=== PATIENT | male | born 1950 | race Caucasian/White ===

== ENCOUNTER → 2018-07-01 | Outpatient (CLI) | payer MEDICARE ==
[~2018-07-01] MED LIST: ACHD5005 PO; ACTOS15 MG PO; ASP325T PO; ASP81TEC PO; ASPI-983 PO; ASPI-992 PO; ATOR40TA PO; ATOR40TA70 PO; ATOR80TA; ATR20T PO; ATRV10T PO; AZIT250T12 PO; BENZ-36 PO; BUDE10.22 INH; CEFP200T2 PO; CEFU250T80 PO; CEPH500C PO; CLOP75TA28 PO; CLPD75T PO; CYCL5TAB PO; GABA-486 PO; GLIM4TAB PO; GLMP2T; HYDR25TA4 PO; INSU100I10 SQ; INSU100V5 SQ; IOHEXOL 350 MG/ML 100 ML (OMNIPAQUE 350) VIAL IV ONE; IPRA3AMP31 NEB; LEVO500T69 PO; LEVO500T80 PO; LEVO750T39 PO; LISI-552 PO; LISI20TA PO; LISI40TA PO; LSNP10T PO; METF-398 PO; METFOR850T PO; METO-370 PO; METO50TA7 PO; NAPR220T66 PO; NS 250 ML (IVPB) BAG IV ONE; NTR.4SL SL; OXYC-12 PO; PANT40TA PO; PANT40TA3 PO; PGLT30T; PGLT30T PO; PNT40TEC PO; PRD10T PO; PRD20T PO; RT-ALBUINH IH; RT-ALBUINH INH; RT-COMBINH IH; SITA100T PO; SITA100T12 PO
[2018-07-01 09:13] LABS: CREATININE SERUM 1.41 MG/DL (0.60-1.30)
--- NOTE | 2018-07-01 11:46 | Diagnostic Imaging Report ---
PROCEDURE: CT chest with contrast only. TECHNIQUE: Multiple contiguous axial images were obtained through the chest after administration of intravenous contrast. INDICATION: Followup pneumonia. COMPARISON: Comparison is made with prior CT chest from 02/21/2016. FINDINGS: No axillary lymphadenopathy is seen. Right paratracheal lymph node has decreased in size since prior study measuring approximately 15 mm x 11 mm compared with 21 mm x 16 mm on prior study. Subcarinal fullness has also improved since prior CT. Left hilum is unremarkable. No discrete lymphadenopathy in the right hilum is identified. No pericardial or pleural fluid is detected. The cavitary lesion involving the right lung apex is again noted measuring approximately 5.5 cm AP by 7.0 cm transverse compared with 5.8 cm x 6.5 cm on prior. The degree of peribronchial thickening along the inferior component of the air-containing mass does appear to be improved when compared with prior CT. There is some thickening along the fissure more inferiorly which appears similar to prior study. There is some mild parenchymal tiny nodularity in the right upper lobe anterior to the cavitary mass. There is some nodularity in the right lower lobe as well with several subcentimeter nodules present. A nodule in the inferior right lower lobe medially measures 6 mm in size. Several additional smaller nodules are present in this region as well. These were not present on prior exam. Left lung is unremarkable. Upper abdomen is unremarkable. IMPRESSION: 1. Right upper lobe cavitary mass, similar in appearance to the examination from 02/21/2016. Area of peribronchial thickening and infiltrate along the inferior margin of the lesion has improved. There has been some development of micronodularity in the right lower lobe since prior CT, indeterminate. This could be on an infectious/inflammatory basis but continued chest CT followup is recommended to confirm stability. Repeat CT chest in 6 months could be performed. Dictated by: Dictated on workstation # [id number]
== END ==
LOC: RAD 08:25
PROVIDERS: ATTEND Nurse Practitioner Family
DX: J18.1 Lobar pneumonia, unspecified organism (principal); R91.8 Other nonspecific abnormal finding of lung field
CPT/HCPCS: 36415; 71260; 82565; 84520

== ENCOUNTER 2018-07-07 05:34 | Outpatient (CLI) | payer MEDICARE ==
[~2018-07-07] VITALS: Ht 180.3 cm; Wt 103.9 kg
[~2018-07-07 05:34] MED LIST changes: -IOHEXOL 350 MG/ML 100 ML (OMNIPAQUE 350) VIAL IV ONE; -NS 250 ML (IVPB) BAG IV ONE
[2018-07-07] MEDS ORDERED: METO-387 PO (13:25)
[2018-07-07] MEDS ORDERED: AMLO10TA6 PO (13:25)
[2018-07-07] MEDS ORDERED: SPIR25TA5 PO (13:25)
== END 2018-07-07 13:36 | disposition home or self-care (01) ==
LOC: PREOP 05:34
PROVIDERS: ATTEND Surgery
DX: Z01.818 Encounter for other preprocedural examination (principal)

== ENCOUNTER 2018-07-14 08:38 | Day surgery (SDC) | payer MEDICARE, OTHER ==
[~2018-07-14] VITALS: Ht 180.3 cm; Wt 103.9 kg
[~2018-07-14 08:38] MED LIST changes: +AMLO10TA6 PO; +METO-387 PO; +SPIR25TA5 PO
[2018-07-14] MEDS ORDERED: LACTATED RINGERS 1,000 ML IV ONE (08:44)
[2018-07-14] MEDS ORDERED: LACTATED RINGERS 1,000 ML IV STA (08:48)
[2018-07-14 09:02] VITALS: BP 129/69
--- NOTE | 2018-07-14 09:32 | Progress Note-Pre Operative ---
Pre-Operative Progress Note H&P Reviewed The H&P was reviewed, patient examined and no changes noted. Time Seen by Provider: 09:30 Date H&P Reviewed: Jul 14, 2018 Time H&P Reviewed: 09:31 Pre-Operative Diagnosis: Surveillance colonoscopy MARY ARAGON DO Jul 14, 2018 09:32
[2018-07-14] MEDS ORDERED: PROPOFOL INJECTION 50 ML IV ONE (09:48)
[2018-07-14] MEDS ORDERED: MIDAZOLAM 2 MG/2 ML (VERSED) VIAL ONE (09:49)
[2018-07-14] MEDS ORDERED: proPOfol 200 MG/20 ML (DIPRIVAN) VIAL IV ONE (10:31)
--- NOTE | 2018-07-14 10:55 | Progress Note-Post Operative ---
Post-Operative Progess Note Surgeon (s)/Skin Therapist (s) Surgeon MARY ARAGON DO Skin Therapist: none Pre-Operative Diagnosis Surveillance colonoscopy Post-Operative Diagnosis colon polyps internal hemorrhoids Procedure & Operative Findings Date of Procedure 07/14/18 Procedure Performed/Findings Colonoscopy with snare polypectomy Anesthesia Type IV Sedation by CORRIDOR REDEVELOPMENT MANAGER Estimated Blood Loss Estimated blood loss (mL): scant Specimens/Packing Specimens Removed Transverse colon polyp x 2 Descending colon polyp MARY ARAGON DO Jul 14, 2018 10:55
--- NOTE | 2018-07-14 10:56 | Endoscopy Discharge Instruct ---
Endo Procedure/Findings Findings 1.: Polyp 2.: Internal Hemorrhoids Discharge Instructions - Activity: You might feel a little sleepy until tomorrow. This is due to the medicine you received to relax you. Until tomorrow, you should: NOT drive a car, operate machinery or power tools. NOT drink any alcoholic beverages. NOT make any important decisions or sign importortant papers. Do not return to work until tomorrow, unless otherwise instructed. Resume previous activities tomorrow. Diet: Start by taking liquids. If you tolerate liquids, advance to solid food. Make an appointment for one week. Notify Physician - If you experience excessive bleeding, unusual abdominal pain, fever, or chest pain, contact your doctor immediately. Follow-Up: - I have received and understand the above instructions and will call my doctor if I have any further questions. Patient Signature Date Nurse Signature Other (Relationship) MARY ARAGON DO Jul 14, 2018 10:56
[2018-07-14 11:25] VITALS: BP 153/71
[2018-07-14 11:45] VITALS: BP 144/67
[2018-07-14 11:50] VITALS: BP 144/67
--- NOTE | 2018-07-14 13:39 | Anesthesia-General Post-Op ---
MAC Patient Condition Mental Status/LOC: Same as Preop Cardiovascular: Satisfactory Nausea/Vomiting: Absent Respiratory: Satisfactory Pain: Controlled Complications: Absent Post Op Complications Complications None Follow Up Care/Instructions Patient Instructions None needed. Anesthesiology Discharge Order Discharge Order Patient is doing well, no complaints, stable vital signs, no apparent adverse anesthesia problems. No complications reported per nursing. JOSE BUCIO CRNA Jul 14, 2018 13:39
--- NOTE | 2018-07-15 00:05 | OPERATIVE REPORT ---
DATE OF SERVICE: PREOPERATIVE DIAGNOSIS: Surveillance colonoscopy. POSTOPERATIVE DIAGNOSES: 1. Polyps. 2. Internal hemorrhoids. 3. Diverticula. 4. Questionable varicosity or AVM. PROCEDURE: Colonoscopy with snare polypectomy. SURGEON: Evin Nguyen DO. CORN PRESS OPERATOR: None. ANESTHESIA: IV sedation by SHACKLER. SPECIMEN: Two polyps from the transverse colon, one from the descending colon. BLOOD LOSS: Scant. FLUIDS: Per anesthesia. POSTOPERATIVE CONDITION: Stable. INDICATION FOR PROCEDURE: The patient is a 68-year-old male who had colonoscopy 5 or 6 years ago and they found some polyps and needs a surveillance colonoscopy. FINDINGS: The patient had 2 polyps in the transverse colon, one in the descending colon. He also had what looked like very minimal and early diverticula and then in one area he had what looked like an AVM or varicosity, picture was taken and he had some internal hemorrhoids. PROCEDURE NOTE: After informed consent was obtained, the patient was brought to the endoscopy suite, placed in the bed left lateral decubitus position. He was administered IV sedation by the SHACKLER who then monitored his vitals the entire time, heart rate, blood pressure and pulse ox and the scope was inserted, pushed in. On the way in, in the transverse colon, saw 2 polyps, elected to do snare polypectomy of these and then continued on to the cecum, able to get into the cecum, took a picture of the appendiceal orifice, noted the ileocecal valve and then slowly withdrew the scope insufflating to look circumferentially at the lozano looking at the cecum up the ascending colon to the hepatic flexure, then down the transverse colon, saw small diverticula, took a picture of this and then into the descending colon. In the descending colon, saw what looked like an AVM or varicosity, took a picture of this. Continued down the descending colon, saw another flat polyp, did another snare polypectomy. Then continued down through the sigmoid into the rectum, retroflexed the rectal vault, saw some internal hemorrhoids, took a picture of this and then removed the scope. The patient tolerated procedure and was recovered in endoscopy suite. Job ID: [id number] DocumentID: [id number] Dictated Date: 07/14/2018 17:05:09 Commercial Instructor Supervisor Date: 07/15/2018 00:04:23 Dictated By: EVIN NGUYEN DO
== END 2018-07-14 11:50 | disposition home or self-care (01) ==
LOC: ENDO 08:38
PROVIDERS: ATTEND Surgery
DX: Z12.11 Encounter for screening for malignant neoplasm of colon (principal); K63.5 Polyp of colon; K57.30 Diverticulosis of large intestine without perforation or abscess without bleeding; K64.8 Other hemorrhoids; E11.43 Type 2 diabetes mellitus with diabetic autonomic (poly)neuropathy; I10 Essential (primary) hypertension; I25.10 Atherosclerotic heart disease of native coronary artery without angina pectoris; J44.9 Chronic obstructive pulmonary disease, unspecified; F17.210 Nicotine dependence, cigarettes, uncomplicated; E66.9 Obesity, unspecified; Z68.31 Body mass index [BMI] 31.0-31.9, adult; Z95.5 Presence of coronary angioplasty implant and graft; Z79.4 Long term (current) use of insulin; Z79.899 Other long term (current) drug therapy
CPT/HCPCS: 82962; 88305

== ENCOUNTER → 2018-12-03 | Outpatient (CLI) | payer OTHER, MEDICARE ==
[~2018-12-03] MED LIST changes: -AMLO10TA6 PO; +AMLO10TA7 PO
== END ==
LOC: CARD 08:32
PROVIDERS: ATTEND Internal Medicine Cardiovascular Disease
DX: I25.10 Atherosclerotic heart disease of native coronary artery without angina pectoris (principal); I11.0 Hypertensive heart disease with heart failure; I50.9 Heart failure, unspecified; E66.9 Obesity, unspecified; K64.0 First degree hemorrhoids; Q27.33 Arteriovenous malformation of digestive system vessel
CPT/HCPCS: 93306

== ENCOUNTER → 2018-12-14 | Outpatient (CLI) | payer MEDICARE, OTHER ==
[~2018-12-14] VITALS: Ht 180.3 cm; Wt 96.6 kg
[~2018-12-14] MED LIST changes: +CATHETER FLUSH 10 ML SYR IV PRN; +REGADENOSON 0.4 MG/5 ML SYR (LEXISCAN) IV ONE
[2018-12-14 09:27] VITALS: BP 132/79
[2018-12-14 09:38] VITALS: BP 126/71
--- NOTE | 2018-12-14 14:28 | STRESS TEST ---
DATE OF SERVICE: 12/14/2018 LEXISCAN MYOVIEW STRESS TEST REPORT REFERRING PHYSICIAN: Kirsty Lance and Antonette Meraz. Baseline heart rate is 76. Baseline blood pressure 132/79. Baseline EKG is sinus rhythm with ventricular bigeminy, nonspecific T-wave abnormality. In summary, the patient was injected with 10.06 mCi of technetium-99 Myoview and the resting images were obtained. Then, the patient received 0.4 mg of Lexiscan followed by 30.3 mCi of technetium-99 Myoview. Throughout the test, there were no EKG changes. The resting and stress images were reviewed and compared in the short axis, horizontal long axis, and vertical long axis views. Review of the images showed fix defect involving the whole inferior wall and inferolateral wall and basal to mid anterior lateral wall with mild sophie-infarct ischemia. SSS is 22, SDS is 4, TID value 1.07. On the gated images, the left ventricle appeared to be dilated with hypokinesia at the inferior wall. Calculated ejection fraction of 40%. CONCLUSION: 1. The patient tolerated Lexiscan well. 2. 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 3. Prominent left ventricle with hypokinesia at the inferior wall. Calculated ejection fraction of 40%. 4. Frequent premature ventricular contractions and ventricular bigeminy noted prior to the stress test and persisted during test Job ID: [id number] DocumentID: [id number] Dictated Date: 12/14/2018 12:03:01 Night Nurse Date: 12/14/2018 14:27:24 Dictated By: FADUMO TALAVERA MD [facility]
== END ==
LOC: CARD 08:09
PROVIDERS: ATTEND Internal Medicine Cardiovascular Disease
DX: I25.10 Atherosclerotic heart disease of native coronary artery without angina pectoris (principal); I11.0 Hypertensive heart disease with heart failure; I50.9 Heart failure, unspecified; Q27.33 Arteriovenous malformation of digestive system vessel; K64.0 First degree hemorrhoids; E66.9 Obesity, unspecified; Z68.29 Body mass index [BMI] 29.0-29.9, adult
CPT/HCPCS: 78452; 93017

== ENCOUNTER 2018-12-23 06:44 | Day surgery (SDC) | payer OTHER ==
[2018-12-23] VITALS (13 sets, daily range): BP systolic 105–128; BP diastolic 48–68
[~2018-12-23] VITALS: Ht 180.3 cm; Wt 96.2 kg
[~2018-12-23 06:44] MED LIST changes: -CATHETER FLUSH 10 ML SYR IV PRN; -REGADENOSON 0.4 MG/5 ML SYR (LEXISCAN) IV ONE
[2018-12-23] MEDS ORDERED: HEParin 1000 UNIT/ML (10ML VIAL) FOR BOLUS ONE (06:46)
[2018-12-23] MEDS ORDERED: LIDOCAINE 1% INJ 20 ML 20 ML VIAL ONE (06:46)
[2018-12-23] MEDS ORDERED: NS IV 1000 ML 3,000 ML ONE (06:46)
[2018-12-23] MEDS ORDERED: NS IV 1000 ML 1,000 ML IV SCH ×2 (07:00→08:49)
[2018-12-23 07:13] LABS: HEMOGLOBIN 12.9 G/DL (13.3-17.7); MEAN PLATELET VOLUME 10.9 FL (7.4-10.4); RED CELL DISTRIBUTION WIDTH 14.6 % (10.0-14.5)
[2018-12-23 07:30] LABS: PROTHROMBIN TIME PATIENT 13.3 SEC (12.2-14.7)
[2018-12-23] MEDS ORDERED: BUDE10.2 IH (07:31)
[2018-12-23] MEDS ORDERED: ATOR40TA PO (07:31)
[2018-12-23] MEDS ORDERED: ALOG12.52 PO (07:31)
[2018-12-23] MEDS ORDERED: TAMS0.4C98 PO (07:31)
[2018-12-23 07:35] LABS: ALBUMIN 3.7 GM/DL (3.2-4.5); BILIRUBIN,TOTAL 0.4 MG/DL (0.1-1.0); CREATININE SERUM 1.54 MG/DL (0.60-1.30); POTASSIUM 4.6 MMOL/L (3.6-5.0); TOTAL PROTEIN 6.7 GM/DL (6.4-8.2)
[2018-12-23] MEDS ORDERED: MIDAZOLAM 5 MG/5 ML (VERSED) VIAL ONE (07:42)
[2018-12-23] MEDS ORDERED: fentaNYL INJECTION 100 MCG/2 ML AMP ONE (07:42)
--- NOTE | 2018-12-23 07:51 | Diagnostic Imaging Report ---
INDICATION: Abnormal stress test, coronary artery disease, heart catheterization and shortness of breath. COMPARISON STUDY: Chest from October 06. FINDINGS: Chronic volume loss with pleural thickening of the right apex is again identified. The left lung is clear. Heart size and vascularity are normal. IMPRESSION: Stable chest with volume loss on the right side and right-sided pleural thickening. Dictated by: Dictated on workstation # [id number]
--- NOTE | 2018-12-23 08:49 | Cardiac Procedure Note-CS/ASA ---
Pre-Procedure Note Pre-Op Procedure Note H&P Reviewed The H&P was reviewed, patient examined and no changes noted. Date H&P Reviewed: Dec 23, 2018 Time H&P Reviewed: 08:00 Conscious Sedation Pre-Proced Time 08:00 ASA Score 3 For ASA 3 and 4: Consider anesthesia and medical clearance. Also, for patients with a history of failed moderate sedation consider anesthesia. Airway Lungs Heart ASA score ASA 1: a normal healthy patient ASA 2: a patient with a mild systemic disease (mid diabetes, controlled hypertension, obesity x ASA 3: a patient with a severe systemic disease that limits activity (angina , COPD, prior Myocardial infarction) ASA 4: a patient with an incapacitating disease that is a constant threat to life (CHF, renal failure) ASA 5: a moribund patient not expected to survive 24 hrs. (ruptured aneurysm) ASA 6: a declared brain- patient whose organs are being harvested. For emergent operations, add the letter E after the classification Mallampati Classification Grade 3 Sedation Plan Analgesia, Amnesia, Plan communicated to team members, Discussed options with patient/fam, Discussed risks with patient/fam The patient is an appropriate candidate to undergo the planned procedure, sedation, and anesthesia. The patient immediately re-assessed prior to indication. FADUMO TALAVERA MD Dec 23, 2018 08:49
--- NOTE | 2018-12-23 08:51 | Discharge Inst-Post CATH ---
Discharge Inst-CATH/EP Post Cardiac Cath/EP D/C Inst Follow Up/Plan Hold metformin for [address] Pizarro's office in 2-4 weeks CARDIAC CATH DISCHARGE INSTRUCTIONS *Hold Metformin for 48 hours post heart cath. ACTIVITY * Go Home directly and rest. * Limit activity of the leg (or wrist if it was used) for 7 days including aerobics, swimming, jogging, bicycling, etc. * Restrict stair-climbing for 7 days if possible, if not, climb up with your non -cath leg, then bring together on the same step. * Avoid lifting, pushing, pulling or excessive movement of the affected extremity for 7 days. * Customary sexual activity may be resumed after 2 days-use caution not to use a position that strains or causes pain to the affected extremity. * No driving for 24 hours. * NO SMOKING. * Avoid straining for bowel movements for 7 days. * Gentle walking on level ground is allowed. * Returning to work will depend on the type of procedure and the results. Your doctor will discuss this with you. CALL YOUR DOCTOR FOR ANY OF THE FOLLOWING: *If bleeding from the puncture site occurs- Apply gentle pressure to site with clean cloth and call your doctor or EMS. * If a knot or lump forms under the skin, increases in size, or causes pain. * If bruising appears to be worsening or moving further down your leg instead of disappearing. * Temperature above 101 F. CARE OF YOUR GROIN INCISION; * Bruising or purple discoloration of the skin near the puncture site is common. * You may shower only, no bathtub bathing for 5 days. Be careful to avoid slipping as your leg may feel stiff. * If a closure device was used on your femoral artery, please see the attached guide regarding care of the device and your leg. * Leave the dressing on, until removed by office staff. CARE OF YOUR WRIST INCISION; * Bruising or purple discoloration of the skin near the puncture site is common. * You may shower. * DO NOT submerge wrist. * Leave dressing on, until removed by office staff.. FADUMO PIZARRO MD Dec 23, 2018 08:51
[2018-12-23] MEDS ORDERED: PATIENT MAY USE OWN MEDS, ALL PO SCH (09:00)
--- NOTE | 2018-12-23 09:10 | Cardiac Cath Report ---
Cardiac Cath Report Physician (s)/Consumer Attorney (s) Physician FADUMO TALAVERA MD Pre-Procedure Diagnosis Pre-Procedure Diagnosis: coronary artery disease, peripheral arterial disease Post-Procedure Note Procedure Start Date: Dec 23, 2018 Name of Procedure: left heart catheterization Bilateral lower extremity runoff Findings/Procedure Note PROCEDURE NOTE: 68 years old gentleman with extensive history of coronary artery disease multiple interventions in the past. History of peripheral arterial disease, hypertension hyperlipidemia. Patient had an abnormal stress test, had an abnormal CARMEN and pain and numbness in his lower extremities. Next After explaining the procedure to the patient, all pros and cons were explained , all questions were answered. The patient signed the consent and then he was placed on the cardiac catheterization laboratory. Groin was prepped SL fashion local anesthesia was used. Sheath placed in the right femoralartery. Alvin right and left catheter were used to access the coronary system. Alvin right was advanced to the left ventricular cavity, pressure was measured no left ventriculogram was done to limit the amount of contrast used. Using 6 mL of contrast right lower extremity runoff was done through the sheath then I used a rim catheter across over to the left leg and did runoff to the left leg. At the end of the procedure the sheath was removed. Closure device was not used , manual pressure applied FINDINGS: Hemodynamics LV 124/25 and diastolic pressure of 25 Aorta 128/48 mean of 74 ANATOMY: Left Main has mild disease nonobstructive disease Left Anterior Descending is small to moderate in size, has patent stent in the midportion with mild to moderate disease diffusely in the LAD, the first diagonal branch is very small artery with severe stenosis. Not amendable to intervention Left Circumflex is moderate in size with multiple stents with mild to moderate in-stent restenosis, nonobstructive disease Right Coronory Artery is small to moderate in size, multiple stents with moderate in-stent restenosis, the right PDA has moderate to severe stenosis, fairly small artery LV Gram was not done, pressure was measured Right leg runoff: Heavily calcified arteries with moderate to severe stenosis in the mid to distal SFA, total occlusion below the trifurcation with reconstruction of the vessels down by the foot Left leg runoff: Heavily calcified artery diffusely, moderate to severe stenosis in the mid left SFA, total occlusion below the trifurcation very small artery reconstructed by collaterals CONCLUSION: 1. Heavily calcified coronary system with multiple stents in the LAD, circumflex and right coronary artery with [id number] in-stent restenosis nonobstructive disease. 2. Severe stenosis at the first diagonal branch and the right PDA, both arteries are fairly small arteries. Medical therapy is recommended 3. Heavily calcified right SFA with moderate to severe stenosis at the mid section, total occlusion below the trifurcation, fairly small arteries. 4. Heavily calcified left SFA with moderate to severe stenosis at the mid section, total occlusion below the trifurcation fairly small arteries. DISCUSSION AND RECOMMENDATION: Regarding the coronary system I recommend medical therapy, risk factors modification, no need for intervention at this time. Regarding the peripheral arterial disease, I can consider intervention on the SFA bilaterally patient has significant symptoms. I would recommend intervention if patient started to have critical limb ischemia otherwise I recommend starting an exercise program and medical therapy Anesthesia Type: Conscious Sedation Estimated blood loss (mL): 30 ml Contrast Amount: 45 ml Total Radiation Dose: 746 mGy Post-Procedure Diagnosis Post-operative diagnosis: Coronary artery disease Peripheral arterial disease Claudication Hypertension Hyperlipidemia FADUMO TALAVERA MD Dec 23, 2018 09:10
== END 2018-12-23 13:50 | disposition home or self-care (01) ==
LOC: CATH 06:44 → SDC 09:06 → CATH 13:50
PROVIDERS: ATTEND Internal Medicine Cardiovascular Disease
DX: I25.10 Atherosclerotic heart disease of native coronary artery without angina pectoris (principal); E11.51 Type 2 diabetes mellitus with diabetic peripheral angiopathy without gangrene; I11.0 Hypertensive heart disease with heart failure; I50.9 Heart failure, unspecified; E78.2 Mixed hyperlipidemia; I65.29 Occlusion and stenosis of unspecified carotid artery; J44.9 Chronic obstructive pulmonary disease, unspecified; F17.210 Nicotine dependence, cigarettes, uncomplicated; Z79.4 Long term (current) use of insulin; Z79.899 Other long term (current) drug therapy; Z79.82 Long term (current) use of aspirin; Z86.010 Personal history of colon polyps
CPT/HCPCS: 36415; 71045; 75716; 80053; 80061; 85027; 85610; 85730; 87081; 93458

== ENCOUNTER 2019-03-17 14:07 | Outpatient (RCR) | payer OTHER, MEDICARE ==
[~2019-03-17 14:07] MED LIST changes: +ALOG12.52 PO; +BUDE10.2 IH; +TAMS0.4C98 PO
== END 2019-04-01 | disposition home or self-care (01) ==
LOC: CR 14:07
PROVIDERS: ATTEND Internal Medicine Cardiovascular Disease
DX: I20.8 Other forms of angina pectoris (principal)
CPT/HCPCS: 82962; 93798

== ENCOUNTER 2019-05-24 10:00 | Outpatient (RCR) | payer MEDICARE, OTHER ==
[2019-06-11] MEDS ORDERED: NICO-627 BC (14:59)
[2019-06-11] MEDS ORDERED: NAPR-915 PO (14:59)
[2019-06-11] MEDS ORDERED: MENT113G5 TP (14:59)
[2019-06-11] MEDS ORDERED: ALBU18HF2 INH (14:59)
[2019-06-11] MEDS ORDERED: METF-398 PO (14:59)
[2019-06-11] MEDS ORDERED: TIZA4TAB4 PO (14:59)
[2019-06-11] MEDS ORDERED: NICO-533 TD (14:59)
[2019-06-11] MEDS ORDERED: GLIP5TAB13 PO (14:59)
[2019-06-11] MEDS ORDERED: IPRA3AMP31 IH (14:59)
[2019-06-11] MEDS ORDERED: NICO-588 TD (15:07)
[2019-06-11] MEDS ORDERED: METO-395 PO (15:09)
[2019-06-14] MEDS ORDERED: FLUT16SP22 NS (10:05)
[2019-06-14] MEDS ORDERED: MONT10TA24 PO (10:05)
[2019-06-14] MEDS ORDERED: LORA10TA7 PO (10:05)
[2019-06-14] MEDS ORDERED: CEFD300C3 PO (10:06)
== END 2019-06-23 | disposition home or self-care (01) ==
LOC: CR3 10:00
PROVIDERS: ATTEND Internal Medicine Cardiovascular Disease
DX: Z29.8 Encounter for other specified prophylactic measures (principal)

== ENCOUNTER 2019-05-24 10:24 | Outpatient (RCR) | payer OTHER, MEDICARE ==
[2019-06-11] MEDS ORDERED: NAPR-915 PO (14:59)
[2019-06-11] MEDS ORDERED: GLIP5TAB13 PO (14:59)
[2019-06-11] MEDS ORDERED: NICO-533 TD (14:59)
[2019-06-11] MEDS ORDERED: MENT113G5 TP (14:59)
[2019-06-11] MEDS ORDERED: IPRA3AMP31 IH (14:59)
[2019-06-11] MEDS ORDERED: TIZA4TAB4 PO (14:59)
[2019-06-11] MEDS ORDERED: ALBU18HF2 INH (14:59)
[2019-06-11] MEDS ORDERED: NICO-627 BC (14:59)
[2019-06-11] MEDS ORDERED: METF-398 PO (14:59)
[2019-06-11] MEDS ORDERED: NICO-588 TD (15:07)
[2019-06-11] MEDS ORDERED: METO-395 PO (15:09)
[2019-06-14] MEDS ORDERED: FLUT16SP22 NS (10:05)
[2019-06-14] MEDS ORDERED: MONT10TA24 PO (10:05)
[2019-06-14] MEDS ORDERED: LORA10TA7 PO (10:05)
[2019-06-14] MEDS ORDERED: CEFD300C3 PO (10:06)
== END 2019-07-06 | disposition home or self-care (01) ==
LOC: CR 10:24
PROVIDERS: ATTEND Internal Medicine Cardiovascular Disease
DX: I20.8 Other forms of angina pectoris (principal)
CPT/HCPCS: 93798

== ENCOUNTER 2019-06-11 10:25 | Inpatient (IN) | payer MEDICARE, OTHER ==
[~2019-06-11] VITALS: Ht 180.3 cm; Wt 102.1 kg
[~2019-06-11 10:25] MED LIST changes: +methylPREDNISolone 125 MG (Solu-MEDROL) VIAL ONE
--- NOTE | 2019-06-11 10:40 | ED Respiratory ---
General Chief Complaint: Respiratory Problems Stated Complaint: SOA Source: patient, family Exam Limitations: no limitations History of Present Illness Date Seen by Provider: Jun 11, 2019 Time Seen by Provider: 10:40 Initial Comments To ER with shortness of breath. He was referred here from Dr. Pizarro's office where he presented with oxygen saturation of about 70%. He States he was there for routine follow-up visit. Patient states he smokes at least one pack of cigarettes per day and has done so for many years. He states that he wears oxygen at home but is not prescribed. He had an episode of pneumonia a few years ago, was discharged home on a oxygen concentrator which was never picked up. He's been wearing that at home at about 2-4 L prn. states last night he was unable to sleep lying flat, had to have his head elevated. Denies fevers chills or cough. Timing/Duration: constant, getting worse Severity: moderate Prior Episodes/Possible Cause: occasional episodes Associated Symptoms: shortness of breath, wheezing Allergies and Home Medications Allergies Coded Allergies: No Known Drug Allergies (Verified , 05/02/08) Home Medications Albuterol Sulfate 6.7 Gm Hfa.aer.ad, 2 PUFF IH Q4H PRN for SHORTNESS OF BREATH, (Reported) Alogliptin Benzoate 12.5 Mg Tablet, 12.5 MG PO DAILY, (Reported) Amlodipine Besylate 10 Mg Tablet, 10 MG PO DAILY, (Reported) Aspirin 81 Mg Tablet.dr, 81 MG PO DAILY, (Reported) Aspirin/Acetaminophen/Caffeine 1 Each Tablet, 2 TAB PO DAILY PRN for PAIN-MILD, (Reported) Atorvastatin Calcium 40 Mg Tablet, 40 MG PO HS, (Reported) Budesonide/Formoterol Fumarate 10.2 Gm Hfa.aer.ad, 2 PUFF IH BID, (Reported) Clopidogrel Bisulfate 75 Mg Tablet, 75 MG PO DAILY, (Reported) Gabapentin 100 Mg Capsule, 100 MG PO BID, (Reported) Glimepiride 4 Mg Tablet, 4 MG PO DAILY, (Reported) Hydrochlorothiazide 25 Mg Tablet, 25 MG PO DAILY, (Reported) Insulin Glargine,Hum.rec.anlog 100 Unit/1 Ml Insuln.pen, 16 UNITS SQ DAILY@1200, (Reported) Lisinopril 40 Mg Tablet, 40 MG PO DAILY, (Reported) Metoprolol Succinate 25 Mg Tab.er.24h, 50 MG PO DAILY, (Reported) Pantoprazole Sodium 40 Mg Tablet.dr, 40 MG PO DAILY, (Reported) Spironolactone 25 Mg Tablet, 25 MG PO DAILY, (Reported) Tamsulosin HCl 0.4 Mg Cap, 0.4 MG PO DAILY, (Reported) Patient Home Medication List Home Medication List Reviewed: Yes Review of Systems Review of Systems Constitutional: see HPI EENTM: see HPI Respiratory: see HPI, short of breath Cardiovascular: no symptoms reported Genitourinary: no symptoms reported Musculoskeletal: no symptoms reported Skin: no symptoms reported Psychiatric/Neurological: No Symptoms Reported Hematologic/Lymphatic: No Symptoms Reported Past Pacdsrn-Jbgdiq-Kfjmgy Hx Patient Social History Type Used: Cigarettes Recent Hopitalizations: No Immunizations Up To Date Tetanus Booster (TDap): Unknown PED Vaccines UTD: Yes Date of Pneumonia Vaccine: Jul 25, 2017 Date of Influenza Vaccine: Jul 23, 2018 Seasonal Allergies Seasonal Allergies: No Past Medical History Surgeries: Yes (CHEST TUBE INSERTION, heart cathx9 stents) Coronary Stent Respiratory: Yes COPD Currently Using CPAP: No Currently Using BIPAP: No Cardiac: Yes Coronary Artery Disease, Hypertension Neurological: No Neuropathy Reproductive Disorders: No Genitourinary: Yes Gastrointestinal: No Hepatitis, Polyps Musculoskeletal: Yes Arthritis Endocrine: Yes Diabetes, Non-Insulin dep HEENT: No (hemmoraging in back of both eyes-pt see specialist for it) Cataract Cancer: No Psychosocial: No Integumentary: No Blood Disorders: No Family Medical History Patient reports no known family medical history. No Pertinent Family Hx Physical Exam Vital Signs - First Documented 06/11/19 06/11/19 10:25 10:44 Temp 37.0 Pulse 85 Resp 28 B/P (MAP) 152/82 (105) Pulse Ox 96 O2 Delivery OxyMask O2 Flow Rate 11.00 Capillary Refill : Height: 5'11.00" Weight: 212lbs. 0.0oz. 96.096921ql; 29.6 BMI Method:Stated General Appearance: WD/WN, no apparent distress, other (oxygen saturation 66% with good waveform on arrival. Quickly increased to 95% with supplemental oxygen at 10 L via mask. Despite the hypoxia he is alert and oriented conversing, speaks in full sentences, no accessory muscle use. ) Eyes: Bilateral Eye Normal Inspection, Bilateral Eye PERRL, Bilateral Eye EOMI HEENT: PERRL/EOMI, normal ENT inspection Neck: non-tender, full range of motion, other (there is no jugular vein distention) Respiratory: no respiratory distress, no accessory muscle use, decreased breath sounds (decreased throughout, crackles bilateral bases) Cardiovascular: regular rate, rhythm, no murmur Gastrointestinal: normal bowel sounds, non tender, soft Extremities: normal range of motion, non-tender (2+ pitting edema bilateral lower extremities which she states is normal for him) Neurologic/Psychiatric: alert, normal mood/affect, oriented x 3 Skin: normal color, warm/dry Progress/Results/Core Measures Suspected Sepsis SIRS Temperature: Pulse: Respiratory Rate: Laboratory Tests 06/11/19 10:33: White Blood Count 12.5H Blood Pressure / Mean: Laboratory Tests 06/11/19 10:33: Creatinine 1.60H, INR Comment 1.1, Platelet Count 280, Total Bilirubin 0.5 Results/Orders Lab Results Laboratory Tests Test 06/11/19 10:33 Range/Units White Blood Count 12.5 H 4.3-11.0 10^3/uL Red Blood Count 4.07 L 4.35-5.85 10^6/uL Hemoglobin 11.0 L 13.3-17.7 G/DL Hematocrit 35 L 40-54 % Mean Corpuscular Volume 87 80-99 FL Mean Corpuscular Hemoglobin 27 25-34 PG Mean Corpuscular Hemoglobin Concent 31 L 32-36 G/DL Red Cell Distribution Width 16.7 H 10.0-14.5 % Platelet Count 280 130-400 10^3/uL Mean Platelet Volume 10.9 H 7.4-10.4 FL Neutrophils (%) (Auto) 83 H 42-75 % Lymphocytes (%) (Auto) 8 L 12-44 % Monocytes (%) (Auto) 9 0-12 % Eosinophils (%) (Auto) 1 0-10 % Basophils (%) (Auto) 0 0-10 % Neutrophils # (Auto) 10.3 H 1.8-7.8 X 10^3 Lymphocytes # (Auto) 1.0 1.0-4.0 X 10^3 Monocytes # (Auto) 1.1 H 0.0-1.0 X 10^3 Eosinophils # (Auto) 0.1 0.0-0.3 10^3/uL Basophils # (Auto) 0.0 0.0-0.1 10^3/uL Prothrombin Time 14.3 12.2-14.7 SEC INR Comment 1.1 0.8-1.4 Activated Partial Thromboplast Time 27 24-35 SEC Blood Gas Puncture Site LR Blood Gas Patient Temperature 36.8 Arterial Blood pH 7.35 L 7.37-7.43 Arterial Blood Partial Pressure CO2 47 H 35-45 MMHG Arterial Blood Partial Pressure O2 81 79-93 MMHG Arterial Blood HCO3 25 23-27 MMOL/L Arterial Blood Total CO2 26.8 21.0-31.0 MMOL/L Arterial Blood Oxygen Saturation 94 94-100 % Arterial Blood Base Excess 0.5 -2.5-2.5 MMOL/L Howie Test YES-POS Blood Gas Ventilator Setting NO Blood Gas Inspired Oxygen 10L Sodium Level 141 135-145 MMOL/L Potassium Level 4.4 3.6-5.0 MMOL/L Chloride Level 106 98-107 MMOL/L Carbon Dioxide Level 24 21-32 MMOL/L Anion Gap 11 5-14 MMOL/L Blood Urea Nitrogen 26 H 7-18 MG/DL Creatinine 1.60 H 0.60-1.30 MG/DL Estimat Glomerular Filtration Rate 43 BUN/Creatinine Ratio 16 Glucose Level 122 H 70-105 MG/DL Calcium Level 9.0 8.5-10.1 MG/DL Corrected Calcium 9.3 8.5-10.1 MG/DL Magnesium Level 1.6 1.6-2.4 MG/DL Total Bilirubin 0.5 0.1-1.0 MG/DL Aspartate Amino Transf (AST/SGOT) 17 5-34 U/L Alanine Aminotransferase (ALT/SGPT) 13 0-55 U/L Alkaline Phosphatase 70 40-136 U/L Total Creatine Kinase 155 30-200 U/L Creatine Kinase MB 4.9 <6.6 NG/ML Troponin I < 0.028 <0.028 NG/ML B-Type Natriuretic Peptide 411.0 H <100.0 PG/ML Total Protein 6.8 6.4-8.2 GM/DL Albumin 3.6 3.2-4.5 GM/DL My Orders Orders - RICHIE LOFTON APRN Methylprednisolone Sod Succ (Solu-Medrol (06/11/19 10:25) Methylprednisolone Sod Succ (Solu-Medrol (06/11/19 10:45) Albuterol/Ipra Inhalation Soln (Duoneb I (06/11/19 10:45) Svn Small Volume Nebulizer (06/11/19 10:38) Piperacillin Sodium/Tazobactam (Zosyn Vi (06/11/19 11:30) Medications Given in ED Current Medications Medications Dose Ordered Sig/[place] Route Start Time Stop Time Status Last Admin Dose Admin Albuterol/ Ipratropium 3 ml ONCE ONCE INH 06/11/19 10:45 06/11/19 10:46 DC 06/11/19 10:44 3 ML Methylprednisolone Sodium Succinate 125 mg ONCE ONCE IVP 06/11/19 10:45 06/11/19 10:46 DC 06/11/19 10:35 125 MG Vital Signs/I&O 06/11/19 06/11/19 10:25 10:44 Temp 37.0 Pulse 85 Resp 28 B/P (MAP) 152/82 (105) Pulse Ox 96 O2 Delivery OxyMask O2 Flow Rate 11.00 Capillary Refill : Diagnostic Imaging Diagonstic Imaging: Xray Plain Films/CT/US/NM/MRI: chest Comments NAME: VINCENT JASSO MED REC#: [id number] PT STATUS: REG ER : 1950 PHYSICIAN: VICKEY JONES DO ADMIT DATE: 06/11/19/ER Draft Date of Exam:06/11/19 CHEST 1 VIEW, AP/PA ONLY INDICATION: Shortness of air. TIME OF EXAM: 10:50 AM Correlation is made with prior study 12/23/2018. FINDINGS: The heart size is stable. Chronic right upper lobe density is stable. Patient has developed some patchy parenchymal density in the right base since prior. Right hemidiaphragm is chronically elevated. Left lung is fairly clear. No effusion or pneumothorax is seen. IMPRESSION: Development of patchy right basilar infiltrate or atelectasis since exam from 12/23/2018. Dictated on workstation # [id number] Dict: 06/11/19 1102 Trans: 06/11/19 1106 [id number] Interpreted by: MATTHIEU RUDD MD Electronically signed by: Departure Communication (Admissions) Time/Spoke to Admitting Phy: 11:[address] Bacon, agrees to admit. At this time he is at 6 L via mask, 97%. Blood pressure 136/63, heart rate is 86. Speaks in full sentences, no respiratory distress. Respiratory rate is 24. Impression Primary Impression: COPD exacerbation Additional Impression: Pneumonia Disposition: ADMITTED INPATIENT Condition: Stable Admissions Decision to Admit Reason: Admit from ER (General) Decision to Admit/Date: Jun 11, 2019 Time/Decision to Admit Time: 11:24 Departure-Patient Inst. Referrals: [facility] (PCP) Primary Care Physician MIKEY ZAZUETA APRN (Family) Primary Care Physician RICHIE LOFTON APRN Jun 11, 2019 10:40
[2019-06-11 10:43] LABS: BASOPHILS % (AUTO) 0 % (0-10); EOSINOPHILS # (AUTO) 0.1 10^3/uL (0.0-0.3); EOSINOPHILS % (AUTO) 1 % (0-10); HEMATOCRIT 35 % (40-54); LYMPHOCYTES % (AUTO) 8 % (12-44); MEAN CORPUSCULAR HEMOGLOBIN 27 PG (25-34); MEAN CORPUSCULAR HGB CONC 31 G/DL (32-36); MEAN CORPUSCULAR VOLUME 87 FL (80-99); MEAN PLATELET VOLUME 10.9 FL (7.4-10.4); MONOCYTES # (AUTO) 1.1 X 10^3 (0.0-1.0); MONOCYTES % (AUTO) 9 % (0-12); NEUTROPHILS # (AUTO) 10.3 X 10^3 (1.8-7.8); NEUTROPHILS % (AUTO) 83 % (42-75); PLATELET COUNT 280 10^3/uL (130-400); RED CELL DISTRIBUTION WIDTH 16.7 % (10.0-14.5); WHITE BLOOD COUNT 12.5 10^3/uL (4.3-11.0)
[2019-06-11] MEDS ORDERED: methylPREDNISolone 125 MG (Solu-MEDROL) VIAL IVP ONE (10:45)
[2019-06-11] MEDS ORDERED: RT-ALBUTEROL/IPRATROPIUM 3 ML (DUONEB) VIAL INH ONE (10:45)
[2019-06-11 10:46] LABS: ABG BASE EXCESS 0.5 MMOL/L (-2.5-2.5); ABG OXYGEN SATURATION 94 % (94-100); ABG PCO2 47 MMHG (35-45); ABG PH 7.35 (7.37-7.43); ABG PO2 81 MMHG (79-93); ABG TCO2 26.8 MMOL/L (21.0-31.0)
--- NOTE | 2019-06-11 10:46 | NUR ---
PT UNSURE OF MEDS
[2019-06-11 10:47] LABS: ALLENS TEST YES-POS; INSPIRED O2 10L; PATIENT TEMP 36.8; VENTILATOR NO
[2019-06-11 10:50] LABS: INR 1.1 (0.8-1.4); PROTHROMBIN TIME PATIENT 14.3 SEC (12.2-14.7)
[2019-06-11 11:00] LABS: ALANINE AMINOTRANSFERASE 13 U/L (0-55); ALBUMIN 3.6 GM/DL (3.2-4.5); ALKALINE PHOSPHATASE 70 U/L (40-136); BILIRUBIN,TOTAL 0.5 MG/DL (0.1-1.0); BUN/CREATININE RATIO 16; CARBON DIOXIDE 24 MMOL/L (21-32); CHLORIDE 106 MMOL/L (98-107); CREATINE KINASE 155 U/L (30-200); GFR ESTIMATED 43; GLUCOSE 122 MG/DL (70-105); MAGNESIUM 1.6 MG/DL (1.6-2.4); POTASSIUM 4.4 MMOL/L (3.6-5.0); SODIUM 141 MMOL/L (135-145); TOTAL PROTEIN 6.8 GM/DL (6.4-8.2)
[2019-06-11 11:06] LABS: CREATINE KINASE MB 4.9 NG/ML (<6.6)
--- NOTE | 2019-06-11 11:06 | Diagnostic Imaging Report ---
INDICATION: Shortness of air. TIME OF EXAM: 10:50 AM Correlation is made with prior study 12/23/2018. FINDINGS: The heart size is stable. Chronic right upper lobe density is stable. Patient has developed some patchy parenchymal density in the right base since prior. Right hemidiaphragm is chronically elevated. Left lung is fairly clear. No effusion or pneumothorax is seen. IMPRESSION: Development of patchy right basilar infiltrate or atelectasis since exam from 12/23/2018. Dictated by: Dictated on workstation # [id number]
--- NOTE | 2019-06-11 11:21 | NUR ---
PT 02 TURNED DOWN TO 6L VIA MASK SAT 97%
[2019-06-11] MEDS: PIPERACILLIN SODIUM/TAZOBACTAM 4.5 GM in NS (IVPB) 100 ML IV ONE ×2 (12:15→12:30)
[2019-06-11 12:25] VITALS: BP 132/68
[2019-06-11] MEDS ORDERED: ACETAMINOPHEN 325 MG TABLET PO PRN (13:15)
[2019-06-11] MEDS ORDERED: CATHETER FLUSH 10 ML SYR IV PRN (13:15)
[2019-06-11 13:59] VITALS: BP 124/65
[2019-06-11] MEDS: CATHETER FLUSH 10 ML SYR IV SCH ×2 (14:56→21:58)
[2019-06-11] MEDS ORDERED: METF-398 PO (14:59)
[2019-06-11] MEDS ORDERED: NICO-533 TD (14:59)
[2019-06-11] MEDS ORDERED: NAPR-915 PO (14:59)
[2019-06-11] MEDS ORDERED: MENT113G5 TP (14:59)
[2019-06-11] MEDS ORDERED: NICO-627 BC (14:59)
[2019-06-11] MEDS ORDERED: GLIP5TAB13 PO (14:59)
[2019-06-11] MEDS ORDERED: TIZA4TAB4 PO (14:59)
[2019-06-11] MEDS ORDERED: ALBU18HF2 INH (14:59)
[2019-06-11] MEDS ORDERED: IPRA3AMP31 IH (14:59)
[2019-06-11] MEDS ORDERED: RT-ALBUTEROL/IPRATROPIUM 3 ML (DUONEB) VIAL INH PRN (15:00)
[2019-06-11] MEDS ORDERED: NICO-588 TD (15:07)
[2019-06-11] MEDS ORDERED: METO-395 PO (15:09)
--- NOTE | 2019-06-11 15:17 | NUR ---
PATIENT DOES NOT KNOW HIS MEDICATIONS. HE STATES HE GETS SOME AT [facility] AND [facility] [place]. I TRIED TO CALL HIS BUT HAD TO LEAVE A MESSAGE AND SHE HAS NOT CALLED BACK AT THIS TIME. I [facility] LIST [facility] FROM [facility]. THE EXT MED HX SHOWS ALL OF [facility]'S FILLS EXCEPT ADDITIONALLY THEY FILLED DUONEB Q6H PRN 05-26-19. [facility] FILL[facility]: 05-21-19 NICOTINE 21MG PATCH DAILY #14 05-19-19 NAPROXEN 500MG BID #120 05-19-19 GLIPIZIDE 5MG 1 & 1/2 TAB DAILY #135 04-20-19 SYMBICORT 160 2 PUFFS BID #3 04-20-19 NICOTINE L2MG LOZENGE Q1H PRN #81 04-19-19 INSULIN GLARGINE 10 UNITS DAILY 04-16-19 NICOTINE 14MG PATCH DAILY #28 04-15-19 ALOGLIPTIN 12.5MG DAILY #90 04-14-19 TAMSULOSIN 0.4MG DAILY #90 04-07-19 TIZANIDINE 4MG 1/2 BID PRN #30 04-07-19 MENTHOL/M-SALICYLATE 10-25% TOP CREAM AAA TID PRN 03-17-19 ATORVASTATIN 40MG 1 TAB HS #90 NON-VA MEDS INCLUDED ON THE [facility]S MED LIST: ASPIRIN 81MG DAILY (ASSUME ITS OTC) PLAVIX 75MG DAILY HCTZ 25MG 1/2 TAB DAILY LISINOPRIL 40MG 1/2 TAB DAILY METOPROLOL SUCCINATE 100MG 1/2 TAB DAILY PROTONIX 40MG DAILY SINCE I WAS UNABLE TO VERIFY THE LAST FILL DATES ON THESE MEDICATIONS I DID NOT REVIEW THEM BUT DID LEAVE THEM ON THE MED REC. PREVIOUSLY REPORTED ON THE MED REC WAS SPIRONOLACTONE, GLIMEPIRIDE, AND EXCEDRIN. I REMOVED THESE AT THIS TIME SINCE THEY HAVE NOT BEEN FILLED RECENTLY AT [facility] AND ARE NOT REPORTED ON THE LIST FROM THE [facility].
[2019-06-11 16:00] VITALS: BP 124/64
[2019-06-11] MEDS: inSUlin ASPART (NovoLOG) 1 UNIT/0.01 ML (CHARGE PER UNIT) SC SCH ×2 (17:23→21:58)
[2019-06-11] MEDS: methylPREDNISolone 125 MG (Solu-MEDROL) VIAL IV SCH (17:24)
[2019-06-11] MEDS: RT-ALBUTEROL/IPRATROPIUM 3 ML (DUONEB) VIAL INH SCH ×2 (19:38→23:15)
[2019-06-11 19:53] VITALS: BP 107/86
[2019-06-11 20:00] VITALS: BP 137/79
[2019-06-11] MEDS ORDERED: NICOTINE 21 MG (NICODERM) PATCH ONE (20:50)
[2019-06-11] MEDS ORDERED: GABAPENTIN 100 MG (NEURONTIN) CAP ONE (20:51)
[2019-06-11 21:00] VITALS: BP 116/77
[2019-06-11] MEDS: PIPERACILLIN/TAZO 4.5 GM/NS 100 ML IV SCH ×2 (21:58)
[2019-06-11] MEDS: GABAPENTIN 100 MG (NEURONTIN) CAP PO SCH (21:58)
[2019-06-12 00:02] VITALS: BP 136/68
[2019-06-12] MEDS: RT-ALBUTEROL/IPRATROPIUM 3 ML (DUONEB) VIAL INH SCH ×5 (02:51→18:56)
[2019-06-12] MEDS: methylPREDNISolone 125 MG (Solu-MEDROL) VIAL IV SCH (03:01)
[2019-06-12 03:36] LABS: BASOPHILS % (AUTO) 0 % (0-10); EOSINOPHILS % (AUTO) 0 % (0-10); HEMATOCRIT 35 % (40-54); LYMPHOCYTES # (AUTO) 0.4 X 10^3 (1.0-4.0); LYMPHOCYTES % (AUTO) 4 % (12-44); MEAN CORPUSCULAR HEMOGLOBIN 27 PG (25-34); MEAN CORPUSCULAR HGB CONC 32 G/DL (32-36); MEAN CORPUSCULAR VOLUME 86 FL (80-99); MEAN PLATELET VOLUME 11.4 FL (7.4-10.4); MONOCYTES # (AUTO) 0.3 X 10^3 (0.0-1.0); MONOCYTES % (AUTO) 2 % (0-12); NEUTROPHILS # (AUTO) 10.5 X 10^3 (1.8-7.8); NEUTROPHILS % (AUTO) 94 % (42-75); PLATELET COUNT 286 10^3/uL (130-400); RED CELL DISTRIBUTION WIDTH 16.6 % (10.0-14.5); WHITE BLOOD COUNT 11.1 10^3/uL (4.3-11.0)
[2019-06-12 04:00] LABS: ALBUMIN 3.5 GM/DL (3.2-4.5); BILIRUBIN,TOTAL 0.5 MG/DL (0.1-1.0); CALCIUM 8.8 MG/DL (8.5-10.1); CREATININE SERUM 2.12 MG/DL (0.60-1.30); POTASSIUM 4.9 MMOL/L (3.6-5.0)
[2019-06-12 04:27] LABS: LYMPHOCYTES % (MANUAL) 4 %; NEUTROPHILS % (MANUAL) 96 %
[2019-06-12] MEDS ORDERED: inSUlin ASPART (NovoLOG) 1 UNIT/0.01 ML (CHARGE PER UNIT) ONE (04:49)
[2019-06-12 05:05] VITALS: BP 130/70
[2019-06-12] MEDS: CATHETER FLUSH 10 ML SYR IV SCH ×3 (05:05→22:00)
[2019-06-12] MEDS: PIPERACILLIN/TAZO 4.5 GM/NS 100 ML IV SCH ×6 (05:05→20:51)
[2019-06-12] MEDS: inSUlin ASPART (NovoLOG) 1 UNIT/0.01 ML (CHARGE PER UNIT) SC SCH ×4 (05:05→20:52)
[2019-06-12 06:07] LABS: BILIRUBIN,URINE NEGATIVE (NEGATIVE); CLARITY,URINE CLEAR; COLOR,URINE YELLOW; GLUCOSE, URINE (UA) 4+ (NEGATIVE); KETONES,URINE NEGATIVE (NEGATIVE); LEUKOCYTE ESTERASE ,URINE 1+ (NEGATIVE); NITRITE,URINE NEGATIVE (NEGATIVE); PH,URINE 5 (5-9); PROTEIN,URINE 3+ (NEGATIVE); UROBILINOGEN,URINE NORMAL (NORMAL)
[2019-06-12 06:29] LABS: BACTERIA,URINE FEW /HPF; GRANULAR CASTS,URINE 0-2 /LPF; WBC,URINE 0-2 /HPF
--- NOTE | 2019-06-12 06:50 | Pulmonary Consultation ---
History of Present Illness History of Present Illness Date of Consultation 06/12/19 06:45 Date of Admission Allergies and Home Medications Allergies Coded Allergies: No Known Drug Allergies (Verified , 05/02/08) Home Medications Albuterol Sulfate 18 Gm Hfa.aer.ad, 2 PUFF INH Q4H PRN for SHORTNESS OF BREATH, (Reported) Alogliptin Benzoate 12.5 Mg Tablet, 12.5 MG PO DAILY, (Reported) Amlodipine Besylate 10 Mg Tablet, 10 MG PO DAILY, (Reported) Aspirin 81 Mg Tablet.dr, 81 MG PO DAILY, (Reported) Atorvastatin Calcium 40 Mg Tablet, 40 MG PO HS, (Reported) Budesonide/Formoterol Fumarate 10.2 Gm Hfa.aer.ad, 2 PUFF IH BID, (Reported) Clopidogrel Bisulfate 75 Mg Tablet, 75 MG PO DAILY, (Reported) Gabapentin 100 Mg Capsule, 100 MG PO BID, (Reported) Glipizide 5 Mg Tablet, 7.5 MG PO DAILY, (Reported) TAKES 1 & 1/2 (5MG) TABLETS Hydrochlorothiazide 25 Mg Tablet, 12.5 MG PO DAILY, (Reported) TAKES 1/2 (25MG) TABLET Insulin Glargine,Hum.rec.anlog 100 Unit/1 Ml Insuln.pen, 10 UNITS SQ HS, (Reported) Ipratropium/Albuterol Sulfate 3 Ml Ampul.neb, 3 ML IH Q6H PRN for SHORTNESS OF BREATH, (Reported) Lisinopril 40 Mg Tablet, 20 MG PO DAILY, (Reported) TAKES 1/2 (40MG) TABLET Menthol 113 Gm Gel..gram., TP TID PRN for MUSCLE PAIN, (Reported) Metformin HCl 850 Mg Tablet, 850 MG PO BID WITH MEALS, (Reported) Metoprolol Succinate 100 Mg Tab.er.24h, 50 MG PO DAILY, (Reported) TAKES 1/2 (100MG) TABLET Naproxen 500 Mg Tablet, 500 MG PO BID PRN for PAIN-MILD, (Reported) Nicotine 1 Each Patch.td24, 21 MG TD DAILY, (Reported) Nicotine Polacrilex 2 Mg Lozenge, 2 MG BC Q1H PRN for SMOKING CESSATION, (Reported) Pantoprazole Sodium 40 Mg Tablet.dr, 40 MG PO DAILY, (Reported) Tamsulosin HCl 0.4 Mg Cap, 0.4 MG PO DAILY, (Reported) Tizanidine HCl 4 Mg Tablet, 2 MG PO BID PRN for MUSCLE SPASMS, (Reported) Past Zoplcha-Raxyls-Yrudvy Hx Patient Social History Alcohol Use: Denies Use Recreational Drug Use: No Smoking Status: Current Everyday Smoker Type Used: Cigarettes Recent Foreign Travel: No Contact w/Someone Who Travel: No Recent Infectious Disease Expo: No Recent Hopitalizations: No Immunizations Up To Date Tetanus Booster (TDap): Unknown PED Vaccines UTD: Yes Date of Pneumonia Vaccine: Jul 25, 2017 Date of Influenza Vaccine: Jul 23, 2018 Seasonal Allergies Seasonal Allergies: No Past Medical History Surgeries: Yes (CHEST TUBE INSERTION, heart cathx9 stents) Coronary Stent Respiratory: Yes COPD Currently Using CPAP: No Currently Using BIPAP: No Cardiac: Yes Coronary Artery Disease, Hypertension Neurological: No Neuropathy Reproductive Disorders: No Genitourinary: Yes Gastrointestinal: No Hepatitis, Polyps Musculoskeletal: Yes Arthritis Endocrine: Yes Diabetes, Non-Insulin dep HEENT: No (hemmoraging in back of both eyes-pt see specialist for it) Cataract Cancer: No Psychosocial: No Integumentary: No Blood Disorders: No Family Medical History Patient reports no known family medical history. No Pertinent Family Hx Sepsis Event Evaluation Height, Weight, BMI Height: 5'11.00" Weight: 216lbs. 9.0oz. 98.715649qp; 30.2 BMI Method:Stated Exam Exam Vital Signs Date Time Temp Pulse Resp B/P (MAP) Pulse Ox O2 Delivery O2 Flow Rate FiO2 06/12/19 05:05 36.0 91 18 130/70 97 Nasal Cannula 3.00 06/12/19 04:00 94 Nasal Cannula 4.00 06/12/19 02:51 95 Nasal Cannula 4.00 06/12/19 01:00 94 06/12/19 00:25 37.0 20 Nasal Cannula 4.00 06/12/19 00:02 97 136/68 98 Nasal Cannula 6.00 06/12/19 00:00 95 Nasal Cannula 4.00 06/11/19 23:18 95 Nasal Cannula 6.00 06/11/19 21:00 90 21 116/77 99 Nasal Cannula 6.00 06/11/19 21:00 97 Nasal Cannula 6.00 06/11/19 20:00 96 Nasal Cannula 6.00 06/11/19 20:00 36.9 06/11/19 20:00 89 24 137/79 98 Nasal Cannula 6.00 06/11/19 19:53 93 16 107/86 95 Nasal Cannula 6.00 06/11/19 19:40 95 Nasal Cannula 6.00 06/11/19 19:00 90 06/11/19 16:00 82 14 124/64 95 Nasal Cannula 6.00 06/11/19 16:00 36.5 06/11/19 15:36 97 Nasal Cannula 6.00 06/11/19 15:11 97 Nasal Cannula 6.00 06/11/19 15:09 97 Nasal Cannula 6.00 06/11/19 13:59 84 96 6 06/11/19 12:32 85 06/11/19 12:25 37.3 85 26 132/68 97 Nasal Cannula 6.00 06/11/19 12:22 37.0 85 28 142/76 (105) 96 OxyMask 6.00 06/11/19 10:44 96 OxyMask 11.00 06/11/19 10:25 97 OxyMask 15.00 06/11/19 10:25 37.0 85 28 152/82 (105) I & O 06/12/19 07:00 Intake Total 1670 ml Output Total 450 ml Balance 1220 ml Height & Weight Height: 5'11.00" Weight: 216lbs. 9.0oz. 98.231497ft; 30.2 BMI Method:Stated Capillary Refill: Less Than 3 Seconds Gastrointestinal: normal bowel sounds, non tender, soft Results Lab Laboratory Tests 06/11/19 10:33 06/12/19 02:45 Assessment/Plan Assessment/Plan PNA -Zosyn -henderson cultures COPDAE -D/c solumedrol secondary to hyperglycemia -start Advair, -DuoNeb Q 4 Metabolic acidosis -start LR at 100cc/hr -recheck LA -No Ketones in urine -Continue to monitor IDDM -home insulin restarted -continue to monitor CATRACHO JONES DO Jun 12, 2019 06:50
[2019-06-12] MEDS: RT-ADVAIR HFA 115/21 MCG PER PUFF IH SCH ×2 (07:52→18:57)
[2019-06-12] MEDS: NICOTINE PATCH REMOVAL TP SCH (08:00)
[2019-06-12] MEDS: LACTATED RINGERS 1,000 ML IV SCH ×2 (08:00→16:00)
[2019-06-12] MEDS: LORATADINE (CLARITIN) 10 MG TAB PO SCH (09:00)
[2019-06-12] MEDS: NICOTINE 21 MG (NICODERM) PATCH TD SCH (09:00)
[2019-06-12] MEDS: GABAPENTIN 100 MG (NEURONTIN) CAP PO SCH ×2 (09:00→20:52)
[2019-06-12] MEDS: FLUTICASONE NASAL SPRAY (FLONASE) 16 GM BTL NS SCH (09:00)
--- NOTE | 2019-06-12 10:37 | History & Physical-Hospitalist ---
History of Present Illness HPI/Chief Complaint This is a 68 -year-old white male with a history of COPD. He does have oxygen at home but he doesn't always wear it. In addition he has coronary artery disease and type II diabetes on insulin. The patient had been brought to the emergency room after presenting to Dr. Martinez's office for increased shortness of breath. He was requiring 6 L by nasal cannula and had diffuse wheezing on exam. This morning at the time my interview he is feeling much better he's on 3 L nasal cannula and satting around 94-95 percent. He was placed on high-dose Solu-Medrol and his blood sugars have been oek-ti-epxvtdr up to the 400s with an increase in lactic acid. Urine ketones were negative. The patient this morning has no specific complaints. Source: patient Exam Limitations: no limitations Date Seen 06/12/19 Time Seen by a Provider: 09:30 Attending Physician Aleida Bacon MD [facility] Referring Physician Date of Admission Jun 11, 2019 at 11:17 Home Medications & Allergies Home Medications Reviewed patient Home Medication Reconciliation performed by pharmacy medication reconciliations casting technician and/or nursing. Patients Allergies have been reviewed. Allergies Allergies Coded Allergies No Known Drug Allergies (Verified05/02/08) Past Uzwttkj-Purpiv-Wnynqe Hx Past Med/Social Hx: Reviewed Nursing Past Med/Soc Hx Patient Social History Marrital Status: Employed/Student: retired Alcohol Use: Denies Use Recreational Drug Use: No Smoking Status: Current Everyday Smoker Type Used: Cigarettes Recent Foreign Travel: No Contact w/other who traveled: No Recent Hopitalizations: No Recent Infectious Disease Expo: No Immunizations Up To Date Tetanus Booster (TDap): Unknown Pediatric: Yes Date of Pneumonia Vaccine: Jul 25, 2017 Date of Influenza Vaccine: Jul 23, 2018 Seasonal Allergies Seasonal Allergies: No Past Medical History Surgeries: Coronary Stent Respiratory: COPD Currently Using CPAP: No Currently Using BIPAP: No Cardiac: Coronary Artery Disease, Hypertension Neurological: Neuropathy Reproductive: No Gastrointestinal: Hepatitis, Polyps Musculoskeletal: Arthritis Endocrine: Diabetes, Non-Insulin dep HEENT: Cataract History of Blood Disorders: No Family History Patient reports no known family medical history. No Pertinent Family Hx Review of Systems Constitutional: see HPI EENTM: no symptoms reported Respiratory: cough, dyspnea on exertion Cardiovascular: no symptoms reported Gastrointestinal: no symptoms reported Musculoskeletal: muscle cramps Skin: no symptoms reported Psychiatric/Neurological: No Symptoms Reported Physical Exam Physical Exam Vital Signs Vital Signs - First Documented 06/11/19 06/11/19 10:25 13:59 Temp 37.0 Pulse 85 Resp 28 B/P (MAP) 152/82 (105) Pulse Ox 97 O2 Delivery OxyMask O2 Flow Rate 15.00 FiO2 6 Capillary Refill : Less Than 3 Seconds Height, Weight, BMI Height: 5'11.00" Weight: 216lbs. 9.0oz. 98.890315fz; 30.2 BMI Method:Stated General Appearance: No Apparent Distress, Chronically ill HEENT: Normal ENT Inspection, Pharynx Normal Neck: Full Range of Motion, Normal Inspection, Non Tender, Supple Respiratory: Decreased Breath Sounds, Wheezing Cardiovascular: Regular Rate, Rhythm, No Gallop Gastrointestinal: Non Tender, Soft Rectal: Deferred Back: Normal Inspection, No CVA Tenderness, No Vertebral Tenderness Extremity: Normal Capillary Refill, Non Tender, Pedal Edema Neurologic/Psychiatric: Alert, Oriented x3, No Motor/Sensory Deficits, Normal Mood/Affect Skin: Normal Color, Warm/Dry Results Results/Procedures Labs Laboratory Tests 06/11/19 10:33 06/12/19 02:45 Patient resulted labs reviewed. Imaging: Reviewed Imaging Report Assessment/Plan Admission Diagnosis Right lower lobe pneumonia on Zosyn Exacerbation of COPD secondary to number 1 COPD with continued tobaccoism counseled Coronary artery disease with history of stent placement. Type II diabetes on insulin out of control secondary to steroids. Appreciate Dr. Hoover's help. Will begin tapering off steroids increase insulin ambulate as possible and continue IV antibiotics. Admission Status: Inpatient Order (span 2 midnights) Reason for Inpatient Admission: Right lower lobe pneumonia in a patient with COPD and coronary artery disease and type II diabetes out of control. Clinical Quality Measures DVT/VTE Risk/Contraindication: Risk Factor Score Per Nursin RFS Level Per Nursing on Admit: 4+=Very High Copy Copies To 1: [facility]/ERIN ROSENTHAL MD Jun 12, 2019 10:37
[2019-06-12 12:00] VITALS: BP 161/80
[2019-06-12 16:00] VITALS: BP 167/91
[2019-06-12 20:00] VITALS: BP 170/82
[2019-06-12] MEDS: MONTELUKAST 10 MG (SINGULAIR) TAB PO SCH (20:52)
[2019-06-13] VITALS (8 sets, daily range): BP systolic 138–172; BP diastolic 71–86
[2019-06-13] MEDS: RT-ALBUTEROL/IPRATROPIUM 3 ML (DUONEB) VIAL INH SCH ×7 (00:06→22:58)
[2019-06-13] MEDS: PIPERACILLIN/TAZO 4.5 GM/NS 100 ML IV SCH ×6 (03:42→18:23)
[2019-06-13] MEDS: LACTATED RINGERS 1,000 ML IV SCH (03:43)
[2019-06-13 04:38] LABS: BASOPHILS % (AUTO) 0 % (0-10); EOSINOPHILS # (AUTO) 0.1 10^3/uL (0.0-0.3); EOSINOPHILS % (AUTO) 0 % (0-10); HEMATOCRIT 37 % (40-54); HEMOGLOBIN 11.6 G/DL (13.3-17.7); LYMPHOCYTES # (AUTO) 1.2 X 10^3 (1.0-4.0); LYMPHOCYTES % (AUTO) 6 % (12-44); MEAN CORPUSCULAR HEMOGLOBIN 27 PG (25-34); MEAN CORPUSCULAR HGB CONC 31 G/DL (32-36); MEAN CORPUSCULAR VOLUME 85 FL (80-99); MONOCYTES # (AUTO) 1.3 X 10^3 (0.0-1.0); MONOCYTES % (AUTO) 6 % (0-12); NEUTROPHILS # (AUTO) 17.1 X 10^3 (1.8-7.8); NEUTROPHILS % (AUTO) 87 % (42-75); PLATELET COUNT 319 10^3/uL (130-400); RED CELL DISTRIBUTION WIDTH 16.5 % (10.0-14.5); WHITE BLOOD COUNT 19.6 10^3/uL (4.3-11.0)
[2019-06-13 04:55] LABS: CALCIUM 9.6 MG/DL (8.5-10.1); CREATININE SERUM 1.8 MG/DL (0.60-1.30); MAGNESIUM 1.5 MG/DL (1.6-2.4); PHOSPHORUS 3.5 MG/DL (2.3-4.7); POTASSIUM 4.7 MMOL/L (3.6-5.0)
[2019-06-13] MEDS: inSUlin ASPART (NovoLOG) 1 UNIT/0.01 ML (CHARGE PER UNIT) SC SCH ×4 (05:03→21:12)
[2019-06-13] MEDS ORDERED: MAGNESIUM 1 GM/100 ML IVPB 200 ML IV ONE (05:30)
[2019-06-13] MEDS ORDERED: POTASSIUM CL 10MEQ/50ML IVPB 50 ML IV SCH (06:00)
[2019-06-13] MEDS ORDERED: KCL 20 MEQ TAB (K-DUR) PO SCH (06:00)
[2019-06-13] MEDS ORDERED: MAGNESIUM 1 GM/100 ML IVPB 100 ML IV SCH (06:00)
[2019-06-13] MEDS: CATHETER FLUSH 10 ML SYR IV SCH ×3 (06:47→22:10)
[2019-06-13] MEDS: MAGNESIUM 1 GM/100 ML IVPB 100 ML IV SCH ×2 (06:47→09:14)
[2019-06-13] MEDS: RT-ADVAIR HFA 115/21 MCG PER PUFF IH SCH ×2 (07:30→18:17)
--- NOTE | 2019-06-13 07:47 | Pulmonary Progress Note ---
Sepsis Event Evaluation Height, Weight, BMI Height: 5'11.00" Weight: 227lbs. 0.0oz. 102.505083ma; 30.2 BMI Method:Stated Focused Exam Lactate Level 06/12/19 07:54: Lactic Acid Level 2.11*H 06/12/19 10:36: Lactic Acid Level 2.16*H 06/12/19 21:16: Lactic Acid Level 1.87 Exam Exam Vital Signs Date Time Temp Pulse Resp B/P (MAP) Pulse Ox O2 Delivery O2 Flow Rate FiO2 06/13/19 07:28 98 Nasal Cannula 3.00 06/13/19 05:00 91 147/71 100 Nasal Cannula 3.00 06/13/19 04:00 97 138/79 99 Nasal Cannula 3.00 06/13/19 04:00 Nasal Cannula 4.00 06/13/19 01:00 86 06/13/19 00:06 95 Nasal Cannula 3.00 06/13/19 00:00 Nasal Cannula 4.00 06/13/19 00:00 36.4 83 19 170/86 96 Nasal Cannula 4.00 06/12/19 21:00 Nasal Cannula 4.00 06/12/19 20:00 Nasal Cannula 4.00 06/12/19 20:00 36.8 87 21 96 Nasal Cannula 3.00 06/12/19 20:00 170/82 Nasal Cannula 3.00 06/12/19 19:04 Nasal Cannula 3.00 06/12/19 19:00 83 06/12/19 18:57 95 Nasal Cannula 3.00 06/12/19 16:00 97 20 167/91 99 Nasal Cannula 3.00 06/12/19 16:00 36.2 06/12/19 16:00 95 Nasal Cannula 4.00 06/12/19 15:11 99 Nasal Cannula 3.00 06/12/19 13:00 84 06/12/19 12:00 96 Nasal Cannula 4.00 06/12/19 12:00 92 16 161/80 98 Nasal Cannula 3.00 06/12/19 12:00 36.2 06/12/19 10:58 97 Nasal Cannula 3.00 06/12/19 09:00 97 Nasal Cannula 6.00 06/12/19 08:00 102 93 Nasal Cannula 3.00 06/12/19 08:00 96 Nasal Cannula 4.00 06/12/19 07:52 96 Nasal Cannula 3.00 I & O 06/13/19 07:00 Intake Total 2460 ml Output Total 3000 ml Balance -540 ml Height & Weight Height: 5'11.00" Weight: 227lbs. 0.0oz. 102.129614tk; 30.2 BMI Method:Stated General Appearance: No Apparent Distress, Chronically ill HEENT: Normal ENT Inspection, Pharynx Normal Neck: Full Range of Motion, Normal Inspection, Non Tender, Supple Respiratory: Decreased Breath Sounds, Wheezing Cardiovascular: Regular Rate, Rhythm, No Gallop Capillary Refill: Less Than 3 Seconds Gastrointestinal: normal bowel sounds, non tender, soft Extremity: Normal Capillary Refill, Non Tender, Pedal Edema Neurologic/Psychiatric: Alert, Oriented x3, No Motor/Sensory Deficits, Normal Mood/Affect Skin: Normal Color, Warm/Dry Results Lab Laboratory Tests 06/11/19 10:33 06/12/19 02:45 06/13/19 04:22 Assessment/Plan Assessment/Plan PNA -Zosyn -henderson cultures COPDAE -D/c solumedrol secondary to hyperglycemia - Advair, -DuoNeb Q 4 IDDM -home insulin restarted -continue to monitor CATRACHO JONES DO Jun 13, 2019 07:47
[2019-06-13] MEDS ORDERED: NICOTINE 21 MG (NICODERM) PATCH TD SCH (09:00)
[2019-06-13] MEDS ORDERED: NON-FORMULARY MEDICATION 1 EA EA (Alogliptin Benzoate (Alogliptin) 12.5 MG) PO SCH (09:00)
[2019-06-13] MEDS: ASPIRIN E.C. 81 MG (ECOTRIN) TAB PO SCH (09:12)
[2019-06-13] MEDS: NICOTINE 21 MG (NICODERM) PATCH TD SCH (09:12)
[2019-06-13] MEDS: PANTOPRAZOLE 40 MG (PROTONIX) TAB PO SCH (09:12)
[2019-06-13] MEDS: CLOPIDOGREL 75 MG (PLAVIX) TABLET PO SCH (09:12)
[2019-06-13] MEDS: TAMSULOSIN 0.4 MG (FLOMAX) CAP PO SCH (09:12)
[2019-06-13] MEDS: meTOproloL SUCCINATE 50 MG (TOPROL XL) TAB PO SCH (09:12)
[2019-06-13] MEDS: amLODIPine 10 MG (NORVASC) TAB PO SCH (09:12)
[2019-06-13] MEDS: lisINopril 20 MG (PRINIVIL) TABLET PO SCH (09:13)
[2019-06-13] MEDS: LORATADINE (CLARITIN) 10 MG TAB PO SCH (09:13)
[2019-06-13] MEDS: GABAPENTIN 100 MG (NEURONTIN) CAP PO SCH ×2 (09:13→21:11)
[2019-06-13] MEDS: NICOTINE PATCH REMOVAL TP SCH (09:16)
[2019-06-13] MEDS: FLUTICASONE NASAL SPRAY (FLONASE) 16 GM BTL NS SCH (09:21)
--- NOTE | 2019-06-13 11:01 | Progress Note - Hospitalist ---
Subjective HPI/CC On Admission Date Seen by Provider: Jun 13, 2019 Time Seen by Provider: 09:30 This is a 68 -year-old white male with a history of COPD. He does have oxygen at home but he doesn't always wear it. In addition he has coronary artery disease and type II diabetes on insulin. The patient had been brought to the emergency room after presenting to Dr. Martinez's office for increased shortness of breath. He was requiring 6 L by nasal cannula and had diffuse wheezing on exam. This morning at the time my interview he is feeling much better he's on 3 L nasal cannula and satting around 94-95 percent. He was placed on high-dose Solu-Medrol and his blood sugars have been [id number] up to the 400s with an increase in lactic acid. Urine ketones were negative. The patient this morning has no specific complaints. Subjective/Events-last exam The patient is lying on his right side down trying to get some sleep this morning. He complains of having been kept up all night by the nurses. His white count is slightly up today. Oxygen requirements are down to 3 L. He is off IV steroids and his blood sugars are much improved. Review of Systems Neurological: Weakness Focused Exam Lactate Level 06/12/19 07:54: Lactic Acid Level 2.11*H 06/12/19 10:36: Lactic Acid Level 2.16*H 06/12/19 21:16: Lactic Acid Level 1.87 Objective Exam Vital Signs Vital Signs Date Time Temp Pulse Resp B/P (MAP) Pulse Ox O2 Delivery O2 Flow Rate FiO2 06/13/19 10:12 94 Nasal Cannula 3.00 06/13/19 08:30 36.5 88 18 164/77 06/11/19 13:59 6 Capillary Refill : Less Than 3 Seconds General Appearance: No Apparent Distress, WD/WN Neck: Non Tender, Supple Respiratory: Chest Non Tender, Lungs Clear, Normal Breath Sounds, No Accessory Muscle Use, No Respiratory Distress Cardiovascular: Regular Rate, Rhythm, No Gallop, No JVD, Extra Beats, Other (frequent PVCs) Gastrointestinal: No Organomegaly, Non Tender, Soft Rectal: Deferred Extremity: Normal Capillary Refill, Normal Inspection, Normal Range of Motion, Non Tender Results/Procedures Lab Laboratory Tests 06/13/19 04:22 Patient resulted labs reviewed. Imaging: Reviewed Imaging Report Assessment/Plan Assessment and Plan Assess & Plan/Chief Complaint Right lower lobe pneumonia on Zosyn-day number 3-we will recheck a chest x-ray PA and lateral today probable transfer to the floor Exacerbation of COPD secondary to number 1 COPD with continued tobaccoism counseled-patient is having increased PVCs today but his magnesium is low and this will be replaced-we will transfer on telemetry Coronary artery disease with history of stent placement. Type II diabetes on insulin out of control secondary to steroids-improving Renal failure-nonoliguric, with proteinuria, with a creatinine of 1.8 Clinical Quality Measures DVT/VTE Risk/Contraindication: Risk Factor Score Per Nursin RFS Level Per Nursing on Admit: 4+=Very High ERIN HAMLIN MD Jun 13, 2019 11:01
[2019-06-13] MEDS ORDERED: ALPRAZolam 0.25 MG (XANAX) TAB PO ONE (11:15)
--- NOTE | 2019-06-13 16:28 | Diagnostic Imaging Report ---
PATIENT HISTORY: Shortness of air, leukocytosis. TECHNIQUE: Two views of the chest. COMPARISON: 06/11/2019. FINDINGS: There is chronic scarring in the right lung with elevation of the right hemidiaphragm. Cavitary lesion in the right lung apex is again seen, with scarring at the right lung apex. There is persistent patchy airspace opacity at the right lung base, and diffuse interstitial opacities. There is mild cardiomegaly. IMPRESSION: 1. Chronic findings in the right lung with additional stable right basilar airspace opacity, may represent pneumonia in the appropriate clinical setting. 2. Diffuse interstitial opacities, may be due to interstitial edema. Dictated by: Dictated on workstation # [id number]
[2019-06-13] MEDS: MONTELUKAST 10 MG (SINGULAIR) TAB PO SCH (21:11)
[2019-06-14] VITALS: BP 154/70
[2019-06-14] MEDS: RT-ALBUTEROL/IPRATROPIUM 3 ML (DUONEB) VIAL INH SCH ×2 (02:25→07:35)
[2019-06-14] MEDS: PIPERACILLIN/TAZO 4.5 GM/NS 100 ML IV SCH ×2 (03:00)
[2019-06-14 04:00] VITALS: BP 147/66
[2019-06-14 05:54] LABS: BASOPHILS % (AUTO) 0 % (0-10); EOSINOPHILS # (AUTO) 0.2 10^3/uL (0.0-0.3); EOSINOPHILS % (AUTO) 2 % (0-10); HEMATOCRIT 33 % (40-54); HEMOGLOBIN 10.4 G/DL (13.3-17.7); LYMPHOCYTES # (AUTO) 1.2 X 10^3 (1.0-4.0); LYMPHOCYTES % (AUTO) 11 % (12-44); MEAN CORPUSCULAR HEMOGLOBIN 27 PG (25-34); MEAN CORPUSCULAR HGB CONC 31 G/DL (32-36); MEAN CORPUSCULAR VOLUME 85 FL (80-99); MEAN PLATELET VOLUME 11.2 FL (7.4-10.4); MONOCYTES # (AUTO) 1.2 X 10^3 (0.0-1.0); MONOCYTES % (AUTO) 10 % (0-12); NEUTROPHILS # (AUTO) 8.8 X 10^3 (1.8-7.8); NEUTROPHILS % (AUTO) 77 % (42-75); PLATELET COUNT 284 10^3/uL (130-400); RED CELL DISTRIBUTION WIDTH 16.7 % (10.0-14.5); WHITE BLOOD COUNT 11.4 10^3/uL (4.3-11.0)
[2019-06-14 06:19] LABS: CALCIUM 9.3 MG/DL (8.5-10.1); CREATININE SERUM 1.6 MG/DL (0.60-1.30); MAGNESIUM 1.6 MG/DL (1.6-2.4); POTASSIUM 4.5 MMOL/L (3.6-5.0)
[2019-06-14] MEDS: inSUlin ASPART (NovoLOG) 1 UNIT/0.01 ML (CHARGE PER UNIT) SC SCH (06:42)
[2019-06-14] MEDS: CATHETER FLUSH 10 ML SYR IV SCH (06:42)
[2019-06-14] MEDS: RT-ADVAIR HFA 115/21 MCG PER PUFF IH SCH (07:37)
[2019-06-14 08:00] VITALS: BP 144/70
[2019-06-14] MEDS: TAMSULOSIN 0.4 MG (FLOMAX) CAP PO SCH (08:59)
[2019-06-14] MEDS: amLODIPine 10 MG (NORVASC) TAB PO SCH (08:59)
[2019-06-14] MEDS: NICOTINE 21 MG (NICODERM) PATCH TD SCH (08:59)
[2019-06-14] MEDS: PANTOPRAZOLE 40 MG (PROTONIX) TAB PO SCH (08:59)
[2019-06-14] MEDS: NICOTINE PATCH REMOVAL TP SCH (08:59)
[2019-06-14] MEDS: CLOPIDOGREL 75 MG (PLAVIX) TABLET PO SCH (08:59)
[2019-06-14] MEDS: LORATADINE (CLARITIN) 10 MG TAB PO SCH (08:59)
[2019-06-14] MEDS: lisINopril 20 MG (PRINIVIL) TABLET PO SCH (08:59)
[2019-06-14] MEDS: meTOproloL SUCCINATE 50 MG (TOPROL XL) TAB PO SCH (08:59)
[2019-06-14] MEDS: GABAPENTIN 100 MG (NEURONTIN) CAP PO SCH (08:59)
[2019-06-14] MEDS: ASPIRIN E.C. 81 MG (ECOTRIN) TAB PO SCH (08:59)
[2019-06-14] MEDS: FLUTICASONE NASAL SPRAY (FLONASE) 16 GM BTL NS SCH (09:00)
--- NOTE | 2019-06-14 09:33 | Pulmonary Progress Note ---
Subjective Date Seen by a Provider: Jun 14, 2019 Time Seen by a Provider: 09:28 Subjective/Events-last exam Patient says that he is feeling better at 2L nasal canula. He says that he is on 2L at home PRN ROS: admits : headache, SOB and SOB on exertion denies: Fever, chills, nausea, vomiting, stomach pain, chest pain, cough, numbness and tingling Sepsis Event Evaluation Height, Weight, BMI Height: 5'11.00" Weight: 227lbs. 0.0oz. [id number]; 30.2 BMI Method:Stated Focused Exam Lactate Level 06/12/19 07:54: Lactic Acid Level 2.11*H 06/12/19 10:36: Lactic Acid Level 2.16*H 06/12/19 21:16: Lactic Acid Level 1.87 Exam Exam Vital Signs Date Time Temp Pulse Resp B/P (MAP) Pulse Ox O2 Delivery O2 Flow Rate FiO2 06/14/19 07:35 95 Nasal Cannula 3.00 06/14/19 07:00 91 06/14/19 04:00 36.1 81 18 147/66 95 Nasal Cannula 3.00 06/14/19 04:00 Nasal Cannula 4.00 06/14/19 02:26 92 Nasal Cannula 4.00 06/14/19 01:00 82 06/14/19 00:00 36.6 84 22 154/70 95 Nasal Cannula 3.00 06/14/19 00:00 Nasal Cannula 4.00 06/13/19 22:59 91 Nasal Cannula 4.00 06/13/19 21:00 Nasal Cannula 4.00 06/13/19 20:52 94 Nasal Cannula 4.00 06/13/19 20:14 36.6 88 20 149/79 95 Nasal Cannula 3.00 06/13/19 20:00 Nasal Cannula 4.00 06/13/19 19:00 83 06/13/19 18:24 36.8 82 20 144/73 96 Nasal Cannula 3.00 06/13/19 18:17 Nasal Cannula 3.00 06/13/19 16:00 Nasal Cannula 3.00 06/13/19 15:45 36.6 58 14 162/71 95 Nasal Cannula 3.00 06/13/19 15:02 94 Nasal Cannula 3.00 06/13/19 13:00 91 06/13/19 12:00 Nasal Cannula 4.00 06/13/19 11:30 36.5 90 16 172/85 97 Nasal Cannula 3.00 06/13/19 10:12 94 Nasal Cannula 3.00 I & O 06/14/19 07:00 Intake Total 2920 ml Output Total 2925 ml Balance -5 ml Height & Weight Height: 5'11.00" Weight: 227lbs. 0.0oz. 102.390057uk; 30.2 BMI Method:Stated General Appearance: No Apparent Distress, WD/WN, Obese HEENT: Normal ENT Inspection, Pharynx Normal Neck: Non Tender, Supple Respiratory: Chest Non Tender, Lungs Clear, No Accessory Muscle Use, No Respiratory Distress, Wheezing Cardiovascular: Regular Rate, Rhythm, No Gallop, No JVD, Extra Beats, Other (frequent PVCs) Capillary Refill: Less Than 3 Seconds Peripheral Pulses: 2+ Femoral (L), 2+ Left Dors-Pedis (L), 2+ Radial Pulses (R), 2+ Radial Pulses (L) Gastrointestinal: normal bowel sounds, non tender, soft Extremity: Normal Capillary Refill, Normal Inspection, Normal Range of Motion, Non Tender, Pedal Edema Neurologic/Psychiatric: Alert, Oriented x3, No Motor/Sensory Deficits, Normal Mood/Affect Skin: Normal Color, Warm/Dry Results Lab Laboratory Tests 06/13/19 04:22 06/14/19 05:25 Assessment/Plan Assessment/Plan PNA -Zosyn -henderson cultures COPD -D/c solumedrol secondary to hyperglycemia -start Advair, -DuoNeb Q 4 Metabolic acidosis -start LR at 100cc/hr -recheck LA -No Ketones in urine -Continue to monitor proteinuira with BUN:Cr >20 - IDDM -home insulin restarted -continue to monitor CHF CAD PVD HTN PRAVEEN LO,MED STUDENT Jun 14, 2019 09:33
[2019-06-14] MEDS ORDERED: FLUT16SP22 NS (10:05)
[2019-06-14] MEDS ORDERED: MONT10TA24 PO (10:05)
[2019-06-14] MEDS ORDERED: LORA10TA7 PO (10:05)
[2019-06-14] MEDS ORDERED: CEFD300C3 PO (10:06)
--- NOTE | 2019-06-14 11:22 | Discharge Summary ---
[facility] 06/14/19 1119: Discharge Summary Hospital Course Was the Problem List Reviewed?: Yes Hospital Course Date of Admission: Jun 11, 2019 at 11:17 Admission Diagnosis : Family Physician/Provider: Jasmin Bland Aprn Date of Discharge: 06/14/19 Discharge Diagnosis: [ ] Hospital Course: [ ]Mr. Dias is a 69 yo WM who presented to the ER with COPD exacerbation and pneumonial hypoxia. His pneumonia was treated with Zosyn as well as receiving breathing treatments. Patients O2 requirements have returned to baseline, at 2L. Patient has been receiving insulin to correct blood sugars, a effect of the steroids he is on. Patient is now appearing well and fit to leave. Labs and Pending Lab Test: Laboratory Tests 06/13/19 12:44: Glucometer 209H 06/13/19 15:55: Glucometer 123H 06/13/19 20:36: Glucometer 181H 06/14/19 05:25: White Blood Count 11.4H, Red Blood Count 3.90L, Hemoglobin 10.4L, Hematocrit 33L , Mean Corpuscular Volume 85, Mean Corpuscular Hemoglobin 27, Mean Corpuscular Hemoglobin Concent 31L, Red Cell Distribution Width 16.7H, Platelet Count 284, Mean Platelet Volume 11.2H, Neutrophils (%) (Auto) 77H, Lymphocytes (%) (Auto) 11L, Monocytes (%) (Auto) 10, Eosinophils (%) (Auto) 2, Basophils (%) (Auto) 0, Neutrophils # (Auto) 8.8H, Lymphocytes # (Auto) 1.2, Monocytes # (Auto) 1.2H, Eosinophils # (Auto) 0.2, Basophils # (Auto) 0.0, Sodium Level 140, Potassium Level 4.5, Chloride Level 105, Carbon Dioxide Level 25, Anion Gap 10, Blood Urea Nitrogen 36H, Creatinine 1.60H, Estimat Glomerular Filtration Rate 43, BUN/Creatinine Ratio 23, Glucose Level 198H, Calcium Level 9.3, Magnesium Level 1.6 Microbiology 06/11/19 Blood Culture - Preliminary, Resulted No growth Home Meds Active Cefdinir 300 Mg Capsule 300 Mg PO BID Fluticasone Propionate 16 Gm [place].susp 0 [place] NS DAILY Montelukast Sodium 10 Mg Tablet 10 Mg PO HS Loratadine 10 Mg Tablet 10 Mg PO DAILY Reported Metoprolol Succinate 100 Mg Tab.er.24h 50 Mg PO DAILY TAKES 1/2 (100MG) TABLET Nicotine Patch (Nicotine) 1 Each Patch.td24 21 Mg TD DAILY Iprat-Albut 0.5-3(2.5) mg/3 ml (Ipratropium/Albuterol Sulfate) 3 Ml Ampul.neb 3 Ml IH Q6H PRN Metformin HCl 850 Mg Tablet 850 Mg PO BID WITH MEALS Ventolin Hfa (Albuterol Sulfate) 18 Gm Hfa.aer.ad 2 Puff INH Q4H PRN [place] (Menthol) 113 Gm Gel..gram. TP TID PRN Tizanidine HCl 4 Mg Tablet 2 Mg PO BID PRN Nicotine Lozenge (Nicotine Polacrilex) 2 Mg Lozenge 2 Mg BC Q1H PRN Naproxen 500 Mg Tablet 500 Mg PO BID PRN Glipizide 5 Mg Tablet 7.5 Mg PO DAILY TAKES 1 & 1/2 (5MG) TABLETS Symbicort 160-4.5 Mcg Inhaler (Budesonide/Formoterol Fumarate) 10.2 Gm Hfa.aer.ad 2 Puff IH BID Flomax (Tamsulosin HCl) 0.4 Mg Cap 0.4 Mg PO DAILY Alogliptin (Alogliptin Benzoate) 12.5 Mg Tablet 12.5 Mg PO DAILY Lipitor (Atorvastatin Calcium) 40 Mg Tablet 40 Mg PO HS Amlodipine Besylate 10 Mg Tablet 10 Mg PO DAILY Lantus Solostar (Insulin Glargine,Hum.rec.anlog) 100 Unit/1 Ml Insuln.pen 10 Units SQ HS Hydrochlorothiazide 25 Mg Tablet 12.5 Mg PO DAILY TAKES 1/2 (25MG) TABLET Lisinopril 40 Mg Tablet 20 Mg PO DAILY TAKES 1/2 (40MG) TABLET Aspirin EC (Aspirin) 81 Mg Tablet. 81 Mg PO DAILY Clopidogrel (Clopidogrel Bisulfate) 75 Mg Tablet 75 Mg PO DAILY Pantoprazole Sodium 40 Mg Tablet. 40 Mg PO DAILY Gabapentin 100 Mg Capsule 100 Mg PO BID Assessment/Pt Instructions Assessment: 1. COPD exacerbation and pneumonia 2. Maintenance of Basal Sugar Levels 3. Smoking cessation discussion 1. Continue to wear O2 nasal canula at home with breathing treatments as needed. 2. Hold metformin due to high Creatinine. 3. Family is heavily pushing for cessation of tobacco products. Discharge Planning: >30 minutes discharge planning Discharge Instructions Discharge Diet: No Restrictions, Regular Diet Activity as Tolerated: Yes Pneumonia Vaccine Order Indica: Yes Discharge Physical Examination Vital Signs Vital Signs Date Time Temp Pulse Resp B/P (MAP) Pulse Ox O2 Delivery O2 Flow Rate FiO2 06/14/19 09:00 Nasal Cannula 2.00 06/14/19 08:00 36.4 78 18 144/70 94 06/11/19 13:59 6 General Appearance: No Apparent Distress, WD/WN HEENT: PERRL/EOMI, Normal ENT Inspection, Moist Mucous Membranes Respiratory: Chest Non Tender, Lungs Clear, No Respiratory Distress, Expiration, Wheezing Cardiovascular: Regular Rate, Rhythm, No Gallop, No JVD, Normal Peripheral Pulses Gastrointestinal: Normal Bowel Sounds, No Pulsatile Mass, Non Tender, Soft Extremity: Normal Capillary Refill, Pedal Edema Skin: Normal Color, Warm/Dry Neurologic/Psychiatric: Alert, Oriented x3, No Motor/Sensory Deficits, Normal Mood/Affect, planning management it specialist II-XII Norm as Tested Allergies: Coded Allergies: No Known Drug Allergies (Verified , 05/02/08) Discharge Summary Date of Admission Jun 11, 2019 at 11:17 Date of Discharge Discharge Date: Jun 14, 2019 Admission Diagnosis Right lower lobe pneumonia on Zosyn Exacerbation of COPD secondary to number 1 COPD with continued tobaccoism counseled Coronary artery disease with history of stent placement. Type II diabetes on insulin out of control secondary to steroids. Appreciate Dr. Hoover's help. Will begin tapering off steroids increase insulin ambulate as possible and continue IV antibiotics. Clinical Quality Measures DVT/VTE Risk/Contraindication: Risk Factor Score Per Nursin RFS Level Per Nursing on Admit: 4+=Very High MARY MCDUFFIE DO 06/14/19 2138: Discharge Summary Hospital Course Hospital Course Hospital Course: Pt had an uneventful hospital course for 3 days. He was admitted for COPD with hypoxia along with pneumonia placed on Zosyn, provided nebulizer treatments an oxygen supplementation. He was in need of maintaining oxygen supplementation 21/04 of which he really wasn't compliant with that at home. Overall he was able to recover well and all home medications were restarted at [place] and overall he felt good enough to be DC in improved condition wit close follow up at [facility] within one week. Pharmacy [facility], received all medications at [place]. Discharge Planning: <30 minutes discharge planning Discharge Physical Examination Allergies: Coded Allergies: No Known Drug Allergies (Verified , 05/02/08) Supervisory-Addendum Brief Verification & Attestation Participated in pt care: history, MDM, physical Personally performed: exam, history, MDM, supervision of care Care discussed with: Medical Student Procedures: n/a Results interpretation: Verified all documentation Verification and Attestation of Medical Student E/M Service A medical student performed and documented this service in my presence. I reviewed and verified all information documented by the medical student and made modifications to such information, when appropriate. I personally performed the physical exam and medical decision making. Mary Mcduffie, Jun 14, 2019,21:37 [facility] Jun 14, 2019 11:19 MARY MCDUFFIE DO Jun 14, 2019 21:38
== END 2019-06-14 12:27 | disposition home or self-care (01) | DRG 190 ==
LOC: EDUNIT# 10:26 → ER 10:27 → ICU 11:17 → 4TH 06-13 17:33
PROVIDERS: ADMIT Family Medicine; ATTEND Family Medicine
DX: J44.1 Chronic obstructive pulmonary disease with (acute) exacerbation (principal); J18.9 Pneumonia, unspecified organism; J44.0 Chronic obstructive pulmonary disease with (acute) lower respiratory infection; E87.2 Acidosis; I25.10 Atherosclerotic heart disease of native coronary artery without angina pectoris; E11.40 Type 2 diabetes mellitus with diabetic neuropathy, unspecified; E11.65 Type 2 diabetes mellitus with hyperglycemia; T49.0X5A Adverse effect of local antifungal, anti-infective and anti-inflammatory drugs, initial encounter; F17.210 Nicotine dependence, cigarettes, uncomplicated; I11.0 Hypertensive heart disease with heart failure; I50.9 Heart failure, unspecified; N19 Unspecified kidney failure; R80.9 Proteinuria, unspecified; M19.91 Primary osteoarthritis, unspecified site; I73.9 Peripheral vascular disease, unspecified; H57.89 Other specified disorders of eye and adnexa; Z99.81 Dependence on supplemental oxygen; Z79.4 Long term (current) use of insulin; Z95.5 Presence of coronary angioplasty implant and graft; Z86.19 Personal history of other infectious and parasitic diseases
CPT/HCPCS: 36415; 71045; 71046; 80048; 80053; 81000; 82550; 82553; 82805; 82962; 83605; 83735; 83880; 84100; 84484; 85007; 85025; 85027; 85610; 85730; 87040; 93005; 93041; 94640; 94664; 94760; 96374

== ENCOUNTER → 2019-06-21 | Outpatient (CLI) | payer MEDICARE, OTHER ==
[~2019-06-21] MED LIST changes: +ALBU18HF2 INH; +CEFD300C3 PO; +FLUT16SP22 NS; +GLIP5TAB13 PO; +IPRA3AMP31 IH; +LORA10TA7 PO; +MENT113G5 TP; +METO-395 PO; +MONT10TA24 PO; +NAPR-915 PO; +NICO-533 TD; +NICO-588 TD; +NICO-627 BC; +TIZA4TAB4 PO; -methylPREDNISolone 125 MG (Solu-MEDROL) VIAL ONE
--- NOTE | 2019-06-21 11:08 | Diagnostic Imaging Report ---
INDICATION: Fall with right anterior rib pain. Time of exam: 10:48 AM Correlation is made with prior chest from 06/13/2019. Heart size is stable. Volume loss at the right hemithorax and elevation of the right hemidiaphragm is similar to prior exam. Chronic parenchymal opacities in the right upper and right lower lung field appear to be fairly stable. There are basilar interstitial changes bilaterally. Left mid and upper lung field remains clear. No significant effusion is seen. There is no pneumothorax. There is chronic pleural thickening in the right apex. No definite displaced rib fracture is seen. IMPRESSION: Chronic changes, stable when compared to examination from 06/13/2019. No new abnormality is identified. Dictated by: Dictated on workstation # [id number]
== END ==
LOC: RAD 10:37
DX: R07.81 Pleurodynia (principal); W19.XXXA Unspecified fall, initial encounter
CPT/HCPCS: 71046

== ENCOUNTER → 2020-04-10 | Outpatient (CLI) | payer MEDICARE, OTHER ==
[~2020-04-10] MED LIST changes: +GLIM4TAB5 PO; -METO-370 PO; -METO-387 PO; -METO-395 PO; -MONT10TA24 PO; +MONT10TA26 PO; +MTP100TCR PO; +MTP25TSR PO; -TAMS0.4C98 PO; +TMSL.4C PO
[2020-04-10 11:51] LABS: ALBUMIN 3.5 GM/DL (3.2-4.5); BILIRUBIN,TOTAL 0.4 MG/DL (0.1-1.0); CALCIUM 9.2 MG/DL (8.5-10.1); CREATININE SERUM 1.31 MG/DL (0.60-1.30); POTASSIUM 4.3 MMOL/L (3.6-5.0)
== END ==
LOC: CARD 11:05
PROVIDERS: ATTEND Internal Medicine Cardiovascular Disease
DX: I25.10 Atherosclerotic heart disease of native coronary artery without angina pectoris (principal); E11.9 Type 2 diabetes mellitus without complications; E66.9 Obesity, unspecified; I11.9 Hypertensive heart disease without heart failure
CPT/HCPCS: 36415; 80053; 80061; 93306

== ENCOUNTER → 2020-05-08 | Outpatient (CLI) | payer MEDICARE ==
[2020-05-08 13:17] LABS: BASOPHILS % (AUTO) 0 % (0-10); EOSINOPHILS # (AUTO) 0.3 10^3/uL (0.0-0.3); EOSINOPHILS % (AUTO) 2 % (0-10); HEMATOCRIT 36 % (40-54); HEMOGLOBIN 11.8 G/DL (13.3-17.7); LYMPHOCYTES # (AUTO) 1.5 X 10^3 (1.0-4.0); LYMPHOCYTES % (AUTO) 11 % (12-44); MEAN CORPUSCULAR HEMOGLOBIN 29 PG (25-34); MEAN CORPUSCULAR HGB CONC 33 G/DL (32-36); MEAN CORPUSCULAR VOLUME 89 FL (80-99); MEAN PLATELET VOLUME 10.5 FL (7.4-10.4); MONOCYTES % (AUTO) 7 % (0-12); NEUTROPHILS # (AUTO) 10.8 X 10^3 (1.8-7.8); NEUTROPHILS % (AUTO) 80 % (42-75); PLATELET COUNT 249 10^3/uL (130-400); RED CELL DISTRIBUTION WIDTH 13.9 % (10.0-14.5); WHITE BLOOD COUNT 13.6 10^3/uL (4.3-11.0)
[2020-05-08 14:36] LABS: BILIRUBIN,URINE NEGATIVE (NEGATIVE); CLARITY,URINE CLEAR; COLOR,URINE YELLOW; GLUCOSE, URINE (UA) 2+ (NEGATIVE); KETONES,URINE NEGATIVE (NEGATIVE); LEUKOCYTE ESTERASE ,URINE NEGATIVE (NEGATIVE); NITRITE,URINE NEGATIVE (NEGATIVE); PROTEIN,URINE 3+ (NEGATIVE)
[2020-05-08 14:43] LABS: BACTERIA,URINE NEGATIVE /HPF; WBC,URINE RARE /HPF
== END ==
LOC: LAB 13:00
PROVIDERS: ATTEND Thoracic Surgery (Cardiothoracic Vascular Surgery)
DX: Z01.810 Encounter for preprocedural cardiovascular examination (principal); Z01.818 Encounter for other preprocedural examination; I70.213 Atherosclerosis of native arteries of extremities with intermittent claudication, bilateral legs; N39.0 Urinary tract infection, site not specified
CPT/HCPCS: 36415; 81000; 85025

== ENCOUNTER → 2020-05-15 | Outpatient (CLI) | payer MEDICARE ==
[2020-05-15 14:52] LABS: ALBUMIN 3.1 GM/DL (3.2-4.5)
[2020-05-15 14:53] LABS: POTASSIUM 4.7 MMOL/L (3.6-5.0)
[2020-05-15 14:54] LABS: CALCIUM 8.7 MG/DL (8.5-10.1)
[2020-05-15 14:58] LABS: CREATININE SERUM 1.24 MG/DL (0.60-1.30); PHOSPHORUS 2.8 MG/DL (2.3-4.7)
== END ==
LOC: LAB 14:26
PROVIDERS: ATTEND Thoracic Surgery (Cardiothoracic Vascular Surgery)
DX: N18.3 Chronic kidney disease, stage 3 (moderate) (principal)
CPT/HCPCS: 36415; 80069

== ENCOUNTER 2021-01-18 21:49 | Observation (INO) | payer MEDICARE ==
[~2021-01-18] VITALS: Ht 180.4 cm; Wt 93.2 kg
[~2021-01-18 21:49] MED LIST changes: +AMLO-251 PO; -AMLO10TA7 PO; +ASPI-1238 PO; -ASPI-983 PO; -LISI-552 PO; +LISI20TA26 PO; -LISI40TA PO; +LISI40TA9 PO; -MONT10TA26 PO; +MONT10TA32 PO; -NICO-588 TD; +NICO-685 TD; -PANT40TA3 PO; +PANT40TA52 PO
[2021-01-18] MEDS ORDERED: ASPIRIN 81 MG CHEW (CHILDREN'S ASA) PO ONE (22:00)
--- NOTE | 2021-01-18 22:00 | ED Chest Pain ---
General Chief Complaint: Chest Pain Stated Complaint: CHEST PAIN / SOB Source: patient Exam Limitations: no limitations History of Present Illness Date Seen by Provider: Jan 18, 2021 Time Seen by Provider: 21:47 Initial Comments Patient to the ER by private conveyance from home with chief complaint of Chest pain starting about 2:00 this afternoon. He took a nitroglycerin which helped some. He has a significant history of coronary disease. No more cough than usual. Has a history of emphysema. History of hypertension diabetes on insulin and smokes about half a pack to a pack a day. Follows with Dr. Pizarro and the [place] for primary care. Cardiac catheterization by Dr. Pizarro 2019 with multiple stents in the LAD, circumflex and right coronary artery with mild to moderate in-stent restenosis nonobstructive disease. Severe stenosis of the first diagonal branch and the right PDA but fairly small arteries medical therapy recommended. Echocardiogram [address] Pizarro demonstrating EF of 50 to 55% with wall thickness mild to moderately increased and grade 1 diastolic dysfunction. Allergies and Home Medications Allergies Coded Allergies: No Known Drug Allergies (Verified , 05/02/08) Home Medications Albuterol Sulfate 18 Gm Hfa.aer.ad, 2 PUFF INH Q4H PRN for SHORTNESS OF BREATH, (Reported) Alogliptin Benzoate 12.5 Mg Tablet, 12.5 MG PO DAILY, (Reported) Amlodipine Besylate 10 Mg Tablet, 10 MG PO DAILY, (Reported) Aspirin 81 Mg Tablet.dr, 81 MG PO DAILY, (Reported) Atorvastatin Calcium 40 Mg Tablet, 40 MG PO HS, (Reported) Budesonide/Formoterol Fumarate 10.2 Gm Hfa.aer.ad, 2 PUFF IH BID, (Reported) Cefdinir 300 Mg Capsule, 300 MG PO BID Prescribed by: MARY MCDUFFIE on 06/14/19 1006 Clopidogrel Bisulfate 75 Mg Tablet, 75 MG PO DAILY, (Reported) Fluticasone Propionate 16 Gm [place].susp, 0 SPRAY NS DAILY Prescribed by: MARY MCDUFFIE on 06/14/19 1005 Gabapentin 100 Mg Capsule, 100 MG PO BID, (Reported) Glipizide 5 Mg Tablet, 7.5 MG PO DAILY, (Reported) TAKES 1 & 1/2 (5MG) TABLETS Insulin Glargine,Hum.rec.anlog 100 Unit/1 Ml Insuln.pen, 10 UNITS SQ HS, (Reported) Ipratropium/Albuterol Sulfate 3 Ml Ampul.neb, 3 ML IH Q6H PRN for SHORTNESS OF BREATH, (Reported) Lisinopril 40 Mg Tablet, 20 MG PO DAILY, (Reported) TAKES 1/2 (40MG) TABLET Loratadine 10 Mg Tablet, 10 MG PO DAILY Prescribed by: MARY MCDUFFIE on 06/14/19 1005 Menthol 113 Gm Gel..gram., TP TID PRN for MUSCLE PAIN, (Reported) Metoprolol Succinate 100 Mg Tab.er.24h, 50 MG PO DAILY, (Reported) TAKES 1/2 (100MG) TABLET Montelukast Sodium 10 Mg Tablet, 10 MG PO HS Prescribed by: MARY MCDUFFIE on 06/14/19 1005 Naproxen 500 Mg Tablet, 500 MG PO BID PRN for PAIN-MILD, (Reported) Nicotine 1 Each Patch.td24, 21 MG TD DAILY, (Reported) Nicotine Polacrilex 2 Mg Lozenge, 2 MG BC Q1H PRN for SMOKING CESSATION, (Reported) Pantoprazole Sodium 40 Mg Tablet.dr, 40 MG PO DAILY, (Reported) Tamsulosin HCl 0.4 Mg Cap, 0.4 MG PO DAILY, (Reported) Tizanidine HCl 4 Mg Tablet, 2 MG PO BID PRN for MUSCLE SPASMS, (Reported) Patient Home Medication List Home Medication List Reviewed: Yes Review of Systems Review of Systems Constitutional: No chills, No diaphoresis EENTM: No Blurred Vision, No Double Vision Respiratory: Denies Cough, Denies Shortness of Air Cardiovascular: See HPI, Chest Pain, Edema (Baseline); Denies Irregular Heart Rate, Denies Lightheadedness Gastrointestinal: Denies Abdominal Pain, Denies Constipated, Denies Diarrhea; Nausea Genitourinary: Denies Burning, Denies Discharge Musculoskeletal: No back pain, No joint pain Skin: No pruritus, No rash Psychiatric/Neurological: Denies Headache, Denies Numbness All Other Systems Reviewed Negative Unless Noted: Yes Past Hnmsdxw-Bouhjs-Vlvphn Hx Patient Social History Alcohol Use: Denies Use Drug of Choice: Occasional cannabis Smoking Status: Current Everyday Smoker Type Used: Cigarettes (Pack per day) Recent Hopitalizations: No Immunizations Up To Date Tetanus Booster (TDap): Unknown PED Vaccines UTD: Yes Date of Pneumonia Vaccine: Jul 25, 2017 Date of Influenza Vaccine: Jul 23, 2018 Seasonal Allergies Seasonal Allergies: No Past Medical History Surgeries: Yes (CHEST TUBE INSERTION, heart cathx9 stents) Coronary Stent Respiratory: Yes COPD Currently Using CPAP: No Currently Using BIPAP: No Cardiac: Yes Coronary Artery Disease, Hypertension Neurological: No Neuropathy Reproductive Disorders: No Genitourinary: Yes Gastrointestinal: No Hepatitis, Polyps Musculoskeletal: Yes Arthritis Endocrine: Yes Diabetes, Non-Insulin dep HEENT: No (hemmoraging in back of both eyes-pt see specialist for it) Cataract Cancer: No Psychosocial: No Integumentary: No Blood Disorders: No Family Medical History Patient reports no known family medical history. No Pertinent Family Hx Physical Exam Vital Signs Capillary Refill : Height, Weight, BMI Height: 5'11.00" Weight: 225lbs. 0.0oz. 102.320699sp; 30.2 BMI Method:Stated General Appearance: WD/WN, Moderate Distress HEENT: PERRL/EOMI, Pharynx Normal, Moist Mucous Membranes Neck: Full Range of Motion, Normal Inspection Respiratory: Chest Non Tender, Lungs Clear, Normal Breath Sounds, No Accessory Muscle Use, No Respiratory Distress Cardiovascular: Regular Rate, Rhythm, No Edema, Normal Peripheral Pulses Gastrointestinal: Normal Bowel Sounds, No Organomegaly Extremity: Normal Capillary Refill, Pedal Edema (1+ bilateral symmetric) Neurologic/Psychiatric: Alert, Oriented x3, No Motor/Sensory Deficits Skin: Normal Color, Warm/Dry Progress/Results/Core Measures Results/Orders Lab Results Laboratory Tests Test 01/18/21 21:50 Range/Units White Blood Count 13.6 H 4.3-11.0 10^3/uL Red Blood Count 4.60 4.30-5.52 10^6/uL Hemoglobin 13.1 L 13.3-17.7 g/dL Hematocrit 42 40-54 % Mean Corpuscular Volume 91 80-99 fL Mean Corpuscular Hemoglobin 29 25-34 pg Mean Corpuscular Hemoglobin Concent 31 L 32-36 g/dL Red Cell Distribution Width 14.6 H 10.0-14.5 % Platelet Count 265 130-400 10^3/uL Mean Platelet Volume 10.8 9.0-12.2 fL Immature Granulocyte % (Auto) 0 % Neutrophils (%) (Auto) 72 42-75 % Lymphocytes (%) (Auto) 16 12-44 % Monocytes (%) (Auto) 9 0-12 % Eosinophils (%) (Auto) 2 0-10 % Basophils (%) (Auto) 0 0-10 % Neutrophils # (Auto) 9.8 H 1.8-7.8 10^3/uL Lymphocytes # (Auto) 2.2 1.0-4.0 10^3/uL Monocytes # (Auto) 1.2 H 0.0-1.0 10^3/uL Eosinophils # (Auto) 0.3 0.0-0.3 10^3/uL Basophils # (Auto) 0.1 0.0-0.1 10^3/uL Immature Granulocyte # (Auto) 0.1 0.0-0.1 10^3/uL Prothrombin Time 12.6 12.2-14.7 SEC INR Comment 0.9 0.8-1.4 Activated Partial Thromboplast Time 27 24-35 SEC D-Dimer 1.80 H 0.00-0.49 UG/ML Sodium Level 142 135-145 MMOL/L Potassium Level 4.3 3.6-5.0 MMOL/L Chloride Level 105 98-107 MMOL/L Carbon Dioxide Level 23 21-32 MMOL/L Anion Gap 14 5-14 MMOL/L Blood Urea Nitrogen 38 H 7-18 MG/DL Creatinine 1.68 H 0.60-1.30 MG/DL Estimat Glomerular Filtration Rate 41 BUN/Creatinine Ratio 23 Glucose Level 203 H 70-105 MG/DL Calcium Level 8.9 8.5-10.1 MG/DL Corrected Calcium 9.1 8.5-10.1 MG/DL Magnesium Level 1.5 L 1.6-2.4 MG/DL Total Bilirubin 0.3 0.1-1.0 MG/DL Aspartate Amino Transf (AST/SGOT) 13 5-34 U/L Alkaline Phosphatase 79 40-136 U/L Myoglobin 141.0 H 10.0-92.0 NG/ML Troponin I 0.030 H <0.028 NG/ML B-Type Natriuretic Peptide 65.4 <100.0 PG/ML Total Protein 7.4 6.4-8.2 GM/DL Albumin 3.7 3.2-4.5 GM/DL My Orders Orders - RADHA LEDESMA Cbc With Automated Diff (01/18/21 21:58) Magnesium (01/18/21 21:58) Chest 1 View, Ap/Pa Only (01/18/21 21:58) Ekg Tracing (01/18/21 21:58) Comprehensive Metabolic Panel (01/18/21 21:58) Myoglobin Serum (01/18/21 21:58) Protime With Inr (01/18/21 21:58) Partial Thromboplastin Time (01/18/21 21:58) O2 (01/18/21 21:58) Monitor-Rhythm Ecg Trace Only (01/18/21 21:58) Lipid Panel (01/19/21 06:00) Ed Iv/Invasive Line Start (01/18/21:58) BNP (01/18/21 21:58) Fibrin Degradation Products (01/18/21 21:58) Troponin I (01/18/21 21:58) Nitroglycerin 0.4 Mg Btl 25's (Nitrostat (01/18/21 22:00) Aspirin Chewable Tablet (Baby Aspirin Ch (01/18/21 22:00) Medications Given in ED Current Medications Medications Dose Ordered Sig/[place] Route Start Time Stop Time Status Last Admin Dose Admin Aspirin 324 mg ONCE ONCE PO 01/18/21 22:00 01/18/21 22:01 DC 01/18/21 22:15 324 MG Nitroglycerin 0.4 mg UD PRN SL 01/18/21 22:00 01/18/21 22:16 0.4 MG Progress Progress Note : Time: 22:47 Progress Note NSTEMI versus PE? Plan to put him on Lovenox and consult with cardiology Initial ECG Impression Date: Jan 18, 2021 Initial ECG Impression Time: 21:51 Initial ECG Rate: 74 Initial ECG Rhythm: Normal Sinus Initial ECG Intervals: Normal Initial ECG Impression: Normal Comment PACs, normal sinus rhythm without clinically relevant ST changes. Diagnostic Imaging Diagonstic Imaging: Xray Plain Films/CT/US/NM/MRI: chest Comments Chronic changes seen, no acute appearing infiltrates, pneumothorax etc. Reviewed: Reviewed by Me Departure Communication (Admissions) Time/Spoke to Admitting Phy: 23:07 Discussed the case with Dr. Mcduffie and she agrees to observe with cardiac consultation Time/Spoke to Consulting Phy: 22:48 Discussed the case with Dr. Gonzalez and he agrees with Lovenox, Nitropaste, morphine and Tylenol for headache. Impression Primary Impression: Unstable angina Disposition: ADMITTED INPATIENT Condition: Stable Admissions Decision to Admit Reason: Admit from ER (General) Decision to Admit/Date: Jan 18, 2021 Time/Decision to Admit Time: 22:46 Departure-Patient Inst. Referrals: [facility] (PCP) Primary Care Physician MIKEY ZAZUETA APRN (Family) Primary Care Physician RADHA LEDESMA Jan 18, 2021 22:00
[2021-01-18 22:03] LABS: BASOPHILS # (AUTO) 0.1 10^3/uL (0.0-0.1); BASOPHILS % (AUTO) 0 % (0-10); EOSINOPHILS # (AUTO) 0.3 10^3/uL (0.0-0.3); EOSINOPHILS % (AUTO) 2 % (0-10); HEMATOCRIT 42 % (40-54); HEMOGLOBIN 13.1 g/dL (13.3-17.7); LYMPHOCYTES # (AUTO) 2.2 10^3/uL (1.0-4.0); LYMPHOCYTES % (AUTO) 16 % (12-44); MEAN CORPUSCULAR HEMOGLOBIN 29 pg (25-34); MEAN CORPUSCULAR HGB CONC 31 g/dL (32-36); MEAN CORPUSCULAR VOLUME 91 fL (80-99); MEAN PLATELET VOLUME 10.8 fL (9.0-12.2); MONOCYTES # (AUTO) 1.2 10^3/uL (0.0-1.0); MONOCYTES % (AUTO) 9 % (0-12); NEUTROPHILS # (AUTO) 9.8 10^3/uL (1.8-7.8); NEUTROPHILS % (AUTO) 72 % (42-75); PLATELET COUNT 265 10^3/uL (130-400); WHITE BLOOD COUNT 13.6 10^3/uL (4.3-11.0)
[2021-01-18 22:13] LABS: INR 0.9 (0.8-1.4); PROTHROMBIN TIME PATIENT 12.6 SEC (12.2-14.7)
[2021-01-18] MEDS: NITROGLYCERIN 0.4 MG SL TABS BTL 25'S SL PRN ×2 (22:16→22:55)
[2021-01-18 22:26] LABS: ALBUMIN 3.7 GM/DL (3.2-4.5); BILIRUBIN,TOTAL 0.3 MG/DL (0.1-1.0); CALCIUM 8.9 MG/DL (8.5-10.1); CREATININE SERUM 1.68 MG/DL (0.60-1.30); MAGNESIUM 1.5 MG/DL (1.6-2.4); POTASSIUM 4.3 MMOL/L (3.6-5.0); TOTAL PROTEIN 7.4 GM/DL (6.4-8.2)
[2021-01-18] MEDS ORDERED: ENOXAPARIN 100 MG/1 ML (LOVENOX) SYR SC ONE (23:15)
[2021-01-18] MEDS ORDERED: NITROGLYCERIN 2% OINT 1 GM UNIT DOSE PACKET TOP ONE (23:15)
[2021-01-19] VITALS: BP 158/70
[2021-01-19] MEDS ORDERED: NITROGLYCERIN 2% OINT 1 GM UNIT DOSE PACKET TOP PRN (00:30)
[2021-01-19 00:42] VITALS: BP 158/70
[2021-01-19] MEDS ORDERED: morphine INJ 4 MG/ML 1 ML (VIAL/SYRINGE) IV PRN (00:45)
[2021-01-19] MEDS ORDERED: ONDANSETRON 4 MG/2 ML (SDV) Z0FRAN IVP PRN (00:45)
[2021-01-19] MEDS ORDERED: ACETAMINOPHEN 325 MG TABLET PO PRN (00:45)
[2021-01-19] MEDS ORDERED: RT-ALBUTEROL/IPRATROPIUM 3 ML (DUONEB) VIAL INH PRN (02:00)
[2021-01-19] MEDS ORDERED: RT-ALBUTEROL/IPRATROPIUM 3 ML (DUONEB) VIAL INH SCH (03:00)
[2021-01-19 03:47] LABS: BASOPHILS # (AUTO) 0.1 10^3/uL (0.0-0.1); BASOPHILS % (AUTO) 0 % (0-10); EOSINOPHILS # (AUTO) 0.3 10^3/uL (0.0-0.3); EOSINOPHILS % (AUTO) 2 % (0-10); HEMATOCRIT 36 % (40-54); HEMOGLOBIN 11.2 g/dL (13.3-17.7); LYMPHOCYTES % (AUTO) 17 % (12-44); MEAN CORPUSCULAR HEMOGLOBIN 29 pg (25-34); MEAN CORPUSCULAR HGB CONC 31 g/dL (32-36); MEAN CORPUSCULAR VOLUME 92 fL (80-99); MEAN PLATELET VOLUME 11.4 fL (9.0-12.2); MONOCYTES # (AUTO) 1.1 10^3/uL (0.0-1.0); MONOCYTES % (AUTO) 9 % (0-12); NEUTROPHILS # (AUTO) 8.1 10^3/uL (1.8-7.8); NEUTROPHILS % (AUTO) 70 % (42-75); PLATELET COUNT 218 10^3/uL (130-400); WHITE BLOOD COUNT 11.6 10^3/uL (4.3-11.0)
[2021-01-19 04:00] VITALS: BP 170/76
[2021-01-19 04:20] LABS: ALBUMIN 3.1 GM/DL (3.2-4.5); CHLORIDE 106 MMOL/L (98-107); POTASSIUM 3.7 MMOL/L (3.6-5.0); SODIUM 140 MMOL/L (135-145)
[2021-01-19 04:21] LABS: CALCIUM 8.2 MG/DL (8.5-10.1)
[2021-01-19 04:22] LABS: TRIGLYCERIDES 153 MG/DL (<150); VLDL CHOLESTEROL 31 MG/DL (5-40)
[2021-01-19 04:23] LABS: GLUCOSE 177 MG/DL (70-105)
[2021-01-19 04:24] LABS: BILIRUBIN,TOTAL 0.2 MG/DL (0.1-1.0); CARBON DIOXIDE 22 MMOL/L (21-32)
[2021-01-19 04:26] LABS: ALKALINE PHOSPHATASE 63 U/L (40-136); CREATININE SERUM 1.41 MG/DL (0.60-1.30); GFR ESTIMATED 50
[2021-01-19 04:27] LABS: CHOLESTEROL 116 MG/DL (< 200)
[2021-01-19 04:28] LABS: BUN/CREATININE RATIO 28; HDL CHOLESTEROL 35 MG/DL (40-60)
[2021-01-19 04:29] LABS: ALANINE AMINOTRANSFERASE 11 U/L (0-55)
--- NOTE | 2021-01-19 06:01 | Diagnostic Imaging Report ---
INDICATION: Chest pain Portable chest 10:36 PM There is some volume loss at the right lung with some right upper lobe scarring. There are no infiltrates, effusions or pneumothoraces. IMPRESSION: Scarring right lung unchanged compared to 06/21/2019. No acute abnormality seen. Dictated by: Dictated on workstation # [id number]
[2021-01-19] MEDS: inSUlin ASPART (NovoLOG) 1 UNIT/0.01 ML (CHARGE PER UNIT) SC SCH ×2 (06:52→13:40)
--- NOTE | 2021-01-19 07:50 | Consultation-Cardiology ---
HPI-Cardiology Cardiology Consultation: Date of Consultation 01/19/21 Date of Admission 01-18-[address] Mcduffie DO Admitting Physician [place] Consulting Physician Ani Gonzalez MD Primary Hydrogenation Still Operator: Dr. Pizarro HPI: Chief Complaint: Chest pain Mr. Jasso is a 70 yr old male who has been admitted CSD 511 with c/o CP. Review of Systems-Cardiology All Other Systems Reviewed Negative Unless Noted: Yes MXG-Qkarfx-Yovtea Hx Patient Social History Smoking Status: Current Everyday Smoker Have you traveled recently?: No Alcohol Use?: No Pt feels they are or have been: No Tobacco type used: Cigarettes Immunizations Up To Date Tetanus Booster (TDap): Unknown Date of Pneumonia Vaccine: Jul 25, 2017 Date of Influenza Vaccine: Jul 23, 2018 Past Medical History PMH As described under Assessment. Family Medical History Family Medical History: He does not report fam h/o early CAD Family History: Patient reports no known family medical history. Allergies and Home Medications Allergies Coded Allergies: No Known Drug Allergies (Verified , 05/02/08) Home Medications Albuterol Sulfate 18 Gm Hfa.aer.ad, 2 PUFF INH Q4H PRN for SHORTNESS OF BREATH, (Reported) Alogliptin Benzoate 12.5 Mg Tablet, 12.5 MG PO DAILY, (Reported) Amlodipine Besylate 10 Mg Tablet, 10 MG PO DAILY, (Reported) Aspirin 81 Mg Tablet.dr, 81 MG PO DAILY, (Reported) Atorvastatin Calcium 40 Mg Tablet, 40 MG PO HS, (Reported) Budesonide/Formoterol Fumarate 10.2 Gm Hfa.aer.ad, 2 PUFF IH BID, (Reported) Cefdinir 300 Mg Capsule, 300 MG PO BID Prescribed by: CT MCDUFFIE on 06/14/19 1006 Clopidogrel Bisulfate 75 Mg Tablet, 75 MG PO DAILY, (Reported) Fluticasone Propionate 16 Gm [place].susp, 0 SPRAY NS DAILY Prescribed by: CT MCDUFFIE on 06/14/19 1005 Gabapentin 100 Mg Capsule, 100 MG PO BID, (Reported) Glipizide 5 Mg Tablet, 7.5 MG PO DAILY, (Reported) TAKES 1 & 1/2 (5MG) TABLETS Insulin Glargine,Hum.rec.anlog 100 Unit/1 Ml Insuln.pen, 10 UNITS SQ HS, (Reported) Ipratropium/Albuterol Sulfate 3 Ml Ampul.neb, 3 ML IH Q6H PRN for SHORTNESS OF BREATH, (Reported) Lisinopril 40 Mg Tablet, 20 MG PO DAILY, (Reported) TAKES 1/2 (40MG) TABLET Loratadine 10 Mg Tablet, 10 MG PO DAILY Prescribed by: CT MCDUFFIE on 06/14/19 1005 Menthol 113 Gm Gel..gram., TP TID PRN for MUSCLE PAIN, (Reported) Metoprolol Succinate 100 Mg Tab.er.24h, 50 MG PO DAILY, (Reported) TAKES 1/2 (100MG) TABLET Montelukast Sodium 10 Mg Tablet, 10 MG PO HS Prescribed by: CT MCDUFFIE on 06/14/19 1005 Naproxen 500 Mg Tablet, 500 MG PO BID PRN for PAIN-MILD, (Reported) Nicotine 1 Each Patch.td24, 21 MG TD DAILY, (Reported) Nicotine Polacrilex 2 Mg Lozenge, 2 MG BC Q1H PRN for SMOKING CESSATION, (Reported) Pantoprazole Sodium 40 Mg Tablet.dr, 40 MG PO DAILY, (Reported) Tamsulosin HCl 0.4 Mg Cap, 0.4 MG PO DAILY, (Reported) Tizanidine HCl 4 Mg Tablet, 2 MG PO BID PRN for MUSCLE SPASMS, (Reported) Physical Exam-Cardiology Physical Exam Vital Signs/I&O 01/18/21 01/18/21 01/18/21 01/18/21 21:49 21:50 23:45 23:51 Temp 35.7 Pulse 83 69 Resp 20 22 B/P (MAP) 178/87 (117) 157/69 (117) Pulse Ox 95 99 95 O2 Delivery Nasal Cannula Nasal Cannula Nasal Cannula O2 Flow Rate 2.5 2.5 2.50 2.50 01/19/21 01/19/21 01/19/21 01/19/21 00:00 00:00 00:42 00:55 Temp 36.6 36.12026 Pulse 70 70 65 Resp 20 20 B/P (MAP) 158/70 (99) 158/70 Pulse Ox 96 98 96 O2 Delivery Nasal Cannula Nasal Cannula O2 Flow Rate 2.50 2.50 2.50 01/19/21 01/19/21 01/19/21 04:00 04:24 07:00 Temp 36.4 Pulse 77 72 Resp 16 B/P (MAP) 170/76 (107) Pulse Ox 94 98 O2 Delivery Nasal Cannula Nasal Cannula O2 Flow Rate 2.50 2.50 Capillary Refill : Less Than 3 Seconds Data Review Labs Laboratory Tests 01/18/21 21:50: White Blood Count 13.6H, Red Blood Count 4.60, Hemoglobin 13.1L, Hematocrit 42, Mean Corpuscular Volume 91, Mean Corpuscular Hemoglobin 29, Mean Corpuscular Hemoglobin Concent 31L, Red Cell Distribution Width 14.6H, Platelet Count 265, Mean Platelet Volume 10.8, Immature Granulocyte % (Auto) 0, Neutrophils (%) (Auto) 72, Lymphocytes (%) (Auto) 16, Monocytes (%) (Auto) 9, Eosinophils (%) (Auto) 2, Basophils (%) (Auto) 0, Neutrophils # (Auto) 9.8H, Lymphocytes # (Auto) 2.2, Monocytes # (Auto) 1.2H, Eosinophils # (Auto) 0.3, Basophils # (Auto) 0.1, Immature Granulocyte # (Auto) 0.1, Prothrombin Time 12.6, INR Comment 0.9, Activated Partial Thromboplast Time 27, D-Dimer 1.80H, Sodium Level 142, Potassium Level 4.3, Chloride Level 105, Carbon Dioxide Level 23, Anion Gap 14, Blood Urea Nitrogen 38H, Creatinine 1.68H, Estimat Glomerular Filtration Rate 41, BUN/Creatinine Ratio 23, Glucose Level 203H, Calcium Level 8.9, Corrected Calcium 9.1, Magnesium Level 1.5L, Total Bilirubin 0.3, Aspartate Amino Transf (AST/SGOT) 13, Alanine Aminotransferase (ALT/SGPT) 13, Alkaline Phosphatase 79, Myoglobin 141.0H, Troponin I 0.030H, B-Type Natriuretic Peptide 65.4, Total Protein 7.4, Albumin 3.7 01/19/21 02:40: White Blood Count 11.6H, Red Blood Count 3.89L, Hemoglobin 11.2L, Hematocrit 36L , Mean Corpuscular Volume 92, Mean Corpuscular Hemoglobin 29, Mean Corpuscular Hemoglobin Concent 31L, Red Cell Distribution Width 14.7H, Platelet Count 218, Mean Platelet Volume 11.4, Immature Granulocyte % (Auto) 0, Neutrophils (%) (Auto) 70, Lymphocytes (%) (Auto) 17, Monocytes (%) (Auto) 9, Eosinophils (%) (Auto) 2, Basophils (%) (Auto) 0, Neutrophils # (Auto) 8.1H, Lymphocytes # (Auto) 2.0, Monocytes # (Auto) 1.1H, Eosinophils # (Auto) 0.3, Basophils # (Auto) 0.1, Immature Granulocyte # (Auto) 0.1, Sodium Level 140, Potassium Level 3.7, Chloride Level 106, Carbon Dioxide Level 22, Anion Gap 12, Blood Urea Nitrogen 39H, Creatinine 1.41H, Estimat Glomerular Filtration Rate 50, BUN/Creatinine Ratio 28, Glucose Level 177H, Calcium Level 8.2L, Corrected Calcium 8.9, Total Bilirubin 0.2, Aspartate Amino Transf (AST/SGOT) 13, Alanine Aminotransferase (ALT/SGPT) 11, Alkaline Phosphatase 63, Troponin I < 0.028, Total Protein 6.0L, Albumin 3.1L, Triglycerides Level 153H, Cholesterol Level 116, LDL Cholesterol Direct 58, VLDL Cholesterol 31, HDL Cholesterol 35L Laboratory Tests 01/18/21 21:50 01/19/21 02:40 Radiology NAME: [facility] REC#: [id number] PT STATUS: ADM Vladimir : 1950 PHYSICIAN: RADHA LEDESMA MD ADMIT DATE: 01/18/21/[facility] Signed Date of Exam:01/18/21 CHEST 1 VIEW, AP/PA ONLY INDICATION: Chest pain Portable chest 10:36 PM There is some volume loss at the right lung with some right upper lobe scarring. There are no infiltrates, effusions or pneumothoraces. IMPRESSION: Scarring right lung unchanged compared to 06/21/2019. No acute abnormality seen. Dictated by: Dictated on workstation # [id number] Dict: 01/19/21 0559 Trans: 01/19/21 0645 EMMA [id number] Interpreted by: VANNESSA NOWAK MD Electronically signed by: VANNESSA NOWAK MD 01/19/21 0645 A/P-Cardiology Assessment/Admission Diagnosis Chest pain Peripheral arterial disease - angiogram was done on December 23, [address] Pizarro showed heavily calcified right SFA with moderate to severe stenosis at the mid section, total occlusion below the trifurcation fairly small arteries, evaluation of the left side showed heavily calcified left SFA with moderate severe stenosis at the mid portion with total occlusion below the trifurcation, medical therapy is recommended with exercise program and only intervention is recommended if patient have critical limb ischemia Coronary artery disease-history of multiple stents in the past. - Cardiac catheterization was done in May 2014 which showed heavily calcified LAD with 2 areas of 50 percent stenosis in the proximal and mid LAD, distally there is a 50-60 percent stenosis. Nonobstructive disease. Calcified circumflex artery with patent stent, known to have 3.016 mm stent, had 50 percent in-stent restenosis, also known to have 2.518 mm Promus stent and 2.028 mm Mini Vision stent in the circumflex artery. The right coronary artery is calcified with multiple stents, known to have 2.2523 mm mini vision stent, 2.2512 mm mini vision stents 2 to the right coronary artery, 2.7532 mm Liberte stent, 50 percent in-stent restenosis. - Crdiac catheterization was done on May 18, [address] [facility]. Reported to have 90 percent mid LAD stenosis had a stent using Promus Premier 2.5 time 12 mm to the mid LAD, diagonal artery has 95 percent stenosis that was 2 mm and treated medically, the other stents were patent - Cardiac catheterization was done on December 23, [address] Pizarro after having an abnormal stress test which showed heavily calcified coronary system with multiple stents in the LAD, circumflex and right coronary artery with [id number] disease in the stent nonobstructive disease, severe stenosis at the first diagonal branch and right PDA, small arteries not amendable to intervention Chronic diastolic congestive heart failure Echocardiogram 04-11-2020 of showed LVEF 55-65%. Grade 1 diastolic dysfunction. 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 Hypertension Hyperlipidemia Diabetes mellitus Tobaccoism, still smoking about a pack a day Mild bilateral carotid stenosis, last ultrasound was done in October [address] Pizarro Clinical Quality Measures AMI/AHF: ASA po Prior to arrival: ENRIQUE Lee Jan 19, 2021 07:50
[2021-01-19] MEDS ORDERED: RT--FLUTICASONE/SALMETEROL 232-14 (AIRDUO RespiCLICK) IH SCH (08:00)
[2021-01-19 08:04] VITALS: BP 148/70
--- NOTE | 2021-01-19 08:22 | Consultation-Cardiology ---
HPI-Cardiology Cardiology Consultation: Date of Consultation 01/19/21 Time Seen by a Provider: 08:10 Date of Admission Attending Physician Ct Mcduffie DO Admitting Physician [facility] Consulting Physician NORBERTO DRIVER MD, MA, FACP, FACC, [facility] [place], CCDS HPI: Chief Complaint: CC: Chest discomfort HPI Mr. Dias is a 70 yr old male who has been admitted CSD 511 with c/o chest discomfort: L parasternal, continuous for 7-8 hours, mild to mod, non-radiating, partially but not completely improved with s/l NTG, unlike previous angina, not associated with other symptoms. It resolved on its own and has not recurred. He currently feels back to usual baseline. Chronic exertional shortness of breath. No palp or syncope. No leg swelling Review of Systems-Cardiology Review of Systems Constitutional: No chills, No fever, No lightheadedness, No weight loss, No weight gain Eyes: No vision change Ears/Nose/Throat: No ear discharge, No nasal drainage, No recent hearing loss Respiratory: As described under HPI Cardiovascular: As described under HPI Gastrointestinal: No diarrhea, No nausea, No vomiting Genitourinary: No dysuria, No hematuria, No urine frequency changes Musculoskeletal: back pain (chronic) Skin: No rash, No ulcerations Psychiatric/Neurological: No seizure, No focal weakness, No syncope Hematologic: No bleeding abnormalities All Other Systems Reviewed Negative Unless Noted: Yes YOE-Ndtyvz-Hcpseh Hx Patient Social History Smoking Status: Current Everyday Smoker Have you traveled recently?: No Alcohol Use?: No Pt feels they are or have been: No Tobacco type used: Cigarettes Immunizations Up To Date Tetanus Booster (TDap): Unknown Date of Pneumonia Vaccine: Jul 25, 2017 Date of Influenza Vaccine: Jul 23, 2018 Past Medical History PMH As described under Assessment. Family Medical History Family Medical History: He does not report fam h/o early CAD Family History: Patient reports no known family medical history. Allergies and Home Medications Allergies Coded Allergies: No Known Drug Allergies (Verified , 05/02/08) Home Medications Albuterol Sulfate 18 Gm Hfa.aer.ad, 2 PUFF INH Q4H PRN for SHORTNESS OF BREATH, (Reported) Alogliptin Benzoate 12.5 Mg Tablet, 12.5 MG PO DAILY, (Reported) Amlodipine Besylate 10 Mg Tablet, 10 MG PO DAILY, (Reported) Aspirin 81 Mg Tablet.dr, 81 MG PO DAILY, (Reported) Atorvastatin Calcium 40 Mg Tablet, 40 MG PO HS, (Reported) Budesonide/Formoterol Fumarate 10.2 Gm Hfa.aer.ad, 2 PUFF IH BID, (Reported) Cefdinir 300 Mg Capsule, 300 MG PO BID Prescribed by: CT MCDUFFIE on 06/14/19 100 Clopidogrel Bisulfate 75 Mg Tablet, 75 MG PO DAILY, (Reported) Fluticasone Propionate 16 Gm Reading.susp, 0 SPRAY NS DAILY Prescribed by: CT MCDUFFIE on 06/14/191004 Gabapentin 100 Mg Capsule, 100 MG PO BID, (Reported) Glipizide 5 Mg Tablet, 7.5 MG PO DAILY, (Reported) TAKES 1 & 1/2 (5MG) TABLETS Insulin Glargine,Hum.rec.anlog 100 Unit/1 Ml Insuln.pen, 10 UNITS SQ HS, (Reported) Ipratropium/Albuterol Sulfate 3 Ml Ampul.neb, 3 ML IH Q6H PRN for SHORTNESS OF BREATH, (Reported) Lisinopril 40 Mg Tablet, 20 MG PO DAILY, (Reported) TAKES 1/2 (40MG) TABLET Loratadine 10 Mg Tablet, 10 MG PO DAILY Prescribed by: CT MCDUFFIE on 06/14/191004 Menthol 113 Gm Gel..gram., TP TID PRN for MUSCLE PAIN, (Reported) Metoprolol Succinate 100 Mg Tab.er.24h, 50 MG PO DAILY, (Reported) TAKES 1/2 (100MG) TABLET Montelukast Sodium 10 Mg Tablet, 10 MG PO HS Prescribed by: CT MCDUFFIE on 06/14/191004 Naproxen 500 Mg Tablet, 500 MG PO BID PRN for PAIN-MILD, (Reported) Nicotine 1 Each Patch.td24, 21 MG TD DAILY, (Reported) Nicotine Polacrilex 2 Mg Lozenge, 2 MG BC Q1H PRN for SMOKING CESSATION, (Reported) Pantoprazole Sodium 40 Mg Tablet.dr, 40 MG PO DAILY, (Reported) Tamsulosin HCl 0.4 Mg Cap, 0.4 MG PO DAILY, (Reported) Tizanidine HCl 4 Mg Tablet, 2 MG PO BID PRN for MUSCLE SPASMS, (Reported) Patient Home Medication List Home Medication List Reviewed: Yes Physical Exam-Cardiology Physical Exam Vital Signs/I&O 01/18/21 01/18/21 01/18/21 01/18/21 21:49 21:50 23:45 23:51 Temp 35.7 Pulse 83 69 Resp 20 22 B/P (MAP) 178/87 (117) 157/69 (117) Pulse Ox 95 99 95 O2 Delivery Nasal Cannula Nasal Cannula Nasal Cannula O2 Flow Rate 2.5 2.5 2.50 2.50 01/19/21 01/19/21 01/19/21 01/19/21 00:00 00:00 00:42 00:55 Temp 36.6 36.31382 Pulse 70 70 65 Resp 20 20 B/P (MAP) 158/70 (99) 158/70 Pulse Ox 96 98 96 O2 Delivery Nasal Cannula Nasal Cannula O2 Flow Rate 2.50 2.50 2.50 01/19/21 01/19/21 01/19/21 01/19/21 04:00 04:24 07:00 08:04 Temp 36.4 35.2 Pulse 77 72 70 Resp 16 22 B/P (MAP) 170/76 (107) 148/70 (96) Pulse Ox 94 98 95 O2 Delivery Nasal Cannula Nasal Cannula Nasal Cannula O2 Flow Rate 2.50 2.50 2.50 Capillary Refill : Less Than 3 Seconds Constitutional: AAO x 3, well-developed, well-nourished HEENT: PERRL, EOMI, hearing is well preserved Neck: carotid pulses are 2 + bilaterally Respiratory: No accessory muscle use; other (fair to good, bilat air entry; prolonged exp; a few exp wheezes) Cardiovascular: regular rate-rhythm, S1 and S2, systolic murmur (soft MARY at card base) Gastrointestinal: No tender; soft; No guarding, No rebound; audible bowel sounds Extremities: No clubbing, No cyanosis, No significant edema Neurologic/Psychiatric: oriented x 3, other (moves all limbs equally) Skin: warm/dry; No cyanosis, No cool, No rash on exposed areas, No ulcerations on exposed areas Data Review Labs Laboratory Tests 01/18/21 21:50: White Blood Count 13.6H, Red Blood Count 4.60, Hemoglobin 13.1L, Hematocrit 42, Mean Corpuscular Volume 91, Mean Corpuscular Hemoglobin 29, Mean Corpuscular Hemoglobin Concent 31L, Red Cell Distribution Width 14.6H, Platelet Count 265, Mean Platelet Volume 10.8, Immature Granulocyte % (Auto) 0, Neutrophils (%) (Auto) 72, Lymphocytes (%) (Auto) 16, Monocytes (%) (Auto) 9, Eosinophils (%) (Auto) 2, Basophils (%) (Auto) 0, Neutrophils # (Auto) 9.8H, Lymphocytes # (Auto) 2.2, Monocytes # (Auto) 1.2H, Eosinophils # (Auto) 0.3, Basophils # (Au to) 0.1, Immature Granulocyte # (Auto) 0.1, Prothrombin Time 12.6, INR Comment 0.9, Activated Partial Thromboplast Time 27, D-Dimer 1.80H, Sodium Level 142, Potassium Level 4.3, Chloride Level 105, Carbon Dioxide Level 23, Anion Gap 14, Blood Urea Nitrogen 38H, Creatinine 1.68H, Estimat Glomerular Filtration Rate 41, BUN/Creatinine Ratio 23, Glucose Level 203H, Calcium Level 8.9, Corrected Calcium 9.1, Magnesium Level 1.5L, Total Bilirubin 0.3, Aspartate Amino Transf (AST/SGOT) 13, Alanine Aminotransferase (ALT/SGPT) 13, Alkaline Phosphatase 79, Myoglobin 141.0H, Troponin I 0.030H, B-Type Natriuretic Peptide 65.4, Total Protein 7.4, Albumin 3.7 01/19/21 02:40: White Blood Count 11.6H, Red Blood Count 3.89L, Hemoglobin 11.2L, Hematocrit 36L , Mean Corpuscular Volume 92, Mean Corpuscular Hemoglobin 29, Mean Corpuscular Hemoglobin Concent 31L, Red Cell Distribution Width 14.7H, Platelet Count 218, Mean Platelet Volume 11.4, Immature Granulocyte % (Auto) 0, Neutrophils (%) (Auto) 70, Lymphocytes (%) (Auto) 17, Monocytes (%) (Auto) 9, Eosinophils (%) (Auto) 2, Basophils (%) (Auto) 0, Neutrophils # (Auto) 8.1H, Lymphocytes # (Auto) 2.0, Monocytes # (Auto) 1.1H, Eosinophils # (Auto) 0.3, Basophils # (Auto) 0.1, Immature Granulocyte # (Auto) 0.1, Sodium Level 140, Potassium Level 3.7, Chloride Level 106, Carbon Dioxide Level 22, Anion Gap 12, Blood Urea Nitrogen 39H, Creatinine 1.41H, Estimat Glomerular Filtration Rate 50, BUN/C reatinine Ratio 28, Glucose Level 177H, Calcium Level 8.2L, Corrected Calcium 8.9, Total Bilirubin 0.2, Aspartate Amino Transf (AST/SGOT) 13, Alanine Aminotra nsferase (ALT/SGPT) 11, Alkaline Phosphatase 63, Troponin I < 0.028, Total Protein 6.0L, Albumin 3.1L, Triglycerides Level 153H, Cholesterol Level 116, LDL Cholesterol Direct 58, VLDL Cholesterol 31, HDL Cholesterol 35L Laboratory Tests 01/18/21 21:50 01/19/21 02:40 A/P-Cardiology Assessment/Admission Diagnosis Chest discomfort without any evidence of WI (serial troponin: 0.03, <0.028) Peripheral arterial disease - angiogram was done on December 23, [address] Pizarro showed heavily calcified right SFA with moderate to severe stenosis at the mid section, total occlusion below the trifurcation fairly small arteries, evaluation of the left side showed heavily calcified left SFA with moderate severe stenosis at the mid portion with total occlusion below the trifurcation, medical therapy was recommended with exercise program and only intervention is recommended if patient have critical limb ischemia Coronary artery disease-history of multiple stents in the past. - Cardiac catheterization was done in May 2014 which showed heavily calcified LAD with 2 areas of 50 percent stenosis in the proximal and mid LAD, distally there is a 50-60 percent stenosis. Nonobstructive disease. Calcified circumflex artery with patent stent, known to have 3.016 mm stent, had 50 percent in-stent restenosis, also known to have 2.518 mm Promus stent and 2.028 mm Mini Vision stent in the circumflex artery. The right coronary artery is calcified with multiple stents, known to have 2.2523 mm mini vision stent, 2.2512 mm mini vision stents 2 to the right coronary artery, 2.7532 mm Liberte stent, 50 percent in-stent restenosis. - Cardiac catheterization was done on May 18, 2015 in [facility]. Reported to have 90 percent mid LAD stenosis had a stent using Promus Premier 2.5 time 12 mm to the mid LAD, diagonal artery has 95 percent stenosis that was 2 mm and treated medically, the other stents were patent - Cardiac catheterization was done on December 23, [address] Pizarro after an abnormal stress test: heavily calcified coronary system with multiple stents in the LAD, circumflex and right coronary artery with [id number]-[id number] disease in the stent nonobstructive disease, severe stenosis at the first diagonal branch and right PDA, small arteries not amenable to intervention Chronic diastolic congestive heart failure Echocardiogram 04-11-2020 of showed LVEF 55-65%. Grade 1 diastolic dysfunction. 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 Pizarro Discussion and Recomendations * Increase beta-baldev * Add amlodipine * Continue DAPT and statin * Echo * Increase ambulation * Monitor labs * Advised to quit smoking immediately and completely Clinical Quality Measures AMI/AHF: ASA po Prior to arrival: NORBERTO Foley MD FACP [facility] Jan 19, 2021 08:22
[2021-01-19] MEDS: PANTOPRAZOLE 40 MG (PROTONIX) VIAL IV SCH ×2 (08:30→13:40)
[2021-01-19] MEDS ORDERED: ASPIRIN E.C. 81 MG (ECOTRIN) TAB PO SCH (09:00)
[2021-01-19] MEDS ORDERED: GABAPENTIN 100 MG (NEURONTIN) CAP PO SCH ×2 (09:00→21:00)
[2021-01-19] MEDS ORDERED: CLOPIDOGREL 75 MG (PLAVIX) TABLET PO SCH ×2 (09:00→14:00)
[2021-01-19] MEDS ORDERED: amLODIPine 5 MG (NORVASC) TAB PO NR (09:30)
[2021-01-19] MEDS ORDERED: ENOXAPARIN 100 MG/1 ML (LOVENOX) SYR SC SCH (11:00)
[2021-01-19] MEDS ORDERED: PATIENT MAY USE OWN MEDS, ALL MC SCH (11:15)
[2021-01-19] MEDS ORDERED: NAPR-1088 PO (11:25)
[2021-01-19] MEDS ORDERED: GLIP10TA13 PO (11:25)
[2021-01-19] MEDS ORDERED: EMPA25TA PO (11:26)
[2021-01-19] MEDS ORDERED: METF-398 PO (11:26)
[2021-01-19] MEDS ORDERED: TIOT4MIS2 IH (11:26)
[2021-01-19] MEDS ORDERED: HYDR25TA4 PO (11:26)
[2021-01-19] MEDS ORDERED: MONT10TA32 PO (11:26)
[2021-01-19] MEDS ORDERED: NITR0.4T39 SL (11:26)
[2021-01-19] MEDS ORDERED: FLUT9.9S NS ×2 (11:26)
[2021-01-19] MEDS ORDERED: CARV12.53 PO (11:26)
[2021-01-19 11:49] VITALS: BP 144/77
[2021-01-19] MEDS ORDERED: CARV6.252 PO (12:09)
[2021-01-19] MEDS ORDERED: AMLO-250 PO (12:09)
[2021-01-19] MEDS ORDERED: FLUTICASONE NASAL SPRAY NS PRN (12:15)
[2021-01-19] MEDS ORDERED: NITROGLYCERIN 0.4 MG SL TABS BTL 25'S SL PRN (12:15)
[2021-01-19] MEDS ORDERED: RT-ALBUTEROL SULF 2.5 MG/3 ML PRE-MIX VIAL INH PRN (12:15)
--- NOTE | 2021-01-19 12:22 | Short Stay Summary-Hospitalist ---
KRISTAN CRAVEN, MED STUDENT 01/19/21 1221: History of Present Illness HPI/Chief Complaint Gilmar Dias is a 70 y/o M w/ PMH of CAD s/p stents, COPD, HTN, DM presenting for chest pain. Chest pain started during his car ride home from [employer] yesterday afternoon. The chest pain is described as a constant, pressure, located in the central sternum, does not radiate anywhere, waxes and wanes in intensity but is a 7-8 at its worst, and is associated with shortness of breath. He did take some nitro which helped with his chest pain. EKG done in the emergency department was unremarkable for ST changes or T wave inversions. He did have an initial elevated troponin at 0.03 but a subsequent troponin was negative. Date Seen 01/19/[address] Mcduffie DO [facility] Center/[facility] Referring Physician Date of Admission Jan 18, 2021 at 23:10 Home Medications & Allergies Home Medications Reviewed patient Home Medication Reconciliation performed by pharmacy medication reconciliations deburring technician and/or nursing. Patients Allergies have been reviewed. Allergies Allergies Coded Allergies No Known Drug Allergies (Verified05/02/08) Past Jcdhzan-Ssfpsx-Fflvvz Hx Patient Social History Alcohol Use: Denies Use Recreational Drug Use: No Drug of Choice: Occasional cannabis Smoking Status: Current Everyday Smoker Type Used: Cigarettes (Pack per day) Recent Foreign Travel: No Contact w/other who traveled: No Recent Hopitalizations: No Recent Infectious Disease Expo: No Immunizations Up To Date Tetanus Booster (TDap): Unknown Pediatric: Yes Date of Pneumonia Vaccine: Jul 25, 2017 Date of Influenza Vaccine: Jul 23, 2018 Seasonal Allergies Seasonal Allergies: No Past Medical History Surgeries: Coronary Stent Respiratory: COPD Currently Using CPAP: No Currently Using BIPAP: No Cardiac: Coronary Artery Disease, Hypertension Neurological: Neuropathy Reproductive: No Gastrointestinal: Hepatitis, Polyps Musculoskeletal: Arthritis Endocrine: Diabetes, Non-Insulin dep HEENT: Cataract History of Blood Disorders: No Family History Patient reports no known family medical history. No Pertinent Family Hx Review of Systems Constitutional: No no symptoms reported, No see HPI, No chills, No diaphoresis, No dizziness, No fever, No malaise, No weakness, No weight gain, No weight loss, No other EENTM: No see HPI, No no symptoms reported, No ear discharge, No hearing loss, No ear pain, No blurred vision, No double vision, No eye pain, No tearing, No vision loss, No dental problems, No hoarseness, No mouth pain, No mouth swelling, No epistaxis, No nose congestion, No nose pain, No throat pain, No throat swelling, No other Respiratory: short of breath Cardiovascular: chest pain Gastrointestinal: No RUQ, No LUQ, No RLQ, No LLQ, No no symptoms reported, No see HPI, No abdominal pain, No constipation, No diarrhea, No dysphagia, No hematemesis, No heartburn, No jaundice, No loss of appetite, No melena, No nausea, No vomiting, No other Genitourinary: No no symptoms reported, No see HPI, No decreased output, No discharge, No dysuria, No frequency, No hematuria, No hesitancy, No incontinence, No nocturia, No pain, No other Musculoskeletal: No no symptoms reported, No see HPI, No back pain, No gout, No joint pain, No joint swelling, No muscle pain, No muscle stiffness, No muscle cramps, No muscle twitching, No muscle weakness, No neck pain, No other Skin: No no symptoms reported, No see HPI, No change in color, No change in hair/nails, No dryness, No hx of skin cancer, No lesions, No lumps, No pruritus, No rash, No other Psychiatric/Neurological: Denies No Symptoms Reported, Denies See HPI, Denies Anxiety, Denies Depressed, Denies Emotional Problems, Denies Headache, Denies Numbness, Denies Paresthesia, Denies Pre-Existing Deficit, Denies Seizure, Denies Tingling, Denies Tremors, Denies Weakness, Denies Other Physical Exam Physical Exam Vital Signs Vital Signs - First Documented 01/18/21 01/18/21 21:49 21:50 Temp 35.7 Pulse 83 Resp 20 B/P (MAP) 178/87 (117) Pulse Ox 95 O2 Delivery Nasal Cannula O2 Flow Rate 2.5 Capillary Refill : Less Than 3 Seconds Height, Weight, BMI Height: 5'11.00" Weight: 225lbs. 0.0oz. 102.603041oy; 28.63 BMI Method:Stated General Appearance: No Apparent Distress, WD/WN Eyes: Bilateral Eye Normal Inspection, Bilateral Eye EOMI HEENT: PERRL/EOMI, Pharynx Normal, Moist Mucous Membranes Neck: Full Range of Motion, Normal Inspection Respiratory: Chest Non Tender, Lungs Clear, Normal Breath Sounds, No Accessory Muscle Use, No Respiratory Distress Cardiovascular: Regular Rate, Rhythm, No Edema, Normal Peripheral Pulses Gastrointestinal: Normal Bowel Sounds, No Organomegaly Extremity: Normal Capillary Refill, Pedal Edema (1+ bilateral symmetric) Neurologic/Psychiatric: Alert, Oriented x3, No Motor/Sensory Deficits Skin: Normal Color, Warm/Dry Results Results/Procedures Labs Laboratory Tests 01/18/21 21:50 01/19/21 02:40 Patient resulted labs reviewed. Imaging: Reviewed Imaging Report Short Stay Diagnosis Discharge Diagnosis-Short Stay Admission Diagnosis Unstable angina Final Discharge Diagnosis Unstable angina Conclusion Plan Gilmar Dias is a 70 y/o M w/ PMH of CAD s/p stents, COPD, HTN, DM presenting for chest pain secondary to unstable angina #CAD #Chest pain - Initial troponin elevated - EKG negative for ischemic changes - Chest pain resolved on its own this morning - Takes Aspirin, plavex, carvedilol - Cardiology saw this morning - Cath last year -> R PDA had a diagonal branch that was occluded but not amenable to intervention - Denies dysphagia, GERD, pleuritic chest pain, no cough, does not drink, no hx of biliary colic, no hx of pancreatitis, no hx of vasospasm Plan: > Discharge > Start amlodipine > Increase carvedilol dose > Outpatient echo > Smoking cessation > Continue aspirin, plavex Clinical Quality Measures AMI/AHF: ASA po Prior to arrival: CT Eckert DO 01/20/21 0701: History of Present Illness HPI/Chief Complaint CC: CP HPI: This is a 70yoWM clinic patient of [facility] known to me from prior hospital stay and O2 initiation who presented to the ER with CP and considering his hx of CAD he was placed in observation. Cardiology evaluated him to have no evidence of ACS and adjusted BP meds and will DC. Source: patient, RN/MD, old records Exam Limitations: no limitations Time Seen by a Provider: 11:00 Past Rjjhzse-Qsxoxr-Fnwgsp Hx Past Med/Social Hx: Reviewed Nursing Past Med/Soc Hx, Reviewed and Corrections made Patient Social History Marrital Status: Employed/Student: retired Past Medical History Surgeries: Coronary Stent Respiratory: COPD, Emphysema, Pneumonia Cardiac: Coronary Artery Disease, High Cholesterol, Hypertension Family History Patient reports no known family medical history. Review of Systems Cardiovascular: chest pain Physical Exam Physical Exam General Appearance: No Apparent Distress, WD/WN, Chronically ill Respiratory: Lungs Clear Cardiovascular: Regular Rate, Rhythm Neurologic/Psychiatric: Alert, Oriented x3 Short Stay Diagnosis Discharge Diagnosis-Short Stay Admission Diagnosis Chest pain Final Discharge Diagnosis Chest pain without evidence of ACS Conclusion Plan DC home Supervisory-Addendum Brief Verification & Attestation Participated in pt care: history, MDM, physical Personally performed: exam, history, MDM, supervision of care Care discussed with: Medical Student Procedures: n/a Results interpretation: Verified all documentation Verification and Attestation of Medical Student E/M Service A medical student performed and documented this service in my presence. I re viewed and verified all information documented by the medical student and made modifications to such information, when appropriate. I personally performed the physical exam and medical decision making. Ct Mcduffie, Jan 20, 2021,07:01 KRISTAN CRAVEN, MED STUDENT Jan 19, 2021 12:21 CT MCDUFFIE DO Jan 20, 2021 07:01
[2021-01-19] MEDS ORDERED: lisINopril 40 MG (PRINIVIL) TABLET PO SCH (14:00)
[2021-01-19] MEDS ORDERED: EMPAGLIFLOZIN 25 MG TAB PO SCH (14:00)
[2021-01-19] MEDS ORDERED: NAPROXEN 250 MG (NAPROSYN) TABLET PO PRN (14:30)
[2021-01-19 14:48] VITALS: BP 144/77
[2021-01-19] MEDS ORDERED: ENOXAPARIN 40 MG/0.4 ML (LOVENOX) SYR SC SCH (17:00)
[2021-01-19] MEDS ORDERED: MONTELUKAST 10 MG (SINGULAIR) TAB PO SCH (17:00)
[2021-01-19] MEDS ORDERED: GLIPIZIDE 10 MG TABLET PO SCH (17:00)
[2021-01-19] MEDS ORDERED: TAMSULOSIN 0.4 MG (FLOMAX) CAP PO SCH ×2 (17:00→18:00)
[2021-01-19] MEDS ORDERED: metFORMIN 850 MG (GLUCOPHAGE) TAB PO SCH (18:00)
[2021-01-19] MEDS ORDERED: SYMBICORT 160/4.5 INHALER IH SCH (21:00)
[2021-01-20] MEDS ORDERED: SPIRIVA RESPIMAT IH SCH (08:00)
[2021-01-20] MEDS ORDERED: PANTOPRAZOLE 40 MG (PROTONIX) TAB PO SCH (09:00)
[2021-01-20] MEDS ORDERED: amLODIPine 5 MG (NORVASC) TAB PO SCH (09:00)
[2021-01-20] MEDS ORDERED: ASPIRIN E.C. 81 MG (ECOTRIN) TAB PO SCH (09:00)
[2021-01-20] MEDS ORDERED: ASPIRIN 81 MG CHEW (CHILDREN'S ASA) PO SCH (09:00)
[2021-01-20] MEDS ORDERED: NON-FORMULARY MEDICATION 1 EA EA (Insulin Glargine,Hum.rec.anlog (Lantus Solostar) 10 UNIT SQ SCH (12:00)
== END 2021-01-19 14:48 | disposition home or self-care (01) ==
LOC: EDUNIT# 21:49 → ER 21:50 → CSD 23:10
PROVIDERS: ADMIT Internal Medicine; ATTEND Internal Medicine
DX: I25.110 Atherosclerotic heart disease of native coronary artery with unstable angina pectoris (principal); I10 Essential (primary) hypertension; J43.9 Emphysema, unspecified; E78.00 Pure hypercholesterolemia, unspecified; E11.40 Type 2 diabetes mellitus with diabetic neuropathy, unspecified; E11.36 Type 2 diabetes mellitus with diabetic cataract; H26.9 Unspecified cataract; M19.90 Unspecified osteoarthritis, unspecified site; Z79.82 Long term (current) use of aspirin; F17.210 Nicotine dependence, cigarettes, uncomplicated; Z79.51 Long term (current) use of inhaled steroids; Z79.4 Long term (current) use of insulin; Z79.899 Other long term (current) drug therapy
CPT/HCPCS: 71045; 80053 ×2; 80061; 82962; 83735; 83874; 83880; 84484 ×2; 85025 ×2; 85379; 85610; 85730; 87081; 93005; 93041; 94640 ×2; 94760; 99284; G0378; 36415

== ENCOUNTER → 2021-05-14 | Outpatient (CLI) | payer MEDICARE ==
[~2021-05-14] VITALS: Ht 177 cm; Wt 90.0 kg
[~2021-05-14] MED LIST changes: +AMLO-250 PO; +CARV12.53 PO; +CARV25TA PO; +CARV6.252 PO; +CATHETER FLUSH 10 ML SYR IV PRN; +EMPA25TA PO; +FLUT9.9S NS; +GLIP10TA13 PO; +MIDAZOLAM 5 MG/5 ML (VERSED) VIAL ONE; +NAPR-1088 PO; +NITR0.4T39 SL; +REGADENOSON 0.4 MG/5 ML SYR (LEXISCAN) IV ONE; +TIOT4MIS2 IH; +fentaNYL INJ 100 MCG/2 ML AMP ONE
[2021-05-14 09:13] VITALS: BP 155/78
--- NOTE | 2021-05-14 11:32 | Cardiology Stress Test Report ---
Stress Test Report Date of Procedure/Referring: Date of Procedure: May 14, 2021 PCP Fadumo Pizarro MD Admitting Physician Center/[facility] Indications: CP Baseline Heart Rate: 71 Baseline Blood Pressure: Blood Pressure Systolic: 155 Blood Pressure Diastolic: 78 Baseline Vitals Vital Signs Date Time Temp Pulse Resp B/P (MAP) Pulse Ox O2 Delivery O2 Flow Rate FiO2 05/14/21 09:13 71 18 155/78 (103) 97 Room Air Baseline EKG: Baseline EKG: NSR Summary After explaining the procedure to the patient, he signed a consent and then brought to the stress nuclear laboratory. Patient received 0.4 mg Lexiscan for stress test, ECG, heart rate and blood pressure were monitored continuously. Resting and stress dose of radio tracer were injected, imaging was acquired and reviewed in short axis, horizontal long axis and vertical long axis views. TID: 1.1 SSS: 20 SDS: 4 EF: 46 1. Patient tolerated Lexiscan well 2. Decreased uptake involving the whole inferior wall and inferolateral wall with mild reversibility 3. Normal left ventricular size, hypokinesia of the inferior wall, EF 46% FADUMO PIZARRO MD May 14, 2021 11:32
== END ==
LOC: CARD 07:31
PROVIDERS: ATTEND Internal Medicine Cardiovascular Disease
DX: I25.10 Atherosclerotic heart disease of native coronary artery without angina pectoris (principal); I10 Essential (primary) hypertension
CPT/HCPCS: 78452; 93017; A9502

== ENCOUNTER 2021-05-16 09:00 | Day surgery (SDC) | payer MEDICARE, OTHER ==
[~2021-05-16] VITALS: Ht 180 cm; Wt 204.0 kg
[2021-05-16] VITALS (11 sets, daily range): BP systolic 123–149; BP diastolic 60–86
[2021-05-16 07:35] LABS: HEMATOCRIT 41 % (40-54); HEMOGLOBIN 13.2 g/dL (13.3-17.7); MEAN CORPUSCULAR HEMOGLOBIN 29 pg (25-34); MEAN CORPUSCULAR HGB CONC 33 g/dL (32-36); MEAN CORPUSCULAR VOLUME 90 fL (80-99); MEAN PLATELET VOLUME 10.9 fL (9.0-12.2); PLATELET COUNT 264 10^3/uL (130-400); WHITE BLOOD COUNT 14.9 10^3/uL (4.3-11.0)
[2021-05-16 07:43] LABS: POTASSIUM 4.2 MMOL/L (3.6-5.0)
--- NOTE | 2021-05-16 07:43 | Diagnostic Imaging Report ---
Indication: Respiratory distress. Comparison with 01/18/2021. FINDINGS: There continues to be some volume loss on the right with compensatory hyperaeration left lung. This is not changed significantly in appearance and is consistent with chronic scarring. Left lung remains clear. Heart is not enlarged. IMPRESSION: Chronic volume loss and scarring right lung. No acute changes noted. Dictated by: Dictated on workstation # [id number]
[2021-05-16 07:44] LABS: ALBUMIN 3.8 GM/DL (3.2-4.5)
[2021-05-16 07:45] LABS: CALCIUM 9.4 MG/DL (8.5-10.1)
[2021-05-16 07:46] LABS: PROTHROMBIN TIME PATIENT 13.3 SEC (12.2-14.7); TOTAL PROTEIN 7.3 GM/DL (6.4-8.2)
[2021-05-16 07:48] LABS: BILIRUBIN,TOTAL 0.4 MG/DL (0.1-1.0)
[2021-05-16 07:50] LABS: CREATININE SERUM 1.76 MG/DL (0.60-1.30)
[~2021-05-16 09:00] MED LIST changes: -CATHETER FLUSH 10 ML SYR IV PRN; +HEParin (CATH LAB) 2,000 ML IV ONE; +LIDOCAINE 1% INJ 20 ML 20 ML VIAL ONE; -MIDAZOLAM 5 MG/5 ML (VERSED) VIAL ONE; +NS IV 1000 ML 1,000 ML IV SCH; +NS IV 1000 ML 1,000 ML ONE; -REGADENOSON 0.4 MG/5 ML SYR (LEXISCAN) IV ONE; -fentaNYL INJ 100 MCG/2 ML AMP ONE
[2021-05-16] MEDS ORDERED: PATIENT MAY USE OWN MEDS, ALL PO SCH (09:45)
[2021-05-16] MEDS ORDERED: METF-398 PO (09:45)
[2021-05-16] MEDS ORDERED: NS IV 1000 ML 1,000 ML IV SCH (09:45)
--- NOTE | 2021-05-16 09:46 | Conscious Sedation/ASA ---
Conscious Sedation Pre-Proced Time 09:00 ASA Score 3 For ASA 3 and 4: Consider anesthesia and medical clearance. Also, for patients with a history of failed moderate sedation consider anesthesia. Airway Lungs Heart ASA score ASA 1: a normal healthy patient ASA 2: a patient with a mild systemic disease (mid diabetes, controlled hypertension, obesity x ASA 3: a patient with a severe systemic disease that limits activity (angina, COPD, prior Myocardial infarction) ASA 4: a patient with an incapacitating disease that is a constant threat to life (CHF, renal failure) ASA 5: a moribund patient not expected to survive 24 hrs. (ruptured aneurysm) ASA 6: a declared brain- patient whose organs are being harvested. For emergent operations, add the letter E after the classification Mallampati Classification Grade 3 Sedation Plan Analgesia, Amnesia, Plan communicated to team members, Discussed options with patient/fam, Discussed risks with patient/fam The patient is an appropriate candidate to undergo the planned procedure, sedation, and anesthesia. The patient immediately re-assessed prior to indication. FADUMO TALAVERA MD May 16, 2021 09:46
--- NOTE | 2021-05-16 09:46 | Discharge Inst-Post CATH ---
Discharge Inst-CATH/EP Problems Reviewed?: Yes Post Cardiac Cath/EP D/C Inst Follow Up/Plan Appointment with Dr. Pizarro and 2 to 4 weeks <b>CARDIAC CATH/EP PROCEDURE DISCHARGE INSTRUCTIONS</b> ACTIVITY * Go Home directly and rest. * Limit activity of the leg (or wrist if it was used) for 7 days including aerobics, swimming, jogging, bicycling, etc. * Restrict stair-climbing for 7 days if possible, if not, climb up with your non-cath leg, then bring together on the same step. * Avoid lifting, pushing, pulling or excessive movement of the affected extremity for 7 days. * Customary sexual activity may be resumed after 2 days-use caution not to use a position that strains or causes pain to the affected extremity. * No driving for 24 hours. * NO SMOKING. * Avoid straining for bowel movements for 7 days. * Gentle walking on level ground is allowed. * Returning to work will depend on the type of procedure and the results. Your doctor will discuss this with you. CALL YOUR DOCTOR FOR ANY OF THE FOLLOWING: *If bleeding from the puncture site occurs- Apply gentle pressure to site with clean cloth and call your doctor or EMS. * If a knot or lump forms under the skin, increases in size, or causes pain. * If bruising appears to be worsening or moving further down your leg instead of disappearing. * Temperature above 101 F. CARE OF YOUR GROIN INCISION; * Bruising or purple discoloration of the skin near the puncture site is common. * You may shower only, no bathtub bathing for 5 days. Be careful to avoid slipping as your leg may feel stiff. * If a closure device was used on your femoral artery, please see the attached guide regarding care of the device and your leg. * Leave dressing on FOR 24 hours. CARE OF YOUR WRIST INCISION; * Bruising or purple discoloration of the skin near the puncture site is common. * You may shower. * DO NOT submerge wrist. * Leave dressing on FOR 24 hours. FADUMO PIZARRO MD May 16, 2021 09:46
--- NOTE | 2021-05-16 09:50 | Cardiac Cath Report ---
Cardiac Cath Report Physician (s)/Slug Press Operator (s) Physician FADUMO TALAVERA MD Pre-Procedure Diagnosis Pre-Procedure Diagnosis: coronary artery disease, peripheral arterial disease Post-Procedure Note Procedure Start Date: May 16, 2021 Procedure Start Time: 09:46 Name of Procedure: Left heart catheterization Findings/Procedure Note PROCEDURE NOTE: 70 years old gentleman with extensive history of coronary artery disease, multiple intervention in the past, had an abnormal stress test, scheduled for cardiac catheterization possible PTCA. After explaining the procedure to the patient, all pros and cons were explained, all questions were answered. The patient signed the consent and then he was placed on the cardiac catheterization laboratory. Groin was prepped SL fashion local anesthesia was used. Sheath placed in the right femoral artery. Alvin right and left catheter were used to access the coronary system. Pigtail was used to access the left ventricular cavity. Left ventriculogram was not done to limit the amount of exposure to contrast At the end of the procedure the sheath was removed. Closure device was deployed FINDINGS: Hemodynamics LV 124/12, end-diastolic pressure of 12 Aorta 126/61 mean of 74 ANATOMY: Left Main is free of obstructive disease Left Anterior Descending is calcified, stents are patent in the proximal and mid LAD, distally there is moderate disease, did not change compared to the study of 2019 Left Circumflex has multiple stents in the proximal and mid circumflex artery with mild to moderate in-stent restenosis nonobstructive disease, moderate disease distally Right Coronary Artery is moderate in size with moderate stenosis, occlusion at the distal end of the right PDA. Small artery LV Gram was not done, pressure was measured CONCLUSION: 1. Moderate disease in the mid right coronary artery with occlusion of the distal right PDA, small artery not amendable to intervention 2. Patent multiple stents in the proximal and mid LAD and proximal mid circumflex artery with mild to moderate in-stent restenosis and mild to moderate coronary artery disease in the left system nonobstructive disease 3. Normal left ventricular end-diastolic pressure DISCUSSION AND RECOMMENDATION: Continue to maximize medical therapy no intervention is warranted Anesthesia Type: Conscious Sedation Estimated blood loss (mL): 15 ml Contrast Amount: 12 ml Total Radiation Dose: 371 mGy Post-Procedure Diagnosis Post-operative diagnosis: Coronary artery disease Hypertension Hyperlipidemia Diabetes mellitus FADUMO TALAVERA MD May 16, 2021 09:50
== END 2021-05-16 14:50 ==
LOC: CATH 09:00 → SDC 09:59 → CATH 14:50
PROVIDERS: ATTEND Internal Medicine Cardiovascular Disease
DX: I25.10 Atherosclerotic heart disease of native coronary artery without angina pectoris (principal); T82.855A Stenosis of coronary artery stent, initial encounter; I73.9 Peripheral vascular disease, unspecified; I50.9 Heart failure, unspecified; I65.23 Occlusion and stenosis of bilateral carotid arteries; I13.0 Hypertensive heart and chronic kidney disease with heart failure and stage 1 through stage 4 chronic kidney disease, or unspecified chronic kidney disease; J44.9 Chronic obstructive pulmonary disease, unspecified; E78.2 Mixed hyperlipidemia; E11.22 Type 2 diabetes mellitus with diabetic chronic kidney disease; N18.9 Chronic kidney disease, unspecified; F17.210 Nicotine dependence, cigarettes, uncomplicated; Z79.899 Other long term (current) drug therapy; Z79.02 Long term (current) use of antithrombotics/antiplatelets; Z79.4 Long term (current) use of insulin
CPT/HCPCS: 36415; 71045; 80053; 80061; 85027; 85610; 85730; 87081; 93458

== ENCOUNTER → 2021-07-04 | Outpatient (CLI) | payer OTHER ==
[~2021-07-04] MED LIST changes: -HEParin (CATH LAB) 2,000 ML IV ONE; -LIDOCAINE 1% INJ 20 ML 20 ML VIAL ONE; -NS IV 1000 ML 1,000 ML IV SCH; -NS IV 1000 ML 1,000 ML ONE
== END ==
LOC: WOUNDCARE 09:21
PROVIDERS: ATTEND Surgery
DX: I70.243 Atherosclerosis of native arteries of left leg with ulceration of ankle (principal); L97.322 Non-pressure chronic ulcer of left ankle with fat layer exposed; T65.222A Toxic effect of tobacco cigarettes, intentional self-harm, initial encounter; L03.116 Cellulitis of left lower limb; F17.218 Nicotine dependence, cigarettes, with other nicotine-induced disorders
CPT/HCPCS: 99213

== ENCOUNTER → 2021-07-11 | Outpatient (CLI) | payer OTHER | LOC: WOUNDCARE 13:15 | PROVIDERS: ATTEND Surgery | DX: I70.243 Atherosclerosis of native arteries of left leg with ulceration of ankle (principal); I96 Gangrene, not elsewhere classified; L97.322 Non-pressure chronic ulcer of left ankle with fat layer exposed; T65.222A Toxic effect of tobacco cigarettes, intentional self-harm, initial encounter; F17.218 Nicotine dependence, cigarettes, with other nicotine-induced disorders | CPT/HCPCS: 99212 ==

== ENCOUNTER → 2021-07-18 | Outpatient (CLI) | payer OTHER | LOC: WOUNDCARE 12:44 | PROVIDERS: ATTEND Family Medicine | DX: I70.262 Atherosclerosis of native arteries of extremities with gangrene, left leg (principal); L97.322 Non-pressure chronic ulcer of left ankle with fat layer exposed; F17.218 Nicotine dependence, cigarettes, with other nicotine-induced disorders; T65.222A Toxic effect of tobacco cigarettes, intentional self-harm, initial encounter | CPT/HCPCS: 99212 ==

== ENCOUNTER → 2021-07-25 | Outpatient (CLI) | payer OTHER | END | disposition home or self-care (01) | LOC: WOUNDCARE 12:30 | PROVIDERS: ATTEND Family Medicine | DX: E11.52 Type 2 diabetes mellitus with diabetic peripheral angiopathy with gangrene (principal); E11.622 Type 2 diabetes mellitus with other skin ulcer; E11.65 Type 2 diabetes mellitus with hyperglycemia; I70.262 Atherosclerosis of native arteries of extremities with gangrene, left leg; L97.322 Non-pressure chronic ulcer of left ankle with fat layer exposed; T65.222A Toxic effect of tobacco cigarettes, intentional self-harm, initial encounter; F17.218 Nicotine dependence, cigarettes, with other nicotine-induced disorders | CPT/HCPCS: 99212 ==

== ENCOUNTER → 2021-08-01 | Outpatient (CLI) | payer OTHER | LOC: WOUNDCARE 12:34 | PROVIDERS: ATTEND Family Medicine | DX: I70.243 Atherosclerosis of native arteries of left leg with ulceration of ankle (principal); L97.322 Non-pressure chronic ulcer of left ankle with fat layer exposed; T65.222A Toxic effect of tobacco cigarettes, intentional self-harm, initial encounter; E11.622 Type 2 diabetes mellitus with other skin ulcer; E11.65 Type 2 diabetes mellitus with hyperglycemia; E11.52 Type 2 diabetes mellitus with diabetic peripheral angiopathy with gangrene; F17.218 Nicotine dependence, cigarettes, with other nicotine-induced disorders | CPT/HCPCS: 97597 ==

== ENCOUNTER → 2021-08-08 | Outpatient (CLI) | payer OTHER | LOC: WOUNDCARE 12:44 | PROVIDERS: ATTEND Family Medicine | DX: I70.243 Atherosclerosis of native arteries of left leg with ulceration of ankle (principal); L97.322 Non-pressure chronic ulcer of left ankle with fat layer exposed; T65.222A Toxic effect of tobacco cigarettes, intentional self-harm, initial encounter; E11.622 Type 2 diabetes mellitus with other skin ulcer; E11.65 Type 2 diabetes mellitus with hyperglycemia; E11.52 Type 2 diabetes mellitus with diabetic peripheral angiopathy with gangrene; F17.218 Nicotine dependence, cigarettes, with other nicotine-induced disorders | CPT/HCPCS: 97597 ==

== ENCOUNTER → 2021-08-15 | Outpatient (CLI) | payer OTHER | LOC: WOUNDCARE 12:43 | PROVIDERS: ATTEND Family Medicine | DX: I70.243 Atherosclerosis of native arteries of left leg with ulceration of ankle (principal); L97.322 Non-pressure chronic ulcer of left ankle with fat layer exposed; T65.222A Toxic effect of tobacco cigarettes, intentional self-harm, initial encounter; E11.622 Type 2 diabetes mellitus with other skin ulcer; E11.65 Type 2 diabetes mellitus with hyperglycemia; E11.52 Type 2 diabetes mellitus with diabetic peripheral angiopathy with gangrene; F17.218 Nicotine dependence, cigarettes, with other nicotine-induced disorders | CPT/HCPCS: 99213 ==

== ENCOUNTER → 2021-08-22 | Outpatient (CLI) | payer OTHER ==
[~2021-08-22] MED LIST changes: -LEVO500T80 PO; +LEVO500T81 PO; +MONT-40 PO; -MONT10TA32 PO; +TIZA-186 PO; -TIZA4TAB4 PO
== END ==
LOC: WOUNDCARE 12:36
PROVIDERS: ATTEND Family Medicine
DX: I70.243 Atherosclerosis of native arteries of left leg with ulceration of ankle (principal); L97.322 Non-pressure chronic ulcer of left ankle with fat layer exposed; E11.622 Type 2 diabetes mellitus with other skin ulcer; E11.65 Type 2 diabetes mellitus with hyperglycemia; E11.52 Type 2 diabetes mellitus with diabetic peripheral angiopathy with gangrene; T65.222A Toxic effect of tobacco cigarettes, intentional self-harm, initial encounter; F17.218 Nicotine dependence, cigarettes, with other nicotine-induced disorders
CPT/HCPCS: 99212

== ENCOUNTER → 2021-09-05 | Outpatient (CLI) | payer OTHER ==
[~2021-09-05] MED LIST changes: +IPRA3AMP31 INH; +PRED5TAB PO
== END ==
LOC: WOUNDCARE 12:48
PROVIDERS: ATTEND Family Medicine
DX: I70.243 Atherosclerosis of native arteries of left leg with ulceration of ankle (principal); L97.322 Non-pressure chronic ulcer of left ankle with fat layer exposed; E11.622 Type 2 diabetes mellitus with other skin ulcer; E11.65 Type 2 diabetes mellitus with hyperglycemia; E11.52 Type 2 diabetes mellitus with diabetic peripheral angiopathy with gangrene; T65.222A Toxic effect of tobacco cigarettes, intentional self-harm, initial encounter; F17.218 Nicotine dependence, cigarettes, with other nicotine-induced disorders
CPT/HCPCS: 97597

== ENCOUNTER 2021-09-06 21:39 | Inpatient (IN) | payer OTHER, MEDICARE ==
[~2021-09-06] VITALS: Ht 177.8 cm; Wt 88.6 kg
[~2021-09-06 21:39] MED LIST changes: -IPRA3AMP31 INH; -PRED5TAB PO
--- NOTE | 2021-09-06 21:56 | ED General ---
General Chief Complaint: Cough/Cold/Flu Symptoms Stated Complaint: SOB/COUGHING UP BLOOD Source of Information: Patient, EMS Exam Limitations: No Limitations History of Present Illness Date Seen by Provider: Sep 06, 2021 Time Seen by Provider: 21:53 Initial Comments To ER by EMS from home in [place] with reports of shortness of breath and hemoptysis onset this evening. Increased cough from baseline. History of COPD and is oxygen dependent at 2.5 to 4 L per nasal cannula [id number]-xebxi. Continues to smoke 0.5 to 1 pack of cigarettes per day. Follows with [facility] and [facility]. Timing/Duration: 4-6 Hours Severity: Moderate Associated Systoms: Cough Allergies and Home Medications Allergies Coded Allergies: No Known Drug Allergies (Verified , 05/02/08) Patient Home Medication List Home Medication List Reviewed: Yes Albuterol Sulfate (Ventolin Hfa) 18 Gm Hfa.aer.ad, 2 PUFF INH Q4H PRN for SHORTNESS OF BREATH, (Reported) Entered as Reported by: GEORGINA ALVAREZ on 06/11/19 1459 Alogliptin Benzoate (Alogliptin) 12.5 Mg Tablet, 12.5 MG PO DAILY, (Reported) Entered as Reported by: RADHA MACKAY on 05/16/21 0828 Amlodipine Besylate (Amlodipine Besylate) 5 Mg Tablet, 5 MG PO DAILY, (Reported) Entered as Reported by: RADHA MACKAY on 05/16/21 0857 Aspirin (Aspirin EC) 81 Mg Tablet.dr, 81 MG PO DAILY, (Reported) Entered as Reported by: MARLY NAVARRETE on 10/06/17 1348 Atorvastatin Calcium (Lipitor) 40 Mg Tablet, 40 MG PO 1700, (Reported) Entered as Reported by: DESEAN COE on 12/23/18 0731 Budesonide/Formoterol Fumarate (Symbicort 160-4.5 Mcg Inhaler) 10.2 Gm Hfa.aer.ad, 2 PUFF IH BID, (Reported) Entered as Reported by: DESEAN COE on 12/23/18 0731 Carvedilol (Carvedilol) 25 Mg Tablet, 12.5 MG PO BID, (Reported) Entered as Reported by: RADHA MACKAY on 05/16/21 0819 Clopidogrel Bisulfate (Clopidogrel) 75 Mg Tablet, 75 MG PO DAILY, (Reported) Entered as Reported by: GEORGINA ALVAREZ on 05/16/15 1119 Empagliflozin (Jardiance) 25 Mg Tablet, 12.5 MG PO DAILY, (Reported) Entered as Reported by: JIM MCDONALD on 01/19/21 112 Fluticasone Propionate (Flonase Allergy Relief) 9.9 Ml [place].susp, 1-2 SPRAY NS DAILY, (Reported) Entered as Reported by: JIM MCDONALD on 01/19/21 112 Gabapentin (Gabapentin) 100 Mg Capsule, 100 MG PO DAILY, (Reported) Entered as Reported by: GEORGINA ALVAREZ on 05/16/15 111 Hydrochlorothiazide (Hydrochlorothiazide) 25 Mg Tablet, 25 MG PO 1700, (Reported) Entered as Reported by: JIM MCDONALD on 01/19/21 112 Insulin Glargine,Hum.rec.anlog (Lantus Solostar) 100 Unit/1 Ml Insuln.pen, 20 UNITS SQ 1200, (Reported) Entered as Reported by: MARLY NAVARRETE on 10/06/17 1538 Lisinopril (Lisinopril) 40 Mg Tablet, 40 MG PO DAILY, (Reported) Entered as Reported by: MARLY NAVARRETE on 10/06/17 153 Metformin HCl (Metformin HCl) 850 Mg Tablet, 850 MG PO BID WITH MEALS Prescribed by: FADUMO TALAVERA on 05/16/21 0945 Montelukast Sodium (Montelukast Sodium) 10 Mg Tablet, 10 MG PO 1700, (Reported) Entered as Reported by: JIM MCDONALD on 01/19/21 112 Naproxen (Naproxen) 250 Mg Tablet, 250 MG PO BID PRN for PAIN-MILD (1-4), (Reported) Entered as Reported by: JIM MCDONALD on 01/19/21 112 Nitroglycerin (Nitroglycerin) 0.4 Mg Tab.subl, 0.4 MG SL UD PRN for CHEST PAIN, (Reported) Entered as Reported by: JIM MCDONALD on 01/19/21 112 Pantoprazole Sodium (Pantoprazole Sodium) 40 Mg Tablet.dr, 40 MG PO DAILY, (Reported) Entered as Reported by: GEORGINA ALVAREZ on 05/16/15 111 Tamsulosin HCl (Flomax) 0.4 Mg Cap, 0.4 MG PO 1700, (Reported) Entered as Reported by: DESEAN COE on 12/23/18 0731 Tiotropium [place] (Spiriva Respimat 2.5MCG/ACTUATION) 4 Gm Mist.inhal, 2 PUFF IH DAILY, (Reported) Entered as Reported by: JIM MCDONALD on 01/19/21 1126 Review of Systems Review of Systems Constitutional: see HPI EENTM: see HPI Respiratory: see HPI, cough, dyspnea on exertion, hemoptysis Cardiovascular: no symptoms reported Genitourinary: no symptoms reported Musculoskeletal: no symptoms reported Skin: no symptoms reported Psychiatric/Neurological: No Symptoms Reported Hematologic/Lymphatic: No Symptoms Reported Immunological/Allergic: no symptoms reported Past Gajykkk-Vndfah-[place] Hx Immunizations Up To Date Tetanus Booster (TDap): Unknown PED Vaccines UTD: Yes Seasonal Allergies Seasonal Allergies: No Past Medical History Surgeries: Yes (CHEST TUBE INSERTION, heart cathx9 stents) Coronary Stent Respiratory: Yes COPD Currently Using CPAP: No Currently Using BIPAP: No Cardiac: Yes Coronary Artery Disease, High Cholesterol, Hypertension Neurological: No Neuropathy Reproductive Disorders: No Genitourinary: Yes Gastrointestinal: No Hepatitis, Polyps Musculoskeletal: Yes Arthritis Endocrine: Yes Diabetes, Non-Insulin dep HEENT: No (hemmoraging in back of both eyes-pt see specialist for it) Cataract Cancer: No Psychosocial: No Integumentary: No Blood Disorders: No Family Medical History Patient reports no known family medical history. No Pertinent Family Hx Physical Exam Vital Signs Capillary Refill : Height, Weight, BMI Height: 5'11.00" Weight: 225lbs. 0.0oz. 102.534891zj; 62.96 BMI Method:Stated General Appearance: No Apparent Distress, WD/WN Eyes: Bilateral Eye Normal Inspection, Bilateral Eye PERRL, Bilateral Eye EOMI HEENT: PERRL/EOMI, TMs Normal Neck: Full Range of Motion, Normal Inspection Respiratory: No Accessory Muscle Use, No Respiratory Distress, Other (Lung sounds are diminished and without wheezing. He is pigeon chested. Oxygen is 99% on 4 L so this was turned down to 2.5.) Cardiovascular: Regular Rate, Rhythm, Normal Peripheral Pulses Gastrointestinal: Non Tender, Soft Extremity: Normal Capillary Refill, Normal Inspection Neurologic/Psychiatric: Alert, Oriented x3 Skin: Normal Color, Warm/Dry Focused Exam Lactate Level 09/06/21 21:50: Lactic Acid Level Laboratory Tests Test 09/06/21 21:50 Progress/Results/Core Measures Suspected Sepsis SIRS Temperature: Pulse: Respiratory Rate: Laboratory Tests 09/06/21 21:50: White Blood Count 17.9H Blood Pressure / Mean: 09/06/21 21:50: Laboratory Tests 09/06/21 21:50: Creatinine 1.51H, INR Comment 0.9, Platelet Count 285, Total Bilirubin 0.4 Results/Orders Lab Results Laboratory Tests Test 09/06/21 21:50 09/06/21 22:05 Range/Units White Blood Count 17.9 H 4.3-11.0 10^3/uL Red Blood Count 4.02 L 4.30-5.52 10^6/uL Hemoglobin 11.6 L 13.3-17.7 g/dL Hematocrit 35 L 40-54 % Mean Corpuscular Volume 88 80-99 fL Mean Corpuscular Hemoglobin 29 25-34 pg Mean Corpuscular Hemoglobin Concent 33 32-36 g/dL Red Cell Distribution Width 14.4 10.0-14.5 % Platelet Count 285 130-400 10^3/uL Mean Platelet Volume 10.8 9.0-12.2 fL Immature Granulocyte % (Auto) 0 % Neutrophils (%) (Auto) 86 H 42-75 % Lymphocytes (%) (Auto) 5 L 12-44 % Monocytes (%) (Auto) 7 0-12 % Eosinophils (%) (Auto) 2 0-10 % Basophils (%) (Auto) 0 0-10 % Neutrophils # (Auto) 15.4 H 1.8-7.8 10^3/uL Lymphocytes # (Auto) 0.9 L 1.0-4.0 10^3/uL Monocytes # (Auto) 1.2 H 0.0-1.0 10^3/uL Eosinophils # (Auto) 0.3 0.0-0.3 10^3/uL Basophils # (Auto) 0.1 0.0-0.1 10^3/uL Immature Granulocyte # (Auto) 0.1 0.0-0.1 10^3/uL Neutrophils % (Manual) 89 % Lymphocytes % (Manual) 5 % Monocytes % (Manual) 2 % Eosinophils % (Manual) 4 % Blood Morphology Comment NORMAL Prothrombin Time 12.9 12.2-14.7 SEC INR Comment 0.9 0.8-1.4 Activated Partial Thromboplast Time 27 24-35 SEC D-Dimer 0.71 H 0.00-0.49 UG/ML Sodium Level 138 135-145 MMOL/L Potassium Level 4.2 3.6-5.0 MMOL/L Chloride Level 101 98-107 MMOL/L Carbon Dioxide Level 24 21-32 MMOL/L Anion Gap 13 5-14 MMOL/L Blood Urea Nitrogen 28 H 7-18 MG/DL Creatinine 1.51 H 0.60-1.30 MG/DL Estimat Glomerular Filtration Rate 46 BUN/Creatinine Ratio 19 Glucose Level 263 H 70-105 MG/DL Calcium Level 9.1 8.5-10.1 MG/DL Corrected Calcium 9.7 8.5-10.1 MG/DL Total Bilirubin 0.4 0.1-1.0 MG/DL Aspartate Amino Transf (AST/SGOT) 8 5-34 U/L Alanine Aminotransferase (ALT/SGPT) 9 0-55 U/L Alkaline Phosphatase 67 40-136 U/L B-Type Natriuretic Peptide 157.8 H <100.0 PG/ML Total Protein 6.7 6.4-8.2 GM/DL Albumin 3.3 3.2-4.5 GM/DL SARS-CoV-2 RNA (RT-PCR) Not Detected Not Detecte Blood Gas Puncture Site RIGHT RADIAL Blood Gas Patient Temperature 99.1 Arterial Blood pH 7.38 7.37-7.43 Arterial Blood Partial Pressure CO2 48 H 35-45 MMHG Arterial Blood Partial Pressure O2 101 H 79-93 MMHG Arterial Blood HCO3 28 H 23-27 MMOL/L Arterial Blood Total CO2 29.2 21.0-31.0 MMOL/L Arterial Blood Oxygen Saturation 96 94-100 % Arterial Blood Base Excess 3.1 H -2.5-2.5 MMOL/L Howie Test YES-POS Blood Gas Ventilator Setting NO Blood Gas Inspired Oxygen 2L My Orders Orders - RICHIE LOFTON APRN Protime With Inr (09/06/21 21:41) Cbc With Automated Diff (09/06/21 21:41) Comprehensive Metabolic Panel (09/06/21 21:41) Ekg Tracing (09/06/21 21:41) Chest 1 View, Ap/Pa Only (09/06/21 21:41) Ed Iv/Invasive Line Start (09/06/21 21:41) Bnp [place] (09/06/21 21:41) Covid 19 Inhouse Test (09/06/21 21:41) Fibrin Degradation Products (09/06/21 21:42) Manual Differential (09/06/21 21:50) Arterial Blood Gas (09/06/21 22:05) Blood Culture (09/06/21 22:33) Sputum Culture (09/06/21 22:33) Vital Signs Adult Sepsis Patie Q15M (09/06/21 22:33) O2 (09/06/21 22:33) Remove Rings In Anticipation O (09/06/21 22:33) Lactic Acid Analyzer (09/06/21 22:33) Cefepime Injection (Maxipime Injection) (09/06/21 22:45) Methylprednisolone Sod Succ (Solu-Medrol (09/06/21 22:45) Albuterol/Ipra Inhalation Soln (Duoneb I (09/06/21 22:45) Svn Small Volume Nebulizer (09/06/21 22:33) Partial Thromboplastin Time (09/06/21 21:50) Medications Given in ED Current Medications Medications Dose Ordered Sig/[place] Route Start Time Stop Time Status Last Admin Dose Admin Albuterol/ Ipratropium 3 ml ONCE ONCE INH 09/06/21 22:45 09/06/21 22:46 DC 09/06/21 22:52 3 ML Cefepime HCl 1000 mg/Sodium Chloride 50 ml @ 100 mls/hr ONCE ONCE IV 09/06/21 22:45 09/06/21 23:14 09/06/21 22:52 100 MLS/HR Methylprednisolone Sodium Succinate 125 mg ONCE ONCE IVP 09/06/21 22:45 09/06/21 22:46 DC 09/06/21 22:51 125 MG Vital Signs/I&O Capillary Refill : Departure Communication (Admissions) Family Conversation 2310-spoke with Dr. Bacon, will admit on pneumonia protocol. Patient is agreeable with this plan. NAME: VINCENT JASSO [facility] REC#: [id number] PT STATUS: REG ER : 1950 PHYSICIAN: RICHIE LOFTON APRN ADMIT DATE: 09/06/21/ER Draft Date of Exam:09/06/21 CHEST 1 VIEW, AP/PA ONLY EXAMINATION: Chest 1 view. HISTORY: Shortness of breath. COMPARISON: 05/16/2021. FINDINGS: Patchy opacities are scattered throughout the right lung and in the left perihilar and basilar region. No large pleural effusion or pneumothorax. Elevated right hemidiaphragm is stable. The cardiac silhouette is stable. IMPRESSION: Scattered patchy opacities throughout the right lung and in the left perihilar and basilar region. Findings appear somewhat increased compared to the prior exam and may represent chronic fibrotic changes and/or atelectasis. A component of pneumonia is not excluded. Recommend continued follow-up, as indicated. Dictated on workstation # [id number] Dict: 09/06/212224 Trans: 09/06/212229 [facility] [id number] Interpreted by: ASHUTOSH KEN DO Electronically signed by: Impression Primary Impression: Pneumonia Additional Impression: COPD exacerbation Disposition: ADMITTED INPATIENT Condition: Stable Admissions Decision to Admit Reason: Admit from ER (General) Decision to Admit/Date: Sep 06, 2021 Time/Decision to Admit Time: 23:10 Departure-Patient Inst. Referrals: [facility] (PCP) Primary Care Physician MIKEY ZAZUETA APRN (Family) Primary Care Physician RICHIE LOFTON APRN Sep 06, 2021 21:56
[2021-09-06 22:03] LABS: BASOPHILS # (AUTO) 0.1 10^3/uL (0.0-0.1); BASOPHILS % (AUTO) 0 % (0-10); EOSINOPHILS # (AUTO) 0.3 10^3/uL (0.0-0.3); EOSINOPHILS % (AUTO) 2 % (0-10); HEMATOCRIT 35 % (40-54); HEMOGLOBIN 11.6 g/dL (13.3-17.7); LYMPHOCYTES # (AUTO) 0.9 10^3/uL (1.0-4.0); LYMPHOCYTES % (AUTO) 5 % (12-44); MEAN CORPUSCULAR HEMOGLOBIN 29 pg (25-34); MEAN CORPUSCULAR HGB CONC 33 g/dL (32-36); MEAN CORPUSCULAR VOLUME 88 fL (80-99); MEAN PLATELET VOLUME 10.8 fL (9.0-12.2); MONOCYTES # (AUTO) 1.2 10^3/uL (0.0-1.0); MONOCYTES % (AUTO) 7 % (0-12); NEUTROPHILS # (AUTO) 15.4 10^3/uL (1.8-7.8); NEUTROPHILS % (AUTO) 86 % (42-75); PLATELET COUNT 285 10^3/uL (130-400); WHITE BLOOD COUNT 17.9 10^3/uL (4.3-11.0)
[2021-09-06 22:11] LABS: ABG BASE EXCESS 3.1 MMOL/L (-2.5-2.5); ABG OXYGEN SATURATION 96 % (94-100); ABG PCO2 48 MMHG (35-45); ABG PH 7.38 (7.37-7.43); ABG PO2 101 MMHG (79-93); ABG TCO2 29.2 MMOL/L (21.0-31.0)
[2021-09-06 22:22] LABS: ALLENS TEST YES-POS; INSPIRED O2 2L; PATIENT TEMP 99.1; VENTILATOR NO
[2021-09-06 22:23] LABS: EOSINOPHILS % (MANUAL) 4 %; FIBRIN DEGRADATION PRODUCTS 0.71 UG/ML (0.00-0.49); INR 0.9 (0.8-1.4); LYMPHOCYTES % (MANUAL) 5 %; MONOCYTES % (MANUAL) 2 %; NEUTROPHILS % (MANUAL) 89 %; PROTHROMBIN TIME PATIENT 12.9 SEC (12.2-14.7); RBC MORPH NORMAL
[2021-09-06 22:28] LABS: ALBUMIN 3.3 GM/DL (3.2-4.5); POTASSIUM 4.2 MMOL/L (3.6-5.0)
[2021-09-06 22:29] LABS: CALCIUM 9.1 MG/DL (8.5-10.1)
[2021-09-06 22:30] LABS: TOTAL PROTEIN 6.7 GM/DL (6.4-8.2)
--- NOTE | 2021-09-06 22:30 | Diagnostic Imaging Report ---
EXAMINATION: Chest 1 view. HISTORY: Shortness of breath. COMPARISON: 05/16/2021. FINDINGS: Patchy opacities are scattered throughout the right lung and in the left perihilar and basilar region. No large pleural effusion or pneumothorax. Elevated right hemidiaphragm is stable. The cardiac silhouette is stable. IMPRESSION: Scattered patchy opacities throughout the right lung and in the left perihilar and basilar region. Findings appear somewhat increased compared to the prior exam and may represent chronic fibrotic changes and/or atelectasis. A component of pneumonia is not excluded. Recommend continued follow-up, as indicated. Dictated by: Dictated on workstation # [id number]
[2021-09-06 22:32] LABS: BILIRUBIN,TOTAL 0.4 MG/DL (0.1-1.0)
[2021-09-06 22:34] LABS: CREATININE SERUM 1.51 MG/DL (0.60-1.30)
[2021-09-06] MEDS ORDERED: RT-ALBUTEROL/IPRATROPIUM 3 ML (DUONEB) VIAL INH ONE (22:45)
[2021-09-06] MEDS ORDERED: CEFEPIME INJECTION 1,000 MG in NS (IVPB) 50 ML IV ONE (22:45)
[2021-09-06] MEDS ORDERED: methylPREDNISolone 125 MG (Solu-MEDROL) VIAL IVP ONE (22:45)
[2021-09-06 23:59] VITALS: BP 152/99
[2021-09-07] MEDS ORDERED: LACTATED RINGERS 1,000 ML IV ONE (00:06)
[2021-09-07] MEDS ORDERED: ONDANSETRON 4 MG/2 ML (SDV) Z0FRAN IV PRN (00:15)
[2021-09-07] MEDS ORDERED: APAP 300 MG/CODEINE 30 MG (TYLENOL #3) TAB PO PRN (00:15)
[2021-09-07] MEDS: LACTATED RINGERS 1,000 ML IV SCH ×2 (00:43→10:20)
[2021-09-07] MEDS ORDERED: RT-ALBUTEROL/IPRATROPIUM 3 ML (DUONEB) VIAL ONE (01:31)
[2021-09-07] MEDS: RT-ALBUTEROL/IPRATROPIUM 3 ML (DUONEB) VIAL INH PRN (01:34)
[2021-09-07 04:00] VITALS: BP 120/52
[2021-09-07 05:23] LABS: BASOPHILS # (AUTO) 0.1 10^3/uL (0.0-0.1); BASOPHILS % (AUTO) 1 % (0-10); EOSINOPHILS % (AUTO) 0 % (0-10); HEMATOCRIT 35 % (40-54); HEMOGLOBIN 11.2 g/dL (13.3-17.7); LYMPHOCYTES # (AUTO) 0.5 10^3/uL (1.0-4.0); LYMPHOCYTES % (AUTO) 3 % (12-44); MEAN CORPUSCULAR HEMOGLOBIN 28 pg (25-34); MEAN CORPUSCULAR HGB CONC 32 g/dL (32-36); MEAN CORPUSCULAR VOLUME 89 fL (80-99); MEAN PLATELET VOLUME 11.1 fL (9.0-12.2); MONOCYTES # (AUTO) 0.2 10^3/uL (0.0-1.0); MONOCYTES % (AUTO) 1 % (0-12); NEUTROPHILS # (AUTO) 16.4 10^3/uL (1.8-7.8); NEUTROPHILS % (AUTO) 95 % (42-75); PLATELET COUNT 286 10^3/uL (130-400); WHITE BLOOD COUNT 17.3 10^3/uL (4.3-11.0)
[2021-09-07 05:33] LABS: POTASSIUM 4.6 MMOL/L (3.6-5.0)
[2021-09-07 05:35] LABS: CALCIUM 9.1 MG/DL (8.5-10.1)
[2021-09-07 05:39] LABS: CREATININE SERUM 1.65 MG/DL (0.60-1.30)
[2021-09-07] MEDS: inSUlin ASPART (NovoLOG) 1 UNIT/0.01 ML (CHARGE PER UNIT) SC SCH ×4 (05:48→20:29)
[2021-09-07] MEDS ORDERED: CEFEPIME 1,000 MG/NS 50 ML IVPB IV SCH ×2 (06:00)
[2021-09-07 08:00] VITALS: BP 159/74
[2021-09-07] MEDS: RT-ALBUTEROL/IPRATROPIUM 3 ML (DUONEB) VIAL INH SCH ×3 (09:13→21:10)
[2021-09-07] MEDS: RT-BUDESONIDE NEBS 0.5 MG/2ML (PULMICORT) AMP INH SCH ×2 (09:13→21:10)
[2021-09-07] MEDS ORDERED: guaiFENesin/DM (ROBITUSSIN DM) 10 ML UDC PO PRN (10:00)
[2021-09-07 11:50] VITALS: BP 134/90
--- NOTE | 2021-09-07 12:20 | History & Physical-Hospitalist ---
ABENA BHATTI 09/07/21 1220: History of Present Illness HPI/Chief Complaint CC: Productive cough HPI: Patient woke up yesterday morning with a dry cough with associated chest pain. The cough progressed throughout the day. In the afternoon, patient woke up from a nap in his recliner and things started getting a lot worse. He began coughing up bloody mucous. [place] like he was about to "cough up a lung." Went to the [place] emergency department and out of concern for a pulmonary embolism he was transferred here. He was admitted to [facility] 1 year, 3 months ago for pneumonia. Chest x-ray displayed pneumonia. He received breathing treatments and is doing a little better. He denies any fevers or sinus congestion. Congestion is limited to his chest. Wears oxygen at home 2.5L via [place] 21/04. Does not use CPAP. Source: patient Date Seen 09/07/21 Time Seen by a Provider: 10:45 Attending Physician Deyanira Bacon MD [facility] Center[facility] Referring Physician Date of Admission Sep 06, 2021 at 22:53 Home Medications & Allergies Home Medications Reviewed patient Home Medication Reconciliation performed by pharmacy medication reconciliations forklift technician and/or nursing. Patients Allergies have been reviewed. Allergies Allergies Coded Allergies liraglutide (Verified Allergy, Unknown, 09/06/21) Past Chfhmre-Kgpbzn-Jkolvl Hx Patient Social History Marrital Status: Employed/Student: unemployed Tobacco Use?: Yes Tobacco type used: Cigarettes Smoking Status: Current Everyday Smoker Substance use?: No Alcohol Use?: No Pt feels they are or have been: No Immunizations Up To Date Date of Influenza Vaccine: Jul 08, 2021 First/Initial COVID19 Vaccinat: NOVEMBER 2020, [employer] Tetanus Booster (TDap): Unknown Hepatitis A: No Hepatitis B: No PED Vaccines UTD: Yes Date of Pneumonia Vaccine: Jul 25, 2017 Seasonal Allergies Seasonal Allergies: No Current Status Advance Directives: No Communicates: Verbally Primary Language: South Korean Preferred Spoken Language: South Korean Is interpretation needed?: No Past Medical History Surgeries: Cardiac, Coronary Stent (9 stents) COPD Currently Using CPAP: No Currently Using BIPAP: No Chronic Edema/Swelling, Coronary Artery Disease, Heart Attack, High Cholesterol, Hypertension Neuropathy Hepatitis, Polyps Arthritis, Chronic Back Pain Diabetes, Non-Insulin dep Cataract Blood Disorders: No Family Medical History Patient reports no known family medical history. No Pertinent Family Hx Review of Systems Constitutional: No chills, No fever Respiratory: cough, dyspnea on exertion, short of breath Cardiovascular: chest pain, edema; No palpitations; vascular heart diseas Gastrointestinal: no symptoms reported Musculoskeletal: see HPI Skin: no symptoms reported Psychiatric/Neurological: Denies Headache Physical Exam Physical Exam Vital Signs Vital Signs - First Documented 09/06/21 21:40 Temp 37.2 Pulse 92 Resp 22 B/P (MAP) 173/77 (109) Pulse Ox 93 Capillary Refill : Less Than 3 Seconds Height, Weight, BMI Height: 5'11.00" Weight: 225lbs. 0.0oz. 102.866299tk; 28.02 BMI Method:Stated General Appearance: No Apparent Distress Neck: Normal Inspection Respiratory: Chest Non Tender, No Accessory Muscle Use, No Respiratory Distress, Rhonci Cardiovascular: Regular Rate, Rhythm, No Murmur Gastrointestinal: Normal Bowel Sounds, Non Tender, Soft Extremity: Non Tender, Pedal Edema Neurologic/Psychiatric: Normal Mood/Affect Skin: Normal Color, Warm/Dry Results Results/Procedures Labs Laboratory Tests 09/06/21 21:50 09/07/21 04:58 Patient resulted labs reviewed. Imaging: Reviewed Imaging Films, Reviewed Imaging Report Imaging Chest x-ray Meds Cefepime, budesonide, aspart, albuterol/ipratropium, ondansetron, acetaminophen/codeine, lactated ringer's Assessment/Plan Admission Diagnosis Pneumonia Admission Status: Inpatient Order (span 2 midnights) Reason for Inpatient Admission: Increased O2 requirements from baseline. COPD exacerbation. Assessment and Plan Pneumonia, COPD * Continue cefepime, budesonide, duoneb, robitussin. Daily CBC and CMP. Diabetes, type II * Basal/bolus insulin with sliding scale CAD, PVD, left foot ulcer * Start OP aspirin and plavix. Keep wound covered, clean, and dry. 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 Basal/bolus insulin + sliding scale. (2) Pneumonia Onset Date: ~ 09/06/2021 Status: Acute Assessment & Plan: Continue cefepime, robitussin. Daily CBC and CMP. Aerobika to clear out mucus. Qualifiers: Pneumonia type: due to unspecified organism Laterality: bilateral Lung location: upper lobe of lung Qualified Codes: J18.9 - Pneumonia, unspecified organism (3) CAD (coronary artery disease) Onset Date: Unknown Status: Chronic Assessment & Plan: Start OP aspirin and plavix. Qualifiers: Coronary Disease-Associated Artery/Lesion type: [place] artery [place] vs. transplanted heart: [place] heart Associated angina: with unspecified form of angina Qualified Codes: I25.119 - Atherosclerotic heart disease of [place] coronary artery with unspecified angina pectoris (4) COPD (chronic obstructive pulmonary disease) Onset Date: Unknown Status: Chronic Assessment & Plan: Continue budesonide, duoneb Qualifiers: COPD type: COPD with acute lower respiratory infection Qualified Codes: J44.0 - Chronic obstructive pulmonary disease with (acute) lower respiratory infection DEYANIRA BACON MD 09/07/21 1645: History of Present Illness Source: patient Past Kqwqcsa-Mtvhcf-Ngkpnz Hx Family Medical History Patient reports no known family medical history. Review of Systems Constitutional: no symptoms reported; No chills, No fever Respiratory: cough, dyspnea on exertion; No orthopnea; short of breath Cardiovascular: chest pain; No palpitations Gastrointestinal: no symptoms reported; No abdominal pain, No constipation, No diarrhea, No nausea, No vomiting Genitourinary: no symptoms reported; No dysuria, No frequency, No hematuria Musculoskeletal: back pain; No joint pain, No muscle pain Skin: no symptoms reported; No lesions, No rash Psychiatric/Neurological: Denies Headache; Weakness Physical Exam Physical Exam General Appearance: No Apparent Distress, WD/WN HEENT: PERRL/EOMI Neck: Full Range of Motion, Normal Inspection Respiratory: Chest Non Tender, No Accessory Muscle Use, No Respiratory Distress, Wheezing Cardiovascular: No Edema, No Murmur Gastrointestinal: Normal Bowel Sounds, Non Tender, Soft Extremity: Pedal Edema (2+ edema equal bilaterally) Neurologic/Psychiatric: Alert, Oriented x3, No Motor/Sensory Deficits, Normal Mood/Affect Skin: Normal Color, Warm/Dry Lymphatic: No Adenopathy Assessment/Plan Admission Diagnosis Admission Status: Inpatient Order (span 2 midnights) Reason for Inpatient Admission: requiring increased oxygen and IV antibiotics Assessment and Plan Agree with above in addition: Acute on Chronic Renal Dz: Will monitor with gentle hydration Waiting on home med rec to start home meds Supervisory-Addendum Brief Verification & Attestation Participated in pt care: history, physical Personally performed: exam, history Care discussed with: Medical Student Procedures: n/a Verification and Attestation of Medical Student E/M Service A medical student performed and documented this service in my presence. I reviewed and verified all information documented by the medical student and made modifications to such information, when appropriate. I personally performed the physical exam and medical decision making. Deyanira Bacon, Sep 07, 2021,17:35 ABENA BHATTI Sep 07, 2021 12:20 DEYANIRA BACON MD Sep 07, 2021 17:35
[2021-09-07] MEDS ORDERED: AMLO-251 PO ×2 (12:55)
[2021-09-07] MEDS: CEFEPIME 1,000 MG/NS 50 ML IVPB IV SCH ×4 (15:05→21:19)
[2021-09-07 16:00] VITALS: BP 151/70
[2021-09-07] MEDS ORDERED: inSUlin ASPART (NovoLOG) 1 UNIT/0.01 ML (CHARGE PER UNIT) SC ONE (17:30)
[2021-09-07 20:00] VITALS: BP 143/62
[2021-09-08] VITALS: BP 140/62
[2021-09-08] MEDS: RT-ALBUTEROL/IPRATROPIUM 3 ML (DUONEB) VIAL INH SCH ×4 (02:08→20:28)
[2021-09-08 04:00] VITALS: BP 157/68
[2021-09-08 04:40] LABS: BASOPHILS # (AUTO) 0.1 10^3/uL (0.0-0.1); BASOPHILS % (AUTO) 0 % (0-10); EOSINOPHILS # (AUTO) 0.1 10^3/uL (0.0-0.3); EOSINOPHILS % (AUTO) 1 % (0-10); HEMATOCRIT 33 % (40-54); HEMOGLOBIN 10.4 g/dL (13.3-17.7); LYMPHOCYTES # (AUTO) 1.6 10^3/uL (1.0-4.0); LYMPHOCYTES % (AUTO) 9 % (12-44); MEAN CORPUSCULAR HEMOGLOBIN 28 pg (25-34); MEAN CORPUSCULAR HGB CONC 32 g/dL (32-36); MEAN CORPUSCULAR VOLUME 88 fL (80-99); MEAN PLATELET VOLUME 11.2 fL (9.0-12.2); MONOCYTES # (AUTO) 1.5 10^3/uL (0.0-1.0); MONOCYTES % (AUTO) 8 % (0-12); NEUTROPHILS # (AUTO) 15.4 10^3/uL (1.8-7.8); NEUTROPHILS % (AUTO) 82 % (42-75); PLATELET COUNT 277 10^3/uL (130-400); WHITE BLOOD COUNT 18.8 10^3/uL (4.3-11.0)
[2021-09-08 04:52] LABS: ALBUMIN 3.1 GM/DL (3.2-4.5)
[2021-09-08 04:53] LABS: POTASSIUM 4.3 MMOL/L (3.6-5.0)
[2021-09-08 04:54] LABS: CALCIUM 8.8 MG/DL (8.5-10.1)
[2021-09-08 04:55] LABS: TOTAL PROTEIN 6.3 GM/DL (6.4-8.2)
[2021-09-08 04:57] LABS: BILIRUBIN,TOTAL 0.2 MG/DL (0.1-1.0)
[2021-09-08 04:59] LABS: CREATININE SERUM 2.16 MG/DL (0.60-1.30)
[2021-09-08] MEDS: CEFEPIME 1,000 MG/NS 50 ML IVPB IV SCH ×6 (06:22→21:10)
[2021-09-08] MEDS: inSUlin ASPART (NovoLOG) 1 UNIT/0.01 ML (CHARGE PER UNIT) SC SCH ×3 (06:22→19:00)
[2021-09-08 08:26] VITALS: BP 142/62
[2021-09-08] MEDS: RT-BUDESONIDE NEBS 0.5 MG/2ML (PULMICORT) AMP INH SCH (08:43)
--- NOTE | 2021-09-08 10:07 | Progress Note - Hospitalist ---
Subjective HPI/CC On Admission Date Seen by Provider: Sep 08, 2021 Time Seen by Provider: 07:30 CC: Productive cough HPI: Patient woke up yesterday morning with a dry cough with associated chest pain. The cough progressed throughout the day. In the afternoon, patient woke up from a nap in his recliner and things started getting a lot worse. He began coughing up bloody mucous. [place] like he was about to "cough up a lung." Went to the [place] emergency department and out of concern for a pulmonary embolism he was transferred here. He was admitted to [facility] 1 year, 3 months ago for pneumonia. Chest x-ray displayed pneumonia. He received breathing treatments and is doing a little better. He denies any fevers or sinus congestion. Congestion is limited to his chest. Wears oxygen at home 2.5L via [place] 21/04. Does not use CPAP. Subjective/Events-last exam Patient denies shortness of breath at rest continuing to cough up small volume dark red blood denies chills fever or chest pain. Focused Exam Lactate Level 09/06/21 21:50: Lactic Acid Level 0.78 Objective Exam Vital Signs Vital Signs Date Time Temp Pulse Resp B/P (MAP) Pulse Ox O2 Delivery O2 Flow Rate FiO2 09/08/21 09:00 92 Nasal Cannula 4.00 09/08/21 08:26 36.5 76 24 142/62 (88) Capillary Refill : Less Than 3 Seconds General Appearance: No Apparent Distress Respiratory: Chest Non Tender, No Accessory Muscle Use, No Respiratory Distress, Other (Coarse breath sounds throughout no focal consolidative findings mild expiratory wheeze on forced expiration.) Cardiovascular: Regular Rate, Rhythm, No Edema, No Gallop, No Murmur Gastrointestinal: Normal Bowel Sounds, No Organomegaly, No Pulsatile Mass, Non Tender, Soft Results/Procedures Lab Laboratory Tests 09/08/21 03:49 Patient resulted labs reviewed. 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 Basal/bolus insulin + sliding scale.Diabetic control poor will be increasing basal bolus therapy. We will be holding other home oral hypoglycemic medications for now secondary to acute kidney injury. (2) Pneumonia Onset Date: ~ 09/06/2021 Status: Acute Assessment & Plan: Continue cefepime, robitussin. Daily CBC and CMP. Aerobika to clear out mucus. Qualifiers: Pneumonia type: due to unspecified organism Laterality: bilateral Lung location: upper lobe of lung Qualified Codes: J18.9 - Pneumonia, unspecified organism (3) CAD (coronary artery disease) Onset Date: Unknown Status: Chronic Assessment & Plan: Start OP aspirin and plavix. Qualifiers: Coronary Disease-Associated Artery/Lesion type: [place] artery [place] vs. transplanted heart: [place] heart Associated angina: with unspecified form of angina Qualified Codes: I25.119 - Atherosclerotic heart disease of [place] coronary artery with unspecified angina pectoris (4) COPD (chronic obstructive pulmonary disease) Onset Date: Unknown Status: Chronic Assessment & Plan: Continue budesonide, duoneb Qualifiers: COPD type: COPD with acute lower respiratory infection Qualified Codes: J44.0 - Chronic obstructive pulmonary disease with (acute) lower respiratory infection LAYNE PELLETIER MD Sep 08, 2021 10:07
[2021-09-08 12:16] VITALS: BP 105/94
[2021-09-08 16:00] VITALS: BP 134/69
[2021-09-08 20:00] VITALS: BP 167/68
[2021-09-09] VITALS: BP 151/72
[2021-09-09] MEDS: RT-ALBUTEROL/IPRATROPIUM 3 ML (DUONEB) VIAL INH PRN (01:07)
[2021-09-09] MEDS: RT-ALBUTEROL/IPRATROPIUM 3 ML (DUONEB) VIAL INH SCH ×4 (02:49→20:58)
[2021-09-09 04:00] VITALS: BP 141/61
[2021-09-09 05:07] LABS: POTASSIUM 4.7 MMOL/L (3.6-5.0)
[2021-09-09 05:08] LABS: CALCIUM 8.7 MG/DL (8.5-10.1)
[2021-09-09 05:12] LABS: CREATININE SERUM 1.69 MG/DL (0.60-1.30)
[2021-09-09] MEDS: CEFEPIME 1,000 MG/NS 50 ML IVPB IV SCH ×6 (05:23→22:11)
[2021-09-09] MEDS: RT-BUDESONIDE NEBS 0.5 MG/2ML (PULMICORT) AMP INH SCH ×2 (07:42→20:58)
[2021-09-09] MEDS: UMECLIDINIUM BROMIDE (INCRUSE ELLIPTA) 7'S IH SCH (07:42)
[2021-09-09 08:00] VITALS: BP 145/63
[2021-09-09] MEDS: inSUlin ASPART (NovoLOG) 1 UNIT/0.01 ML (CHARGE PER UNIT) SC SCH ×3 (09:16→17:00)
[2021-09-09 12:00] VITALS: BP 150/66
--- NOTE | 2021-09-09 12:09 | Progress Note - Hospitalist ---
Subjective HPI/CC On Admission Date Seen by Provider: Sep 09, 2021 Time Seen by Provider: 11:15 CC: Productive cough HPI: Patient woke up yesterday morning with a dry cough with associated chest pain. The cough progressed throughout the day. In the afternoon, patient woke up from a nap in his recliner and things started getting a lot worse. He began coughing up bloody mucous. [place] like he was about to "cough up a lung." Went to the [place] emergency department and out of concern for a pulmonary embolism he was transferred here. He was admitted to [facility] 1 year, 3 months ago for pneumonia. Chest x-ray displayed pneumonia. He received breathing treatments and is doing a little better. He denies any fevers or sinus congestion. Congestion is limited to his chest. Wears oxygen at home 2.5L via [place] 21/04. Does not use CPAP. Subjective/Events-last exam Patient did not feel like eating breakfast this morning so the nurse held his insulin. He denies nausea or abdominal pain. He said no night sweats chills or fever still has small volume hemoptysis unchanged. He denies chest pain. Focused Exam Lactate Level 09/06/21 21:50: Lactic Acid Level 0.78 Objective Exam Vital Signs Vital Signs Date Time Temp Pulse Resp B/P (MAP) Pulse Ox O2 Delivery O2 Flow Rate FiO2 09/09/21 09:12 95 Nasal Cannula 4.00 09/09/21 08:00 37.7 89 26 145/63 (90) Capillary Refill : Less Than 3 Seconds General Appearance: No Apparent Distress Respiratory: No Accessory Muscle Use, No Respiratory Distress, Other (Decreased breath sounds right base compared to left with rales coarse breath sounds throughout no wheezing with regular respiration) Cardiovascular: Regular Rate, Rhythm, No Gallop, No Murmur Results/Procedures Lab Laboratory Tests 09/09/21 04:38 Patient resulted labs reviewed. 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 Basal/bolus insulin + sliding scale.Diabetic control poor will be increasing basal bolus therapy. We will be holding other home oral hypoglycemic medications for now secondary to acute kidney injury. (2) Pneumonia Onset Date: ~ 09/06/2021 Status: Acute Assessment & Plan: Continue cefepime, robitussin. Daily CBC and CMP. Aerobika to clear out mucus. Qualifiers: Pneumonia type: due to unspecified organism Laterality: bilateral Lung location: upper lobe of lung Qualified Codes: J18.9 - Pneumonia, unspecified organism (3) CAD (coronary artery disease) Onset Date: Unknown Status: Chronic Assessment & Plan: 09/09: Stable little change clinically still having small- volume hemoptysis continue antibiotics and bronchodilator therapy. Acute kidney injury improved creatinine down to 1.6. As p.o. intake has been a little erratic we will not make any basal bolus insulin changes even though blood sugar control is not ideal. Risk of hypoglycemia outweighs potential benefit of tighter control at this time. Ultimately patient will likely need bronchoscopy considering ongoing hemoptysis and tobaccoism history. Qualifiers: Coronary Disease-Associated Artery/Lesion type: [place] artery [place] vs. transplanted heart: [place] heart Associated angina: with unspecified form of angina Qualified Codes: I25.119 - Atherosclerotic heart disease of [place] coronary artery with unspecified angina pectoris (4) COPD (chronic obstructive pulmonary disease) Onset Date: Unknown Status: Chronic Assessment & Plan: Continue budesonide, duoneb Qualifiers: COPD type: COPD with acute lower respiratory infection Qualified Codes: J44.0 - Chronic obstructive pulmonary disease with (acute) lower respiratory infection LAYNE PELLETIER MD Sep 09, 2021 12:09
[2021-09-09 16:00] VITALS: BP 161/71
[2021-09-09 20:00] VITALS: BP 141/54
[2021-09-10] VITALS: BP 144/60
[2021-09-10] MEDS: RT-ALBUTEROL/IPRATROPIUM 3 ML (DUONEB) VIAL INH SCH ×4 (03:10→21:30)
[2021-09-10 04:00] VITALS: BP 130/57
[2021-09-10 05:07] LABS: BASOPHILS # (AUTO) 0.1 10^3/uL (0.0-0.1); BASOPHILS % (AUTO) 1 % (0-10); EOSINOPHILS # (AUTO) 0.3 10^3/uL (0.0-0.3); EOSINOPHILS % (AUTO) 2 % (0-10); HEMATOCRIT 33 % (40-54); HEMOGLOBIN 10.4 g/dL (13.3-17.7); LYMPHOCYTES # (AUTO) 0.9 10^3/uL (1.0-4.0); LYMPHOCYTES % (AUTO) 7 % (12-44); MEAN CORPUSCULAR HEMOGLOBIN 28 pg (25-34); MEAN CORPUSCULAR HGB CONC 32 g/dL (32-36); MEAN CORPUSCULAR VOLUME 88 fL (80-99); MEAN PLATELET VOLUME 10.7 fL (9.0-12.2); MONOCYTES # (AUTO) 1.7 10^3/uL (0.0-1.0); MONOCYTES % (AUTO) 13 % (0-12); NEUTROPHILS # (AUTO) 9.6 10^3/uL (1.8-7.8); NEUTROPHILS % (AUTO) 77 % (42-75); PLATELET COUNT 261 10^3/uL (130-400); WHITE BLOOD COUNT 12.6 10^3/uL (4.3-11.0)
[2021-09-10 05:23] LABS: POTASSIUM 4.6 MMOL/L (3.6-5.0)
[2021-09-10 05:28] LABS: CREATININE SERUM 1.45 MG/DL (0.60-1.30)
[2021-09-10] MEDS: CEFEPIME 1,000 MG/NS 50 ML IVPB IV SCH ×6 (06:15→21:02)
[2021-09-10] MEDS: UMECLIDINIUM BROMIDE (INCRUSE ELLIPTA) 7'S IH SCH (07:37)
[2021-09-10 07:52] VITALS: BP 154/61
[2021-09-10] MEDS: inSUlin ASPART (NovoLOG) 1 UNIT/0.01 ML (CHARGE PER UNIT) SC SCH ×3 (08:19→17:29)
[2021-09-10 12:00] VITALS: BP 114/62
[2021-09-10] MEDS: RT-ALBUTEROL/IPRATROPIUM 3 ML (DUONEB) VIAL INH PRN (12:15)
[2021-09-10] MEDS ORDERED: METF-398 PO ×2 (14:12)
[2021-09-10 16:00] VITALS: BP 114/62
--- NOTE | 2021-09-10 16:06 | Progress Note ---
SANKETVLAD Ebony 09/10/21 1606: Subjective Subjective/Events-last exam Patient is feeling better today than the past two days but admits to continued bloody sputum this morning. He has never had bloody sputum before until this hospital admission. Today is day 3 of cefepime and WBCs are trending down at 12.6. His appetite is increased today and he was able to eat all of his breakfast. 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 He states that he has an appt. for a repeat CT in September. accompanied him today and had talked with the [facility] who stated that this hospital stay would be covered if CT needed to be done now. Currently his O2 saturation is at 92% on 4L NC. He states that at home he is usually using 2.5L NC. Objective Exam Last Set of Vital Signs Vital Signs Date Time Temp Pulse Resp B/P (MAP) Pulse Ox O2 Delivery O2 Flow Rate FiO2 09/10/21 15:24 87 36 97 09/10/21 14:24 Nasal Cannula 4.00 09/10/21 12:00 37.4 23 114/62 (79) Capillary Refill : Less Than 3 Seconds I&O Intake and Output 09/10/21 00:00 Intake Total 1600 ml Output Total 2300 ml Balance -700 ml Intake Oral 1550 ml IV Total 50 ml Output Urine Total 2300 ml General: Alert, Oriented X3, Cooperative HEENT: Atraumatic, PERRLA Neck: Supple, No JVD Lungs: Clear to Auscultation, Normal Air Movement Heart: Regular Rate, Normal S1, Normal S2 Abdomen: Normal Bowel Sounds, Soft, No Masses Extremities: No Edema, Normal Pulses Neuro: Normal Speech Psych/Mental Status: Mental Status NL, Mood NL Results/Procedures Lab Laboratory Tests 09/09/21 20:11: Glucometer 238H 09/10/21 04:52: White Blood Count 12.6H, Red Blood Count 3.70L, Hemoglobin 10.4L, Hematocrit 33L , Mean Corpuscular Volume 88, Mean Corpuscular Hemoglobin 28, Mean Corpuscular Hemoglobin Concent 32, Red Cell Distribution Width 14.6H, Platelet Count 261, Mean Platelet Volume 10.7, Immature Granulocyte % (Auto) 1, Neutrophils (%) (Auto) 77H, Lymphocytes (%) (Auto) 7L, Monocytes (%) (Auto) 13H, Eosinophils (%) (Auto) 2, Basophils (%) (Auto) 1, Neutrophils # (Auto) 9.6H, Lymphocytes # (Auto) 0.9L, Monocytes # (Auto) 1.7H, Eosinophils # (Auto) 0.3, Basophils # (Auto) 0.1, Immature Granulocyte # (Auto) 0.1, Sodium Level 138, Potassium Level 4.6, Chloride Level 101, Carbon Dioxide Level 28, Anion Gap 9, Blood Urea Nitrogen 31H, Creatinine 1.45H, Estimat Glomerular Filtration Rate 48, BUN/Creatinine Ratio 21, Glucose Level 144H, Calcium Level 9.0 09/10/21 08:00: Glucometer 108 09/10/21 10:17: Glucometer 81 Microbiology 09/06/21 Blood Culture - Preliminary, 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 Recheck BMP and CBC for AM. Will order CT of chest today which was discussed with patient and . Continue antibiotic therapy and reassess in AM after imaging results. Qualifiers: Qualified Codes: J18.9 - Pneumonia, unspecified organism (2) COPD (chronic obstructive pulmonary disease) Onset Date: Unknown Status: Chronic Assessment & Plan: Med reconciliation shows use of multiple inhalers. Continue Trelegy only at this time. Qualifiers: Qualified Codes: J44.0 - Chronic obstructive pulmonary disease with (acute) lower respiratory infection (3) BHAVANA (acute kidney injury) Status: Resolved Assessment & Plan: Acute on chronic kidney injury likely. Creatinine is trending downward at 1.45 today. Holding fluids at this time as he is improving without. 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 Advised to f/u with PCP after d/c to reevaluate at home regimen. (5) CAD (coronary artery disease) Onset Date: Unknown Status: Chronic Assessment & Plan: Pt states that he has 9 stents in his heart. Continue atorvastatin. Qualifiers: Qualified Codes: I25.119 - Atherosclerotic heart disease of [place] coronary artery with unspecified angina pectoris TRICIA BHATTI MD 09/10/218: Objective Exam General: Alert, Oriented X3 Lungs: Clear to Auscultation, Normal Air Movement Heart: Regular Rate, No Murmurs Abdomen: Normal Bowel Sounds, Soft Extremities: No Edema Neuro: Normal Speech Psych/Mental Status: Mood NL Supervisory-Addendum Brief Verification & Attestation Participated in pt care: history, MDM, physical Personally performed: exam, history Care discussed with: Medical Student Procedures: n/a I personally saw patient, see my physical exam for my findings. I repeated the history and agree with documentation of history by med student. I directed the plan of care as documented by OMS4 Marisabel Dinero. VLAD DINERO Sep 10, 2021 16:06 TRICIA BHATTI MD Sep 10, 2021 22:18
[2021-09-10] MEDS ORDERED: MONTELUKAST 10 MG (SINGULAIR) TAB PO SCH (17:00)
[2021-09-10] MEDS ORDERED: TAMSULOSIN 0.4 MG (FLOMAX) CAP PO SCH (17:00)
--- NOTE | 2021-09-10 17:15 | Diagnostic Imaging Report ---
PROCEDURE: CT chest without contrast. TECHNIQUE: Multiple contiguous axial images were obtained through the chest without the use of intravenous contrast. Auto Exposure Controls were utilized during the CT exam to meet ALARA standards for radiation dose reduction. INDICATION: 71-year-old male with pneumonia, hemoptysis. COMPARISONS: Single view chest 09/06/2021. CT chest 02/21/2016. FINDINGS: There are a few shotty benign-appearing axillary nodes, but no evidence of axillary adenopathy. There are several paratracheal nodes, the largest of which measures 17 mm. There are also several hilar nodes of similar size. Overall assessment of the mediastinum is limited due to lack of IV contrast. Cardiac contour is normal. Prominent coronary artery calcifications are seen. There is a sliver of pericardial fluid. Lungs show a large bulla in the right apex, similar to the previous study. There are patchy interstitial and alveolar opacities in all five lobes. There are some central bronchiectatic changes as well as some peribronchial cuffing. Some nodular type infiltrates are also seen in the left lower lobe. There is no effusion or pneumothorax. Limited assessment of the abdomen shows no adverse interval changes. IMPRESSION: 1. Large right apical bulla, similar to the previous study. 2. There are patchy interstitial and alveolar opacities in all five lobes. COVID pneumonia should be considered. 3. There is slight mediastinal shift to the right, chronic. 4. Mediastinal lymphadenopathy, nonspecific. Overall assessment of the mediastinum is limited due to the lack of IV contrast. 5. Central bronchiectatic changes with peribronchial cuffing noted. Additional nonemergent findings as described above. Dictated by: Dictated on workstation # [id number]
[2021-09-10] MEDS: FLUTICASONE NASAL SPRAY (FLONASE) 16 GM BTL NS SCH (17:53)
[2021-09-10 20:00] VITALS: BP 153/72
[2021-09-10] MEDS: RT-BUDESONIDE NEBS 0.5 MG/2ML (PULMICORT) AMP INH SCH (21:31)
[2021-09-11] VITALS: BP 112/56
[2021-09-11] MEDS: RT-ALBUTEROL/IPRATROPIUM 3 ML (DUONEB) VIAL INH SCH ×2 (02:14→09:45)
[2021-09-11 04:00] VITALS: BP 114/41
[2021-09-11 05:20] LABS: HEMATOCRIT 32 % (40-54); HEMOGLOBIN 10.2 g/dL (13.3-17.7); MEAN CORPUSCULAR HEMOGLOBIN 28 pg (25-34); MEAN CORPUSCULAR HGB CONC 32 g/dL (32-36); MEAN CORPUSCULAR VOLUME 89 fL (80-99); MEAN PLATELET VOLUME 10.9 fL (9.0-12.2); PLATELET COUNT 264 10^3/uL (130-400); WHITE BLOOD COUNT 11.7 10^3/uL (4.3-11.0)
[2021-09-11 05:41] LABS: POTASSIUM 4.4 MMOL/L (3.6-5.0)
[2021-09-11 05:42] LABS: CALCIUM 8.8 MG/DL (8.5-10.1)
[2021-09-11 05:47] LABS: CREATININE SERUM 1.67 MG/DL (0.60-1.30)
[2021-09-11] MEDS: CEFEPIME 1,000 MG/NS 50 ML IVPB IV SCH ×2 (06:14)
[2021-09-11] MEDS: inSUlin ASPART (NovoLOG) 1 UNIT/0.01 ML (CHARGE PER UNIT) SC SCH ×2 (06:24→13:30)
[2021-09-11] MEDS: RT-BUDESONIDE NEBS 0.5 MG/2ML (PULMICORT) AMP INH SCH (06:36)
[2021-09-11] MEDS: UMECLIDINIUM BROMIDE (INCRUSE ELLIPTA) 7'S IH SCH (06:36)
[2021-09-11] MEDS: RT-ALBUTEROL/IPRATROPIUM 3 ML (DUONEB) VIAL INH PRN (06:36)
[2021-09-11 07:43] VITALS: BP 127/58
[2021-09-11] MEDS: FLUTICASONE NASAL SPRAY (FLONASE) 16 GM BTL NS SCH (08:30)
[2021-09-11] MEDS ORDERED: PANTOPRAZOLE 40 MG (PROTONIX) TAB PO SCH (09:00)
[2021-09-11] MEDS ORDERED: GABAPENTIN 100 MG (NEURONTIN) CAP PO SCH (09:00)
[2021-09-11 11:53] VITALS: BP 120/58
--- NOTE | 2021-09-11 14:02 | Pulmonary Consultation ---
History of Present Illness History of Present Illness Date Seen by Provider: Sep 11, 2021 Time Seen by Provider: 14:00 Date of Admission Allergies and Home Medications Allergies Coded Allergies: liraglutide (Verified Allergy, Unknown, 09/06/21) Home Medications Albuterol Sulfate 18 Gm Hfa.aer.ad, 2 PUFF INH Q4H PRN for SHORTNESS OF BREATH, (Reported) Alogliptin Benzoate 12.5 Mg Tablet, 12.5 MG PO DAILY, (Reported) Amlodipine Besylate 10 Mg Tablet, 5 MG PO DAILY, (Reported) TAKES 1/2 OF A (10MG) TABLET Aspirin 81 Mg Tablet.dr, 81 MG PO DAILY, (Reported) Atorvastatin Calcium 40 Mg Tablet, 40 MG PO 1700, (Reported) Budesonide/Formoterol Fumarate 10.2 Gm Hfa.aer.ad, 2 PUFF IH BID, (Reported) Carvedilol 25 Mg Tablet, 12.5 MG PO BID, (Reported) TAKES (25MG) TABLET Clopidogrel Bisulfate 75 Mg Tablet, 75 MG PO DAILY, (Reported) Fluticasone Propionate 9.9 Ml [place].susp, 1-2 SPRAY NS DAILY, (Reported) Gabapentin 100 Mg Capsule, 100 MG PO DAILY, (Reported) Hydrochlorothiazide 25 Mg Tablet, 25 MG PO 1700, (Reported) Insulin Glargine,Hum.rec.anlog 100 Unit/1 Ml Insuln.pen, 20 UNITS SQ 1200, (Reported) Lisinopril 40 Mg Tablet, 40 MG PO DAILY, (Reported) Metformin HCl 850 Mg Tablet, 850 MG PO BID, (Reported) Montelukast Sodium 10 Mg Tablet, 10 MG PO 1700, (Reported) Nitroglycerin 0.4 Mg Tab.subl, 0.4 MG SL UD PRN for CHEST PAIN, (Reported) Pantoprazole Sodium 40 Mg Tablet.dr, 40 MG PO DAILY, (Reported) Tamsulosin HCl 0.4 Mg Cap, 0.4 MG PO 1700, (Reported) Tiotropium [place] 4 Gm Mist.inhal, 2 PUFF IH DAILY, (Reported) Past Medical/Social/Family Hx Patient Social History Marrital Status: Employed/Student: unemployed Tobacco Use?: Yes Tobacco type used: Cigarettes Smoking Status: Current Everyday Smoker Substance use?: No Alcohol Use?: No Pt stated abuse/neglect: No Immunizations Up To Date Influenza Vaccine Up-to-Date: Yes; Up-to-Date First/Initial COVID19 Vaccinat: NOVEMBER 2020, [employer] Tetanus Booster (TDap): Unknown Hepatitis A: No Hepatitis B: No TB Skin Test: Negative Date of Pneumonia Vaccine: Jul 25, 2017 Current Status Advance Directives: No Communicates: Verbally Primary Language: Portuguese Preferred Spoken Language: Portuguese Is interpretation needed?: No Review of Systems Constitutional: see HPI Sepsis Event Evaluation Height, Weight, BMI Height: 5'11.00" Weight: 225lbs. 0.0oz. 102.953000uf; 28.02 BMI Method:Stated Exam Exam Patient acknowledged, consented, and participated in this virtual visit which was conducted using real time audio/video Vital Signs Date Time Temp Pulse Resp B/P (MAP) Pulse Ox O2 Delivery O2 Flow Rate FiO2 09/11/21 13:00 74 09/11/21 11:53 37.1 69 20 120/58 (78) 97 Nasal Cannula 5.00 09/11/21 09:45 96 Nasal Cannula 4.00 09/11/21 08:15 Nasal Cannula 4.00 09/11/21 07:43 36.5 80 17 127/58 (81) 96 Nasal Cannula 5.00 09/11/21 07:00 73 09/11/21 06:44 Nasal Cannula 4.00 09/11/21 06:43 Nasal Cannula 4.00 09/11/21 06:37 94 Nasal Cannula 5.00 09/11/21 04:00 36.4 76 16 114/41 (65) 95 Nasal Cannula 5.00 09/11/21 02:14 94 Nasal Cannula 4.00 09/11/21 01:00 80 09/11/21 00:00 36.6 75 14 112/56 (74) 93 Nasal Cannula 5.00 09/10/21 21:31 98 Nasal Cannula 4.00 09/10/21 21:31 98 Nasal Cannula 4.00 09/10/21 21:00 95 Nasal Cannula 4.00 09/10/21 20:00 37.4 88 15 153/72 (99) 95 Nasal Cannula 4.00 09/10/21 19:00 82 09/10/21 16:00 37.4 87 23 114/62 (79) 36 Nasal Cannula 4.00 4.00 09/10/21 15:24 87 36 97 09/10/21 14:24 97 Nasal Cannula 4.00 I & O 09/11/21 07:00 Intake Total 2470 ml Output Total 2075 ml Balance 395 ml Height & Weight Height: 5'11.00" Weight: 225lbs. 0.0oz. 102.008427vt; 28.02 BMI Method:Stated General Appearance: No Apparent Distress HEENT: PERRL/EOMI Neck: Full Range of Motion, Normal Inspection Respiratory: No Accessory Muscle Use, No Respiratory Distress, Other (Decreased breath sounds right base compared to left with rales coarse breath sounds throughout no wheezing with regular respiration) Cardiovascular: Regular Rate, Rhythm, No Gallop, No Murmur Capillary Refill: Less Than 3 Seconds Extremity: Pedal Edema (2+ edema equal bilaterally) Neurologic/Psychiatric: Alert, Oriented x3, No Motor/Sensory Deficits, Normal Mood/Affect Skin: Normal Color, Warm/Dry Lymphatic: No Adenopathy Results Lab Laboratory Tests 09/10/21 04:52 09/11/21 05:01 Assessment/Plan Assessment/Plan visit done by Duyen renee , and RN in room Presented with hemoptysis and dyspnea . morning of presentations had a bout of very severe cought - (dry -) but later that day he had worsening of cough and reported hemoptysois Dx with PNA - tcx with abx , nebs - improving - hemoptysis - improved , more dark bid now -no sore troat , no epistaxis -better - easier with nebs BASELINE dyspnea at exertion ( can walk 20 feet to a car ) - otherwise use walker using o2 most of the time no CPAP nebs - available at home - not using even prn 2018 good appetite, seems loosing muscle weight baseline minimal cough , mostly morning wheezing at night proair prn 4 times a day prednisone - last time 2019 CT lung May 2021 in [place] - told to follow in [place] - " enlarging growth" no hemoptysis prior + dog , no cats , no livestock , no birds no enviromental allergy A/P Bact PNA , acute , on face of mild bronchiectasis - cont abx for 2 weeks total - check legionella Hemoptysis with infection and bronchiectasis - improving -add nebs at home bid-tid for easy -up expectoration -finish abx -small dose steroids po 10-12 days AECOPD - nebs , steroids as above Severe oxygen dependent COPD with large right apical bulla ( similar to the previous study 2018 ) and central bronchiectatic changes - 2.5L via [place] 21/04 - Cont ICS/LABA symbicort 160-4.5 -spiriva ? benefirts from -singular- as per primary pulm RLL nodule - mass - partially obscurted by PNA - to follow [place] as scheduled prion Current Everyday Smoker- discussed Pulm rehab discussed all questions answered discussed with JESSY Arvizu MD Sep 11, 2021 14:02
[2021-09-11] MEDS ORDERED: PRED5TAB PO ×2 (14:52)
[2021-09-11] MEDS ORDERED: CEFD300C3 PO ×2 (14:52)
[2021-09-11] MEDS ORDERED: IPRA3AMP31 INH ×2 (14:52)
--- NOTE | 2021-09-11 14:52 | Discharge Summary ---
Discharge Summary Hospital Course Problems/Diagnosis: (1) Pneumonia Onset Date: ~ 09/06/2021 Status: Acute Assessment & Plan: CT of chest was done on 09/10 due to persistent hemoptysis and history of nodule. Showed diffuse interstitial infiltrate which did obscure the previous nodule. Pulmonology consulted and recommended to treat with antibiotics for at least 2 weeks, prednisone given his history of COPD even though not wheezing in order to decrease airway irritation, and use nebulizer which helped with his cough clearance, suspect possibly he coughed so severely that he had some pulm hemorrhage, bleeding getting darker and less, okay for dis charge and follow up CT in Sep as planned. Qualifiers: Qualified Codes: J18.9 - Pneumonia, unspecified organism (2) COPD (chronic obstructive pulmonary disease) Onset Date: Unknown Status: Chronic Assessment & Plan: Continued home inhalers, sent script for nebulized albuterol/ipratropium. Qualifiers: Qualified Codes: J44.0 - Chronic obstructive pulmonary disease with (acute) lower respiratory infection (3) BHAVANA (acute kidney injury) Status: Resolved Resolution Date/Time: 09/10/21 @ 16:14 Assessment & Plan: Acute on chronic kidney injury likely. reported chronic kidney disease and following with Nephrology but unsure of baseline creatinine, cr 1.6 at d/c. 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 Advised to f/u with PCP after d/c to reevaluate at home regimen. (5) CAD (coronary artery disease) Onset Date: Unknown Status: Chronic Assessment & Plan: Pt states that he has 9 stents in his heart. Continue atorvastatin. Qualifiers: Qualified Codes: I25.119 - Atherosclerotic heart disease of semin[place] coronary artery with unspecified angina pectoris Hospital Course Date of Admission: Sep 06, 2021 at 22:53 Admission Diagnosis : See problem list Family Physician/Provider: Jasmin Bland Aprn Date of Discharge: 09/11/21 Discharge Diagnosis: See problem list Hospital Course: See problem list Labs and Pending Lab Test: Laboratory Tests 09/10/21 17:25: Glucometer 87 09/10/21 20:43: Glucometer 172H 09/11/21 05:01: White Blood Count 11.7H, Red Blood Count 3.60L, Hemoglobin 10.2L, Hematocrit 32L , Mean Corpuscular Volume 89, Mean Corpuscular Hemoglobin 28, Mean Corpuscular Hemoglobin Concent 32, Red Cell Distribution Width 14.4, Platelet Count 264, Mean Platelet Volume 10.9, Sodium Level 137, Potassium Level 4.4, Chloride Level 101, Carbon Dioxide Level 27, Anion Gap 9, Blood Urea Nitrogen 38H, Creatinine 1.67H, Estimat Glomerular Filtration Rate 41, BUN/Creatinine Ratio 23, Glucose Level 151H, Calcium Level 8.8 09/11/21 06:21: Glucometer 226H 09/11/21 10:12: Glucometer 127H Microbiology 09/06/21 Blood Culture - Preliminary, Resulted 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 Cefdinir 300 Mg Capsule 300 Mg PO BID 14 Days Reported Metformin HCl 850 Mg Tablet 850 Mg PO BID Amlodipine Besylate 10 Mg Tablet 5 Mg PO DAILY TAKES 1/2 OF A (10MG) TABLET Alogliptin (Alogliptin Benzoate) 12.5 Mg Tablet 12.5 Mg PO DAILY Carvedilol 25 Mg Tablet 12.5 Mg PO BID TAKES (25MG) TABLET Spiriva Respimat 2.5MCG/ACTUATION (Tiotropium [place]) 4 Gm Mist.inhal 2 Puff IH DAILY Flonase Allergy Relief (Fluticasone Propionate) 9.9 Ml [place].susp 1-2 Inez NS DAILY Nitroglycerin 0.4 Mg Tab.subl 0.4 Mg SL UD PRN Montelukast Sodium 10 Mg Tablet 10 Mg PO 1700 Hydrochlorothiazide 25 Mg Tablet 25 Mg PO 1700 Ventolin Hfa (Albuterol Sulfate) 18 Gm Hfa.aer.ad 2 Puff INH Q4H PRN Symbicort 160-4.5 Mcg Inhaler (Budesonide/Formoterol Fumarate) 10.2 Gm Hfa.aer.ad 2 Puff IH BID Flomax (Tamsulosin HCl) 0.4 Mg Cap 0.4 Mg PO 1700 Lipitor (Atorvastatin Calcium) 40 Mg Tablet 40 Mg PO 1700 Lantus Solostar (Insulin Glargine,Hum.rec.anlog) 100 Unit/1 Ml Insuln.pen 20 Units SQ 1200 Lisinopril 40 Mg Tablet 40 Mg PO DAILY Aspirin EC (Aspirin) 81 Mg Tablet.dr 81 Mg PO DAILY Clopidogrel (Clopidogrel Bisulfate) 75 Mg Tablet 75 Mg PO DAILY Pantoprazole Sodium 40 Mg Tablet.dr 40 Mg PO DAILY Gabapentin 100 Mg Capsule 100 Mg PO DAILY Assessment/Pt DC Instructions Follow up with primary physician within one week. Follow up with Pulmonology and repeat CT in September as scheduled. Discharge Diet: ADA Diet Activity as Tolerated: Yes Discharge Physical Examination Allergies: Coded Allergies: liraglutide (Verified Allergy, Unknown, 09/06/21) General Appearance: No Apparent Distress, WD/WN Respiratory: Lungs Clear, Normal Breath Sounds Cardiovascular: Regular Rate, Rhythm, No Murmur Gastrointestinal: Normal Bowel Sounds, Non Tender Extremity: No Pedal Edema Skin: Normal Color, Warm/Dry Neurologic/Psychiatric: Alert, Normal Mood/Affect TRICIA BHATTI MD Sep 11, 2021 14:52
== END 2021-09-11 15:00 | disposition home or self-care (01) | DRG 190 ==
LOC: EDUNIT# 21:39 → ER 21:40 → CSD 22:53
PROVIDERS: ADMIT Family Medicine; ATTEND Family Medicine
DX: J44.1 Chronic obstructive pulmonary disease with (acute) exacerbation (principal); J18.9 Pneumonia, unspecified organism; R04.2 Hemoptysis; N17.9 Acute kidney failure, unspecified; J44.0 Chronic obstructive pulmonary disease with (acute) lower respiratory infection; F17.210 Nicotine dependence, cigarettes, uncomplicated; Z99.81 Dependence on supplemental oxygen; E11.51 Type 2 diabetes mellitus with diabetic peripheral angiopathy without gangrene; Z20.822 Contact with and (suspected) exposure to COVID-19; I70.209 Unspecified atherosclerosis of native arteries of extremities, unspecified extremity; I25.119 Atherosclerotic heart disease of native coronary artery with unspecified angina pectoris; Z95.5 Presence of coronary angioplasty implant and graft; I12.9 Hypertensive chronic kidney disease with stage 1 through stage 4 chronic kidney disease, or unspecified chronic kidney disease; E78.00 Pure hypercholesterolemia, unspecified; I25.2 Old myocardial infarction; E11.40 Type 2 diabetes mellitus with diabetic neuropathy, unspecified; M19.90 Unspecified osteoarthritis, unspecified site; G89.29 Other chronic pain; M54.9 Dorsalgia, unspecified; R11.0 Nausea; Z79.82 Long term (current) use of aspirin; Z79.899 Other long term (current) drug therapy; Z79.4 Long term (current) use of insulin; Z79.84 Long term (current) use of oral hypoglycemic drugs
CPT/HCPCS: 36415; 71045; 71250; 80048; 80053; 82805; 82947; 83605; 83880; 85007; 85025; 85027; 85379; 85610; 85730; 87040; 87070; 87205; 87636; 93005; 94640; 94760; 96365; 96375

== ENCOUNTER → 2021-09-12 | Outpatient (CLI) | payer OTHER, MEDICARE ==
[~2021-09-12] MED LIST changes: +IPRA3AMP31 INH; +PRED5TAB PO
== END ==
LOC: WOUNDCARE 12:48
PROVIDERS: ATTEND Family Medicine
DX: I70.243 Atherosclerosis of native arteries of left leg with ulceration of ankle (principal); L97.322 Non-pressure chronic ulcer of left ankle with fat layer exposed; T65.222A Toxic effect of tobacco cigarettes, intentional self-harm, initial encounter; E11.622 Type 2 diabetes mellitus with other skin ulcer; E11.65 Type 2 diabetes mellitus with hyperglycemia; E11.52 Type 2 diabetes mellitus with diabetic peripheral angiopathy with gangrene; F17.218 Nicotine dependence, cigarettes, with other nicotine-induced disorders
CPT/HCPCS: 99213

== ENCOUNTER → 2021-09-19 | Outpatient (CLI) | payer OTHER, MEDICARE | LOC: WOUNDCARE 12:33 | PROVIDERS: ATTEND Family Medicine | DX: I70.243 Atherosclerosis of native arteries of left leg with ulceration of ankle (principal); L97.322 Non-pressure chronic ulcer of left ankle with fat layer exposed; E11.622 Type 2 diabetes mellitus with other skin ulcer; E11.52 Type 2 diabetes mellitus with diabetic peripheral angiopathy with gangrene; E11.65 Type 2 diabetes mellitus with hyperglycemia; T65.222A Toxic effect of tobacco cigarettes, intentional self-harm, initial encounter; F17.218 Nicotine dependence, cigarettes, with other nicotine-induced disorders | CPT/HCPCS: 97597 ==

== ENCOUNTER → 2021-09-25 | Outpatient (CLI) | payer OTHER, MEDICARE | LOC: WOUNDCARE 12:32 | PROVIDERS: ATTEND Family Medicine | DX: I70.243 Atherosclerosis of native arteries of left leg with ulceration of ankle (principal); L97.322 Non-pressure chronic ulcer of left ankle with fat layer exposed; E11.622 Type 2 diabetes mellitus with other skin ulcer; E11.52 Type 2 diabetes mellitus with diabetic peripheral angiopathy with gangrene; E11.65 Type 2 diabetes mellitus with hyperglycemia; T65.222A Toxic effect of tobacco cigarettes, intentional self-harm, initial encounter; F17.218 Nicotine dependence, cigarettes, with other nicotine-induced disorders | CPT/HCPCS: 11042 ==

== ENCOUNTER → 2021-10-03 | Outpatient (CLI) | payer OTHER, MEDICARE | LOC: WOUNDCARE 12:28 | PROVIDERS: ATTEND Family Medicine | DX: I70.243 Atherosclerosis of native arteries of left leg with ulceration of ankle (principal); L97.322 Non-pressure chronic ulcer of left ankle with fat layer exposed; T65.222A Toxic effect of tobacco cigarettes, intentional self-harm, initial encounter; E11.622 Type 2 diabetes mellitus with other skin ulcer; E11.65 Type 2 diabetes mellitus with hyperglycemia; E11.52 Type 2 diabetes mellitus with diabetic peripheral angiopathy with gangrene; F17.218 Nicotine dependence, cigarettes, with other nicotine-induced disorders | CPT/HCPCS: 11042 ==

== ENCOUNTER → 2021-10-10 | Outpatient (CLI) | payer OTHER, MEDICARE | LOC: WOUNDCARE 12:33 | PROVIDERS: ATTEND Family Medicine | DX: I70.243 Atherosclerosis of native arteries of left leg with ulceration of ankle (principal); L97.322 Non-pressure chronic ulcer of left ankle with fat layer exposed; T65.222A Toxic effect of tobacco cigarettes, intentional self-harm, initial encounter; F17.218 Nicotine dependence, cigarettes, with other nicotine-induced disorders; E11.622 Type 2 diabetes mellitus with other skin ulcer; E11.65 Type 2 diabetes mellitus with hyperglycemia; E11.52 Type 2 diabetes mellitus with diabetic peripheral angiopathy with gangrene | CPT/HCPCS: 11042 ==

== ENCOUNTER 2021-10-15 14:18 | Emergency (ER) | payer MEDICARE, OTHER ==
[~2021-10-15] VITALS: Ht 177.8 cm; Wt 89.8 kg
[2021-10-15 14:57] LABS: BASOPHILS % (AUTO) 0 % (0-10); EOSINOPHILS # (AUTO) 0.2 10^3/uL (0.0-0.3); EOSINOPHILS % (AUTO) 3 % (0-10); HEMATOCRIT 35 % (40-54); HEMOGLOBIN 10.9 g/dL (13.3-17.7); LYMPHOCYTES # (AUTO) 1.1 X 10^3 (1.0-4.0); LYMPHOCYTES % (AUTO) 16 % (12-44); MEAN CORPUSCULAR HEMOGLOBIN 29 pg (25-34); MEAN CORPUSCULAR HGB CONC 32 g/dL (32-36); MEAN CORPUSCULAR VOLUME 90 fL (80-99); MEAN PLATELET VOLUME 10.7 fL (9.0-12.2); MONOCYTES # (AUTO) 0.9 X 10^3 (0.0-1.0); MONOCYTES % (AUTO) 12 % (0-12); NEUTROPHILS # (AUTO) 4.8 X 10^3 (1.8-7.8); NEUTROPHILS % (AUTO) 69 % (42-75); PLATELET COUNT 212 10^3/uL (130-400)
[2021-10-15 15:02] LABS: ALBUMIN 3.2 GM/DL (3.2-4.5); POTASSIUM 4.9 MMOL/L (3.6-5.0)
[2021-10-15 15:04] LABS: CALCIUM 8.4 MG/DL (8.5-10.1)
[2021-10-15 15:05] LABS: TOTAL PROTEIN 6.6 GM/DL (6.4-8.2)
[2021-10-15 15:07] LABS: BILIRUBIN,TOTAL 0.1 MG/DL (0.1-1.0)
[2021-10-15 15:09] LABS: CREATININE SERUM 1.58 MG/DL (0.60-1.30)
[2021-10-15 15:12] LABS: MAGNESIUM 1.6 MG/DL (1.6-2.4)
--- NOTE | 2021-10-15 16:01 | Diagnostic Imaging Report ---
INDICATION: COVID infection and dyspnea. AP view of the chest is obtained with comparison made to study of 09/06/2021. FINDINGS: There is continued ground-glass density throughout the lungs bilaterally. There is also continued pleural thickening, most pronounced in the upper right hemithorax. There is mild improvement in aeration in the right perihilar region. No other change is identified. IMPRESSION: Bilateral ground-glass densities would be compatible with residual pneumonitis and/or edema with persistent right pleural fluid and/or thickening. There is mild overall improvement in the central right lung. Dictated by: Dictated on workstation # [id number]
[2021-10-15] MEDS ORDERED: cefTRIAXone 1 GM PRE-MIX 50 ML IV STA (16:05)
[2021-10-15 16:18] LABS: BILIRUBIN,URINE NEGATIVE (NEGATIVE); CLARITY,URINE CLEAR; COLOR,URINE YELLOW; GLUCOSE, URINE (UA) TRACE (NEGATIVE); KETONES,URINE NEGATIVE (NEGATIVE); LEUKOCYTE ESTERASE ,URINE NEGATIVE (NEGATIVE); NITRITE,URINE NEGATIVE (NEGATIVE); PROTEIN,URINE 2+ (NEGATIVE)
[2021-10-15 16:28] LABS: RBC,URINE 0-2 /HPF
[2021-10-15 16:29] LABS: BACTERIA,URINE TRACE /HPF; SQUAMOUS EPITHELIAL CELL,UR 0-2 /HPF
[2021-10-15] MEDS ORDERED: AZIT250T12 PO (17:35)
--- NOTE | 2021-10-15 17:35 | ED General ---
General Chief Complaint: COVID19 Suspect/Confirmed Stated Complaint: COVID + Nursing Triage Note: PT TO RM [facility] BY [facility] FROM [facility] FOR COVID +. PT STARTED FEELING BAD 2 DAYS AGO. WAS IN HOSPITAL LAST MONTH WITH PNEUMONIA. WEARS 4LNC AT HOME. Source of Information: Patient Exam Limitations: No Limitations History of Present Illness Date Seen by Provider: Oct 15, 2021 Time Seen by Provider: 14:41 Initial Comments This 71-year-old gentleman presents to the emergency room via EMS with complaints of fatigue and shortness of air associated with COVID-19. He is vaccinated. His and [facility] reported that he seems more confused than usual. He normally uses oxygen at 4 L/min by nasal cannula and he continues with that therapy now. Oxygen saturations are in the mid 90s. He is not in respiratory distress. He is seems alert and oriented and a reasonable conversationalist at this time. He was sent to the ER by [facility] staff. Allergies and Home Medications Allergies Coded Allergies: liraglutide (Verified Allergy, Unknown, 09/06/21) Patient Home Medication List Home Medication List Reviewed: Yes Albuterol Sulfate (Ventolin Hfa) 18 Gm Hfa.aer.ad, 2 PUFF INH Q4H PRN for SHORTNESS OF BREATH, (Reported) Entered as Reported by: GEORGINA ALVAREZ on 06/11/19 1459 Alogliptin Benzoate (Alogliptin) 12.5 Mg Tablet, 12.5 MG PO DAILY, (Reported) Entered as Reported by: RADHA MACKAY on 05/16/21 0828 Amlodipine Besylate (Amlodipine Besylate) 10 Mg Tablet, 5 MG PO DAILY, (Reported) Entered as Reported by: SHANNAN DICKENS on 09/07/21 1255 Aspirin (Aspirin EC) 81 Mg Tablet.dr, 81 MG PO DAILY, (Reported) Entered as Reported by: MARLY NAVARRETE on 10/06/17 1348 Atorvastatin Calcium (Lipitor) 40 Mg Tablet, 40 MG PO 1700, (Reported) Entered as Reported by: DESEAN COE on 12/23/18 0731 Azithromycin (Azithromycin) 250 Mg Tablet, 250 MG PO UD Prescribed by: PRINCESS TAVAREZ on 10/15/21 1735 Budesonide/Formoterol Fumarate (Symbicort 160-4.5 Mcg Inhaler) 10.2 Gm Hfa.aer.ad, 2 PUFF IH BID, (Reported) Entered as Reported by: DESEAN COE on 12/23/18 0731 Carvedilol (Carvedilol) 25 Mg Tablet, 12.5 MG PO BID, (Reported) Entered as Reported by: RADHA MACKAY on 05/16/21 0819 Cefdinir (Cefdinir) 300 Mg Capsule, 300 MG PO BID Prescribed by: TRICIA BHATTI on 09/11/21 1452 Clopidogrel Bisulfate (Clopidogrel) 75 Mg Tablet, 75 MG PO DAILY, (Reported) Entered as Reported by: GEORGINA ALVAREZ on 05/16/15 1119 Fluticasone Propionate (Flonase Allergy Relief) 9.9 Ml [place].susp, 1-2 SPRAY NS DAILY, (Reported) Entered as Reported by: JIM MCDONALD on 01/19/21 1126 Gabapentin (Gabapentin) 100 Mg Capsule, 100 MG PO DAILY, (Reported) Entered as Reported by: GEORGINA ALVAREZ on 05/16/15 1118 Hydrochlorothiazide (Hydrochlorothiazide) 25 Mg Tablet, 25 MG PO 1700, (Reported) Entered as Reported by: JIM MCDONALD on 01/19/21 1126 Insulin Glargine,Hum.rec.anlog (Lantus Solostar) 100 Unit/1 Ml Insuln.pen, 20 UNITS SQ 1200, (Reported) Entered as Reported by: MARLY NAVARRETE on 10/06/17 1538 Ipratropium/Albuterol Sulfate (Iprat-Albut 0.5-3(2.5) mg/3 ml) 3 Ml Ampul.neb, 3 ML INH Q6H PRN for SHORTNESS OF BREATH Prescribed by: TRICIA BHATTI on 09/11/21 1452 Lisinopril (Lisinopril) 40 Mg Tablet, 40 MG PO DAILY, (Reported) Entered as Reported by: MARLY NAVARRETE on 10/06/17 1535 Metformin HCl (Metformin HCl) 850 Mg Tablet, 850 MG PO BID, (Reported) Entered as Reported by: TRICIA BHATTI on 09/10/21 1412 Montelukast Sodium (Montelukast Sodium) 10 Mg Tablet, 10 MG PO 1700, (Reported) Entered as Reported by: JIM MCDONALD on 01/19/21 1126 Nitroglycerin (Nitroglycerin) 0.4 Mg Tab.subl, 0.4 MG SL UD PRN for CHEST PAIN, (Reported) Entered as Reported by: JIM MCDONALD on 01/19/21 1126 Pantoprazole Sodium (Pantoprazole Sodium) 40 Mg Tablet.dr, 40 MG PO DAILY, (Reported) Entered as Reported by: GEORGINA ALVAREZ on 05/16/15 1118 Prednisone (Prednisone) 5 Mg Tablet, 0 PO UD Prescribed by: TRICIA BHATTI on 09/11/21 1452 Tamsulosin HCl (Flomax) 0.4 Mg Cap, 0.4 MG PO 1700, (Reported) Entered as Reported by: DESEAN COE on 12/23/18 0731 Tiotropium [place] (Spiriva Respimat 2.5MCG/ACTUATION) 4 Gm Mist.inhal, 2 PUFF IH DAILY, (Reported) Entered as Reported by: JIM MCDONALD on 01/19/21 1126 Review of Systems Review of Systems Constitutional: see HPI EENTM: no symptoms reported Respiratory: see HPI Cardiovascular: no symptoms reported Gastrointestinal: diarrhea Genitourinary: no symptoms reported Musculoskeletal: no symptoms reported Skin: no symptoms reported Psychiatric/Neurological: See HPI Hematologic/Lymphatic: No Symptoms Reported Immunological/Allergic: no symptoms reported Past Yrorzxn-Hrdhti-Jsdwur Hx Patient Social History Tobacco Use?: Yes Tobacco type used: Cigarettes Smoking Status: Current Everyday Smoker Use of E-Cig and/or Vaping dev: No Substance use?: No Alcohol Use?: No Pt feels they are or have been: No Immunizations Up To Date Tetanus Booster (TDap): Unknown PED Vaccines UTD: Yes Influenza Vaccine Up-to-Date: Yes; Up-to-Date First/Initial COVID19 Vaccinat: NOVEMBER 2020, DONALD Second COVID19 Vaccination Nomi: NOVEMBER 2020, DONALD Third COVID19 Vaccination Date: NOVEMBER 2020, DONALD Seasonal Allergies Seasonal Allergies: No Past Medical History Surgery/Hospitalization HX: COPD DM Surgeries: Yes (CHEST TUBE INSERTION, heart cathx9 stents) Cardiac, Coronary Stent Respiratory: Yes (Uses oxygen at 4 L/min nasal cannula at home) COPD Currently Using CPAP: No Currently Using BIPAP: No Cardiac: Yes Chronic Edema/Swelling, Coronary Artery Disease, Heart Attack, High Cholesterol, Hypertension Neurological: No Neuropathy Reproductive Disorders: No Genitourinary: Yes Gastrointestinal: Yes Hepatitis, Polyps Musculoskeletal: Yes Arthritis, Chronic Back Pain Endocrine: Yes Diabetes, Non-Insulin dep HEENT: No (hemmoraging in back of both eyes-pt see specialist for it) Cataract Cancer: No Psychosocial: No Integumentary: No Blood Disorders: No Family Medical History Patient reports no known family medical history. No Pertinent Family Hx Physical Exam Vital Signs Vital Signs - First Documented 10/15/21 14:18 Pulse 71 Resp 16 B/P (MAP) 103/60 (74) Pulse Ox 95 O2 Delivery Nasal Cannula O2 Flow Rate 4.00 Capillary Refill : Height, Weight, BMI Height: 5'11.00" Weight: 225lbs. 0.0oz. 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 as Tested Skin: Normal Color, Warm/Dry Progress/Results/Core Measures Suspected Sepsis SIRS Temperature: Pulse: 71 Respiratory Rate: 16 Laboratory Tests 10/15/21 14:45: White Blood Count 7.0 Blood Pressure 103 /60 Mean: 74 Laboratory Tests 10/15/21 14:45: Creatinine 1.58H, Platelet Count 212, Total Bilirubin 0.1 Results/Orders Lab Results Laboratory Tests Test 10/15/21 14:45 10/15/21 16:13 Range/Units White Blood Count 7.0 4.3-11.0 10^3/uL Red Blood Count 3.83 L 4.30-5.52 10^6/uL Hemoglobin 10.9 L 13.3-17.7 g/dL Hematocrit 35 L 40-54 % Mean Corpuscular Volume 90 80-99 fL Mean Corpuscular Hemoglobin 29 25-34 pg Mean Corpuscular Hemoglobin Concent 32 32-36 g/dL Red Cell Distribution Width 15.2 H 10.0-14.5 % Platelet Count 212 130-400 10^3/uL Mean Platelet Volume 10.7 9.0-12.2 fL Immature Granulocyte % (Auto) 0 % Neutrophils (%) (Auto) 69 42-75 % Lymphocytes (%) (Auto) 16 12-44 % Monocytes (%) (Auto) 12 0-12 % Eosinophils (%) (Auto) 3 0-10 % Basophils (%) (Auto) 0 0-10 % Neutrophils # (Auto) 4.8 1.8-7.8 X 10^3 Lymphocytes # (Auto) 1.1 1.0-4.0 X 10^3 Monocytes # (Auto) 0.9 0.0-1.0 X 10^3 Eosinophils # (Auto) 0.2 0.0-0.3 10^3/uL Basophils # (Auto) 0.0 0.0-0.1 10^3/uL Immature Granulocyte # (Auto) 0.0 0.0-0.1 10^3/uL Sodium Level 138 135-145 MMOL/L Potassium Level 4.9 3.6-5.0 MMOL/L Chloride Level 103 98-107 MMOL/L Carbon Dioxide Level 26 21-32 MMOL/L Anion Gap 9 5-14 MMOL/L Blood Urea Nitrogen 34 H 7-18 MG/DL Creatinine 1.58 H 0.60-1.30 MG/DL Estimat Glomerular Filtration Rate 47 BUN/Creatinine Ratio 22 Glucose Level 144 H 70-105 MG/DL Calcium Level 8.4 L 8.5-10.1 MG/DL Corrected Calcium 9.0 8.5-10.1 MG/DL Magnesium Level 1.6 1.6-2.4 MG/DL Total Bilirubin 0.1 0.1-1.0 MG/DL Aspartate Amino Transf (AST/SGOT) 22 5-34 U/L Alanine Aminotransferase (ALT/SGPT) 13 0-55 U/L Alkaline Phosphatase 73 40-136 U/L C-Reactive Protein High Sensitivity 2.12 H 0.00-0.50 MG/DL Total Protein 6.6 6.4-8.2 GM/DL Albumin 3.2 3.2-4.5 GM/DL Urine Color YELLOW Urine Clarity CLEAR Urine pH 6.0 5-9 Urine Specific [place] 1.020 1.016-1.022 Urine Protein 2+ H NEGATIVE Urine Glucose (UA) TRACE H NEGATIVE Urine Ketones NEGATIVE NEGATIVE Urine Nitrite NEGATIVE NEGATIVE Urine Bilirubin NEGATIVE NEGATIVE Urine Urobilinogen 0.2 < = 1.0 MG/DL Urine Leukocyte Esterase NEGATIVE NEGATIVE Urine RBC (Auto) NEGATIVE NEGATIVE Urine RBC 0-2 /HPF Urine WBC 2-5 /HPF Urine Squamous Epithelial Cells 0-2 /HPF Urine Renal Epithelial Cells NONE /HPF Urine Crystals NONE /LPF Urine Bacteria TRACE /HPF Urine Casts NONE /LPF Urine Mucus NEGATIVE /LPF Urine Culture Indicated NO My Orders Orders - PRINCESS MA MD Cbc With Automated Diff (10/15/21 14:41) Comprehensive Metabolic Panel (10/15/21 14:41) Hs C Reactive Protein (10/15/21 14:41) Magnesium (10/15/21 14:41) Ua Culture If Indicated (10/15/21 14:41) Ed Iv/Invasive Line Start (10/15/21 14:41) Chest 1 View, Ap/Pa Only (10/15/21 15:10) Dexamethasone Injection (Decadron Inje (10/15/21 16:15) Ceftriaxone 1 Gm Pre-Mix (Rocephin 1 Gm (10/15/21 16:05) Medications Given in ED Vital Signs/I&O 10/15/21 10/15/21 10/15/21 14:18 14:18 17:48 Pulse 71 71 Resp 16 16 B/P (MAP) 103/60 (74) 116/76 Pulse Ox 95 96 O2 Delivery Nasal Cannula Nasal Cannula O2 Flow Rate 4.00 4.00 Capillary Refill : Blood Pressure Mean: 74 Progress Note : Progress Note Patient did not have any increased oxygen requirement or respiratory distress. He was treated with Rocephin and dexamethasone in the ER. There was some evidence of pneumonia on chest x-ray. I do not believe patient should continue on steroid therapy due to potential for more confusion or agitation. He is not wheezing or requiring increased oxygen, so therefore steroids are not necessarily needed at this time. I will continue antibiotics due to appearance of the chest x-ray. Patient was offered monoclonal antibody therapy or antiviral therapy. He wishes to receive more information about the antiviral therapy and will consider after investigating this further. The fact sheet was given at discharge. See discharge instructions for further discussion. Departure Impression Primary Impression: COVID Disposition: 01 HOME, SELF-CARE Condition: Improved Departure-Patient Inst. Decision time for Depature: 17:32 Referrals: [facility] (PCP) Primary Care Physician MIKEY ZAZUETA APRN (Family) Primary Care Physician Patient Instructions: COVID-19 Overview, Molnupiravir Add. Discharge Instructions: Drink plenty of clear liquids to stay well-hydrated. Monitor your oxygen saturations with a pulse oximeter frequently and anytime you are feeling short of breath. If you have repeated measurements below 92% or any measurements below 90%, return to the ER. Use your oxygen continuously at your normal home rate. You may increase your oxygen rate up to 6 L/min if necessary to keep your oxygen saturations above 92%. Complete your antibiotic as prescribed. Read through the information provided on the COVID antiviral medication called Molnupiravir. If you decide to try this medication, please call your primary care provider or call Dr. Tavarez back in the ER tomorrow between 6 AM and 6 PM. Call with questions or concerns. Return to the ER if you have any other worsening of condition. All discharge instructions reviewed with patient and/or family. Voiced understanding. Scripts Azithromycin (Azithromycin) 250 Mg Tablet 250 MG PO UD, #6 TAB TAKE 2 TABLETS ON DAY ONE THEN TAKE 1 TABLET DAILY FOR FOUR MORE DAYS Prov: PRINCESS MA MD 10/15/21 Copy Copies To 1: FADY FOUNTAIN JOSHUA T MD Oct 15, 2021 17:35
[2021-10-15 17:48] VITALS: BP 116/76
== END 2021-10-15 17:48 | disposition home or self-care (01) ==
LOC: ER 14:18 → EDUNIT# 14:34 → ER 14:35
DX: U07.1 COVID-19 (principal); J44.9 Chronic obstructive pulmonary disease, unspecified; I10 Essential (primary) hypertension; I25.2 Old myocardial infarction; I25.10 Atherosclerotic heart disease of native coronary artery without angina pectoris; E78.00 Pure hypercholesterolemia, unspecified; E11.9 Type 2 diabetes mellitus without complications; F17.210 Nicotine dependence, cigarettes, uncomplicated; Z79.82 Long term (current) use of aspirin; Z79.01 Long term (current) use of anticoagulants; Z79.84 Long term (current) use of oral hypoglycemic drugs; Z79.899 Other long term (current) drug therapy
CPT/HCPCS: 36415; 71045; 80053; 81000; 83735; 85025; 86141; 96365; 96375

== ENCOUNTER → 2021-10-24 | Outpatient (CLI) | payer OTHER | LOC: WOUNDCARE 12:50 | PROVIDERS: ATTEND Family Medicine | DX: I70.243 Atherosclerosis of native arteries of left leg with ulceration of ankle (principal); L97.322 Non-pressure chronic ulcer of left ankle with fat layer exposed; E11.622 Type 2 diabetes mellitus with other skin ulcer; E11.65 Type 2 diabetes mellitus with hyperglycemia; T65.222A Toxic effect of tobacco cigarettes, intentional self-harm, initial encounter; E11.52 Type 2 diabetes mellitus with diabetic peripheral angiopathy with gangrene; F17.218 Nicotine dependence, cigarettes, with other nicotine-induced disorders | CPT/HCPCS: 11042 ==

== ENCOUNTER → 2021-11-07 | Outpatient (CLI) | payer OTHER | LOC: WOUNDCARE 12:41 | PROVIDERS: ATTEND Family Medicine | DX: I70.243 Atherosclerosis of native arteries of left leg with ulceration of ankle (principal); L97.322 Non-pressure chronic ulcer of left ankle with fat layer exposed; T65.222A Toxic effect of tobacco cigarettes, intentional self-harm, initial encounter; E11.622 Type 2 diabetes mellitus with other skin ulcer; E11.65 Type 2 diabetes mellitus with hyperglycemia; F17.218 Nicotine dependence, cigarettes, with other nicotine-induced disorders | CPT/HCPCS: 99212 ==

== ENCOUNTER → 2022-10-24 | Outpatient (CLI) | payer OTHER ==
[~2022-10-24] MED LIST changes: +ALBU8.5H6 INH; +CATHETER FLUSH 10 ML SYR IV PRN; +HOLD METFORMIN - RECEIVED CONTRAST 20 ML VIAL IV SCH; +IOHEXOL 350 MG/ML 100 ML (OMNIPAQUE 350) VIAL IV ONE; +LEVO-55 PO; -LEVO500T81 PO; +LEVO750T PO; -LEVO750T39 PO; +NS 100 ML (IVPB) BAG IV ONE; -RT-ALBUINH INH
[2022-10-24 10:28] LABS: CREATININE SERUM 1.96 MG/DL (0.60-1.30)
--- NOTE | 2022-10-24 13:53 | Diagnostic Imaging Report ---
INDICATION: Carotid stenosis. TECHNIQUE: Intravenous contrast administered. CT angiogram of the neck performed with 2-D and 3-D reconstructions. All CT scans use one or more of the following dose optimizing techniques: Automated exposure control, MA and/or KvP adjustment based on a patient size and exam type, or iterative reconstruction. FINDINGS: Some pleural-parenchymal scarring and chronic cavitation in the visualized right upper lobe, not clearly changed when correlated with CT cervical performed in 2016. There is conventional branching of the great vessels. Cervical and intradural vertebral arteries are patent. There are scattered calcified plaques in the bilateral common carotids proximally without their significant stenosis. More extensive calcified plaques at the carotid bulbs extend through the bifurcation into the proximal internal greater than external carotids. This disease is left more so than right and on the left results in about 50-60% stenosis, on the right well less than 50% stenosis. 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 The mass in the right parotid lobe posteriorly measuring 1.3 cm is unchanged from 2016, benign. The calcified plaques in the intracranial ICAs resulting in less than 50% stenosis are at their cavernous segments. The visualized anterior, middle, and posterior cerebral arterial segments as well as the basilar are unremarkable. IMPRESSION: Left greater than right carotid bifurcation plaque did not result in hemodynamically significant degrees of stenosis. 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 Dictated by: Dictated on workstation # [id number]
== END ==
LOC: CARD 09:54
PROVIDERS: ATTEND Internal Medicine Cardiovascular Disease
DX: I65.29 Occlusion and stenosis of unspecified carotid artery (principal); I10 Essential (primary) hypertension; I25.10 Atherosclerotic heart disease of native coronary artery without angina pectoris
CPT/HCPCS: 36415; 70498; 82565; 84520

== ENCOUNTER 2023-02-25 14:38 | Observation (INO) | payer OTHER ==
[2023-02-25] VITALS (10 sets, daily range): BP systolic 111–151; BP diastolic 50–69
[~2023-02-25] VITALS: Ht 177.8 cm; Wt 88.3 kg
[~2023-02-25 14:38] MED LIST changes: -CATHETER FLUSH 10 ML SYR IV PRN; +FLUT9.9S NSEACH; -HOLD METFORMIN - RECEIVED CONTRAST 20 ML VIAL IV SCH; -IOHEXOL 350 MG/ML 100 ML (OMNIPAQUE 350) VIAL IV ONE; -NS 100 ML (IVPB) BAG IV ONE
--- NOTE | 2023-02-25 15:07 | ED Respiratory ---
General Chief Complaint: Respiratory Problems Stated Complaint: WHEEZING | POSSIBLE PNEUMONIA Nursing Triage Note: PT TO ED BY POV WITH C/O SOB, CONGESTION AND PRODUCTIVE COUGH. SOB BEGAN , SAW PCP, PUT ON STEROIDS. PT NORMALLY WEARS 3 L NC, WEARING 4 L UPON ARRIVAL. Source: patient Exam Limitations: no limitations History of Present Illness Date Seen by Provider: February 25, 2023 Time Seen by Provider: 14:57 Initial Comments 72-year-old male presents to the emergency department today for shortness of breath. Symptoms progressive over the last 1 week. He was initially seen in the [facility] clinic and started on steroids. He just finished them 2 days ago. Overall symptoms present since last . He has a cough productive of green mucus. He is on 3 L of oxygen via nasal cannula [id number] and has had to increase this to 4L. He states any exertion causes severe shortness of breath. He denies any fevers or chills. No current chest pains but did have some little bit earlier in the week. No known sick contacts. He did recently find out he has stage IV kidney disease and saw a curtain framer for the first time. He is not sure if he is going to need dialysis or not. All other systems reviewed and negative except documented per HPI. Voice recognition software was used to help create this chart Allergies and Home Medications Allergies Coded Allergies: liraglutide (Verified Allergy, Unknown, 09/06/21) Patient Home Medication List Home Medication List Reviewed: Yes Albuterol Sulfate (Ventolin Hfa) 18 Gm Hfa.aer.ad, 2 PUFF INH Q4H PRN for SHORTNESS OF BREATH, (Reported) Entered as Reported by: GEORGINA ALVAREZ on 06/11/19 1459 Alogliptin Benzoate (Alogliptin) 12.5 Mg Tablet, 12.5 MG PO DAILY, (Reported) Entered as Reported by: RADHA MACKAY on 05/16/21 0828 Amlodipine Besylate (Amlodipine Besylate) 10 Mg Tablet, 5 MG PO DAILY, (Reported) Entered as Reported by: SHANNAN DICKENS on 09/07/21 1255 Aspirin (Aspirin EC) 81 Mg Tablet.dr, 81 MG PO DAILY, (Reported) Entered as Reported by: MARLY NAVARRETE on 10/06/17 1348 Atorvastatin Calcium (Lipitor) 40 Mg Tablet, 40 MG PO 1700, (Reported) Entered as Reported by: DESEAN COE on 12/23/18 0731 Azithromycin (Azithromycin) 250 Mg Tablet, 250 MG PO UD Prescribed by: PRINCESS MERCEDES on 10/15/21 1735 Budesonide/Formoterol Fumarate (Symbicort 160-4.5 Mcg Inhaler) 10.2 Gm Hfa.aer.ad, 2 PUFF IH BID, (Reported) Entered as Reported by: DESEAN COE on 12/23/18 0731 Carvedilol (Carvedilol) 25 Mg Tablet, 12.5 MG PO BID, (Reported) Entered as Reported by: RADHA MACKAY on 05/16/21 0819 Cefdinir (Cefdinir) 300 Mg Capsule, 300 MG PO BID Prescribed by: TRICIA BHATTI on 09/11/21 145 Clopidogrel Bisulfate (Clopidogrel) 75 Mg Tablet, 75 MG PO DAILY, (Reported) Entered as Reported by: GEORGINA ALVAREZ on 05/16/15 1119 Fluticasone Propionate (Flonase Allergy Relief) 9.9 Ml Byron.susp, 1-2 SPRAY NS DAILY, (Reported) Entered as Reported by: JIM MCDONALD on 01/19/21 1126 Gabapentin (Gabapentin) 100 Mg Capsule, 100 MG PO DAILY, (Reported) Entered as Reported by: GEORGINA ALVAREZ on 05/16/15 1118 Hydrochlorothiazide (Hydrochlorothiazide) 25 Mg Tablet, 25 MG PO 1700, (Reported) Entered as Reported by: JIM MCDONALD on 01/19/21 1126 Insulin Glargine,Hum.rec.anlog (Lantus Solostar) 100 Unit/1 Ml Insuln.pen, 20 UNITS SQ 1200, (Reported) Entered as Reported by: MARLY NAVARRETE on 10/06/17 1538 Ipratropium/Albuterol Sulfate (Iprat-Albut 0.5-3(2.5) mg/3 ml) 3 Ml Ampul.neb, 3 ML INH Q6H PRN for SHORTNESS OF BREATH Prescribed by: TRICIA BHATTI on 09/11/21 1452 Lisinopril (Lisinopril) 40 Mg Tablet, 40 MG PO DAILY, (Reported) Entered as Reported by: MARLY NAVARRETE on 10/06/17 1535 Metformin HCl (Metformin HCl) 850 Mg Tablet, 850 MG PO BID, (Reported) Entered as Reported by: TRICIA BHATTI on 09/10/21 1412 Montelukast Sodium (Montelukast Sodium) 10 Mg Tablet, 10 MG PO 1700, (Reported) Entered as Reported by: JIM MCDONALD on 01/19/21 1126 Nitroglycerin (Nitroglycerin) 0.4 Mg Tab.subl, 0.4 MG SL UD PRN for CHEST PAIN, (Reported) Entered as Reported by: JIM MCDONALD on 01/19/21 1126 Pantoprazole Sodium (Pantoprazole Sodium) 40 Mg Tablet.dr, 40 MG PO DAILY, (Reported) Entered as Reported by: GEORGINA ALVAREZ on 05/16/15 1118 Prednisone (Prednisone) 5 Mg Tablet, 0 PO UD Prescribed by: TRICIA BHATTI on 09/11/21 1452 Tamsulosin HCl (Flomax) 0.4 Mg Cap, 0.4 MG PO 1700, (Reported) Entered as Reported by: DESEAN COE on 12/23/18 0731 Tiotropium [place] (Spiriva Respimat 2.5MCG/ACTUATION) 4 Gm Mist.inhal, 2 PUFF IH DAILY, (Reported) Entered as Reported by: JIM MCDONALD on 01/19/21 1126 Review of Systems Review of Systems Constitutional: see HPI Past Rzkfjyf-Hynada-Ghmuig Hx Patient Social History Tobacco Use?: No Use of E-Cig and/or Vaping dev: No Substance use?: No Alcohol Use?: No Immunizations Up To Date Tetanus Booster (TDap): Unknown PED Vaccines UTD: Yes First/Initial COVID19 Vaccinat: NOVEMBER 2020, [employer] Second COVID19 Vaccination Nomi: NOVEMBER 2020, [employer] Third COVID19 Vaccination Date: NOVEMBER 2020, DONALD Seasonal Allergies Seasonal Allergies: No Past Medical History Surgery/Hospitalization HX: COPD DM Surgeries: Yes (CHEST TUBE INSERTION, heart cathx9 stents) Cardiac, Coronary Stent Respiratory: Yes (Uses oxygen at 4 L/min nasal cannula at home) COPD Currently Using CPAP: No Currently Using BIPAP: No Cardiac: Yes Chronic Edema/Swelling, Coronary Artery Disease, Heart Attack, High Cholesterol, Hypertension Neurological: No Neuropathy Reproductive Disorders: No Genitourinary: Yes Gastrointestinal: Yes Hepatitis, Polyps Musculoskeletal: Yes Arthritis, Chronic Back Pain Endocrine: Yes Diabetes, Non-Insulin dep HEENT: No (hemmoraging in back of both eyes-pt see specialist for it) Cataract Cancer: No Psychosocial: No Integumentary: No Blood Disorders: No Family Medical History Patient reports no known family medical history. No Pertinent Family Hx Physical Exam Vital Signs - First Documented Capillary Refill : Less Than 3 Seconds Height: 5'11.00" Weight: 225lbs. 0.0oz. [id number]; 27.00 BMI Method:Stated General Appearance: WD/WN, other (Upon entering the room once he just sat down in the bed he has moderate increased work of breathing. This improves dramatically over the course of several minutes and he is now in no distress.) HEENT: normal ENT inspection, pharynx normal Neck: non-tender, full range of motion, supple, normal inspection Respiratory: chest non-tender, no accessory muscle use, other (Coarse rhonchi bilateral lung carr. Scant expiratory wheezing bilaterally.) Cardiovascular: regular rate, rhythm, no murmur Gastrointestinal: normal bowel sounds, non tender, soft, no organomegaly Extremities: normal range of motion, non-tender, normal inspection, normal capillary refill, other (Trace nonpitting edema bilaterally) Neurologic/Psychiatric: alert, normal mood/affect, oriented x 3 Skin: normal color, warm/dry Progress/Results/Core Measures Suspected Sepsis SIRS Temperature: Pulse: 68 Respiratory Rate: Laboratory Tests 02/25/23 15:20: White Blood Count 18.0H Blood Pressure 111 /74 Mean: 86 Laboratory Tests 02/25/23 15:20: Creatinine 2.07H, Platelet Count 306, Total Bilirubin 0.2 Results/Orders Lab Results Laboratory Tests Test 02/25/23 15:20 Range/Units White Blood Count 18.0 H 4.3-11.0 10^3/uL Red Blood Count 3.77 L 4.30-5.52 10^6/uL Hemoglobin 10.7 L 13.3-17.7 g/dL Hematocrit 34 L 40-54 % Mean Corpuscular Volume 90 80-99 fL Mean Corpuscular Hemoglobin 28 25-34 pg Mean Corpuscular Hemoglobin Concent 32 32-36 g/dL Red Cell Distribution Width 14.0 10.0-14.5 % Platelet Count 306 130-400 10^3/uL Mean Platelet Volume 10.2 9.0-12.2 fL Immature Granulocyte % (Auto) 1 % Neutrophils (%) (Auto) 77 H 42-75 % Lymphocytes (%) (Auto) 14 12-44 % Monocytes (%) (Auto) 7 0-12 % Eosinophils (%) (Auto) 1 0-10 % Basophils (%) (Auto) 0 0-10 % Neutrophils # (Auto) 13.9 H 1.8-7.8 10^3/uL Lymphocytes # (Auto) 2.5 1.0-4.0 10^3/uL Monocytes # (Auto) 1.3 H 0.0-1.0 10^3/uL Eosinophils # (Auto) 0.2 0.0-0.3 10^3/uL Basophils # (Auto) 0.0 0.0-0.1 10^3/uL Immature Granulocyte # (Auto) 0.1 0.0-0.1 10^3/uL Sodium Level 141 135-145 MMOL/L Potassium Level 4.8 3.6-5.0 MMOL/L Chloride Level 107 98-107 MMOL/L Carbon Dioxide Level 23 21-32 MMOL/L Anion Gap 11 5-14 MMOL/L Blood Urea Nitrogen 48 H 7-18 MG/DL Creatinine 2.07 H 0.60-1.30 MG/DL Estimat Glomerular Filtration Rate 34 BUN/Creatinine Ratio 23 Glucose Level 57 *L 70-105 MG/DL Calcium Level 8.8 8.5-10.1 MG/DL Corrected Calcium 9.3 8.5-10.1 MG/DL Total Bilirubin 0.2 0.1-1.0 MG/DL Aspartate Amino Transf (AST/SGOT) 15 5-34 U/L Alanine Aminotransferase (ALT/SGPT) 10 0-55 U/L Alkaline Phosphatase 57 40-136 U/L Troponin I 0.035 H <0.028 NG/ML C-Reactive Protein High Sensitivity 0.15 0.00-0.50 MG/DL Total Protein 6.7 6.4-8.2 GM/DL Albumin 3.4 3.2-4.5 GM/DL SARS-CoV-2 RNA (RT-PCR) Not Detected Not Detecte My Orders Orders - LISSETH,INDY L DO Comprehensive Metabolic Panel (02/25/23 15:03) Ekg Tracing (02/25/23 15:03) Troponin I Jason (02/25/23 15:03) Chest 1 View, Ap/Pa Only (02/25/23 15:03) Cbc With Automated Diff (02/25/23 15:03) Hs C Reactive Protein (02/25/23 15:03) Covid 19 Inhouse Test (02/25/23 15:03) Albuterol/Ipra Inhalation Soln (Duoneb I (02/25/23 15:15) Methylprednisolone Sod Succ (Solu-Medrol (02/25/23 15:15) Svn Small Volume Nebulizer (02/25/23 15:04) Manual Differential (02/25/23 15:20) Furosemide Injection (Lasix Injection) (02/25/23 16:45) Medications Given in ED Current Medications Medications Dose Ordered Sig/[place] Route Start Time Stop Time Status Last Admin Dose Admin Albuterol/ Ipratropium 3 ml ONCE ONCE INH 02/25/23 15:15 02/25/23 15:16 DC 02/25/23 15:19 3 ML Methylprednisolone Sodium Succinate 125 mg ONCE ONCE IVP 02/25/23 15:15 02/25/23 15:16 DC 02/25/23 15:29 125 MG Vital Signs/I&O 02/25/23 02/25/23 02/25/23 14:56 14:56 15:19 Temp 36.8 Pulse 68 B/P (MAP) 111/74 (86) Pulse Ox 96 96 O2 Delivery Nasal Cannula Nasal Cannula Nasal Cannula O2 Flow Rate 4.00 4.00 4.00 Capillary Refill : Less Than 3 Seconds Blood Pressure Mean: 86 ECG Comment Sinus rhythm with a rate of 67 bpm. Normal intervals. Left axis deviation. No ST or T wave abnormalities. No ectopy. No STEMI. Departure Communication (Admissions) Patient is hemodynamically stable at rest however he had an increase his baseli ne oxygen demand. With any activity has desaturations to the mid 80s even on his oxygen. He gets significantly winded and takes him about 15 minutes to recover once he gets back into bed. Chest x-ray shows pulmonary interstitial edema. In talking with him when he was diagnosed with CKD 4 he was taken off his Lasix and just instructed to use it as needed for weight gain. He did not use it for any shortness of breath recently and he had no weight gain so he did not take it. No evidence for pneumonia at this time. He has a leukocytosis which is consistent with his recent prednisone use. He already had a course of Zithromax. I do not think this is infectious in nature and likely related to no use of diuretics. I spoke with Dr. Cantu and Dr. Tucker A repeat patient is stable for admission to the hospital here. They request IV Lasix 40 mg once now and will manage his Lasix going forward. Impression Primary Impression: Pulmonary edema Qualified Codes: J81.0 - Acute pulmonary edema Additional Impressions: Shortness of breath Elevated troponin Disposition: ADMITTED INPATIENT Condition: Stable Admissions Decision to Admit Reason: Admit from ER (General) Departure-Patient Inst. Referrals: MIKEY ZAZUETA APRN (PCP/Family) Primary Care Physician INDY MONTANEZ DO February 25, 2023 15:07
[2023-02-25] MEDS ORDERED: methylPREDNISolone 125 MG (Solu-MEDROL) VIAL IVP ONE (15:15)
[2023-02-25] MEDS ORDERED: RT-ALBUTEROL/IPRATROPIUM 3 ML (DUONEB) VIAL INH ONE (15:15)
--- NOTE | 2023-02-25 15:23 | Diagnostic Imaging Report ---
INDICATION: Dyspnea. TECHNIQUE: Frontal chest obtained at 02:58 p.m. and compared to 10/15/2021. FINDINGS: The heart is mildly enlarged. There is central vascular congestion. There is some right perihilar scarring or atelectasis and volume loss in the right lung. These findings are similar to the prior study. There is no new infiltrate or pleural fluid. There is unchanged right apical pleural thickening. IMPRESSION: Stable volume loss in the right hemithorax with right perihilar scarring or atelectasis and right apical pleural thickening. Central vascular congestion with no new consolidation or pleural fluid. Dictated by: Dictated on workstation # [id number]
[2023-02-25 15:27] LABS: BASOPHILS % (AUTO) 0 % (0-10); EOSINOPHILS # (AUTO) 0.2 10^3/uL (0.0-0.3); EOSINOPHILS % (AUTO) 1 % (0-10); HEMATOCRIT 34 % (40-54); HEMOGLOBIN 10.7 g/dL (13.3-17.7); LYMPHOCYTES # (AUTO) 2.5 10^3/uL (1.0-4.0); LYMPHOCYTES % (AUTO) 14 % (12-44); MEAN CORPUSCULAR HEMOGLOBIN 28 pg (25-34); MEAN CORPUSCULAR HGB CONC 32 g/dL (32-36); MEAN CORPUSCULAR VOLUME 90 fL (80-99); MEAN PLATELET VOLUME 10.2 fL (9.0-12.2); MONOCYTES # (AUTO) 1.3 10^3/uL (0.0-1.0); MONOCYTES % (AUTO) 7 % (0-12); NEUTROPHILS # (AUTO) 13.9 10^3/uL (1.8-7.8); NEUTROPHILS % (AUTO) 77 % (42-75); PLATELET COUNT 306 10^3/uL (130-400)
[2023-02-25 15:36] LABS: ALBUMIN 3.4 GM/DL (3.2-4.5); POTASSIUM 4.8 MMOL/L (3.6-5.0)
[2023-02-25 15:37] LABS: CALCIUM 8.8 MG/DL (8.5-10.1)
[2023-02-25 15:38] LABS: TOTAL PROTEIN 6.7 GM/DL (6.4-8.2)
[2023-02-25 15:40] LABS: BILIRUBIN,TOTAL 0.2 MG/DL (0.1-1.0)
[2023-02-25 15:42] LABS: CREATININE SERUM 2.07 MG/DL (0.60-1.30)
[2023-02-25] MEDS ORDERED: FUROSEMIDE 40 MG/4 ML INJ (LASIX) IVP ONE (16:45)
[2023-02-25 16:46] LABS: NEUTROPHILS % (MANUAL) 76 %
[2023-02-25 16:47] LABS: ATYPICAL LYMPHOCYTES 1 %; LYMPHOCYTES % (MANUAL) 16 %; MONOCYTES % (MANUAL) 4 %; REACTIVE LYMPHOCYTES 3 %; SCHISTOCYTES SLIGHT
[2023-02-25] MEDS ORDERED: diphenhydrAMINE 50 MG/ML INJ (BENADRYL) IVP PRN (17:45)
[2023-02-25] MEDS ORDERED: ONDANSETRON 4 MG/2 ML (SDV) Z0FRAN IV PRN (17:45)
[2023-02-25] MEDS ORDERED: MELATONIN 3 MG TABLET PO PRN (17:45)
[2023-02-25] MEDS ORDERED: MILK OF MAGNESIA 400 MG/5 ML 30 ML UDC PO PRN (17:45)
[2023-02-25] MEDS ORDERED: ONDANSETRON 4 MG (ZOFRAN) ORAL DISSOLVE TAB PO PRN (17:45)
[2023-02-25] MEDS ORDERED: ANTACID SUSP 30 ML UDC (MYLANTA) PO PRN (17:45)
[2023-02-25] MEDS ORDERED: ACETAMINOPHEN 325 MG TABLET PO PRN (17:45)
[2023-02-25] MEDS ORDERED: polyethylene glycoL POWDER 17 GM (MIRALAX) PACK PO PRN (17:45)
[2023-02-25] MEDS ORDERED: HYDROmorphone 2 MG/ML VIAL (DILAUDID) IV PRN (17:45)
[2023-02-25] MEDS ORDERED: diphenhydrAMINE 25 MG TAB (BENADRYL) PO PRN (17:45)
[2023-02-25] MEDS ORDERED: CALCIUM CARBONATE 500 MG (TUMS) TAB.CHEW PO PRN (17:45)
[2023-02-25] MEDS ORDERED: LACTULOSE SYRUP 10GM/15ML (ENULOSE) 30ML UDC PO PRN (17:45)
[2023-02-25] MEDS ORDERED: BISACODYL 10 MG SUPP (DULCOLAX) PR PRN (17:45)
[2023-02-25] MEDS ORDERED: RT-ALBUTEROL/IPRATROPIUM 3 ML (DUONEB) VIAL INH PRN (19:15)
[2023-02-25] MEDS: RT-ALBUTEROL/IPRATROPIUM 3 ML (DUONEB) VIAL INH SCH (20:11)
[2023-02-25] MEDS: DOCUSATE SODIUM 100 MG (COLACE) CAP PO SCH (20:43)
[2023-02-25] MEDS: SENNOSIDES 8.6 MG (SENOKOT) TAB PO SCH (20:44)
[2023-02-25] MEDS: FUROSEMIDE 40 MG/4 ML INJ (LASIX) IV SCH (20:45)
[2023-02-26] VITALS (8 sets, daily range): BP systolic 128–175; BP diastolic 54–78
[2023-02-26 05:20] LABS: BASOPHILS % (AUTO) 0 % (0-10); EOSINOPHILS % (AUTO) 0 % (0-10); HEMATOCRIT 31 % (40-54); HEMOGLOBIN 9.6 g/dL (13.3-17.7); LYMPHOCYTES # (AUTO) 0.5 10^3/uL (1.0-4.0); LYMPHOCYTES % (AUTO) 5 % (12-44); MEAN CORPUSCULAR HEMOGLOBIN 28 pg (25-34); MEAN CORPUSCULAR HGB CONC 31 g/dL (32-36); MEAN CORPUSCULAR VOLUME 90 fL (80-99); MEAN PLATELET VOLUME 10.8 fL (9.0-12.2); MONOCYTES # (AUTO) 0.3 10^3/uL (0.0-1.0); MONOCYTES % (AUTO) 2 % (0-12); NEUTROPHILS # (AUTO) 10.2 10^3/uL (1.8-7.8); NEUTROPHILS % (AUTO) 92 % (42-75); PLATELET COUNT 251 10^3/uL (130-400)
--- NOTE | 2023-02-26 05:57 | History & Physical ---
History of Present Illness HPI/Chief Complaint Chief complaint: Acute hypoxic respiratory failure due to pulmonary edema HPI: This is a 72-year-old male current smoker who presented to the ER with shortness of breath due to recent decrease in diuretics per rug cleaner Dr. Tucker. He has a longstanding history of chronic kidney disease stage IV and they were trying to minimize the diuretics to improve kidney function but he began having shortness of breath and pain to the ER found to be in pulmonary edema requiring IV Lasix. Cardiology is following along. Source: patient Exam Limitations: no limitations Date Seen 02/26/23 Time Seen by a Provider: 11:00 Attending Physician Jasmin Bland Aprn PCP Admitting Physician: Ct Sabillon DO Attending Physician: Ct Sabillon DO Referring Physician Date of Admission February 25, 2023 at 17:42 Home Medications & Allergies Home Medications Reviewed patient Home Medication Reconciliation performed by pharmacy medication reconciliations veterinary surgery technician and/or nursing. Patients Allergies have been reviewed. Allergies Allergies Coded Allergies liraglutide (Verified Allergy, Unknown, 09/06/21) Past Crnrlng-Symkvh-Vdbpki Hx Past Med/Social Hx: Reviewed Nursing Past Med/Soc Hx, Reviewed and Corrections made Patient Social History Marrital Status: single Employed/Student: retired Drug of Choice: Occasional cannabis Smoking Status: Current Everyday Smoker Type Used: Cigarettes Recent Hopitalizations: No Recent Infectious Disease Expo: No Immunizations Up To Date Tetanus Booster (TDap): Unknown Pediatric: Yes Date of Pneumonia Vaccine: Jul 25, 2017 Date of Influenza Vaccine: Jul 08, 2021 Seasonal Allergies Seasonal Allergies: No Past Medical History Surgeries: Cardiac, Coronary Stent Respiratory: COPD, Emphysema, Pneumonia Currently Using CPAP: No Currently Using BIPAP: No Cardiac: Chronic Edema/Swelling, Coronary Artery Disease, Heart Attack, High Cholesterol, Hypertension Neurological: Neuropathy Reproductive: No Gastrointestinal: Hepatitis, Polyps Musculoskeletal: Arthritis, Chronic Back Pain Endocrine: Diabetes, Non-Insulin dep HEENT: Cataract History of Blood Disorders: No Family History Patient reports no known family medical history. No Pertinent Family Hx Review of Systems Constitutional: see HPI Respiratory: dyspnea on exertion, short of breath Physical Exam Physical Exam Vital Signs Vital Signs - First Documented 02/25/23 17:35 Resp 20 Capillary Refill : Less Than 3 Seconds Height, Weight, BMI Height: 5'11.00" Weight: 225lbs. 0.0oz. 102.413055hs; 27.80 BMI Method:Stated General Appearance: No Apparent Distress, WD/WN, Chronically ill Eyes: Bilateral Eye Normal Inspection, Bilateral Eye PERRL HEENT: PERRL/EOMI, Normal ENT Inspection, Pharynx Normal Neck: Full Range of Motion, Normal Inspection, Non Tender, Supple, Carotid Bruit Respiratory: Chest Non Tender, No Accessory Muscle Use, No Respiratory Distress, Crackles, Decreased Breath Sounds Cardiovascular: Regular Rate, Rhythm, No Edema, No Gallop, No JVD, No Murmur, Normal Peripheral Pulses Gastrointestinal: Normal Bowel Sounds, No Organomegaly, No Pulsatile Mass, Non Tender, Soft Back: Normal Inspection, No CVA Tenderness, No Vertebral Tenderness Extremity: Normal Capillary Refill, Normal Inspection, Normal Range of Motion, Non Tender, No Calf Tenderness, No Pedal Edema Neurologic/Psychiatric: Alert, Oriented x3, No Motor/Sensory Deficits, Normal Mood/Affect Skin: Normal Color, Warm/Dry Lymphatic: No Adenopathy Results Results/Procedures Labs Laboratory Tests 02/25/23 15:20 02/26/23 05:04 Patient resulted labs reviewed. Assessment/Plan Admission Diagnosis Assessment: Acute hypoxic respiratory failure Chronic respiratory failure maintained on oxygen at home Chronic kidney disease stage IV managed by nephrology Hypertension COPD Current smoker Plan: IV diuresis Oxygen Nebulizers Moved to fourth floor Monitor closely Admission Status: Observation CT SABILLON DO February 26, 2023 05:57
[2023-02-26 06:06] LABS: BILIRUBIN,TOTAL 0.1 MG/DL (0.1-1.0); CALCIUM 8.2 MG/DL (8.5-10.1); CREATININE SERUM 2.46 MG/DL (0.60-1.30); POTASSIUM 4.8 MMOL/L (3.6-5.0)
[2023-02-26] MEDS: RT-ALBUTEROL/IPRATROPIUM 3 ML (DUONEB) VIAL INH SCH ×4 (06:41→19:01)
[2023-02-26] MEDS ORDERED: inSUlin (REGULAR) HUMAN 1 UNIT/0.01 ML (CHARGE PER UNIT) SC ONE (06:45)
[2023-02-26] MEDS: FUROSEMIDE 40 MG/4 ML INJ (LASIX) IV SCH ×2 (09:10→20:19)
[2023-02-26] MEDS: DOCUSATE SODIUM 100 MG (COLACE) CAP PO SCH ×2 (09:10→20:19)
[2023-02-26] MEDS: SENNOSIDES 8.6 MG (SENOKOT) TAB PO SCH ×2 (09:11→20:19)
[2023-02-26] MEDS ORDERED: BUDE10.7 IH (11:22)
[2023-02-26] MEDS ORDERED: CYAN-41 PO (11:22)
[2023-02-26] MEDS ORDERED: ALOG6.25 PO (11:22)
[2023-02-26] MEDS ORDERED: FOLI0.4T6 PO (11:22)
[2023-02-26] MEDS ORDERED: GLIP5TAB13 PO (11:22)
[2023-02-26] MEDS ORDERED: FURO20TA4 PO (11:22)
[2023-02-26] MEDS ORDERED: NITROGLYCERIN 0.4 MG SL TABS BTL 25'S SL PRN (11:45)
--- NOTE | 2023-02-26 14:26 | Consultation-Cardiology ---
HPI-Cardiology Cardiology Consultation Date of Consultation 02/26/23 Date of Admission Time Seen by Provider: 08:05 Indication: increased dyspnea HPI Patient is a 72 y/o male with history of COPD, CHF, CKD, presented to the ER with complaints of increased dyspena and productive cough for the last week. Reports brief episode of chest pain last week, now resolved. Denies any further episode of chest pain. Denies any dizziness or lightheadedness. Patient has been noticing increasing dyspnea on exertion, orthopnea, reported difficulty laying down due to shortness of breath Home Medications & Allergies Allergies: Coded Allergies: liraglutide (Verified Allergy, Unknown, 09/06/21) Home Medication List Reviewed: Yes [id number] Hx Patient Social History Marital Status: Drug of Choice: Occasional cannabis Smoking Status: Current Everyday Smoker Type Used: Cigarettes Recent Hopitalizations: No Have you traveled recently?: No Alcohol Use?: No Immunizations Up To Date Tetanus Booster (TDap): Unknown Date of Pneumonia Vaccine: Jul 25, 2017 Date of Influenza Vaccine: Jul 08, 2021 Past Medical History COPD, CHF, HTN, CKD Family Medical History Significant Family History: No Pertinent Family Hx Family History: Patient reports no known family medical history. Review of Systems-General Review of Systems Constitutional: see HPI, malaise EENTM: see HPI, no symptoms reported Respiratory: see HPI, cough, dyspnea on exertion, orthopnea, phlegm, short of breath Cardiovascular: see HPI, chest pain; No edema; Hx of Intervention, vascular heart diseas Genitourinary: see HPI Musculoskeletal: see HPI Skin: see HPI Reviewed Test Results Reviewed Test Results Lab Laboratory Tests 02/25/23 15:20: White Blood Count 18.0H, Red Blood Count 3.77L, Hemoglobin 10.7L, Hematocrit 34L , Mean Corpuscular Volume 90, Mean Corpuscular Hemoglobin 28, Mean Corpuscular Hemoglobin Concent 32, Red Cell Distribution Width 14.0, Platelet Count 306, Mean Platelet Volume 10.2, Immature Granulocyte % (Auto) 1, Neutrophils (%) (Auto) 77H, Lymphocytes (%) (Auto) 14, Monocytes (%) (Auto) 7, Eosinophils (%) (Auto) 1, Basophils (%) (Auto) 0, Neutrophils # (Auto) 13.9H, Lymphocytes # (Auto) 2.5, Monocytes # (Auto) 1.3H, Eosinophils # (Auto) 0.2, Basophils # (Auto) 0.0, Immature Granulocyte # (Auto) 0.1, Neutrophils % (Manual) 76, Lymphocytes % (Manual) 16, Monocytes % (Manual) 4, Atypical Lymphocytes 1, Reactive Lymphocytes 3, Schistocytes SLIGHT, Sodium Level 141, Potassium Level 4.8, Chloride Level 107, Carbon Dioxide Level 23, Anion Gap 11, Blood Urea N itrogen 48H, Creatinine 2.07H, Estimat Glomerular Filtration Rate 34, BUN/Creatinine Ratio 23, Glucose Level 57*L, Calcium Level 8.8, Corrected Calcium 9.3, Total Bilirubin 0.2, Aspartate Amino Transf (AST/SGOT) 15, Alanine Aminotransferase (ALT/SGPT) 10, Alkaline Phosphatase 57, Troponin I 0.035H, C- Reactive Protein High Sensitivity 0.15, Total Protein 6.7, Albumin 3.4, SARS-CoV-2 RNA (RT-PCR) Not Detected 02/25/23 18:53: Glucometer 141H 02/26/23 05:04: White Blood Count 11.0, Red Blood Count 3.45L, Hemoglobin 9.6L, Hematocrit 31L, Mean Corpuscular Volume 90, Mean Corpuscular Hemoglobin 28, Mean Corpuscular Hemoglobin Concent 31L, Red Cell Distribution Width 14.1, Platelet Count 251, Mean Platelet Volume 10.8, Immature Granulocyte % (Auto) 1, Neutrophils (%) (Auto) 92H, Lymphocytes (%) (Auto) 5L, Monocytes (%) (Auto) 2, Eosinophils (%) (Auto) 0, Basophils (%) (Auto) 0, Neutrophils # (Auto) 10.2H, Lymphocytes # (Auto) 0.5L, Monocytes # (Auto) 0.3, Eosinophils # (Auto) 0.0, Basophils # (Auto) 0.0, Immature Granulocyte # (Auto) 0.1, Sodium Level 134L, Potassium Level 4.8, Chloride Level 102, Carbon Dioxide Level 20L, Anion Gap 12, Blood Urea Nitrogen 56H, Creatinine 2.46H, Estimat Glomerular Filtration Rate 27, BUN/Creatinine Ratio 23, Glucose Level 472*H, Calcium Level 8.2L, Corrected Calcium 9.0, Total Bilirubin 0.1, Aspartate Amino Transf (AST/SGOT) 11, Alanine Aminotransferase (ALT/SGPT) 8, Alkaline Phosphatase 55, Troponin I < 0.028, Total Protein 6.0L, Albumin 3.0L 02/26/23 06:19: Glucometer 376H Physical Exam Physical Exam Vital Signs Vital Signs - First Documented 02/25/23 17:35 Resp 20 Capillary Refill : Less Than 3 Seconds Height, Weight, BMI Height: 5'11.00" Weight: 225lbs. 0.0oz. 102.249568on; 27.80 BMI Method:Stated General Appearance: No Apparent Distress, WD/WN HEENT: PERRL/EOMI, Normal ENT Inspection Neck: Full Range of Motion, Normal Inspection, Non Tender, Supple; No Carotid Bruit Respiratory: Chest Non Tender, No Accessory Muscle Use, No Respiratory Distress, Crackles, Decreased Breath Sounds, Wheezing Cardiovascular: Regular Rate, Rhythm, No Gallop, No JVD, No Murmur, Normal Peripheral Pulses Gastrointestinal: Non Tender, Soft Extremity: Non Tender, No Calf Tenderness Neurologic/Psychiatric: Alert, Oriented x3 A/P-Cardiology Admission Diagnosis Increased dyspnea Elevated troponin CAD COPD Assessment/Plan Increased dyspnea, likely multifactorial. CXR done suggestive of acute pulmo nary edema. Patient will be starting on diuretics, continue to monitor response Evaluate 2D echocardiogram Minimally elevated troponin, Repeat troponin was negative. No myocardial infarction was noted, no acute EKG changes Troponin returned to normal, probably lab error AE COPD, management per medical services. Congestive heart failure, history of diastolic dysfunction. Most recent 2D Echo done May 2022 showing LV normal in size, EF 50-55%, mild MR. Peripheral arterial disease, Angiogram was done on December 23, 2018 showed heavily calcified right SFA with moderate to severe stenosis at the mid section, total occlusion below the trifurcation fairly small arteries, evaluation of the left side showed heavily calcified left SFA with moderate severe stenosis at the mid portion with total occlusion below the trifurcation, referred to Dr. Turner, reports underwent balloon angioplasty. And underwent intervention with Dr. Gonzalez had he angioplasty in August 27, 2021 Coronary artery disease-history of multiple stents in the past. Cardiac catheterization was done in May 2014 which showed heavily calcified LAD with 2 areas of 50 percent stenosis in the proximal and mid LAD, distally there is a 50-60 percent stenosis. Nonobstructive disease. Calcified circumflex artery with patent stent, known to have 3.016 mm stent, had 50 percent in-stent restenosis, also known to have 2.518 mm Promus stent and 2.028 mm Mini Vision stent in the circumflex artery. The right coronary artery is calcified with multiple stents, known to have 2.2523 mm mini vision stent, 2.2512 mm mini vision stents 2 to the right coronary artery, 2.7532 mm Liberte stent, 50 percent in-stent restenosis. Repeat cardiac catheterization was done on May 18, 2015 in [facility]. Reported to have 90 percent mid LAD stenosis had a stent using Promus Premier 2.5 time 12 mm to the mid LAD, diagonal artery has 95 percent stenosis that was 2 mm and treated medically, the other stents were patent. Repeat cardiac catheterization was done on December 23, 2018 after having an abnormal stress test which showed heavily calcified coronary system with multiple stents in the LAD, circumflex and right coronary artery with [id number] disease in the stent nonobstructive disease, severe stenosis at the first diagonal branch and right PDA, small arteries not amendable to intervention. Most recent cardiac catheterization done May 16, 2021 showing moderate disease in the mid RCA with occlusion to the distal right PDA, small artery, not amendable to intervention. Patent multiple stents in the prox and mid LAD and prox mid cx with mild to mod in-stent restenosis. Last stress test was done on May 14, 2021 and it was abnormal. Cardiac catheterization was carried out. Chronic renal insufficiency, patient reports diagnosed recently with stage IV CKD, recently changed diuretic to take PRN, follows with nephrology. Hypertension, restart home blood pressure medication and continue to monitor. Hyperlipidemia, maintained on Lipitor 40 mg daily as outpatient. Diabetes mellitus, followed and managed by primary care physician Tobaccoism, still smoking about a pack a day, he was once again educated and instructed on smoking cessation. Mild bilateral carotid stenosis,mild nonobstructive disease per carotid duplex done August 2022. Thank you for allowing us to participate in the management of Mr. Dias. This is Estefany Stinson PA-C, as a scribe for Dr. Pizarro. Patient was seen and evaluated with Estefany, I interviewed and examined the patient, discussed the management plan with Estefany and agree with the current scribed note Patient was admitted for increasing dyspnea, noted to have minimally elevated troponin, most probably has underlying acute exacerbation COPD with pulmonary edema, multifactorial. Starting more aggressive diuresis and monitor tolerance and response Repeat 2D echo showed normal LV function. Normal PA pressure Has extensive coronary artery disease with minimal troponin elevation. Con servative management is recommended at this time. Last stress test was done in April 2021, will consider stress test in the fut ure. Educated on smoking cessation. ESTEFANY GRANT February 26, 2023 14:26 FADUMO PIZARRO MD February 26, 2023 15:29
[2023-02-26] MEDS: TAMSULOSIN 0.4 MG (FLOMAX) CAP PO SCH (16:27)
[2023-02-26] MEDS: MONTELUKAST 10 MG (SINGULAIR) TAB PO SCH (16:27)
[2023-02-27] VITALS (7 sets, daily range): BP systolic 102–119; BP diastolic 54–69
--- NOTE | 2023-02-27 05:17 | Progress Note ---
Subjective Date Seen by a Provider: Feb 27, 2023 Time Seen by a Provider: 11:00 Subjective/Events-last exam Patient about the same Breathing better Repeat chest x-ray indicated Empirically cover for bronchitis versus pneumonia Severe COPD makes it difficult to ascertain if it is just pulmonary edema or airspace disease Review of Systems Pulmonary: Dyspnea, Cough Objective Exam Last Set of Vital Signs Vital Signs Date Time Temp Pulse Resp B/P (MAP) Pulse Ox O2 Delivery O2 Flow Rate FiO2 02/27/23 04:00 36.4 78 18 117/57 (77) 96 Nasal Cannula 4.50 Capillary Refill : Less Than 3 Seconds I&O Intake and Output 02/27/23 00:00 Intake Total 2110 ml Output Total 2700 ml Balance -590 ml Intake Oral 2110 ml Output Urine Total 2700 ml # Voids 5 # Bowel Movements 1 General: Alert, Oriented X3, Cooperative, No Acute Distress Lungs: Other (Coarse and wheezing) Psych/Mental Status: Mental Status NL, Mood NL Results Lab Laboratory Tests 02/26/23 06:19: Glucometer 376H 02/26/23 16:15: Glucometer 148H 02/26/23 20:07: Glucometer 181H 02/27/23 04:55: Assessment/Plan Assessment/Plan Assess & Plan/Chief Complaint Assessment: Acute hypoxic respiratory failure Chronic respiratory failure maintained on oxygen at home Chronic kidney disease stage IV managed by nephrology Hypertension COPD Current smoker Acute bronchitis versus early airspace disease Plan: IV diuresis Oxygen Nebulizers Recheck chest x-ray Monitor closely Empiric antibiotics MARY MCDUFFIE DO Feb 27, 2023 05:17
[2023-02-27 05:18] LABS: BASOPHILS % (AUTO) 0 % (0-10); EOSINOPHILS # (AUTO) 0.2 10^3/uL (0.0-0.3); EOSINOPHILS % (AUTO) 1 % (0-10); HEMATOCRIT 32 % (40-54); LYMPHOCYTES # (AUTO) 1.4 10^3/uL (1.0-4.0); LYMPHOCYTES % (AUTO) 8 % (12-44); MEAN CORPUSCULAR HEMOGLOBIN 28 pg (25-34); MEAN CORPUSCULAR HGB CONC 32 g/dL (32-36); MEAN CORPUSCULAR VOLUME 88 fL (80-99); MEAN PLATELET VOLUME 10.6 fL (9.0-12.2); MONOCYTES # (AUTO) 1.2 10^3/uL (0.0-1.0); MONOCYTES % (AUTO) 7 % (0-12); NEUTROPHILS # (AUTO) 15.4 10^3/uL (1.8-7.8); NEUTROPHILS % (AUTO) 84 % (42-75); PLATELET COUNT 267 10^3/uL (130-400); WHITE BLOOD COUNT 18.3 10^3/uL (4.3-11.0)
[2023-02-27 05:49] LABS: ALBUMIN 3.2 GM/DL (3.2-4.5)
[2023-02-27 05:50] LABS: POTASSIUM 4.4 MMOL/L (3.6-5.0)
[2023-02-27 05:52] LABS: TOTAL PROTEIN 6.2 GM/DL (6.4-8.2)
[2023-02-27 05:54] LABS: BILIRUBIN,TOTAL 0.2 MG/DL (0.1-1.0)
[2023-02-27 05:56] LABS: CREATININE SERUM 2.55 MG/DL (0.60-1.30)
[2023-02-27] MEDS: UMECLIDINIUM BROMIDE (INCRUSE ELLIPTA) 7'S IH SCH (06:42)
[2023-02-27] MEDS: FLUTICASONE/VILANTEROL 200 MCG 14'S (BREO) IH SCH (06:42)
[2023-02-27] MEDS: RT-ALBUTEROL/IPRATROPIUM 3 ML (DUONEB) VIAL INH SCH ×5 (06:42→20:27)
--- NOTE | 2023-02-27 08:42 | Cardiology Progress Note ---
Subjective Date Seen by Provider: Feb 27, 2023 Time Seen by Provider: 08:40 Subjective/Events-last exam Patient was seen at bedside, still having cough and shortness of breath Review of Systems General: No Chills, No Night Sweats; Fatigue; No Malaise, No Appetite, No Other HEENT: No Head Aches, No Visual Changes, No Eye Pain, No Ear Pain, No Dysphasia, No Sinus Congestion, No Post Nasal Drip, No Sore Throat, No Other Pulmonary: Dyspnea, Cough; No Pleuritic Chest Pain, No Other Cardiovascular: Edema; No: Chest Pain, Palpitations, Orthopnea, Paroxysmal Noc. Dyspnea, Lt Headedness, Other Objective-Cardiology Exam Last Set of Vital Signs Vital Signs 02/27/23 07:24 Temp 36.5 Pulse 79 Resp 16 B/P (MAP) 103/54 (70) Pulse Ox 92 O2 Delivery Nasal Cannula O2 Flow Rate 4.50 I&O Intake and Output 02/27/23 00:00 Intake Total 2110 ml Output Total 2700 ml Balance -590 ml Intake Oral 2110 ml Output Urine Total 2700 ml # Voids 5 # Bowel Movements 1 General: Alert, Oriented X3, Cooperative HEENT: Atraumatic, PERRLA Neck: Supple, No JVD, No Thyromegaly Lungs: Normal Air Movement, Other (Bilateral rhonchi) Heart: Regular Rate, Normal S1, Normal S2, No Murmurs Abdomen: Normal Bowel Sounds, Soft, No Tenderness, No Hepatosplenomegaly, No Masses Extremities: No Clubbing, No Cyanosis, Normal Pulses, No Tenderness/Swelling, Other (Peripheral edema) Skin: No Rashes, No Breakdown, No Significant Lesion Neuro: Normal Gait, Normal Speech, Strength at 5/5 X4 Ext, Normal Tone, Sensation Intact Psych/Mental Status: Mental Status NL, Mood NL Results Lab Laboratory Tests 02/27/23 04:55 A/P-Cardiology Admission Diagnosis Increased dyspnea Elevated troponin CAD COPD Assessment/Plan Shortness of breath, likely multifactorial. CXR done suggestive of acute pulmonary edema. Responding well to diuretics 2D echo was done on February 26, 2023 with ejection fraction 55 to 60%, insufficient Doppler signal to evaluate pulmonary artery pressure Minimally elevated troponin, Repeat troponin was negative. No myocardial infarction was noted, no acute EKG changes Troponin returned to normal, nonspecific elevation. Not on myocardial infarction Conservative management is recommended AE COPD, management per medical services. Congestive heart failure, history of diastolic dysfunction. Most recent 2D Echo done May 2022 showing LV normal in size, EF 50-55%, mild MR. Peripheral arterial disease, Angiogram was done on December 23, 2018 showed heavily calcified right SFA with moderate to severe stenosis at the mid section, total occlusion below the trifurcation fairly small arteries, evaluation of the left side showed heavily calcified left SFA with moderate severe stenosis at the mid portion with total occlusion below the trifurcation, referred to Dr. Turner, reports underwent balloon angioplasty. And underwent intervention with Dr. Gonzalez had he angioplasty in August 27, 2021 Coronary artery disease-history of multiple stents in the past. Cardiac catheterization was done in May 2014 which showed heavily calcified LAD with 2 areas of 50 percent stenosis in the proximal and mid LAD, distally there is a 50-60 percent stenosis. Nonobstructive disease. Calcified circumflex artery with patent stent, known to have 3.016 mm stent, had 50 percent in-stent restenosis, also known to have 2.518 mm Promus stent and 2.028 mm Mini Vision stent in the circumflex artery. The right coronary artery is calcified with multiple stents, known to have 2.2523 mm mini vision stent, 2.2512 mm mini vision stents 2 to the right coronary artery, 2.7532 mm Liber te stent, 50 percent in-stent restenosis. Repeat cardiac catheterization was done on May 18, 2015 in [facility]. Reported to have 90 percent mid LAD stenosis had a stent using Promus Premier 2.5 time 12 mm to the mid LAD, diagonal artery has 95 percent stenosis that was 2 mm and treated medically, the other stents were patent. Repeat cardiac catheterization was done on December 23, 2018 after having an abnormal stress test which showed heavily calcified coronary system with multiple stents in the LAD, circumflex and right coronary artery with [id number] disease in the stent nonobstructive disease, severe stenosis at the first diagonal branch and right PDA, small arteries not amendable to intervention. Most recent cardiac catheterization done May 16, 2021 showing moderate dis ease in the mid RCA with occlusion to the distal right PDA, small artery, not amendable to intervention. Patent multiple stents in the prox and mid LAD and prox mid cx with mild to mod in-stent restenosis. Last stress test was done on May 14, 2021 and it was abnormal. Cardiac catheterization was carried out. Chronic renal insufficiency, patient reports diagnosed recently with stage IV CKD, recently changed diuretic to take PRN, follows with nephrology. Hypertension, restart home blood pressure medication and continue to monitor. Hyperlipidemia, maintained on Lipitor 40 mg daily as outpatient. Diabetes mellitus, followed and managed by primary care physician Tobaccoism, still smoking about a pack a day, he was once again educated and instructed on smoking cessation. Mild bilateral carotid stenosis,mild nonobstructive disease per carotid duplex done August 2022. FADUMO TALAVERA MD Feb 27, 2023 08:42
[2023-02-27] MEDS: DOCUSATE SODIUM 100 MG (COLACE) CAP PO SCH ×2 (09:07→21:05)
[2023-02-27] MEDS: FUROSEMIDE 40 MG/4 ML INJ (LASIX) IV SCH ×2 (09:07→21:05)
[2023-02-27] MEDS: PANTOPRAZOLE 40 MG (PROTONIX) TAB PO SCH (09:07)
[2023-02-27] MEDS: SENNOSIDES 8.6 MG (SENOKOT) TAB PO SCH ×2 (09:07→21:05)
[2023-02-27] MEDS: ASPIRIN E.C. 81 MG (ECOTRIN) TAB PO SCH (09:08)
[2023-02-27] MEDS: CYANOCOBALAMIN 1,000 MCG (VITAMIN B-12) TABLET PO SCH (09:08)
[2023-02-27] MEDS: CLOPIDOGREL 75 MG (PLAVIX) TABLET PO SCH (09:08)
[2023-02-27] MEDS: FOLIC ACID 1 MG TAB PO SCH (09:08)
[2023-02-27] MEDS: FLUTICASONE NASAL SPRAY (FLONASE) 16 GM BTL NS SCH (09:59)
--- NOTE | 2023-02-27 11:54 | Diagnostic Imaging Report ---
INDICATION: Reactive airway disease with wheezing. EXAMINATION: Portable chest, 11:15 a.m. FINDINGS: There is some volume loss in the right lung. There is some atelectasis in the suprahilar region of the right lung with suspected bullae at the right apex. There are no infiltrates, effusions, or pneumothoraces. IMPRESSION: Bullous change in the right apex with overall volume loss in the right lung compared to the left. No acute abnormality is seen. No significant change compared to 02/25/2023. Dictated by: Dictated on workstation # [id number]
[2023-02-27] MEDS: CEFEPIME INJECTION 1,000 MG in NS (IVPB) 50 ML IV SCH ×2 (13:22→21:05)
[2023-02-27] MEDS: TAMSULOSIN 0.4 MG (FLOMAX) CAP PO SCH (17:07)
[2023-02-27] MEDS: MONTELUKAST 10 MG (SINGULAIR) TAB PO SCH (17:07)
[2023-02-28 03:29] VITALS: BP 114/53
[2023-02-28 06:08] LABS: BASOPHILS % (AUTO) 0 % (0-10); EOSINOPHILS # (AUTO) 0.1 10^3/uL (0.0-0.3); EOSINOPHILS % (AUTO) 1 % (0-10); HEMATOCRIT 30 % (40-54); HEMOGLOBIN 9.8 g/dL (13.3-17.7); LYMPHOCYTES # (AUTO) 1.2 10^3/uL (1.0-4.0); LYMPHOCYTES % (AUTO) 8 % (12-44); MEAN CORPUSCULAR HEMOGLOBIN 29 pg (25-34); MEAN CORPUSCULAR HGB CONC 33 g/dL (32-36); MEAN CORPUSCULAR VOLUME 88 fL (80-99); MEAN PLATELET VOLUME 11.6 fL (9.0-12.2); MONOCYTES # (AUTO) 1.4 10^3/uL (0.0-1.0); MONOCYTES % (AUTO) 9 % (0-12); NEUTROPHILS # (AUTO) 12.5 10^3/uL (1.8-7.8); NEUTROPHILS % (AUTO) 82 % (42-75); PLATELET COUNT 249 10^3/uL (130-400); WHITE BLOOD COUNT 15.3 10^3/uL (4.3-11.0)
[2023-02-28 06:26] LABS: BILIRUBIN,TOTAL 0.5 MG/DL (0.1-1.0); CALCIUM 8.6 MG/DL (8.5-10.1); CREATININE SERUM 2.6 MG/DL (0.60-1.30); TOTAL PROTEIN 6.1 GM/DL (6.4-8.2)
[2023-02-28] MEDS: FLUTICASONE/VILANTEROL 200 MCG 14'S (BREO) IH SCH (07:22)
[2023-02-28] MEDS: UMECLIDINIUM BROMIDE (INCRUSE ELLIPTA) 7'S IH SCH (07:22)
[2023-02-28] MEDS: RT-ALBUTEROL/IPRATROPIUM 3 ML (DUONEB) VIAL INH SCH ×2 (07:22→10:56)
[2023-02-28 08:43] VITALS: BP 110/51
[2023-02-28] MEDS: FUROSEMIDE 40 MG/4 ML INJ (LASIX) IV SCH (08:49)
[2023-02-28] MEDS: PANTOPRAZOLE 40 MG (PROTONIX) TAB PO SCH (08:50)
[2023-02-28] MEDS: CYANOCOBALAMIN 1,000 MCG (VITAMIN B-12) TABLET PO SCH (08:50)
[2023-02-28] MEDS: FOLIC ACID 1 MG TAB PO SCH (08:50)
[2023-02-28] MEDS: SENNOSIDES 8.6 MG (SENOKOT) TAB PO SCH (08:50)
[2023-02-28] MEDS: CLOPIDOGREL 75 MG (PLAVIX) TABLET PO SCH (08:50)
[2023-02-28] MEDS: ASPIRIN E.C. 81 MG (ECOTRIN) TAB PO SCH (08:50)
[2023-02-28] MEDS: DOCUSATE SODIUM 100 MG (COLACE) CAP PO SCH (08:50)
[2023-02-28] MEDS: FLUTICASONE NASAL SPRAY (FLONASE) 16 GM BTL NS SCH (08:51)
[2023-02-28] MEDS: CEFEPIME INJECTION 1,000 MG in NS (IVPB) 50 ML IV SCH (08:51)
[2023-02-28] MEDS ORDERED: CEFD300C3 PO (11:23)
[2023-02-28] MEDS ORDERED: FURO-125 PO (11:23)
--- NOTE | 2023-02-28 11:24 | Discharge Summary ---
Diagnosis/Chief Complaint Date of Admission February 25, 2023 at 17:42 Date of Discharge Discharge Date: Feb 28, 2023 Discharge Diagnosis Assessment: Acute hypoxic respiratory failure Chronic respiratory failure maintained on oxygen at home Chronic kidney disease stage IV managed by nephrology Hypertension COPD Current smoker Acute bronchitis versus early airspace disease Plan: IV diuresis Oxygen Nebulizers Recheck chest x-ray Monitor closely Empiric antibiotics Discharge Summary Discharge Physical Examination Allergies: Coded Allergies: liraglutide (Verified Allergy, Unknown, 09/06/21) Vitals & I&Os Vital Signs Date Time Temp Pulse Resp B/P (MAP) Pulse Ox O2 Delivery O2 Flow Rate FiO2 02/28/23 15:14 02/28/23 13:00 73 02/28/23 11:58 36.3 20 93 Nasal Cannula 4.00 General Appearance: Alert, Oriented X3, Cooperative Respiratory: Clear to Auscultation Cardiovascular: Regular Rate Psych/Mental Status: Mental Status NL Hospital Course Was the Problem List Reviewed?: Yes Hospital course: Patient was for acute on chronic after ingesting daily diuretics due to chronic kidney disease with worsening allergy. Patient was given IV Lasix. Exacerbation COPD prompted work-up showing acute bacterial bronchitis requiring intervention with IV steroids kidney function remains stable 2.6 creatinine patient was deemed stable for discharge back to baseline oxygen. Labs (last 24 hrs) Laboratory Tests 02/25/23 15:20: White Blood Count 18.0H, Red Blood Count 3.77L, Hemoglobin 10.7L, Hematocrit 34L , Mean Corpuscular Volume 90, Mean Corpuscular Hemoglobin 28, Mean Corpuscular Hemoglobin Concent 32, Red Cell Distribution Width 14.0, Platelet Count 306, Mean Platelet Volume 10.2, Immature Granulocyte % (Auto) 1, Neutrophils (%) (Auto) 77H, Lymphocytes (%) (Auto) 14, Monocytes (%) (Auto) 7, Eosinophils (%) (Auto) 1, Basophils (%) (Auto) 0, Neutrophils # (Auto) 13.9H, Lymphocytes # (Auto) 2.5, Monocytes # (Auto) 1.3H, Eosinophils # (Auto) 0.2, Basophils # (Auto) 0.0, Immature Granulocyte # (Auto) 0.1, Neutrophils % (Manual) 76, Lymphocytes % (Manual) 16, Monocytes % (Manual) 4, Atypical Lymphocytes 1, Reactive Lymphocytes 3, Schistocytes SLIGHT, Sodium Level 141, Potassium Level 4.8, Chloride Level 107, Carbon Dioxide Level 23, Anion Gap 11, Blood Urea Nitrogen 48H, Creatinine 2.07H, Estimat Glomerular Filtration Rate 34, BUN/Creatinine Ratio 23, Glucose Level 57*L, Calcium Level 8.8, Corrected Calcium 9.3, Total Bilirubin 0.2, Aspartate Amino Transf (AST/SGOT) 15, Alanine Aminotransferase (ALT/SGPT) 10, Alkaline Phosphatase 57, Troponin I 0.035H, C- Reactive Protein High Sensitivity 0.15, Total Protein 6.7, Albumin 3.4, SARS- CoV-2 RNA (RT-PCR) Not Detected 02/25/23 18:53: Glucometer 141H 02/26/23 05:04: White Blood Count 11.0, Red Blood Count 3.45L, Hemoglobin 9.6L, Hematocrit 31L, Mean Corpuscular Volume 90, Mean Corpuscular Hemoglobin 28, Mean Corpuscular Hemoglobin Concent 31L, Red Cell Distribution Width 14.1, Platelet Count 251, Mean Platelet Volume 10.8, Immature Granulocyte % (Auto) 1, Neutrophils (%) (Auto) 92H, Lymphocytes (%) (Auto) 5L, Monocytes (%) (Auto) 2, Eosinophils (%) (Auto) 0, Basophils (%) (Auto) 0, Neutrophils # (Auto) 10.2H, Lymphocytes # (Auto) 0.5L, Monocytes # (Auto) 0.3, Eosinophils # (Auto) 0.0, Basophils # (Auto) 0.0, Immature Granulocyte # (Auto) 0.1, Sodium Level 134L, Potassium Level 4.8, Chloride Level 102, Carbon Dioxide Level 20L, Anion Gap 12, Blood Urea Nitrogen 56H, Creatinine 2.46H, Estimat Glomerular Filtration Rate 27, BUN/Creatinine Ratio 23, Glucose Level 472*H, Calcium Level 8.2L, Corrected Calcium 9.0, Total Bilirubin 0.1, Aspartate Amino Transf (AST/SGOT) 11, Alanine Aminotransferase (ALT/SGPT) 8, Alkaline Phosphatase 55, Troponin I < 0.028, T otal Protein 6.0L, Albumin 3.0L 02/26/23 06:19: Glucometer 376H 02/26/23 16:15: Glucometer 148H 02/26/23 20:07: Glucometer 181H 02/27/23 04:55: White Blood Count 18.3H, Red Blood Count 3.57L, Hemoglobin 10.0L, Hematocrit 32L , Mean Corpuscular Volume 88, Mean Corpuscular Hemoglobin 28, Mean Corpuscular Hemoglobin Concent 32, Red Cell Distribution Width 14.0, Platelet Count 267, Mean Platelet Volume 10.6, Immature Granulocyte % (Auto) 1, Neutrophils (%) (Auto) 84H, Lymphocytes (%) (Auto) 8L, Monocytes (%) (Auto) 7, Eosinophils (%) (Auto) 1, Basophils (%) (Auto) 0, Neutrophils # (Auto) 15.4H, Lymphocytes # (Aut o) 1.4, Monocytes # (Auto) 1.2H, Eosinophils # (Auto) 0.2, Basophils # (Auto) 0.0, Immature Granulocyte # (Auto) 0.1, Sodium Level 137, Potassium Level 4.4, Chloride Level 101, Carbon Dioxide Level 27, Anion Gap 9, Blood Urea Nitrogen 64H, Creatinine 2.55H, Estimat Glomerular Filtration Rate 26, BUN/Creatinine Ratio 25, Glucose Level 130H, Calcium Level 9.0, Corrected Calcium 9.6, Total Bilirubin 0.2, Aspartate Amino Transf (AST/SGOT) 17, Alanine Aminotransferase (ALT/SGPT) 9, Alkaline Phosphatase 53, Total Protein 6.2L, Albumin 3.2 02/27/23 11:17: Glucometer 280H 02/27/23 16:03: Glucometer 181H 02/27/23 20:30: Glucometer 103 02/28/23 05:05: White Blood Count 15.3H, Red Blood Count 3.42L, Hemoglobin 9.8L, Hematocrit 30L, Mean Corpuscular Volume 88, Mean Corpuscular Hemoglobin 29, Mean Corpuscular Hemoglobin Concent 33, Red Cell Distribution Width 14.4, Platelet Count 249, Mean Platelet Volume 11.6, Immature Granulocyte % (Auto) 1, Neutrophils (%) (Auto) 82H, Lymphocytes (%) (Auto) 8L, Monocytes (%) (Auto) 9, Eosinophils (%) (Auto) 1, Basophils (%) (Auto) 0, Neutrophils # (Auto) 12.5H, Lymphocytes # (Auto) 1.2, Monocytes # (Auto) 1.4H, Eosinophils # (Auto) 0.1, Basophils # (Auto) 0.0, Immature Granulocyte # (Auto) 0.1, Sodium Level 138, Potassium Level 4.0, Chloride Level 100, Carbon Dioxide Level 27, Anion Gap 11, Blood Urea Nitrogen 66H, Creatinine 2.60H, Estimat Glomerular Filtration Rate 26, BUN/Creatinine Ratio 25, Glucose Level 75, Calcium Level 8.6, Corrected Calcium 9.4, Total Bilirubin 0.5, Aspartate Amino Transf (AST/SGOT) 12, Alanine Aminotransferase (ALT/SGPT) 7, Alkaline Phosphatase 51, Total Protein 6.1L, Albumin 3.0L 02/28/23 05:25: Glucometer 80 02/28/23 10:47: Glucometer 125H Microbiology 02/26/23 Gram Stain - Final, Resulted 02/26/23 Sputum Culture - Preliminary, Resulted Aspergillus species NOS Usual upper respiratory julito Pending Labs Microbiology Date/Time Source Procedure Growth Status 02/26/23 11:15 Sputum Expectorated Gram Stain - Final Resulted 02/26/23 11:15 Sputum Culture - Preliminary Aspergillus species NOS Usual upper respiratory julito Resulted Laboratory Tests 02/25/23 15:20: White Blood Count 18.0, Red Blood Count 3.77, Hemoglobin 10.7, Hematocrit 34, Mean Corpuscular Volume 90, Mean Corpuscular Hemoglobin 28, Mean Corpuscular Hemoglobin Concent 32, Red Cell Distribution Width 14.0, Platelet Count 306, Mean Platelet Volume 10.2, Immature Granulocyte % (Auto) 1, Neutrophils (%) (Auto) 77, Lymphocytes (%) (Auto) 14, Monocytes (%) (Auto) 7, Eosinophils (%) (Auto) 1, Basophils (%) (Auto) 0, Neutrophils # (Auto) 13.9, Lymphocytes # (Auto) 2.5, Monocytes # (Auto) 1.3, Eosinophils # (Auto) 0.2, Basophils # (Auto) 0.0, Immature Granulocyte # (Auto) 0.1, Neutrophils % (Manual) 76, Lymphocytes % (Manual) 16, Monocytes % (Manual) 4, Atypical Lymphocytes 1, Reactive Lymphocytes 3, Schistocytes SLIGHT, Sodium Level 141, Potassium Level 4.8, Chloride Level 107, Carbon Dioxide Level 23, Anion Gap 11, Blood Urea Nitrogen 48, Creatinine 2.07, Estimat Glomerular Filtration Rate 34, BUN/Creatinine Ratio 23, Glucose Level 57, Calcium Level 8.8, Corrected Calcium 9.3, Total Bilirubin 0.2, Aspartate Amino Transf (AST/SGOT) 15, Alanine Aminotransferase (ALT/SGPT) 10, Alkaline Phosphatase 57, Troponin I 0.035, C-Reactive Protein High Sensitivity 0.15, Total Protein 6.7, Albumin 3.4, SARS-CoV-2 RNA (RT-PCR) Not Detected 02/25/23 18:53: Glucometer 141 02/26/23 05:04: White Blood Count 11.0, Red Blood Count 3.45, Hemoglobin 9.6, Hematocrit 31, Mean Corpuscular Volume 90, Mean Corpuscular Hemoglobin 28, Mean Corpuscular Hemoglobin Concent 31, Red Cell Distribution Width 14.1, Platelet Count 251, Aria n Platelet Volume 10.8, Immature Granulocyte % (Auto) 1, Neutrophils (%) (Auto) 92, Lymphocytes (%) (Auto) 5, Monocytes (%) (Auto) 2, Eosinophils (%) (Auto) 0, Basophils (%) (Auto) 0, Neutrophils # (Auto) 10.2, Lymphocytes # (Auto) 0.5, Monocytes # (Auto) 0.3, Eosinophils # (Auto) 0.0, Basophils # (Auto) 0.0, Immature Granulocyte # (Auto) 0.1, Sodium Level 134, Potassium Level 4.8, Chloride Level 102, Carbon Dioxide Level 20, Anion Gap 12, Blood Urea Nitrogen 56, Creatinine 2.46, Estimat Glomerular Filtration Rate 27, BUN/Creatinine Ratio 23, Glucose Level 472, Calcium Level 8.2, Corrected Calcium 9.0, Total Bilirubin 0.1, Aspartate Amino Transf (AST/SGOT) 11, Alanine Aminotransferase (ALT/SGPT) 8, Alkaline Phosphatase 55, Troponin I < 0.028, Total Protein 6.0, Albumin 3.0 02/26/23 06:19: Glucometer 376 02/26/23 16:15: Glucometer 148 02/26/23 20:07: Glucometer 181 02/27/23 04:55: White Blood Count 18.3, Red Blood Count 3.57, Hemoglobin 10.0, Hematocrit 32, Mean Corpuscular Volume 88, Mean Corpuscular Hemoglobin 28, Mean Corpuscular Hemoglobin Concent 32, Red Cell Distribution Width 14.0, Platelet Count 267, Mean Platelet Volume 10.6, Immature Granulocyte % (Auto) 1, Neutrophils (%) (Auto) 84, Lymphocytes (%) (Auto) 8, Monocytes (%) (Auto) 7, Eosinophils (%) (Auto) 1, Basophils (%) (Auto) 0, Neutrophils # (Auto) 15.4, Lymphocytes # (Auto) 1.4, Monocytes # (Auto) 1.2, Eosinophils # (Auto) 0.2, Basophils # (Auto) 0.0, Immature Granulocyte # (Auto) 0.1, Sodium Level 137, Potassium Level 4.4, Chloride Level 101, Carbon Dioxide Level 27, Anion Gap 9, Blood Urea Nitrogen 64, Creatinine 2.55, Estimat Glomerular Filtration Rate 26, BUN/Creatinine Ratio 25, Glucose Level 130, Calcium Level 9.0, Corrected Calcium 9.6, Total Bilirubin 0.2, Aspartate Amino Transf (AST/SGOT) 17, Alanine Aminotransferase (ALT/SGPT) 9, Alkaline Phosphatase 53, Total Protein 6.2, Albumin 3.2 02/27/23 11:17: Glucometer 280 02/27/23 16:03: Glucometer 181 02/27/23 20:30: Glucometer 103 02/28/23 05:05: White Blood Count 15.3, Red Blood Count 3.42, Hemoglobin 9.8, Hematocrit 30, Mean Corpuscular Volume 88, Mean Corpuscular Hemoglobin 29, Mean Corpuscular Hemoglobin Concent 33, Red Cell Distribution Width 14.4, Platelet Count 249, Mean Platelet Volume 11.6, Immature Granulocyte % (Auto) 1, Neutrophils (%) (Auto) 82, Lymphocytes (%) (Auto) 8, Monocytes (%) (Auto) 9, Eosinophils (%) (Auto) 1, Basophils (%) (Auto) 0, Neutrophils # (Auto) 12.5, Lymphocytes # (Auto) 1.2, Monocytes # (Auto) 1.4, Eosinophils # (Auto) 0.1, Basophils # (Auto) 0.0, Immature Granulocyte # (Auto) 0.1, Sodium Level 138, Potassium Level 4.0, Chloride Level 100, Carbon Dioxide Level 27, Anion Gap 11, Blood Urea Nitrogen 66, Creatinine 2.60, Estimat Glomerular Filtration Rate 26, BUN/Creatinine Ratio 25, Glucose Level 75, Calcium Level 8.6, Corrected Calcium 9.4, Total Bilirubin 0.5, Aspartate Amino Transf (AST/SGOT) 12, Alanine Aminotransferase (ALT/SGPT) 7, Alkaline Phosphatase 51, Total Protein 6.1, Albumin 3.0 02/28/23 05:25: Glucometer 80 02/28/23 10:47: Glucometer 125 Discharge Home Medications: Active Scripts Active Cefdinir 300 Mg Capsule 300 Mg PO BID Lasix (Furosemide) 20 Mg Tablet 20 Mg PO DAILY Reported Folic Acid 0.4 Mg Tablet 0.4 Mg PO DAILY Vitamin B-12 (Cyanocobalamin (Vitamin B-12)) 1,000 Mcg Tablet 1,000 Mcg PO DAILY Breztri Aerosphere Inhaler (Budesonide/Glycopyr/Formoterol) 160 Mcg-9 Mcg-4.8 Mcg/Actuation Hfa.aer.ad 2 Puff IH BID Nesina (Alogliptin Benzoate) 6.25 Mg Tablet 6.25 Mg PO DAILY Carvedilol 25 Mg Tablet 12.5 Mg PO BID WITH MEALS TAKES (25MG) TABLET Flonase Allergy Relief (Fluticasone Propionate) 50 Mcg/Actuation Manati.susp 1-2 Manati NSEACH DAILY Nitroglycerin 0.4 Mg Tab.subl 0.4 Mg SL UD PRN Montelukast Sodium 10 Mg Tablet 10 Mg PO 1700 Ventolin Hfa (Albuterol Sulfate) 18 Gm Hfa.aer.ad 2 Puff INH Q4H PRN Flomax (Tamsulosin HCl) 0.4 Mg Cap 0.4 Mg PO 1700 Lipitor (Atorvastatin Calcium) 40 Mg Tablet 40 Mg PO 1700 Lantus Solostar (Insulin Glargine,Hum.rec.anlog) 100 Unit/Ml (3 Ml) Insuln.pen 30-35 Units SQ 1200 Lisinopril 40 Mg Tablet 20 Mg PO DAILY TAKES OF A 40MG TAB Aspirin EC (Aspirin) 81 Mg Tablet. 81 Mg PO DAILY Clopidogrel (Clopidogrel Bisulfate) 75 Mg Tablet 75 Mg PO DAILY Pantoprazole Sodium 40 Mg Tablet. 40 Mg PO DAILY Instructions to patient/family Please see electronic discharge instructions given to patient. MARY MCDUFFIE DO Feb 28, 2023 11:24
[2023-02-28 11:58] VITALS: BP 94/45
== END 2023-02-28 11:22 | disposition home or self-care (01) ==
LOC: EDUNIT# 14:38 → ER 14:40 → UNDOADMOB 17:42 → INTOOBSV 17:42 → CSD 17:42 → 4TH 02-26 14:46 → UNDODISOB 02-28 11:22
PROVIDERS: ADMIT Internal Medicine; ATTEND Internal Medicine
DX: J96.21 Acute and chronic respiratory failure with hypoxia (principal); J44.9 Chronic obstructive pulmonary disease, unspecified; I65.23 Occlusion and stenosis of bilateral carotid arteries; E78.5 Hyperlipidemia, unspecified; I25.10 Atherosclerotic heart disease of native coronary artery without angina pectoris; I13.0 Hypertensive heart and chronic kidney disease with heart failure and stage 1 through stage 4 chronic kidney disease, or unspecified chronic kidney disease; N18.4 Chronic kidney disease, stage 4 (severe); I50.32 Chronic diastolic (congestive) heart failure; E11.22 Type 2 diabetes mellitus with diabetic chronic kidney disease; R77.8 Other specified abnormalities of plasma proteins; F17.210 Nicotine dependence, cigarettes, uncomplicated; Z95.5 Presence of coronary angioplasty implant and graft; Z79.899 Other long term (current) drug therapy; Z99.81 Dependence on supplemental oxygen
CPT/HCPCS: 36415; 71045; 80053; 82947; 84484; 85007; 85025; 85027; 86141; 87070; 87106; 87205; 87636; 93005; 93306; 94640; 94760; 96366; 96372; 96376; G0378

== ENCOUNTER → 2023-03-03 | Outpatient (CLI) | payer OTHER ==
[~2023-03-03] MED LIST changes: +ALOG6.25 PO; +BUDE10.7 IH; +CYAN-41 PO; +FOLI0.4T6 PO; +FURO-125 PO; +FURO20TA4 PO
--- NOTE | 2023-03-03 19:51 | Diagnostic Imaging Report ---
INDICATION: ACUTE KIDNEY FAILURE TECHNIQUE: Multiple real-time grayscale sonographic images were obtained of the kidneys. CORRELATION: None FINDINGS: RIGHT KIDNEY: 11.8 x 5.8 x 6.1 cm. LEFT KIDNEY: 11.2 x 5.8 x 4 cm. Probable bilateral renal cysts. On the right, inferior pole 2.4 x 2.1 x 1.9 cm. On the left, inferior pole 1.7 x 1.3 x 1.4 cm. Renal parenchyma otherwise generally unremarkable. No definitive calcification or hydronephrosis. URINARY BLADDER: Bilateral ureteral jets are visualized. There is an asymmetric echogenicity suggesting of a debris within the bladder. There does appear to be asymmetric potential vascularized mass along the right aspect of the bladder. Prevoid Volume: 850 mL. Postvoid Volume: 719 mL. IMPRESSION: 1. Probable bilateral renal cysts. Kidneys otherwise generally unremarkable. No hydronephrosis. 2. Rather extensive post void bladder volume present. 3. Question of vascularized solid mass along the right aspect of the bladder. Dictated by: Dictated on workstation # [id number]
== END ==
LOC: RAD 11:49
PROVIDERS: ATTEND Internal Medicine Nephrology
DX: N17.9 Acute kidney failure, unspecified (principal)
CPT/HCPCS: 76770

== ENCOUNTER → 2023-03-10 | Day surgery (SDC) | payer OTHER ==
[~2023-03-10] VITALS: Ht 177.8 cm; Wt 88.3 kg
[~2023-03-10] MED LIST changes: +LIDOCAINE 1% INJ 10 ML VIAL INJ ONE
--- NOTE | 2023-03-10 11:04 | Diagnostic Imaging Report ---
INDICATION: Right parotid mass. Patient presents for ultrasound-guided biopsy. Patient brought to the procedure room and placed on the table in the left side down decubitus position. Ultrasound imaging of the right parotid was performed to evaluate appropriate entry site. The right neck was prepped and draped in usual sterile fashion. Small amount of 1% lidocaine was utilized for local anesthesia. 4 core biopsies were obtained of the hypoechoic solid nodule in the right lobe of the parotid utilizing the 18-gauge Temno needle. Hemostasis was obtained. Patient tolerated procedure well and left the department in stable condition. IMPRESSION: Successful ultrasound guided core biopsy of the solid nodule in the right parotid gland. Pathology results are currently pending. Dictated by: Dictated on workstation # [id number]
== END ==
LOC: RAD 08:51
PROVIDERS: ATTEND Family Medicine
DX: D11.0 Benign neoplasm of parotid gland (principal)
CPT/HCPCS: 88305

== ENCOUNTER 2023-04-03 10:35 | Observation (INO) | payer OTHER, MEDICARE ==
[~2023-04-03] VITALS: Ht 177.8 cm; Wt 89.3 kg
[~2023-04-03 10:35] MED LIST changes: -LIDOCAINE 1% INJ 10 ML VIAL INJ ONE
--- NOTE | 2023-04-03 10:57 | ED Respiratory ---
General Chief Complaint: Respiratory Problems Stated Complaint: LOW O2 | LIGHTHEADED Nursing Triage Note: PT TO RM 6 PER W/C CO OF HAVING INCREASED SOA, STARTED THIS AM. DENIES COUGH OR FEVERS TODAY. PT WEARS O2 AT 3L NORMALLY BUT HAS INCREASED TO 4L D/T SOA. PT STATES WHEN MOVED AT HOME DROPS DOWN TO 70'S Source: patient Exam Limitations: no limitations History of Present Illness Date Seen by Provider: Apr 03, 2023 Time Seen by Provider: 10:45 Initial Comments 72-year-old male presents to the emergency department today for shortness of breath. He has chronic COPD and is on 3 L of oxygen via nasal cannula through a concentrator at home. He has had increases to 5 L lately with any activity as he is getting severely short of breath. He states his home oxygen drops into the 70s with prolonged ambulation. He denies any chest pain. No changes in his chronic productive cough. No fevers or chills. Does have a history of CHF as well, denies any peripheral edema. All other systems reviewed and negative except documented per HPI. Voice recognition software was used to help create this chart Allergies and Home Medications Allergies Coded Allergies: liraglutide (Verified Allergy, Unknown, 09/06/21) Patient Home Medication List Home Medication List Reviewed: Yes Albuterol Sulfate (Ventolin Hfa) 18 Gm Hfa.aer.ad, 2 PUFF INH Q4H PRN for SHOR TNESS OF BREATH, (Reported) Entered as Reported by: GEORGINA ALVAREZ on 06/11/19 1459 Last Action: Held Alogliptin Benzoate (Nesina) 6.25 Mg Tablet, 6.25 MG PO DAILY, (Reported) Entered as Reported by: JIM MCDONALD on 02/26/23 1122 Last Action: Converted Amoxicillin/Potassium Clav (Amox Tr-K Clv 875-125 mg Tab) 875 Mg-125 Mg Tablet, 1 EACH PO BID Prescribed by: MARY MCDUFFIE on 04/06/23 1319 Aspirin (Aspirin EC) 81 Mg Tablet.dr, 81 MG PO DAILY, (Reported) Entered as Reported by: MARLY NAVARRETE on 10/06/17 1348 Last Action: Continued Atorvastatin Calcium (Lipitor) 40 Mg Tablet, 40 MG PO 1700, (Reported) Entered as Reported by: DESEAN COE on 12/23/18 0731 Last Action: Continued Budesonide/Glycopyr/Formoterol (Breztri Aerosphere Inhaler) 160 Mcg-9 Mcg-4.8 Mcg/Actuation Hfa.aer.ad, 2 PUFF IH BID, (Reported) Entered as Reported by: JIM MCDONALD on 02/26/23 112 Last Action: Converted Carvedilol (Carvedilol) 25 Mg Tablet, 12.5 MG PO BID WITH MEALS, (Reported) Entered as Reported by: RADHA MACKAY on 05/16/21 0819 Last Action: Converted Clopidogrel Bisulfate (Clopidogrel) 75 Mg Tablet, 75 MG PO DAILY, (Reported) Entered as Reported by: GEORGINA ALVAREZ on 05/16/15 1119 Last Action: Continued Cyanocobalamin (Vitamin B-12) (Vitamin B-12) 1,000 Mcg Tablet, 1,000 MCG PO DAILY, (Reported) Entered as Reported by: JIM MCDONALD on 02/26/23 112 Last Action: Continued Fluticasone Propionate (Flonase Allergy Relief) 50 Mcg/Actuation Gilbert.susp, 1-2 SPRAY NSEACH DAILY, (Reported) Entered as Reported by: JIM MCDONALD on 01/19/21 1126 Last Action: Converted Folic Acid (Folic Acid) 0.4 Mg Tablet, 0.4 MG PO DAILY, (Reported) Entered as Reported by: JIM MCDONALD on 02/26/23 112 Last Action: Converted Furosemide (Lasix) 20 Mg Tablet, 20 MG PO DAILY Prescribed by: MARY MCDUFFIE on 02/28/23 1123 Last Action: Continued Glipizide (Glipizide) 5 Mg Tablet, 5 MG PO BID WITH MEALS, (Reported) Entered as Reported by: JIM MCDONALD on 04/03/23 1607 Last Action: Continued Insulin Glargine,Hum.rec.anlog (Lantus Solostar) 100 Unit/Ml (3 Ml) Insuln.pen, 20-25 UNITS SQ 1200, (Reported) Entered as Reported by: MARLY NAVARRETE on 10/06/17 1538 Last Action: Converted Lisinopril (Lisinopril) 40 Mg Tablet, 20 MG PO DAILY, (Reported) Entered as Reported by: MARLY NAVARRETE on 10/06/17 1535 Last Action: Continued Montelukast Sodium (Montelukast Sodium) 10 Mg Tablet, 10 MG PO 1700, (Reported) Entered as Reported by: JIM MCDONALD on 01/19/21 1126 Last Action: Continued Nitroglycerin (Nitroglycerin) 0.4 Mg Tab.subl, 0.4 MG SL UD PRN for CHEST PAIN, (Reported) Entered as Reported by: JIM MCDONALD on 01/19/21 1126 Last Action: Continued Pantoprazole Sodium (Pantoprazole Sodium) 40 Mg Tablet.dr, 40 MG PO DAILY, (Reported) Entered as Reported by: GEORGINA ALVAREZ on 05/16/15 1118 Last Action: Continued Prednisone (Prednisone) 10 Mg Tab.ds.pk, 40 MG PO DAILY Prescribed by: MARY MCDUFFIE on 04/06/23 1319 Tamsulosin HCl (Flomax) 0.4 Mg Cap, 0.4 MG PO 1700, (Reported) Entered as Reported by: DESEAN COE on 12/23/18 0731 Last Action: Continued Discontinued Medications Cefdinir (Cefdinir) 300 Mg Capsule, 300 MG PO BID Discontinued Reason: No Longer Taking Prescribed by: MARY MCDUFFIE on 02/28/23 1123 Last Action: Discontinued Review of Systems Review of Systems Constitutional: see HPI Past Voydfbv-Ydrqul-Xywlvv Hx Patient Social History Tobacco Use?: No Smoking Status: Former Smoker Substance use?: No Alcohol Use?: No Pt feels they are or have been: No Immunizations Up To Date Tetanus Booster (TDap): Unknown PED Vaccines UTD: Yes First/Initial COVID19 Vaccinat: NOVEMBER 2020, SHRUTHI AND SHRUTHI Second COVID19 Vaccination Nomi: NOVEMBER 2020, SHRUTHI AND SHRUTHI Third COVID19 Vaccination Date: NOVEMBER 2020, DONALD Seasonal Allergies Seasonal Allergies: No Past Medical History Surgery/Hospitalization HX: COPD, DM2, CKD STAGE 4, CHF Surgeries: Yes (CHEST TUBE INSERTION, heart cathx9 stents) Cardiac, Coronary Stent Respiratory: Yes (Uses oxygen at 4 L/min nasal cannula at home) COPD Currently Using CPAP: No Currently Using BIPAP: No Cardiac: Yes Chronic Edema/Swelling, Coronary Artery Disease, Heart Attack, High Cholesterol, Hypertension Neurological: No Neuropathy Reproductive Disorders: No Genitourinary: Yes Gastrointestinal: Yes Hepatitis, Polyps Musculoskeletal: Yes Arthritis, Chronic Back Pain Endocrine: Yes Diabetes, Non-Insulin dep HEENT: No (hemmoraging in back of both eyes-pt see specialist for it) Cataract Cancer: No Psychosocial: No Integumentary: No Blood Disorders: No Family Medical History Patient reports no known family medical history. No Pertinent Family Hx Physical Exam Vital Signs - First Documented 04/03/23 10:46 Temp 36.9 Pulse 72 Resp 28 B/P (MAP) 166/74 (104) Pulse Ox 85 O2 Delivery Nasal Cannula O2 Flow Rate 3.00 Capillary Refill : Less Than 3 Seconds Height: 5'11.00" Weight: 225lbs. 0.0oz. 102.442290yn; 26.00 BMI Method:Stated General Appearance: WD/WN, no apparent distress HEENT: normal ENT inspection, pharynx normal Neck: non-tender, supple, normal inspection Respiratory: chest non-tender, other (Get increased work of breathing after ambulating to the room on 3 L of oxygen. Oxygen saturation initially was 82 to 85% on 3 L. He has decreased breath sounds on the right side especially in the base. Scant wheezing in his left lung.) Cardiovascular: regular rate, rhythm, no murmur Gastrointestinal: normal bowel sounds, non tender, soft Extremities: normal range of motion, non-tender, normal inspection, no pedal edema, no calf tenderness, normal capillary refill Neurologic/Psychiatric: alert, normal mood/affect, oriented x 3 Skin: normal color, warm/dry Focused Exam Lactate Level 04/03/23 10:57: Lactic Acid Level 0.63 Lactic Acid Level Laboratory Tests Test 04/03/23 10:57 Lactic Acid Level 0.63 MMOL/L (0.50-2.00) Progress/Results/Core Measures Suspected Sepsis SIRS Temperature: Pulse: 72 Respiratory Rate: 28 Laboratory Tests 04/03/23 10:57: White Blood Count 15.6H Blood Pressure 166 /74 Mean: 104 04/03/23 10:57: Lactic Acid Level 0.63 Laboratory Tests 04/03/23 10:57: Creatinine 1.80H, Platelet Count 287, Total Bilirubin 0.4 Results/Orders Lab Results Laboratory Tests Test 04/03/23 10:57 04/03/23 11:05 Range/Units White Blood Count 15.6 H 4.3-11.0 10^3/uL Red Blood Count 3.31 L 4.30-5.52 10^6/uL Hemoglobin 9.1 L 13.3-17.7 g/dL Hematocrit 30 L 40-54 % Mean Corpuscular Volume 91 80-99 fL Mean Corpuscular Hemoglobin 28 25-34 pg Mean Corpuscular Hemoglobin Concent 30 L 32-36 g/dL Red Cell Distribution Width 15.2 H 10.0-14.5 % Platelet Count 287 130-400 10^3/uL Mean Platelet Volume 10.4 9.0-12.2 fL Immature Granulocyte % (Auto) 0 % Neutrophils (%) (Auto) 85 H 42-75 % Lymphocytes (%) (Auto) 6 L 12-44 % Monocytes (%) (Auto) 8 0-12 % Eosinophils (%) (Auto) 2 0-10 % Basophils (%) (Auto) 0 0-10 % Neutrophils # (Auto) 13.2 H 1.8-7.8 10^3/uL Lymphocytes # (Auto) 0.9 L 1.0-4.0 10^3/uL Monocytes # (Auto) 1.2 H 0.0-1.0 10^3/uL Eosinophils # (Auto) 0.3 0.0-0.3 10^3/uL Basophils # (Auto) 0.1 0.0-0.1 10^3/uL Immature Granulocyte # (Auto) 0.1 0.0-0.1 10^3/uL Neutrophils % (Manual) 87 % Lymphocytes % (Manual) 3 % Monocytes % (Manual) 6 % Eosinophils % (Manual) 3 % Basophils % (Manual) 1 % Anisocytosis SLIGHT Blood Morphology Comment Sodium Level 141 135-145 MMOL/L Potassium Level 4.4 3.6-5.0 MMOL/L Chloride Level 107 98-107 MMOL/L Carbon Dioxide Level 27 21-32 MMOL/L Anion Gap 7 5-14 MMOL/L Blood Urea Nitrogen 36 H 7-18 MG/DL Creatinine 1.80 H 0.60-1.30 MG/DL Estimat Glomerular Filtration Rate 40 BUN/Creatinine Ratio 20 Glucose Level 91 70-105 MG/DL Lactic Acid Level 0.63 0.50-2.00 MMOL/L Calcium Level 9.0 8.5-10.1 MG/DL Corrected Calcium 9.5 8.5-10.1 MG/DL Total Bilirubin 0.4 0.1-1.0 MG/DL Aspartate Amino Transf (AST/SGOT) 15 5-34 U/L Alanine Aminotransferase (ALT/SGPT) 10 0-55 U/L Alkaline Phosphatase 73 40-136 U/L Troponin I 0.050 H <0.028 NG/ML Total Protein 7.5 6.4-8.2 GM/DL Albumin 3.4 3.2-4.5 GM/DL SARS-CoV-2 RNA (RT-PCR) Not Detected Not Detecte Micro Results Microbiology 04/03/23 Blood Culture - Preliminary, Resulted No growth 04/03/23 Blood Culture - Preliminary, Resulted No growth My Orders Orders - INDY MONTANEZ DO Cbc With Automated Diff (04/03/23 10:53) Comprehensive Metabolic Panel (04/03/23 10:53) Blood Culture (04/03/23 10:53) Chest 1 View, Ap/Pa Only (04/03/23 10:53) Ed Iv/Invasive Line Start (04/03/23 10:53) Ekg Tracing (04/03/23 10:53) Vital Signs Adult Sepsis Patie Q15M (04/03/23 10:53) O2 (04/03/23 10:53) Lactic Acid Analyzer (04/03/23 10:53) Troponin I Jason (04/03/23 10:53) Covid 19 Inhouse Test (04/03/23 10:53) Albuterol/Ipra Inhalation Soln (Duoneb I (04/03/23 11:00) Svn Small Volume Nebulizer (04/03/23 10:53) Methylprednisolone Sod Succ (Solu-Medrol (04/03/23 11:00) Manual Differential (04/03/23 10:57) Azithromycin Injection (Zithromax Inject (04/03/23 12:30) Ceftriaxone Iv/Im (Rocephin Iv/Im) (04/03/23 12:30) Ed Admission (Communication) (04/03/23 12:25) Vital Signs/I&O 04/03/23 04/03/23 04/03/23 10:46 10:46 11:19 Temp 36.9 Pulse 72 Resp 28 B/P (MAP) 166/74 (104) Pulse Ox 85 O2 Delivery Nasal Cannula Nasal Cannula OxyMask O2 Flow Rate 3.00 4.00 3.00 Capillary Refill : Less Than 3 Seconds Blood Pressure Mean: 104 ECG Comment Sinus rhythm with a rate of 66 bpm. Normal intervals. Normal axis. No ST or T wave abnormalities. No ectopy. Critical Care Note Critical Care Total Time (minutes) 60 Departure Communication (Admissions) Patient is hypoxic but easily correctable with oxygen. Chest x-ray shows pne umonia. He is given broad-spectrum antibiotics. Blood cultures were drawn prior to administration of antibiotics. He is not hypotensive, lactate less than 4, no indication for 30 cc/kg bolus of IV fluids. He will be admitted to the hospital for community-acquired pneumonia. I have independently reviewed chest x-ray, all lab values. Impression Primary Impression: CAP (community acquired pneumonia) Qualified Codes: J18.9 - Pneumonia, unspecified organism Additional Impressions: Shortness of breath Hypoxia Disposition: ADMITTED INPATIENT Condition: Stable Admissions Decision to Admit Reason: Admit from ER (General) Departure-Patient Inst. Referrals: MIKEY ZAZUETA APRN (PCP/Family) Primary Care Physician Scripts Amoxicillin/Potassium Clav (Amox Tr-K Clv 875-125 mg Tab) 875 Mg-125 Mg Tablet 1 EACH PO BID, #10 TAB Prov: MARY MCDUFFIE DO 04/06/23 Prednisone (Prednisone) 10 Mg Tab.ds.pk 40 MG PO DAILY, #20 EA 4 pills once daily for 2 days then 3 pills once daily for 2 days then 2 pills once daily for 2 days then 1 daily for 2 days Prov: MARY MCDUFFIE DO 04/06/23 INDY MONTANEZ DO Apr 03, 2023 10:57
[2023-04-03] MEDS ORDERED: RT-ALBUTEROL/IPRATROPIUM 3 ML (DUONEB) VIAL INH ONE (11:00)
[2023-04-03] MEDS ORDERED: methylPREDNISolone 125 MG (Solu-MEDROL) VIAL IVP ONE (11:00)
[2023-04-03 11:08] LABS: BASOPHILS # (AUTO) 0.1 10^3/uL (0.0-0.1); BASOPHILS % (AUTO) 0 % (0-10); EOSINOPHILS # (AUTO) 0.3 10^3/uL (0.0-0.3); EOSINOPHILS % (AUTO) 2 % (0-10); HEMATOCRIT 30 % (40-54); HEMOGLOBIN 9.1 g/dL (13.3-17.7); LYMPHOCYTES # (AUTO) 0.9 10^3/uL (1.0-4.0); LYMPHOCYTES % (AUTO) 6 % (12-44); MEAN CORPUSCULAR HEMOGLOBIN 28 pg (25-34); MEAN CORPUSCULAR HGB CONC 30 g/dL (32-36); MEAN CORPUSCULAR VOLUME 91 fL (80-99); MEAN PLATELET VOLUME 10.4 fL (9.0-12.2); MONOCYTES # (AUTO) 1.2 10^3/uL (0.0-1.0); MONOCYTES % (AUTO) 8 % (0-12); NEUTROPHILS # (AUTO) 13.2 10^3/uL (1.8-7.8); NEUTROPHILS % (AUTO) 85 % (42-75); PLATELET COUNT 287 10^3/uL (130-400); WHITE BLOOD COUNT 15.6 10^3/uL (4.3-11.0)
[2023-04-03 11:15] LABS: ALBUMIN 3.4 GM/DL (3.2-4.5)
[2023-04-03 11:16] LABS: POTASSIUM 4.4 MMOL/L (3.6-5.0)
[2023-04-03 11:18] LABS: TOTAL PROTEIN 7.5 GM/DL (6.4-8.2)
[2023-04-03 11:20] LABS: BILIRUBIN,TOTAL 0.4 MG/DL (0.1-1.0)
[2023-04-03 11:22] LABS: CREATININE SERUM 1.8 MG/DL (0.60-1.30)
[2023-04-03 11:23] LABS: BASOPHILS % (MANUAL) 1 %; EOSINOPHILS % (MANUAL) 3 %; LYMPHOCYTES % (MANUAL) 3 %; MONOCYTES % (MANUAL) 6 %; NEUTROPHILS % (MANUAL) 87 %
[2023-04-03 11:24] LABS: ANISOCYTOSIS SLIGHT
--- NOTE | 2023-04-03 12:07 | Diagnostic Imaging Report ---
EXAMINATION: Chest 1 view HISTORY: Hypoxia. Dyspnea. COMPARISON: 02/27/2023. FINDINGS: Persistent hazy and patchy opacities are seen in the mid and lower right lung and left lung base, with interval increase in the left lung base. Persistent volume loss is seen in the right lung. Stable cardiac silhouette. No large pleural effusion or pneumothorax. IMPRESSION: 1. Increased hazy and patchy opacities in the left lung base with stable opacities in the right lung. Findings may represent infection and/or atelectasis. Chronic scarring may be present in the right lung given the stable volume loss. Dictated by: Dictated on workstation # [id number]
[2023-04-03] MEDS ORDERED: AZITHROMYCIN INJECTION 500 MG in NS (IVPB) 250 ML IV ONE (12:30)
[2023-04-03] MEDS ORDERED: cefTRIAXone IV/IM 1,000 MG in NS (IVPB) 50 ML IV ONE (12:30)
[2023-04-03 13:50] VITALS: BP 170/75
[2023-04-03 14:17] VITALS: BP 155/62
[2023-04-03] MEDS ORDERED: CATHETER FLUSH 10 ML SYR IV PRN (14:30)
[2023-04-03] MEDS: RT-ALBUTEROL/IPRATROPIUM 3 ML (DUONEB) VIAL INH SCH ×2 (15:45→21:36)
[2023-04-03 15:52] VITALS: BP 178/73
[2023-04-03] MEDS ORDERED: GLIP5TAB13 PO (16:07)
[2023-04-03 19:45] VITALS: BP 150/4
[2023-04-03] MEDS ORDERED: PANTOPRAZOLE 40 MG (PROTONIX) TAB PO ONE (21:30)
[2023-04-03] MEDS ORDERED: lisINopril 20 MG (PRINIVIL) TABLET PO ONE ×2 (21:30)
[2023-04-03] MEDS: CATHETER FLUSH 10 ML SYR IV SCH (21:45)
[2023-04-03 23:20] VITALS: BP 182/80
[2023-04-04 04:00] VITALS: BP 160/70
[2023-04-04] MEDS: CATHETER FLUSH 10 ML SYR IV SCH ×3 (05:05→20:58)
[2023-04-04] MEDS: inSUlin ASPART (NovoLOG) 1 UNIT/0.01 ML (CHARGE PER UNIT) SC SCH ×4 (05:22→20:58)
[2023-04-04] MEDS: RT-ALBUTEROL/IPRATROPIUM 3 ML (DUONEB) VIAL INH PRN (05:27)
[2023-04-04] MEDS ORDERED: PANTOPRAZOLE 40 MG (PROTONIX) TAB PO SCH (07:00)
[2023-04-04 07:16] VITALS: BP 188/81
[2023-04-04] MEDS: RT-ALBUTEROL/IPRATROPIUM 3 ML (DUONEB) VIAL INH SCH ×3 (07:23→21:12)
[2023-04-04] MEDS: lisINopril 20 MG (PRINIVIL) TABLET PO SCH (08:27)
--- NOTE | 2023-04-04 08:57 | History & Physical-Hospitalist ---
History of Present Illness HPI/Chief Complaint CC: Acute on chronic respiratory failure HPI: This is a 72yoWM of [facility] who presented to the ER with increased dyspnea and found to have PNA. Patient has frequent hospitalizations due to severe O2 dependent COPD. Currently he is feeling better and has no major concerns. Source: patient, RN/MD Exam Limitations: no limitations Date Seen 04/04/23 Time Seen by a Provider: 11:00 Attending Physician Jasmin Bland Aprn PCP Admitting Physician: Aleida Bacon MD Attending Physician: Aleida Bacon MD Referring Physician Date of Admission Apr 03, 2023 at 13:09 Home Medications & Allergies Home Medications Reviewed patient Home Medication Reconciliation performed by pharmacy medication reconciliations missile technician and/or nursing. Patients Allergies have been reviewed. Allergies Allergies Coded Allergies liraglutide (Verified Allergy, Unknown, 09/06/21) Past Onlufkn-Pjawlq-Riogww Hx Patient Social History Marrital Status: single Employed/Student: unemployed Tobacco Use?: Yes Tobacco type used: Cigarettes Smoking Status: Former Smoker Smokeless Tobacco Frequency: Former User Use of E-Cig and/or Vaping dev: No Substance use?: No Alcohol Use?: No Pt feels they are or have been: No Immunizations Up To Date Date of Influenza Vaccine: Jul 08, 2021 First/Initial COVID19 Vaccinat: NOVEMBER 2020, SHRUTHI AND SHRUTHI Second COVID19 Vaccination Nomi: NOVEMBER 2020, SHRUTHI AND SHRUTHI Tetanus Booster (TDap): Unknown Hepatitis A: No Hepatitis B: No PED Vaccines UTD: Yes Date of Pneumonia Vaccine: Jul 25, 2017 Seasonal Allergies Seasonal Allergies: No Current Status Advance Directives: No Communicates: Verbally Primary Language: Dutch Preferred Spoken Language: Dutch Is interpretation needed?: No Sensory deficits: Vision impairment, Hearing impairment Additional sensory deficits: [place] Implanted or Applied Medical D: Stents Past Medical History Surgeries: Cardiac, Coronary Stent COPD Currently Using CPAP: No Currently Using BIPAP: No Chronic Edema/Swelling, Coronary Artery Disease, Heart Attack, High Cholesterol, Hypertension Neuropathy Hepatitis, Polyps Arthritis, Chronic Back Pain Diabetes, Non-Insulin dep Cataract Blood Disorders: No Family Medical History Patient reports no known family medical history. No Pertinent Family Hx Review of Systems Constitutional: see HPI Respiratory: dyspnea on exertion Physical Exam Physical Exam Vital Signs Vital Signs - First Documented 04/03/23 10:46 Temp 36.9 Pulse 72 Resp 28 B/P (MAP) 166/74 (104) Pulse Ox 85 O2 Delivery Nasal Cannula O2 Flow Rate 3.00 Capillary Refill : Less Than 3 Seconds Height, Weight, BMI Height: 5'11.00" Weight: 225lbs. 0.0oz. 102.687491ka; 28.24 BMI Method:Stated General Appearance: No Apparent Distress, Chronically ill Eyes: Right Eye Normal Inspection, Right Eye PERRL HEENT: PERRL/EOMI, Normal ENT Inspection, Pharynx Normal, Moist Mucous Membranes Neck: Full Range of Motion, Normal Inspection, Non Tender Respiratory: Chest Non Tender, No Accessory Muscle Use, No Respiratory Distress, Crackles, Decreased Breath Sounds, Wheezing Cardiovascular: Regular Rate, Rhythm, No Edema, No Gallop, No JVD, No Murmur, Normal Peripheral Pulses Gastrointestinal: Normal Bowel Sounds, No Organomegaly, No Pulsatile Mass, Non Tender, Soft Back: Normal Inspection, No CVA Tenderness, No Vertebral Tenderness Extremity: Normal Capillary Refill, Normal Inspection, Normal Range of Motion, Non Tender, No Calf Tenderness, No Pedal Edema Neurologic/Psychiatric: Alert, Oriented x3, No Motor/Sensory Deficits, Normal Mood/Affect Skin: Normal Color, Warm/Dry Lymphatic: No Adenopathy Results Results/Procedures Labs Laboratory Tests 04/03/23 10:57 04/04/23 09:10 Patient resulted labs reviewed. Assessment/Plan Admission Diagnosis Assessment: Acute hypoxic respiratory failure PNA Chronic respiratory failure maintained on oxygen at home Chronic kidney disease stage IV managed by nephrology Hypertension COPD Former smoker Plan: Oxygen Nebulizers Monitor closely Empiric antibiotics Admission Status: Observation MARY MCDUFFIE DO Apr 04, 2023 08:57
[2023-04-04] MEDS ORDERED: lisINopril 40 MG (PRINIVIL) TABLET PO SCH (09:00)
[2023-04-04 09:25] LABS: BASOPHILS % (AUTO) 0 % (0-10); EOSINOPHILS % (AUTO) 0 % (0-10); HEMATOCRIT 28 % (40-54); HEMOGLOBIN 8.7 g/dL (13.3-17.7); LYMPHOCYTES # (AUTO) 0.8 10^3/uL (1.0-4.0); LYMPHOCYTES % (AUTO) 5 % (12-44); MEAN CORPUSCULAR HEMOGLOBIN 27 pg (25-34); MEAN CORPUSCULAR HGB CONC 31 g/dL (32-36); MEAN CORPUSCULAR VOLUME 87 fL (80-99); MEAN PLATELET VOLUME 10.9 fL (9.0-12.2); MONOCYTES % (AUTO) 6 % (0-12); NEUTROPHILS # (AUTO) 14.3 10^3/uL (1.8-7.8); NEUTROPHILS % (AUTO) 88 % (42-75); PLATELET COUNT 264 10^3/uL (130-400); WHITE BLOOD COUNT 16.2 10^3/uL (4.3-11.0)
[2023-04-04 09:35] LABS: ALBUMIN 3.3 GM/DL (3.2-4.5); POTASSIUM 4.2 MMOL/L (3.6-5.0)
[2023-04-04 09:37] LABS: CALCIUM 8.5 MG/DL (8.5-10.1)
[2023-04-04 09:38] LABS: TOTAL PROTEIN 7.1 GM/DL (6.4-8.2)
[2023-04-04 09:40] LABS: BILIRUBIN,TOTAL 0.2 MG/DL (0.1-1.0)
[2023-04-04 09:41] LABS: CREATININE SERUM 1.99 MG/DL (0.60-1.30)
[2023-04-04] MEDS ORDERED: NITROGLYCERIN 0.4 MG SL TABS BTL 25'S SL PRN (11:00)
[2023-04-04 11:28] VITALS: BP 181/75
[2023-04-04] MEDS: CEFEPIME INJECTION 1,000 MG in NS (IVPB) 50 ML IV SCH ×2 (11:34→18:35)
[2023-04-04] MEDS: DOXYCYCLINE INJECTION 100 MG in NS (IVPB) 100 ML IV SCH ×2 (11:34→20:59)
[2023-04-04] MEDS ORDERED: NON-FORMULARY MEDICATION 1 EA EA (Insulin Glargine,Hum.rec.anlog (Lantus Solostar) 20 UNIT SQ SCH (12:00)
[2023-04-04 16:25] VITALS: BP 165/70
[2023-04-04] MEDS: MONTELUKAST 10 MG (SINGULAIR) TAB PO SCH (17:15)
[2023-04-04] MEDS: glipiZIDE 5 MG (GLUCOTROL) TAB PO SCH (17:15)
[2023-04-04] MEDS: TAMSULOSIN 0.4 MG (FLOMAX) CAP PO SCH (17:15)
[2023-04-04] MEDS ORDERED: NON-FORMULARY MEDICATION 1 EA EA (Carvedilol 12.5 MG) PO SCH (18:00)
[2023-04-04 19:23] VITALS: BP 176/77
[2023-04-04] MEDS ORDERED: NON-FORMULARY MEDICATION 1 EA EA (Budesonide/Glycopyr/Formoterol (Breztri Aerosphere Inhal IH SCH (21:00)
[2023-04-04 23:40] VITALS: BP 133/86
[2023-04-05] MEDS: CEFEPIME INJECTION 1,000 MG in NS (IVPB) 50 ML IV SCH ×3 (02:47→17:29)
[2023-04-05] MEDS: CATHETER FLUSH 10 ML SYR IV SCH ×3 (05:36→22:31)
[2023-04-05] MEDS: inSUlin ASPART (NovoLOG) 1 UNIT/0.01 ML (CHARGE PER UNIT) SC SCH ×4 (05:39→21:46)
[2023-04-05] MEDS: RT-ALBUTEROL/IPRATROPIUM 3 ML (DUONEB) VIAL INH PRN (05:48)
[2023-04-05 07:16] VITALS: BP 180/67
[2023-04-05] MEDS: ASPIRIN E.C. 81 MG (ECOTRIN) TAB PO SCH (08:39)
[2023-04-05] MEDS: CYANOCOBALAMIN 1,000 MCG (VITAMIN B-12) TABLET PO SCH (08:39)
[2023-04-05] MEDS: PANTOPRAZOLE 40 MG (PROTONIX) TAB PO SCH (08:39)
[2023-04-05] MEDS: FOLIC ACID 1 MG TAB PO SCH (08:40)
[2023-04-05] MEDS: lisINopril 20 MG (PRINIVIL) TABLET PO SCH (08:40)
[2023-04-05] MEDS: CLOPIDOGREL 75 MG (PLAVIX) TABLET PO SCH (08:40)
[2023-04-05] MEDS: glipiZIDE 5 MG (GLUCOTROL) TAB PO SCH ×2 (08:40→16:27)
[2023-04-05] MEDS: FUROSEMIDE 20 MG (LASIX) TAB PO SCH (08:40)
[2023-04-05] MEDS: FLUTICASONE NASAL SPRAY (FLONASE) 16 GM BTL NS SCH (08:41)
[2023-04-05] MEDS: DOXYCYCLINE INJECTION 100 MG in NS (IVPB) 100 ML IV SCH ×2 (08:42→20:31)
[2023-04-05] MEDS ORDERED: ALOGLIPTIN BENZOATE 6.25 MG PO SCH (09:00)
[2023-04-05] MEDS ORDERED: lisINopril 40 MG (PRINIVIL) TABLET PO SCH (09:00)
[2023-04-05] MEDS: RT-ALBUTEROL/IPRATROPIUM 3 ML (DUONEB) VIAL INH SCH ×3 (09:36→21:51)
[2023-04-05] MEDS: TIOTROPIUM INH 4 GM (SPIRIVA Respimat) IH SCH (09:37)
[2023-04-05] MEDS: FLUTICASONE/VILANTEROL 100 MCG 14'S (BREO) IH SCH (09:37)
--- NOTE | 2023-04-05 13:14 | Progress Note - Hospitalist ---
Subjective HPI/CC On Admission Date Seen by Provider: Apr 05, 2023 Time Seen by Provider: 12:30 CC: Acute on chronic respiratory failure HPI: This is a 72yoWM of [facility] who presented to the ER with increased dyspnea and found to have PNA. Patient has frequent hospitalizations due to severe O2 dependent COPD. Currently he is feeling better and has no major concerns. Subjective/Events-last exam Patient doing a little better Short of breath earlier this morning Maintain on oxygen IV antibiotics maintained Review of Systems General: Fatigue, Malaise Focused Exam Lactate Level 04/03/23 10:57: Lactic Acid Level 0.63 Objective Exam Vital Signs Vital Signs Date Time Temp Pulse Resp B/P (MAP) Pulse Ox O2 Delivery O2 Flow Rate FiO2 04/05/23 20:00 Room Air 4.00 04/05/23 16:22 36.4 71 18 164/65 (98) 94 Capillary Refill : Less Than 3 Seconds General Appearance: No Apparent Distress, WD/WN, Chronically ill Respiratory: No Accessory Muscle Use, No Respiratory Distress, Crackles Cardiovascular: Regular Rate, Rhythm Neurologic/Psychiatric: Alert, Oriented x3 Results/Procedures Lab Patient resulted labs reviewed. Assessment/Plan Assessment and Plan Assess & Plan/Chief Complaint Assessment: Acute hypoxic respiratory failure PNA Chronic respiratory failure maintained on oxygen at home Chronic kidney disease stage IV managed by nephrology Hypertension COPD Former smoker Plan: Oxygen Nebulizers Monitor closely Empiric antibiotics MARY MCDUFFIE DO Apr 05, 2023 13:14
[2023-04-05 16:22] VITALS: BP 164/65
[2023-04-05] MEDS: MONTELUKAST 10 MG (SINGULAIR) TAB PO SCH (16:27)
[2023-04-05] MEDS: TAMSULOSIN 0.4 MG (FLOMAX) CAP PO SCH (16:27)
[2023-04-05] MEDS ORDERED: ENOXAPARIN 40 MG/0.4 ML (LOVENOX) SYR SC SCH (21:00)
[2023-04-05 23:30] VITALS: BP 154/71
[2023-04-06] MEDS: RT-ALBUTEROL/IPRATROPIUM 3 ML (DUONEB) VIAL INH SCH (02:46)
[2023-04-06] MEDS: CEFEPIME INJECTION 1,000 MG in NS (IVPB) 50 ML IV SCH ×2 (03:10→12:11)
[2023-04-06] MEDS: inSUlin ASPART (NovoLOG) 1 UNIT/0.01 ML (CHARGE PER UNIT) SC SCH ×2 (05:58→12:12)
[2023-04-06] MEDS: CATHETER FLUSH 10 ML SYR IV SCH (05:58)
--- NOTE | 2023-04-06 07:04 | Progress Note - Hospitalist ---
Subjective HPI/CC On Admission Date Seen by Provider: Apr 06, 2023 Time Seen by Provider: 11:00 CC: Acute on chronic respiratory failure HPI: This is a 72yoWM of [facility] who presented to the ER with increased dyspnea and found to have PNA. Patient has frequent hospitalizations due to severe O2 dependent COPD. Currently he is feeling better and has no major concerns. Focused Exam Lactate Level Objective Exam Vital Signs Vital Signs Date Time Temp Pulse Resp B/P (MAP) Pulse Ox O2 Delivery O2 Flow Rate FiO2 04/06/23 09:00 97 Nasal Cannula 3.00 04/06/23 07:27 36.2 74 20 186/78 (114) Capillary Refill : Less Than 3 Seconds Results/Procedures Lab Laboratory Tests 04/06/23 07:36 Patient resulted labs reviewed. Assessment/Plan Assessment and Plan Assess & Plan/Chief Complaint Assessment: Acute hypoxic respiratory failure PNA Chronic respiratory failure maintained on oxygen at home Chronic kidney disease stage IV managed by nephrology Hypertension COPD Former smoker Plan: Oxygen Nebulizers Monitor closely Empiric antibiotics MARY MCDUFFIE DO Apr 06, 2023 07:04
[2023-04-06 07:27] VITALS: BP 186/78
[2023-04-06 07:43] LABS: BASOPHILS % (AUTO) 0 % (0-10); EOSINOPHILS % (AUTO) 0 % (0-10); HEMATOCRIT 29 % (40-54); LYMPHOCYTES # (AUTO) 0.8 10^3/uL (1.0-4.0); LYMPHOCYTES % (AUTO) 4 % (12-44); MEAN CORPUSCULAR HEMOGLOBIN 27 pg (25-34); MEAN CORPUSCULAR HGB CONC 31 g/dL (32-36); MEAN CORPUSCULAR VOLUME 88 fL (80-99); MEAN PLATELET VOLUME 10.6 fL (9.0-12.2); MONOCYTES # (AUTO) 0.8 10^3/uL (0.0-1.0); MONOCYTES % (AUTO) 4 % (0-12); NEUTROPHILS # (AUTO) 16.8 10^3/uL (1.8-7.8); NEUTROPHILS % (AUTO) 91 % (42-75); PLATELET COUNT 291 10^3/uL (130-400); WHITE BLOOD COUNT 18.5 10^3/uL (4.3-11.0)
[2023-04-06 07:54] LABS: ALBUMIN 3.3 GM/DL (3.2-4.5); POTASSIUM 4.6 MMOL/L (3.6-5.0)
[2023-04-06 07:56] LABS: CALCIUM 8.5 MG/DL (8.5-10.1)
[2023-04-06 07:57] LABS: TOTAL PROTEIN 7.1 GM/DL (6.4-8.2)
[2023-04-06 07:58] LABS: BILIRUBIN,TOTAL 0.2 MG/DL (0.1-1.0)
[2023-04-06 08:00] LABS: CREATININE SERUM 2.31 MG/DL (0.60-1.30)
[2023-04-06] MEDS ORDERED: RT-ALBUTEROL/IPRATROPIUM 3 ML (DUONEB) VIAL INH SCH (08:00)
[2023-04-06 08:37] LABS: BAND NEUTROPHILS 2 %; LYMPHOCYTES % (MANUAL) 5 %; MONOCYTES % (MANUAL) 2 %; NEUTROPHILS % (MANUAL) 91 %
[2023-04-06 08:38] LABS: ANISOCYTOSIS SLIGHT
[2023-04-06] MEDS: ASPIRIN E.C. 81 MG (ECOTRIN) TAB PO SCH (08:57)
[2023-04-06] MEDS: CYANOCOBALAMIN 1,000 MCG (VITAMIN B-12) TABLET PO SCH (08:57)
[2023-04-06] MEDS: CLOPIDOGREL 75 MG (PLAVIX) TABLET PO SCH (08:57)
[2023-04-06] MEDS: glipiZIDE 5 MG (GLUCOTROL) TAB PO SCH (08:57)
[2023-04-06] MEDS: FUROSEMIDE 20 MG (LASIX) TAB PO SCH (08:57)
[2023-04-06] MEDS: PANTOPRAZOLE 40 MG (PROTONIX) TAB PO SCH (08:57)
[2023-04-06] MEDS: lisINopril 20 MG (PRINIVIL) TABLET PO SCH (08:57)
[2023-04-06] MEDS: FLUTICASONE/VILANTEROL 100 MCG 14'S (BREO) IH SCH (08:57)
[2023-04-06] MEDS: FOLIC ACID 1 MG TAB PO SCH (08:58)
[2023-04-06] MEDS: TIOTROPIUM INH 4 GM (SPIRIVA Respimat) IH SCH (08:58)
[2023-04-06] MEDS: DOXYCYCLINE INJECTION 100 MG in NS (IVPB) 100 ML IV SCH (09:01)
[2023-04-06] MEDS: FLUTICASONE NASAL SPRAY (FLONASE) 16 GM BTL NS SCH (09:01)
[2023-04-06] MEDS ORDERED: PRED10TA22 PO (13:19)
[2023-04-06] MEDS ORDERED: AMOX1TAB12 PO (13:19)
--- NOTE | 2023-04-06 13:20 | Discharge Summary ---
Discharge Summary Hospital Course Was the Problem List Reviewed?: Yes Problems/Dx: (1) CAP (community acquired pneumonia) Qualifiers: Qualified Codes: J18.9 - Pneumonia, unspecified organism (2) Hypoxia (3) Shortness of breath Status: Acute (4) Dyspnea Hospital Course Date of Admission: Apr 03, 2023 at 13:09 Admission Diagnosis : Family Physician/Provider: Jasmin Bland Aprn Date of Discharge: 04/06/23 Discharge Diagnosis: [ ] Hospital Course: Uneventful course after he was admitted for AECOPD with HAP. Abx maintained along with steroids. Nebs and O2 maintained. Overall he was doing well and vitals and labs remained stable and he was DC in improved condition. Labs and Pending Lab Test: Laboratory Tests 04/05/23 16:04: Glucometer 299H 04/05/23 20:47: Glucometer 178H 04/06/23 05:45: Glucometer 246H 04/06/23 07:36: White Blood Count 18.5H, Red Blood Count 3.30L, Hemoglobin 9.0L, Hematocrit 29L, Mean Corpuscular Volume 88, Mean Corpuscular Hemoglobin 27, Mean Corpuscular Hemoglobin Concent 31L, Red Cell Distribution Width 15.7H, Platelet Count 291, Mean Platelet Volume 10.6, Immature Granulocyte % (Auto) 1, Neutrophils (%) (Auto) 91H, Lymphocytes (%) (Auto) 4L, Monocytes (%) (Auto) 4, Eosinophils (%) (Auto) 0, Basophils (%) (Auto) 0, Neutrophils # (Auto) 16.8H, Lymphocytes # (Auto) 0.8L, Monocytes # (Auto) 0.8, Eosinophils # (Auto) 0.0, Basophils # (Auto) 0.0, Immature Granulocyte # (Auto) 0.2H, Neutrophils % (Manual) 91, Lymphocytes % (Manual) 5, Monocytes % (Manual) 2, Band Neutrophils 2, Anisocytosis SLIGHT, Sodium Level 137, Potassium Level 4.6, Chloride Level 106, Carbon Dioxide Level 21, Anion Gap 10, Blood Urea Nitrogen 64H, Creatinine 2.31H , Estimat Glomerular Filtration Rate 30, BUN/Creatinine Ratio 28, Glucose Level 252H, Calcium Level 8.5, Corrected Calcium 9.1, Total Bilirubin 0.2, Aspartate Amino Transf (AST/SGOT) 10, Alanine Aminotransferase (ALT/SGPT) 8, Alkaline Phosphatase 63, Total Protein 7.1, Albumin 3.3 04/06/23 11:01: Glucometer 274H Microbiology 04/03/23 Blood Culture - Preliminary, Resulted No growth Home Meds Active Lasix (Furosemide) 20 Mg Tablet 20 Mg PO DAILY Reported Glipizide 5 Mg Tablet 5 Mg PO BID WITH MEALS Folic Acid 0.4 Mg Tablet 0.4 Mg PO DAILY Vitamin B-12 (Cyanocobalamin (Vitamin B-12)) 1,000 Mcg Tablet 1,000 Mcg PO DAILY Breztri Aerosphere Inhaler (Budesonide/Glycopyr/Formoterol) 160 Mcg-9 Mcg-4.8 Mcg/Actuation Hfa.aer.ad 2 Puff IH BID Nesina (Alogliptin Benzoate) 6.25 Mg Tablet 6.25 Mg PO DAILY Carvedilol 25 Mg Tablet 12.5 Mg PO BID WITH MEALS TAKES (25MG) TABLET Flonase Allergy Relief (Fluticasone Propionate) 50 Mcg/Actuation [place].susp 1-2 [place] NSEACH DAILY Nitroglycerin 0.4 Mg Tab.subl 0.4 Mg SL UD PRN Montelukast Sodium 10 Mg Tablet 10 Mg PO 1700 Ventolin Hfa (Albuterol Sulfate) 18 Gm Hfa.aer.ad 2 Puff INH Q4H PRN Flomax (Tamsulosin HCl) 0.4 Mg Cap 0.4 Mg PO 1700 Lipitor (Atorvastatin Calcium) 40 Mg Tablet 40 Mg PO 1700 Lantus Solostar (Insulin Glargine,Hum.rec.anlog) 100 Unit/Ml (3 Ml) Insuln.pen 20-25 Units SQ 1200 Lisinopril 40 Mg Tablet 20 Mg PO DAILY TAKES OF A 40MG TAB Aspirin EC (Aspirin) 81 Mg Tablet. 81 Mg PO DAILY Clopidogrel (Clopidogrel Bisulfate) 75 Mg Tablet 75 Mg PO DAILY Pantoprazole Sodium 40 Mg Tablet.dr 40 Mg PO DAILY Assessment/Pt Instructions PCP 1 week Discharge Planning: <30 minutes discharge planning Discharge Instructions Discharge Diet: No Restrictions Discharge Physical Examination Vital Signs Vital Signs Date Time Temp Pulse Resp B/P (MAP) Pulse Ox O2 Delivery O2 Flow Rate FiO2 04/06/23 09:00 97 Nasal Cannula 3.00 04/06/23 07:27 36.2 74 20 186/78 (114) General Appearance: No Apparent Distress, WD/WN Respiratory: Chest Non Tender, Lungs Clear, Normal Breath Sounds, No Accessory Muscle Use, No Respiratory Distress Allergies: Coded Allergies: liraglutide (Verified Allergy, Unknown, 09/06/21) Discharge Summary Date of Admission Apr 03, 2023 at 13:09 Date of Discharge Discharge Date: Apr 06, 2023 Admission Diagnosis Assessment: Acute hypoxic respiratory failure PNA Chronic respiratory failure maintained on oxygen at home Chronic kidney disease stage IV managed by nephrology Hypertension COPD Former smoker Plan: Oxygen Nebulizers Monitor closely Empiric antibiotics Discharge Diagnosis Assessment: Acute hypoxic respiratory failure PNA Chronic respiratory failure maintained on oxygen at home Chronic kidney disease stage IV managed by nephrology Hypertension COPD Former smoker Plan: Oxygen Nebulizers Monitor closely Empiric antibiotics MARY MCDUFFIE DO Apr 06, 2023 13:19
[2023-04-06 14:05] VITALS: BP 186/78
== END 2023-04-06 13:17 | disposition home or self-care (01) ==
LOC: EDUNIT# 10:35 → ER 10:37 → 4TH 13:09 → UNDOADMOB 13:09 → 4TH 14:13 → UNDODISOB 04-06 13:17
PROVIDERS: ADMIT Family Medicine; ATTEND Family Medicine
DX: J96.21 Acute and chronic respiratory failure with hypoxia (principal); J18.9 Pneumonia, unspecified organism; J44.9 Chronic obstructive pulmonary disease, unspecified; I12.9 Hypertensive chronic kidney disease with stage 1 through stage 4 chronic kidney disease, or unspecified chronic kidney disease; N18.6 End stage renal disease; E11.22 Type 2 diabetes mellitus with diabetic chronic kidney disease; Z79.84 Long term (current) use of oral hypoglycemic drugs; Z87.891 Personal history of nicotine dependence; Z99.81 Dependence on supplemental oxygen; Z79.899 Other long term (current) drug therapy
CPT/HCPCS: 36415; 71045; 80053; 82947; 83605; 84484; 85007; 85025; 85027; 87040; 87636; 93005; 94640; 94760; 96365; 96366; 96372; 96375; 96376; G0378

== ENCOUNTER 2023-04-18 09:31 | Inpatient (IN) | payer OTHER, MEDICARE ==
[2023-04-18] VITALS (7 sets, daily range): BP systolic 150–186; BP diastolic 64–74
[~2023-04-18] VITALS: Ht 165 cm; Wt 98.0 kg
[~2023-04-18 09:31] MED LIST changes: +AMOX1TAB12 PO; +PRED10TA22 PO
--- NOTE | 2023-04-18 09:47 | ED Respiratory ---
General Chief Complaint: Respiratory Problems Stated Complaint: SOB Source: patient Exam Limitations: no limitations History of Present Illness Date Seen by Provider: Apr 18, 2023 Time Seen by Provider: 09:40 Initial Comments Patient is a 72-year-old male who presents to the emergency room by EMS chief complaint shortness of breath. Symptom onset rather suddenly this morning after he fell at home onto his knees. He does have a history of congestive heart eloise lure, coronary artery disease, chronic anticoagulation. Patient reportedly did not hit his head or have any loss of consciousness. He denies chest pain, pressure or tightness. He states he feels like he is "suffocating". He tells me he does believe that he takes a water pill but has not taken it this morning. He normally wears oxygen at approximately 3 L per nasal cannula. Found to have sats on his 3 L at 88% when EMS arrived. No chills, cough or other illnesses reported. Patient was given 2 DuoNeb treatments prior to arrival per EMS as well as 125 mg of Solu-Medrol. Timing/Duration: just prior to arrival Severity: moderate Prior Episodes/Possible Cause: occasional episodes Modifying Factors: Improves With Albuterol Inhaler Associated Symptoms: No chest pain/soreness; shortness of breath Allergies and Home Medications Allergies Coded Allergies: liraglutide (Verified Allergy, Unknown, 09/06/21) Patient Home Medication List Home Medication List Reviewed: Yes Albuterol Sulfate (Ventolin Hfa) 18 Gm Hfa.aer.ad, 2 PUFF INH Q4H PRN for SHORTNESS OF BREATH, (Reported) Entered as Reported by: GEORGINA ALVAREZ on 06/11/19 1459 Last Action: Reviewed Alogliptin Benzoate (Nesina) 6.25 Mg Tablet, 6.25 MG PO DAILY, (Reported) Entered as Reported by: JIM MCDONALD on 02/26/23 1122 Last Action: Reviewed Aspirin (Aspirin EC) 81 Mg Tablet.dr, 81 MG PO DAILY, (Reported) Entered as Reported by: MARLY NAVARRETE on 10/06/17 1348 Last Action: Reviewed Atorvastatin Calcium (Lipitor) 40 Mg Tablet, 40 MG PO 1700, (Reported) Entered as Reported by: DESEAN COE on 12/23/18 0731 Last Action: Reviewed Budesonide/Glycopyr/Formoterol (Breztri Aerosphere Inhaler) 160 Mcg-9 Mcg-4.8 M cg/Actuation Hfa.aer.ad, 2 PUFF IH BID, (Reported) Entered as Reported by: JIM MCDONALD on 02/26/23 112 Last Action: Reviewed Carvedilol (Carvedilol) 25 Mg Tablet, 12.5 MG PO BID WITH MEALS, (Reported) Entered as Reported by: RADHA MACKAY on 05/16/21 0819 Last Action: Reviewed Clopidogrel Bisulfate (Clopidogrel) 75 Mg Tablet, 75 MG PO DAILY, (Reported) Entered as Reported by: GEORGINA ALVAREZ on 05/16/15 1119 Last Action: Reviewed Cyanocobalamin (Vitamin B-12) (Vitamin B-12) 1,000 Mcg Tablet, 1,000 MCG PO DAILY, (Reported) Entered as Reported by: JIM MCDONALD on 02/26/23 112 Last Action: Reviewed Fluticasone Propionate (Flonase Allergy Relief) 50 Mcg/Actuation [place].susp, 1-2 [place] NSEACH DAILY, (Reported) Entered as Reported by: JIM MCDONALD on 01/19/21 1126 Last Action: Reviewed Folic Acid (Folic Acid) 0.4 Mg Tablet, 0.4 MG PO DAILY, (Reported) Entered as Reported by: JIM MCDONALD on 02/26/23 112 Last Action: Reviewed Furosemide (Furosemide) 20 Mg Tablet, 20 MG PO DAILY, (Reported) Entered as Reported by: JIM MCDONALD on 04/18/23 1533 Last Action: Reviewed Glipizide (Glipizide) 5 Mg Tablet, 5 MG PO BID WITH MEALS, (Reported) Entered as Reported by: JIM MCDONALD on 04/03/23 1607 Last Action: Reviewed Insulin Glargine,Hum.rec.anlog (Lantus Solostar) 100 Unit/Ml (3 Ml) Insuln.pen, 20-25 UNITS SQ 1200 PRN for HYPERGLYCEMIA, (Reported) Entered as Reported by: MARLY NAVARRETE on 10/06/17 1538 Last Action: Reviewed Lisinopril (Lisinopril) 40 Mg Tablet, 20 MG PO DAILY, (Reported) Entered as Reported by: MARLY NAVARRETE on 10/06/17 153 Last Action: Reviewed Montelukast Sodium (Montelukast Sodium) 10 Mg Tablet, 10 MG PO 1700, (Reported) Entered as Reported by: JIM MCDONALD on 01/19/21 1126 Last Action: Reviewed Nitroglycerin (Nitroglycerin) 0.4 Mg Tab.subl, 0.4 MG SL UD PRN for CHEST PAIN, (Reported) Entered as Reported by: JIM MCDONALD on 01/19/21 1126 Last Action: Reviewed Pantoprazole Sodium (Pantoprazole Sodium) 40 Mg Tablet.dr, 40 MG PO DAILY, (Reported) Entered as Reported by: GEORGINA ALVAREZ on 05/16/15 1118 Last Action: Reviewed Tamsulosin HCl (Flomax) 0.4 Mg Cap, 0.4 MG PO 1700, (Reported) Entered as Reported by: DESEAN COE on 12/23/18 0731 Last Action: Reviewed Discontinued Medications Furosemide (Lasix) 20 Mg Tablet, 20 MG PO DAILY Discontinued Reason: New Order Prescribed by: MARY MCDUFFIE on 02/28/23 1123 Last Action: Discontinued Prednisone (Prednisone) 10 Mg Tab.ds.pk, 40 MG PO DAILY Discontinued Reason: No Longer Taking Prescribed by: MARY MCDUFFIE on 04/06/23 1319 Last Action: Discontinued Review of Systems Review of Systems Constitutional: see HPI EENTM: no symptoms reported Respiratory: short of breath Cardiovascular: no symptoms reported Gastrointestinal: no symptoms reported Genitourinary: no symptoms reported Musculoskeletal: no symptoms reported Skin: no symptoms reported Past Vzgiesm-Xlmfhr-Emveqf Hx Patient Social History Tobacco Use?: No Smoking Status: Former Smoker Substance use?: No Alcohol Use?: No Pt feels they are or have been: No Immunizations Up To Date Tetanus Booster (TDap): Unknown PED Vaccines UTD: Yes First/Initial COVID19 Vaccinat: NOVEMBER 2020, [employer] Second COVID19 Vaccination Nomi: NOVEMBER 2020, [employer] Third COVID19 Vaccination Date: NOVEMBER 2020, DONALD Seasonal Allergies Seasonal Allergies: No Past Medical History Surgery/Hospitalization HX: Pulmonary edema 02/25, CHF, COPD, DM2, HTN Parotid gland biopsy Surgeries: Yes (CHEST TUBE INSERTION, heart cathx9 stents) Cardiac, Coronary Stent Respiratory: Yes (Uses oxygen at 4 L/min nasal cannula at home) COPD Currently Using CPAP: No Currently Using BIPAP: No Cardiac: Yes Chronic Edema/Swelling, Coronary Artery Disease, Heart Attack, High Cholesterol, Hypertension Neurological: No Neuropathy Reproductive Disorders: No Genitourinary: Yes Gastrointestinal: Yes Hepatitis, Polyps Musculoskeletal: Yes Arthritis, Chronic Back Pain Endocrine: Yes Diabetes, Non-Insulin dep HEENT: No (hemmoraging in back of both eyes-pt see specialist for it) Cataract Cancer: No Psychosocial: No Integumentary: No Blood Disorders: No Family Medical History Patient reports no known family medical history. No Pertinent Family Hx Physical Exam Vital Signs - First Documented 04/18/23 09:33 Pulse Ox 100 O2 Delivery Nasal Cannula O2 Flow Rate 10.00 Capillary Refill : Height: 5'11.00" Weight: 225lbs. 0.0oz. [age]yo; 28.24 BMI Method:Stated General Appearance: WD/WN, moderate distress Eyes: Bilateral Eye Normal Inspection, Bilateral Eye PERRL, Bilateral Eye EOMI HEENT: PERRL/EOMI Respiratory: respiratory distress, rhonchi (throughout all lung carr) Cardiovascular: regular rate, rhythm Gastrointestinal: non tender, soft Extremities: normal range of motion, non-tender, normal inspection, no pedal edema Neurologic/Psychiatric: alert, normal mood/affect, oriented x 3 Skin: normal color, warm/dry Focused Exam Lactate Level 04/18/23 11:00: Lactic Acid Level 0.51 Lactic Acid Level Laboratory Tests Test 04/18/23 11:00 Lactic Acid Level 0.51 MMOL/L (0.50-2.00) Progress/Results/Core Measures Suspected Sepsis SIRS Temperature: Pulse: Respiratory Rate: Laboratory Tests 04/18/23 09:37: White Blood Count 15.1H Blood Pressure / Mean: 04/18/23 11:00: Lactic Acid Level 0.51 Laboratory Tests 04/18/23 09:37: Creatinine 1.79H, INR Comment 1.1, Platelet Count 232, Total Bilirubin 0.6 Results/Orders Lab Results Laboratory Tests Test 04/18/23 09:37 04/18/23 09:52 04/18/23 11:00 04/18/23 14:00 Range/Units White Blood Count 15.1 H 4.3-11.0 10^3/uL Red Blood Count 2.99 L 4.30-5.52 10^6/uL Hemoglobin 8.3 L 13.3-17.7 g/dL Hematocrit 27 L 40-54 % Mean Corpuscular Volume 92 80-99 fL Mean Corpuscular Hemoglobin 28 25-34 pg Mean Corpuscular Hemoglobin Concent 30 L 32-36 g/dL Red Cell Distribution Width 17.3 H 10.0-14.5 % Platelet Count 232 130-400 10^3/uL Mean Platelet Volume 11.6 9.0-12.2 fL Immature Granulocyte % (Auto) 1 % Neutrophils (%) (Auto) 85 H 42-75 % Lymphocytes (%) (Auto) 4 L 12-44 % Monocytes (%) (Auto) 9 0-12 % Eosinophils (%) (Auto) 2 0-10 % Basophils (%) (Auto) 0 0-10 % Neutrophils # (Auto) 12.8 H 1.8-7.8 10^3/uL Lymphocytes # (Auto) 0.6 L 1.0-4.0 10^3/uL Monocytes # (Auto) 1.3 H 0.0-1.0 10^3/uL Eosinophils # (Auto) 0.2 0.0-0.3 10^3/uL Basophils # (Auto) 0.0 0.0-0.1 10^3/uL Immature Granulocyte # (Auto) 0.1 0.0-0.1 10^3/uL Neutrophils % (Manual) 89 % Lymphocytes % (Manual) 5 % Monocytes % (Manual) 4 % Eosinophils % (Manual) 2 % Anisocytosis SLIGHT Kirstie Cells SLIGHT Acanthocytes SLIGHT Prothrombin Time 14.0 12.2-14.7 SEC INR Comment 1.1 0.8-1.4 Activated Partial Thromboplast Time 23 L 24-35 SEC Sodium Level 143 135-145 MMOL/L Potassium Level 5.5 H 3.6-5.0 MMOL/L Chloride Level 106 98-107 MMOL/L Carbon Dioxide Level 26 21-32 MMOL/L Anion Gap 11 5-14 MMOL/L Blood Urea Nitrogen 44 H 7-18 MG/DL Creatinine 1.79 H 0.60-1.30 MG/DL Estimat Glomerular Filtration Rate 40 BUN/Creatinine Ratio 25 Glucose Level 161 H 70-105 MG/DL Calcium Level 8.9 8.5-10.1 MG/DL Corrected Calcium 9.6 8.5-10.1 MG/DL Magnesium Level 2.1 1.6-2.4 MG/DL Total Bilirubin 0.6 0.1-1.0 MG/DL Aspartate Amino Transf (AST/SGOT) 38 H 5-34 U/L Alanine Aminotransferase (ALT/SGPT) 29 0-55 U/L Alkaline Phosphatase 80 40-136 U/L Myoglobin 163.0 H 10.0-92.0 NG/ML Troponin I 0.049 H <0.028 NG/ML B-Type Natriuretic Peptide 377.3 H <100.0 PG/ML Total Protein 6.7 6.4-8.2 GM/DL Albumin 3.1 L 3.2-4.5 GM/DL Blood Gas Puncture Site r radial Blood Gas Patient Temperature 36.9 Arterial Blood pH 7.36 L 7.37-7.43 Arterial Blood Partial Pressure CO2 54 H 35-45 MMHG Arterial Blood Partial Pressure O2 79 79-93 MMHG Arterial Blood HCO3 29 H 23-27 MMOL/L Arterial Blood Total CO2 31.1 H 21.0-31.0 MMOL/L Arterial Blood Oxygen Saturation 95 94-100 % Arterial Blood Base Excess 4.3 H -2.5-2.5 MMOL/L Howie Test positive Blood Gas Ventilator Setting NO Blood Gas Inspired Oxygen 10 Lactic Acid Level 0.51 0.50-2.00 MMOL/L Urine Color YELLOW Urine Clarity CLEAR Urine pH 6.0 5-9 Urine Specific [place] 1.020 1.016-1.022 Urine Protein 2+ H NEGATIVE Urine Glucose (UA) NEGATIVE NEGATIVE Urine Ketones NEGATIVE NEGATIVE Urine Nitrite NEGATIVE NEGATIVE Urine Bilirubin NEGATIVE NEGATIVE Urine Urobilinogen 0.2 < = 1.0 MG/DL Urine Leukocyte Esterase NEGATIVE NEGATIVE Urine RBC (Auto) TRACE-I H NEGATIVE Urine RBC 0-2 /HPF Urine WBC 0-2 /HPF Urine Squamous Epithelial Cells 2-5 /HPF Urine Crystals NONE /LPF Urine Bacteria NEGATIVE /HPF Urine Casts NONE /LPF Urine Mucus NEGATIVE /LPF Urine Culture Indicated NO My Orders Orders - BISI MARTIN MD Cbc With Automated Diff (04/18/23 09:43) Magnesium (04/18/23 09:43) Chest 1 View, Ap/Pa Only (04/18/23 09:43) Ekg Tracing (04/18/23 09:43) Comprehensive Metabolic Panel (04/18/23 09:43) Myoglobin Serum (04/18/23 09:43) Protime With Inr (04/18/23 09:43) Partial Thromboplastin Time (04/18/23 09:43) O2 (04/18/23 09:43) Monitor-Rhythm Ecg Trace Only (04/18/23 09:43) Lipid Panel (04/19/23 06:00) Ed Iv/Invasive Line Start (04/18/23 09:43) Troponin I [place] (04/18/23 09:43) Bnp Jason (04/18/23 09:43) Manual Differential (04/18/23 09:37) Arterial Blood Gas (04/18/23 09:53) Morphine Injection (Morphine Injection (04/18/23 10:03) Morphine Injection (Morphine Injection (04/18/23 10:30) Furosemide Injection (Lasix Injection) (04/18/23 10:30) Lactic Acid Analyzer (04/18/23 10:34) Blood Culture (04/18/23 10:34) Ct Chest Wo (04/18/23 10:45) Meropenem (Merrem 500 Mg) (04/18/23 10:45) Vancomycin Injection (Vancomycin Injecti (04/18/23 10:45) Blood Culture (04/18/23 11:07) Arterial Blood Draw - Obtain (04/18/23 ) Ed Admission (Communication) (04/18/23 11:33) Medications Given in ED Vital Signs/I&O 04/18/23 04/18/23 04/18/23 04/18/23 09:33 09:40 09:40 09:50 Temp 36.9 Pulse 87 77 Resp 36 26 B/P (MAP) 180/84 (116) Pulse Ox 100 100 94 O2 Delivery Nasal Cannula Nasal Cannula Nasal Cannula O2 Flow Rate 10.00 4.00 35.00 04/18/23 04/18/23 04/18/23 04/18/23 10:30 12:40 13:47 13:55 Temp 36.9 Pulse 69 66 65 72 Resp 23 33 24 25 B/P (MAP) 173/77 Pulse Ox 92 100 100 95 O2 Delivery NIV Bilevel O2 Flow Rate 50.00 50.00 30.00 04/19/23 00:00 Intake Total 500 ml Output Total 200 ml Balance 300 ml Capillary Refill : Progress Note : Time: 11:09 Progress Note Patient seen and examined by me, evaluation today includes "chest pain protocol", EKG, Chest xray, CBC, CH12, troponin, coags, BNP. He also subsequently had blood cultures and lactic acid. Pertinent physical exam findings - WDWN male in moderate respiratory distress - with ronchus crackly breath sounds throughout. Heart is regular, not tachy. Abdomen soft. He does have 2+ pitting edema bilateral LE. Transitioned from NC to Bipap after arrival, tolerating well. DDx based on H&P includes acute on chronic CHF exacerbation, COPD exacerbation, Pneumonia. Labs, EKG and imaging independently reviewed and interpreted by me. His CBC shows a total WBC of 15.1 with Hgb and HCt 8.3 and 27 platelets of 232. 85% segmented neutrophils. CH12 pertinent for potassium elevated at 5.5; Chronic kidney disease with BUN of 44 and Creat 1.79 (actually a little better than most previous in the record.) Glucose is 161. Troponin minimally elevated at 0.049. Coags WNL. CXR bilateral increased pulmonary vascular congestion with concerns for consolidation RLL. EKg unremarkable for any acute ST segment change. Patient treated in the ED for HCAP. lactic resulted at 0.51 (not meeting severe sepsis criteria. BNP elevated at 377. Was given Lasix as well. Case was discussed with Dr Mcduffie on for [facility] Hospitalist as well as Dr Panda (cardiology). Patient admitted to the ICU with acute on chronic respiratory failure and sepsis. ECG Initial ECG Impression Date: Apr 18, 2023 Initial ECG Impression Time: 09:55 Initial ECG Rate: 70 Initial ECG Rhythm: Normal Sinus Initial ECG Intervals [place] 161 QRS 125 Qtc 434 Initial ECG Impression: Nonspecific Changes Comment LBBB (pre-existing) Diagnostic Imaging Diagonstic Imaging: Xray Plain Films/CT/US/NM/MRI: chest Comments [facility] [place] NAME: VINCENT JASSO [facility] REC#: [id number] PT STATUS: REG ER : 1950 PHYSICIAN: BISI MARTIN MD ADMIT DATE: 04/18/23/ER Signed Date of Exam:04/18/23 CHEST 1 VIEW, AP/PA ONLY INDICATION: Chest pain Portable chest 10:13 AM Comparison made to exam from 04/03/2023. There are interstitial infiltrates in the lower portions of both lungs which appear slightly worse compared to the previous exam. This may in part be due to interstitial edema. There is also some scarring and/or atelectasis in the right mid and lower lung that appear worse compared to prior study. IMPRESSION: Increasing consolidation right lung could be infiltrate and/or atelectasis. There is also diffuse interstitial thickening of the lower portions of both lungs that could be inflammatory versus from pulmonary venous hypertension. Dictated by: Dictated on workstation # [id number] Dict: 04/18/23 1019 Trans: 04/18/[address] [facility] [id number] Interpreted by: VANNESSA NOWAK MD Electronically signed by: VANNESSA NOWAK MD 04/18/23 1035 Diagonstic Imaging: CT Plain Films/CT/US/NM/MRI: chest Comments [facility] [place] NAME: VINCENT JASSO [facility] REC#: [id number] PT STATUS: REG ER : 1950 PHYSICIAN: BISI MARTIN MD ADMIT DATE: 04/18/23/ER Draft Date of Exam:04/18/23 CT CHEST WO PROCEDURE: CT chest without contrast. TECHNIQUE: Multiple contiguous axial images were obtained through the chest without the use of intravenous contrast. Auto Exposure Controls were utilized during the CT exam to meet ALARA standards for radiation dose reduction. INDICATION: History of congestive heart failure, pneumonia, increased shortness of breath. COMPARISON: CT chest from 09/10/2021 FINDINGS: The heart is mildly large. There is no pericardial effusion. There is extensive coronary atherosclerosis. There are multiple prominent mediastinal and axillary lymph nodes. A marker node includes a right lower paratracheal lymph node which measures 1.6 cm in short axis (image 46 series 2). This is stable since the prior study. There are multiple mildly prominent subcarinal lymph nodes and there appear to be hilar lymph nodes which are enlarged bilaterally but this is not well evaluated without contrast. The aorta is normal in caliber. There is a small left pleural effusion and a minimal right pleural effusion. There is a large bullous disease in the right lung apex which is unchanged compared to the prior exam and has a thickened wall. There are extensive airspace opacities in the right lung, particularly the right lower lobe and the right middle lobe. There is volume loss in the right lung. There is airspace opacity and atelectasis in the left lung. There is diffuse groundglass opacity throughout the left lung. No central endobronchial lesions are seen. No pneumothorax is seen. Imaged portions of the upper abdomen demonstrate no acute abnormality. There is a small cyst in the right kidney. There are nonobstructing calculi in the kidneys as well as atherosclerosis. There are calculi in the gallbladder. No acute osseous abnormality is seen in the spine. There are degenerative changes in the lower cervical spine. IMPRESSION: 1. Airspace and groundglass opacities in the lungs bilaterally, concerning for infection. Aspiration and an inflammatory process or in the differential as well. Underlying neoplasm is not excluded. 2. Chronic scarring and bullous disease in the right lung apex. 3. Small left and trace right pleural effusions. Dictated on workstation # [id number] Dict: 04/18/23 1112 Trans: 04/18/[address] [facility] [id number] Interpreted by: MARCELO YEE MD Electronically signed by: Departure Communication (Admissions) Time/Spoke to Admitting Phy: 10:[address] Mcduffie ([facility] Hopitalist) IP to ICU; Cards consult; Merropenem and Vanc Impression Primary Impression: Pneumonia Qualified Codes: J18.9 - Pneumonia, unspecified organism Additional Impression: Acute and chronic respiratory failure Disposition: ADMITTED INPATIENT Condition: Critical Admissions Decision to Admit Reason: Admit from ER (General) Decision to Admit/Date: Apr 18, 2023 Time/Decision to Admit Time: 10:48 Departure-Patient Inst. Referrals: MIKEY ZAZUETA APRN (PCP/Family) Primary Care Physician BISI MARTIN MD Apr 18, 2023 09:47
[2023-04-18 09:49] LABS: BASOPHILS % (AUTO) 0 % (0-10); EOSINOPHILS # (AUTO) 0.2 10^3/uL (0.0-0.3); EOSINOPHILS % (AUTO) 2 % (0-10); HEMATOCRIT 27 % (40-54); HEMOGLOBIN 8.3 g/dL (13.3-17.7); LYMPHOCYTES # (AUTO) 0.6 10^3/uL (1.0-4.0); LYMPHOCYTES % (AUTO) 4 % (12-44); MEAN CORPUSCULAR HEMOGLOBIN 28 pg (25-34); MEAN CORPUSCULAR HGB CONC 30 g/dL (32-36); MEAN CORPUSCULAR VOLUME 92 fL (80-99); MEAN PLATELET VOLUME 11.6 fL (9.0-12.2); MONOCYTES # (AUTO) 1.3 10^3/uL (0.0-1.0); MONOCYTES % (AUTO) 9 % (0-12); NEUTROPHILS # (AUTO) 12.8 10^3/uL (1.8-7.8); NEUTROPHILS % (AUTO) 85 % (42-75); PLATELET COUNT 232 10^3/uL (130-400); WHITE BLOOD COUNT 15.1 10^3/uL (4.3-11.0)
[2023-04-18 09:57] LABS: INR 1.1 (0.8-1.4)
[2023-04-18 10:00] LABS: ALBUMIN 3.1 GM/DL (3.2-4.5); POTASSIUM 5.5 MMOL/L (3.6-5.0)
[2023-04-18 10:01] LABS: CALCIUM 8.9 MG/DL (8.5-10.1)
[2023-04-18 10:03] LABS: TOTAL PROTEIN 6.7 GM/DL (6.4-8.2)
[2023-04-18 10:03] LABS: ABG BASE EXCESS 4.3 MMOL/L (-2.5-2.5); ABG OXYGEN SATURATION 95 % (94-100); ABG PCO2 54 MMHG (35-45); ABG PH 7.36 (7.37-7.43); ABG PO2 79 MMHG (79-93); ABG TCO2 31.1 MMOL/L (21.0-31.0)
[2023-04-18] MEDS ORDERED: morphine INJ 4 MG/ML 1 ML (VIAL/SYRINGE) ONE (10:03)
[2023-04-18 10:04] LABS: BILIRUBIN,TOTAL 0.6 MG/DL (0.1-1.0)
[2023-04-18 10:05] LABS: ALLENS TEST positive; INSPIRED O2 10; PATIENT TEMP 36.9; VENTILATOR NO
[2023-04-18 10:06] LABS: CREATININE SERUM 1.79 MG/DL (0.60-1.30)
[2023-04-18 10:09] LABS: MAGNESIUM 2.1 MG/DL (1.6-2.4)
[2023-04-18 10:15] LABS: NEUTROPHILS % (MANUAL) 89 %
[2023-04-18 10:16] LABS: ACANTHOCYTES SLIGHT; ANISOCYTOSIS SLIGHT; BURR CELLS SLIGHT; EOSINOPHILS % (MANUAL) 2 %; LYMPHOCYTES % (MANUAL) 5 %; MONOCYTES % (MANUAL) 4 %
[2023-04-18] MEDS ORDERED: morphine INJ 10 MG/ML 1ML (SYR OR VIAL) IVP STA (10:16)
--- NOTE | 2023-04-18 10:22 | Diagnostic Imaging Report ---
INDICATION: Chest pain Portable chest 10:13 AM Comparison made to exam from 04/03/2023. There are interstitial infiltrates in the lower portions of both lungs which appear slightly worse compared to the previous exam. This may in part be due to interstitial edema. There is also some scarring and/or atelectasis in the right mid and lower lung that appear worse compared to prior study. IMPRESSION: Increasing consolidation right lung could be infiltrate and/or atelectasis. There is also diffuse interstitial thickening of the lower portions of both lungs that could be inflammatory versus from pulmonary venous hypertension. Dictated by: Dictated on workstation # [id number]
[2023-04-18] MEDS ORDERED: FUROSEMIDE 40 MG/4 ML INJ (LASIX) IVP ONE (10:30)
[2023-04-18] MEDS ORDERED: morphine INJ 4 MG/ML 1 ML (VIAL/SYRINGE) IVP ONE (10:30)
[2023-04-18] MEDS ORDERED: MEROPENEM 500 MG in NS (IVPB) 100 ML 100 ML IV ONE (10:45)
[2023-04-18] MEDS ORDERED: VANCOMYCIN INJECTION 1,000 MG in NS (IVPB) 250 ML 250 ML IV ONE (10:45)
--- NOTE | 2023-04-18 11:25 | Diagnostic Imaging Report ---
PROCEDURE: CT chest without contrast. TECHNIQUE: Multiple contiguous axial images were obtained through the chest without the use of intravenous contrast. Auto Exposure Controls were utilized during the CT exam to meet ALARA standards for radiation dose reduction. INDICATION: History of congestive heart failure, pneumonia, increased shortness of breath. COMPARISON: CT chest from 09/10/2021 FINDINGS: The heart is mildly large. There is no pericardial effusion. There is extensive coronary atherosclerosis. There are multiple prominent mediastinal and axillary lymph nodes. A marker node includes a right lower paratracheal lymph node which measures 1.6 cm in short axis (image 46 series 2). This is stable since the prior study. There are multiple mildly prominent subcarinal lymph nodes and there appear to be hilar lymph nodes which are enlarged bilaterally but this is not well evaluated without contrast. The aorta is normal in caliber. There is a small left pleural effusion and a minimal right pleural effusion. There is a large bullous disease in the right lung apex which is unchanged compared to the prior exam and has a thickened wall. There are extensive airspace opacities in the right lung, particularly the right lower lobe and the right middle lobe. There is volume loss in the right lung. There is airspace opacity and atelectasis in the left lung. There is diffuse groundglass opacity throughout the left lung. No central endobronchial lesions are seen. No pneumothorax is seen. Imaged portions of the upper abdomen demonstrate no acute abnormality. There is a small cyst in the right kidney. There are nonobstructing calculi in the kidneys as well as atherosclerosis. There are calculi in the gallbladder. No acute osseous abnormality is seen in the spine. There are degenerative changes in the lower cervical spine. IMPRESSION: 1. Airspace and groundglass opacities in the lungs bilaterally, concerning for infection. Aspiration and an inflammatory process or in the differential as well. Underlying neoplasm is not excluded. 2. Chronic scarring and bullous disease in the right lung apex. 3. Small left and trace right pleural effusions. Dictated by: Dictated on workstation # [id number]
[2023-04-18] MEDS ORDERED: ONDANSETRON 4 MG (ZOFRAN) ORAL DISSOLVE TAB PO PRN (14:00)
[2023-04-18] MEDS ORDERED: diphenhydrAMINE 25 MG TABLET PO PRN (14:00)
[2023-04-18] MEDS ORDERED: LORazepam INJ 2 MG/ML (ATIVAN) VIAL IVP PRN (14:00)
[2023-04-18] MEDS ORDERED: VANCOMYCIN INJECTION 0.1 MG in NS (IVPB) 250 ML 250 ML IV SCH (14:00)
[2023-04-18] MEDS ORDERED: NS IV 500 ML 500 ML IV PRN ×2 (14:00)
[2023-04-18] MEDS ORDERED: MILK OF MAGNESIA 400 MG/5 ML 30 ML UDC PO PRN (14:00)
[2023-04-18] MEDS ORDERED: diphenhydrAMINE INJ 50 MG/ML VIAL IVP PRN (14:00)
[2023-04-18] MEDS ORDERED: BISACODYL 10 MG SUPPOSITORY PR PRN (14:00)
[2023-04-18] MEDS ORDERED: HYDROmorphone 2 MG/ML VIAL (DILAUDID) IV PRN (14:00)
[2023-04-18] MEDS ORDERED: CALCIUM CARBONATE 500 MG CHEW TABLET PO PRN (14:00)
[2023-04-18] MEDS ORDERED: polyethylene glycoL POWDER 17 GM (MIRALAX) PACK PO PRN (14:00)
[2023-04-18] MEDS ORDERED: LORazepam 0.5 MG (ATIVAN) TABLET PO PRN (14:00)
[2023-04-18] MEDS ORDERED: ACETAMINOPHEN 325 MG TABLET PO PRN (14:00)
[2023-04-18] MEDS ORDERED: LACTULOSE SYRUP 10GM/15ML (ENULOSE) 30ML UDC PO PRN (14:00)
[2023-04-18] MEDS ORDERED: inSUlin (REGULAR) HUMAN 1 UNIT/0.01 ML (CHARGE PER UNIT) SC PRN (14:00)
[2023-04-18] MEDS ORDERED: DexMEDEtomidine 250 ML DRIP 250 ML IV SCH (14:00)
[2023-04-18] MEDS ORDERED: MELATONIN 3 MG TABLET PO PRN (14:00)
[2023-04-18] MEDS ORDERED: ONDANSETRON 4 MG/2 ML (SDV) Z0FRAN IV PRN (14:00)
[2023-04-18 14:48] LABS: BILIRUBIN,URINE NEGATIVE (NEGATIVE); CLARITY,URINE CLEAR; COLOR,URINE YELLOW; GLUCOSE, URINE (UA) NEGATIVE (NEGATIVE); KETONES,URINE NEGATIVE (NEGATIVE); LEUKOCYTE ESTERASE ,URINE NEGATIVE (NEGATIVE); NITRITE,URINE NEGATIVE (NEGATIVE); PROTEIN,URINE 2+ (NEGATIVE)
[2023-04-18 14:55] LABS: BACTERIA,URINE NEGATIVE /HPF; RBC,URINE 0-2 /HPF; WBC,URINE 0-2 /HPF
--- NOTE | 2023-04-18 15:09 | History & Physical-Hospitalist ---
CAMERON NORMAN 04/18/23 1509: History of Present Illness HPI/Chief Complaint Our patient is a 72 yo M with a past medical history of COPD, CHF, kidney fail ure, type II diabetes, chronic anticoagulation, and multiple myocardial infarctions requiring stent placement who is admitted for right lower lobe pneumonia. Earlier this morning, he was using his walker to ambulate to the bedroom to check on his when his "knees gave out" and he fell on them. He denies losing consciousness, hitting his head, or any other injury. Almost immediately after his fall he became severely short of breath and felt like he was suffocating. He denies chest pain, pressure, palpitations, diaphoresis, nausea, or vomiting. He typically uses 3 L of oxygen at home due to his COPD but has had to use 4 L for the past few days. He denies cough, fever, chills, or recent sick contacts. His shortness of breath is improved with bipap and albuterol and worsened with activity. He notes multiple prior similar occurrences as well as multiple recent hospitalizations due to his multitude of medical conditions. He does not use a bipap or cpap for sleep. He is insulin dependant but has not been using any recently due to multiple occurrences of hypoglycemia. He has a long smoking history but quit back in January of this year. Before arrival to the ER, he was administered 2 duoneb treatments as well as 125 of solumedrol by EMS. When EMS arrived at his house, his oxygen saturation was 88% on 3 L NC. Upon arrival he was administered high-flow oxygen and labwork was drawn. The initial chest x-ray showed increasing consolidation in the right lung that could be infiltrate and/or atelectasis as well as diffuse interstitial thickening of the lower portions of both lungs that could be inflammatory or from pulmonary venous hypertension. Initial chest CT showed airspace and ground glass opacities in the lungs bilaterally without exclusion of underlying neoplasm. It also showed chronic scarring and bullous disease in the right lung apex as well as small pleural effusions. He was given furosemide and morphine as well as started on vancomycin and meropenem before being admitted as an inpatient. Source: patient, family (), RN/MD Exam Limitations: clinical condition Date Seen 04/18/23 Time Seen by a Provider: 14:15 Attending Physician Jasmin Bland Sewer Line Photo Inspector PCP Admitting Physician: Ct Mcduffie DO Attending Physician: Ct Mcduffie DO Referring Physician Date of Admission Apr 18, 2023 at 14:01 Home Medications & Allergies Home Medications Reviewed patient Home Medication Reconciliation performed by pharmacy medication reconciliations plastic process technician and/or nursing. Patients Allergies have been reviewed. Allergies Allergies Coded Allergies liraglutide (Verified Allergy, Unknown, 09/06/21) Past Rxaiwzu-Guwbqw-Dwjncr Hx Patient Social History Marrital Status: Employed/Student: retired Tobacco Use?: No (Quit in January of this year) Tobacco type used: Cigarettes Smoking Status: Former Smoker Use of E-Cig and/or Vaping dev: No Substance use?: No Alcohol Use?: No Pt feels they are or have been: No Immunizations Up To Date Date of Influenza Vaccine: Jul 08, 2021 First/Initial COVID19 Vaccinat: NOVEMBER 2020, [employer] Second COVID19 Vaccination Nomi: NOVEMBER 2020, [employer] Tetanus Booster (TDap): Unknown Hepatitis A: No Hepatitis B: No PED Vaccines UTD: Yes Date of Pneumonia Vaccine: Jul 25, 2017 Seasonal Allergies Seasonal Allergies: No Current Status Advance Directives: No Communicates: Verbally Primary Language: Citizen Of [place] Preferred Spoken Language: Citizen Of [place] Sensory deficits: Vision impairment, 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 No Pertinent Family Hx Review of Systems Constitutional: No chills, No diaphoresis, No dizziness, No fever; weakness EENTM: hearing loss (Right ear) Respiratory: No cough; dyspnea on exertion, short of breath (With less than normal levels of activity), wheezing Cardiovascular: No chest pain; edema, Hx of Intervention; No palpitations, No syncope; vascular heart diseas Gastrointestinal: No abdominal pain, No constipation; diarrhea; No nausea, No vomiting Genitourinary: no symptoms reported; No dysuria Musculoskeletal: joint pain (Bilateral knees) Skin: No lesions Psychiatric/Neurological: Denies Headache; Numbness (Due to diabetic neuropathy), Weakness Physical Exam Physical Exam Vital Signs Vital Signs - First Documented 04/18/23 04/18/23 09:33 14:20 Pulse Ox 100 O2 Delivery Nasal Cannula O2 Flow Rate 10.00 FiO2 30 Capillary Refill : Less Than 3 Seconds Height, Weight, BMI Height: 5'11.00" Weight: 225lbs. 0.0oz. 102.800205jq; 35.44 BMI Method:Stated General Appearance: No Apparent Distress, Chronically ill, Obese Eyes: Bilateral Eye Normal Inspection, Bilateral Eye PERRL, Bilateral Eye EOMI HEENT: PERRL/EOMI, Normal ENT Inspection; No Scleral Icterus (L), No Scleral Icterus (R) Neck: Normal Inspection, Non Tender, Supple; No Carotid Bruit, No Lymphadenopathy (L), No Lymphadenopathy (R) Respiratory: Chest Non Tender, Crackles (In right lower lobe), Decreased Breath Sounds (In left lung), Wheezing (In right lung) Cardiovascular: Regular Rate, Rhythm, No Gallop, No JVD, No Murmur, Normal Peripheral Pulses Gastrointestinal: Normal Bowel Sounds, Non Tender, Soft Rectal: Deferred Extremity: Normal Capillary Refill, Non Tender, No Calf Tenderness, Pedal Edema (1+) Neurologic/Psychiatric: Alert, Oriented x3, Normal Mood/Affect Skin: Normal Color, Warm/Dry Results Results/Procedures Labs Laboratory Tests 04/18/23 09:37 Patient resulted labs reviewed. Imaging: Reviewed Imaging Films, Reviewed Imaging Report Imaging Date of Exam:04/18/23 CT CHEST WO PROCEDURE: CT chest without contrast. TECHNIQUE: Multiple contiguous axial images were obtained through the chest without the use of intravenous contrast. Auto Exposure Controls were utilized during the CT exam to meet ALARA standards for radiation dose reduction. INDICATION: History of congestive heart failure, pneumonia, increased shortness of breath. COMPARISON: CT chest from 09/10/2021 FINDINGS: The heart is mildly large. There is no pericardial effusion. There is extensive coronary atherosclerosis. There are multiple prominent mediastinal and axillary lymph nodes. A marker node includes a right lower paratracheal lymph node which measures 1.6 cm in short axis (image 46 series 2). This is stable since the prior study. There are multiple mildly prominent subcarinal lymph nodes and there appear to be hilar lymph nodes which are enlarged bilaterally but this is not well evaluated without contrast. The aorta is normal in caliber. There is a small left pleural effusion and a minimal right pleural effusion. There is a large bullous disease in the right lung apex which is unchanged compared to the prior exam and has a thickened wall. There are extensive airspace opacities in the right lung, particularly the right lower lobe and the right middle lobe. There is volume loss in the right lung. There is airspace opacity and atelectasis in the left lung. There is diffuse groundglass opacity throughout the left lung. No central endobronchial lesions are seen. No pneumothorax is seen. Imaged portions of the upper abdomen demonstrate no acute abnormality. There is a small cyst in the right kidney. There are nonobstructing calculi in the kidneys as well as atherosclerosis. There are calculi in the gallbladder. No acute osseous abnormality is seen in the spine. There are degenerative changes in the lower cervical spine. IMPRESSION: 1. Airspace and groundglass opacities in the lungs bilaterally, concerning for infection. Aspiration and an inflammatory process or in the differential as well. Underlying neoplasm is not excluded. 2. Chronic scarring and bullous disease in the right lung apex. 3. Small left and trace right pleural effusions. Dictated by: Dictated on workstation # [id number] Dict: 04/18/23 1112 Trans: 04/18/23 1156 CVB [id number] Interpreted by: MARCELO YEE MD Electronically signed by: MARCELO YEE MD 04/18/23 1156 Date of Exam:04/18/23 CHEST 1 VIEW, AP/PA ONLY INDICATION: Chest pain Portable chest 10:13 AM Comparison made to exam from 04/03/2023. There are interstitial infiltrates in the lower portions of both lungs which appear slightly worse compared to the previous exam. This may in part be due to interstitial edema. There is also some scarring and/or atelectasis in the right mid and lower lung that appear worse compared to prior study. IMPRESSION: Increasing consolidation right lung could be infiltrate and/or atelectasis. There is also diffuse interstitial thickening of the lower portions of both lungs that could be inflammatory versus from pulmonary venous hypertension. Dictated by: Dictated on workstation # [id number] Dict: 04/18/23 1019 Trans: 04/18/23 1035 ARCHANA [id number] Interpreted by: VANNESSA NOWAK MD Electronically signed by: VANNESSA NOWAK MD 04/18/23 1035 Meds As indicated in medications list Assessment/Plan Admission Diagnosis Right Lower Lobe Pneumonia of unknown etiology Admission Status: Inpatient Order (span 2 midnights) Reason for Inpatient Admission: Inpatient admission is required due to complex and serious patient conditions with multiple significant comorbidities. IV antibiotics and careful monitoring of vital signs and labwork is necessary for patient safety. Assessment and Plan Right Lower Lobe Pneumonia of unknown etiology Hypercapnic Respiratory Failure COPD exacerbation -Continue treatment with meropenem and vancomycin -Monitor vancomycin levels for effectiveness and toxicity -Continue dexamethasone 4 mg Q12 HR IV for pneumonia and COPD exacerbation -Continue respiratory support with bipap therapy -Administer dexmedetomidine and ativan to help tolerate bipap treatment -Continue to monitor with serial ABGs -Continue to monitor with daily CXRs Chronic kidney disease -BUN and creatinine were elevated at admission with an eGFR of 40 -Carefully monitor kidney function through daily labs as furosemide will likely exacerbate kidney dysfunction CHF -Initial BNP was 377.3 with bilateral, 1+ pitting edema of the shins -Continue furosemide 40 mg with careful monitoring of kidney function Hyperkalemia -Initial potassium was increased at 5.5 -Daily furosemide should help to normalize levels -Carefully monitor with daily chemistries Type II diabetes (insulin dependant) -Administered steroids will likely exacerbate condition. -Sliding scale insulin with Novolog -Novolin 10 units as needed -Continue to monitor with accuchecks and serial chemistries Normocytic Anemia -Initial Hgb was 8.3, this likely of chronic disease -Continue to monitor with serial CBCs Bowel regimen available as needed for constipation DVT prophylaxis: lovenox 40 mg Diet: low sodium Disposition: admit for inpatient treatment RETACT DO 04/18/232056: History of Present Illness Source: patient, family (), RN/MD Exam Limitations: clinical condition (bipap) Past Xzztddw-Ppoylc-Mdxnzi Hx Patient Social History Marrital Status: Employed/Student: retired Tobacco Use?: No (Quit in January of this year) Family Medical History Patient reports no known family medical history. Review of Systems Constitutional: see HPI Respiratory: dyspnea on exertion, short of breath (With less than normal levels of activity) Physical Exam Physical Exam General Appearance: Anxious, Chronically ill, Mild Distress Eyes: Right Eye Normal Inspection, Right Eye PERRL HEENT: PERRL/EOMI, Normal ENT Inspection, Pharynx Normal, Moist Mucous Membranes Neck: Full Range of Motion, Normal Inspection, Non Tender Respiratory: Chest Non Tender, No Respiratory Distress, Accessory Muscle Use, Crackles (In right lower lobe), Decreased Breath Sounds (In left lung), Wheezing (In right lung) Cardiovascular: Regular Rate, Rhythm, No Edema, No Gallop, No JVD, No Murmur, Normal Peripheral Pulses Gastrointestinal: Normal Bowel Sounds, No Organomegaly, No Pulsatile Mass, Non Tender, Soft Back: Normal Inspection, No CVA Tenderness, No Vertebral Tenderness Extremity: Normal Capillary Refill, Normal Inspection, Normal Range of Motion, Non Tender, No Calf Tenderness, No Pedal Edema Neurologic/Psychiatric: Alert, Oriented x3, No Motor/Sensory Deficits, Normal Mood/Affect Skin: Normal Color, Warm/Dry Lymphatic: No Adenopathy Assessment/Plan Admission Diagnosis Assessment: Acute on chronic respiratory failure requiring biPAP PNA CHF Plan: ICU Bipap Admission Status: Inpatient Order (span 2 midnights) Reason for Inpatient Admission: resp failure Supervisory-Addendum Brief Verification & Attestation Participated in pt care: history, MDM, physical Personally performed: exam, history, MDM, supervision of care Care discussed with: Medical Student Procedures: n/a Results interpretation: Verified all documentation Verification and Attestation of Medical Student E/M Service A medical student performed and documented this service in my presence. I reviewed and verified all information documented by the medical student and made modifications to such information, when appropriate. I personally performed the physical exam and medical decision making. Ct Mcduffie, Apr 18, 2023,20:56 CAMERON NORMAN Apr 18, 2023 15:09 CT MCDUFFIE DO Apr 18, 2023 20:57
[2023-04-18] MEDS ORDERED: RT-ALBUTEROL SULF 2.5 MG/3 ML PRE-MIX VIAL INH PRN (15:15)
[2023-04-18] MEDS ORDERED: FURO20TA4 PO (15:33)
--- NOTE | 2023-04-18 15:42 | Consultation-Cardiology ---
HPI-Cardiology Cardiology Consultation: Date of Consultation 04/18/23 Date of Admission Attending Physician Jasmin Bland Aprn Admitting Physician Admitting Physician: Ct Mcduffie DO Attending Physician: Ct Mcduffie DO Consulting Physician Demetri PALACIOS MD HPI: Time Seen by a Provider: 16:15 Chief Complaint: Shortness of breath This is a 72-year-old gentleman who has numerous and complicated medical and cardiac history. He has history of COPD and long history of active smoking. He quit smoking almost a month ago. He has stage IV chronic kidney disease, type 2 diabetes, severe CAD with multiple interventions as well as PAD with multiple interventions done here and in [place]. Patient also complains of severe back pain. He complains of worsening shortness of breath; which has been getting worse over time. In the ER he was found to be hypoxic on oxygen. Required IV steroids. CT chest showed possibility of pneumonia but heart failure cannot be ruled out. Much more comfortable when I saw him after initial ER treatment helped him. Review of Systems-Cardiology Review of Systems Constitutional: tiredness Eyes: other (Chronic decreased vision in 1 eye.) Ears/Nose/Throat: no symptoms reported Respiratory: SOB at rest Cardiovascular: other (Orthopnea) Gastrointestinal: no symptoms reported Genitourinary: no symptoms reported Musculoskeletal: back pain Skin: no symptoms reported Psychiatric/Neurological: no symptoms reported Hematologic: no symptoms reported TAN-[id number]-[id number] Hx Patient Social History Marrital Status: Employed/Student: retired Smoking Status: Former Smoker Alcohol Use?: No Pt feels they are or have been: No Tobacco type used: Cigarettes Immunizations Up To Date Tetanus Booster (TDap): Unknown Date of Pneumonia Vaccine: Jul 25, 2017 Date of Influenza Vaccine: Jul 08, 2021 Past Medical History PMH As described under Assessment. Family Medical History Family Medical History: He does not report fam h/o early CAD Family History: Patient reports no known family medical history. Allergies and Home Medications Allergies Coded Allergies: liraglutide (Verified Allergy, Unknown, 09/06/21) Patient Home Medication List Home Medication List Reviewed: Yes Albuterol Sulfate (Ventolin Hfa) 18 Gm Hfa.aer.ad, 2 PUFF INH Q4H PRN for SHORTNESS OF BREATH, (Reported) Entered as Reported by: GEORGINA ALVAREZ on 06/11/19 1459 Last Action: Reviewed Alogliptin Benzoate (Nesina) 6.25 Mg Tablet, 6.25 MG PO DAILY, (Reported) Entered as Reported by: JIM MCDONALD on 02/26/23 112 Last Action: Reviewed Aspirin (Aspirin EC) 81 Mg Tablet.dr, 81 MG PO DAILY, (Reported) Entered as Reported by: MARLY NAVARRETE on 10/06/17 1348 Last Action: Reviewed Atorvastatin Calcium (Lipitor) 40 Mg Tablet, 40 MG PO 1700, (Reported) Entered as Reported by: DESEAN COE on 12/23/18 0731 Last Action: Reviewed Budesonide/Glycopyr/Formoterol (Breztri Aerosphere Inhaler) 160 Mcg-9 Mcg-4.8 Mcg/Actuation Hfa.aer.ad, 2 PUFF IH BID, (Reported) Entered as Reported by: JIM MCDONALD on 02/26/23 112 Last Action: Reviewed Carvedilol (Carvedilol) 25 Mg Tablet, 12.5 MG PO BID WITH MEALS, (Reported) Entered as Reported by: RADHA MACKAY on 05/16/21 0819 Last Action: Reviewed Clopidogrel Bisulfate (Clopidogrel) 75 Mg Tablet, 75 MG PO DAILY, (Reported) Entered as Reported by: GEORGINA ALVAREZ on 05/16/15 1119 Last Action: Reviewed Cyanocobalamin (Vitamin B-12) (Vitamin B-12) 1,000 Mcg Tablet, 1,000 MCG PO DAILY, (Reported) Entered as Reported by: JIM MCDONALD on 02/26/23 112 Last Action: Reviewed Fluticasone Propionate (Flonase Allergy Relief) 50 Mcg/Actuation [place].susp, 1-2 SPRAY NSEACH DAILY, (Reported) Entered as Reported by: JIM MCDONALD on 01/19/21 112 Last Action: Reviewed Folic Acid (Folic Acid) 0.4 Mg Tablet, 0.4 MG PO DAILY, (Reported) Entered as Reported by: JIM MCDONALD on 02/26/23 112 Last Action: Reviewed Furosemide (Furosemide) 20 Mg Tablet, 20 MG PO DAILY, (Reported) Entered as Reported by: JIM MCDONALD on 04/18/23 1533 Last Action: Reviewed Glipizide (Glipizide) 5 Mg Tablet, 5 MG PO BID WITH MEALS, (Reported) Entered as Reported by: JIM MCDONALD on 04/03/23 1607 Last Action: Reviewed Insulin Glargine,Hum.rec.anlog (Lantus Solostar) 100 Unit/Ml (3 Ml) Insuln.pen, 20-25 UNITS SQ 1200 PRN for HYPERGLYCEMIA, (Reported) Entered as Reported by: MARLY NAVARRETE on 10/06/17 1538 Last Action: Reviewed Lisinopril (Lisinopril) 40 Mg Tablet, 20 MG PO DAILY, (Reported) Entered as Reported by: MARLY NAVARRETE on 10/06/17 1535 Last Action: Reviewed Montelukast Sodium (Montelukast Sodium) 10 Mg Tablet, 10 MG PO 1700, (Reported) Entered as Reported by: JIM MCDONALD on 01/19/21 1126 Last Action: Reviewed Nitroglycerin (Nitroglycerin) 0.4 Mg Tab.subl, 0.4 MG SL UD PRN for CHEST PAIN, (Reported) Entered as Reported by: JIM MCDONALD on 01/19/21 112 Last Action: Reviewed Pantoprazole Sodium (Pantoprazole Sodium) 40 Mg Tablet.dr, 40 MG PO DAILY, (Reported) Entered as Reported by: GEORGINA ALVAREZ on 05/16/15 1118 Last Action: Reviewed Tamsulosin HCl (Flomax) 0.4 Mg Cap, 0.4 MG PO 1700, (Reported) Entered as Reported by: DESEAN COE on 12/23/18 0731 Last Action: Reviewed Discontinued Medications Furosemide (Lasix) 20 Mg Tablet, 20 MG PO DAILY Discontinued Reason: New Order Prescribed by: CT MCDUFFIE on 02/28/23 1123 Last Action: Discontinued Prednisone (Prednisone) 10 Mg Tab.ds.pk, 40 MG PO DAILY Discontinued Reason: No Longer Taking Prescribed by: CT MCDUFFIE on 04/06/23 1319 Last Action: Discontinued Exam Vital Signs Vital Signs Date Time Temp Pulse Resp B/P (MAP) Pulse Ox O2 Delivery O2 Flow Rate FiO2 04/19/23 13:18 36.1 81 18 164/70 (101) 96 Nasal Cannula 4.00 04/19/23 10:41 36 Physical Exam Constitutional: In mild respiratory distress. Chest: Decreased air entry bilaterally. CVS: Regular rhythm. No significant murmur. Neuro: Nonfocal. No significant pedal edema. Labs Laboratory Tests Test 04/18/23 16:42 04/18/23 21:18 04/19/23 04:48 04/19/23 10:31 Range/Units Glucometer 219 H 233 H 210 H 70-110 MG/DL White Blood Count 9.0 4.3-11.0 10^3/uL Red Blood Count 2.77 L 4.30-5.52 10^6/uL Hemoglobin 7.6 L 13.3-17.7 g/dL Hematocrit 25 L 40-54 % Mean Corpuscular Volume 89 80-99 fL Mean Corpuscular Hemoglobin 27 25-34 pg Mean Corpuscular Hemoglobin Concent 31 L 32-36 g/dL Red Cell Distribution Width 16.7 H 10.0-14.5 % Platelet Count 200 130-400 10^3/uL Mean Platelet Volume 11.2 9.0-12.2 fL Immature Granulocyte % (Auto) 0 % Neutrophils (%) (Auto) 91 H 42-75 % Lymphocytes (%) (Auto) 4 L 12-44 % Monocytes (%) (Auto) 5 0-12 % Eosinophils (%) (Auto) 0 0-10 % Basophils (%) (Auto) 0 0-10 % Neutrophils # (Auto) 8.2 H 1.8-7.8 10^3/uL Lymphocytes # (Auto) 0.3 L 1.0-4.0 10^3/uL Monocytes # (Auto) 0.4 0.0-1.0 10^3/uL Eosinophils # (Auto) 0.0 0.0-0.3 10^3/uL Basophils # (Auto) 0.0 0.0-0.1 10^3/uL Immature Granulocyte # (Auto) 0.0 0.0-0.1 10^3/uL Sodium Level 140 135-145 MMOL/L Potassium Level 4.5 3.6-5.0 MMOL/L Chloride Level 106 98-107 MMOL/L Carbon Dioxide Level 22 21-32 MMOL/L Anion Gap 12 5-14 MMOL/L Blood Urea Nitrogen 56 H 7-18 MG/DL Creatinine 2.20 H 0.60-1.30 MG/DL Estimat Glomerular Filtration Rate 31 BUN/Creatinine Ratio 25 Glucose Level 265 H 70-105 MG/DL Calcium Level 8.6 8.5-10.1 MG/DL Corrected Calcium 9.4 8.5-10.1 MG/DL Phosphorus Level 5.0 H 2.3-4.7 MG/DL Magnesium Level 2.0 1.6-2.4 MG/DL Total Bilirubin 0.3 0.1-1.0 MG/DL Aspartate Amino Transf (AST/SGOT) 14 5-34 U/L Alanine Aminotransferase (ALT/SGPT) 23 0-55 U/L Alkaline Phosphatase 75 40-136 U/L Total Protein 6.2 L 6.4-8.2 GM/DL Albumin 3.0 L 3.2-4.5 GM/DL Triglycerides Level 68 <150 MG/DL Cholesterol Level 130 < 200 MG/DL LDL Cholesterol Direct 66 1-129 MG/DL VLDL Cholesterol 14 5-40 MG/DL HDL Cholesterol 47 40-60 MG/DL ECG Impression ECG Initial ECG Rhythm: Normal Sinus Initial ECG Intervals Left bundle branch block. A/P-Cardiology Assessment/Admission Diagnosis Acute on chronic respiratory failure, Severe diabetes, CAD, PAD, COPD exacerbation/pneumonia, Acute on chronic diastolic congestive heart failure, Stage IV chronic kidney disease, Active smoking, Mildly positive troponin, Left bundle branch block Moderate to severe back pain. Plan Acute on chronic respiratory failure, likely COPD exacerbation and pneumonia. Contribution from acute on chronic diastolic congestive heart failure. Elevated BNP. IV steroids given in the ER. Lasix. Severe diabetes, defer to the primary team. CAD, continue antiplatelet therapy. PAD, no active issues. COPD exacerbation/pneumonia, on IV antibiotics. Acute on chronic diastolic congestive heart failure, given Lasix. Stage IV chronic kidney disease, monitor kidney function very closely. Avoid nephrotoxins. Active smoking, patient quit smoking on . He was congratulated. Mildly positive troponin, likely type II MS due to acute respiratory failure. However patient's last stress test was in 2020. He has a left bundle branch block. It is prudent to do stress test with nuclear imaging early next week when he is more stable from the pulmonary perspective. Left bundle branch block Moderate to severe back pain. Demetri PALACIOS MD Apr 18, 2023 15:42
[2023-04-18] MEDS: ENOXAPARIN 40 MG/0.4 ML SYRINGE SC SCH (17:15)
[2023-04-18] MEDS: inSUlin ASPART (NovoLOG) 1 UNIT/0.01 ML (CHARGE PER UNIT) SC SCH ×2 (17:15→21:21)
--- NOTE | 2023-04-18 18:42 | Tele-ICU Consult ---
History of Present Illness History of Present Illness Date Seen by Provider: Apr 18, 2023 Time Seen by Provider: 15:01 Date of Admission History of Present Illness (Tele-ICU Physician , consultation as per request of PCP Service provided via interactive audio and video telecommunications E-CARE system to a patient admitted to ICU bed in [facility]. Available chart/ vitals / labs / Images reviewed H&P is from ER notes Patient's information available about PMH, Shx, Fhx allergy reviewed inEMR. ROS as per chart and RN report Now in ICU, hemodynamically stable Video assessment done using teleICU camera, rest of exam as per RN Discussed with RN. Hospital course: (04/18) 72M admitted with PNA, hypoxic, CKD, hyperkalemic A/P Acute resp failure, VO /AECOPD/?PNA - On BIPAP rr 24 TV 400 MV 9L - avx, steroids , nebs , lasix - initiated AECOPD - steroids , nebs Possible pNA - abx started Chronic respiratory failure maintained on oxygen at home Chronic kidney disease stage IV managed by nephrology Lines : periph , (Central Line Necessity Reviewed) Johnson: OG: Nutrition: Analgesia: Anxiety/ delirium VTE Prophylaxis: maxime 40 Stress Ulcer Prophylaxis: Plans in collaboration with bedside consultants and IM MDs. Discussed with RN to reach out if any questions or concerns A total of 32 minutes of critical care time was devoted to this patient today, required to treat and/or prevent further deterioration of critical care conditi on ( as above ) . I am remotely monitoring this patient from another state. I am unable to do the bedside exam, and history/physical and pertinent information is taken from other notes in the computer and bedside staff. . Allergies and Home Medications Allergies Coded Allergies: liraglutide (Verified Allergy, Unknown, 09/06/21) Home Medications Albuterol Sulfate 18 Gm Hfa.aer.ad, 2 PUFF INH Q4H PRN for SHORTNESS OF BREATH, (Reported) Alogliptin Benzoate 6.25 Mg Tablet, 6.25 MG PO DAILY, (Reported) Aspirin 81 Mg Tablet.dr, 81 MG PO DAILY, (Reported) Atorvastatin Calcium 40 Mg Tablet, 40 MG PO 1700, (Reported) Budesonide/Glycopyr/Formoterol 160 Mcg-9 Mcg-4.8 Mcg/Actuation Hfa.aer.ad, 2 PUFF IH BID, (Reported) Carvedilol 25 Mg Tablet, 12.5 MG PO BID WITH MEALS, (Reported) TAKES (25MG) TABLET Clopidogrel Bisulfate 75 Mg Tablet, 75 MG PO DAILY, (Reported) Cyanocobalamin (Vitamin B-12) 1,000 Mcg Tablet, 1,000 MCG PO DAILY, (Reported) Fluticasone Propionate 50 Mcg/Actuation [place].susp, 1-2 SPRAY NSEACH DAILY, (Reported) Folic Acid 0.4 Mg Tablet, 0.4 MG PO DAILY, (Reported) Furosemide 20 Mg Tablet, 20 MG PO DAILY, (Reported) Glipizide 5 Mg Tablet, 5 MG PO BID WITH MEALS, (Reported) Insulin Glargine,Hum.rec.anlog 100 Unit/Ml (3 Ml) Insuln.pen, 20-25 UNITS SQ 1200 PRN for HYPERGLYCEMIA, (Reported) Lisinopril 40 Mg Tablet, 20 MG PO DAILY, (Reported) TAKES OF A 40MG TAB Montelukast Sodium 10 Mg Tablet, 10 MG PO 1700, (Reported) Nitroglycerin 0.4 Mg Tab.subl, 0.4 MG SL UD PRN for CHEST PAIN, (Reported) Pantoprazole Sodium 40 Mg Tablet.dr, 40 MG PO DAILY, (Reported) Tamsulosin HCl 0.4 Mg Cap, 0.4 MG PO 1700, (Reported) Past Medical/Social/Family Hx Patient Social History Marrital Status: Employed/Student: retired Tobacco Use?: No (Quit in January of this year) Tobacco type used: Cigarettes Smoking Status: Former Smoker Use of E-Cig and/or Vaping dev: No Substance use?: No Alcohol Use?: No Pt stated abuse/neglect: No Immunizations Up To Date Influenza Vaccine Up-to-Date: No; Not Current First/Initial COVID19 Vaccinat: NOVEMBER 2020, [employer] Second COVID19 Vaccination Nomi: NOVEMBER 2020, [employer] Tetanus Booster (TDap): Unknown Hepatitis A: No Hepatitis B: No TB Skin Test: Negative Date of Pneumonia Vaccine: Jul 25, 2017 Current Status Advance Directives: No Communicates: Verbally Primary Language: Cambodian Preferred Spoken Language: Cambodian Sensory deficits: Vision impairment, Hearing impairment (In right ear, post- parotid biopsy) Implanted or Applied Medical D: Stents Review of Systems Constitutional: see HPI Focused Exam Lactate Level 7/21/23 11:00: Lactic Acid Level 0.51 Height, Weight, BMI Height: 5'.00" Weight: 225lbs. 0.0oz. 102.001539ru; 35.44 BMI Method:Stated Exam Exam Patient acknowledged, consented, and participated in this virtual visit which was conducted using real time audio/video Vital Signs Date Time Temp Pulse Resp B/P (MAP) Pulse Ox O2 Delivery O2 Flow Rate FiO2 04/18/23 18:17 NIV Bilevel 30.00 04/18/23 18:10 89 165/99 (121) 100 Nasal Cannula 5.00 04/18/23 17:00 89 190/102 (131) 100 Nasal Cannula 5.00 04/18/23 16:39 36.4 04/18/23 16:00 72 180/75 (110) 98 Nasal Cannula 5.00 04/18/23 15:06 36.9 75 95 35 04/18/23 15:00 67 185/87 (119) 93 NIV Bilevel 30.00 04/18/23 14:20 93 NIV Bilevel 30 04/18/23 14:08 73 04/18/23 13:55 72 25 95 30.00 04/18/23 13:47 36.9 65 24 173/77 100 NIV Bilevel 50.00 04/18/23 12:40 66 33 100 04/18/23 10:30 69 23 92 50.00 04/18/23 09:50 77 26 94 35.00 04/18/23 09:40 Nasal Cannula 4.00 04/18/23 09:40 36.9 87 36 180/84 (116) 100 Nasal Cannula 04/18/23 09:33 100 Nasal Cannula 10.00 Height & Weight Height: 5'.00" Weight: 225lbs. 0.0oz. 102.538905wv; 35.44 BMI Method:Stated General Appearance: No Apparent Distress, Chronically ill, Obese, Other HEENT: PERRL/EOMI, Normal ENT Inspection; No Scleral Icterus (L), No Scleral Icterus (R) Neck: Normal Inspection, Non Tender, Supple; No Carotid Bruit, No Lymphadenopathy (L), No Lymphadenopathy (R) Respiratory: Chest Non Tender, Crackles (In right lower lobe), Decreased Breath Sounds (In left lung), Wheezing (In right lung) Cardiovascular: Regular Rate, Rhythm, No Gallop, No JVD, No Murmur, Normal Peripheral Pulses Capillary Refill: Less Than 3 Seconds Gastrointestinal: non tender, soft Extremity: Normal Capillary Refill, Non Tender, No Calf Tenderness, Pedal Edema (1+) Neurologic/Psychiatric: Alert, Oriented x3, Normal Mood/Affect Skin: Normal Color, Warm/Dry Results Lab Laboratory Tests 04/18/23 09:37 Assessment/Plan Assessment/Plan 1 JESSY RAMIREZ MD Apr 18, 2023 18:42
[2023-04-18] MEDS: RT-ALBUTEROL/IPRATROPIUM 3 ML (DUONEB) VIAL INH SCH ×2 (18:47→21:09)
[2023-04-18] MEDS: VANCOMYCIN 1250 MG/NS 250 ML PREMIX IV SCH (19:16)
[2023-04-18] MEDS: SENNOSIDES 8.6 MG (SENOKOT) TAB PO SCH (21:12)
[2023-04-18] MEDS: DOCUSATE SODIUM 100 MG CAPSULE PO SCH (21:12)
[2023-04-18] MEDS: dexAMETHasone INJ 4 MG/ML SDV IV SCH (21:12)
[2023-04-18] MEDS: MEROPENEM 500 MG in NS (IVPB) 100 ML 100 ML IV SCH (21:13)
[2023-04-18] MEDS: ANTACID SUSP 30 ML UDC (MYLANTA) PO PRN (22:31)
[2023-04-19 02:14] VITALS: BP 167/80
[2023-04-19] MEDS: RT-ALBUTEROL/IPRATROPIUM 3 ML (DUONEB) VIAL INH SCH ×4 (02:14→21:10)
[2023-04-19] MEDS: MEROPENEM 500 MG in NS (IVPB) 100 ML 100 ML IV SCH ×3 (04:39→21:11)
[2023-04-19] MEDS: ANTACID SUSP 30 ML UDC (MYLANTA) PO PRN (04:47)
[2023-04-19 05:18] LABS: BASOPHILS % (AUTO) 0 % (0-10); EOSINOPHILS % (AUTO) 0 % (0-10); HEMATOCRIT 25 % (40-54); HEMOGLOBIN 7.6 g/dL (13.3-17.7); LYMPHOCYTES # (AUTO) 0.3 10^3/uL (1.0-4.0); LYMPHOCYTES % (AUTO) 4 % (12-44); MEAN CORPUSCULAR HEMOGLOBIN 27 pg (25-34); MEAN CORPUSCULAR HGB CONC 31 g/dL (32-36); MEAN CORPUSCULAR VOLUME 89 fL (80-99); MEAN PLATELET VOLUME 11.2 fL (9.0-12.2); MONOCYTES # (AUTO) 0.4 10^3/uL (0.0-1.0); MONOCYTES % (AUTO) 5 % (0-12); NEUTROPHILS # (AUTO) 8.2 10^3/uL (1.8-7.8); NEUTROPHILS % (AUTO) 91 % (42-75); PLATELET COUNT 200 10^3/uL (130-400)
[2023-04-19 05:34] LABS: BILIRUBIN,TOTAL 0.3 MG/DL (0.1-1.0); CALCIUM 8.6 MG/DL (8.5-10.1); CREATININE SERUM 2.2 MG/DL (0.60-1.30); POTASSIUM 4.5 MMOL/L (3.6-5.0); TOTAL PROTEIN 6.2 GM/DL (6.4-8.2)
[2023-04-19] MEDS ORDERED: MAGNESIUM 1 GM/100 ML IVPB 100 ML IV SCH ×2 (06:00)
[2023-04-19] MEDS ORDERED: KCL 20 MEQ TAB (K-DUR) PO SCH ×2 (06:00)
[2023-04-19] MEDS ORDERED: POTASSIUM CL 10MEQ/50ML IVPB 50 ML IV SCH ×2 (06:00)
[2023-04-19] MEDS ORDERED: POTASSIUM BICARB 20 MEQ (EFFER-K) TABLET PO SCH (06:00)
[2023-04-19] MEDS: cloNIDine 0.1 MG TABLET PO PRN (06:03)
[2023-04-19] MEDS: inSUlin ASPART (NovoLOG) 1 UNIT/0.01 ML (CHARGE PER UNIT) SC SCH ×4 (06:03→20:36)
--- NOTE | 2023-04-19 06:45 | Progress Note - Hospitalist ---
Subjective HPI/CC On Admission Date Seen by Provider: Apr 19, 2023 Time Seen by Provider: 11:00 Our patient is a 72 yo M with a past medical history of COPD, CHF, kidney failure, type II diabetes, chronic anticoagulation, and multiple myocardial infarctions requiring stent placement who is admitted for right lower lobe pneumonia. Earlier this morning, he was using his walker to ambulate to the bedroom to check on his when his "knees gave out" and he fell on them. He denies losing consciousness, hitting his head, or any other injury. Almost immediately after his fall he became severely short of breath and felt like he was suffocating. He denies chest pain, pressure, palpitations, diaphoresis, nausea, or vomiting. He typically uses 3 L of oxygen at home due to his COPD but has had to use 4 L for the past few days. He denies cough, fever, chills, or recent sick contacts. His shortness of breath is improved with bipap and albuterol and worsened with activity. He notes multiple prior similar occurrences as well as multiple recent hospitalizations due to his multitude of medical conditions. He does not use a bipap or cpap for sleep. He is insulin dependant but has not been using any recently due to multiple occurrences of hypoglycemia. He has a long smoking history but quit back in January of this year. Before arrival to the ER, he was administered 2 duoneb treatments as well as 125 of solumedrol by EMS. When EMS arrived at his house, his oxygen saturation was 88% on 3 L NC. Upon arrival he was administered high-flow oxygen and labwork was drawn. The initial chest x-ray showed increasing consolidation in the right lung that could be infiltrate and/or atelectasis as well as diffuse interstitial thickening of the lower portions of both lungs that could be inflammatory or from pulmonary venous hypertension. Initial chest CT showed airspace and ground glass opacities in the lungs bilaterally without exclusion of underlying neoplasm. It also showed chronic scarring and bullous disease in the right lung apex as well as small pleural effusions. He was given furosemide and morphine as well as started on vancomycin and meropenem before being admitted as an inpatient. Subjective/Events-last exam Improved overall Off biPAP PTO ordered Less distress Review of Systems General: Fatigue, Malaise Focused Exam Lactate Level 04/18/23 11:00: Lactic Acid Level 0.51 Objective Exam Vital Signs Vital Signs Date Time Temp Pulse Resp B/P (MAP) Pulse Ox O2 Delivery O2 Flow Rate FiO2 04/19/23 12:00 80 162/76 (110) 95 Nasal Cannula 4.00 04/19/23 10:41 36.0 36 04/19/23 02:14 26 Capillary Refill : Less Than 3 Seconds General Appearance: No Apparent Distress, WD/WN, Chronically ill Respiratory: Lungs Clear, Normal Breath Sounds Cardiovascular: Regular Rate, Rhythm Neurologic/Psychiatric: Alert, Oriented x3, No Motor/Sensory Deficits, Normal Mood/Affect Results/Procedures Lab Laboratory Tests 04/19/23 04:48 Patient resulted labs reviewed. Imaging: Reviewed Imaging Films, Reviewed Imaging Report Assessment/Plan Assessment and Plan Assess & Plan/Chief Complaint Assessment: Acute on chronic respiratory failure RLL PNA AECHF CKD Weakness DM Plan: Move to 4th Monitor closely MARY MCDUFFIE DO Apr 19, 2023 06:45
[2023-04-19] MEDS: dexAMETHasone INJ 4 MG/ML SDV IV SCH ×2 (08:02→21:11)
[2023-04-19] MEDS: DOCUSATE SODIUM 100 MG CAPSULE PO SCH ×2 (08:02→21:11)
[2023-04-19] MEDS: SENNOSIDES 8.6 MG (SENOKOT) TAB PO SCH ×2 (08:03→21:11)
[2023-04-19] MEDS ORDERED: FUROSEMIDE 40 MG/4 ML INJ (LASIX) IVP SCH (09:00)
--- NOTE | 2023-04-19 09:40 | Tele-ICU Progress Note ---
Subjective Date Seen by a Provider: Apr 19, 2023 Time Seen by a Provider: 09:39 Subjective/Events-last exam (Tele-ICU Physician , Progress note Service provided via interactive audio and video telecommunications E-CARE system to a patient admitted to ICU bed in [facility]. Available chart/ vitals / labs / Images reviewed H&P is from ER notes Patient's information available about PMH, Shx, Fhx allergy reviewed inEMR. ROS as per chart and RN report Now in ICU, hemodynamically stable Video assessment done using teleICU camera, rest of exam as per RN Discussed with RN. Hospital course: (04/18) 72M admitted with PNA, hypoxic, CKD, hyperkalemic 04/19. today he is off bipap. on 4l n/c tolerating well A/P Acute resp failure, VO /AECOPD/?PNA - On BIPAP rr 24 TV 400 MV 9L - avx, steroids , nebs , lasix - initiated AECOPD - steroids , nebs Possible pNA - abx started Chronic respiratory failure maintained on oxygen at home Chronic kidney disease stage IV managed by nephrology 04/19 creatinine increased. lasix d/cd. no evidence of chf on cxr and CT chest. will continue to monitor CR. if urine out put decreases will give ivf. Lines : periph , (Central Line Necessity Reviewed) Johnson: OG: Nutrition: Analgesia: Anxiety/ delirium VTE Prophylaxis: maxime 40 Stress Ulcer Prophylaxis: Plans in collaboration with bedside consultants and IM MDs. Discussed with RN to reach out if any questions or concerns A total of 25 minutes of critical care time was devoted to this patient today, required to treat and/or prevent further deterioration of critical care condition ( as above ) . I am remotely monitoring this patient from another state. I am unable to do the bedside exam, and history/physical and pertinent information is taken from other notes in the computer and bedside staff. . Sepsis Event Evaluation Height, Weight, BMI Height: 5'11.00" Weight: 225lbs. 0.0oz. 102.275756vl; 36.29 BMI Method:Stated Focused Exam Lactate Level 04/18/23 11:00: Lactic Acid Level 0.51 Exam Exam Patient acknowledged, consented, and participated in this virtual visit which was conducted using real time audio/video Vital Signs Date Time Temp Pulse Resp B/P (MAP) Pulse Ox O2 Delivery O2 Flow Rate FiO2 04/19/23 09:00 67 136/55 (89) 99 Nasal Cannula 4.00 04/19/23 08:15 99 Nasal Cannula 4.00 04/19/23 08:00 76 144/93 (97) 97 Nasal Cannula 4.00 04/19/23 07:56 36.0 04/19/23 07:55 Nasal Cannula 4.00 04/19/23 07:28 99 Nasal Cannula 4.00 04/19/23 07:00 67 172/72 (106) 98 NIV Bilevel 30.00 04/19/23 07:00 72 04/19/23 06:00 62 182/83 (116) 98 NIV Bilevel 30.00 04/19/23 05:00 174/66 (111) 94 NIV Bilevel 30.00 04/19/23 04:10 93 NIV Bilevel 30 04/19/23 04:00 35.7 74 174/86 (120) 96 NIV Bilevel 30.00 04/19/23 03:00 63 163/72 (112) 96 NIV Bilevel 30.00 04/19/23 02:14 74 26 92 30.00 04/19/23 02:00 72 167/80 (103) 93 NIV Bilevel 30.00 04/19/23 01:00 70 149/66 (94) 91 NIV Bilevel 30.00 04/19/23 01:00 69 04/19/23 00:00 35.7 81 20 163/72 (122) 95 NIV Bilevel 30.00 04/18/23 23:59 92 NIV Bilevel 30 04/18/23 23:00 73 96 NIV Bilevel 30.00 04/18/23 22:45 84 172/79 (119) 93 NIV Bilevel 30.00 04/18/23 22:30 89 161/86 (117) 88 NIV Bilevel 30.00 04/18/23 22:15 81 167/74 (113) 94 NIV Bilevel 30.00 04/18/23 22:00 78 164/77 (97) 91 NIV Bilevel 30.00 04/18/23 21:45 80 162/84 (108) 92 NIV Bilevel 30.00 04/18/23 21:30 78 165/76 (102) 96 NIV Bilevel 30.00 04/18/23 21:15 88 20 149/70 (104) 93 NIV Bilevel 30.00 04/18/23 21:09 76 22 94 30.00 04/18/23 21:00 74 158/70 (98) 93 NIV Bilevel 30.00 04/18/23 20:58 93 NIV Bilevel 30 04/18/23 20:45 76 152/67 (93) 94 NIV Bilevel 30.00 04/18/23 20:30 77 162/70 (104) 93 NIV Bilevel 30.00 04/18/23 20:15 71 143/63 (89) 93 NIV Bilevel 30.00 04/18/23 20:00 36.0 74 158/70 (102) 94 NIV Bilevel 30.00 04/18/23 19:00 91 04/18/23 18:47 84 95 04/18/23 18:17 NIV Bilevel 30.00 04/18/23 18:10 89 165/99 (121) 100 Nasal Cannula 5.00 04/18/23 17:00 89 190/102 (131) 100 Nasal Cannula 5.00 04/18/23 16:39 36.4 04/18/23 16:00 72 180/75 (110) 98 Nasal Cannula 5.00 04/18/23 15:06 36.9 75 95 35 04/18/23 15:00 67 185/87 (119) 93 NIV Bilevel 30.00 04/18/23 14:20 93 NIV Bilevel 30 04/18/23 14:08 73 04/18/23 13:55 72 25 95 30.00 04/18/23 13:47 36.9 65 24 173/77 100 NIV Bilevel 50.00 04/18/23 12:40 66 33 100 04/18/23 10:30 69 23 92 50.00 04/18/23 09:50 77 26 94 35.00 04/18/23 09:40 Nasal Cannula 4.00 04/18/23 09:40 36.9 87 36 180/84 (116) 100 Nasal Cannula I & O 04/19/23 07:00 Intake Total 1500 ml Output Total 1700 ml Balance -200 ml Height & Weight Height: 5'11.00" Weight: 225lbs. 0.0oz. 102.427850rh; 36.29 BMI Method:Stated General Appearance: Anxious, Chronically ill, Mild Distress HEENT: PERRL/EOMI, Normal ENT Inspection, Pharynx Normal, Moist Mucous Membranes Neck: Full Range of Motion, Normal Inspection, Non Tender Respiratory: Chest Non Tender, No Respiratory Distress, Accessory Muscle Use, Crackles (In right lower lobe), Decreased Breath Sounds (In left lung), Wheezing (In right lung) Cardiovascular: Regular Rate, Rhythm, No Edema, No Gallop, No JVD, No Murmur, Normal Peripheral Pulses Capillary Refill: Less Than 3 Seconds Gastrointestinal: non tender, soft Extremity: Normal Capillary Refill, Normal Inspection, Normal Range of Motion, Non Tender, No Calf Tenderness, No Pedal Edema Neurologic/Psychiatric: Alert, Oriented x3, No Motor/Sensory Deficits, Normal Mood/Affect Skin: Normal Color, Warm/Dry Lymphatic: No Adenopathy Results Lab Laboratory Tests 04/18/23 09:37 04/19/23 04:48 Assessment/Plan Assessment/Plan as above Critical Care: Critically Ill Patient Time spent with patient (mins): 25 EDMUNDO PALACIO MD Apr 19, 2023 09:40
[2023-04-19 10:41] VITALS: BP 142/62
--- NOTE | 2023-04-19 11:02 | Diagnostic Imaging Report ---
CHEST 1 VIEW, AP/PA ONLY Indication: Pneumonia Comparison: 04/18/2023 Findings: Bilateral heterogeneous consolidations are unchanged. No pneumothorax. Small right-sided pleural effusion is unchanged. Stable cardiac silhouette. Impression: 1. No change in bilateral multifocal consolidations. 2. Small right pleural effusion is stable. Dictated by: Dictated on workstation # [id number]
[2023-04-19] MEDS: ENOXAPARIN 40 MG/0.4 ML SYRINGE SC SCH (13:35)
--- NOTE | 2023-04-19 15:47 | Cardiology Progress Note ---
Cardiology SOAP Progress Note Subjective: Still short of breath. Objective: I&O/Vital Signs 04/19/23 04/19/23 04/19/23 04/19/23 04:00 04:10 05:00 06:00 Temp 35.7 Pulse 74 62 B/P (MAP) 174/86 (120) 174/66 (111) 182/83 (116) Pulse Ox 96 93 94 98 O2 Delivery NIV Bilevel NIV Bilevel NIV Bilevel NIV Bilevel O2 Flow Rate 30.00 30.00 30.00 FiO2 30 04/19/23 04/19/23 04/19/23 04/19/23 07:00 07:00 07:28 07:55 Pulse 72 67 B/P (MAP) 172/72 (106) Pulse Ox 98 99 O2 Delivery NIV Bilevel Nasal Cannula Nasal Cannula O2 Flow Rate 30.00 4.00 4.00 04/19/23 04/19/23 04/19/23 04/19/23 07:56 08:00 08:15 09:00 Temp 36.0 Pulse 76 67 B/P (MAP) 144/93 (97) 136/55 (89) Pulse Ox 97 99 99 O2 Delivery Nasal Cannula Nasal Cannula Nasal Cannula O2 Flow Rate 4.00 4.00 4.00 04/19/23 04/19/23 04/19/23 04/19/23 10:00 10:41 11:00 12:00 Temp 36.0 Pulse 66 66 68 80 B/P (MAP) 142/62 (96) 145/69 (102) 162/76 (110) Pulse Ox 99 98 100 95 O2 Delivery Nasal Cannula Nasal Cannula Nasal Cannula O2 Flow Rate 4.00 4.00 4.00 FiO2 36 04/19/23 04/19/23 04/19/23 12:31 12:36 13:18 Temp 36.0 36.1 Pulse 81 Resp 18 B/P (MAP) 164/70 (101) Pulse Ox 97 96 O2 Delivery Nasal Cannula Nasal Cannula O2 Flow Rate 4.00 4.00 04/19/23 00:00 Intake Total 1150 ml Output Total 1450 ml Balance -300 ml Weight (Pounds): 225 Weight (Ounces): 0.0 Weight (Calculated Kilograms): 102.733840 Constitutional: AAO x 3, apparent distress Respiratory: accessory muscle use, respiratory distress Cardiovascular: regular rate-rhythm; No diastolic murmur, No systolic murmur Gastrointestional: soft Extremities: other (Back pain) Neurologic/Psychiatric: alert, normal mood/affect, oriented x 3 Skin: normal color Results/Procedures: Labs Laboratory Tests 04/18/23 16:42: Glucometer 219H 04/18/23 21:18: Glucometer 233H 04/19/23 04:48: White Blood Count 9.0, Red Blood Count 2.77L, Hemoglobin 7.6L, Hematocrit 25L, Mean Corpuscular Volume 89, Mean Corpuscular Hemoglobin 27, Mean Corpuscular Hemoglobin Concent 31L, Red Cell Distribution Width 16.7H, Platelet Count 200, Mean Platelet Volume 11.2, Immature Granulocyte % (Auto) 0, Neutrophils (%) (Auto) 91H, Lymphocytes (%) (Auto) 4L, Monocytes (%) (Auto) 5, Eosinophils (%) (Auto) 0, Basophils (%) (Auto) 0, Neutrophils # (Auto) 8.2H, Lymphocytes # (Auto) 0.3L, Monocytes # (Auto) 0.4, Eosinophils # (Auto) 0.0, Basophils # (Auto) 0.0, Immature Granulocyte # (Auto) 0.0, Sodium Level 140, Potassium Level 4.5, Chloride Level 106, Carbon Dioxide Level 22, Anion Gap 12, Blood Urea Nitrogen 56H, Creatinine 2.20H, Estimat Glomerular Filtration Rate 31, BUN/Creatinine Ratio 25, Glucose Level 265H, Calcium Level 8.6, Corrected Calcium 9.4, Phosphorus Level 5.0H, Magnesium Level 2.0, Total Bilirubin 0.3, Aspartate Amino Transf (AST/SGOT) 14, Alanine Aminotransferase (ALT/SGPT) 23, Alkaline Phosphatase 75, Total Protein 6.2L, Albumin 3.0L, Triglycerides Level 68, Cholesterol Level 130, LDL Cholesterol Direct 66, VLDL Cholesterol 14, HDL Cholesterol 47 04/19/23 10:31: Glucometer 210H Microbiology 04/18/23 Blood Culture - Preliminary, Resulted No growth A/P: Assessment/Dx: Acute on chronic respiratory failure, Severe diabetes, CAD, PAD, COPD exacerbation/pneumonia, Acute on chronic diastolic congestive heart failure, Stage IV chronic kidney disease, Active smoking, Mildly positive troponin, Left bundle branch block Moderate to severe back pain. Plan: Acute on chronic respiratory failure, likely COPD exacerbation and pneumonia. Contribution from acute on chronic diastolic congestive heart failure. Elevated BNP. IV steroids given in the ER. Lasix in the ER. Severe diabetes, defer to the primary team. CAD, continue antiplatelet therapy. PAD, no active issues. COPD exacerbation/pneumonia, on IV antibiotics. Acute on chronic diastolic congestive heart failure, given Lasix in the ER. Hold Lasix since creatinine has gone up. Stage IV chronic kidney disease, monitor kidney function very closely. Avoid nephrotoxins. Acute on chronic kidney disease. Will recommend holding Lasix. Active smoking, patient quit smoking on . He was congratulated. Mildly positive troponin, likely type II [place] due to acute respiratory failure. However patient's last stress test was in 2020. He has a left bundle branch block. It is prudent to do stress test with nuclear imaging early next week when he is more stable from the pulmonary perspective. Left bundle branch block Moderate to severe back pain. Focused Exam Lactate Level 04/18/23 11:00: Lactic Acid Level 0.51 Demetri PALACIOS MD Apr 19, 2023 15:47
[2023-04-19 16:07] VITALS: BP 164/72
[2023-04-19] MEDS: VANCOMYCIN 1250 MG/NS 250 ML PREMIX IV SCH (17:48)
[2023-04-19 19:03] VITALS: BP 175/69
[2023-04-19 23:52] VITALS: BP 181/79
[2023-04-20] MEDS: RT-ALBUTEROL/IPRATROPIUM 3 ML (DUONEB) VIAL INH SCH ×4 (02:00→21:16)
[2023-04-20 03:51] VITALS: BP 163/71
[2023-04-20] MEDS: MEROPENEM 500 MG in NS (IVPB) 100 ML 100 ML IV SCH ×3 (04:23→20:25)
[2023-04-20] MEDS: cloNIDine 0.1 MG TABLET PO PRN ×2 (04:23→23:25)
[2023-04-20 05:49] LABS: BASOPHILS % (AUTO) 0 % (0-10); EOSINOPHILS % (AUTO) 0 % (0-10); HEMATOCRIT 25 % (40-54); HEMOGLOBIN 7.7 g/dL (13.3-17.7); LYMPHOCYTES # (AUTO) 0.5 10^3/uL (1.0-4.0); LYMPHOCYTES % (AUTO) 4 % (12-44); MEAN CORPUSCULAR HEMOGLOBIN 27 pg (25-34); MEAN CORPUSCULAR HGB CONC 31 g/dL (32-36); MEAN CORPUSCULAR VOLUME 87 fL (80-99); MEAN PLATELET VOLUME 11.4 fL (9.0-12.2); MONOCYTES # (AUTO) 0.5 10^3/uL (0.0-1.0); MONOCYTES % (AUTO) 4 % (0-12); NEUTROPHILS # (AUTO) 12.3 10^3/uL (1.8-7.8); NEUTROPHILS % (AUTO) 92 % (42-75); PLATELET COUNT 226 10^3/uL (130-400); WHITE BLOOD COUNT 13.5 10^3/uL (4.3-11.0)
[2023-04-20 06:15] LABS: BILIRUBIN,TOTAL 0.3 MG/DL (0.1-1.0); CALCIUM 8.3 MG/DL (8.5-10.1); CREATININE SERUM 2.14 MG/DL (0.60-1.30); POTASSIUM 4.9 MMOL/L (3.6-5.0); TOTAL PROTEIN 6.2 GM/DL (6.4-8.2)
[2023-04-20] MEDS: inSUlin ASPART (NovoLOG) 1 UNIT/0.01 ML (CHARGE PER UNIT) SC SCH ×4 (06:22→20:24)
[2023-04-20 07:56] VITALS: BP 175/69
[2023-04-20] MEDS: SENNOSIDES 8.6 MG (SENOKOT) TAB PO SCH ×2 (08:10→20:25)
[2023-04-20] MEDS: DOCUSATE SODIUM 100 MG CAPSULE PO SCH ×2 (08:10→20:25)
[2023-04-20] MEDS: dexAMETHasone INJ 4 MG/ML SDV IV SCH ×2 (08:10→20:24)
--- NOTE | 2023-04-20 08:15 | Progress Note ---
CHAVA MARINELLI MD 04/20/23 0815: Subjective Subjective/Events-last exam No acute events overnight. Pt complaining of continued SOB, not new from yesterday. He says he sometimes needs help from the BiPAP machine. He says his cough is still present and that he feels like he needs to cough fluid up out of his lungs but that it gets stuck often. Review of Systems General: No Chills, No Night Sweats, No Fatigue, No Malaise, No Appetite, No Other HEENT: Head Aches Pulmonary: Dyspnea, Cough, Pleuritic Chest Pain Cardiovascular: No: Chest Pain, Palpitations, Orthopnea, Paroxysmal Noc. Dyspnea, Edema, Lt Headedness, Other Gastrointestinal: No: Nausea, Vomiting, Abdominal Pain, Diarrhea, Constipation, Melena, Hematochezia, Other Musculoskeletal: No: other, neck pain, shoulder pain, arm pain, back pain, hand pain, leg pain, foot pain Neurological: No: Weakness, Numbness, Incoordination, Change in speech, Confusion, Seizures, Other Focused Exam Lactate Level 04/18/23 11:00: Lactic Acid Level 0.51 Objective Exam Last Set of Vital Signs Vital Signs Date Time Temp Pulse Resp B/P (MAP) Pulse Ox O2 Delivery O2 Flow Rate FiO2 04/20/23 07:56 36.5 74 18 175/69 (104) 95 Nasal Cannula 4.00 04/19/23 10:41 36 Capillary Refill : Less Than 3 Seconds I&O Intake and Output 04/20/23 00:00 Intake Total 1420 ml Output Total 875 ml Balance 545 ml Intake Oral 1320 ml IV Total 100 ml Output Urine Total 875 ml # Voids 2 General: Alert, Oriented X3, No Acute Distress HEENT: Atraumatic, EOMI Lungs: Other (Coarse breath sounds diffusely; rhonchi heard middle R lobe) Heart: Regular Rate, No Murmurs Abdomen: Normal Bowel Sounds, Soft Extremities: Other (Trace Bl LE edema) Skin: Other (Ecchymosis seen over BL forearms from previous lab draw attempts) Neuro: Normal Speech, Sensation Intact Psych/Mental Status: Mental Status NL, Mood NL Results/Procedures Lab Laboratory Tests 04/19/23 10:31: Glucometer 210H 04/19/23 20:11: Glucometer 153H 04/20/23 05:13: White Blood Count 13.5H, Red Blood Count 2.82L, Hemoglobin 7.7L, Hematocrit 25L, Mean Corpuscular Volume 87, Mean Corpuscular Hemoglobin 27, Mean Corpuscular Hemoglobin Concent 31L, Red Cell Distribution Width 16.6H, Platelet Count 226, Mean Platelet Volume 11.4, Immature Granulocyte % (Auto) 0, Neutrophils (%) (Auto) 92H, Lymphocytes (%) (Auto) 4L, Monocytes (%) (Auto) 4, Eosinophils (%) (Auto) 0, Basophils (%) (Auto) 0, Neutrophils # (Auto) 12.3H, Lymphocytes # (Auto) 0.5L, Monocytes # (Auto) 0.5, Eosinophils # (Auto) 0.0, Basophils # (Auto) 0.0, Immature Granulocyte # (Auto) 0.1, Sodium Level 136, Potassium Level 4.9, Chloride Level 102, Carbon Dioxide Level 25, Anion Gap 9, Blood Urea Nitrogen 68H, Creatinine 2.14H, Estimat Glomerular Filtration Rate 32, BUN/Creatinine Ratio 32, Glucose Level 345H, Calcium Level 8.3L, Corrected Calcium 9.1, Total Bilirubin 0.3, Aspartate Amino Transf (AST/SGOT) 11, Alanine Aminotransferase (ALT/SGPT) 19, Alkaline Phosphatase 69, Total Protein 6.2L, Albumin 3.0L Microbiology 04/18/23 Blood Culture - Preliminary, Resulted No growth Assessment/Plan Assessment/Plan Admission Dx COPD exacerabation 2/2 pneumonia Admission Status: Inpatient Order (span 2 midnights) Reason for Inpatient Admission: COPD exacerbation 2/2 pneumonia (1) Acute on chronic diastolic CHF (congestive heart failure) Status: Acute Assessment & Plan: PLAN: Continue to diurese as needed for fluid removal Continue home medications (2) Acute and chronic respiratory failure with hypoxia Status: Acute Assessment & Plan: - Pt on 2L O2 at home, recently he has been needing 3-4L PLAN - Supplemental O2 via NC vs BiPAP; currently on 4L O2 - Continuous pulse oximetry - Dexamethasone 4mg IV q12 - Albuterol PRN (3) Acute kidney injury superimposed on chronic kidney disease Assessment & Plan: PLAN: - Avoid kidney toxic agents - Hold diuresis for BHAVANA - Daily CMP (4) COPD exacerbation Assessment & Plan: PLAN: - Steroid treatments as above - Pneumonia treatment as below (5) Pneumonia Onset Date: ~ 09/06/2021 Status: Acute Assessment & Plan: PLAN: - Abx; meropenam and vancomycin for bacterial coverage - Daily CBC to trend WBCs - Monitor for systemic symptoms of infection Qualifiers: Qualified Codes: J18.9 - Pneumonia, unspecified organism MARY MCDUFFIE DO 04/20/23 1700: Assessment/Plan Assessment/Plan Admission Dx I performed a history and physical examination of the patient and discussed management. I reviewed the resident's note and agree with the documented f indings and plan of care. CHAVA MARINELLI MD Apr 20, 2023 08:15 MARY MCDUFFIE DO Apr 20, 2023 17:00
[2023-04-20 11:45] VITALS: BP 172/76
[2023-04-20] MEDS: ENOXAPARIN 40 MG/0.4 ML SYRINGE SC SCH (13:45)
[2023-04-20 15:30] VITALS: BP 186/78
--- NOTE | 2023-04-20 16:43 | Cardiology Progress Note ---
Cardiology SOAP Progress Note Subjective: Still has shortness of breath. However due to oxygen mask overnight he felt better in the evening. Objective: I&O/Vital Signs 04/20/23 04/20/23 04/20/23 04/20/23 07:56 08:00 08:45 11:45 Temp 36.5 36.8 Pulse 74 80 70 Resp 18 21 22 B/P (MAP) 175/69 (104) 172/76 (108) Pulse Ox 95 95 95 O2 Delivery Nasal Cannula Nasal Cannula NIV CPAP O2 Flow Rate 4.00 4.00 30.00 10.00 04/20/23 15:30 Temp 36.4 Pulse 69 Resp 16 B/P (MAP) 186/78 (114) Pulse Ox 97 O2 Delivery Nasal Cannula O2 Flow Rate 4.00 04/20/23 00:00 Intake Total 590 ml Output Total 500 ml Balance 90 ml Weight (Pounds): 225 Weight (Ounces): 0.0 Weight (Calculated Kilograms): 102.595975 Constitutional: AAO x 3, apparent distress Respiratory: accessory muscle use, respiratory distress Cardiovascular: regular rate-rhythm; No diastolic murmur, No systolic murmur Gastrointestional: soft Extremities: other (Back pain) Neurologic/Psychiatric: alert, normal mood/affect, oriented x 3 Skin: normal color Results/Procedures: Labs Laboratory Tests 04/19/23 20:11: Glucometer 153H 04/20/23 05:13: White Blood Count 13.5H, Red Blood Count 2.82L, Hemoglobin 7.7L, Hematocrit 25L, Mean Corpuscular Volume 87, Mean Corpuscular Hemoglobin 27, Mean Corpuscular Hemoglobin Concent 31L, Red Cell Distribution Width 16.6H, Platelet Count 226, Mean Platelet Volume 11.4, Immature Granulocyte % (Auto) 0, Neutrophils (%) (Auto) 92H, Lymphocytes (%) (Auto) 4L, Monocytes (%) (Auto) 4, Eosinophils (%) (Auto) 0, Basophils (%) (Auto) 0, Neutrophils # (Auto) 12.3H, Lymphocytes # (Auto) 0.5L, Monocytes # (Auto) 0.5, Eosinophils # (Auto) 0.0, Basophils # (Auto) 0.0, Immature Granulocyte # (Auto) 0.1, Sodium Level 136, Potassium Level 4.9, Chloride Level 102, Carbon Dioxide Level 25, Anion Gap 9, Blood Urea Nitrogen 68H, Creatinine 2.14H, Estimat Glomerular Filtration Rate 32, BUN/Creatinine Ratio 32, Glucose Level 345H, Calcium Level 8.3L, Corrected Calcium 9.1, Total Bilirubin 0.3, Aspartate Amino Transf (AST/SGOT) 11, Alanine Aminotransferase (ALT/SGPT) 19, Alkaline Phosphatase 69, Total Protein 6.2L, Albumin 3.0L 04/20/23 11:41: Glucometer 239H Microbiology 04/18/23 Blood Culture - Preliminary, Resulted No growth 04/18/23 MRSA Screen - Final, Complete MRSA not isolated A/P: Assessment/Dx: Acute on chronic respiratory failure, Severe diabetes, CAD, PAD, COPD exacerbation/pneumonia, Acute on chronic diastolic congestive heart failure, Stage IV chronic kidney disease, Active smoking, Mildly positive troponin, Left bundle branch block Moderate to severe back pain. Plan: Acute on chronic respiratory failure, likely COPD exacerbation and pneumonia. Contribution from acute on chronic diastolic congestive heart failure. Elevated BNP. IV steroids given in the ER. Lasix in the ER. Severe diabetes, defer to the primary team. CAD, continue antiplatelet therapy. PAD, no active issues. COPD exacerbation/pneumonia, on IV antibiotics. Acute on chronic diastolic congestive heart failure, given Lasix in the ER. Hol d Lasix since creatinine has gone up. Stage IV chronic kidney disease, monitor kidney function very closely. Avoid n ephrotoxins. Acute on chronic kidney disease. Continue holding Lasix Active smoking, patient quit smoking on . He was congratulated. Mildly positive troponin, likely type II [place] due to acute respiratory failure. However patient's last stress test was in 2020. He has a left bundle branch block. It is prudent to do stress test with nuclear imaging early next week when he is more stable from the pulmonary perspective. Left bundle branch block Moderate to severe back pain. Dr. Pizarro to take over cardiology service tomorrow. Focused Exam Lactate Level 04/18/23 11:00: Lactic Acid Level 0.51 Demetri PALACIOS MD Apr 20, 2023 16:43
[2023-04-20] MEDS: VANCOMYCIN 1250 MG/NS 250 ML PREMIX IV SCH (17:10)
[2023-04-20 19:10] VITALS: BP 178/74
[2023-04-20 23:20] VITALS: BP 191/85
[2023-04-21] VITALS (7 sets, daily range): BP systolic 128–207; BP diastolic 55–87
[2023-04-21] MEDS ORDERED: amLODIPine 5 MG TABLET PO ONE (00:45)
[2023-04-21] MEDS: RT-ALBUTEROL/IPRATROPIUM 3 ML (DUONEB) VIAL INH SCH ×4 (03:50→20:07)
[2023-04-21] MEDS: inSUlin ASPART (NovoLOG) 1 UNIT/0.01 ML (CHARGE PER UNIT) SC SCH ×4 (05:39→21:13)
[2023-04-21] MEDS: MEROPENEM 500 MG in NS (IVPB) 100 ML 100 ML IV SCH ×3 (05:39→20:14)
[2023-04-21 06:01] LABS: BASOPHILS % (AUTO) 0 % (0-10); EOSINOPHILS % (AUTO) 0 % (0-10); HEMATOCRIT 24 % (40-54); HEMOGLOBIN 7.5 g/dL (13.3-17.7); LYMPHOCYTES # (AUTO) 0.7 10^3/uL (1.0-4.0); LYMPHOCYTES % (AUTO) 6 % (12-44); MEAN CORPUSCULAR HEMOGLOBIN 27 pg (25-34); MEAN CORPUSCULAR HGB CONC 31 g/dL (32-36); MEAN CORPUSCULAR VOLUME 87 fL (80-99); MEAN PLATELET VOLUME 11.1 fL (9.0-12.2); MONOCYTES # (AUTO) 0.6 10^3/uL (0.0-1.0); MONOCYTES % (AUTO) 5 % (0-12); NEUTROPHILS # (AUTO) 9.7 10^3/uL (1.8-7.8); NEUTROPHILS % (AUTO) 88 % (42-75); PLATELET COUNT 224 10^3/uL (130-400)
[2023-04-21] MEDS ORDERED: NITROGLYCERIN 0.4 MG SL TABS BTL 25'S SL PRN (06:15)
[2023-04-21 06:18] LABS: ALBUMIN 2.7 GM/DL (3.2-4.5); BILIRUBIN,TOTAL 0.2 MG/DL (0.1-1.0); CALCIUM 8.3 MG/DL (8.5-10.1); CREATININE SERUM 2.18 MG/DL (0.60-1.30); POTASSIUM 4.8 MMOL/L (3.6-5.0); TOTAL PROTEIN 5.7 GM/DL (6.4-8.2)
[2023-04-21] MEDS ORDERED: ALOGLIPTIN BENZOATE 6.25 MG PO SCH (09:00)
[2023-04-21] MEDS: FOLIC ACID 1 MG TAB PO SCH (09:25)
[2023-04-21] MEDS: SENNOSIDES 8.6 MG (SENOKOT) TAB PO SCH ×2 (09:25→20:14)
[2023-04-21] MEDS: carvediloL 12.5 MG TABLET PO SCH ×2 (09:25→16:59)
[2023-04-21] MEDS: CYANOCOBALAMIN 1,000 MCG TABLET PO SCH (09:25)
[2023-04-21] MEDS: FUROSEMIDE 20 MG (LASIX) TAB PO SCH (09:25)
[2023-04-21] MEDS: ASPIRIN enteric coated 81MG TABLET PO SCH (09:25)
[2023-04-21] MEDS: DOCUSATE SODIUM 100 MG CAPSULE PO SCH ×2 (09:25→20:14)
[2023-04-21] MEDS: dexAMETHasone INJ 4 MG/ML SDV IV SCH ×2 (09:26→20:14)
[2023-04-21] MEDS: CLOPIDOGREL 75 MG TABLET PO SCH (09:26)
[2023-04-21] MEDS: amLODIPine 5 MG TABLET PO SCH (09:26)
[2023-04-21] MEDS: PANTOPRAZOLE 40 MG (PROTONIX) TAB PO SCH (09:26)
[2023-04-21] MEDS: TIOTROPIUM INH 4 GM (SPIRIVA Respimat) IH SCH (09:35)
[2023-04-21] MEDS: FLUTICASONE/VILANTEROL 200 MCG 14'S (BREO) IH SCH (09:35)
[2023-04-21] MEDS: FLUTICASONE NASAL SPRAY (FLONASE) 16 GM BTL NS SCH (09:40)
--- NOTE | 2023-04-21 09:53 | Cardiology Progress Note ---
Subjective Date Seen by Provider: Apr 21, 2023 Time Seen by Provider: 08:50 Subjective/Events-last exam Patient is sitting up at bedside, denies any chest pain. States dyspnea is improving. Focused Exam Lactate Level Objective-Cardiology Exam Last Set of Vital Signs Vital Signs 04/20/23 04/21/23 20:27 11:25 Temp 36.2 Pulse 64 Resp 18 B/P (MAP) 128/55 (79) Pulse Ox 98 O2 Delivery Nasal Cannula O2 Flow Rate 4.00 FiO2 30 I&O Intake and Output 04/20/23 23:59 Intake Total 1940 ml Output Total 1900 ml Balance 40 ml Intake Oral 1840 ml IV Total 100 ml Output Urine Total 1900 ml # Voids 2 General: Alert, Oriented X3, No Acute Distress HEENT: Atraumatic, EOMI Lungs: Other (Coarse breath sounds diffusely; rhonchi heard middle R lobe) Heart: Regular Rate, No Murmurs Abdomen: Normal Bowel Sounds, Soft Extremities: Other (Trace Bl LE edema) Skin: Other (Ecchymosis seen over BL forearms from previous lab draw attempts) Neuro: Normal Speech, Sensation Intact Psych/Mental Status: Mental Status NL, Mood NL Results Lab Laboratory Tests 04/21/23 05:30 A/P-Cardiology Admission Diagnosis Acute on chronic respiratory failure AE COPD CAD PAD Assessment/Plan Acute on chronic respiratory failure, likely COPD exacerbation and pneumonia. Contribution from acute on chronic diastolic congestive heart failure. Elevated BNP. IV steroids given in the ER. Lasix in the ER. DM, management per medical services. CAD, continue antiplatelet therapy. PAD, no active issues. Acute on chronic diastolic congestive heart failure, given Lasix in the ER. Hold Lasix since creatinine has gone up. Stage IV chronic kidney disease, monitor kidney function very closely. Avoid nephrotoxins. Acute on chronic kidney disease. Continue holding Lasix Extobaccoism, patient recently quit smoking. Encourage to continue with smoking cessation. Mildly positive troponin, likely type II [place] due to acute respiratory failure. However patient's last stress test was in 2020. He has a left bundle branch blo ck. It is prudent to do stress test with nuclear imaging early next week when he is more stable from the pulmonary perspective. Left bundle branch block Moderate to severe back pain. Supervisory-Addendum Brief Supervisory Addendum Participated in pt care: history, MDM, physical Personally performed: exam, history, MDM Care discussed with: TON Results interpretation: Verified all documentation Notes: Patient was seen and evaluated with Roger, examination performed, management plan was discussed, agree with the current scribed note, I made few changes to the note using Italic font Patient was seen at bedside, feeling better, breathing better Has a LifeVest at this point We discussed long-term treatment option, monitoring heart rate and blood pressure closely, monitoring electrolyte Continue on current medications ROGER GRANT Apr 21, 2023 09:53 FADUMO TALAVERA MD Apr 21, 2023 14:51
--- NOTE | 2023-04-21 10:51 | Occupational Therapy Eval ---
OT Evaluation-General/PLF Medical Diagnosis Admission Date Apr 18, 2023 at 14:01 Medical Diagnosis: right lower lobe pneumonia. Onset Date: Apr 18, 2023 Therapy Diagnosis Therapy Diagnosis: weakness Height/Weight Height (Feet): 5 Height (Inches): 11.00 Weight (Pounds): 225 Weight (Ounces): 0.0 Precautions Precautions/Isolations: Fall Prevention, Standard Precautions Referral Referral Reason: Self Care, Evaluation/Treatment Medical History Additional Medical History 72 yo M with a past medical history of COPD, CHF, kidney failure, type II diabetes, chronic anticoagulation, and multiple myocardial infarctions requiring stent placement who is admitted for right lower lobe pneumonia. Reviewed History: Yes Social History Home: Apartment Current Living Status: Significant Other Entry Into Home: Level Entry Steps Into Home: 0 ADL-Prior Level of Function SCALE: Activities may be completed with or without assistive devices. 4-Lcdmhvueav-tuqrstu completes the activity by him/herself with no assistance from a helper. 5-Set-up or Clean-up Assistance-helper sets up or cleans up; patient completes activity. Ledger assists only prior to or following the activity. 4-Supervision or Touching Assistance-helper provides verbal cues and/or touching/steadying and/or contact guard assistance as patient completes activity. Assistance may be provided throughout the activity or intermittently. 3-Partial/Moderate Assistance-helper does LESS THAN HALF the effort. Ledger lifts, holds or supports trunk or limbs, but provides less than half the effort. 2-Substantial/Maximal Assistance-helper does MORE THAN HALF the effort. Ledger lifts or holds trunk or limbs and provides more than half the effort. 8-Wcaszpink-yymnuq does ALL the effort. Patient does none of the effort to complete the activity. Or, the assistance of 2 or more helpers is required for the patient to complete the activity. If activity was not attempted, code reason: 7-Patient Refused. 9-Not Applicable-not attempted and the patient did not perform the activity before the current illness, exacerbation or injury. 10-Not Attempted due to Environmental Limitations-(lack of equipment, weather restraints, etc.). 88-Not Attempted due to Medical Conditions or Safety Concerns. Self Care: Needed Some Help (assist w/ LB and UB ADLS) Functional Cognition: Independent DME/Equipment: Bath Chair, Shower DME/Equipment Comments 4ww/seat/brakes Drive Self: No OT Current Status Subjective Agreeable to OT, very talkative and shares personal information Mental Status/Objective Patient Orientation: Person, Place, Time, Situation Current Upper Extremity ROM WFLS BUE Upper Extremity Coordination INTACT Upper Extremity Strength -4/5 BUEs grossly ADL-Treatment ADL-Current Has assistance w/ UB/LB dressing and bathing PLOF Eating (QC): 6 Oral Hygiene (QC): 5 Shower/Bathe Self (QC): 7 Upper Body Dressing (QC): 4 Lower Body Dressing (QC): 3 On/Off Footwear (QC): 3 Toileting Hygiene (QC): 7 Education OT Patient Education: Exercise program, Modified ADL techniques, Progress toward Goal/Update tx plan, Purpose of tx/functional activities, Reviewed precautions, Rehab process, Safety issues, Transfer techniques Teaching Recipient: Patient Teaching Methods: Demonstration, Discussion Response to Teaching: Reinforcement Needed OT Snf Goals 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 2=Patient will verbalize/demonstrate understanding of assistive devices/modifications for ADL. 3=Patient will improve strength/tolerance for activity to enable patient to perform ADL's. OT Education/Plan Problem List/Assessment Assessment: Decreased Activ Tolerance, Decreased UE Strength, Impaired Self-Car e Skills Discharge Recommendations Plan/Recommendations: Continue POC Treatment Plan/Plan of Care Treatment,Training & Education: Yes Patient would benefit from OT for education, treatment and training to promote independence in ADL's, mobility, safety and/or upper extremity function for ADL's. Plan of Care: ADL Retraining, Concurrent Therapy, Functional Mobility, Group Exercise/Act as Ind, UE Funct Exercise/Act Treatment Duration: Apr 25, 2023 Frequency: 3 times per week (3-5 times per week) Estimated Hrs Per Day: .25 hour per day Agreement: Yes Rehab Potential: Fair Time Start Time: 10:50 Stop Time: 11:05 DATE: Apr 21, 2023 Total Time Billed (hr/min): 15 Billed Treatment Time EVM 15 min BETSEY GARCIA OT Apr 21, 2023 10:51
[2023-04-21] MEDS ORDERED: PATIENT MAY USE OWN MED,SINGLE MED PO SCH (11:30)
--- NOTE | 2023-04-21 11:59 | Physical Therapy Evaluation ---
PT Evaluation-General Medical Diagnosis Admission Date Apr 18, 2023 at 14:01 Medical Diagnosis: right lower lobe pneumonia. Onset Date: Apr 18, 2023 Therapy Diagnosis Therapy Diagnosis: Gait Deficit, strength deficit Height/Weight Height (Feet): 5 Height (Inches): 11.00 Weight (Pounds): 225 Weight (Ounces): 0.0 Precautions Precautions/Isolations: Fall Prevention, Standard Precautions Weight Bear Status Right Lower Extremity: Right Full Weight Bearing Left Lower Extremity: Left Full Weight Bearing Referral Physician: Dr. Sabillon Reason for Referral: Evaluation/Treatment Medical History Reviewed History: Yes Social History Home: Apartment Current Living Status: Significant Other Entry Into Home: Level Entry PT Steps Into Home: 0 Prior Prior Level of Function SCALE: Activities may be completed with or without assistive devices. 6-Dscmbncqmi-wkswast completes the activity by him/herself with no assistance from a helper. 5-Set-up or Clean-up Assistance-helper sets up or cleans up; patient completes activity. Lewis assists only prior to or following the activity. 4-Supervision or Touching Assistance-helper provides verbal cues and/or touching/steadying and/or contact guard assistance as patient completes activity. Assistance may be provided throughout the activity or intermittently. 3-Partial/Moderate Assistance-helper does LESS THAN HALF the effort. Lewis lifts, holds or supports trunk or limbs, but provides less than half the effort. 2-Substantial/Maximal Assistance-helper does MORE THAN HALF the effort. Lewis lifts or holds trunk or limbs and provides more than half the effort. 5-Zhjmpeqcz-tebzoz does ALL the effort. Patient does none of the effort to complete the activity. Or, the assistance of 2 or more helpers is required for the patient to complete the activity. If activity was not attempted, code reason: 7-Patient Refused. 9-Not Applicable-not attempted and the patient did not perform the activity before the current illness, exacerbation or injury. 10-Not Attempted due to Environmental Limitations-(lack of equipment, weather restraints, etc.). 88-Not Attempted due to Medical Conditions or Safety Concerns. Bed Mobility: 6 Transfers (B,C,W/C): 6 Gait: 6 Stairs: 9 Wheelchair Mobility: 9 Indoor Mobility (Ambulation): Independent Stairs: Not Applicalbe Prior Device Use: Cane PT Evaluation-Current Subjective Patient sitting upright in bed upon PT arrival, agreeable to treatment. Rates pain at 0/10 currently. Reports he had severe eyesight deterioration and has not driven for years. Patient reports he was able to ambulate premorbid status, but only short distances around the house. Objective Patient Orientation: Person, Place, Time, Situation Attachments: Oxygen, IV ROM/Strength ROM Lower Extremities WFLs BLEs all planes Strength Lower Extremities 3+/5 BLEs all planes Sensory Vision: Wears Glasses Hearing: Functional Sensation Right Lower Extremit: Intact Sensation Left Lower Extremity: Intact Transfers Roll Left to Right (QC): 4 Sit to Lying (QC): 4 Lying to Sitting/Side of Bed(Q: 3 Sit to Stand (QC): 2 Chair/Oyd-xa-Vpesq Xfer(QC): 3 Gait Does the Patient Walk?: Yes Mode of Locomotion: Walk Anticipated Mode of Locomotion: Walk Walk 10 feet (QC): 3 Distance: 20' Gait Assistive Device: FWW Balance Sitting Static: Good Sitting Dynamic: Good Standing Static: Fair Standing Dynamic: Poor Assessment/Needs Patient performs all bed mobility and transfers with max to min A. Patient ambulates 20 feet with FWW, with Min A and verbal cues for safety, progression and posture. Patient in chair post treatment with all needs met, nursing notified, call light in hand. Rehab Potential: Fair PT Scholastic Aptitude Test Grader Goals Scholastic Aptitude Test Grader Goals PT Half-Way Goals Time Frame: May 24, 2023 Roll Left & Right (QC): 6 Sit to Lying (QC): 6 Lying-Sitting on Side/Bed(QC): 6 Sit to Stand (QC): 6 Chair/Pyb-md-Cslrx Xfer(QC): 6 Toilet Transfer (QC): 6 Does the Patient Walk: Yes Walk 10 feet (QC): 6 Walk 50ft with 2 Turns (QC): 4 Walk 150 ft (QC): 4 PT Plan Problem List Problem List: Activity Tolerance, Functional Strength, Safety, Balance, Gait, Transfer, Bed Mobility, ROM Treatment/Plan Treatment Plan: Continue Plan of Care Treatment Plan: Bed Mobility, Education, Functional Activity González, Functional Strength, Group Therapy, Gait, Safety, Therapeutic Exercise, Transfers Treatment Duration: May 29, 2023 Frequency: 6 times per week Estimated Hrs Per Day: .25 hour per day Patient and/or Family Agrees t: Yes Safety Risks/Education Patient Education: Gait Training, Transfer Techniques Teaching Recipient: Patient Teaching Methods: Demonstration, Discussion Response to Teaching: Verbalize Understanding, Return Demonstration Time Time In: 1016 Time Out: 1030 DATE: Apr 21, 2023 Total Billed Treatment Time: 14 Total Billed Treatment Visit, LISA YADAV PT Apr 21, 2023 11:59
--- NOTE | 2023-04-21 12:07 | Progress Note ---
CAMERON NORMAN 04/21/23 1207: Subjective Date Seen by a Provider: Apr 21, 2023 Time Seen by a Provider: 08:00 Subjective/Events-last exam Our patient is a 72 yo M who was admitted for right lower lobe pneumonia. He states that he is feeling good this morning and that his breathing is improved. He has a cough that is non-productive but feels like he has quite a bit of mucous in his airway. He denies nausea or vomiting, constipation or diarrhea. He still feels the need to use a bipap at night. He reports urinary frequency without burning. Hospital Course: Our patient is a 72 yo M with a past medical history of COPD, CHF, kidney failure, type II diabetes, chronic anticoagulation, and multiple myocardial infarctions requiring stent placement who was admitted for right lower lobe pneumonia. Upon initial arrival to the ER he wasplaced on high-flow oxygen and and an initial chest x-ray and CT confirmed a pneumonia diagnosis. He was given furosemide and started on meropenem and vancomycin and has remained on these antibiotics for the length of his stay. Shortly after admission he was moved to the ICU and placed on bipap for respiratory support. Although his weakness persisted, his breathing and oxygen saturation continued to improve and he was taken off bipap in favor of supplemental oxygen via nasal cannula. Once stable he was moved to general admissions for further management. Due to worsening kidney function, cardiology recommended stopping his lasix and plans to perform a stress test once the patient's pulmonary condition improves. His lung condition has continued to improve throughout his stay and the decision was made to transfer him to rehab for strengthening prior to discharge. Review of Systems General: No Chills, No Night Sweats, No Malaise HEENT: No Head Aches, No Visual Changes Pulmonary: Dyspnea, Cough Cardiovascular: Edema; No: Chest Pain, Palpitations Gastrointestinal: No: Nausea, Vomiting Genitourinary: No Dysuria; Frequency Musculoskeletal: leg pain (bilateral knees due to recent fall and arthritic changes) Neurological: Weakness; No: Numbness, Change in speech, Confusion Objective Exam Last Set of Vital Signs Vital Signs Date Time Temp Pulse Resp B/P (MAP) Pulse Ox O2 Delivery O2 Flow Rate FiO2 04/21/23 11:25 36.2 64 18 128/55 (79) 98 Nasal Cannula 4.00 04/20/23 20:27 30 Capillary Refill : Less Than 3 Seconds I&O Intake and Output 04/20/23 23:59 Intake Total 1940 ml Output Total 1900 ml Balance 40 ml Intake Oral 1840 ml IV Total 100 ml Output Urine Total 1900 ml # Voids 2 General: Alert, Oriented X3, No Acute Distress HEENT: Atraumatic, PERRLA, EOMI Neck: Supple, No JVD, No Thyromegaly, +2 Carotid Pulse No Bruit Lungs: Other (Lung condition is improved but coarse crackles can still be heard in the right lower lung) Heart: Regular Rate, Normal S1, Normal S2, No Murmurs Abdomen: Normal Bowel Sounds, Soft, No Tenderness Extremities: No Clubbing, No Cyanosis, No Edema, Normal Pulses Skin: No Rashes, No Breakdown Neuro: Normal Speech, Normal Tone, Sensation Intact Psych/Mental Status: Mental Status NL, Mood NL Results Lab Laboratory Tests 04/20/23 20:17: Glucometer 176H 04/21/23 05:30: White Blood Count 11.0, Red Blood Count 2.76L, Hemoglobin 7.5L, Hematocrit 24L, Mean Corpuscular Volume 87, Mean Corpuscular Hemoglobin 27, Mean Corpuscular Hemoglobin Concent 31L, Red Cell Distribution Width 16.5H, Platelet Count 224, Mean Platelet Volume 11.1, Immature Granulocyte % (Auto) 0, Neutrophils (%) (Auto) 88H, Lymphocytes (%) (Auto) 6L, Monocytes (%) (Auto) 5, Eosinophils (%) (Auto) 0, Basophils (%) (Auto) 0, Neutrophils # (Auto) 9.7H, Lymphocytes # (Auto) 0.7L, Monocytes # (Auto) 0.6, Eosinophils # (Auto) 0.0, Basophils # (Auto) 0.0, Immature Granulocyte # (Auto) 0.0, Sodium Level 137, Potassium Level 4.8, Chloride Level 105, Carbon Dioxide Level 23, Anion Gap 9, Blood Urea Nitrogen 66H, Creatinine 2.18H, Estimat Glomerular Filtration Rate 32, BUN/Creatinine Ratio 30, Glucose Level 282H, Calcium Level 8.3L, Corrected Calcium 9.3, Total Bilirubin 0.2, Aspartate Amino Transf (AST/SGOT) 10, Alanine Aminotransferase (ALT/SGPT) 16, Alkaline Phosphatase 61, Total Protein 5.7L, Albumin 2.7L 04/21/23 05:35: Glucometer 286H 04/21/23 10:53: Glucometer 228H Microbiology 04/18/23 Blood Culture - Preliminary, Resulted No growth 04/18/23 MRSA Screen - Final, Complete MRSA not isolated Meds As indicated in medications list Radiology No additional imaging studies conducted Assessment/Plan Assessment/Plan Assess & Plan/Chief Complaint Right Lower Lobe Pneumonia of unknown etiology - improved Hypercapnic Respiratory Failure COPD exacerbation -Condition continues to improve -Continue treatment with meropenem and vancomycin -Monitor vancomycin levels for effectiveness and toxicity -Continue dexamethasone 4 mg Q12 HR IV for pneumonia and COPD exacerbation -Continue tiotropium, fluticasone, and albuterol -Continue oxygen supplementation as needed -Continue Bipap therapy at night Chronic kidney disease -BUN and creatinine were elevated at admission with an eGFR of 40 -Kidney function has declined since admission, cardiology recommends holding furosemide for the time being CHF -Initial BNP was 377.3 with bilateral, 1+ pitting edema of the shins -Continue daily exams to assess fluid status, hold furosemide to prevent further kidney injury Hyperkalemia - resolved -Initial potassium was increased at 5.5 -Levels have since returned to acceptable levels -Carefully monitor with daily chemistries Type II diabetes (insulin dependant) -Administered steroids will likely exacerbate condition. -Sliding scale insulin with Novolog -Novolin 10 units as needed -Continue to monitor with accuchecks and serial chemistries Normocytic Anemia -Initial Hgb was 8.3, this likely of chronic disease -Hgb has decreased somewhat since admission, this is likely dilutional -Continue to monitor with serial CBCs Bowel regimen available as needed for constipation DVT prophylaxis: lovenox 40 mg Diet: low sodium Disposition: transfer to inpatient rehab CT MCDUFFIE DO 04/21/230: Supervisory-Addendum Brief Verification & Attestation Participated in pt care: history, MDM, physical Personally performed: exam, history, MDM, supervision of care Care discussed with: Medical Student Procedures: n/a Results interpretation: Verified all documentation Verification and Attestation of Medical Student E/M Service A medical student performed and documented this service in my presence. I reviewed and verified all information documented by the medical student and made modifications to such information, when appropriate. I personally performed the physical exam and medical decision making. Ct Mcduffie, Apr 21, 2023,21:30 CAMERON NORMAN Apr 21, 2023 12:07 CT MCDUFFIE DO Apr 21, 2023 21:30
[2023-04-21] MEDS: ENOXAPARIN 40 MG/0.4 ML SYRINGE SC SCH (13:25)
[2023-04-21] MEDS: ALOGLIPTIN 6.25 MG PO SCH (13:26)
[2023-04-21] MEDS: MONTELUKAST 10 MG (SINGULAIR) TAB PO SCH (16:59)
[2023-04-21] MEDS: TAMSULOSIN 0.4 MG (FLOMAX) CAP PO SCH (16:59)
[2023-04-21] MEDS ORDERED: TROUGH ORDER-PHARMACY XX ONE (17:00)
[2023-04-21] MEDS: VANCOMYCIN 1250 MG/NS 250 ML PREMIX IV SCH (18:37)
[2023-04-21] MEDS ORDERED: cloNIDine 0.1 MG TABLET PO SCH (21:00)
[2023-04-22] MEDS: RT-ALBUTEROL/IPRATROPIUM 3 ML (DUONEB) VIAL INH SCH ×4 (02:48→21:17)
[2023-04-22 03:26] VITALS: BP 180/80
[2023-04-22] MEDS: MEROPENEM 500 MG in NS (IVPB) 100 ML 100 ML IV SCH ×3 (04:19→20:20)
[2023-04-22] MEDS: inSUlin ASPART (NovoLOG) 1 UNIT/0.01 ML (CHARGE PER UNIT) SC SCH ×4 (05:51→20:21)
[2023-04-22] MEDS: PANTOPRAZOLE 40 MG (PROTONIX) TAB PO SCH (05:51)
[2023-04-22 06:05] LABS: BASOPHILS % (AUTO) 0 % (0-10); EOSINOPHILS % (AUTO) 0 % (0-10); HEMATOCRIT 26 % (40-54); HEMOGLOBIN 8.2 g/dL (13.3-17.7); LYMPHOCYTES # (AUTO) 0.6 10^3/uL (1.0-4.0); LYMPHOCYTES % (AUTO) 5 % (12-44); MEAN CORPUSCULAR HEMOGLOBIN 27 pg (25-34); MEAN CORPUSCULAR HGB CONC 32 g/dL (32-36); MEAN CORPUSCULAR VOLUME 87 fL (80-99); MEAN PLATELET VOLUME 10.6 fL (9.0-12.2); MONOCYTES # (AUTO) 0.5 10^3/uL (0.0-1.0); MONOCYTES % (AUTO) 4 % (0-12); NEUTROPHILS # (AUTO) 11.1 10^3/uL (1.8-7.8); NEUTROPHILS % (AUTO) 90 % (42-75); PLATELET COUNT 231 10^3/uL (130-400); WHITE BLOOD COUNT 12.3 10^3/uL (4.3-11.0)
[2023-04-22 06:31] LABS: BILIRUBIN,TOTAL 0.3 MG/DL (0.1-1.0); CALCIUM 8.5 MG/DL (8.5-10.1); CREATININE SERUM 2.11 MG/DL (0.60-1.30)
[2023-04-22 07:20] VITALS: BP 188/79
--- NOTE | 2023-04-22 08:58 | Cardiology Progress Note ---
Subjective Date Seen by Provider: Apr 22, 2023 Time Seen by Provider: 08:30 Subjective/Events-last exam Patient in bed, no new complaints, denies any chest pain or dyspnea. Objective-Cardiology Exam Last Set of Vital Signs Vital Signs 04/20/23 04/22/23 04/22/23 20:27 07:20 09:33 Temp 36.8 Pulse 62 Resp 18 B/P (MAP) 188/79 (115) Pulse Ox 97 O2 Delivery Nasal Cannula O2 Flow Rate 4.00 FiO2 30 I&O Intake and Output 04/22/23 00:00 Intake Total 3080 ml Output Total 3900 ml Balance -820 ml Intake Oral 2880 ml IV Total 200 ml Output Urine Total 3900 ml General: Alert, Oriented X3, No Acute Distress HEENT: Atraumatic, PERRLA, EOMI Neck: Supple, No JVD, No Thyromegaly, +2 Carotid Pulse No Bruit Lungs: Other (Lung condition is improved but coarse crackles can still be heard in the right lower lung) Heart: Regular Rate, Normal S1, Normal S2, No Murmurs Abdomen: Normal Bowel Sounds, Soft, No Tenderness Extremities: No Clubbing, No Cyanosis, No Edema, Normal Pulses Skin: No Rashes, No Breakdown Neuro: Normal Speech, Normal Tone, Sensation Intact Psych/Mental Status: Mental Status NL, Mood NL Results Lab Laboratory Tests 04/22/23 05:37 A/P-Cardiology Admission Diagnosis Acute on chronic respiratory failure AE COPD CAD PAD Assessment/Plan Acute on chronic respiratory failure, likely COPD exacerbation and pneumonia. Contribution from acute on chronic diastolic congestive heart failure. Elevated BNP. IV steroids given in the ER. Lasix in the ER. Hypertension, poor control I will increase clonidine to 0.1 mg 3 times daily Continue all other medication monitor blood pressure DM, management per medical services. CAD, continue antiplatelet therapy. PAD, no active issues. Acute on chronic diastolic congestive heart failure, given Lasix in the ER. Continue on current medications and continue to monitor. Stage IV chronic kidney disease, monitor kidney function very closely. Avoid nephrotoxins. Continue to monitor. Ex tobaccoism, patient recently quit smoking. Encourage to continue with smoking cessation. Mildly positive troponin, likely type II [place] due to acute respiratory failure. However patient's last stress test was in 2020. He has a left bundle branch block. Will plan for stress test as an outpatient. Left bundle branch block Moderate to severe back pain. Supervisory-Addendum Brief Supervisory Addendum Participated in pt care: history, MDM, physical Personally performed: exam, history, MDM Care discussed with: TON Results interpretation: Verified all documentation Notes: Patient was seen and evaluated with Roger, examination performed, management plan was discussed, agree with the current scribed note, I made few changes to the note using Italic font Patient was seen at bedside, he was laying down comfortably, feeling better Blood pressure is poorly controlled After reviewing his medication I decided to increase clonidine to 0.1 mg 3 times daily Monitor blood pressure. Continue current medication ROGER GRANT Apr 22, 2023 08:58 FADUMO TALAVERA MD Apr 22, 2023 10:49
[2023-04-22] MEDS: FLUTICASONE/VILANTEROL 200 MCG 14'S (BREO) IH SCH (09:14)
[2023-04-22] MEDS: TIOTROPIUM INH 4 GM (SPIRIVA Respimat) IH SCH (09:14)
[2023-04-22] MEDS: dexAMETHasone INJ 4 MG/ML SDV IV SCH (09:25)
[2023-04-22] MEDS: amLODIPine 5 MG TABLET PO SCH (09:27)
[2023-04-22] MEDS: ASPIRIN enteric coated 81MG TABLET PO SCH (09:27)
[2023-04-22] MEDS: carvediloL 12.5 MG TABLET PO SCH ×2 (09:27→17:08)
[2023-04-22] MEDS: FOLIC ACID 1 MG TAB PO SCH (09:28)
[2023-04-22] MEDS: CLOPIDOGREL 75 MG TABLET PO SCH (09:28)
[2023-04-22] MEDS: SENNOSIDES 8.6 MG (SENOKOT) TAB PO SCH ×2 (09:28→20:21)
[2023-04-22] MEDS: DOCUSATE SODIUM 100 MG CAPSULE PO SCH ×2 (09:28→20:21)
[2023-04-22] MEDS: CYANOCOBALAMIN 1,000 MCG TABLET PO SCH (09:28)
[2023-04-22] MEDS: FUROSEMIDE 20 MG (LASIX) TAB PO SCH (09:28)
[2023-04-22] MEDS: cloNIDine 0.1 MG TABLET PO SCH ×3 (09:28→20:21)
[2023-04-22] MEDS: ALOGLIPTIN 6.25 MG PO SCH (09:29)
[2023-04-22] MEDS: FLUTICASONE NASAL SPRAY (FLONASE) 16 GM BTL NS SCH (09:29)
[2023-04-22] MEDS ORDERED: predniSONE 20 MG TAB PO SCH (10:15)
--- NOTE | 2023-04-22 10:56 | Occupational Ther Daily Note ---
OT Current Status-Daily Note Subjective On arrival patient is BM incont in bed, OT assisted w/ preparation for hygiene care and garment changes, hospital gown is extra large and patient prefers his own clothing at end of session Mental Status/Objective Patient Orientation: Person, Place, Time, Situation ADL-Treatment Requires assistance w/ transfer from bed ot stand Min assist, standing to toilet Min Assist, toilet to stand Min assist , stand to recliner SBA, VCs for safety use of FWW for all mobility Requires assistance to thoroughly cleanse following BM on toilet, assistance for transfer for LB dressing and pulling pants from feet to knees Therapy Code Descriptions/Definitions Functional [place] Measure: 0=Not Assessed/NA 4=Minimal Assistance 1=Total Assistance 5=Supervision or Setup 2=Maximal Assistance 6=Modified [place] 3=Moderate Assistance 7=Complete IndependenceSCALE: Activities may be completed with or without assistive devices. 5-Jddnoybbtv-bicnnxx completes the activity by him/herself with no assistance from a helper. 5-Set-up or Clean-up Assistance-helper sets up or cleans up; patient completes activity. [place] assists only prior to or following the activity. 4-Supervision or Touching Assistance-helper provides verbal cues and/or touching/steadying and/or contact guard assistance as patient completes activity. Assistance may be provided throughout the activity or intermittently. 3-Partial/Moderate Assistance-helper does LESS THAN HALF the effort. [place] lifts, holds or supports trunk or limbs, but provides less than half the effort. 2-Substantial/Maximal Assistance-helper does MORE THAN HALF the effort. [place] lifts or holds trunk or limbs and provides more than half the effort. 5-Ioyooqxlo-gnauhj does ALL the effort. Patient does none of the effort to complete the activity. Or, the assistance of 2 or more helpers is required for the patient to complete the activity. If activity was not attempted, code reason: 7-Patient Refused. 9-Not Applicable-not attempted and the patient did not perform the activity before the current illness, exacerbation or injury. 10-Not Attempted due to Environmental Limitations-(lack of equipment, weather restraints, etc.). 88-Not Attempted due to Medical Conditions or Safety Concerns. 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 2=Patient will verbalize/demonstrate understanding of assistive devices/modifications for ADL. 3=Patient will improve strength/tolerance for activity to enable patient to perform ADL's. OT Education/Plan Problem List/Assessment Assessment: Decreased Activ Tolerance, Impaired Funct Balance, Impaired Self- Care Skills Discharge Recommendations Plan/Recommendations: Continue POC Treatment Plan/Plan of Care Treatment,Training & Education: Yes Patient would benefit from OT for education, treatment and training to promote independence in ADL's, mobility, safety and/or upper extremity function for ADL's. Plan of Care: ADL Retraining, Concurrent Therapy, Functional Mobility, Group Exercise/Act as Ind, UE Funct Exercise/Act Treatment Duration: Apr 25, 2023 Frequency: 3 times per week (3-5 times per week) Estimated Hrs Per Day: .25 hour per day Agreement: Yes Rehab Potential: Fair Time Start Time: 09:40 Stop Time: 09:58 DATE: Apr 22, 2023 Total Time Billed (hr/min): 18 Billed Treatment Time ADL 18 min BETSEY GARCIA OT Apr 22, 2023 10:56
[2023-04-22] MEDS ORDERED: hydrALAZINE (APESOLINE) 20 MG/ML VIAL IV ONE (11:00)
[2023-04-22 11:07] VITALS: BP 185/84
[2023-04-22] MEDS ORDERED: TROUGH ORDER-PHARMACY XX NR (12:00)
--- NOTE | 2023-04-22 12:03 | Progress Note ---
CAMERON NORMAN 04/22/23 1203: Subjective Date Seen by a Provider: Apr 22, 2023 Time Seen by a Provider: 08:40 Subjective/Events-last exam Our patient is a 72 yo M admitted for right lower lobe pneumonia. He states that he is feeling pretty good this morning but that his breathing is relatively unchanged from yesterday. He didn't use his bipap last night due to discomfort. He denies constipation or diarrhea, dysuria or frequency, chest pain, abdominal pain, headache, changes in hearing or vision, and dizziness. He is amenable to being transferred to inpatient rehab prior to discharge. Hospital Course: Our patient is a 72 yo M with a past medical history of COPD, CHF, kidney failure, type II diabetes, chronic anticoagulation, and multiple myocardial infarctions requiring stent placement who was admitted for right lower lobe pneumonia. Upon initial arrival to the ER he wasplaced on high-flow oxygen and and an initial chest x-ray and CT confirmed a pneumonia diagnosis. He was given furosemide and started on meropenem and vancomycin and has remained on these antibiotics for the length of his stay. Shortly after admission he was moved to the ICU and placed on bipap for respiratory support. Although his weakness persisted, his breathing and oxygen saturation continued to improve and he was taken off bipap in favor of supplemental oxygen via nasal cannula. Once stable he was moved to general admissions for further management. Due to worsening kidney function, cardiology recommended stopping his lasix and plans to perform a stress test once the patient's pulmonary condition improves. His lung condition has continued to improve throughout his stay and the decision was made to transfer him to rehab for strengthening prior to discharge. Review of Systems General: No Chills; Fatigue; No Malaise HEENT: No Head Aches, No Visual Changes Pulmonary: Dyspnea; No Cough, No Pleuritic Chest Pain Cardiovascular: Edema; No: Chest Pain, Palpitations, Lt Headedness Gastrointestinal: No: Nausea, Vomiting, Abdominal Pain, Diarrhea, Constipation Genitourinary: No Dysuria, No Frequency Musculoskeletal: leg pain (Bilateral knees) Neurological: Weakness; No: Change in speech, Confusion Objective Exam Last Set of Vital Signs Vital Signs Date Time Temp Pulse Resp B/P (MAP) Pulse Ox O2 Delivery O2 Flow Rate FiO2 04/22/23 11:07 36.9 70 18 185/84 (117) 96 Nasal Cannula 4.00 04/20/23 20:27 30 Capillary Refill : Less Than 3 Seconds I&O Intake and Output 04/22/23 00:00 Intake Total 3080 ml Output Total 3900 ml Balance -820 ml Intake Oral 2880 ml IV Total 200 ml Output Urine Total 3900 ml General: Alert, Oriented X3, Cooperative, No Acute Distress HEENT: Atraumatic, PERRLA, EOMI Neck: Supple, No JVD, No Thyromegaly, +2 Carotid Pulse No Bruit Lungs: Other (Quiet crackles heard primarily on the right) Heart: Regular Rate, Normal S1, Normal S2, No Murmurs Abdomen: Normal Bowel Sounds, Soft, No Tenderness, No Hepatosplenomegaly Extremities: No Clubbing, No Cyanosis, Normal Pulses, Other (3+ pitting edema in lower legs bilaterally) Skin: No Rashes, No Breakdown, No Significant Lesion Neuro: Normal Speech, Sensation Intact Psych/Mental Status: Mental Status NL, Mood NL Results Lab Laboratory Tests 04/21/23 16:44: Glucometer 256H 04/21/23 17:45: Vancomycin Level Trough 24.4H 04/21/23 20:49: Glucometer 238H 04/22/23 05:20: Glucometer 258H 04/22/23 05:37: White Blood Count 12.3H, Red Blood Count 3.00L, Hemoglobin 8.2L, Hematocrit 26L, Mean Corpuscular Volume 87, Mean Corpuscular Hemoglobin 27, Mean Corpuscular Hemoglobin Concent 32, Red Cell Distribution Width 16.3H, Platelet Count 231, Mean Platelet Volume 10.6, Immature Granulocyte % (Auto) 1, Neutrophils (%) (Auto) 90H, Lymphocytes (%) (Auto) 5L, Monocytes (%) (Auto) 4, Eosinophils (%) (Auto) 0, Basophils (%) (Auto) 0, Neutrophils # (Auto) 11.1H, Lymphocytes # (Auto) 0.6L, Monocytes # (Auto) 0.5, Eosinophils # (Auto) 0.0, Basophils # (Auto) 0.0, Immature Granulocyte # (Auto) 0.1, Sodium Level 136, Potassium Level 5.0, Chloride Level 104, Carbon Dioxide Level 22, Anion Gap 10, Blood Urea Nitrogen 59H, Creatinine 2.11H, Estimat Glomerular Filtration Rate 33, BUN/Creatinine Ratio 28, Glucose Level 282H, Calcium Level 8.5, Corrected Calcium 9.3, Total Bilirubin 0.3, Aspartate Amino Transf (AST/SGOT) 11, Alanine Aminotransferase (ALT/SGPT) 14, Alkaline Phosphatase 61, Total Protein 6.0L, Albumin 3.0L 04/22/23 10:32: Glucometer 168H Microbiology 04/18/23 Blood Culture - Preliminary, Resulted No growth 04/18/23 MRSA Screen - Final, Complete MRSA not isolated Meds As indicated in medications list Radiology No additional imaging studies conducted Assessment/Plan Assessment/Plan Assess & Plan/Chief Complaint Right Lower Lobe Pneumonia of unknown etiology - improved Hypercapnic Respiratory Failure COPD exacerbation -Condition continues to improve -Continue treatment with meropenem -Vancomycin discontinued for the time being following a high trough level. -Vanc levels could be partially responsible for the acute drop in the patient's kidney function -Discontinue dexamethasone in favor of prednisone -Continue tiotropium, fluticasone, and albuterol -Continue oxygen supplementation as needed -Continue Bipap at night as tolerated HTN -Patient administered hydralazine 10 mg due to excessively high blood pressure -Clonidine to be increased to 0.1 mg 3 times daily Chronic kidney disease -BUN and creatinine were elevated at admission with an eGFR of 40 -Kidney function has declined since admission, cardiology recommends holding furosemide for the time being CHF -Initial BNP was 377.3 with bilateral, 3+ pitting edema of the shins -Continue daily exams to assess fluid status, hold furosemide to prevent further kidney injury Hyperkalemia - resolved -Initial potassium was increased at 5.5 -Levels have since returned to acceptable levels -Carefully monitor with daily chemistries Type II diabetes (insulin dependant) -Sliding scale insulin with Novolog -Novolin 10 units as needed -Levemir 2x daily -Glucose levels acutely worsened, likely due to steroids -Continue to monitor with accuchecks and serial chemistries Normocytic Anemia -Initial Hgb was 8.3, this likely of chronic disease -Hgb has decreased somewhat since admission, this is likely dilutional -Continue to monitor with serial CBCs Bowel regimen available as needed for constipation DVT prophylaxis: lovenox 40 mg Diet: low sodium Disposition: transfer to inpatient rehab CT MCDUFFIE DO 04/23/23 0535: Supervisory-Addendum Brief Verification & Attestation Participated in pt care: history, MDM, physical Personally performed: exam, history, MDM, supervision of care Care discussed with: Medical Student Procedures: n/a Results interpretation: Verified all documentation Verification and Attestation of Medical Student E/M Service A medical student performed and documented this service in my presence. I reviewed and verified all information documented by the medical student and made modifications to such information, when appropriate. I personally performed the physical exam and medical decision making. Ct Mcduffie, Apr 23, 2023,05:35 CAMERON NORMAN Apr 22, 2023 12:03 CT MCDUFFIE DO Apr 23, 2023 05:35
--- NOTE | 2023-04-22 14:35 | Physical Therapy Daily Note ---
PT Daily Note-Current Subjective Patient sitting in chair upon PT arrival, agreeable to treatment. Patient rates pain at 0/10. Pain Section J - Health Conditions 1. Rarely or not at all 2. Occasionally 3. Frequently 4. Almost constantly 8. Unable to answer Pain Effect on Sleep: 1 Pain Interference with Therapy: 1 Pain Interference w/Day-to-Day: 1 Transfers SCALE: Activities may be completed with or without assistive devices. 8-Fleoclxiuq-dgtflyu completes the activity by him/herself with no assistance from a helper. 5-Set-up or Clean-up Assistance-helper sets up or cleans up; patient completes activity. [place] assists only prior to or following the activity. 4-Supervision or Touching Assistance-helper provides verbal cues and/or touching/steadying and/or contact guard assistance as patient completes activity. Assistance may be provided throughout the activity or intermittently. 3-Partial/Moderate Assistance-helper does LESS THAN HALF the effort. [place] lifts, holds or supports trunk or limbs, but provides less than half the effort. 2-Substantial/Maximal Assistance-helper does MORE THAN HALF the effort. [place] lifts or holds trunk or limbs and provides more than half the effort. 8-Hbbcxqaqo-gnkofh does ALL the effort. Patient does none of the effort to complete the activity. Or, the assistance of 2 or more helpers is required for the patient to complete the activity. If activity was not attempted, code reason: 7-Patient Refused. 9-Not Applicable-not attempted and the patient did not perform the activity before the current illness, exacerbation or injury. 10-Not Attempted due to Environmental Limitations-(lack of equipment, weather restraints, etc.). 88-Not Attempted due to Medical Conditions or Safety Concerns. Sit to Stand (QC): 4 Chair/Phq-ep-Uwecq Xfer(QC): 4 Weight Bearing Right Lower Extremity: Right Full Weight Bearing Left Lower Extremity: Left Full Weight Bearing Gait Training Does the Patient Walk?: Yes Distance: 250' Walk 10 feet (QC): 4 Walk 50 ft with 2 Turns(QC): 4 Walk 150 ft (QC): 4 Gait Assistive Device: FWW Assessment Current Status: Fair Progress Patient sitting upright in bed upon PT arrival, agreeable to treatment. Rates pain at 0/10 currently. Patient performs all observed transfers with SBA. Patient ambulates 250 feet with FWW, with SBA and verbal cues for safety, progression, posture and conservation of energy. Patient in chair post treatment with all needs met, nursing notified, call light in reach. PT Blood Typer Goals Blood Typer Goals PT Blood Typer Goals Time Frame: May 24, 2023 Roll Left & Right (QC): 6 Sit to Lying (QC): 6 Lying-Sitting on Side/Bed(QC): 6 Sit to Stand (QC): 6 Chair/Wzd-sb-Rtdvp Xfer(QC): 6 Toilet Transfer (QC): 6 Does the Patient Walk: Yes Walk 10 feet (QC): 6 Walk 50ft with 2 Turns (QC): 4 Walk 150 ft (QC): 4 PT Plan Treatment/Plan Treatment Plan: Continue Plan of Care Treatment Plan: Bed Mobility, Education, Functional Activity González, Functional Strength, Group Therapy, Gait, Safety, Therapeutic Exercise, Transfers Treatment Duration: May 29, 2023 Frequency: 6 times per week Estimated Hrs Per Day: .25 hour per day Patient and/or Family Agrees t: Yes Safety Risks/Education Patient Education: Gait Training, Transfer Techniques Teaching Recipient: Patient Teaching Methods: Demonstration, Discussion Response to Teaching: Verbalize Understanding, Return Demonstration Time Time In: 1052 Time Out: 1105 DATE: Apr 22, 2023 Total Billed Treatment Time: 13 Total Billed Treatment Visit, GT LISA CORRALES PT Apr 22, 2023 14:35
[2023-04-22] MEDS: ENOXAPARIN 40 MG/0.4 ML SYRINGE SC SCH (15:33)
[2023-04-22] MEDS: MONTELUKAST 10 MG (SINGULAIR) TAB PO SCH (16:00)
[2023-04-22] MEDS: TAMSULOSIN 0.4 MG (FLOMAX) CAP PO SCH (16:00)
[2023-04-22] MEDS: predniSONE 20 MG TAB PO SCH (16:01)
[2023-04-22 16:17] VITALS: BP 152/67
[2023-04-22 20:00] VITALS: BP 142/74
[2023-04-22 23:04] VITALS: BP 125/54
[2023-04-23] MEDS: RT-ALBUTEROL/IPRATROPIUM 3 ML (DUONEB) VIAL INH SCH ×4 (03:14→21:28)
[2023-04-23 03:22] VITALS: BP 172/65
[2023-04-23] MEDS: PANTOPRAZOLE 40 MG (PROTONIX) TAB PO SCH (05:21)
[2023-04-23] MEDS: MEROPENEM 500 MG in NS (IVPB) 100 ML 100 ML IV SCH ×2 (05:21→13:13)
[2023-04-23] MEDS: inSUlin ASPART (NovoLOG) 1 UNIT/0.01 ML (CHARGE PER UNIT) SC SCH ×4 (05:21→20:22)
[2023-04-23] MEDS: predniSONE 20 MG TAB PO SCH (05:22)
[2023-04-23 06:26] LABS: ALBUMIN 3.3 GM/DL (3.2-4.5)
[2023-04-23 06:27] LABS: CALCIUM 8.8 MG/DL (8.5-10.1)
[2023-04-23 06:28] LABS: BASOPHILS % (AUTO) 0 % (0-10); EOSINOPHILS % (AUTO) 0 % (0-10); HEMATOCRIT 27 % (40-54); HEMOGLOBIN 8.7 g/dL (13.3-17.7); LYMPHOCYTES # (AUTO) 0.3 10^3/uL (1.0-4.0); LYMPHOCYTES % (AUTO) 3 % (12-44); MEAN CORPUSCULAR HEMOGLOBIN 27 pg (25-34); MEAN CORPUSCULAR HGB CONC 32 g/dL (32-36); MEAN CORPUSCULAR VOLUME 86 fL (80-99); MEAN PLATELET VOLUME 10.7 fL (9.0-12.2); MONOCYTES # (AUTO) 0.1 10^3/uL (0.0-1.0); MONOCYTES % (AUTO) 1 % (0-12); NEUTROPHILS # (AUTO) 12.3 10^3/uL (1.8-7.8); NEUTROPHILS % (AUTO) 96 % (42-75); PLATELET COUNT 252 10^3/uL (130-400); TOTAL PROTEIN 6.5 GM/DL (6.4-8.2); WHITE BLOOD COUNT 12.9 10^3/uL (4.3-11.0)
[2023-04-23 06:30] LABS: BILIRUBIN,TOTAL 0.3 MG/DL (0.1-1.0)
[2023-04-23 06:32] LABS: CREATININE SERUM 2.12 MG/DL (0.60-1.30)
[2023-04-23] MEDS: TIOTROPIUM INH 4 GM (SPIRIVA Respimat) IH SCH (07:29)
[2023-04-23] MEDS: FLUTICASONE/VILANTEROL 200 MCG 14'S (BREO) IH SCH (07:29)
[2023-04-23] MEDS: DOCUSATE SODIUM 100 MG CAPSULE PO SCH ×2 (07:57→20:21)
[2023-04-23] MEDS: amLODIPine 5 MG TABLET PO SCH (07:58)
[2023-04-23] MEDS: cloNIDine 0.1 MG TABLET PO SCH ×3 (07:58→20:21)
[2023-04-23] MEDS: FUROSEMIDE 20 MG (LASIX) TAB PO SCH (07:58)
[2023-04-23] MEDS: CLOPIDOGREL 75 MG TABLET PO SCH (07:58)
[2023-04-23] MEDS: ASPIRIN enteric coated 81MG TABLET PO SCH (07:58)
[2023-04-23] MEDS: SENNOSIDES 8.6 MG (SENOKOT) TAB PO SCH ×2 (07:58→20:21)
[2023-04-23] MEDS: carvediloL 12.5 MG TABLET PO SCH ×2 (07:58→17:49)
[2023-04-23] MEDS: FLUTICASONE NASAL SPRAY (FLONASE) 16 GM BTL NS SCH (07:59)
[2023-04-23] MEDS: ALOGLIPTIN 6.25 MG PO SCH (07:59)
[2023-04-23 08:00] VITALS: BP 168/75
[2023-04-23] MEDS: CYANOCOBALAMIN 1,000 MCG TABLET PO SCH (08:04)
[2023-04-23] MEDS: FOLIC ACID 1 MG TAB PO SCH (08:05)
[2023-04-23] MEDS ORDERED: TROUGH ORDER-PHARMACY XX NR (09:00)
--- NOTE | 2023-04-23 11:21 | Occupational Ther Daily Note ---
OT Current Status-Daily Note Subjective Pleasantly participates w/ OT Pain Numeric Pain Scale: 4 Comment: "My back always hurts, I just live with it" Mental Status/Objective Patient Orientation: Person, Place, Time, Situation Attachments: Oxygen Patient manages 02 w/o VCs and no safety concerns, Patient reports SOA w/ transfer out of bed and ambulation short distance in room w/ FWW, VC for energy conservation w/ correct position use of FWW, 4 Liter NC 96% at rest and 93 w/ activity ADL-Treatment Gown change and clean socks, short session in bathroom to use commode in standing w/ FWW over top of toilet bowl SBA, hand washing at lavatory SBA. Therapy Code Descriptions/Definitions Functional [place] Measure: 0=Not Assessed/NA 4=Minimal Assistance 1=Total Assistance 5=Supervision or Setup 2=Maximal Assistance 6=Modified [place] 3=Moderate Assistance 7=Complete IndependenceSCALE: Activities may be completed with or without assistive devices. 2-Qlthohhrzs-qosxmur completes the activity by him/herself with no assistance from a helper. 5-Set-up or Clean-up Assistance-helper sets up or cleans up; patient completes activity. [place] assists only prior to or following the activity. 4-Supervision or Touching Assistance-helper provides verbal cues and/or touching/steadying and/or contact guard assistance as patient completes activity. Assistance may be provided throughout the activity or intermittently. 3-Partial/Moderate Assistance-helper does LESS THAN HALF the effort. [place] lifts, holds or supports trunk or limbs, but provides less than half the effort. 2-Substantial/Maximal Assistance-helper does MORE THAN HALF the effort. [place] lifts or holds trunk or limbs and provides more than half the effort. 8-Kkuzhcesn-snxuuu does ALL the effort. Patient does none of the effort to complete the activity. Or, the assistance of 2 or more helpers is required for the patient to complete the activity. If activity was not attempted, code reason: 7-Patient Refused. 9-Not Applicable-not attempted and the patient did not perform the activity before the current illness, exacerbation or injury. 10-Not Attempted due to Environmental Limitations-(lack of equipment, weather restraints, etc.). 88-Not Attempted due to Medical Conditions or Safety Concerns. Eating (QC): 6 Oral Hygiene (QC): 5 (minmally performs oral care) Shower/Bathe Self (QC): 7 Upper Body Dressing (QC): 5 Lower Body Dressing (QC): 5 On/Off Footwear: 5 Toileting Hygiene (QC): 5 Toilet Transfer (QC): 5 Education OT Patient Education: Correct positioning, Energy conservation, Modified ADL techniques, Progress toward Goal/Update tx plan, Purpose of tx/functional activities, Reviewed precautions, Rehab process, Safety issues, Transfer techniques, Use of adapted equipment Teaching Recipient: Patient Teaching Methods: Demonstration Response to Teaching: Return Demonstration OT Intermediate Goals Insulation Estimator Goals Toileting Hygiene (QC): 4 Shower/Bathe Self (QC): 4 Lower Body Dressing (QC): 4 On/Off Footwear (QC): 4 1=Demonstrate adherence to instructed precautions during ADL tasks. 2=Patient will verbalize/demonstrate understanding of assistive devices/modifi cations for ADL. 3=Patient will improve strength/tolerance for activity to enable patient to perform ADL's. OT Education/Plan Discharge Recommendations Plan/Recommendations: Continue POC (likely to DC next session) Treatment Plan/Plan of Care Treatment,Training & Education: Yes Patient would benefit from OT for education, treatment and training to promote independence in ADL's, mobility, safety and/or upper extremity function for ADL's. Plan of Care: ADL Retraining, Concurrent Therapy, Functional Mobility, Group Exercise/Act as Ind, UE Funct Exercise/Act Treatment Duration: Apr 25, 2023 Frequency: 3 times per week (3-5 times per week) Estimated Hrs Per Day: .25 hour per day Agreement: Yes Rehab Potential: Fair Time Start Time: 10:20 Stop Time: 10:30 DATE: Apr 23, 2023 Total Time Billed (hr/min): 10 Billed Treatment Time ADL 10 min BETSEY GARCIA OT Apr 23, 2023 11:21
--- NOTE | 2023-04-23 11:25 | Cardiology Progress Note ---
Subjective Date Seen by Provider: Apr 23, 2023 Time Seen by Provider: 08:50 Subjective/Events-last exam Patient in bed, no new complaints, denies any chest pain or increased dyspnea. Objective-Cardiology Exam Last Set of Vital Signs Vital Signs 04/20/23 04/23/23 20:27 15:37 Temp 36.2 Pulse 70 Resp 20 B/P (MAP) 159/70 (99) Pulse Ox 94 O2 Delivery Nasal Cannula O2 Flow Rate 4.00 FiO2 30 I&O Intake and Output 04/23/23 00:00 Intake Total 2510 ml Output Total 2975 ml Balance -465 ml Intake Oral 2510 ml Output Urine Total 2975 ml General: Alert, Oriented X3, Cooperative, No Acute Distress HEENT: Atraumatic, PERRLA, EOMI Neck: Supple, No JVD, No Thyromegaly, +2 Carotid Pulse No Bruit Lungs: Other (Quiet crackles heard primarily on the right) Heart: Regular Rate, Normal S1, Normal S2, No Murmurs Abdomen: Normal Bowel Sounds, Soft, No Tenderness, No Hepatosplenomegaly Extremities: No Clubbing, No Cyanosis, Normal Pulses, Other (2-3+ pitting edema in lower legs bilaterally) Skin: No Rashes, No Breakdown, No Significant Lesion Neuro: Normal Speech, Sensation Intact Psych/Mental Status: Mental Status NL, Mood NL Results Lab Laboratory Tests 04/23/23 06:00 A/P-Cardiology Admission Diagnosis Acute on chronic respiratory failure AE COPD CAD PAD Assessment/Plan Acute on chronic respiratory failure, likely COPD exacerbation and pneumonia. C ontribution from acute on chronic diastolic congestive heart failure. Elevated BNP. IV steroids given in the ER. Lasix in the ER. Hypertension, Clonidine increased to 0.1 mg 3 times daily Continue all other medication monitor blood pressure DM, management per medical services. CAD, continue antiplatelet therapy. PAD, no active issues. Acute on chronic diastolic congestive heart failure, given Lasix in the ER. Continue on current medications and continue to monitor. Stage IV chronic kidney disease, monitor kidney function very closely. Avoid nephrotoxins. Continue to monitor. Ex tobaccoism, patient recently quit smoking. Encourage to continue with smoking cessation. Mildly positive troponin, likely type II DE due to acute respiratory failure. However patient's last stress test was in 2020. He has a left bundle branch block. Will plan for stress test as an outpatient. Left bundle branch block Moderate to severe back pain. Supervisory-Addendum Brief Supervisory Addendum Participated in pt care: history, MDM, physical Personally performed: exam, history, MDM Care discussed with: TON Results interpretation: Verified all documentation Notes: Patient was seen and evaluated with Roger, examination performed, management plan was discussed, agree with the current scribed note, I made few changes to the note using Italic font Patient was seen at bedside, sitting comfortably, feeling better Blood pressure is still labile, continue on current medication Continue to monitor blood pressure, no changes are recommended He is still receiving steroid at this point which will affect his blood pressure. ROGER GRANT Apr 23, 2023 11:25 FADUMO TALAVERA MD Apr 23, 2023 15:38
[2023-04-23 11:42] VITALS: BP 178/72
[2023-04-23] MEDS: ENOXAPARIN 40 MG/0.4 ML SYRINGE SC SCH (13:13)
--- NOTE | 2023-04-23 13:34 | Progress Note ---
CAMERON NORMAN 04/23/23 1334: Subjective Date Seen by a Provider: Apr 23, 2023 Time Seen by a Provider: 08:40 Subjective/Events-last exam Our patient is a 72 yo M admitted for right lower lobe pneumonia. He states that he is feeling pretty good this morning. He denies chest pain and notes that his breathing is better. Further denies chills, abdominal pain, constipation, diarrhea, nausea, vomiting, or lightheadedness. He continues to experience weakness with walking while in physical therapy as well as pain in both knees. He has no other concerns or symptoms of note. Review of Systems General: No Chills, No Night Sweats; Fatigue; No Malaise HEENT: No Head Aches, No Visual Changes Pulmonary: Dyspnea; No Pleuritic Chest Pain Cardiovascular: Edema; No: Chest Pain, Palpitations Gastrointestinal: No: Nausea, Vomiting, Abdominal Pain, Diarrhea, Constipation Genitourinary: No Dysuria, No Frequency Musculoskeletal: leg pain (Bilateral knees) Neurological: Weakness; No: Change in speech, Confusion Objective Exam Last Set of Vital Signs Vital Signs Date Time Temp Pulse Resp B/P (MAP) Pulse Ox O2 Delivery O2 Flow Rate FiO2 04/23/23 11:42 36.6 71 24 178/72 (107) 96 Nasal Cannula 4.00 04/20/23 20:27 30 Capillary Refill : Less Than 3 Seconds I&O Intake and Output 04/22/23 23:59 Intake Total 2510 ml Output Total 2975 ml Balance -465 ml Intake Oral 2510 ml Output Urine Total 2975 ml General: Alert, Oriented X3, Cooperative, No Acute Distress HEENT: Atraumatic, PERRLA, EOMI Neck: Supple, No JVD, No Thyromegaly, +2 Carotid Pulse No Bruit Lungs: Other (Quiet crackles still present in right lung but improved substantially since admission) Heart: Regular Rate, Normal S1, Normal S2, No Murmurs Abdomen: Normal Bowel Sounds, Soft, No Tenderness Extremities: No Clubbing, No Cyanosis, Other (3+ pedal edema, pitting) Skin: No Rashes, No Breakdown, No Significant Lesion Neuro: Normal Speech, Sensation Intact Psych/Mental Status: Mental Status NL, Mood NL Results Lab Laboratory Tests 04/22/23 19:41: Glucometer 206H 04/23/23 05:05: Glucometer 302H 04/23/23 06:00: White Blood Count 12.9H, Red Blood Count 3.20L, Hemoglobin 8.7L, Hematocrit 27L, Mean Corpuscular Volume 86, Mean Corpuscular Hemoglobin 27, Mean Corpuscular Hemoglobin Concent 32, Red Cell Distribution Width 16.4H, Platelet Count 252, Mean Platelet Volume 10.7, Immature Granulocyte % (Auto) 1, Neutrophils (%) (Auto) 96H, Lymphocytes (%) (Auto) 3L, Monocytes (%) (Auto) 1, Eosinophils (%) (Auto) 0, Basophils (%) (Auto) 0, Neutrophils # (Auto) 12.3H, Lymphocytes # (Auto) 0.3L, Monocytes # (Auto) 0.1, Eosinophils # (Auto) 0.0, Basophils # (Auto) 0.0, Immature Granulocyte # (Auto) 0.1, Sodium Level 136, Potassium Level 5.0, Chloride Level 101, Carbon Dioxide Level 22, Anion Gap 13, Blood Urea Nitrogen 63H, Creatinine 2.12H, Estimat Glomerular Filtration Rate 33, BUN/Creatinine Ratio 30, Glucose Level 273H, Calcium Level 8.8, Corrected Calcium 9.4, Total Bilirubin 0.3, Aspartate Amino Transf (AST/SGOT) 13, Alanine Aminotransferase (ALT/SGPT) 16, Alkaline Phosphatase 65, Total Protein 6.5, Albumin 3.3 04/23/23 09:16: Vancomycin Level Trough 16.3 04/23/23 10:48: Glucometer 232H Microbiology 04/18/23 Blood Culture - Preliminary, Resulted No growth 04/18/23 MRSA Screen - Final, Complete MRSA not isolated Meds As indicated in medications list Radiology No further imaging conducted Assessment/Plan Assessment/Plan Assess & Plan/Chief Complaint Right Lower Lobe Pneumonia of unknown etiology - improved Hypercapnic Respiratory Failure COPD exacerbation -Condition continues to improve -Continue treatment with meropenem, on -Vancomycin discontinued for the time being following a high trough level. -Subsequent trough on 04/22 remained high but had fallen to acceptable ranges on 04/23 -Vanc levels could be partially responsible for the acute drop in the patient's kidney function -Continue prednisone -Continue tiotropium, fluticasone, and albuterol -Continue oxygen supplementation as needed -Continue Bipap at night as tolerated HTN -Clonidine increased to 0.1 mg 3 times daily -Continue coreg 12.5 mg BID with meals -Continue norvasc 5 mg daily -Hydralazine is available in instances of hypertensive urgency Chronic kidney disease -BUN and creatinine were elevated at admission with an eGFR of 40 -Kidney function has declined since admission, cardiology recommends holding furosemide for the time being CHF -Initial BNP was 377.3 with bilateral, 3+ pitting edema of the shins -Continue daily exams to assess fluid status, hold furosemide to prevent further kidney injury -Patient has a left bundle branch block -Will be seen for a stress test as an outpatient Hyperkalemia - resolved -Initial potassium was increased at 5.5 -Levels have since returned to acceptable levels -Carefully monitor with daily chemistries Type II diabetes (insulin dependant) -Sliding scale insulin with Novolog -Novolin 10 units as needed -Levemir 2x daily -Glucose levels acutely worsened, likely due to steroids -Continue to monitor with accuchecks and serial chemistries Normocytic Anemia -Initial Hgb was 8.3, this likely of chronic disease -Hgb has decreased somewhat since admission, this is likely dilutional -Continue to monitor with serial CBCs Bowel regimen available as needed for constipation DVT prophylaxis: lovenox 40 mg Diet: low sodium Disposition: transfer to inpatient rehab CT MCDUFFIE DO 04/24/23 0516: Supervisory-Addendum Brief Verification & Attestation Participated in pt care: history, MDM, physical Personally performed: exam, history, MDM, supervision of care Care discussed with: Medical Student Procedures: n/a Results interpretation: Verified all documentation Verification and Attestation of Medical Student E/M Service A medical student performed and documented this service in my presence. I reviewed and verified all information documented by the medical student and made modifications to such information, when appropriate. I personally performed the physical exam and medical decision making. Ct Mcduffie Apr 24, 2023,05:16 CAMERON NORMAN Apr 23, 2023 13:34 CT MCDUFFIE DO Apr 24, 2023 05:16
--- NOTE | 2023-04-23 14:38 | Physical Therapy Daily Note ---
PT Daily Note-Current Subjective Patient sitting in chair upon PT arrival, agreeable to treatment. Rates pain at 0/10 currently. Pain Section J - Health Conditions 1. Rarely or not at all 2. Occasionally 3. Frequently 4. Almost constantly 8. Unable to answer Pain Effect on Sleep: 1 Pain Interference with Therapy: 1 Pain Interference w/Day-to-Day: 1 Mental Status Patient Orientation: Person, Place, Time, Situation Transfers SCALE: Activities may be completed with or without assistive devices. 6-Mddywonxzg-wjswflc completes the activity by him/herself with no assistance from a helper. 5-Set-up or Clean-up Assistance-helper sets up or cleans up; patient completes activity. [place] assists only prior to or following the activity. 4-Supervision or Touching Assistance-helper provides verbal cues and/or touching/steadying and/or contact guard assistance as patient completes activity. Assistance may be provided throughout the activity or intermittently. 3-Partial/Moderate Assistance-helper does LESS THAN HALF the effort. [place] lifts, holds or supports trunk or limbs, but provides less than half the effort. 2-Substantial/Maximal Assistance-helper does MORE THAN HALF the effort. [place] lifts or holds trunk or limbs and provides more than half the effort. 1-Gubyeliwb-uxuamv does ALL the effort. Patient does none of the effort to complete the activity. Or, the assistance of 2 or more helpers is required for the patient to complete the activity. If activity was not attempted, code reason: 7-Patient Refused. 9-Not Applicable-not attempted and the patient did not perform the activity before the current illness, exacerbation or injury. 10-Not Attempted due to Environmental Limitations-(lack of equipment, weather restraints, etc.). 88-Not Attempted due to Medical Conditions or Safety Concerns. Sit to Stand (QC): 4 Chair/Qhu-jj-Pmmhx Xfer(QC): 4 Weight Bearing Right Lower Extremity: Right Full Weight Bearing Left Lower Extremity: Left Full Weight Bearing Gait Training Does the Patient Walk?: Yes Distance: 250' Walk 10 feet (QC): 4 Walk 50 ft with 2 Turns(QC): 4 Walk 150 ft (QC): 4 Gait Assistive Device: FWW Assessment Current Status: Fair Progress Patient sitting upright in bed upon PT arrival, agreeable to treatment. Rates pain at 0/10 currently. Patient performs all observed transfers with SBA. Patient ambulates 250 feet with FWW, with SBA and verbal cues for safety, progression, posture and conservation of energy. Patient in chair post treatment with all needs met, nursing notified, call light in reach. PT Linker Up Goals Linker Up Goals PT Linker Up Goals Time Frame: May 24, 2023 Roll Left & Right (QC): 6 Sit to Lying (QC): 6 Lying-Sitting on Side/Bed(QC): 6 Sit to Stand (QC): 6 Chair/Lfw-lh-Lrase Xfer(QC): 6 Toilet Transfer (QC): 6 Does the Patient Walk: Yes Walk 10 feet (QC): 6 Walk 50ft with 2 Turns (QC): 4 Walk 150 ft (QC): 4 PT Plan Treatment/Plan Treatment Plan: Continue Plan of Care Treatment Plan: Bed Mobility, Education, Functional Activity González, Functional Strength, Group Therapy, Gait, Safety, Therapeutic Exercise, Transfers Treatment Duration: May 29, 2023 Frequency: 6 times per week Estimated Hrs Per Day: .25 hour per day Patient and/or Family Agrees t: Yes Safety Risks/Education Patient Education: Gait Training, Transfer Techniques Teaching Recipient: Patient Teaching Methods: Demonstration Response to Teaching: Verbalize Understanding, Return Demonstration Time Time In: 1030 Time Out: 1040 DATE: Apr 23, 2023 Total Billed Treatment Time: 10 Total Billed Treatment Visit, LISA JIANG PT Apr 23, 2023 14:38
[2023-04-23 15:37] VITALS: BP 159/70
[2023-04-23] MEDS: MONTELUKAST 10 MG (SINGULAIR) TAB PO SCH (17:49)
[2023-04-23] MEDS: TAMSULOSIN 0.4 MG (FLOMAX) CAP PO SCH (17:49)
[2023-04-23] MEDS ORDERED: VANCOMYCIN 1 GM/NS 250 ML IVPB IV SCH ×2 (18:00)
[2023-04-23] MEDS ORDERED: VANCOMYCIN 1250 MG/NS 250 ML PREMIX IV SCH (18:00)
[2023-04-23 19:59] VITALS: BP 137/63
[2023-04-23 23:26] VITALS: BP 134/60
[2023-04-24] MEDS: RT-ALBUTEROL/IPRATROPIUM 3 ML (DUONEB) VIAL INH SCH ×4 (04:11→21:39)
[2023-04-24] MEDS: inSUlin ASPART (NovoLOG) 1 UNIT/0.01 ML (CHARGE PER UNIT) SC SCH ×4 (05:46→20:29)
[2023-04-24] MEDS: predniSONE 20 MG TAB PO SCH (05:47)
[2023-04-24] MEDS: PANTOPRAZOLE 40 MG (PROTONIX) TAB PO SCH (05:47)
[2023-04-24 06:01] LABS: BASOPHILS % (AUTO) 0 % (0-10); EOSINOPHILS # (AUTO) 0.2 10^3/uL (0.0-0.3); EOSINOPHILS % (AUTO) 1 % (0-10); HEMATOCRIT 24 % (40-54); HEMOGLOBIN 7.5 g/dL (13.3-17.7); LYMPHOCYTES # (AUTO) 1.4 10^3/uL (1.0-4.0); LYMPHOCYTES % (AUTO) 8 % (12-44); MEAN CORPUSCULAR HEMOGLOBIN 27 pg (25-34); MEAN CORPUSCULAR HGB CONC 32 g/dL (32-36); MEAN CORPUSCULAR VOLUME 86 fL (80-99); MONOCYTES % (AUTO) 6 % (0-12); NEUTROPHILS # (AUTO) 13.5 10^3/uL (1.8-7.8); NEUTROPHILS % (AUTO) 83 % (42-75); PLATELET COUNT 224 10^3/uL (130-400); WHITE BLOOD COUNT 16.1 10^3/uL (4.3-11.0)
[2023-04-24 06:17] LABS: ALBUMIN 2.6 GM/DL (3.2-4.5); POTASSIUM 4.6 MMOL/L (3.6-5.0)
[2023-04-24 06:18] LABS: CALCIUM 8.3 MG/DL (8.5-10.1)
[2023-04-24 06:19] LABS: TOTAL PROTEIN 4.9 GM/DL (6.4-8.2)
[2023-04-24 06:21] LABS: BILIRUBIN,TOTAL 0.2 MG/DL (0.1-1.0)
[2023-04-24 06:23] LABS: CREATININE SERUM 2.19 MG/DL (0.60-1.30)
[2023-04-24 06:56] LABS: ANISOCYTOSIS MODERATE; EOSINOPHILS % (MANUAL) 1 %; LYMPHOCYTES % (MANUAL) 8 %; MONOCYTES % (MANUAL) 5 %; NEUTROPHILS % (MANUAL) 86 %
[2023-04-24 06:57] LABS: BURR CELLS SLIGHT; HELMET/BITE CELLS SLIGHT; HYPOCHROMASIA SLIGHT
[2023-04-24] MEDS: TIOTROPIUM INH 4 GM (SPIRIVA Respimat) IH SCH (07:22)
[2023-04-24] MEDS: FLUTICASONE/VILANTEROL 200 MCG 14'S (BREO) IH SCH (07:22)
[2023-04-24] MEDS: amLODIPine 5 MG TABLET PO SCH (08:02)
[2023-04-24] MEDS: FOLIC ACID 1 MG TAB PO SCH (08:02)
[2023-04-24] MEDS: CYANOCOBALAMIN 1,000 MCG TABLET PO SCH (08:02)
[2023-04-24] MEDS: cloNIDine 0.1 MG TABLET PO SCH ×3 (08:02→20:28)
[2023-04-24] MEDS: ALOGLIPTIN 6.25 MG PO SCH (08:02)
[2023-04-24] MEDS: CLOPIDOGREL 75 MG TABLET PO SCH (08:02)
[2023-04-24] MEDS: FUROSEMIDE 20 MG (LASIX) TAB PO SCH (08:03)
[2023-04-24] MEDS: carvediloL 12.5 MG TABLET PO SCH ×2 (08:03→17:49)
[2023-04-24] MEDS: ASPIRIN enteric coated 81MG TABLET PO SCH (08:03)
[2023-04-24] MEDS: FLUTICASONE NASAL SPRAY (FLONASE) 16 GM BTL NS SCH (08:06)
[2023-04-24] MEDS: DOCUSATE SODIUM 100 MG CAPSULE PO SCH ×2 (08:06→20:28)
[2023-04-24] MEDS: SENNOSIDES 8.6 MG (SENOKOT) TAB PO SCH ×2 (08:06→20:28)
[2023-04-24 08:14] VITALS: BP 173/73
--- NOTE | 2023-04-24 09:13 | Cardiology Progress Note ---
Subjective Date Seen by Provider: Apr 24, 2023 Time Seen by Provider: 08:50 Subjective/Events-last exam Patient sitting up at bedside, eating breakfast. States dyspnea is improving. Denies any chest pain Objective-Cardiology Exam Last Set of Vital Signs Vital Signs 04/24/23 04/24/23 04/24/23 12:02 15:00 15:09 Temp 36.0 Pulse 66 Resp 20 B/P (MAP) 147/65 (92) Pulse Ox 98 O2 Delivery Nasal Cannula O2 Flow Rate 4.00 FiO2 36 I&O Intake and Output 04/24/23 00:00 Intake Total 1870 ml Output Total 2425 ml Balance -555 ml Intake Oral 1870 ml Output Urine Total 2425 ml General: Alert, Oriented X3, Cooperative, No Acute Distress HEENT: Atraumatic, PERRLA, EOMI Neck: Supple, No JVD, No Thyromegaly, +2 Carotid Pulse No Bruit Lungs: Other (Quiet crackles still present in right lung but improved substantially since admission) Heart: Regular Rate, Normal S1, Normal S2, No Murmurs Abdomen: Normal Bowel Sounds, Soft, No Tenderness Extremities: No Clubbing, No Cyanosis, Other (3+ pedal edema, pitting) Skin: No Rashes, No Breakdown, No Significant Lesion Neuro: Normal Speech, Sensation Intact Psych/Mental Status: Mental Status NL, Mood NL Results Lab Laboratory Tests 04/24/23 05:40 A/P-Cardiology Admission Diagnosis Acute on chronic respiratory failure AE COPD CAD PAD Assessment/Plan Acute on chronic respiratory failure, likely COPD exacerbation and pneumonia. Contribution from acute on chronic diastolic congestive heart failure. Impr oving. Hypertension, Clonidine increased to 0.1 mg 3 times daily Blood pressure better controlled, continue to monitor. DM, management per medical services. CAD, continue antiplatelet therapy. PAD, no active issues. Acute on chronic diastolic congestive heart failure, given Lasix in the ER. Continue on current medications and continue to monitor. Stage IV chronic kidney disease, monitor kidney function very closely. Avoid nephrotoxins. Continue to monitor. Ex tobaccoism, patient recently quit smoking. Encourage to continue with smoking cessation. Mildly positive troponin, likely type II CO due to acute respiratory failure. However patient's last stress test was in 2020. He has a left bundle branch block. Will plan for stress test as an outpatient. Left bundle branch block Moderate to severe back pain. Supervisory-Addendum Brief Supervisory Addendum Participated in pt care: history, MDM, physical Personally performed: exam, history, MDM Care discussed with: TON Results interpretation: Verified all documentation Notes: Patient was seen and evaluated with Roger, examination performed, management plan was discussed, agree with the current scribed note, I made few changes to the note using Italic font Patient was seen at bedside, sitting comfortably, denied any chest pain Reporting improvement in his breathing Blood pressure still slightly labile but overall significantly better Continue on current medication, monitor blood pressure, continue to titrate down steroids ROGER GRANT Apr 24, 2023 09:13 FADUMO TALAVERA MD Apr 24, 2023 15:28
--- NOTE | 2023-04-24 11:08 | Physical Therapy Daily Note ---
PT Daily Note-Current Subjective Patient agrees to PT. Pain Section J - Health Conditions 1. Rarely or not at all 2. Occasionally 3. Frequently 4. Almost constantly 8. Unable to answer Pain Effect on Sleep: 1 Pain Interference with Therapy: 1 Pain Interference w/Day-to-Day: 1 Mental Status Patient Orientation: Normal For Age Attachments: Oxygen Transfers SCALE: Activities may be completed with or without assistive devices. 0-Ptvjtwpvlh-dfzekob completes the activity by him/herself with no assistance from a helper. 5-Set-up or Clean-up Assistance-helper sets up or cleans up; patient completes activity. [place] assists only prior to or following the activity. 4-Supervision or Touching Assistance-helper provides verbal cues and/or touching/steadying and/or contact guard assistance as patient completes activity. Assistance may be provided throughout the activity or intermittently. 3-Partial/Moderate Assistance-helper does LESS THAN HALF the effort. [place] lifts, holds or supports trunk or limbs, but provides less than half the effort. 2-Substantial/Maximal Assistance-helper does MORE THAN HALF the effort. [place] lifts or holds trunk or limbs and provides more than half the effort. 8-Zpycjfyqq-vwrxet does ALL the effort. Patient does none of the effort to complete the activity. Or, the assistance of 2 or more helpers is required for the patient to complete the activity. If activity was not attempted, code reason: 7-Patient Refused. 9-Not Applicable-not attempted and the patient did not perform the activity before the current illness, exacerbation or injury. 10-Not Attempted due to Environmental Limitations-(lack of equipment, weather restraints, etc.). 88-Not Attempted due to Medical Conditions or Safety Concerns. Sit to Stand (QC): 4 Weight Bearing Right Lower Extremity: Right Full Weight Bearing Left Lower Extremity: Left Full Weight Bearing Gait Training Distance: 275' Walk 10 feet (QC): 44 Walk 50 ft with 2 Turns(QC): 4 Walk 150 ft (QC): 4 Gait Assistive Device: FWW trunk flexed posture/functional gait sequence Assessment Patient tolerated treatment well. Noted SOA with activity with quick recovery. Patient sitting EOB upon arrival and exit. PT Language Pathologist Goals Language Pathologist Goals PT Alf Goals Time Frame: May 24, 2023 Roll Left & Right (QC): 6 Sit to Lying (QC): 6 Lying-Sitting on Side/Bed(QC): 6 Sit to Stand (QC): 6 Chair/Ble-om-Wrzlj Xfer(QC): 6 Toilet Transfer (QC): 6 Does the Patient Walk: Yes Walk 10 feet (QC): 6 Walk 50ft with 2 Turns (QC): 4 Walk 150 ft (QC): 4 PT Plan Treatment/Plan Treatment Plan: Continue Plan of Care Treatment Plan: Bed Mobility, Education, Functional Activity González, Functional Strength, Group Therapy, Gait, Safety, Therapeutic Exercise, Transfers Treatment Duration: May 29, 2023 Frequency: 6 times per week Estimated Hrs Per Day: .25 hour per day Patient and/or Family Agrees t: Yes Time Time In: 1016 Time Out: 1028 DATE: Apr 24, 2023 Total Billed Treatment Time: 12 Total Billed Treatment 1 visit FA 12 min YUNG HASSAN PT Apr 24, 2023 11:08
[2023-04-24 12:02] VITALS: BP 147/65
--- NOTE | 2023-04-24 12:44 | Occupational Ther Daily Note ---
OT Current Status-Daily Note Subjective Resting in bed, agreeable to OT and sponge bathing. Pain Numeric Pain Scale: 5-Moderate Pain Location Body Site: Back Pain Description: Chronic Mental Status/Objective Patient Orientation: Person, Place, Time, Situation ADL-Treatment Therapy Code Descriptions/Definitions Functional [place] Measure: 0=Not Assessed/NA 4=Minimal Assistance 1=Total Assistance 5=Supervision or Setup 2=Maximal Assistance 6=Modified [place] 3=Moderate Assistance 7=Complete IndependenceSCALE: Activities may be completed with or without assistive devices. 1-Koweudxqdv-rhjjixw completes the activity by him/herself with no assistance from a helper. 5-Set-up or Clean-up Assistance-helper sets up or cleans up; patient completes activity. [place] assists only prior to or following the activity. 4-Supervision or Touching Assistance-helper provides verbal cues and/or touching/steadying and/or contact guard assistance as patient completes activity. Assistance may be provided throughout the activity or intermittently. 3-Partial/Moderate Assistance-helper does LESS THAN HALF the effort. [place] lifts, holds or supports trunk or limbs, but provides less than half the effort. 2-Substantial/Maximal Assistance-helper does MORE THAN HALF the effort. [place] lifts or holds trunk or limbs and provides more than half the effort. 1-Llsctfanl-uzcemr does ALL the effort. Patient does none of the effort to complete the activity. Or, the assistance of 2 or more helpers is required for the patient to complete the activity. If activity was not attempted, code reason: 7-Patient Refused. 9-Not Applicable-not attempted and the patient did not perform the activity before the current illness, exacerbation or injury. 10-Not Attempted due to Environmental Limitations-(lack of equipment, weather restraints, etc.). 88-Not Attempted due to Medical Conditions or Safety Concerns. Eating (QC): 6 Oral Hygiene (QC): 6 Shower/Bathe Self (QC): 4 (spopnge assistance w/ back only) Upper Body Dressing (QC): 5 Lower Body Dressing (QC): 5 On/Off Footwear: 5 Toileting Hygiene (QC): 5 Toilet Transfer (QC): 5 Education OT Patient Education: Exercise program, Modified ADL techniques, Progress toward Goal/Update tx plan, Purpose of tx/functional activities, Reviewed precautions, Rehab process, Safety issues, Transfer techniques, Use of adapted equipment Teaching Recipient: Patient Teaching Methods: Demonstration Response to Teaching: Return Demonstration OT Hotel Server Goals [facility] Goals Toileting Hygiene (QC): 4 Shower/Bathe Self (QC): 4 Lower Body Dressing (QC): 4 On/Off Footwear (QC): 4 1=Demonstrate adherence to instructed precautions during ADL tasks. 2=Patient will verbalize/demonstrate understanding of assistive devices/modifications for ADL. 3=Patient will improve strength/tolerance for activity to enable patient to perform ADL's. OT Education/Plan Discharge Recommendations Plan/Recommendations: Discharge/Goals Met Treatment Plan/Plan of Care Patient would benefit from OT for education, treatment and training to promote independence in ADL's, mobility, safety and/or upper extremity function for ADL's. Plan of Care: ADL Retraining, Concurrent Therapy, Functional Mobility, Group Exercise/Act as Ind, UE Funct Exercise/Act Treatment Duration: Apr 25, 2023 Frequency: 3 times per week (3-5 times per week) Estimated Hrs Per Day: .25 hour per day Agreement: Yes Rehab Potential: Fair Time Start Time: 09:21 Stop Time: 09:44 DATE: Apr 24, 2023 Total Time Billed (hr/min): 23 Billed Treatment Time ADL 23 min BETSEY GARCIA OT Apr 24, 2023 12:44
--- NOTE | 2023-04-24 13:14 | Progress Note ---
CAMERON NORMAN 04/24/23 1314: Subjective Date Seen by a Provider: Apr 24, 2023 Time Seen by a Provider: 09:00 Subjective/Events-last exam Our patient is a 72 yo M who was admitted to the hospital for right lower lobe pneumonia. He states that he is feeling good this morning but is still short of breath with exertion and occasionally while speaking. He notes no issues with his bowel movements, is not in any pain currently. Denies chest pain, abdominal pain, nausea, vomiting, diarrhea, constipation, chills, or cough. He does note difficulty starting a urinary stream that is dependent on his body position. He has not been using his bipap at night and his oxygen has returned to his home level. Hospital Course Our patient is a 72 yo M with a history of oxygen dependent COPD, hypertension, chronic kidney disease, CHF, and insulin dependent type II diabetes who was admitted to the hospital for right lower lobe pneumonia. Upon admission, he was started on vancomycin and meropenem as well as dexamethasone IV. In addition, he was administered multiple pulmonary medications incuding: tiotropium bromide, fluticasone, and albuterol. He required an increased supply of oxygen on admission and was started off on Bipap for respiratory support for hypercapnic respiratory failure. Throughout his stay, his breathing continued to improve but his edema was difficult to manage due to his kidney disease and concern for causing further damage through diuresis. On a few occasions, his blood pressure reached the level of hypertensive urgency without a change in his symptoms. For these instances, hydralazine was given. A few days after admission, his vancomycin trough levels were shown to be high so this was paused for a couple days before resumption. His IV dexamethasone was transitioned to prednisone soon after admission. Over the course of his stay, his glucose levels have been somewhat difficult to control due to concomitant steroid administration. After a few days of treatment, he has returned to his baseline oxygen use levels but remains short of breath on exertion. He is planned to be discharged with home health assistance. Review of Systems General: No Chills, No Night Sweats; Fatigue; No Malaise HEENT: No Head Aches, No Visual Changes Pulmonary: Dyspnea (on exertion); No Cough, No Pleuritic Chest Pain Cardiovascular: Edema; No: Chest Pain, Palpitations, Lt Headedness Gastrointestinal: No: Nausea, Vomiting, Abdominal Pain, Diarrhea, Constipation Genitourinary: No Dysuria, No Frequency Neurological: Weakness; No: Numbness, Change in speech, Confusion Objective Exam Last Set of Vital Signs Vital Signs Date Time Temp Pulse Resp B/P (MAP) Pulse Ox O2 Delivery O2 Flow Rate FiO2 04/24/23 12:02 36.9 71 20 147/65 (92) 100 Nasal Cannula 4.00 04/20/23 20:27 30 Capillary Refill : Less Than 3 Seconds I&O Intake and Output 04/24/23 00:00 Intake Total 1870 ml Output Total 2425 ml Balance -555 ml Intake Oral 1870 ml Output Urine Total 2425 ml General: Alert, Oriented X3, Cooperative, No Acute Distress HEENT: Atraumatic, PERRLA, EOMI Neck: Supple, No JVD, No Thyromegaly Lungs: Normal Air Movement, Other (rhonchi noted in right lung) Heart: Regular Rate, Normal S1, Normal S2, No Murmurs Abdomen: Normal Bowel Sounds, Soft, No Tenderness Extremities: No Clubbing, No Cyanosis, Normal Pulses, Other (3+ pitting edema of lower legs bilaterally) Skin: No Rashes, No Breakdown, No Significant Lesion Neuro: Normal Speech, Normal Tone Psych/Mental Status: Mental Status NL, Mood NL Results Lab Laboratory Tests 04/23/23 15:45: Glucometer 250H 04/23/23 20:14: Glucometer 237H 04/24/23 05:40: Glucometer 119H, White Blood Count 16.1H, Red Blood Count 2.77L, Hemoglobin 7.5L , Hematocrit 24L, Mean Corpuscular Volume 86, Mean Corpuscular Hemoglobin 27, Mean Corpuscular Hemoglobin Concent 32, Red Cell Distribution Width 16.9H, Platelet Count 224, Mean Platelet Volume 11.0, Immature Granulocyte % (Auto) 1, Neutrophils (%) (Auto) 83H, Lymphocytes (%) (Auto) 8L, Monocytes (%) (Auto) 6, Eosinophils (%) (Auto) 1, Basophils (%) (Auto) 0, Neutrophils # (Auto) 13.5H, Lymphocytes # (Auto) 1.4, Monocytes # (Auto) 1.0, Eosinophils # (Auto) 0.2, Basophils # (Auto) 0.0, Immature Granulocyte # (Auto) 0.1, Neutrophils % (Manual) 86, Lymphocytes % (Manual) 8, Monocytes % (Manual) 5, Eosinophils % (Manual) 1, Hypochromasia SLIGHT, Anisocytosis MODERATE, Helmet Cells SLIGHT, Whiting Cells SLIGHT, Sodium Level 138, Potassium Level 4.6, Chloride Level 105, Carbon Dioxide Level 24, Anion Gap 9, Blood Urea Nitrogen 72H, Creatinine 2.19H, Estimat Glomerular Filtration Rate 32, BUN/Creatinine Ratio 33, Glucose Level 126H, Calcium Level 8.3L, Corrected Calcium 9.4, Total Bilirubin 0.2, Aspartate Amino Transf (AST/SGOT) 11, Alanine Aminotransferase (ALT/SGPT) 13, Alkaline Phosphatase 49, Total Protein 4.9L, Albumin 2.6L 04/24/23 11:15: Glucometer 139H Microbiology 04/18/23 Blood Culture - Final, Complete No growth 04/18/23 MRSA Screen - Final, Complete MRSA not isolated Meds As indicated in medications list Radiology No further imaging studies conducted Assessment/Plan Assessment/Plan Assess & Plan/Chief Complaint Right Lower Lobe Pneumonia of unknown etiology - improved Hypercapnic Respiratory Failure COPD exacerbation -Condition continues to improve -Course of meropenem has been completed -Vancomycin has been resumed following trough levels within acceptable range -Continue prednisone -Continue tiotropium, fluticasone, and albuterol -Continue oxygen supplementation as needed -Continue Bipap at night as tolerated -Unfortunately, the patient will be unable to enter into inpatient rehab due to lack of insurance coverage by [facility] insurance. -He will instead begin home health services on discharge HTN -Clonidine increased to 0.1 mg 3 times daily -Continue coreg 12.5 mg BID with meals -Continue norvasc 5 mg daily -Hydralazine is available in instances of hypertensive urgency Chronic kidney disease -BUN and creatinine were elevated at admission with an eGFR of 40 -Kidney function has declined since admission, cardiology recommends holding furosemide for the time being CHF -Initial BNP was 377.3 with bilateral, 3+ pitting edema of the shins -Continue daily exams to assess fluid status, hold furosemide to prevent further kidney injury -Patient has a left bundle branch block -Will be seen for a stress test as an outpatient Hyperkalemia - resolved -Initial potassium was increased at 5.5 -Levels have since returned to acceptable levels -Carefully monitor with daily chemistries Type II diabetes (insulin dependant) -Sliding scale insulin with Novolog -Novolin 10 units as needed -Levemir 2x daily -Glucose levels acutely worsened, likely due to steroids -Continue to monitor with accuchecks and serial chemistries Normocytic Anemia -Initial Hgb was 8.3, this likely of chronic disease -Hgb has decreased somewhat since admission, this is likely dilutional -Continue to monitor with serial CBCs Bowel regimen available as needed for constipation DVT prophylaxis: lovenox 40 mg Diet: low sodium Disposition: Prepare to discharge with home health services CT MCDUFFIE DO 04/25/23 0435: Supervisory-Addendum Brief Verification & Attestation Participated in pt care: history, MDM, physical Personally performed: exam, history, MDM, supervision of care Care discussed with: Medical Student Procedures: n/a Results interpretation: Verified all documentation Verification and Attestation of Medical Student E/M Service A medical student performed and documented this service in my presence. I reviewed and verified all information documented by the medical student and made modifications to such information, when appropriate. I personally performed the physical exam and medical decision making. Ct Mcduffie, Apr 25, 2023,04:35 CAMERON NORMAN Apr 24, 2023 13:14 CT MCDUFFIE DO Apr 25, 2023 04:35
[2023-04-24 15:09] VITALS: BP 142/62
[2023-04-24 15:44] VITALS: BP 123/58
[2023-04-24] MEDS: ENOXAPARIN 40 MG/0.4 ML SYRINGE SC SCH (15:49)
[2023-04-24] MEDS: TAMSULOSIN 0.4 MG (FLOMAX) CAP PO SCH (17:49)
[2023-04-24] MEDS: MONTELUKAST 10 MG (SINGULAIR) TAB PO SCH (17:49)
[2023-04-24 19:22] VITALS: BP 140/62
[2023-04-24 23:16] VITALS: BP 120/60
[2023-04-25] MEDS: RT-ALBUTEROL/IPRATROPIUM 3 ML (DUONEB) VIAL INH SCH ×4 (02:41→20:50)
[2023-04-25 03:33] VITALS: BP 128/60
[2023-04-25] MEDS: inSUlin ASPART (NovoLOG) 1 UNIT/0.01 ML (CHARGE PER UNIT) SC SCH ×4 (05:42→21:13)
[2023-04-25] MEDS: predniSONE 20 MG TAB PO SCH (05:42)
[2023-04-25] MEDS: PANTOPRAZOLE 40 MG (PROTONIX) TAB PO SCH (05:42)
[2023-04-25 06:31] LABS: BASOPHILS % (AUTO) 0 % (0-10); EOSINOPHILS # (AUTO) 0.2 10^3/uL (0.0-0.3); EOSINOPHILS % (AUTO) 1 % (0-10); HEMATOCRIT 26 % (40-54); HEMOGLOBIN 8.2 g/dL (13.3-17.7); LYMPHOCYTES # (AUTO) 1.2 10^3/uL (1.0-4.0); LYMPHOCYTES % (AUTO) 8 % (12-44); MEAN CORPUSCULAR HEMOGLOBIN 28 pg (25-34); MEAN CORPUSCULAR HGB CONC 32 g/dL (32-36); MEAN CORPUSCULAR VOLUME 87 fL (80-99); MEAN PLATELET VOLUME 10.7 fL (9.0-12.2); MONOCYTES # (AUTO) 0.9 10^3/uL (0.0-1.0); MONOCYTES % (AUTO) 6 % (0-12); NEUTROPHILS # (AUTO) 13.5 10^3/uL (1.8-7.8); NEUTROPHILS % (AUTO) 85 % (42-75); PLATELET COUNT 235 10^3/uL (130-400); WHITE BLOOD COUNT 15.9 10^3/uL (4.3-11.0)
[2023-04-25 06:57] LABS: ALBUMIN 2.8 GM/DL (3.2-4.5); POTASSIUM 5.7 MMOL/L (3.6-5.0)
[2023-04-25 06:59] LABS: CALCIUM 8.2 MG/DL (8.5-10.1)
[2023-04-25 07:00] LABS: TOTAL PROTEIN 5.7 GM/DL (6.4-8.2)
[2023-04-25 07:01] LABS: BILIRUBIN,TOTAL 0.2 MG/DL (0.1-1.0)
[2023-04-25 07:03] LABS: CREATININE SERUM 2.57 MG/DL (0.60-1.30)
[2023-04-25 07:45] VITALS: BP 148/62
[2023-04-25] MEDS ORDERED: SODIUM POLYSTYRENE POWDER 15 GM BOTTLE PO ONE (08:00)
--- NOTE | 2023-04-25 08:02 | Progress Note ---
Subjective Date Seen by a Provider: Apr 25, 2023 Time Seen by a Provider: 11:00 Subjective/Events-last exam No major issues No pain reported Potassium is high so initiated meds at bedside Slow recovery Review of Systems General: Fatigue Pulmonary: Dyspnea Objective Exam Last Set of Vital Signs Vital Signs Date Time Temp Pulse Resp B/P (MAP) Pulse Ox O2 Delivery O2 Flow Rate FiO2 04/25/23 07:45 36.7 74 20 148/62 (90) 98 High Flow N/C 4.00 04/24/23 15:09 36 Capillary Refill : Less Than 3 Seconds I&O Intake and Output 04/25/23 00:00 Intake Total 1760 ml Output Total 2150 ml Balance -390 ml Intake Oral 1760 ml Output Urine Total 2150 ml # Bowel Movements 2 General: Alert, Oriented X3, Cooperative, No Acute Distress Lungs: Clear to Auscultation, Normal Air Movement Psych/Mental Status: Mental Status NL, Mood NL Results Lab Laboratory Tests 04/24/23 11:15: Glucometer 139H 04/24/23 15:46: Glucometer 226H 04/24/23 20:21: Glucometer 345H 04/25/23 05:39: Glucometer 229H 04/25/23 06:00: White Blood Count 15.9H, Red Blood Count 2.96L, Hemoglobin 8.2L, Hematocrit 26L, Mean Corpuscular Volume 87, Mean Corpuscular Hemoglobin 28, Mean Corpuscular Hemoglobin Concent 32, Red Cell Distribution Width 17.2H, Platelet Count 235, Mean Platelet Volume 10.7, Immature Granulocyte % (Auto) 1, Neutrophils (%) (Auto) 85H, Lymphocytes (%) (Auto) 8L, Monocytes (%) (Auto) 6, Eosinophils (%) (Auto) 1, Basophils (%) (Auto) 0, Neutrophils # (Auto) 13.5H, Lymphocytes # (Auto) 1.2, Monocytes # (Auto) 0.9, Eosinophils # (Auto) 0.2, Basophils # (Auto) 0.0, Immature Granulocyte # (Auto) 0.1, Sodium Level 135, Potassium Level 5.7H, Chloride Level 104, Carbon Dioxide Level 22, Anion Gap 9, Blood Urea Nitrogen 78H, Creatinine 2.57H, Estimat Glomerular Filtration Rate 26, BUN/Creatinine Ratio 30, Glucose Level 212H, Calcium Level 8.2L, Corrected Calcium 9.2, Total Bilirubin 0.2, Aspartate Amino Transf (AST/SGOT) 20, Alanine Aminotransferase (ALT/SGPT) 17, Alkaline Phosphatase 51, Total Protein 5.7L, Albumin 2.8L Microbiology 04/18/23 Blood Culture - Final, Complete No growth 04/18/23 MRSA Screen - Final, Complete MRSA not isolated Assessment/Plan Assessment/Plan Assess & Plan/Chief Complaint Right Lower Lobe Pneumonia of unknown etiology - improved Hypercapnic Respiratory Failure COPD exacerbation -Condition continues to improve -Continue treatment with meropenem, on bag -Vancomycin discontinued -Subsequent trough on 04/22 remained high but had fallen to acceptable ranges on 04/23 -Vanc levels could be partially responsible for the acute drop in the patient's kidney function -Continue prednisone -Continue tiotropium, fluticasone, and albuterol -Continue oxygen supplementation as needed -Continue Bipap at night as tolerated HTN -Clonidine increased to 0.1 mg 3 times daily -Continue coreg 12.5 mg BID with meals -Continue norvasc 5 mg daily -Hydralazine is available in instances of hypertensive urgency Chronic kidney disease -BUN and creatinine were elevated at admission with an eGFR of 40 -Kidney function has declined since admission, cardiology recommends holding furosemide for the time being CHF -Initial BNP was 377.3 with bilateral, 3+ pitting edema of the shins -Continue daily exams to assess fluid status, hold furosemide to prevent further kidney injury -Patient has a left bundle branch block -Will be seen for a stress test as an outpatient Hyperkalemia - resolved -Initial potassium was increased at 5.5 -Levels have since returned to acceptable levels -Carefully monitor with daily chemistries Type II diabetes (insulin dependant) -Sliding scale insulin with Novolog -Novolin 10 units as needed -Levemir 2x daily -Glucose levels acutely worsened, likely due to steroids -Continue to monitor with accuchecks and serial chemistries Normocytic Anemia -Initial Hgb was 8.3, this likely of chronic disease -Hgb has decreased somewhat since admission, this is likely dilutional -Continue to monitor with serial CBCs MARY MCDUFFIE DO Apr 25, 2023 08:02
[2023-04-25] MEDS: CLOPIDOGREL 75 MG TABLET PO SCH (08:05)
[2023-04-25] MEDS: ASPIRIN enteric coated 81MG TABLET PO SCH (08:05)
[2023-04-25] MEDS: DOCUSATE SODIUM 100 MG CAPSULE PO SCH ×2 (08:05→21:13)
[2023-04-25] MEDS: FOLIC ACID 1 MG TAB PO SCH (08:05)
[2023-04-25] MEDS: CYANOCOBALAMIN 1,000 MCG TABLET PO SCH (08:05)
[2023-04-25] MEDS: FUROSEMIDE 20 MG (LASIX) TAB PO SCH (08:05)
[2023-04-25] MEDS: amLODIPine 5 MG TABLET PO SCH (08:05)
[2023-04-25] MEDS: SENNOSIDES 8.6 MG (SENOKOT) TAB PO SCH ×2 (08:05→21:13)
[2023-04-25] MEDS: carvediloL 12.5 MG TABLET PO SCH ×2 (08:05→17:42)
[2023-04-25] MEDS: cloNIDine 0.1 MG TABLET PO SCH ×3 (08:05→21:12)
[2023-04-25] MEDS: FLUTICASONE NASAL SPRAY (FLONASE) 16 GM BTL NS SCH (08:06)
[2023-04-25] MEDS: ALOGLIPTIN 6.25 MG PO SCH (08:06)
[2023-04-25] MEDS: TIOTROPIUM INH 4 GM (SPIRIVA Respimat) IH SCH (08:19)
[2023-04-25] MEDS: FLUTICASONE/VILANTEROL 200 MCG 14'S (BREO) IH SCH (08:19)
--- NOTE | 2023-04-25 10:42 | Cardiac Procedure Note-CS/ASA ---
Pre-Procedure Note Pre-Op Procedure Note Date of Available H&P: Apr 25, 2023 Date H&P Reviewed: Apr 25, 2023 Time H&P Reviewed: 10:41 History & Physical: H&P Reviewed, Patient Examed, No changes noted Pre-Operative Diagnosis: coronary artery disease, peripheral arterial disease Moderate Sedation PreProcedure Time 10:41 ASA Score 3 Airway Lungs Heart ASA score ASA 1: a normal healthy patient ASA 2: a patient with a mild systemic disease (mid diabetes, controlled hypertension, obesity ASA 3: a patient with a severe systemic disease that limits activity (angina, COPD, prior Myocardial infarction) ASA 4: a patient with an incapacitating disease that is a constant threat to life (CHF, renal failure) ASA 5: a moribund patient not expected to survive 24 hrs. (ruptured aneurysm) ASA 6: a declared brain- patient whose organs are being harvested. For emergent operations, add the letter E after the classification Mallampati Classification Grade 3 Sedation Plan Analgesia, Amnesia, Plan communicated to team members, Discussed options with patient/fam, Discussed risks with patient/fam The patient is an appropriate candidate to undergo the planned procedure, sedation, and anesthesia. The patient immediately re-assessed prior to indication. FADUMO TALAVERA MD Apr 25, 2023 10:42
[2023-04-25 11:30] VITALS: BP 137/63
--- NOTE | 2023-04-25 12:27 | Cardiology Progress Note ---
Subjective Date Seen by Provider: Apr 25, 2023 Time Seen by Provider: 11:00 Subjective/Events-last exam Patient was seen earlier today, was sleeping. Objective-Cardiology Exam Last Set of Vital Signs Vital Signs 04/24/23 04/25/23 04/25/23 15:09 07:45 08:00 Temp 36.7 Pulse 74 Resp 20 B/P (MAP) 148/62 (90) Pulse Ox 98 O2 Delivery Nasal Cannula O2 Flow Rate 4.00 FiO2 36 I&O Intake and Output 04/25/23 00:00 Intake Total 1760 ml Output Total 2150 ml Balance -390 ml Intake Oral 1760 ml Output Urine Total 2150 ml # Bowel Movements 2 General: No Acute Distress HEENT: Atraumatic, PERRLA, EOMI Neck: Supple, No JVD, No Thyromegaly Lungs: Normal Air Movement, Other (rhonchi noted in right lung) Heart: Regular Rate, Normal S1, Normal S2, No Murmurs Abdomen: Normal Bowel Sounds, Soft, No Tenderness Extremities: No Clubbing, No Cyanosis, Normal Pulses, Other (3+ pitting edema of lower legs bilaterally) Skin: No Rashes, No Breakdown, No Significant Lesion Neuro: Normal Tone Psych/Mental Status: Mental Status NL, Mood NL Results Lab Laboratory Tests 04/25/23 06:00 A/P-Cardiology Admission Diagnosis Acute on chronic respiratory failure AE COPD CAD PAD Assessment/Plan Acute on chronic respiratory failure, likely COPD exacerbation and pneumonia. Contribution from acute on chronic diastolic congestive heart failure. Improving. Hypertension, Clonidine increased to 0.1 mg 3 times daily Blood pressure better controlled, continue to monitor. DM, management per medical services. CAD, continue antiplatelet therapy. PAD, no active issues. Acute on chronic diastolic congestive heart failure, given Lasix in the ER. Continue on current medications and continue to monitor. Stage IV chronic kidney disease, monitor kidney function very closely. Avoid nephrotoxins. Continue to monitor. Ex tobaccoism, patient recently quit smoking. Encourage to continue with smoking cessation. Mildly positive troponin, likely type II SD due to acute respiratory failure. However patient's last stress test was in 2020. He has a left bundle branch block. Will plan for stress test as an outpatient. Left bundle branch block Moderate to severe back pain. FADUMO TALAVERA MD Apr 25, 2023 12:27
[2023-04-25 15:31] VITALS: BP 128/63
[2023-04-25] MEDS: ENOXAPARIN 30 MG/0.3 ML SYRINGE SC SCH (15:40)
[2023-04-25] MEDS: MONTELUKAST 10 MG (SINGULAIR) TAB PO SCH (17:42)
[2023-04-25] MEDS: TAMSULOSIN 0.4 MG (FLOMAX) CAP PO SCH (17:42)
[2023-04-25 19:18] VITALS: BP 128/65
[2023-04-26] VITALS (7 sets, daily range): BP systolic 115–160; BP diastolic 62–79
[2023-04-26] MEDS: inSUlin ASPART (NovoLOG) 1 UNIT/0.01 ML (CHARGE PER UNIT) SC SCH ×4 (05:23→21:21)
[2023-04-26] MEDS: RT-ALBUTEROL/IPRATROPIUM 3 ML (DUONEB) VIAL INH SCH ×4 (05:23→21:36)
[2023-04-26 05:53] LABS: BASOPHILS % (AUTO) 0 % (0-10); EOSINOPHILS # (AUTO) 0.2 10^3/uL (0.0-0.3); EOSINOPHILS % (AUTO) 2 % (0-10); HEMATOCRIT 25 % (40-54); HEMOGLOBIN 7.9 g/dL (13.3-17.7); LYMPHOCYTES # (AUTO) 1.1 10^3/uL (1.0-4.0); LYMPHOCYTES % (AUTO) 7 % (12-44); MEAN CORPUSCULAR HEMOGLOBIN 27 pg (25-34); MEAN CORPUSCULAR HGB CONC 32 g/dL (32-36); MEAN CORPUSCULAR VOLUME 86 fL (80-99); MEAN PLATELET VOLUME 11.1 fL (9.0-12.2); MONOCYTES # (AUTO) 1.1 10^3/uL (0.0-1.0); MONOCYTES % (AUTO) 7 % (0-12); NEUTROPHILS # (AUTO) 12.8 10^3/uL (1.8-7.8); NEUTROPHILS % (AUTO) 83 % (42-75); PLATELET COUNT 229 10^3/uL (130-400); WHITE BLOOD COUNT 15.4 10^3/uL (4.3-11.0)
[2023-04-26 06:03] LABS: ALBUMIN 2.9 GM/DL (3.2-4.5); POTASSIUM 4.7 MMOL/L (3.6-5.0)
[2023-04-26 06:04] LABS: CALCIUM 8.2 MG/DL (8.5-10.1)
[2023-04-26 06:06] LABS: TOTAL PROTEIN 5.2 GM/DL (6.4-8.2)
[2023-04-26] MEDS: PANTOPRAZOLE 40 MG (PROTONIX) TAB PO SCH (06:06)
[2023-04-26] MEDS: predniSONE 20 MG TAB PO SCH (06:06)
[2023-04-26 06:07] LABS: BILIRUBIN,TOTAL 0.2 MG/DL (0.1-1.0)
[2023-04-26 06:09] LABS: CREATININE SERUM 2.16 MG/DL (0.60-1.30)
--- NOTE | 2023-04-26 06:44 | Progress Note ---
Subjective Date Seen by a Provider: Apr 26, 2023 Time Seen by a Provider: 11:00 Subjective/Events-last exam No major issues LE edema discussed and this is positional edema so will initiate SHAGUFTA wraps O2 maintained at bedside who appears to be overwhelmed with his issues Review of Systems General: Fatigue Pulmonary: Dyspnea Cardiovascular: Edema Objective Exam Last Set of Vital Signs Vital Signs Date Time Temp Pulse Resp B/P (MAP) Pulse Ox O2 Delivery O2 Flow Rate FiO2 04/26/23 03:55 36.1 69 16 130/65 (86) 100 High Flow N/C 2.00 2.00 04/24/23 15:09 36 Capillary Refill : Less Than 3 Seconds I&O Intake and Output0 04/26/23 00:00 Intake Total 1880 ml Output Total 2370 ml Balance -490 ml Intake Oral 1880 ml Output Urine Total 2370 ml General: Alert, Oriented X3, Cooperative, No Acute Distress Lungs: Clear to Auscultation, Normal Air Movement Heart: Regular Rate, Normal S1, Normal S2, No Murmurs Extremities: Other Psych/Mental Status: Mental Status NL, Mood NL Results Lab Laboratory Tests 04/25/23 10:36: Glucometer 150H 04/25/23 15:23: Glucometer 175H 04/25/23 20:07: Glucometer 210H 04/26/23 05:11: Glucometer 189H 04/26/23 05:24: White Blood Count 15.4H, Red Blood Count 2.89L, Hemoglobin 7.9L, Hematocrit 25L, Mean Corpuscular Volume 86, Mean Corpuscular Hemoglobin 27, Mean Corpuscular Hemoglobin Concent 32, Red Cell Distribution Width 17.4H, Platelet Count 229, Mean Platelet Volume 11.1, Immature Granulocyte % (Auto) 1, Neutrophils (%) (Auto) 83H, Lymphocytes (%) (Auto) 7L, Monocytes (%) (Auto) 7, Eosinophils (%) (Auto) 2, Basophils (%) (Auto) 0, Neutrophils # (Auto) 12.8H, Lymphocytes # (Auto) 1.1, Monocytes # (Auto) 1.1H, Eosinophils # (Auto) 0.2, Basophils # (Au to) 0.0, Immature Granulocyte # (Auto) 0.1, Sodium Level 137, Potassium Level 4.7, Chloride Level 104, Carbon Dioxide Level 24, Anion Gap 9, Blood Urea Nitrogen 77H, Creatinine 2.16H, Estimat Glomerular Filtration Rate 32, BUN/Creatinine Ratio 36, Glucose Level 171H, Calcium Level 8.2L, Corrected Ca lcium 9.1, Total Bilirubin 0.2, Aspartate Amino Transf (AST/SGOT) 13, Alanine Aminotransferase (ALT/SGPT) 16, Alkaline Phosphatase 51, Total Protein 5.2L, Albumin 2.9L Microbiology 04/18/23 Blood Culture - Final, Complete No growth 04/18/23 MRSA Screen - Final, Complete MRSA not isolated Assessment/Plan Assessment/Plan Assess & Plan/Chief Complaint Right Lower Lobe Pneumonia of unknown etiology - improved Hypercapnic Respiratory Failure COPD exacerbation HTN Chronic kidney disease -BUN and creatinine were elevated at admission with an eGFR of 40 -Kidney function has declined since admission, cardiology recommends holding furosemide for the time being CHF -Initial BNP was 377.3 with bilateral, 3+ pitting edema of the shins -Continue daily exams to assess fluid status, hold furosemide to prevent further kidney injury -Patient has a left bundle branch block -Will be seen for a stress test as an outpatient Hyperkalemia - resolved -Initial potassium was increased at 5.5 -Levels have since returned to acceptable levels -Carefully monitor with daily chemistries Type II diabetes (insulin dependant) -Sliding scale insulin with Novolog -Novolin 10 units as needed -Levemir 2x daily -Glucose levels acutely worsened, likely due to steroids -Continue to monitor with accuchecks and serial chemistries Normocytic Anemia -Initial Hgb was 8.3, this likely of chronic disease -Hgb has decreased somewhat since admission, this is likely dilutional -Continue to monitor with serial CBCs MARY MCDUFFIE DO Apr 26, 2023 06:44
[2023-04-26] MEDS: FUROSEMIDE 20 MG (LASIX) TAB PO SCH (09:01)
[2023-04-26] MEDS: amLODIPine 5 MG TABLET PO SCH (09:01)
[2023-04-26] MEDS: carvediloL 12.5 MG TABLET PO SCH ×2 (09:01→17:26)
[2023-04-26] MEDS: ASPIRIN enteric coated 81MG TABLET PO SCH (09:01)
[2023-04-26] MEDS: cloNIDine 0.1 MG TABLET PO SCH ×3 (09:01→21:21)
[2023-04-26] MEDS: FOLIC ACID 1 MG TAB PO SCH (09:01)
[2023-04-26] MEDS: SENNOSIDES 8.6 MG (SENOKOT) TAB PO SCH ×2 (09:01→20:45)
--- NOTE | 2023-04-26 09:01 | Cardiology Progress Note ---
Subjective Date Seen by Provider: Apr 26, 2023 Time Seen by Provider: 08:59 Subjective/Events-last exam Patient was seen at bedside, sitting comfortably, feeling better Still having dyspnea Review of Systems General: No Chills, No Night Sweats; Fatigue; No Malaise, No Appetite, No Other HEENT: No Head Aches, No Visual Changes, No Eye Pain, No Ear Pain, No Dysphasia, No Sinus Congestion, No Post Nasal Drip, No Sore Throat, No Other Pulmonary: Dyspnea; No Cough, No Pleuritic Chest Pain, No Other Cardiovascular: No: Chest Pain, Palpitations, Orthopnea, Paroxysmal Noc. Dyspnea, Edema, Lt Headedness, Other Objective-Cardiology Exam Last Set of Vital Signs Vital Signs 04/24/23 04/26/23 15:09 08:14 Temp 36.1 Pulse 68 Resp 19 B/P (MAP) 160/72 (101) Pulse Ox 98 O2 Delivery High Flow N/C O2 Flow Rate 4.00 FiO2 36 I&O Intake and Output 04/26/23 00:00 Intake Total 1880 ml Output Total 2370 ml Balance -490 ml Intake Oral 1880 ml Output Urine Total 2370 ml General: Alert, Oriented X3, Cooperative, No Acute Distress HEENT: Atraumatic, PERRLA, EOMI Neck: Supple, No JVD, No Thyromegaly Lungs: Clear to Auscultation, Normal Air Movement Heart: Regular Rate, Normal S1, Normal S2, No Murmurs Abdomen: Normal Bowel Sounds, Soft, No Tenderness Extremities: No Clubbing, No Cyanosis, Normal Pulses, Other (3+ pitting edema of lower legs bilaterally) Skin: No Rashes, No Breakdown, No Significant Lesion Neuro: Normal Tone Psych/Mental Status: Mental Status NL, Mood NL Results Lab Laboratory Tests 04/26/23 05:24 A/P-Cardiology Admission Diagnosis Acute on chronic respiratory failure AE COPD CAD PAD Assessment/Plan Acute on chronic respiratory failure, likely COPD exacerbation and pneumonia. Contribution from acute on chronic diastolic congestive heart failure. Improving. Hypertension, Clonidine increased to 0.1 mg 3 times daily Coreg 12.5 mg twice daily Norvasc 5 mg daily Tolerating current medication well, blood pressure is still having some elevation due to the steroid use Continue on current medication monitor blood pressure DM, management per medical services. CAD, continue antiplatelet therapy. PAD, no active issues. Acute on chronic diastolic congestive heart failure, given Lasix in the ER. Continue on current medications and continue to monitor. Stage IV chronic kidney disease, monitor kidney function very closely. Avoid nephrotoxins. Continue to monitor. Ex tobaccoism, patient recently quit smoking. Encourage to continue with smoking cessation. Mildly positive troponin, likely type II [place] due to acute respiratory failure. However patient's last stress test was in 2020. He has a left bundle branch block. Will plan for stress test as an outpatient. Left bundle branch block Moderate to severe back pain. FADUMO TALAVERA MD Apr 26, 2023 09:01
[2023-04-26] MEDS: DOCUSATE SODIUM 100 MG CAPSULE PO SCH ×2 (09:02→20:45)
[2023-04-26] MEDS: CYANOCOBALAMIN 1,000 MCG TABLET PO SCH (09:02)
[2023-04-26] MEDS: CLOPIDOGREL 75 MG TABLET PO SCH (09:02)
[2023-04-26] MEDS: FLUTICASONE NASAL SPRAY (FLONASE) 16 GM BTL NS SCH (09:04)
[2023-04-26] MEDS: ALOGLIPTIN 6.25 MG PO SCH (09:07)
[2023-04-26] MEDS: FLUTICASONE/VILANTEROL 200 MCG 14'S (BREO) IH SCH (09:26)
[2023-04-26] MEDS: TIOTROPIUM INH 4 GM (SPIRIVA Respimat) IH SCH (09:26)
[2023-04-26] MEDS: ENOXAPARIN 30 MG/0.3 ML SYRINGE SC SCH (15:35)
[2023-04-26] MEDS: MONTELUKAST 10 MG (SINGULAIR) TAB PO SCH (17:26)
[2023-04-26] MEDS: TAMSULOSIN 0.4 MG (FLOMAX) CAP PO SCH (17:26)
[2023-04-27] MEDS: RT-ALBUTEROL/IPRATROPIUM 3 ML (DUONEB) VIAL INH SCH ×3 (01:53→22:13)
[2023-04-27 03:21] VITALS: BP 120/54
[2023-04-27] MEDS: inSUlin ASPART (NovoLOG) 1 UNIT/0.01 ML (CHARGE PER UNIT) SC SCH ×4 (05:16→20:09)
[2023-04-27 06:03] LABS: BASOPHILS % (AUTO) 0 % (0-10); EOSINOPHILS # (AUTO) 0.2 10^3/uL (0.0-0.3); EOSINOPHILS % (AUTO) 2 % (0-10); HEMATOCRIT 24 % (40-54); HEMOGLOBIN 7.6 g/dL (13.3-17.7); LYMPHOCYTES # (AUTO) 1.3 10^3/uL (1.0-4.0); LYMPHOCYTES % (AUTO) 9 % (12-44); MEAN CORPUSCULAR HEMOGLOBIN 27 pg (25-34); MEAN CORPUSCULAR HGB CONC 31 g/dL (32-36); MEAN CORPUSCULAR VOLUME 87 fL (80-99); MEAN PLATELET VOLUME 11.2 fL (9.0-12.2); MONOCYTES # (AUTO) 1.1 10^3/uL (0.0-1.0); MONOCYTES % (AUTO) 8 % (0-12); NEUTROPHILS # (AUTO) 12.2 10^3/uL (1.8-7.8); NEUTROPHILS % (AUTO) 82 % (42-75); PLATELET COUNT 218 10^3/uL (130-400); WHITE BLOOD COUNT 14.9 10^3/uL (4.3-11.0)
[2023-04-27 06:27] LABS: ALBUMIN 2.9 GM/DL (3.2-4.5); BILIRUBIN,TOTAL 0.2 MG/DL (0.1-1.0); CALCIUM 8.2 MG/DL (8.5-10.1); CREATININE SERUM 2.34 MG/DL (0.60-1.30); POTASSIUM 5.2 MMOL/L (3.6-5.0); TOTAL PROTEIN 5.2 GM/DL (6.4-8.2)
--- NOTE | 2023-04-27 06:44 | Progress Note - Hospitalist ---
Subjective HPI/CC On Admission Date Seen by Provider: Apr 27, 2023 Time Seen by Provider: 11:00 Our patient is a 72 yo M with a past medical history of COPD, CHF, kidney failure, type II diabetes, chronic anticoagulation, and multiple myocardial infarctions requiring stent placement who is admitted for right lower lobe pneumonia. Earlier this morning, he was using his walker to ambulate to the bedroom to check on his when his "knees gave out" and he fell on them. He denies losing consciousness, hitting his head, or any other injury. Almost immediately after his fall he became severely short of breath and felt like he was suffocating. He denies chest pain, pressure, palpitations, diaphoresis, nausea, or vomiting. He typically uses 3 L of oxygen at home due to his COPD but has had to use 4 L for the past few days. He denies cough, fever, chills, or recent sick contacts. His shortness of breath is improved with bipap and albuterol and worsened with activity. He notes multiple prior similar occurrences as well as multiple recent hospitalizations due to his multitude of medical conditions. He does not use a bipap or cpap for sleep. He is insulin dependant but has not been using any recently due to multiple occurrences of hypoglycemia. He has a long smoking history but quit back in January of this year. Before arrival to the ER, he was administered 2 duoneb treatments as well as 125 of solumedrol by EMS. When EMS arrived at his house, his oxygen saturation was 88% on 3 L NC. Upon arrival he was administered high-flow oxygen and labwork was drawn. The initial chest x-ray showed increasing consolidation in the right lung that could be infiltrate and/or atelectasis as well as diffuse interstitial thickening of the lower portions of both lungs that could be inflammatory or from pulmonary venous hypertension. Initial chest CT showed airspace and ground glass opacities in the lungs bilaterally without exclusion of underlying neoplasm. It also showed chronic scarring and bullous disease in the right lung apex as well as small pleural effusions. He was given furosemide and morphine as well as started on vancomycin and meropenem before being admitted as an inpatient. Subjective/Events-last exam Patient doing a lot better Hyperkalemia requiring Kayexalate Creatinine near baseline Patient has end-stage COPD and chronic kidney disease and chronic congestive heart failure making it very difficult to modify and improve prognosis Set for discharge tomorrow Edema is much improved with wide Daryn wraps Review of Systems General: Fatigue, Malaise Pulmonary: Dyspnea Cardiovascular: Edema Objective Exam Vital Signs Vital Signs Date Time Temp Pulse Resp B/P (MAP) Pulse Ox O2 Delivery O2 Flow Rate FiO2 04/27/23 12:11 36.6 80 18 120/63 (82) 99 High Flow N/C 4.00 04/24/23 15:09 36 Capillary Refill : Less Than 3 Seconds General Appearance: No Apparent Distress, WD/WN, Chronically ill Respiratory: Crackles, Decreased Breath Sounds Cardiovascular: Regular Rate, Rhythm Neurologic/Psychiatric: Alert, Oriented x3, No Motor/Sensory Deficits, Normal Mood/Affect Results/Procedures Lab Laboratory Tests 04/27/23 05:08 Patient resulted labs reviewed. Imaging: Reviewed Imaging Films, Reviewed Imaging Report Assessment/Plan Assessment and Plan Assess & Plan/Chief Complaint Assessment: Acute on chronic respiratory failure RLL PNA AECHF end stage CKD End stage COPD oxygen dependent Weakness DM Plan: Discharge home tomorrow with home health Unable to modify and improve prognosis Critical Care Critically Ill Patient MARY MCDUFFIE DO Apr 27, 2023 06:44
[2023-04-27] MEDS ORDERED: SODIUM POLYSTYRENE POWDER 15 GM BOTTLE PO ONE (06:45)
[2023-04-27] MEDS: predniSONE 20 MG TAB PO SCH (06:46)
[2023-04-27] MEDS: PANTOPRAZOLE 40 MG (PROTONIX) TAB PO SCH (06:46)
[2023-04-27] MEDS: FLUTICASONE/VILANTEROL 200 MCG 14'S (BREO) IH SCH (07:05)
[2023-04-27] MEDS: TIOTROPIUM INH 4 GM (SPIRIVA Respimat) IH SCH (07:06)
[2023-04-27 08:34] VITALS: BP 121/56
[2023-04-27] MEDS: FOLIC ACID 1 MG TAB PO SCH (09:26)
[2023-04-27] MEDS: cloNIDine 0.1 MG TABLET PO SCH ×3 (09:26→20:46)
[2023-04-27] MEDS: CLOPIDOGREL 75 MG TABLET PO SCH (09:26)
[2023-04-27] MEDS: FUROSEMIDE 20 MG (LASIX) TAB PO SCH (09:26)
[2023-04-27] MEDS: carvediloL 12.5 MG TABLET PO SCH ×2 (09:26→17:06)
[2023-04-27] MEDS: amLODIPine 5 MG TABLET PO SCH (09:26)
[2023-04-27] MEDS: DOCUSATE SODIUM 100 MG CAPSULE PO SCH ×2 (09:26→20:46)
[2023-04-27] MEDS: CYANOCOBALAMIN 1,000 MCG TABLET PO SCH (09:26)
[2023-04-27] MEDS: ASPIRIN enteric coated 81MG TABLET PO SCH (09:26)
[2023-04-27] MEDS: SENNOSIDES 8.6 MG (SENOKOT) TAB PO SCH ×2 (09:26→20:46)
[2023-04-27] MEDS: FLUTICASONE NASAL SPRAY (FLONASE) 16 GM BTL NS SCH (09:27)
[2023-04-27] MEDS: ALOGLIPTIN 6.25 MG PO SCH (09:27)
--- NOTE | 2023-04-27 10:24 | Cardiology Progress Note ---
Subjective Date Seen by Provider: Apr 27, 2023 Time Seen by Provider: 10:24 Subjective/Events-last exam Patient was seen at bedside, sitting comfortably, feeling better Review of Systems General: No Chills, No Night Sweats, No Fatigue, No Malaise, No Appetite, No Other HEENT: No Head Aches, No Visual Changes, No Eye Pain, No Ear Pain, No Dysphasia, No Sinus Congestion, No Post Nasal Drip, No Sore Throat, No Other Pulmonary: No Dyspnea, No Cough, No Pleuritic Chest Pain, No Other Cardiovascular: No: Chest Pain, Palpitations, Orthopnea, Paroxysmal Noc. Dyspnea, Edema, Lt Headedness, Other Objective-Cardiology Exam Last Set of Vital Signs Vital Signs 04/24/23 04/27/23 15:09 08:34 Temp 37.0 Pulse 86 Resp 19 B/P (MAP) 121/56 (77) Pulse Ox 100 O2 Delivery High Flow N/C O2 Flow Rate 4.00 FiO2 36 I&O l Intake and Output 04/27/23 00:00 Intake Total 3185 ml Output Total 2900 ml Balance 285 ml Intake Oral 3185 ml Output Urine Total 2900 ml General: Alert, Oriented X3, Cooperative, No Acute Distress HEENT: Atraumatic, PERRLA, EOMI Neck: Supple, No JVD, No Thyromegaly Lungs: Clear to Auscultation, Normal Air Movement Heart: Regular Rate, Normal S1, Normal S2, No Murmurs Abdomen: Normal Bowel Sounds, Soft, No Tenderness Extremities: Other Skin: No Rashes, No Breakdown, No Significant Lesion Neuro: Normal Tone Psych/Mental Status: Mental Status NL, Mood NL Results Lab Laboratory Tests 04/27/23 05:08 A/P-Cardiology Admission Diagnosis Acute on chronic respiratory failure AE COPD CAD PAD Assessment/Plan Acute on chronic respiratory failure, likely COPD exacerbation and pneumonia. Contribution from acute on chronic diastolic congestive heart failure. Improving. Hypertension, Clonidine increased to 0.1 mg 3 times daily Coreg 12.5 mg twice daily Norvasc 5 mg daily Tolerating current medication well, blood pressure is still having some elevation due to the steroid use Continue on current medication monitor blood pressure DM, management per medical services. CAD, continue antiplatelet therapy. PAD, no active issues. Acute on chronic diastolic congestive heart failure, given Lasix in the ER. Continue on current medications and continue to monitor. Stage IV chronic kidney disease, monitor kidney function very closely. Avoid nephrotoxins. Continue to monitor. Ex tobaccoism, patient recently quit smoking. Encourage to continue with smoking cessation. Mildly positive troponin, likely type II [place] due to acute respiratory failure. However patient's last stress test was in 2020. He has a left bundle branch block. Will plan for stress test as an outpatient. Left bundle branch block Moderate to severe back pain. FADUMO TALAVERA MD Apr 27, 2023 10:24
[2023-04-27 12:11] VITALS: BP 120/63
[2023-04-27] MEDS: ENOXAPARIN 30 MG/0.3 ML SYRINGE SC SCH (15:09)
[2023-04-27 15:31] VITALS: BP 147/66
[2023-04-27] MEDS: TAMSULOSIN 0.4 MG (FLOMAX) CAP PO SCH (17:07)
[2023-04-27] MEDS: MONTELUKAST 10 MG (SINGULAIR) TAB PO SCH (17:07)
[2023-04-27 20:08] VITALS: BP 126/61
[2023-04-27 23:35] VITALS: BP 140/64
[2023-04-28] MEDS: PANTOPRAZOLE 40 MG (PROTONIX) TAB PO SCH (04:51)
[2023-04-28] MEDS: predniSONE 20 MG TAB PO SCH (04:51)
[2023-04-28 06:05] LABS: BASOPHILS % (AUTO) 0 % (0-10); EOSINOPHILS # (AUTO) 0.2 10^3/uL (0.0-0.3); EOSINOPHILS % (AUTO) 1 % (0-10); HEMATOCRIT 24 % (40-54); HEMOGLOBIN 7.7 g/dL (13.3-17.7); LYMPHOCYTES # (AUTO) 1.1 10^3/uL (1.0-4.0); LYMPHOCYTES % (AUTO) 7 % (12-44); MEAN CORPUSCULAR HEMOGLOBIN 28 pg (25-34); MEAN CORPUSCULAR HGB CONC 32 g/dL (32-36); MEAN CORPUSCULAR VOLUME 88 fL (80-99); MEAN PLATELET VOLUME 11.2 fL (9.0-12.2); MONOCYTES # (AUTO) 1.2 10^3/uL (0.0-1.0); MONOCYTES % (AUTO) 8 % (0-12); NEUTROPHILS % (AUTO) 83 % (42-75); PLATELET COUNT 243 10^3/uL (130-400); WHITE BLOOD COUNT 15.6 10^3/uL (4.3-11.0)
[2023-04-28 06:18] LABS: ALBUMIN 2.8 GM/DL (3.2-4.5); POTASSIUM 5.1 MMOL/L (3.6-5.0)
[2023-04-28 06:19] LABS: CALCIUM 8.3 MG/DL (8.5-10.1)
[2023-04-28 06:20] LABS: TOTAL PROTEIN 5.4 GM/DL (6.4-8.2)
[2023-04-28 06:22] LABS: BILIRUBIN,TOTAL 0.2 MG/DL (0.1-1.0)
[2023-04-28] MEDS: inSUlin ASPART (NovoLOG) 1 UNIT/0.01 ML (CHARGE PER UNIT) SC SCH ×4 (06:26→20:01)
[2023-04-28 06:57] LABS: ANISOCYTOSIS SLIGHT; HYPOCHROMASIA MODERATE; LYMPHOCYTES % (MANUAL) 13 %; MONOCYTES % (MANUAL) 7 %; NEUTROPHILS % (MANUAL) 80 %; PLATELET ESTIMATE ADEQUATE
[2023-04-28 07:36] VITALS: BP 146/70
[2023-04-28] MEDS: RT-ALBUTEROL/IPRATROPIUM 3 ML (DUONEB) VIAL INH SCH ×2 (08:23→19:05)
[2023-04-28] MEDS: FLUTICASONE/VILANTEROL 200 MCG 14'S (BREO) IH SCH (08:24)
[2023-04-28] MEDS: TIOTROPIUM INH 4 GM (SPIRIVA Respimat) IH SCH (08:24)
[2023-04-28] MEDS: cloNIDine 0.1 MG TABLET PO SCH ×3 (08:59→20:02)
[2023-04-28] MEDS: ASPIRIN enteric coated 81MG TABLET PO SCH (08:59)
[2023-04-28] MEDS: amLODIPine 5 MG TABLET PO SCH (08:59)
[2023-04-28] MEDS: carvediloL 12.5 MG TABLET PO SCH ×2 (08:59→17:14)
[2023-04-28] MEDS: FOLIC ACID 1 MG TAB PO SCH (08:59)
[2023-04-28] MEDS: SENNOSIDES 8.6 MG (SENOKOT) TAB PO SCH ×2 (08:59→20:02)
[2023-04-28] MEDS: DOCUSATE SODIUM 100 MG CAPSULE PO SCH ×2 (08:59→20:02)
[2023-04-28] MEDS: CYANOCOBALAMIN 1,000 MCG TABLET PO SCH (09:00)
[2023-04-28] MEDS: CLOPIDOGREL 75 MG TABLET PO SCH (09:00)
[2023-04-28] MEDS: FLUTICASONE NASAL SPRAY (FLONASE) 16 GM BTL NS SCH (09:00)
[2023-04-28] MEDS: ALOGLIPTIN 6.25 MG PO SCH (09:01)
--- NOTE | 2023-04-28 10:02 | Physical Therapy Daily Note ---
PT Daily Note-Current Subjective Patient agrees to PT. Pain Section J - Health Conditions 1. Rarely or not at all 2. Occasionally 3. Frequently 4. Almost constantly 8. Unable to answer Pain Effect on Sleep: 1 Pain Interference with Therapy: 1 Pain Interference w/Day-to-Day: 1 Mental Status Patient Orientation: Normal For Age Attachments: Oxygen Transfers SCALE: Activities may be completed with or without assistive devices. 0-Gjlylgscnd-ozeuucv completes the activity by him/herself with no assistance from a helper. 5-Set-up or Clean-up Assistance-helper sets up or cleans up; patient completes activity. [place] assists only prior to or following the activity. 4-Supervision or Touching Assistance-helper provides verbal cues and/or touching/steadying and/or contact guard assistance as patient completes activity. Assistance may be provided throughout the activity or intermittently. 3-Partial/Moderate Assistance-helper does LESS THAN HALF the effort. [place] lifts, holds or supports trunk or limbs, but provides less than half the effort. 2-Substantial/Maximal Assistance-helper does MORE THAN HALF the effort. [place] lifts or holds trunk or limbs and provides more than half the effort. 8-Btdgmhtni-hwirbd does ALL the effort. Patient does none of the effort to complete the activity. Or, the assistance of 2 or more helpers is required for the patient to complete the activity. If activity was not attempted, code reason: 7-Patient Refused. 9-Not Applicable-not attempted and the patient did not perform the activity before the current illness, exacerbation or injury. 10-Not Attempted due to Environmental Limitations-(lack of equipment, weather restraints, etc.). 88-Not Attempted due to Medical Conditions or Safety Concerns. Sit to Stand (QC): 5 Weight Bearing Right Lower Extremity: Right Full Weight Bearing Left Lower Extremity: Left Full Weight Bearing Gait Training Distance: 250' Walk 10 feet (QC): 5 Walk 50 ft with 2 Turns(QC): 5 Walk 150 ft (QC): 5 Gait Assistive Device: FWW steady, trunk flexed posture Assessment Patient tolerated treatment well and remains seated EOB after session. PT to continue to increase activity as tolerated by patient. PT Penitentiary Goals Penitentiary Goals PT Media Specialist Goals Time Frame: May 24, 2023 Roll Left & Right (QC): 6 Sit to Lying (QC): 6 Lying-Sitting on Side/Bed(QC): 6 Sit to Stand (QC): 6 Chair/Ddg-hn-Hgdkp Xfer(QC): 6 Toilet Transfer (QC): 6 Does the Patient Walk: Yes Walk 10 feet (QC): 6 Walk 50ft with 2 Turns (QC): 4 Walk 150 ft (QC): 4 PT Plan Treatment/Plan Treatment Plan: Continue Plan of Care Treatment Plan: Bed Mobility, Education, Functional Activity González, Functional Strength, Group Therapy, Gait, Safety, Therapeutic Exercise, Transfers Treatment Duration: May 29, 2023 Frequency: 6 times per week Estimated Hrs Per Day: .25 hour per day Patient and/or Family Agrees t: Yes Time Time In: 936 Time Out: 948 DATE: Apr 28, 2023 Total Billed Treatment Time: 12 Total Billed Treatment 1 visit FA 12 min YUNG HASSAN PT Apr 28, 2023 10:02
--- NOTE | 2023-04-28 10:16 | Cardiology Progress Note ---
Subjective Date Seen by Provider: Apr 28, 2023 Time Seen by Provider: 10:15 Subjective/Events-last exam Patient was seen at bedside laying down comfortably, denied any chest pain, breathing better. Review of Systems General: No Chills, No Night Sweats, No Fatigue, No Malaise, No Appetite, No Other HEENT: No Head Aches, No Visual Changes, No Eye Pain, No Ear Pain, No Dysphasia, No Sinus Congestion, No Post Nasal Drip, No Sore Throat, No Other Pulmonary: Dyspnea; No Cough, No Pleuritic Chest Pain, No Other Cardiovascular: No: Chest Pain, Palpitations, Orthopnea, Paroxysmal Noc. Dyspnea, Edema, Lt Headedness, Other Objective-Cardiology Exam Last Set of Vital Signs Vital Signs 04/24/23 04/28/23 04/28/23 15:09 07:36 08:24 Temp 37.1 Pulse 80 Resp 18 B/P (MAP) 146/70 (95) Pulse Ox 99 O2 Delivery Nasal Cannula O2 Flow Rate 4.00 FiO2 36 I&O Intake and Output 04/28/23 00:00 Intake Total 2820 ml Output Total 2720 ml Balance 100 ml Intake Oral 2820 ml Output Urine Total 2720 ml General: Alert, Oriented X3, Cooperative, No Acute Distress HEENT: Atraumatic, PERRLA, EOMI Neck: Supple, No JVD, No Thyromegaly Lungs: Clear to Auscultation, Normal Air Movement Heart: Regular Rate, Normal S1, Normal S2, No Murmurs Abdomen: Normal Bowel Sounds, Soft, No Tenderness Extremities: Other Skin: No Rashes, No Breakdown, No Significant Lesion Neuro: Normal Tone Psych/Mental Status: Mental Status NL, Mood NL Results Lab Laboratory Tests 04/28/23 05:41 A/P-Cardiology Admission Diagnosis Acute on chronic respiratory failure AE COPD CAD PAD Assessment/Plan Acute on chronic respiratory failure, likely COPD exacerbation and pneumonia. Contribution from acute on chronic diastolic congestive heart failure. Improving. Hypertension, Clonidine increased to 0.1 mg 3 times daily Coreg 12.5 mg twice daily Norvasc 5 mg daily Tolerating current medication well, blood pressure is still having some elevation due to the steroid use Continue on current medication monitor blood pressure DM, management per medical services. CAD, continue antiplatelet therapy. PAD, no active issues. Acute on chronic diastolic congestive heart failure, given Lasix in the ER. Continue on current medications and continue to monitor. Stage IV chronic kidney disease, monitor kidney function very closely. Avoid nephrotoxins. Worsening renal function today I will hold Lasix and continue to monitor Ex tobaccoism, patient recently quit smoking. Encourage to continue with smoking cessation. Mildly positive troponin, likely type II [place] due to acute respiratory failure. However patient's last stress test was in 2020. He has a left bundle branch block. Will plan for stress test as an outpatient. Left bundle branch block Moderate to severe back pain. FADUMO TALAVERA MD Apr 28, 2023 10:16
--- NOTE | 2023-04-28 12:49 | Progress Note ---
Subjective Subjective/Events-last exam Patient states that he is doing alittle better but short of breath this AM. Tolerating PO diet. Having increase LE swelling this AM. Review of Systems General: Fatigue Pulmonary: Dyspnea Cardiovascular: Edema; No: Chest Pain, Palpitations Gastrointestinal: No: Nausea, Vomiting, Abdominal Pain, Diarrhea, Constipation Neurological: Weakness, Incoordination Objective Exam Last Set of Vital Signs Vital Signs Date Time Temp Pulse Resp B/P (MAP) Pulse Ox O2 Delivery O2 Flow Rate FiO2 04/28/23 08:24 99 Nasal Cannula 4.00 04/28/23 07:36 37.1 80 18 146/70 (95) 04/24/23 15:09 36 Capillary Refill : Less Than 3 Seconds I&O Intake and Output 04/28/23 00:00 Intake Total 2820 ml Output Total 2720 ml Balance 100 ml Intake Oral 2820 ml Output Urine Total 2720 ml General: Alert, Oriented X3, Mild Distress (with any activity) Lungs: Other (Diffuse wheezing in all lung carr, increased work of breathing with minimal activity) Heart: Regular Rate, No Murmurs Abdomen: Soft Extremities: Other (3+ pitting edema bilaterally) Neuro: Normal Speech Results/Procedures Lab Laboratory Tests 04/27/23 15:29: Glucometer 107 04/27/23 20:07: Glucometer 146H 04/28/23 05:41: White Blood Count 15.6H, Red Blood Count 2.77L, Hemoglobin 7.7L, Hematocrit 24L, Mean Corpuscular Volume 88, Mean Corpuscular Hemoglobin 28, Mean Corpuscular Hemoglobin Concent 32, Red Cell Distribution Width 17.7H, Platelet Count 243, Mean Platelet Volume 11.2, Immature Granulocyte % (Auto) 1, Neutrophils (%) (Auto) 83H, Lymphocytes (%) (Auto) 7L, Monocytes (%) (Auto) 8, Eosinophils (%) (Auto) 1, Basophils (%) (Auto) 0, Neutrophils # (Auto) 13.0H, Lymphocytes # (Au to) 1.1, Monocytes # (Auto) 1.2H, Eosinophils # (Auto) 0.2, Basophils # (Auto) 0.0, Immature Granulocyte # (Auto) 0.1, Neutrophils % (Manual) 80, Lymphocytes % (Manual) 13, Monocytes % (Manual) 7, Platelet Estimate ADEQUATE, Hypochromasia MODERATE, Anisocytosis SLIGHT, Sodium Level 140, Potassium Level 5.1H, Chloride Level 106, Carbon Dioxide Level 26, Anion Gap 8, Blood Urea Nitrogen 91H, Creatinine 3.00#H, Estimat Glomerular Filtration Rate 22, BUN/Creatinine Ratio 30, Glucose Level 102, Calcium Level 8.3L, Corrected Calcium 9.3, Total Bilirubin 0.2, Aspartate Amino Transf (AST/SGOT) 14, Alanine Aminotransferase (ALT/SGPT) 18, Alkaline Phosphatase 51, Total Protein 5.4L, Albumin 2.8L 04/28/23 06:04: Glucometer 98 04/28/23 09:56: Glucometer 164H Microbiology 04/18/23 Blood Culture - Final, Complete No growth 04/18/23 MRSA Screen - Final, Complete MRSA not isolated Assessment/Plan Assessment/Plan (1) Acute and chronic respiratory failure with hypoxia Status: Acute Assessment & Plan: - Pt on 2L O2 at home, recently he has been needing 3-4L PLAN - Supplemental O2 via NC vs BiPAP; currently on 4L O2 - Continuous pulse oximetry - Dexamethasone 4mg IV q12 - Albuterol PRN 04/28: - Multifactoral: End stage COPD/CHF, completed antibiotics, continue steroids, on home oxygen (2) Acute on chronic diastolic CHF (congestive heart failure) Status: Acute Assessment & Plan: PLAN: Continue to diurese as needed for fluid removal Continue home medications 04/28: - Backing off lasix today, PO hydration, discussed the importance of wearing compression to LE (3) Acute kidney injury superimposed on chronic kidney disease Assessment & Plan: PLAN: - Avoid kidney toxic agents - Hold diuresis for BHAVANA - Daily CMP 04/28: Bump in Cr this AM, PO hydration (4) COPD exacerbation Assessment & Plan: PLAN: - Steroid treatments as above - Pneumonia treatment as below (5) Pneumonia Onset Date: ~ 09/06/2021 Status: Acute Assessment & Plan: PLAN: - Abx; meropenam and vancomycin for bacterial coverage - Daily CBC to trend WBCs - Monitor for systemic symptoms of infection 04/28: Completed antibiotics Qualifiers: Qualified Codes: J18.9 - Pneumonia, unspecified organism (6) Hyperkalemia Status: Acute Assessment & Plan: 04/28: Kayexalate today DEYANIRA ALLAN MD Apr 28, 2023 12:49
[2023-04-28] MEDS ORDERED: SODIUM POLYSTYRENE POWDER 15 GM BOTTLE PO NR (13:00)
[2023-04-28] MEDS: ENOXAPARIN 30 MG/0.3 ML SYRINGE SC SCH (13:37)
[2023-04-28 15:33] VITALS: BP 142/63
[2023-04-28] MEDS: MONTELUKAST 10 MG (SINGULAIR) TAB PO SCH (17:14)
[2023-04-28] MEDS: TAMSULOSIN 0.4 MG (FLOMAX) CAP PO SCH (17:14)
[2023-04-28 23:24] VITALS: BP 154/63
[2023-04-29] MEDS: inSUlin ASPART (NovoLOG) 1 UNIT/0.01 ML (CHARGE PER UNIT) SC SCH ×2 (04:11→13:31)
[2023-04-29 05:21] LABS: BASOPHILS % (AUTO) 0 % (0-10); EOSINOPHILS # (AUTO) 0.2 10^3/uL (0.0-0.3); EOSINOPHILS % (AUTO) 2 % (0-10); HEMATOCRIT 25 % (40-54); HEMOGLOBIN 7.7 g/dL (13.3-17.7); LYMPHOCYTES # (AUTO) 1.3 10^3/uL (1.0-4.0); LYMPHOCYTES % (AUTO) 9 % (12-44); MEAN CORPUSCULAR HEMOGLOBIN 28 pg (25-34); MEAN CORPUSCULAR HGB CONC 31 g/dL (32-36); MEAN CORPUSCULAR VOLUME 89 fL (80-99); MEAN PLATELET VOLUME 11.3 fL (9.0-12.2); MONOCYTES # (AUTO) 1.3 10^3/uL (0.0-1.0); MONOCYTES % (AUTO) 10 % (0-12); NEUTROPHILS # (AUTO) 10.9 10^3/uL (1.8-7.8); NEUTROPHILS % (AUTO) 79 % (42-75); PLATELET COUNT 244 10^3/uL (130-400); WHITE BLOOD COUNT 13.9 10^3/uL (4.3-11.0)
[2023-04-29 05:30] LABS: ALBUMIN 2.9 GM/DL (3.2-4.5); POTASSIUM 5.4 MMOL/L (3.6-5.0)
[2023-04-29 05:31] LABS: CALCIUM 8.5 MG/DL (8.5-10.1)
[2023-04-29 05:32] LABS: TOTAL PROTEIN 5.6 GM/DL (6.4-8.2)
[2023-04-29 05:34] LABS: BILIRUBIN,TOTAL 0.2 MG/DL (0.1-1.0)
[2023-04-29 05:36] LABS: CREATININE SERUM 2.98 MG/DL (0.60-1.30)
[2023-04-29] MEDS: PANTOPRAZOLE 40 MG (PROTONIX) TAB PO SCH (06:00)
[2023-04-29] MEDS: predniSONE 20 MG TAB PO SCH (06:00)
[2023-04-29] MEDS: RT-ALBUTEROL/IPRATROPIUM 3 ML (DUONEB) VIAL INH SCH (06:52)
[2023-04-29] MEDS: TIOTROPIUM INH 4 GM (SPIRIVA Respimat) IH SCH (06:55)
[2023-04-29] MEDS: FLUTICASONE/VILANTEROL 200 MCG 14'S (BREO) IH SCH (06:56)
[2023-04-29 07:26] VITALS: BP 149/67
[2023-04-29] MEDS ORDERED: NS IV 500 ML 500 ML IV SCH (08:30)
[2023-04-29] MEDS: CLOPIDOGREL 75 MG TABLET PO SCH (08:36)
[2023-04-29] MEDS: ASPIRIN enteric coated 81MG TABLET PO SCH (08:36)
[2023-04-29] MEDS: cloNIDine 0.1 MG TABLET PO SCH (08:36)
[2023-04-29] MEDS: DOCUSATE SODIUM 100 MG CAPSULE PO SCH (08:36)
[2023-04-29] MEDS: carvediloL 12.5 MG TABLET PO SCH (08:36)
[2023-04-29] MEDS: SENNOSIDES 8.6 MG (SENOKOT) TAB PO SCH (08:36)
[2023-04-29] MEDS: amLODIPine 5 MG TABLET PO SCH (08:36)
[2023-04-29] MEDS: ALOGLIPTIN 6.25 MG PO SCH (08:37)
[2023-04-29] MEDS: FLUTICASONE NASAL SPRAY (FLONASE) 16 GM BTL NS SCH (08:39)
--- NOTE | 2023-04-29 08:49 | Cardiology Progress Note ---
Subjective Date Seen by Provider: Apr 29, 2023 Time Seen by Provider: 08:48 Subjective/Events-last exam Patient was seen at bedside, sitting comfortably, no new complaint. Objective-Cardiology Exam Last Set of Vital Signs Vital Signs 04/24/23 04/29/23 15:09 07:26 Temp 36.7 Pulse 82 Resp 20 B/P (MAP) 149/67 (94) Pulse Ox 95 O2 Delivery Nasal Cannula O2 Flow Rate 4.00 FiO2 36 I&O Intake and Output 04/29/23 00:00 Intake Total 2360 ml Output Total 2950 ml Balance -590 ml Intake Oral 2360 ml Output Urine Total 2950 ml # Voids 3 # Bowel Movements 2 General: Alert, Oriented X3, Mild Distress (with any activity) HEENT: Atraumatic, PERRLA, EOMI Neck: Supple, No JVD, No Thyromegaly Lungs: Other (Diffuse wheezing in all lung carr, increased work of breathing with minimal activity) Heart: Regular Rate, Normal S1, Normal S2, No Murmurs Abdomen: Soft Extremities: No Clubbing, No Cyanosis, Other (3+ pitting edema bilaterally) Skin: No Rashes, No Breakdown, No Significant Lesion Neuro: Normal Speech Psych/Mental Status: Mental Status NL, Mood NL Results Lab Laboratory Tests 04/29/23 05:00 A/P-Cardiology Admission Diagnosis Acute on chronic respiratory failure AE COPD CAD PAD Assessment/Plan Status post acute on chronic respiratory failure, likely COPD exacerbation and pneumonia. Contribution from acute on chronic diastolic congestive heart failure. Improving. Hypertension, Clonidine increased to 0.1 mg 3 times daily Coreg 12.5 mg twice daily Norvasc 5 mg daily Tolerating current medication well, blood pressure is still having some elevation due to the steroid use Continue on current medication monitor blood pressure DM, management per medical services. CAD, continue antiplatelet therapy. PAD, no active issues. Acute on chronic diastolic congestive heart failure, given Lasix in the ER. Continue on current medications and continue to monitor. Stage IV chronic kidney disease, monitor kidney function very closely. Avoid nephrotoxins. Deterioration in renal function, Lasix was discontinued on 04/28/2023 Slight improvement in renal function Continue to monitor Ex tobaccoism, patient recently quit smoking. Encourage to continue with smoking cessation. Mildly positive troponin, likely type II [place] due to acute respiratory failure. However patient's last stress test was in 2020. He has a left bundle branch block. Will plan for stress test as an outpatient. Left bundle branch block Moderate to severe back pain. FADUMO TALAVERA MD Apr 29, 2023 08:49
[2023-04-29] MEDS: FOLIC ACID 1 MG TAB PO SCH (09:18)
[2023-04-29] MEDS: CYANOCOBALAMIN 1,000 MCG TABLET PO SCH (09:18)
--- NOTE | 2023-04-29 10:37 | Physical Therapy Progress Note ---
Therapy Progress Note Patient declined this a.samanta PT will attempt later today or tomorrow YUNG Aviles PT Apr 29, 2023 10:37
--- NOTE | 2023-04-29 10:50 | Discharge Summary ---
Diagnosis/Chief Complaint Date of Admission Apr 18, 2023 at 14:01 Date of Discharge 04/29/23 Admission Diagnosis Admission Diagnosis See problem list Discharge Diagnosis See below Problems/Diagnosis: (1) Acute and chronic respiratory failure with hypoxia Assessment & Plan: - Pt on 2L O2 at home, recently he has been needing 3-4L PLAN - Supplemental O2 via NC vs BiPAP; currently on 4L O2 - Continuous pulse oximetry - Dexamethasone 4mg IV q12 - Albuterol PRN 04/28: - Multifactoral: End stage COPD/CHF, completed antibiotics, continue steroids, on home oxygen 04/29: - Encouraged IS, ok to discharge today with HHPT Status: Acute (2) Acute on chronic diastolic CHF (congestive heart failure) Assessment & Plan: PLAN: Continue to diurese as needed for fluid removal Continue home medications 04/28: - Backing off lasix today, PO hydration, discussed the importance of wearing compression to LE Status: Acute (3) Acute kidney injury superimposed on chronic kidney disease Assessment & Plan: PLAN: - Avoid kidney toxic agents - Hold diuresis for BHAVANA - Daily CMP 04/28: Bump in Cr this AM, PO hydration 04/29: - Patient will need to f.u with Nephrology, Cr trended up during hospitalization (4) COPD exacerbation Assessment & Plan: PLAN: - Steroid treatments as above - Pneumonia treatment as below (5) Pneumonia Assessment & Plan: PLAN: - Abx; meropenam and vancomycin for bacterial coverage - Daily CBC to trend WBCs - Monitor for systemic symptoms of infection 04/28: Completed antibiotics Qualifiers: Qualified Codes: J18.9 - Pneumonia, unspecified organism Status: Acute (6) Hyperkalemia Assessment & Plan: 04/28: Kayexalate today Status: Acute Discharge Summary-Simple/Stand Consultations Dr Pizarro: Cardiology Discharge Physical Examination Allergies: Coded Allergies: liraglutide (Verified Allergy, Unknown, 09/06/21) Vitals & I&Os Vital Sign - Last 12Hours Date Time Temp Pulse Resp B/P (MAP) Pulse Ox O2 Delivery O2 Flow Rate FiO2 04/29/23 08:25 96 Nasal Cannula 4.00 04/29/23 07:26 36.7 82 20 149/67 (94) 04/24/23 15:09 36 Intake and Output 04/28/23 23:59 Intake Total 1760 ml Output Total 1500 ml Balance 260 ml General Appearance: Alert, Oriented X3, No Acute Distress Respiratory: Clear to Auscultation, Normal Air Movement Cardiovascular: Regular Rate, No Murmurs Abdominal: Normal Bowel Sounds, Soft, No Tenderness Extremities: Other (2+ pitting edema) Neuro: Normal Speech, Cranial Nerves 3-12 NL Psych/Mental Status: Mental Status NL, Mood NL Hospital Course See final discharge diagnosis. Discharge Condition at discharge Poor prognosis Instructions to patient/family Please see electronic discharge instructions given to patient. Discharge Medications Reviewed and agree with Discharge Medication list on patient's Discharge Instruction sheet DEYANIRA ALLAN MD Apr 29, 2023 10:50
[2023-04-29] MEDS ORDERED: AMLO-250 PO (10:54)
[2023-04-29] MEDS ORDERED: CLN.1T PO (10:54)
[2023-04-29] MEDS ORDERED: INSU100V5 SQ (10:54)
--- NOTE | 2023-04-29 10:55 | Discharge Summary ---
Discharge [facility] Reconcile Patient Problems Problems Reviewed?: Yes Discharge Medications New, Converted or Re-Newed RX: Transmitted to Pharmacy New Medications: Amlodipine Besylate (Amlodipine Besylate) 5 Mg Tablet 5 MG PO DAILY, #30 TAB Clonidine HCl (Clonidine HCl) 0.1 Mg Tablet 0.1 MG PO TID, #90 TAB Insulin Determir (Levemir) 100 Unit/Ml Soln 40 UNIT SQ BID, #1 EA Continued Medications: Albuterol Sulfate (Ventolin Hfa) 18 Gm Hfa.aer.ad 2 PUFF INH Q4H PRN for SHORTNESS OF BREATH, INHALER Alogliptin Benzoate (Nesina) 6.25 Mg Tablet 6.25 MG PO DAILY, TAB Aspirin (Aspirin EC) 81 Mg Tablet.dr 81 MG PO DAILY, TAB Atorvastatin Calcium (Lipitor) 40 Mg Tablet 40 MG PO 1700, TAB Budesonide/Glycopyr/Formoterol (Breztri Aerosphere Inhaler) 160 Mcg-9 Mcg-4.8 M cg/Actuation Hfa.aer.ad 2 PUFF IH BID, GM Carvedilol (Carvedilol) 25 Mg Tablet 12.5 MG PO BID WITH MEALS, TAB TAKES (25MG) TABLET Clopidogrel Bisulfate (Clopidogrel) 75 Mg Tablet 75 MG PO DAILY Cyanocobalamin (Vitamin B-12) (Vitamin B-12) 1,000 Mcg Tablet 1000 MCG PO DAILY, TAB Fluticasone Propionate (Flonase Allergy Relief) 50 Mcg/Actuation [place].susp 1-2 SPRAY NSEACH DAILY, EACH Folic Acid (Folic Acid) 0.4 Mg Tablet 0.4 MG PO DAILY, TAB Montelukast Sodium (Montelukast Sodium) 10 Mg Tablet 10 MG PO 1700, TAB Nitroglycerin (Nitroglycerin) 0.4 Mg Tab.subl 0.4 MG SL UD PRN for CHEST PAIN, TAB Pantoprazole Sodium (Pantoprazole Sodium) 40 Mg Tablet.dr 40 MG PO DAILY, TAB Tamsulosin HCl (Flomax) 0.4 Mg Cap 0.4 MG PO 1700, CAP Discontinued Medications: Furosemide (Furosemide) 20 Mg Tablet 20 MG PO DAILY, TAB Glipizide (Glipizide) 5 Mg Tablet 5 MG PO BID WITH MEALS, TAB Insulin Glargine,Hum.rec.anlog (Lantus Solostar) 100 Unit/Ml (3 Ml) Insuln.pen 20-25 UNITS SQ 1200 PRN for HYPERGLYCEMIA, EA Lisinopril (Lisinopril) 40 Mg Tablet 20 MG PO DAILY, TAB TAKES OF A 40MG TAB Patient Instructions Goal/Follow Up Appt: PCP at [facility] 1 week Patient Instructions: - Keep light compression on LE bilaterally - Make sure you are doing your LE exercises daily to help with the swelling - Elevate legs Activity & Diet Discharge Diet: Low Sodium Diet, ADA Diet Activity as Tolerated: Yes DEYANIRA ALLAN MD Apr 29, 2023 10:55
--- NOTE | 2023-04-29 11:02 | Discharge Summary ---
Discharge Summary Reconcile Patient Problems Problems Reviewed?: Yes Instructions for Patient Via [employer], Assessment/Instructions See problem list Physician to follow Patient: [facility] Discharge Diet for Home: ADA Diet, Cardiac Diet Hospital Course Date of Admission: Apr 18, 2023 at 14:01 Admission Diagnosis : Family Physician/Provider: Jasmin Bland Aprn Date of Discharge: 04/29/23 Discharge Diagnosis: A/C Respiratory Failure with hypoxia A/C CHF A/C Renal Failure AECOPD Hyperkalemia Labs and Pending Lab Test: Laboratory Tests 04/28/23 15:36: Glucometer 158H 04/28/23 19:53: Glucometer 242H 04/29/23 04:08: Glucometer 80 04/29/23 05:00: White Blood Count 13.9H, Red Blood Count 2.78L, Hemoglobin 7.7L, Hematocrit 25L, Mean Corpuscular Volume 89, Mean Corpuscular Hemoglobin 28, Mean Corpuscular Hemoglobin Concent 31L, Red Cell Distribution Width 18.1H, Platelet Count 244, Mean Platelet Volume 11.3, Immature Granulocyte % (Auto) 1, Neutrophils (%) (Auto) 79H, Lymphocytes (%) (Auto) 9L, Monocytes (%) (Auto) 10, Eosinophils (%) (Auto) 2, Basophils (%) (Auto) 0, Neutrophils # (Auto) 10.9H, Lymphocytes # (Auto) 1.3, Monocytes # (Auto) 1.3H, Eosinophils # (Auto) 0.2, Basophils # (Auto) 0.0, Immature Granulocyte # (Auto) 0.1, Sodium Level 142, Potassium Level 5.4H, Chloride Level 105, Carbon Dioxide Level 27, Anion Gap 10, Blood Urea Nitrogen 101*H, Creatinine 2.98H, Estimat Glomerular Filtration Rate 22, BUN/Creatinine Ratio 34, Glucose Level 85, Calcium Level 8.5, Corrected Calcium 9.4, Total Bilirubin 0.2, Aspartate Amino Transf (AST/SGOT) 16, Alanine Aminotransferase (ALT/SGPT) 22, Alkaline Phosphatase 50, Total Protein 5.6L, Albumin 2.9L Microbiology 04/18/23 Blood Culture - Final, Complete No growth 04/18/23 MRSA Screen - Final, Complete MRSA not isolated Home Meds Active Levemir (Insulin Determir) 100 Unit/Ml Soln 40 Unit SQ BID Amlodipine Besylate 5 Mg Tablet 5 Mg PO DAILY Clonidine HCl 0.1 Mg Tablet 0.1 Mg PO TID Reported Furosemide 20 Mg Tablet 20 Mg PO DAILY Glipizide 5 Mg Tablet 5 Mg PO BID WITH MEALS Folic Acid 0.4 Mg Tablet 0.4 Mg PO DAILY Vitamin B-12 (Cyanocobalamin (Vitamin B-12)) 1,000 Mcg Tablet 1,000 Mcg PO DAILY Breztri Aerosphere Inhaler (Budesonide/Glycopyr/Formoterol) 160 Mcg-9 Mcg-4.8 Mcg/Actuation Hfa.aer.ad 2 Puff IH BID Nesina (Alogliptin Benzoate) 6.25 Mg Tablet 6.25 Mg PO DAILY Carvedilol 25 Mg Tablet 12.5 Mg PO BID WITH MEALS TAKES (25MG) TABLET Flonase Allergy Relief (Fluticasone Propionate) 50 Mcg/Actuation [place].susp 1-2 [place] NSEACH DAILY Nitroglycerin 0.4 Mg Tab.subl 0.4 Mg SL UD PRN Montelukast Sodium 10 Mg Tablet 10 Mg PO 1700 Ventolin Hfa (Albuterol Sulfate) 18 Gm Hfa.aer.ad 2 Puff INH Q4H PRN Flomax (Tamsulosin HCl) 0.4 Mg Cap 0.4 Mg PO 1700 Lipitor (Atorvastatin Calcium) 40 Mg Tablet 40 Mg PO 1700 Lantus Solostar (Insulin Glargine,Hum.rec.anlog) 100 Unit/Ml (3 Ml) Insuln.pen 20-25 Units SQ 1200 PRN Lisinopril 40 Mg Tablet 20 Mg PO DAILY TAKES OF A 40MG TAB Aspirin EC (Aspirin) 81 Mg Tablet. 81 Mg PO DAILY Clopidogrel (Clopidogrel Bisulfate) 75 Mg Tablet 75 Mg PO DAILY Pantoprazole Sodium 40 Mg Tablet. 40 Mg PO DAILY Consulations Cardiology: Dr Pizarro Patient Allergies: Coded Allergies: liraglutide (Verified Allergy, Unknown, 09/06/21) Height (Feet): 5 Height (Inches): 11.00 Weight (Pounds): 225 Weight (Ounces): 0.0 New Medications: Amlodipine Besylate (Amlodipine Besylate) 5 Mg Tablet 5 MG PO DAILY, #30 TAB Clonidine HCl (Clonidine HCl) 0.1 Mg Tablet 0.1 MG PO TID, #90 TAB Insulin Determir (Levemir) 100 Unit/Ml Soln 40 UNIT SQ BID, #1 EA Continued Medications: Albuterol Sulfate (Ventolin Hfa) 18 Gm Hfa.aer.ad 2 PUFF INH Q4H PRN for SHORTNESS OF BREATH, INHALER Alogliptin Benzoate (Nesina) 6.25 Mg Tablet 6.25 MG PO DAILY, TAB Aspirin (Aspirin EC) 81 Mg Tablet.dr 81 MG PO DAILY, TAB Atorvastatin Calcium (Lipitor) 40 Mg Tablet 40 MG PO 1700, TAB Budesonide/Glycopyr/Formoterol (Breztri Aerosphere Inhaler) 160 Mcg-9 Mcg-4.8 Mcg/Actuation Hfa.aer.ad 2 PUFF IH BID, GM Carvedilol (Carvedilol) 25 Mg Tablet 12.5 MG PO BID WITH MEALS, TAB TAKES (25MG) TABLET Clopidogrel Bisulfate (Clopidogrel) 75 Mg Tablet 75 MG PO DAILY Cyanocobalamin (Vitamin B-12) (Vitamin B-12) 1,000 Mcg Tablet 1000 MCG PO DAILY, TAB Fluticasone Propionate (Flonase Allergy Relief) 50 Mcg/Actuation [place].susp 1-2 SPRAY NSEACH DAILY, EACH Folic Acid (Folic Acid) 0.4 Mg Tablet 0.4 MG PO DAILY, TAB Montelukast Sodium (Montelukast Sodium) 10 Mg Tablet 10 MG PO 1700, TAB Nitroglycerin (Nitroglycerin) 0.4 Mg Tab.subl 0.4 MG SL UD PRN for CHEST PAIN, TAB Pantoprazole Sodium (Pantoprazole Sodium) 40 Mg Tablet.dr 40 MG PO DAILY, TAB Tamsulosin HCl (Flomax) 0.4 Mg Cap 0.4 MG PO 1700, CAP Discontinued Medications: Furosemide (Furosemide) 20 Mg Tablet 20 MG PO DAILY, TAB Glipizide (Glipizide) 5 Mg Tablet 5 MG PO BID WITH MEALS, TAB Insulin Glargine,Hum.rec.anlog (Lantus Solostar) 100 Unit/Ml (3 Ml) Insuln.pen 20-25 UNITS SQ 1200 PRN for HYPERGLYCEMIA, EA Lisinopril (Lisinopril) 40 Mg Tablet 20 MG PO DAILY, TAB TAKES OF A 40MG TAB Home Health Need/Face to Face Date of Face to Face: Apr 29, 2023 Clinical Findings: Generalized weakness and fatigue, Muscle weakness, Shortness of breath, Unsteady gait I have seen Pt [id number]: Yes Discharged To: Home Diagnosis/Conditions: See above Patient is Homebound due to: Michael fall risk due to instabilty, Shortness of breath/distress Homebound Status Due to the above stated illness, injury or surgical procedure (medical condition or diagnosis) and associated clinical findings, the patient is homebound because of his/her inability to leave home except with aid of a supportive device and/or person AND leaving the home requires a considerable and taxing effort or is medically contraindicated. Pt req the following assistanc: [facility] Nursing Orders Home Health Services Order: Nursing Services, Underwear Finisher-Evaluate & Treat, Physical Therapy-Evaluate & Treat Home Health Infusion Therapy Line Start Date: Apr 18, 2023 Therapy Orders Therapy Orders: OT (must have SN or PT order), PT to assess for OT Therapy Specific Orders: Gait training, Increase strength/endurance Certify Stmt I certify that this patient is under my care and that I, a nurse practitioner or a physician; a printer's assistant working with me, had a face to face encounter that - meets the physician face to face encounter requirements with this patient as dated. Discharge Physical Exam General: Alert, Oriented X3, No Acute Distress Lungs: Other (Basilar wheezing, normal work of breathing at rest) Heart: Regular Rate, No Murmurs Abdomen: Normal Bowel Sounds, Soft, No Tenderness, No Masses Extremities: Other (2+ pitting edema) Neuro: Normal Speech DEYANIRA ALLAN MD Apr 29, 2023 11:02
[2023-04-29 13:44] VITALS: BP 149/67
== END 2023-04-29 13:30 | disposition home health service (06) | DRG 193 ==
LOC: EDUNIT# 09:31 → ER 09:32 → ICU 14:01 → 4TH 04-19 13:02
PROVIDERS: ADMIT Internal Medicine; ATTEND Family Medicine
DX: J18.9 Pneumonia, unspecified organism (principal); I21.A1 Myocardial infarction type 2; I50.33 Acute on chronic diastolic (congestive) heart failure; J96.22 Acute and chronic respiratory failure with hypercapnia; J96.21 Acute and chronic respiratory failure with hypoxia; I13.0 Hypertensive heart and chronic kidney disease with heart failure and stage 1 through stage 4 chronic kidney disease, or unspecified chronic kidney disease; N18.4 Chronic kidney disease, stage 4 (severe); N17.9 Acute kidney failure, unspecified; J44.0 Chronic obstructive pulmonary disease with (acute) lower respiratory infection; E11.22 Type 2 diabetes mellitus with diabetic chronic kidney disease; Z79.4 Long term (current) use of insulin; Z79.84 Long term (current) use of oral hypoglycemic drugs; E11.40 Type 2 diabetes mellitus with diabetic neuropathy, unspecified; I25.10 Atherosclerotic heart disease of native coronary artery without angina pectoris; Z79.01 Long term (current) use of anticoagulants; I44.7 Left bundle-branch block, unspecified; E87.5 Hyperkalemia; E78.00 Pure hypercholesterolemia, unspecified; M19.90 Unspecified osteoarthritis, unspecified site; D64.9 Anemia, unspecified; I73.9 Peripheral vascular disease, unspecified; M54.9 Dorsalgia, unspecified; I25.2 Old myocardial infarction; Z87.891 Personal history of nicotine dependence; Z95.5 Presence of coronary angioplasty implant and graft; Z91.09 Other allergy status, other than to drugs and biological substances; Z79.82 Long term (current) use of aspirin; Z79.899 Other long term (current) drug therapy
CPT/HCPCS: 36415; 36600; 71045; 71250; 80053; 80061; 80202; 81000; 82805; 82947; 83605; 83735; 83874; 83880; 84100; 84484; 85007; 85025; 85027; 85610; 85730; 87040; 87081; 93005; 93041; 94640; 94660; 94760; 96365; 96367; 96375

== ENCOUNTER 2023-04-30 17:19 | Inpatient (IN) | payer OTHER, MEDICARE ==
[~2023-04-30] VITALS: Ht 177.8 cm; Wt 93.8 kg
[~2023-04-30 17:19] MED LIST changes: +CLN.1T PO
[2023-04-30] MEDS ORDERED: NITROGLYCERIN 0.4 MG SL TABLETS BTL 25'S SL ONE (17:25)
[2023-04-30] MEDS ORDERED: RT-Ipratropium/Albuterol NEB 3 ML VIAL INH ONE (17:30)
--- NOTE | 2023-04-30 17:31 | ED Respiratory ---
General Chief Complaint: Respiratory Problems Stated Complaint: SOA Source: patient Exam Limitations: no limitations (INDY MONTANEZ DO) History of Present Illness Date Seen by Provider: Apr 30, 2023 Time Seen by Provider: 17:20 Initial Comments 72-year-old male with history of COPD, CHF, ACS, chronic kidney disease presents to the emergency department for shortness of breath. He was admitted from the emergency department recently with pneumonia and COPD exacerbation, discharged yesterday. On record review it is noted that his Lasix 20 mg daily was stopped on 04/28 as he had a creatinine that was elevated from his baseline. On discharge his creatinine was 2.98, the day prior it was 3.0. It appears his baseline is around 2.6-2.7. He states he started having shortness of breath this afternoon and has progressively worsened though he does endorse that he has been short of breath since he got discharged from the hospital. His symptoms became severe this evening to the point where his could not help him get around anymore. He had to be assisted out of the vehicle due to extreme shortness of breath. He has conversational dyspnea but is able to tell me that he would like to be put on a ventilator to save his life. He does state that his leg swelling has gotten worse since discharge and has severe orthopnea. He denies any fevers. No chest pain. He does wear oxygen chronically at home, 4 L via nasal cannula and he does arrive with his portable oxygen tank. Initial oxygen saturation is 72 to 75% on 4 L of oxygen via nasal cannula. All other systems reviewed and negative except documented per HPI. Voice recognition software was used to help create this chart (INDY MONTANEZ DO) Allergies and Home Medications Allergies Coded Allergies: liraglutide (Verified Allergy, Unknown, 09/06/21) Patient Home Medication List Home Medication List Reviewed: Yes (INDY MONTANEZ DO) Albuterol Sulfate (Ventolin Hfa) 18 Gm Hfa.aer.ad, 2 PUFF INH Q4H PRN for SHORTNESS OF BREATH, (Reported) Entered as Reported by: GEORGINA ALVAREZ on 06/11/19 4084 Last Action: Continued Alogliptin Benzoate (Nesina) 6.25 Mg Tablet, 6.25 MG PO DAILY, (Reported) Entered as Reported by: JIM MCDONALD on 02/26/23 112 Last Action: Converted Amlodipine Besylate (Amlodipine Besylate) 5 Mg Tablet, 5 MG PO DAILY Prescribed by: DEYANIRA ALLAN on 04/29/23 1054 Last Action: Held Aspirin (Aspirin EC) 81 Mg Tablet.dr, 81 MG PO DAILY, (Reported) Entered as Reported by: MARLY NAVARRETE on 10/06/17 1348 Last Action: Continued Atorvastatin Calcium (Lipitor) 40 Mg Tablet, 40 MG PO 1700, (Reported) Entered as Reported by: DESEAN COE on 12/23/18 0731 Last Action: Continued Budesonide/Glycopyr/Formoterol (Breztri Aerosphere Inhaler) 160 Mcg-9 Mcg-4.8 Mcg/Actuation Hfa.aer.ad, 2 PUFF IH BID, (Reported) Entered as Reported by: JIM MCDONALD on 02/26/231121 Last Action: Converted Carvedilol (Carvedilol) 25 Mg Tablet, 12.5 MG PO BID WITH MEALS, (Reported) Entered as Reported by: RADHA MACKAY on 05/16/21 0819 Last Action: Held Clonidine HCl (Clonidine HCl) 0.1 Mg Tablet, 0.1 MG PO TID Prescribed by: DEYANIRA ALLAN on 04/29/23 1054 Last Action: Held Clopidogrel Bisulfate (Clopidogrel) 75 Mg Tablet, 75 MG PO DAILY, (Reported) Entered as Reported by: GEORGINA ALVAREZ on 05/16/15 1119 Last Action: Continued Cyanocobalamin (Vitamin B-12) (Vitamin B-12) 1,000 Mcg Tablet, 1,000 MCG PO DAILY, (Reported) Entered as Reported by: JIM MCDONALD on 02/26/23 112 Last Action: Continued Fluticasone Propionate (Flonase Allergy Relief) 50 Mcg/Actuation [place].susp, 1-2 SPRAY NSEACH DAILY, (Reported) Entered as Reported by: JIM MCDONALD on 01/19/21 112 Last Action: Held Folic Acid (Folic Acid) 0.4 Mg Tablet, 0.4 MG PO DAILY, (Reported) Entered as Reported by: JIM MCDONALD on 02/26/23 112 Last Action: Converted Insulin Determir (Levemir) 100 Unit/Ml Soln, 40 UNIT SQ BID Prescribed by: DEYANIRA ALLAN on 04/29/23 1054 Last Action: Converted Montelukast Sodium (Montelukast Sodium) 10 Mg Tablet, 10 MG PO 1700, (Reported) Entered as Reported by: JIM MCDONALD on 01/19/21 1126 Last Action: Continued Nitroglycerin (Nitroglycerin) 0.4 Mg Tab.subl, 0.4 MG SL UD PRN for CHEST PAIN, (Reported) Entered as Reported by: JIM MCDONALD on 01/19/21 1126 Last Action: Held Pantoprazole Sodium (Pantoprazole Sodium) 40 Mg Tablet.dr, 40 MG PO DAILY, (Reported) Entered as Reported by: GEORGINA ALVAREZ on 05/16/15 1118 Last Action: Continued Tamsulosin HCl (Flomax) 0.4 Mg Cap, 0.4 MG PO 1700, (Reported) Entered as Reported by: DESEAN COE on 12/23/18 0731 Last Action: Continued Discontinued Medications Furosemide (Furosemide) 20 Mg Tablet, 20 MG PO DAILY, (Reported) Entered as Reported by: JIM MCDONALD on 04/18/23 1533 Glipizide (Glipizide) 5 Mg Tablet, 5 MG PO BID WITH MEALS, (Reported) Entered as Reported by: JIM MCDONALD on 04/03/23 1607 Insulin Glargine,Hum.rec.anlog (Lantus Solostar) 100 Unit/Ml (3 Ml) Insuln.pen, 20-25 UNITS SQ 1200 PRN for HYPERGLYCEMIA, (Reported) Entered as Reported by: MARLY NAVARRETE on 10/06/17 1538 Lisinopril (Lisinopril) 40 Mg Tablet, 20 MG PO DAILY, (Reported) Entered as Reported by: MARLY NAVARRETE on 10/06/17 1535 Review of Systems Review of Systems Constitutional: see HPI (INDY MONTANEZ DO) Past Sfdgjqa-Cjxpfm-Fdpgrn Hx Patient Social History Tobacco Use?: Yes Use of E-Cig and/or Vaping dev: No Substance use?: No Alcohol Use?: No (INDY MONTANEZ DO) Immunizations Up To Date Tetanus Booster (TDap): Unknown PED Vaccines UTD: Yes First/Initial COVID19 Vaccinat: NOVEMBER 2020, SHRTUHI AND SHRUTHI Second COVID19 Vaccination Nomi: NOVEMBER 2020, DONALD Third COVID19 Vaccination Date: NOVEMBER 2020, DONALD (LISSETHINDY De Paz ) Seasonal Allergies Seasonal Allergies: No (LISSETHINDY De Paz Rizwan JUAREZ) Past Medical History Surgery/Hospitalization HX: Pulmonary edema 02/25, CHF, COPD, DM2, HTN Parotid gland biopsy Surgeries: Yes (CHEST TUBE INSERTION, heart cathx9 stents) Cardiac, Coronary Stent Respiratory: Yes (Uses oxygen at 4 L/min nasal cannula at home) COPD Currently Using CPAP: No Currently Using BIPAP: No Cardiac: Yes Chronic Edema/Swelling, Coronary Artery Disease, Heart Attack, High Cholesterol, Hypertension Neurological: No Neuropathy Reproductive Disorders: No Genitourinary: Yes Gastrointestinal: Yes Hepatitis, Polyps Musculoskeletal: Yes Arthritis, Chronic Back Pain Endocrine: Yes Diabetes, Insulin dep HEENT: No (hemmoraging in back of both eyes-pt see specialist for it) Cataract, Macular Degeneration Cancer: No Psychosocial: No Integumentary: No Blood Disorders: No (LISSETHINDY De Paz Rizwan JUAREZ) Family Medical History Patient reports no known family medical history. No Pertinent Family Hx (INDY MONTANEZ ) Physical Exam Vital Signs - First Documented 04/30/23 04/30/23 04/30/23 17:20 17:29 18:51 Temp 37.6 Pulse 114 Resp 27 B/P (MAP) 147/78 (101) Pulse Ox 100 O2 Delivery NIV Bilevel O2 Flow Rate 100.00 FiO2 60 (PRINCESS MA MD) Capillary Refill : (INDY MONTANEZ Rizwan JUAREZ) Height: 5'11.00" Weight: 225lbs. 0.0oz. 102.739183dh; 35.99 BMI Method:Stated General Appearance: WD/WN, severe distress HEENT: other (Dry mucous membranes) Neck: non-tender, normal inspection Respiratory: chest non-tender, other (Severe respiratory distress with use of accessory muscles. Diffuse inspiratory and expiratory wheezing with crackles bilaterally throughout all lung carr.) Cardiovascular: tachycardia, other (3+ pitting edema bilateral lower extremities) Gastrointestinal: normal bowel sounds, non tender, soft, no organomegaly Extremities: normal capillary refill, pedal edema Neurologic/Psychiatric: alert, oriented x 3 Skin: normal color, warm/dry (INDY MONTANEZ DO) Focused Exam Sepsis Stage: Ruled Out (Sepsis not definitively determined in the ER) Possible Source: Pulmonary Lactate Level 04/30/23 17:29: Lactic Acid Level 2.30*H 04/30/23 19:31: Lactic Acid Level 0.60 (PRINCESS MA MD) Time of Focused Exam: 18:35 Respiratory: Crackles (Bases, right greater than left), Other (On BiPAP) Cardiovascular: Regular Rate, Rhythm, No Murmur, Other (Moderate to severe peripheral edema of the lower extremities) Lactic Acid Level Laboratory Tests Test 04/30/23 17:29 04/30/23 19:31 Lactic Acid Level 2.30 MMOL/L (0.50-2.00) *H 0.60 MMOL/L (0.50-2.00) (PRINCESS MA MD) Within 3hrs of presentation: Admin ABX, Blood cultures prior to ABX's, Focus exam, Lactate level (PRINCESS MA MD) Progress/Results/Core Measures Suspected Sepsis SIRS Temperature: Pulse: Respiratory Rate: Laboratory Tests 04/30/23 17:28: White Blood Count 20.0H Blood Pressure / Mean: 04/30/23 17:29: Lactic Acid Level 2.30*H 04/30/23 19:31: Lactic Acid Level 0.60 Laboratory Tests 04/30/23 17:28: Creatinine 2.70H, INR Comment 1.0, Platelet Count 335, Total Bilirubin 0.5 (INDY MONTANEZ DO) Results/Orders Lab Results Laboratory Tests Test 04/30/23 17:28 04/30/23 17:29 04/30/23 17:38 04/30/23 17:41 Range/Units White Blood Count 20.0 H 4.3-11.0 10^3/uL Red Blood Count 3.14 L 4.30-5.52 10^6/uL Hemoglobin 8.7 L 13.3-17.7 g/dL Hematocrit 28 L 40-54 % Mean Corpuscular Volume 90 80-99 fL Mean Corpuscular Hemoglobin 28 25-34 pg Mean Corpuscular Hemoglobin Concent 31 L 32-36 g/dL Red Cell Distribution Width 18.6 H 10.0-14.5 % Platelet Count 335 130-400 10^3/uL Mean Platelet Volume 11.4 9.0-12.2 fL Immature Granulocyte % (Auto) 1 % Neutrophils (%) (Auto) 71 42-75 % Lymphocytes (%) (Auto) 14 12-44 % Monocytes (%) (Auto) 12 0-12 % Eosinophils (%) (Auto) 2 0-10 % Basophils (%) (Auto) 0 0-10 % Neutrophils # (Auto) 14.3 H 1.8-7.8 10^3/uL Lymphocytes # (Auto) 2.8 1.0-4.0 10^3/uL Monocytes # (Auto) 2.3 H 0.0-1.0 10^3/uL Eosinophils # (Auto) 0.4 H 0.0-0.3 10^3/uL Basophils # (Auto) 0.0 0.0-0.1 10^3/uL Immature Granulocyte # (Auto) 0.2 H 0.0-0.1 10^3/uL Neutrophils % (Manual) 75 % Lymphocytes % (Manual) 15 % Monocytes % (Manual) 5 % Eosinophils % (Manual) 5 % Platelet Estimate ADEQUATE Poikilocytosis SLIGHT Anisocytosis SLIGHT Prothrombin Time 13.7 12.2-14.7 SEC INR Comment 1.0 0.8-1.4 Activated Partial Thromboplast Time 22 L 24-35 SEC D-Dimer 1.58 H 0.00-0.49 UG/ML Sodium Level 143 135-145 MMOL/L Potassium Level 5.5 H 3.6-5.0 MMOL/L Chloride Level 107 98-107 MMOL/L Carbon Dioxide Level 25 21-32 MMOL/L Anion Gap 11 5-14 MMOL/L Blood Urea Nitrogen 99 H 7-18 MG/DL Creatinine 2.70 H 0.60-1.30 MG/DL Estimat Glomerular Filtration Rate 25 BUN/Creatinine Ratio 37 Glucose Level 310 H 70-105 MG/DL Calcium Level 8.8 8.5-10.1 MG/DL Corrected Calcium 9.4 8.5-10.1 MG/DL Total Bilirubin 0.5 0.1-1.0 MG/DL Aspartate Amino Transf (AST/SGOT) 26 5-34 U/L Alanine Aminotransferase (ALT/SGPT) 36 0-55 U/L Alkaline Phosphatase 52 40-136 U/L Troponin I 0.100 H <0.028 NG/ML C-Reactive Protein High Sensitivity 0.88 H 0.00-0.50 MG/DL B-Type Natriuretic Peptide 431.9 H <100.0 PG/ML Total Protein 6.3 L 6.4-8.2 GM/DL Albumin 3.3 3.2-4.5 GM/DL Lactic Acid Level 2.30 *H 0.50-2.00 MMOL/L SARS-CoV-2 RNA (RT-PCR) Not Detected Not Detecte Blood Gas Puncture Site LEFT RA Blood Gas Patient Temperature 37.6 Arterial Blood pH 7.26 *L 7.37-7.43 Arterial Blood Partial Pressure CO2 63 H 35-45 MMHG Arterial Blood Partial Pressure O2 247 H 79-93 MMHG Arterial Blood HCO3 27 23-27 MMOL/L Arterial Blood Total CO2 28.7 21.0-31.0 MMOL/L Arterial Blood Oxygen Saturation 98 94-100 % Arterial Blood Base Excess 0.7 -2.5-2.5 MMOL/L Howie Test YES-POS Blood Gas Ventilator Setting YES Blood Gas Inspired Oxygen 100 Test 04/30/23 19:31 Range/Units Lactic Acid Level 0.60 0.50-2.00 MMOL/L (PRINCESS MA MD) My Orders Orders - PRINCESS MA MD Fibrin Degradation Products (04/30/23 18:40) Troponin I [place] (04/30/23 18:40) Troponin I Jason (04/30/23 20:00) Enoxaparin Injection (Lovenox Injection) (04/30/23 20:00) Ed Admission (Communication) (04/30/23 20:09) Aspirin Tablet (Aspirin Tablet) (04/30/23 20:30) (PRINCESS MA MD) Medications Given in ED Current Medications Medications Dose Ordered Sig/[place] Route Start Time Stop Time Status Last Admin Dose Admin Albuterol/ Ipratropium 3 ml ONCE ONCE INH 04/30/23 17:30 04/30/23 17:32 DC 04/30/23 18:49 3 ML Aspirin 325 mg ONCE ONCE PO 04/30/23 20:30 04/30/23 20:31 DC 04/30/23 20:40 325 MG Enoxaparin Sodium 100 mg ONCE ONCE SC 04/30/23 20:00 04/30/23 20:01 DC 04/30/23 20:40 100 MG Nitroglycerin 0.4 mg STK-MED ONCE SL 04/30/23 17:25 04/30/23 17:27 DC 04/30/23 17:25 0.4 MG Piperacillin Sod/ Tazobactam Sod 4.5 gm/Sodium Chloride 100 ml @ 200 mls/hr ONCE ONCE IV 04/30/23 17:45 04/30/23 18:14 DC 04/30/23 18:22 200 MLS/HR Vancomycin HCl 1000 mg/Sodium Chloride 250 ml @ 250 mls/hr ONCE ONCE IV 04/30/23 17:45 04/30/23 18:44 DC 04/30/23 17:56 250 MLS/HR (PRINCESS MA MD) Vital Signs/I&O 04/30/23 04/30/23 04/30/23 04/30/23 17:20 17:29 18:51 20:49 Temp 37.6 37.6 Pulse 114 111 77 Resp 27 40 20 B/P (MAP) 147/78 (101) 116/64 Pulse Ox 100 100 100 O2 Delivery NIV Bilevel NIV Bilevel NIV Bilevel O2 Flow Rate 100.00 FiO2 60 (PRINCESS MA MD) Vital Signs/I&O Capillary Refill : (INDY MONTANEZ DO) Progress Note : Time: 17:39 Progress Note Patient initially with severe respiratory distress, started on BiPAP immediately on arrival and given sublingual nitroglycerin for concern of pulmonary edema given his hypertension, peripheral edema and recently stopping Lasix. This did seem to improve his overall respiratory status with decreased respiratory rate, increased oxygen saturation and improved tachycardia. In the process of starting IVs and getting labs, chest x-ray. We will go ahead and swab him for COVID as well. Get blood cultures, lactic acid, CRP and BNP to complete the evaluation. I will go ahead and give him broad-spectrum antibiotics with his recent diagnosis of pneumonia and admission to the hospital. (INDY MONTANEZ DO) Progress Note #1: Time: 18:42 Progress Note Care of this patient was assumed from Dr. Montanez at shift change. Patient appears stable on BiPAP at this time. Relaxed and able to converse with me on BiPAP. Vital signs are stable. Patient's reports that he returned home from the hospital last night and laid in his recliner. He did not get up to go to bed. He subsequently had an episode of chest pain of 15 to 20 minutes that resolved. He is not having chest pain now. I have reviewed his present labs. CBC is remarkable for leukocytosis of 20. His hemoglobin demonstrates chronic stable anemia. Reviewed his most recent echocardiogram from January. It demonstrated an EF of 55 to 60% with no disease. This calls heart failure into question when evaluating the etiology for his respiratory failure today. Patient does have history of COPD. He reports wheezing at home. He will be receiving a DuoNeb treatment shortly. On my exam he has decreased air movement bilaterally with spurred in the lower lung carr, particularly on the right. No wheezing was observed while on BiPAP. Chest x-ray seems most consistent with pneumonia. Patient's reports that his roller setter had ordered a follow- up CT scan to be performed this summer because of abnormality seen on a prior CT scan. She did not know any more details. Perhaps there is additional structural pathology is not yet known to this staff. Due to the complaint of chest pain, troponin and D-dimer have been added to his work-up here. Antibiotics have been initiated for presumptive treatment of pneumonia CRP was only 0.88. This brings the presence of pneumonia into question although he does have leukocytosis as well as a recent diagnosis of pneumonia. CMP was reviewed. Creatinine has improved to 2.7 from a peak of 3.0 on April 28. Potassium is mildly elevated at 5.5. Chemistry is otherwise relatively unremarkable acid was mildly elevated at 2.3. BNP was elevated at 432. This is mildly elevated when compared with his BNP from April 18 which was 377. Again, there is no evidence of heart failure based on his prior echocardiogram from January of this year. Return in was reviewed by me. There are patchy consolidations and infiltrates bilaterally and most prominently on the right. Radiologist's interpretation correlates with mine. Neither radiologist nor I appreciate significant heart failure on the chest x-ray. See report below. Progress Note #2: Time: 20:40 Progress Note Patient and his have been updated. He is still presently stable on BiPAP. He tolerates breaks off BiPAP to to drink. I discussed CODE STATUS with patient and his . He wishes to be a full code at this time. I have discussed the case with Dr. Gonzalez, harbor engineer on-call. He recommends continuing with aspirin and weight-based Lovenox. He also suggested Toprol-XL 25 mg p.o. now and daily. These recommendations were communicated to Dr. Barraza. Progress Note #3: Time: 21:36 Progress Note Report was given to Dr. Moulton in eICU. (PRINCESS MA MD) ECG Comment Sinus rhythm with a rate of 96 bpm. Normal intervals. Left axis deviation. T wave inversions in 1, aVL with some mild ST depressions in V45 and 6. No other ST or T wave abnormalities. No ectopy. No STEMI. (INDY MONTANEZ DO) Initial ECG Impression Date: Apr 30, 2023 Initial ECG Impression Time: 17:33 Initial ECG Rate: 96 Initial ECG Rhythm: S.Tach (PRINCESS MA MD) Diagnostic Imaging Diagonstic Imaging: Xray Plain Films/CT/US/NM/MRI: chest Comments CLAY: VINCENT JASSO MED REC#: [id number] PT STATUS: REG ER : 1950 PHYSICIAN: INDY MONTANEZ DO ADMIT DATE: 04/30/23/ER Draft Date of Exam:04/30/23 CHEST 1 VIEW, AP/PA ONLY EXAMINATION: Chest 1 view. HISTORY: Short of breath. COMPARISON: 04/19/2023. FINDINGS: There are multifocal airspace opacities, right greater than left. No pneumothorax. There is a small right effusion, unchanged. Heart size is normal. IMPRESSION: Multifocal airspace opacities, right greater than left with a small right effusion favored to represent pneumonia. Dictated on workstation # [id number] Dict: 04/30/23 1756 Trans: 04/30/231758 [facility] [id number] Interpreted by: LISA TREVIÑO MD (PRINCESS MA MD) Critical Care Note Critical Care Total Time (minutes) 60 (INDY MONTANEZ DO) Departure Communication (Admissions) Time/Spoke to Admitting Phy: 19:19 Dr. Barraza Time/Spoke to Consulting Phy: 20:35 Dr. Gonzalez (PRINCESS MA MD) Impression Primary Impression: Respiratory failure Qualified Codes: J96.00 - Acute respiratory failure, unspecified whether with hypoxia or hypercapnia Additional Impressions: Pneumonia Qualified Codes: J18.9 - Pneumonia, unspecified organism Peripheral edema Chronic kidney disease Qualified Codes: N18.9 - Chronic kidney disease, unspecified COPD exacerbation Elevated troponin Elevated d-dimer Disposition: ADMITTED INPATIENT Condition: Stable Admissions Decision to Admit Reason: Admit from ER (General) Decision to Admit/Date: Apr 30, 2023 Time/Decision to Admit Time: 19:19 (PRINCESS MA MD) Departure-Patient Inst. Referrals: MIKEY ZAZUETA APRN (PCP/Family) Primary Care Physician INDY MONTANEZ DO Apr 30, 2023 17:31 PRINCESS MA MD Apr 30, 2023 18:47
[2023-04-30 17:44] LABS: ABG BASE EXCESS 0.7 MMOL/L (-2.5-2.5); ABG OXYGEN SATURATION 98 % (94-100); ABG PCO2 63 MMHG (35-45); ABG PO2 247 MMHG (79-93); ABG TCO2 28.7 MMOL/L (21.0-31.0)
[2023-04-30 17:44] LABS: BASOPHILS % (AUTO) 0 % (0-10); EOSINOPHILS # (AUTO) 0.4 10^3/uL (0.0-0.3); EOSINOPHILS % (AUTO) 2 % (0-10); HEMATOCRIT 28 % (40-54); HEMOGLOBIN 8.7 g/dL (13.3-17.7); LYMPHOCYTES # (AUTO) 2.8 10^3/uL (1.0-4.0); LYMPHOCYTES % (AUTO) 14 % (12-44); MEAN CORPUSCULAR HEMOGLOBIN 28 pg (25-34); MEAN CORPUSCULAR HGB CONC 31 g/dL (32-36); MEAN CORPUSCULAR VOLUME 90 fL (80-99); MEAN PLATELET VOLUME 11.4 fL (9.0-12.2); MONOCYTES # (AUTO) 2.3 10^3/uL (0.0-1.0); MONOCYTES % (AUTO) 12 % (0-12); NEUTROPHILS # (AUTO) 14.3 10^3/uL (1.8-7.8); NEUTROPHILS % (AUTO) 71 % (42-75); PLATELET COUNT 335 10^3/uL (130-400)
[2023-04-30] MEDS ORDERED: VANCOMYCIN INJECTION 1,000 MG in NS (IVPB) 250 ML 250 ML IV ONE (17:45)
[2023-04-30] MEDS ORDERED: PIPERACILLIN SODIUM/TAZOBACTAM 4.5 GM in NS (IVPB) 100 ML 100 ML IV ONE (17:45)
[2023-04-30 17:47] LABS: ABG PH 7.26 (7.37-7.43); ALLENS TEST YES-POS
[2023-04-30 17:48] LABS: INSPIRED O2 100; PATIENT TEMP 37.6; VENTILATOR YES
[2023-04-30 18:00] LABS: PROTHROMBIN TIME PATIENT 13.7 SEC (12.2-14.7)
--- NOTE | 2023-04-30 18:00 | Diagnostic Imaging Report ---
EXAMINATION: Chest 1 view. HISTORY: Short of breath. COMPARISON: 04/19/2023. FINDINGS: There are multifocal airspace opacities, right greater than left. No pneumothorax. There is a small right effusion, unchanged. Heart size is normal. IMPRESSION: Multifocal airspace opacities, right greater than left with a small right effusion favored to represent pneumonia. Dictated by: Dictated on workstation # [email or web address]
[2023-04-30 18:02] LABS: ALBUMIN 3.3 GM/DL (3.2-4.5); POTASSIUM 5.5 MMOL/L (3.6-5.0)
[2023-04-30 18:03] LABS: CALCIUM 8.8 MG/DL (8.5-10.1)
[2023-04-30 18:05] LABS: TOTAL PROTEIN 6.3 GM/DL (6.4-8.2)
[2023-04-30 18:06] LABS: BILIRUBIN,TOTAL 0.5 MG/DL (0.1-1.0)
[2023-04-30 18:08] LABS: CREATININE SERUM 2.7 MG/DL (0.60-1.30)
[2023-04-30 18:30] LABS: ANISOCYTOSIS SLIGHT; EOSINOPHILS % (MANUAL) 5 %; LYMPHOCYTES % (MANUAL) 15 %; MONOCYTES % (MANUAL) 5 %; NEUTROPHILS % (MANUAL) 75 %; PLATELET ESTIMATE ADEQUATE; POIKILOCYTOSIS SLIGHT
[2023-04-30] MEDS ORDERED: ENOXAPARIN 100 MG/1 ML SYRINGE SC ONE (20:00)
[2023-04-30] MEDS ORDERED: ENOXAPARIN 40 MG/0.4 ML SYRINGE SC SCH (20:00)
[2023-04-30] MEDS ORDERED: ASPIRIN 325 MG TABLET PO ONE (20:30)
--- NOTE | 2023-04-30 21:09 | History & Physical ---
SHERI STONE MD 04/30/239: HPI History of Present Illness: CC: Shortness of breath Patient presents to the ED with shortness of breath. He was discharged from the hospital yesterday after being treated for respiratory distress thought to be secondary to pneumonia. at bedside states that patient was doing well on discharge until he got home when he started to have difficulty breathing. He was having significant shortness of breath even with ambulating to the car. He was also noticing chest pain last night. This continued to worsen until today when he was ultimately brought to the ED. He was noted to have oxygen saturations of 70% not well managed on 4 L of oxygen thus requiring BiPAP. Of note, patient has a history of COPD is on 4 L of oxygen at baseline. states that patient has been in and out of the hospital multiple times over the last couple of months for respiratory distress. Various causes have included pneumonia and fluid buildup. Source: patient, family Exam Limitations: no limitations Date seen by provider: Apr 30, 2023 Time Seen by Provider: 20:55 Attending Physician Jasmin Bland Aprn PCP Admitting Physician: Dr. Deyanira Bacon Attending Physician: Dr. 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 Patients Allergies have been reviewed. Allergies Coded Allergies: liraglutide (Verified Allergy, Unknown, 09/06/21) [id number] Hx Patient Social History Marrital Status: Drug of Choice: Occasional cannabis Smoking Status: Former Smoker Recent Hopitalizations: Yes Alcohol Use?: No Immunizations Up To Date Tetanus Booster (TDap): Unknown First/Initial COVID19 Vaccinat: NOVEMBER 2020, SHRUTHI AND SHRUTHI Second COVID19 Vaccination Nomi: NOVEMBER 2020, SHRUTHI AND SHRUTHI Third COVID19 Vaccination Date: NOVEMBER 2020, SHRUTHI AND SHRUTHI Past Medical History COPD Diabetes Chronic kidney disease Hypertension Family Medical History Significant Family History: No Pertinent Family Hx Family History: Patient reports no known family medical history. Review of Systems ([facility]) Constitutional: No chills; dizziness; No fever; weakness EENTM: No blurred vision Respiratory: dyspnea on exertion, short of breath Cardiovascular: chest pain, edema; No palpitations Gastrointestinal: No abdominal pain, No diarrhea, No nausea, No vomiting Genitourinary: No dysuria Musculoskeletal: No joint swelling, No muscle pain Skin: No rash Psychiatric/Neurological: Denies Headache; Weakness Reviewed Test Results Reviewed Test Results Lab Laboratory Tests 04/30/23 17:28 Radiology Chest x-ray (04/30/23): IMPRESSION: Multifocal airspace opacities, right greater than left with a small right effusion favored to represent pneumonia. Physical Exam-([facility]) Physical Exam Vital Signs VS - Last 72 Hours, by Label 04/30/23 04/30/23 04/30/23 04/30/23 17:20 17:29 18:51 20:49 Temp 37.6 37.6 Pulse 114 111 77 Resp 27 40 20 B/P (MAP) 147/78 (101) 116/64 Pulse Ox 100 100 100 O2 Delivery NIV Bilevel NIV Bilevel NIV Bilevel O2 Flow Rate 100.00 FiO2 60 04/30/23 04/30/23 04/30/23 04/30/23 21:15 21:15 21:26 22:15 Temp 36.4 Pulse 85 Pulse Ox 98 98 100 O2 Delivery Nasal Cannula Nasal Cannula NIV Bilevel O2 Flow Rate 6.00 6.00 60.00 04/30/23 04/30/23 22:36 22:44 Pulse 73 75 Resp 22 Pulse Ox 100 100 O2 Flow Rate 60.00 FiO2 60 Capillary Refill : General Appearance: no apparent distress HEENT: PERRL/EOMI, normal ENT inspection Neck: non-tender, full range of motion Respiratory: chest non-tender, no respiratory distress (on BiPAP), no accessory muscle use, wheezing Cardiovascular: regular rate, rhythm, no murmur, other (2+ pitting edema) Gastrointestinal: normal bowel sounds, non tender Back: normal inspection Extremities: normal range of motion Skin: warm/dry Assessment/Plan Assessment/Plan Admission Dx Respiratory distress Admission Status: Inpatient Order (span 2 midnights) Reason for Inpatient Admission: Respiratory distress requiring BiPAP, concern for PE, possible pneumonia (1) Respiratory distress Status: Acute Assessment & Plan: Unknown etiology at this point Unlikely to be secondary to heart failure as patient has relatively normal heart function Unlikely to be edema based on lung exam and chest x-ray results May be secondary to pneumonia elevated D-dimer also concerning for PE, manage per below Continue on BiPAP, wean as tolerated. Baseline oxygen requirement is 4L at home. Concern for malignancy due to patient report of nodules on previous CT scan from January 2023 (2) COPD exacerbation Status: Acute Assessment & Plan: Concern for pneumonia due to elevated WBC and continued evidence of pneumonia on chest x-ray. s/p 1 dose of vancomycin and zosyn in the ED Will continue vanc and zosyn Continue home inhalers Wean oxygen as tolerated IV solumedrol 80mg daily (3) Elevated d-dimer Status: Acute Assessment & Plan: Concern for PE given elevated d-dimer and sudden onset shortness of breath Patient is a poor candidate for CTA due to poor kidney function Will obtain V/Q scan tomorrow Starting therapeutic lovenox and continue daily aspirin Consulting cardiology in the AM (4) Hypertension Status: Chronic Assessment & Plan: Holding anti-hypertensives for now given normal blood pressure at this time Can resume as tolerated Qualifiers: Qualified Codes: I10 - Essential (primary) hypertension (5) CAD (coronary artery disease) Onset Date: Unknown Status: Chronic Assessment & Plan: Continue home aspirin and statin Admission EKG and troponin at baseline Qualifiers: Qualified Codes: I25.10 - Atherosclerotic heart disease of [place] coronary artery without angina pectoris (6) Chronic kidney disease Status: Chronic Assessment & Plan: Creatinine of 2.7, stable and improved from discharge lab work from yesterday Qualifiers: Qualified Codes: N18.9 - Chronic kidney disease, unspecified (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 Onset Date: Unknown Status: Chronic Assessment & Plan: Elevated glucose on admission Will continue insulin detemir at half of home dose with sliding scale insulin on board (8) Anemia Status: Chronic Assessment & Plan: at baseline, continue to monitor with daily CBC Qualifiers: Qualified Codes: D64.9 - Anemia, unspecified (9) Hyperkalemia Status: Acute Assessment & Plan: K 5.5 on admission, will continue to monitor with daily CMP DEYANIRA BACON MD 05/01/23 1259: Home Medications Allergies Coded Allergies: liraglutide (Verified Allergy, Unknown, 09/06/21) [id number] Hx Family Medical History Family History: Patient reports no known family medical history. Supervisory-Addendum Brief Supervisory Addendum I personally performed the H&P on 05/01/23 however case and plan was discussed with resident in real time on 04/30/23, discussed case with resident and concur with resident documentation of history, physical exam, assessment and treatment plan unless otherwise noted. A/P Acute on chronic Respiratory Failure with hypoxia AECOPD HCAP Normocytic Anemia CKD IV Type 2 IN Hyperkalemia HTN IDDM CAD Debility Admit to ICU. Patient is requiring bipap. This AM had hypoglycemia. Will stop long acting insulin and just have SSI. Check blood sugars q 6hrs while NPO on bipap. CT chest pending. Will transfuse 1 unit pRBCs. Discussed plan with Yuridia and she said that she would be arriving soon. Revisited code status and she states that he wants to be intubated and everything done because "he is not ready to give up the fight". SHERI STONE MD Apr 30, 2023 21:09 DEYANIRA BACON MD May 01, 2023 12:59
--- NOTE | 2023-04-30 21:35 | Tele-ICU Consult ---
History of Present Illness History of Present Illness Date Seen by Provider: Apr 30, 2023 Time Seen by Provider: 21:25 History of Present Illness 72 yo M came to ED with cc of SOB. Hx of COPD Just discharged, unable to get up from venkat, with SOB, weakness, CP, initially has SpO2 in 70's at first, CXR shows bilateral opacities with possible effusion on right, diaphragms are elevated Now on 6 lpm NC SpO2 98%, Thought to be in CHF with new edema, given BiPAP SL NTG with improvement As OP ? of lung mass on CT, supposed to have repeat Cr 2.7, Has CKD CXR looks like PNA with small right effusion, got theraputic dose of Lovenox Allergies and Home Medications Allergies Coded Allergies: liraglutide (Verified Allergy, Unknown, 09/06/21) Home Medications Albuterol Sulfate 18 Gm Hfa.aer.ad, 2 PUFF INH Q4H PRN for SHORTNESS OF BREATH, (Reported) Alogliptin Benzoate 6.25 Mg Tablet, 6.25 MG PO DAILY, (Reported) Amlodipine Besylate 5 Mg Tablet, 5 MG PO DAILY Prescribed by: DEYANIRA ALLAN on 04/29/23 1054 Aspirin 81 Mg Tablet.dr, 81 MG PO DAILY, (Reported) Atorvastatin Calcium 40 Mg Tablet, 40 MG PO 1700, (Reported) Budesonide/Glycopyr/Formoterol 160 Mcg-9 Mcg-4.8 Mcg/Actuation Hfa.aer.ad, 2 PUFF IH BID, (Reported) Carvedilol 25 Mg Tablet, 12.5 MG PO BID WITH MEALS, (Reported) TAKES (25MG) TABLET Clonidine HCl 0.1 Mg Tablet, 0.1 MG PO TID Prescribed by: DEYANRIA ALLAN on 04/29/23 1054 Clopidogrel Bisulfate 75 Mg Tablet, 75 MG PO DAILY, (Reported) Cyanocobalamin (Vitamin B-12) 1,000 Mcg Tablet, 1,000 MCG PO DAILY, (Reported) Fluticasone Propionate 50 Mcg/Actuation [place].susp, 1-2 SPRAY NSEACH DAILY, (Reported) Folic Acid 0.4 Mg Tablet, 0.4 MG PO DAILY, (Reported) Insulin Determir 100 Unit/Ml Soln, 40 UNIT SQ BID Prescribed by: DEYANIRA ALLAN on 04/29/23 105 Montelukast Sodium 10 Mg Tablet, 10 MG PO 1700, (Reported) Nitroglycerin 0.4 Mg Tab.subl, 0.4 MG SL UD PRN for CHEST PAIN, (Reported) Pantoprazole Sodium 40 Mg Tablet.dr, 40 MG PO DAILY, (Reported) Tamsulosin HCl 0.4 Mg Cap, 0.4 MG PO 1700, (Reported) Past Medical/Social/Family Hx Patient Social History Tobacco Use?: Yes Use of E-Cig and/or Vaping dev: No Substance use?: No Alcohol Use?: No Immunizations Up To Date First/Initial COVID19 Vaccinat: NOVEMBER 2020, SHRUTHI AND SHRUTHI Second COVID19 Vaccination Nomi: NOVEMBER 2020, SHRUTHI DEIDRE SHRUTHI Tetanus Booster (TDap): Unknown Hepatitis A: No Hepatitis B: No TB Skin Test: Negative Date of Pneumonia Vaccine: Jul 25, 2017 Current Status Communicates: Verbally Primary Language: Malagasy Preferred Spoken Language: Malagasy Review of Systems Constitutional: see HPI EENTM: see HPI Respiratory: see HPI Cardiovascular: see HPI Gastrointestinal: see HPI Genitourinary: see HPI Musculoskeletal: see HPI Skin: see HPI Psychiatric/Neurological: See HPI Focused Exam Lactate Level 04/30/23 17:29: Lactic Acid Level 2.30*H 04/30/23 19:31: Lactic Acid Level 0.60 Height, Weight, BMI Height: 5'11.00" Weight: 225lbs. 0.0oz. 102.352188ha; 35.99 BMI Method:Stated Lactic Acid Level Laboratory Tests Test 04/30/23 17:29 04/30/23 19:31 Lactic Acid Level 2.30 MMOL/L (0.50-2.00) *H 0.60 MMOL/L (0.50-2.00) Exam Exam Patient acknowledged, consented, and participated in this virtual visit which was conducted using real time audio/video Vital Signs Date Time Temp Pulse Resp B/P (MAP) Pulse Ox O2 Delivery O2 Flow Rate FiO2 04/30/23 20:49 37.6 77 20 116/64 100 NIV Bilevel 04/30/23 18:51 NIV Bilevel 60 04/30/23 17:29 111 40 100 100.00 04/30/23 17:20 37.6 114 27 147/78 (101) 100 NIV Bilevel Height & Weight Height: 5'11.00" Weight: 225lbs. 0.0oz. 102.631209pc; 35.99 BMI Method:Stated General Appearance: WD/WN, Anxious Respiratory: Wheezing (wheezing on left, decreased BS on right with crackles) Cardiovascular: Regular Rate, Rhythm Gastrointestinal: normal bowel sounds, non tender, soft, no organomegaly Extremity: Pedal Edema (+3 bilateral leg edema) Neurologic/Psychiatric: Alert, Oriented x3 Results Lab Laboratory Tests 04/30/23 17:28 Assessment/Plan Assessment/Plan PNA, COPD, doubt pulm emb, will continue IV Vanco and Zosyn monitor SpO2, appears much improved compared to when first arrived in ED Critical Care: Critically Ill Patient Time spent with patient (mins): 25 CAMERON CHEUNG MD Apr 30, 2023 21:35
[2023-04-30] MEDS ORDERED: RT-ALBUTEROL SULF 2.5 MG/3 ML PRE-MIX VIAL INH PRN (22:15)
[2023-04-30] MEDS ORDERED: VANCOMYCIN INJECTION 0.1 MG in NS (IVPB) 250 ML 250 ML IV SCH (22:30)
[2023-04-30] MEDS: VANCOMYCIN 1 GM/NS 250 ML IVPB IV SCH ×2 (23:52)
[2023-04-30] MEDS: PIPERACILLIN SODIUM/TAZOBACTAM 4.5 GM in NS (IVPB) 100 ML 100 ML IV SCH (23:53)
[2023-04-30] MEDS: inSUlin DETERMIR 1 UNIT/0.01 ML (CHARGE PER UNIT) SQ SCH (23:55)
[2023-05-01] MEDS ORDERED: NS IV 500 ML 500 ML IV PRN (00:45)
[2023-05-01] MEDS: RT-Ipratropium/Albuterol NEB 3 ML VIAL INH SCH ×6 (02:01→21:51)
[2023-05-01 02:02] VITALS: BP_DIAS 107
--- NOTE | 2023-05-01 04:26 | Tele-ICU Progress Note ---
Subjective Date Seen by a Provider: May 01, 2023 Time Seen by a Provider: 04:25 Subjective/Events-last exam called for DVT prophylaxis, pt has CKD, Cr 2.7, will give SQ heparin 5000 U bid Jorge Cheung MD Sepsis Event Evaluation Height, Weight, BMI Height: 5'11.00" Weight: 225lbs. 0.0oz. 102.950157al; 31.18 BMI Method:Stated Focused Exam Lactate Level 04/30/23 17:29: Lactic Acid Level 2.30*H 04/30/23 19:31: Lactic Acid Level 0.60 Time of Focused Exam: 18:35 Exam Exam Patient acknowledged, consented, and participated in this virtual visit which was conducted using real time audio/video Vital Signs Date Time Temp Pulse Resp B/P (MAP) Pulse Ox O2 Delivery O2 Flow Rate FiO2 05/01/23 02:02 69 25 40.00 05/01/23 02:00 NIV Bilevel 40.00 05/01/23 01:00 71 05/01/23 00:00 36.4 04/30/23 23:59 100 NIV Bilevel 60 04/30/23 22:44 75 100 60 04/30/23 22:36 73 22 100 60.00 04/30/23 22:15 100 NIV Bilevel 60.00 04/30/23 21:26 85 04/30/23 21:15 98 Nasal Cannula 6.00 04/30/23 21:15 36.4 98 Nasal Cannula 6.00 04/30/23 20:49 37.6 77 20 116/64 100 NIV Bilevel 04/30/23 18:51 NIV Bilevel 60 04/30/23 17:29 111 40 100 100.00 04/30/23 17:20 37.6 114 27 147/78 (101) 100 NIV Bilevel I & O 05/01/23 06:59 Intake Total 350 ml Output Total 1375 ml Balance -1025 ml Height & Weight Height: 5'11.00" Weight: 225lbs. 0.0oz. 102.241765ln; 31.18 BMI Method:Stated General Appearance: WD/WN, Anxious Respiratory: Wheezing (wheezing on left, decreased BS on right with crackles) Cardiovascular: Regular Rate, Rhythm Gastrointestinal: normal bowel sounds, non tender Extremity: Pedal Edema (+3 bilateral leg edema) Neurologic/Psychiatric: Alert, Oriented x3 Results Lab Laboratory Tests 04/30/23 17:28 Assessment/Plan Assessment/Plan called for DVT prophylaxis, pt has CKD, Cr 2.7, will give SQ heparin 5000 U bid Jorge Cheung MD Critical Care: Critically Ill Patient Time spent with patient (mins): 10 CAMERON CHEUNG MD May 01, 2023 04:26
[2023-05-01 04:40] LABS: BASOPHILS % (AUTO) 0 % (0-10); EOSINOPHILS # (AUTO) 0.3 10^3/uL (0.0-0.3); EOSINOPHILS % (AUTO) 2 % (0-10); HEMATOCRIT 23 % (40-54); HEMOGLOBIN 7.1 g/dL (13.3-17.7); LYMPHOCYTES # (AUTO) 0.9 10^3/uL (1.0-4.0); LYMPHOCYTES % (AUTO) 7 % (12-44); MEAN CORPUSCULAR HEMOGLOBIN 28 pg (25-34); MEAN CORPUSCULAR HGB CONC 31 g/dL (32-36); MEAN CORPUSCULAR VOLUME 89 fL (80-99); MEAN PLATELET VOLUME 11.6 fL (9.0-12.2); MONOCYTES # (AUTO) 1.1 10^3/uL (0.0-1.0); MONOCYTES % (AUTO) 9 % (0-12); NEUTROPHILS # (AUTO) 10.2 10^3/uL (1.8-7.8); NEUTROPHILS % (AUTO) 82 % (42-75); PLATELET COUNT 268 10^3/uL (130-400); WHITE BLOOD COUNT 12.5 10^3/uL (4.3-11.0)
[2023-05-01 04:56] LABS: ALBUMIN 2.8 GM/DL (3.2-4.5); POTASSIUM 5.1 MMOL/L (3.6-5.0)
[2023-05-01 04:57] LABS: CALCIUM 8.1 MG/DL (8.5-10.1)
[2023-05-01 04:58] LABS: TOTAL PROTEIN 5.5 GM/DL (6.4-8.2)
[2023-05-01 05:00] LABS: BILIRUBIN,TOTAL 0.4 MG/DL (0.1-1.0)
[2023-05-01 05:02] LABS: CREATININE SERUM 2.29 MG/DL (0.60-1.30)
[2023-05-01] MEDS: PIPERACILLIN SODIUM/TAZOBACTAM 4.5 GM in NS (IVPB) 100 ML 100 ML IV SCH ×2 (06:03→17:14)
[2023-05-01] MEDS: PANTOPRAZOLE 40 MG (PROTONIX) TAB PO SCH (06:03)
[2023-05-01] MEDS: POTASSIUM CL 10MEQ/50ML IVPB 50 ML IV SCH (06:10)
[2023-05-01] MEDS: POTASSIUM CHLORIDE 20 MEQ TABLET PO SCH (06:10)
[2023-05-01] MEDS: inSUlin ASPART 1 UNIT/0.01 ML (PER UNIT) SC SCH ×4 (06:11→20:49)
[2023-05-01] MEDS: MAGNESIUM 1 GM/100 ML IVPB 100 ML IV SCH (06:14)
[2023-05-01 06:56] VITALS: BP_DIAS 107
[2023-05-01] MEDS: FOLIC ACID 1 MG TAB PO SCH (09:00)
[2023-05-01] MEDS ORDERED: ALOGLIPTIN BENZOATE 6.25 MG PO SCH (09:00)
[2023-05-01] MEDS: NS IV 1000 ML 1,000 ML IV SCH ×2 (09:00→23:44)
[2023-05-01] MEDS ORDERED: methylPREDNISolone INJ 40 MG/ML VIAL IV ONE (09:00)
--- NOTE | 2023-05-01 09:28 | Consultation-Cardiology ---
[facility]-Cardiology Cardiology Consultation: Date of Consultation 05/01/23 Time Seen by a Provider: 09:10 Date of Admission 04-30-23 Attending Physician Jasmin Bland Aprn Admitting Physician Admitting Physician: Deyanira Allan MD Attending Physician: Deyanira Allan MD Consulting Physician Ani Gonzalez MD [employer] [place]: Dr. Pizarro HPI: Chief Complaint: Resp failure Mr. Jasso is a 72 yr old male admitted to ICU 8 from the ED. He is currently requiring Bi-pap; communication is limited. He is reporting SOB and is anxious. Review of chart has been done. He was dismissed from [facility] on 04-29-23 and re- admitted with increasing SOB yesterday. He was recently treated for acute exacerbation of COPD and pneumonia. He was dismissed home and progressively became more SOB prompting him to return to the ED. He is oxygen dependant at home on 4L/NC. No c/o CP per the ED notes. Review of Systems-Cardiology Review of Systems Other comments To the extent it could be obtained is as per the [facility] NRY-Pjffwy-Pnclfr Hx Patient Social History Marrital Status: Smoking Status: Former Smoker Alcohol Use?: No Pt feels they are or have been: No Immunizations Up To Date Tetanus Booster (TDap): Unknown Date of Pneumonia Vaccine: Jul 25, 2017 Date of Influenza Vaccine: Jul 08, 2021 Past Medical History PMH As described under Assessment. Family Medical History Family Medical History: He previously does not report fam h/o early CAD Family History: Patient reports no known family medical history. Allergies and Home Medications Allergies Coded Allergies: liraglutide (Verified Allergy, Unknown, 09/06/21) Patient Home Medication List Albuterol Sulfate (Ventolin Hfa) 18 Gm Hfa.aer.ad, 2 PUFF INH Q4H PRN for SHORTNESS OF BREATH, (Reported) Entered as Reported by: GEORGINA ALVAREZ on 06/11/19 9569 Last Action: Reviewed Alogliptin Benzoate (Nesina) 6.25 Mg Tablet, 6.25 MG PO DAILY, (Reported) Entered as Reported by: JIM MCDONALD on 02/26/23 1122 Last Action: Reviewed Amlodipine Besylate (Amlodipine Besylate) 5 Mg Tablet, 5 MG PO DAILY Prescribed by: DEYANIRA ALLAN on 04/29/23 1054 Last Action: Reviewed Aspirin (Aspirin EC) 81 Mg Tablet.dr, 81 MG PO DAILY, (Reported) Entered as Reported by: MARLY NAVARRETE on 10/06/17 1348 Last Action: Reviewed Atorvastatin Calcium (Lipitor) 40 Mg Tablet, 40 MG PO 1700, (Reported) Entered as Reported by: DESEAN COE on 12/23/18 0731 Last Action: Reviewed Budesonide/Glycopyr/Formoterol (Breztri Aerosphere Inhaler) 160 Mcg-9 Mcg-4.8 Mcg/Actuation Hfa.aer.ad, 2 PUFF IH BID, (Reported) Entered as Reported by: JIM MCDONALD on 02/26/23 112 Last Action: Reviewed Carvedilol (Carvedilol) 25 Mg Tablet, 12.5 MG PO BID WITH MEALS, (Reported) Entered as Reported by: RADHA MACKAY on 05/16/21 0819 Last Action: Reviewed Clonidine HCl (Clonidine HCl) 0.1 Mg Tablet, 0.1 MG PO TID Prescribed by: DEYANIRA ALLAN on 04/29/23 105 Last Action: Reviewed Clopidogrel Bisulfate (Clopidogrel) 75 Mg Tablet, 75 MG PO DAILY, (Reported) Entered as Reported by: GEORGINA ALVAREZ on 05/16/15 1119 Last Action: Reviewed Cyanocobalamin (Vitamin B-12) (Vitamin B-12) 1,000 Mcg Tablet, 1,000 MCG PO DAILY, (Reported) Entered as Reported by: JIM MCDONALD on 02/26/23 112 Last Action: Reviewed Fluticasone Propionate (Flonase Allergy Relief) 50 Mcg/Actuation Adrian.susp, 1-2 SPRAY NSEACH DAILY, (Reported) Entered as Reported by: JIM MCDONALD on 01/19/21 112 Last Action: Reviewed Folic Acid (Folic Acid) 0.4 Mg Tablet, 0.4 MG PO DAILY, (Reported) Entered as Reported by: JIM MCDONALD on 02/26/231121 Last Action: Reviewed Insulin Determir (Levemir) 100 Unit/Ml Soln, 40 UNIT SQ BID Prescribed by: DEYANIRA ALLAN on 04/29/23 105 Last Action: Reviewed Montelukast Sodium (Montelukast Sodium) 10 Mg Tablet, 10 MG PO 1700, (Reported) Entered as Reported by: JIM MCDONALD on 01/19/21 1126 Last Action: Reviewed Nitroglycerin (Nitroglycerin) 0.4 Mg Tab.subl, 0.4 MG SL UD PRN for CHEST PAIN, (Reported) Entered as Reported by: JIM MCDONALD on 01/19/21 1126 Last Action: Reviewed Pantoprazole Sodium (Pantoprazole Sodium) 40 Mg Tablet.dr, 40 MG PO DAILY, (Reported) Entered as Reported by: GEORGINA ALVAREZ on 05/16/15 1118 Last Action: Reviewed Tamsulosin HCl (Flomax) 0.4 Mg Cap, 0.4 MG PO 1700, (Reported) Entered as Reported by: DESEAN COE on 12/23/18 0731 Last Action: Reviewed Discontinued Medications Furosemide (Furosemide) 20 Mg Tablet, 20 MG PO DAILY, (Reported) Entered as Reported by: JIM MCDONALD on 04/18/23 1533 Glipizide (Glipizide) 5 Mg Tablet, 5 MG PO BID WITH MEALS, (Reported) Entered as Reported by: JIM MCDONALD on 04/03/23 1607 Insulin Glargine,Hum.rec.anlog (Lantus Solostar) 100 Unit/Ml (3 Ml) Insuln.pen, 20-25 UNITS SQ 1200 PRN for HYPERGLYCEMIA, (Reported) Entered as Reported by: MARLY NAVARRETE on 10/06/17 1538 Lisinopril (Lisinopril) 40 Mg Tablet, 20 MG PO DAILY, (Reported) Entered as Reported by: MARLY NAVARRETE on 10/06/17 1535 Physical Exam-Cardiology Physical Exam Vital Signs/I&O 05/02/23 05/02/23 05/02/23 05/02/23 00:00 01:00 01:00 02:00 Pulse 89 82 94 88 B/P (MAP) 174/87 (116) 180/80 (113) 174/78 (110) Pulse Ox 100 100 100 O2 Delivery NIV Bilevel NIV Bilevel NIV Bilevel O2 Flow Rate 40.00 40.00 40.00 05/02/23 05/02/23 05/02/23 05/02/23 02:33 03:00 04:00 04:00 Pulse 92 92 93 Resp 26 B/P (MAP) 172/86 (114) 171/95 (120) Pulse Ox 100 97 94 O2 Delivery NIV Bilevel NIV Bilevel NIV Bilevel O2 Flow Rate 30.00 40.00 40.00 FiO2 30 05/02/23 05/02/23 05/02/23 05/02/23 05:00 06:00 07:00 07:00 Pulse 95 92 91 84 B/P (MAP) 171/82 (111) 175/84 (114) 155/95 (115) Pulse Ox 100 96 95 O2 Delivery NIV Bilevel NIV Bilevel NIV Bilevel O2 Flow Rate 40.00 40.00 40.00 05/02/23 05/02/23 05/02/23 05/02/23 07:38 07:44 07:45 07:51 Temp 36.6 Pulse Ox 93 96 96 O2 Delivery Vapotherm Vapotherm Vapotherm O2 Flow Rate 40.00 40.00 40.00 FiO2 30 50 50 05/02/23 05/02/23 05/02/23 05/02/23 07:53 08:00 08:00 09:00 Pulse 104 100 B/P (MAP) 159/68 (98) Pulse Ox 97 89 99 O2 Delivery Vapotherm NIV Bilevel Vapotherm Vapotherm O2 Flow Rate 40.00 40.00 40.00 50.00 50.00 50.00 FiO2 30 05/02/23 05/02/23 05/02/23 10:00 10:03 11:00 Pulse 96 98 B/P (MAP) 140/67 (91) 153/92 (112) Pulse Ox 100 100 95 O2 Delivery Vapotherm Vapotherm Vapotherm O2 Flow Rate 40.00 40.00 40.00 30.00 30.00 FiO2 50 05/02/23 00:00 Intake Total 500 ml Output Total 850 ml Balance -350 ml Capillary Refill : Constitutional: AAO x 3, well-developed, well-nourished, other (anxious) HEENT: hearing is well preserved Neck: No carotid bruit; carotid pulses are 2 + bilaterally Respiratory: other (coarse breathsounds throughout, dimininished lower lobes bilat) Cardiovascular: regular rate-rhythm; No JVD; S1 and S2 Gastrointestinal: No tender; soft; No guarding; audible bowel sounds Extremities: other (bilat LE pitting edema) Neurologic/Psychiatric: other (moves all extremities) Skin: No rash on exposed areas, No ulcerations on exposed areas Data Review Labs Laboratory Tests 05/01/23 12:59: White Blood Count 11.8H, Red Blood Count 2.60L, Hemoglobin 7.2L, Hematocrit 23L, Mean Corpuscular Volume 90, Mean Corpuscular Hemoglobin 28, Mean Corpuscular Hemoglobin Concent 31L, Red Cell Distribution Width 18.4H, Platelet Count 209, Mean Platelet Volume 11.1, Sodium Level 143, Potassium Level 4.6, Chloride Level 108H, Carbon Dioxide Level 28, Anion Gap 7, Blood Urea Nitrogen 94H, Creatinine 2.18H, Estimat Glomerular Filtration Rate 32, BUN/Creatinine Ratio 43, Glucose Level 38*L, Calcium Level 8.2L 05/01/23 16:25: Glucometer 21*L 05/01/23 17:28: Glucometer 97 05/01/23 18:22: Glucometer 87 05/01/23 20:40: Glucometer 108 05/02/23 04:21: White Blood Count 10.2, Red Blood Count 2.77L, Hemoglobin 7.8L, Hematocrit 25L, Mean Corpuscular Volume 89, Mean Corpuscular Hemoglobin 28, Mean Corpuscular Hemoglobin Concent 32, Red Cell Distribution Width 18.5H, Platelet Count 235, Mean Platelet Volume 11.7, Immature Granulocyte % (Auto) 1, Neutrophils (%) (A uto) 95H, Lymphocytes (%) (Auto) 3L, Monocytes (%) (Auto) 2, Eosinophils (%) (Auto) 0, Basophils (%) (Auto) 0, Neutrophils # (Auto) 9.7H, Lymphocytes # (Auto) 0.3L, Monocytes # (Auto) 0.2, Eosinophils # (Auto) 0.0, Basophils # (Auto) 0.0, Immature Granulocyte # (Auto) 0.1, Sodium Level 144, Potassium Level 4.7, Chloride Level 110H, Carbon Dioxide Level 21, Anion Gap 13, Blood Urea Nitrogen 84H, Creatinine 1.98H, Estimat Glomerular Filtration Rate 36, BUN/Creatinine Ratio 42, Glucose Level 185H, Calcium Level 8.4L, Corrected Calcium 9.3, Total Bilirubin 0.4, Aspartate Amino Transf (AST/SGOT) 19, Alanine Aminotransferase (ALT/SGPT) 26, Alkaline Phosphatase 47, Total Protein 5.6L, Albumin 2.9L 05/02/23 05:17: Glucometer 192H 05/02/23 10:39: Glucometer 246H Microbiology 04/30/23 MRSA Screen - Final, Complete MRSA not isolated 04/30/23 Blood Culture - Preliminary, Resulted No growth Radiology NAME: [facility] REC#: [id number] PT STATUS: REG ER : 1950 PHYSICIAN: INDY MONTANEZ DO ADMIT DATE: 04/30/23/ER Signed Date of Exam:04/30/23 CHEST 1 VIEW, AP/PA ONLY EXAMINATION: Chest 1 view. HISTORY: Short of breath. COMPARISON: 04/19/2023. FINDINGS: There are multifocal airspace opacities, right greater than left. No pneumothorax. There is a small right effusion, unchanged. Heart size is normal. IMPRESSION: Multifocal airspace opacities, right greater than left with a small right effusion favored to represent pneumonia. Dictated by: Dictated on workstation # [id number] Dict: 04/30/23 1756 Trans: 04/30/231947 PJE [id number] Interpreted by: LISA TREVIÑO MD Electronically signed by: LISA TREVIÑO MD 04/30/231947 ECG Impression ECG Comment ST with LBBB A/P-Cardiology Assessment/Admission Diagnosis Acute on chronic respiratory failure likely multi-factorial d/t acute on chronic exacerbation of COPD, acute on chronic diastolic CHF, pneumonia - requiring Bi-pap tx - Echocardiogram of 02-26-[address] Pizarro showed LVEF 55-60% - CT of the chest 04-18-23: 1. Airspace and groundglass opacities in the lungs bilaterally,concerning for infection. Aspiration and an inflammatory process or in the differential as well. Underlying neoplasm is not excluded. Chronic scarring and bullous disease in the right lung apex. Small left and trace right pleural effusions. Hypertension DM - management per medical services. CAD - Cardiac cath of by Dr. Pizarro showed: Moderate disease in the mid right coronary artery with occlusion of the distal right PDA, small artery not amendable to intervention. Patent multiple stents in the proximal and mid LAD and proximal mid circumflex artery with mild to moderate in-stent restenosis and mild to moderate coronary artery disease in the left system nonobstructive disease. Normal left ventricular end-diastolic pressure - medical management advised at that time - continue antiplatelet therapy. Positive troponin (seen at time of last admission and again at time of this admission) - likely type II IN due to acute respiratory failure with hypoxia Reported h/o PAD in previous notes - details unknown Stage IV chronic kidney disease Ex tobaccoism, patient recently quit smoking Left bundle branch block - chronic Anemia - management per medical services Moderate to severe back pain. Discussion and Recomendations Complex management Acute on chronic resp failure likely d/t pneumonia, acute on chronic exacerbation of COPD, chronic diastolic CHF - management of COPD per medical services - management of pneumonia per medical services Chronic diastolic CHF - treat with diuretics as indicated/tolerated Bilat LE coreylliing - stop Norvasc Chronically elevated troponin - likely Type 2 IN secondary to hypoxia Known h/o CAD - continue ASA and Plavix CKD 4 - monitor renal function closely - avoid nephrotoxic agents - consider transfer to tertiary care facility with nephrology services Anemia - management per medical services Further recs will be based on his hospital course We would like to thank medical services for this consult ENRIQUE HAYES May 01, 2023 09:28
--- NOTE | 2023-05-01 10:00 | Tele-ICU Progress Note ---
Subjective Date Seen by a Provider: May 01, 2023 Time Seen by a Provider: 10:00 Subjective/Events-last exam (Tele-ICU Physician , Progress Note ) Service provided via interactive audio and video telecommunications [facility] to a patient admitted to ICU bed in [facility]. Patient is seen today due to persistent need of ICU care Available chart/ vitals / labs / Images reviewed Video assessment done using teleICU camera, rest of exam as per RN He is a 72-year-old male with past medical history of fall COPD, congestive heart failure, ACS and chronic kidney disease presented with shortness of breath to the emergency room and he is found to be in respiratory distress hence he is put on a BiPAP. Apparently he was discharged home on 05-21 from recent admission. Chest x-ray showed bilateral infiltrates. He is admitted to ICU for further care and monitoring. He is very anxious to come off the BiPAP. He is currently on BiPAP 18/10. No fever present. Impression 1. Acute on chronic respiratory failure 2. Underlying pneumonia 3. Acute on chronic congestive heart failure your 4. Acute on chronic kidney disease. Recommendations 1. Continue IV antibiotic therapy 2. IV Lasix per cardiology 3. Continue monitor BUN/creatinine 4. We will get a CTA of the chest to further evaluate the underlying infiltrates as chest x-ray is not much informative in this patient. 5. DVT prophylaxis. Coordination of care with primary care physician and bedside consultants I am remotely monitoring this patient from Tele icu station in [place]. I am unable to do the bedside exam, and history/physical and pertinent information is taken from other notes in the computer and bedside staff. Certain portions of this document may have been dictated utilizing voice recognition technology such as Dragon. Inherent to this technology, typographical and grammatical errors may exist. As much as I am diligent to identify and correct to these mistakes, some errors may remain in the document. Critical care time devoted to this patient today is approximately is-30 minutes. Certain portions of this document may have been dictated utilizing voice recognition technology such as Dragon. Inherent to this technology, typographical and grammatical errors may exist. As much as I am diligent to identify and correct to these mistakes, some errors may remain in the document.- Sepsis Event Evaluation Height, Weight, BMI Height: 5'11.00" Weight: 225lbs. 0.0oz. 102.675447zb; 31.18 BMI Method:Stated Focused Exam Lactate Level 04/30/23 17:29: Lactic Acid Level 2.30*H 04/30/23 19:31: Lactic Acid Level 0.60 Time of Focused Exam: 18:35 Exam Exam Patient acknowledged, consented, and participated in this virtual visit which was conducted using real time audio/video Vital Signs Date Time Temp Pulse Resp B/P (MAP) Pulse Ox O2 Delivery O2 Flow Rate FiO2 05/01/23 06:56 64 23 40.00 05/01/23 06:17 NIV Bilevel 40.00 05/01/23 06:00 76 100 Nasal Cannula 6.00 05/01/23 05:30 Nasal Cannula 6.00 05/01/23 05:00 70 126/56 (79) 100 NIV Bilevel 40.00 05/01/23 04:00 97 NIV Bilevel 40 05/01/23 04:00 72 124/66 (85) 100 NIV Bilevel 40.00 05/01/23 04:00 36.5 05/01/23 03:00 75 120/57 (78) 100 NIV Bilevel 40.00 05/01/23 02:02 69 25 40.00 05/01/23 02:00 68 105/75 (85) 100 NIV Bilevel 40.00 05/01/23 02:00 NIV Bilevel 40.00 05/01/23 01:00 75 97/50 (66) 100 NIV Bilevel 60.00 05/01/23 01:00 71 05/01/23 00:00 36.4 05/01/23 00:00 75 123/67 (85) 100 NIV Bilevel 60.00 04/30/23 23:59 100 NIV Bilevel 60 04/30/23 22:44 75 100 60 04/30/23 22:36 73 22 100 60.00 04/30/23 22:15 100 NIV Bilevel 60.00 04/30/23 21:26 85 04/30/23 21:15 98 Nasal Cannula 6.00 04/30/23 21:15 36.4 98 Nasal Cannula 6.00 04/30/23 20:49 37.6 77 20 116/64 100 NIV Bilevel 04/30/23 18:51 NIV Bilevel 60 04/30/23 17:29 111 40 100 100.00 04/30/23 17:20 37.6 114 27 147/78 (101) 100 NIV Bilevel I & O 05/01/23 07:00 Intake Total 1400 ml Output Total 1776 ml Balance -376 ml Height & Weight Height: 5'11.00" Weight: 225lbs. 0.0oz. 102.679224my; 31.18 BMI Method:Stated General Appearance: WD/WN, Anxious Respiratory: Wheezing (wheezing on left, decreased BS on right with crackles) Cardiovascular: Regular Rate, Rhythm Gastrointestinal: normal bowel sounds, non tender, soft, no organomegaly Extremity: Pedal Edema (+3 bilateral leg edema) Neurologic/Psychiatric: Alert, Oriented x3 Results Lab Laboratory Tests 04/30/23 17:28 05/01/23 04:30 Assessment/Plan Assessment/Plan as above Critical Care: Critically Ill Patient Time spent with patient (mins): 30 EDMUNDO PALACIO MD May 01, 2023 10:00
[2023-05-01 10:06] VITALS: BP_DIAS 148
[2023-05-01] MEDS: TIOTROPIUM INH 4 GM (SPIRIVA Respimat) IH SCH (10:15)
[2023-05-01] MEDS: FLUTICASONE/VILANTEROL 200/25 MCG (7 DOSES) IH SCH (10:15)
[2023-05-01] MEDS ORDERED: DEXTROSE 50% 50 ML (IMS) SYR ONE (10:55)
[2023-05-01 10:58] LABS: ABG PCO2 51 MMHG (35-45); ABG PH 7.35 (7.37-7.43); ABG PO2 70 MMHG (79-93)
[2023-05-01 10:59] LABS: ABG BASE EXCESS 2.6 MMOL/L (-2.5-2.5); ABG OXYGEN SATURATION 94 % (94-100); ABG TCO2 29.8 MMOL/L (21.0-31.0); ALLENS TEST YES-POS; INSPIRED O2 40%; PATIENT TEMP 35.4; VENTILATOR NO
[2023-05-01] MEDS ORDERED: DEXTROSE 50% 50 ML (IMS) SYR IV NR (11:00)
[2023-05-01] MEDS: inSUlin DETERMIR 1 UNIT/0.01 ML (CHARGE PER UNIT) SQ SCH (11:11)
[2023-05-01] MEDS: CYANOCOBALAMIN 1,000 MCG TABLET PO SCH (12:56)
[2023-05-01] MEDS: ASPIRIN enteric coated 81MG TABLET PO SCH (12:56)
[2023-05-01] MEDS: CLOPIDOGREL 75 MG TABLET PO SCH (12:57)
[2023-05-01 13:02] LABS: HEMATOCRIT 23 % (40-54); HEMOGLOBIN 7.2 g/dL (13.3-17.7); MEAN CORPUSCULAR HEMOGLOBIN 28 pg (25-34); MEAN CORPUSCULAR HGB CONC 31 g/dL (32-36); MEAN CORPUSCULAR VOLUME 90 fL (80-99); MEAN PLATELET VOLUME 11.1 fL (9.0-12.2); PLATELET COUNT 209 10^3/uL (130-400); WHITE BLOOD COUNT 11.8 10^3/uL (4.3-11.0)
[2023-05-01 13:10] LABS: POTASSIUM 4.6 MMOL/L (3.6-5.0)
[2023-05-01 13:11] LABS: CALCIUM 8.2 MG/DL (8.5-10.1)
[2023-05-01 13:16] LABS: CREATININE SERUM 2.18 MG/DL (0.60-1.30)
--- NOTE | 2023-05-01 13:28 | Consultation-Cardiology ---
HPI-Cardiology Cardiology Consultation: Date of Consultation 05/01/23 Time Seen by a Provider: 09:15 Date of Admission Attending Physician Jasmin Bland Aprn Admitting Physician Admitting Physician: Deyanira Allan MD Attending Physician: Deyanira Allan MD Consulting Physician NORBERTO DRIVER MD, MA, FACP, FACC, [facility] [place], CCDS Physician requesting consult: Dr Allan HPI: Chief Complaint: Resp failure Mr. Dias is a 72 yr old male admitted to ICU 8 from the ED. He is currently requiring Bi-pap; communication is limited. He is reporting SOB and is anxious. Review of chart has been done. He was dismissed from [facility] on 04-29-23 and re- admitted with increasing SOB yesterday. He was recently treated for acute ex acerbation of COPD and pneumonia. He was dismissed home and progressively became more SOB prompting him to return to the ED. He is oxygen dependant at home on 4L/NC. No c/o CP per the ED notes. [id number]-Aneycd Hx Patient Social History Marrital Status: Smoking Status: Former Smoker Alcohol Use?: No Pt feels they are or have been: No Immunizations Up To Date Tetanus Booster (TDap): Unknown Date of Pneumonia Vaccine: Jul 25, 2017 Date of Influenza Vaccine: Jul 08, 2021 Past Medical History PMH As described under Assessment. Family Medical History Family Medical History: He previously does not report fam h/o early CAD Family History: Patient reports no known family medical history. Allergies and Home Medications Allergies Coded Allergies: liraglutide (Verified Allergy, Unknown, 09/06/21) Patient Home Medication List Home Medication List Reviewed: Yes Albuterol Sulfate (Ventolin Hfa) 18 Gm Hfa.aer.ad, 2 PUFF INH Q4H PRN for SHORTNESS OF BREATH, (Reported) Entered as Reported by: GEORGINA ALVAREZ on 06/11/19 1459 Last Action: Continued Alogliptin Benzoate (Nesina) 6.25 Mg Tablet, 6.25 MG PO DAILY, (Reported) Entered as Reported by: JIM MCDONALD on 02/26/23 1122 Last Action: Converted Amlodipine Besylate (Amlodipine Besylate) 5 Mg Tablet, 5 MG PO DAILY Prescribed by: DEYANIRA ALLAN on 04/29/23 1054 Last Action: Held Aspirin (Aspirin EC) 81 Mg Tablet.dr, 81 MG PO DAILY, (Reported) Entered as Reported by: MARLY NAVARRETE on 10/06/17 1348 Last Action: Continued Atorvastatin Calcium (Lipitor) 40 Mg Tablet, 40 MG PO 1700, (Reported) Entered as Reported by: DESEAN COE on 12/23/18 0731 Last Action: Continued Budesonide/Glycopyr/Formoterol (Breztri Aerosphere Inhaler) 160 Mcg-9 Mcg-4.8 Mcg/Actuation Hfa.aer.ad, 2 PUFF IH BID, (Reported) Entered as Reported by: JIM MCDONALD on 02/26/23 112 Last Action: Converted Carvedilol (Carvedilol) 25 Mg Tablet, 12.5 MG PO BID WITH MEALS, (Reported) Entered as Reported by: RADHA MACKAY on 05/16/21 0819 Last Action: Held Clonidine HCl (Clonidine HCl) 0.1 Mg Tablet, 0.1 MG PO TID Prescribed by: DEYANIRA ALLAN on 04/29/23 105 Last Action: Held Clopidogrel Bisulfate (Clopidogrel) 75 Mg Tablet, 75 MG PO DAILY, (Reported) Entered as Reported by: GEORGINA ALVAREZ on 05/16/15 1119 Last Action: Continued Cyanocobalamin (Vitamin B-12) (Vitamin B-12) 1,000 Mcg Tablet, 1,000 MCG PO DAILY, (Reported) Entered as Reported by: JIM MCDONALD on 02/26/23 112 Last Action: Continued Fluticasone Propionate (Flonase Allergy Relief) 50 Mcg/Actuation Nixon.susp, 1-2 SPRAY NSEACH DAILY, (Reported) Entered as Reported by: JIM MCDONALD on 01/19/21 112 Last Action: Held Folic Acid (Folic Acid) 0.4 Mg Tablet, 0.4 MG PO DAILY, (Reported) Entered as Reported by: JIM MCDONALD on 02/26/231121 Last Action: Converted Insulin Determir (Levemir) 100 Unit/Ml Soln, 40 UNIT SQ BID Prescribed by: DEYANIRA ALLAN on 04/29/23 105 Last Action: Converted Montelukast Sodium (Montelukast Sodium) 10 Mg Tablet, 10 MG PO 1700, (Reported) Entered as Reported by: JIM MCDONALD on 01/19/21 1126 Last Action: Continued Nitroglycerin (Nitroglycerin) 0.4 Mg Tab.subl, 0.4 MG SL UD PRN for CHEST PAIN, (Reported) Entered as Reported by: JIM MCDONALD on 01/19/21 1126 Last Action: Held Pantoprazole Sodium (Pantoprazole Sodium) 40 Mg Tablet.dr, 40 MG PO DAILY, (Reported) Entered as Reported by: GEORGINA ALVAREZ on 05/16/15 1118 Last Action: Continued Tamsulosin HCl (Flomax) 0.4 Mg Cap, 0.4 MG PO 1700, (Reported) Entered as Reported by: DESEAN COE on 12/23/18 0731 Last Action: Continued Discontinued Medications Furosemide (Furosemide) 20 Mg Tablet, 20 MG PO DAILY, (Reported) Entered as Reported by: JIM MCDONALD on 04/18/23 1533 Glipizide (Glipizide) 5 Mg Tablet, 5 MG PO BID WITH MEALS, (Reported) Entered as Reported by: JIM MCDONALD on 04/03/23 1607 Insulin Glargine,Hum.rec.anlog (Lantus Solostar) 100 Unit/Ml (3 Ml) Insuln.pen, 20-25 UNITS SQ 1200 PRN for HYPERGLYCEMIA, (Reported) Entered as Reported by: MARLY NAVARRETE on 10/06/17 1538 Lisinopril (Lisinopril) 40 Mg Tablet, 20 MG PO DAILY, (Reported) Entered as Reported by: MARLY NAVARRETE on 10/06/17 1535 Physical Exam-Cardiology Physical Exam Vital Signs/I&O 05/01/23 05/01/23 05/01/23 05/01/23 02:00 02:00 02:02 03:00 Pulse 68 69 75 Resp 25 B/P (MAP) 105/75 (85) 120/57 (78) Pulse Ox 100 100 O2 Delivery NIV Bilevel NIV Bilevel NIV Bilevel O2 Flow Rate 40.00 40.00 40.00 40.00 05/01/23 05/01/23 05/01/23 05/01/23 04:00 04:00 04:00 05:00 Temp 36.5 Pulse 72 70 B/P (MAP) 124/66 (85) 126/56 (79) Pulse Ox 100 97 100 O2 Delivery NIV Bilevel NIV Bilevel NIV Bilevel O2 Flow Rate 40.00 40.00 FiO2 40 05/01/23 05/01/23 05/01/23 05/01/23 05:30 06:00 06:17 06:56 Pulse 76 64 Resp 23 B/P (MAP) Pulse Ox 100 O2 Delivery Nasal Cannula Nasal Cannula NIV Bilevel O2 Flow Rate 6.00 6.00 40.00 40.00 05/01/23 05/01/23 05/01/23 05/01/23 07:00 07:00 08:00 08:00 Pulse 64 64 63 B/P (MAP) Pulse Ox 100 97 100 O2 Delivery NIV Bilevel NIV Bilevel NIV Bilevel O2 Flow Rate 40.00 40.00 FiO2 40 05/01/23 05/01/23 05/01/23 05/01/23 09:00 10:00 10:06 11:00 Pulse 66 60 60 60 Resp 25 B/P (MAP) 172/77 (108) 176/101 (126) 169/85 (113) Pulse Ox 99 98 98 O2 Delivery NIV Bilevel NIV Bilevel NIV Bilevel O2 Flow Rate 40.00 40.00 30.00 40.00 05/01/23 05/01/23 05/01/23 11:51 12:00 12:00 Temp 35.1 Pulse 53 B/P (MAP) 136/72 (93) Pulse Ox 97 96 O2 Delivery NIV Bilevel NIV Bilevel NIV Bilevel O2 Flow Rate 30.00 30.00 FiO2 40 05/01/23 00:00 Intake Total 350 ml Balance 350 ml Capillary Refill : Constitutional: AAO x 3, well-developed, well-nourished, other (anxious) HEENT: hearing is well preserved Neck: No carotid bruit; carotid pulses are 2 + bilaterally Respiratory: other (coarse breathsounds throughout, dimininished lower lobes bilat) Cardiovascular: regular rate-rhythm; No JVD; S1 and S2 Gastrointestinal: No tender; soft; No guarding; audible bowel sounds Extremities: other (bilat LE pitting edema) Neurologic/Psychiatric: other (moves all extremities) Skin: No rash on exposed areas, No ulcerations on exposed areas Data Review Labs Laboratory Tests 04/30/23 17:28: White Blood Count 20.0H, Red Blood Count 3.14L, Hemoglobin 8.7L, Hematocrit 28L, Mean Corpuscular Volume 90, Mean Corpuscular Hemoglobin 28, Mean Corpuscular Hemoglobin Concent 31L, Red Cell Distribution Width 18.6H, Platelet Count 335, Mean Platelet Volume 11.4, Immature Granulocyte % (Auto) 1, Neutrophils (%) (Auto) 71, Lymphocytes (%) (Auto) 14, Monocytes (%) (Auto) 12, Eosinophils (%) (Auto) 2, Basophils (%) (Auto) 0, Neutrophils # (Auto) 14.3H, Lymphocytes # (Auto) 2.8, Monocytes # (Auto) 2.3H, Eosinophils # (Auto) 0.4H, Basophils # (Auto) 0.0, Immature Granulocyte # (Auto) 0.2H, Neutrophils % (Manual) 75, L ymphocytes % (Manual) 15, Monocytes % (Manual) 5, Eosinophils % (Manual) 5, Platelet Estimate ADEQUATE, Poikilocytosis SLIGHT, Anisocytosis SLIGHT, Prothrombin Time 13.7, INR Comment 1.0, Activated Partial Thromboplast Time 22L, D-Dimer 1.58H, Sodium Level 143, Potassium Level 5.5H, Chloride Level 107, Carbon Dioxide Level 25, Anion Gap 11, Blood Urea Nitrogen 99H, Creatinine 2.70H , Estimat Glomerular Filtration Rate 25, BUN/Creatinine Ratio 37, Glucose Level 310H, Calcium Level 8.8, Corrected Calcium 9.4, Total Bilirubin 0.5, Aspartate Amino Transf (AST/SGOT) 26, Alanine Aminotransferase (ALT/SGPT) 36, Alkaline Phosphatase 52, Troponin I 0.100H, C-Reactive Protein High Sensitivity 0.88H, B- Type Natriuretic Peptide 431.9H, Total Protein 6.3L, Albumin 3.3 04/30/23 17:29: Lactic Acid Level 2.30*H 04/30/23 17:38: SARS-CoV-2 RNA (RT-PCR) Not Detected 04/30/23 17:41: Blood Gas Puncture Site LEFT RA, Blood Gas Patient Temperature 37.6, Arterial Blood pH 7.26*L, Arterial Blood Partial Pressure CO2 63H, Arterial Blood Partial Pressure O2 247H, Arterial Blood HCO3 27, Arterial Blood Total CO2 28.7, Arterial Blood Oxygen Saturation 98, Arterial Blood Base Excess 0.7, Howie Test YES-POS, Blood Gas Ventilator Setting YES, Blood Gas Inspired Oxygen 100 04/30/23 19:31: Lactic Acid Level 0.60 04/30/23 23:54: Glucometer 171H 05/01/23 04:30: White Blood Count 12.5H, Red Blood Count 2.55L, Hemoglobin 7.1L, Hematocrit 23L, Mean Corpuscular Volume 89, Mean Corpuscular Hemoglobin 28, Mean Corpuscular Hemoglobin Concent 31L, Red Cell Distribution Width 18.5H, Platelet Count 268, Mean Platelet Volume 11.6, Immature Granulocyte % (Auto) 1, Neutrophils (%) (Auto) 82H, Lymphocytes (%) (Auto) 7L, Monocytes (%) (Auto) 9, Eosinophils (%) (Auto) 2, Basophils (%) (Auto) 0, Neutrophils # (Auto) 10.2H, Lymphocytes # (Auto) 0.9L, Monocytes # (Auto) 1.1H, Eosinophils # (Auto) 0.3, Basophils # (Auto) 0.0, Immature Granulocyte # (Auto) 0.1, Sodium Level 142, Potassium Level 5.1H, Chloride Level 108H, Carbon Dioxide Level 26, Anion Gap 8, Blood Urea Nitrogen 96H, Creatinine 2.29H, Estimat Glomerular Filtration Rate 30, BUN/Creatinine Ratio 42, Glucose Level 85, Calcium Level 8.1L, Corrected Calcium 9.1, Magnesium Level 2.0, Total Bilirubin 0.4, Aspartate Amino Transf (AST/SGOT) 19, Alanine Aminotransferase (ALT/SGPT) 27, Alkaline Phosphatase 42, Troponin I 0.385*H, Total Protein 5.5L, Albumin 2.8L 05/01/23 10:51: Blood Gas Puncture Site LT RAD, Blood Gas Patient Temperature 35.4, Arterial Blood pH 7.35L, Arterial Blood Partial Pressure CO2 51H, Arterial Blood Partial Pressure O2 70L, Arterial Blood HCO3 28H, Arterial Blood Total CO2 29.8, Arterial Blood Oxygen Saturation 94, Arterial Blood Base Excess 2.6H, Howie Test YES-POS, Blood Gas Ventilator Setting NO, Blood Gas Inspired Oxygen 40% 05/01/23 11:26: Glucometer 104 05/01/23 12:59: White Blood Count 11.8H, Red Blood Count 2.60L, Hemoglobin 7.2L, Hematocrit 23L, Mean Corpuscular Volume 90, Mean Corpuscular Hemoglobin 28, Mean Corpuscular Hemoglobin Concent 31L, Red Cell Distribution Width 18.4H, Platelet Count 209, Mean Platelet Volume 11.1, Sodium Level 143, Potassium Level 4.6, Chloride Level 108H, Carbon Dioxide Level 28, Anion Gap 7, Blood Urea Nitrogen 94H, Creatinine 2.18H, Estimat Glomerular Filtration Rate 32, BUN/Creatinine Ratio 43, Glucose Level 38*L, Calcium Level 8.2L A/P-Cardiology Assessment/Admission Diagnosis Acute on chronic respiratory failure likely multi-factorial d/t acute on chronic exacerbation of COPD due to pneumonia - requiring Bi-pap tx - Echocardiogram of 02-26-[address] Pizarro showed LVEF 55-60% - CT of the chest 04-18-23: 1. Airspace and groundglass opacities in the lungs bilaterally,concerning for infection. Aspiration and an inflammatory process or in the differential as well. Underlying neoplasm is not excluded. Chronic scarring and bullous disease in the right lung apex. Small left and trace right pleural effusions. Chronic diastolic CHF Hypertension DM - management per medical services. CAD - Cardiac cath of by Dr. Pizarro showed: Moderate disease in the mid right coronary artery with occlusion of the distal right PDA, small artery not amendable to intervention. Patent multiple stents in the proximal and mid LAD and proximal mid circumflex artery with mild to moderate in-stent restenosis and mild to moderate coronary artery disease in the left system nonobstructive disease. Normal left ventricular end-diastolic pressure - medical management advised at that time - continue antiplatelet therapy. Positive troponin (seen at time of last admission and again at time of this admission) - likely type II IL due to acute respiratory failure with hypoxia Reported h/o PAD in previous notes - details unknown Stage IV chronic kidney disease Ex tobaccoism, patient recently quit smoking Left bundle branch block - chronic Anemia - management per medical services Moderate to severe back pain. Discussion and Recomendations Complex management Acute on chronic resp failure likely d/t pneumonia, acute on chronic exacerbation of COPD, chronic diastolic CHF - management of COPD per medical services - management of pneumonia per medical services - we recommend consideration of intubation and mech vent if dyspnea persists Chronic diastolic CHF - clinically appears compensated at this time. iv fluids as needed Bilat LE swelliing - stop Norvasc Chronically elevated troponin - likely Type 2 IL secondary to hypoxia Known h/o CAD - continue ASA and Plavix CKD 4 - monitor renal function closely - avoid nephrotoxic agents - consider transfer to tertiary care facility with nephrology services Anemia - management per medical services - we recommend consideration of blood transfusion Further recs will be based on his hospital course Discussed with NORBERTO Vaz MD FACP FACC CCDS May 01, 2023 13:27
[2023-05-01 15:06] VITALS: BP_DIAS 142
--- NOTE | 2023-05-01 16:09 | Diagnostic Imaging Report ---
Clinical indication: Patient with change in mental status. Patient on BiPAP. Exam: Axial CT scan of the brain without IV contrast with coronal and sagittal reformatted images. Auto Exposure Controls were utilized during the CT exam to meet ALARA standards for radiation dose reduction. Comparison: Head CT without contrast dated 02/21/2016. Findings: There is no evidence of acute cerebral infarct, intracranial hemorrhage or gross mass effect. The brain parenchymal volume appears appropriate for patient's age. There is slight progression of patchy and confluent low-attenuation white matter changes involving both cerebral hemispheres and periventricular regions, likely representing chronic small vessel ischemic disease and leukoaraiosis. There is normal quintana-white matter distinction. There is no significant midline shift or herniation. There is no evidence of hydrocephalus. The basal cisterns are unremarkable. The skull, extracranial soft tissue, and orbits are unremarkable. The paranasal sinuses are unremarkable. There is a small amount of fluid involving the right mastoid air cells. Impression: 1: There is no evidence of acute intracranial process. 2: There is progression of chronic small vessel ischemic disease and leukoaraiosis. 3: There is a small amount of fluid involving the right mastoid air cells. Dictated by: Dictated on workstation # [id number]
--- NOTE | 2023-05-01 16:10 | Diagnostic Imaging Report ---
EXAMINATION: CT chest without contrast. TECHNIQUE: Multiple contiguous axial images were obtained through the chest without the use of intravenous contrast. All CT scans use one or more of the following dose optimizing techniques: Automated exposure control, MA and/or KvP adjustment based on patient size and exam type or iterative reconstruction. HISTORY: Follow-up pneumonia. History of heart failure. Shortness of breath. COMPARISON: 04/18/2023. FINDINGS: The heart size is prominent. No pericardial effusion is present. Prominent lymph nodes are seen in the mediastinum and bilateral hilar regions. Stable small left and trace right pleural effusions are seen. There are patchy and consolidative opacities throughout both lungs, greatest in the right lower lobe. Overall, there is improved aeration in the lungs compared to the prior exam. Prominent scarring and bulla formation is seen in the right apex. No evidence of pneumothorax. The osseous structures demonstrate no acute abnormalities. Limited views of the upper abdominal structures demonstrate no acute abnormalities. IMPRESSION: 1. Improved aeration throughout the lungs with continued residual patchy and consolidative opacities, greatest in the right lung base. Additional stable small left and trace right pleural effusions. Findings may represent improving infection and/or edema, and continued follow-up is recommended. 2. Cardiomegaly. Dictated by: Dictated on workstation # [id number]
[2023-05-01] MEDS ORDERED: DEXTROSE 50% 50 ML (IMS) SYR IV ONE (17:00)
[2023-05-01] MEDS: MONTELUKAST 10 MG TABLET PO SCH (17:12)
[2023-05-01] MEDS: TAMSULOSIN 0.4 MG (FLOMAX) CAP PO SCH (17:12)
[2023-05-01] MEDS: D5 NS 1,000 ML IV SOLN 1,000 ML IV SCH (17:14)
[2023-05-01 19:12] VITALS: BP_DIAS 170
[2023-05-01 21:51] VITALS: BP_DIAS 178
[2023-05-01] MEDS: VANCOMYCIN 1 GM/NS 250 ML IVPB IV SCH ×2 (23:50)
[2023-05-02] MEDS: PIPERACILLIN SODIUM/TAZOBACTAM 4.5 GM in NS (IVPB) 100 ML 100 ML IV SCH ×4 (00:13→23:33)
[2023-05-02 02:33] VITALS: BP_DIAS 168
[2023-05-02] MEDS: RT-Ipratropium/Albuterol NEB 3 ML VIAL INH SCH ×6 (02:33→21:29)
[2023-05-02] MEDS: D5 NS 1,000 ML IV SOLN 1,000 ML IV SCH ×2 (03:31→13:38)
[2023-05-02 05:00] LABS: BASOPHILS % (AUTO) 0 % (0-10); EOSINOPHILS % (AUTO) 0 % (0-10); HEMATOCRIT 25 % (40-54); HEMOGLOBIN 7.8 g/dL (13.3-17.7); LYMPHOCYTES # (AUTO) 0.3 10^3/uL (1.0-4.0); LYMPHOCYTES % (AUTO) 3 % (12-44); MEAN CORPUSCULAR HEMOGLOBIN 28 pg (25-34); MEAN CORPUSCULAR HGB CONC 32 g/dL (32-36); MEAN CORPUSCULAR VOLUME 89 fL (80-99); MEAN PLATELET VOLUME 11.7 fL (9.0-12.2); MONOCYTES # (AUTO) 0.2 10^3/uL (0.0-1.0); MONOCYTES % (AUTO) 2 % (0-12); NEUTROPHILS # (AUTO) 9.7 10^3/uL (1.8-7.8); NEUTROPHILS % (AUTO) 95 % (42-75); PLATELET COUNT 235 10^3/uL (130-400); WHITE BLOOD COUNT 10.2 10^3/uL (4.3-11.0)
[2023-05-02 05:13] LABS: ALBUMIN 2.9 GM/DL (3.2-4.5); BILIRUBIN,TOTAL 0.4 MG/DL (0.1-1.0); CALCIUM 8.4 MG/DL (8.5-10.1); CREATININE SERUM 1.98 MG/DL (0.60-1.30); POTASSIUM 4.7 MMOL/L (3.6-5.0); TOTAL PROTEIN 5.6 GM/DL (6.4-8.2)
[2023-05-02] MEDS: POTASSIUM CL 10MEQ/50ML IVPB 50 ML IV SCH (05:51)
[2023-05-02] MEDS: MAGNESIUM 1 GM/100 ML IVPB 100 ML IV SCH (05:52)
[2023-05-02] MEDS: POTASSIUM CHLORIDE 20 MEQ TABLET PO SCH (05:52)
[2023-05-02] MEDS: inSUlin ASPART 1 UNIT/0.01 ML (PER UNIT) SC SCH ×4 (06:00→20:31)
[2023-05-02] MEDS: PANTOPRAZOLE 40 MG (PROTONIX) TAB PO SCH (06:00)
[2023-05-02] MEDS: TIOTROPIUM INH 4 GM (SPIRIVA Respimat) IH SCH (07:27)
[2023-05-02] MEDS: FLUTICASONE/VILANTEROL 200/25 MCG (7 DOSES) IH SCH (07:27)
[2023-05-02] MEDS: NS IV 1000 ML 1,000 ML IV SCH ×2 (08:47→16:52)
[2023-05-02] MEDS: FOLIC ACID 1 MG TAB PO SCH (09:03)
[2023-05-02] MEDS: CLOPIDOGREL 75 MG TABLET PO SCH (09:03)
[2023-05-02] MEDS: ASPIRIN enteric coated 81MG TABLET PO SCH (09:03)
[2023-05-02] MEDS: CYANOCOBALAMIN 1,000 MCG TABLET PO SCH (09:03)
--- NOTE | 2023-05-02 11:47 | Progress Note - Cardiology ---
Cardiology SOAP Progress Note Subjective: Off Bi-pap today More alert No c/o CP C/O SOB which is better Family x1 at the bedside Objective: I&O/Vital Signs 05/05/23 05/05/23 05/06/23 05/06/23 22:40 23:29 00:29 01:00 Pulse 83 82 82 55 B/P (MAP) 160/63 (104) 143/57 (85) 150/64 (92) Pulse Ox 100 99 97 O2 Delivery Vapotherm Vapotherm Vapotherm O2 Flow Rate 25.00 25.00 25.00 30.00 30.00 30.00 05/06/23 05/06/23 05/06/23 05/06/23 01:00 01:31 04:29 06:44 Pulse 77 79 B/P (MAP) 174/80 (111) Pulse Ox 99 100 98 99 O2 Delivery Vapotherm Vapotherm Vapotherm Vapotherm O2 Flow Rate 30.00 25.00 30.00 30.00 45.00 45.00 FiO2 45 45 05/06/23 05/06/23 05/06/23 05/06/23 06:50 06:50 07:00 07:54 Temp 36.7 Pulse 81 89 Resp 21 B/P (MAP) 186/84 (118) Pulse Ox 99 95 O2 Delivery Vapotherm Vapotherm Vapotherm O2 Flow Rate 30.00 FiO2 45 05/06/23 05/06/23 08:00 08:28 Pulse 81 82 B/P (MAP) 146/62 (90) Pulse Ox 93 O2 Delivery Vapotherm O2 Flow Rate 30.00 45.00 05/06/23 00:00 Intake Total 1375 ml Output Total 1675 ml Balance -300 ml Weight (Pounds): 225 Weight (Ounces): 0.0 Weight (Calculated Kilograms): 102.428274 Constitutional: AAO x 3, well-developed, well-nourished, other (anxious) Respiratory: other (coarse breathsounds throughout, dimininished lower lobes bilat) Cardiovascular: regular rate-rhythm; No JVD; S1 and S2 Gastrointestional: No tender; soft; No guarding; audible bowel sounds Extremities: other (bilat LE pitting edema) Neurologic/Psychiatric: other (moves all extremities) Skin: No rash on exposed areas, No ulcerations on exposed areas Results/Procedures: Labs Laboratory Tests 05/05/23 10:34: Glucometer 256H 05/05/23 15:54: Glucometer 225H 05/05/23 21:39: Glucometer 190H 05/06/23 04:27: White Blood Count 12.9H, Red Blood Count 2.74L, Hemoglobin 7.5L, Hematocrit 24L, Mean Corpuscular Volume 88, Mean Corpuscular Hemoglobin 27, Mean Corpuscular Hemoglobin Concent 31L, Red Cell Distribution Width 18.5H, Platelet Count 203, Mean Platelet Volume 11.3, Immature Granulocyte % (Auto) 1, Neutrophils (%) (Aut o) 89H, Lymphocytes (%) (Auto) 5L, Monocytes (%) (Auto) 5, Eosinophils (%) (Auto) 1, Basophils (%) (Auto) 0, Neutrophils # (Auto) 11.4H, Lymphocytes # (Auto) 0.6L, Monocytes # (Auto) 0.7, Eosinophils # (Auto) 0.1, Basophils # (Auto) 0.0, Immature Granulocyte # (Auto) 0.1, Neutrophils % (Manual) 90, Lymphocytes % (Manual) 5, Monocytes % (Manual) 4, Eosinophils % (Manual) 1, Band Neutrophils , Hypochromasia SLIGHT, Microcytosis SLIGHT, Elliptocytes SLIGHT, Sodium Level 143, Potassium Level 3.9, Chloride Level 106, Carbon Dioxide Level 25, Anion Gap 12, Blood Urea Nitrogen 66H, Creatinine 2.59H, Estimat Glomerular Filtration Rate 26, BUN/Creatinine Ratio 25, Glucose Level 179H, Calcium Level 8.4L, Corrected Calcium 9.1, Magnesium Level 1.6, Total Bilirubin 0.4, Aspartate Amino Transf (AST/SGOT) 14, Alanine Aminotransferase (ALT/SGPT) 23, Alkaline Phosphatase 45, Total Protein 5.9L, Albumin 3.1L Microbiology 04/30/23 MRSA Screen - Final, Complete MRSA not isolated 04/30/23 Blood Culture - Preliminary, Resulted No growth A/P: Assessment: Acute on chronic respiratory failure likely multi-factorial d/t acute on chronic exacerbation of COPD due to pneumonia - requiring Bi-pap tx initially - now on Vapo-therm - Echocardiogram of 02-26-[address] Pizarro showed LVEF 55-60% - CT of the chest 04-18-23: 1. Airspace and groundglass opacities in the lungs bilaterally,concerning for infection. Aspiration and an inflammatory process or in the differential as well. Underlying neoplasm is not excluded. Chronic scarring and bullous disease in the right lung apex. Small left and trace right pleural effusions. Chronic diastolic CHF Hypertension DM - management per medical services. CAD - Cardiac cath of by Dr. Pizarro showed: Moderate disease in the mid right coronary artery with occlusion of the distal right PDA, small artery not amendable to intervention. Patent multiple stents in the proximal and mid LAD and proximal mid circumflex artery with mild to moderate in-stent restenosis and mild to moderate coronary artery disease in the left system nonobstructive disease. Normal left ventricular end-diastolic pressure - medical management advised at that time - continue antiplatelet therapy. Positive troponin (seen at time of last admission and again at time of this admission) - likely type II CA due to acute respiratory failure with hypoxia Reported h/o PAD in previous notes - details unknown Stage IV chronic kidney disease Ex tobaccoism, patient recently quit smoking Left bundle branch block - chronic Anemia - management per medical services Moderate to severe back pain. Plan: Complex management Acute on chronic resp failure likely d/t pneumonia, acute on chronic exacerbation of COPD, chronic diastolic CHF - management of COPD per medical services - management of pneumonia per medical services Chronic diastolic CHF - clinically appears compensated at this time. iv fluids as needed Bilat LE swelliing - stop Norvasc BP not well controlled - increase BB CKD 4 - monitor renal function closely - Cr improving Anemia - management per medical services - we recommend consideration of blood transfusion ENRIQUE HAYES [facility] May 02, 2023 11:47
[2023-05-02] MEDS ORDERED: FUROSEMIDE INJECTION 40 MG/4 ML VIAL IVP ONE (12:00)
--- NOTE | 2023-05-02 13:12 | Progress Note ---
GREY ORTEGA 05/02/23 1312: Subjective Date Seen by a Provider: May 02, 2023 Time Seen by a Provider: 09:00 Subjective/Events-last exam Patient seen awake and alert laying in bed. Patient reports that he occasionally feels short of breath on the vapotherm compared to the bipap, but states that this is mild. Patient has managed to maintain O2 sats in the 90s since being placed on the vapotherm. Patient reports that he is a little anxious today concerning his condition, but reports that he has no other complaints. Review of Systems General: No Chills; Fatigue; No Malaise HEENT: No Head Aches, No Eye Pain; Sinus Congestion (requested flonase, ordered) Pulmonary: Dyspnea (slight on vapotherm) Cardiovascular: Edema (3+ pitting edema b/l LEs); No: Chest Pain, Palpitations Gastrointestinal: No: Nausea, Vomiting Genitourinary: No Dysuria, No Hematuria Musculoskeletal: No: neck pain, back pain Neurological: Weakness; No: Numbness, Incoordination Focused Exam Lactate Level 04/30/23 17:29: Lactic Acid Level 2.30*H 04/30/23 19:31: Lactic Acid Level 0.60 Time of Focused Exam: 18:35 Objective Exam Last Set of Vital Signs Vital Signs Date Time Temp Pulse Resp B/P (MAP) Pulse Ox O2 Delivery O2 Flow Rate FiO2 05/02/23 12:34 98 05/02/23 12:18 36.8 05/02/23 12:00 161/83 (109) 93 Vapotherm 40.00 30.00 05/02/23 10:03 50 05/02/23 02:33 26 Capillary Refill : I&O Intake and Output 05/02/23 00:00 Intake Total 1550 ml Output Total 2901 ml Balance -1351 ml Intake Oral 1200 ml IV Total 350 ml Output Urine Total 2900 ml Stool Total 1 ml General: Alert, Oriented X3, Cooperative, No Acute Distress HEENT: Atraumatic Neck: Supple Lungs: Clear to Auscultation, Normal Air Movement Heart: Regular Rate, No Murmurs Abdomen: Soft, No Tenderness Extremities: No Cyanosis, Normal Pulses, Other (3+ pitting pedal edema b/l) Skin: No Rashes, No Breakdown, No Significant Lesion Neuro: Normal Speech, Normal Tone Psych/Mental Status: Mental Status NL Results Lab Laboratory Tests 05/01/23 16:25: Glucometer 21*L 05/01/23 17:28: Glucometer 97 05/01/23 18:22: Glucometer 87 05/01/23 20:40: Glucometer 108 05/02/23 04:21: White Blood Count 10.2, Red Blood Count 2.77L, Hemoglobin 7.8L, Hematocrit 25L, Mean Corpuscular Volume 89, Mean Corpuscular Hemoglobin 28, Mean Corpuscular Hemoglobin Concent 32, Red Cell Distribution Width 18.5H, Platelet Count 235, Mean Platelet Volume 11.7, Immature Granulocyte % (Auto) 1, Neutrophils (%) (Auto) 95H, Lymphocytes (%) (Auto) 3L, Monocytes (%) (Auto) 2, Eosinophils (%) (Auto) 0, Basophils (%) (Auto) 0, Neutrophils # (Auto) 9.7H, Lymphocytes # (Auto) 0.3L, Monocytes # (Auto) 0.2, Eosinophils # (Auto) 0.0, Basophils # (Auto) 0.0, Immature Granulocyte # (Auto) 0.1, Sodium Level 144, Potassium Level 4.7, Chloride Level 110H, Carbon Dioxide Level 21, Anion Gap 13, Blood Urea Nitrogen 84H, Creatinine 1.98H, Estimat Glomerular Filtration Rate 36, BUN/Creatinine Ratio 42, Glucose Level 185H, Calcium Level 8.4L, Corrected Calcium 9.3, Total Bilirubin 0.4, Aspartate Amino Transf (AST/SGOT) 19, Alanine Aminotransferase (ALT/SGPT) 26, Alkaline Phosphatase 47, Total Protein 5.6L, Albumin 2.9L 05/02/23 05:17: Glucometer 192H 05/02/23 10:39: Glucometer 246H Microbiology 04/30/23 MRSA Screen - Final, Complete MRSA not isolated 04/30/23 Blood Culture - Preliminary, Resulted No growth Assessment/Plan Assessment/Plan Assess & Plan/Chief Complaint Acute on chronic respiratory failure with hypoxia: maintaining good O2 sats on vapotherm 40/50. Continue vancomycin and zosyn. AECOPD: Continue tiotroprium, breo-ellipta and albuterol Normocytic anemia: Hg increased from 7.2 yesterday to 7.8 today, continue to monitor CKD IV: BUN improved form 94 to 84 today. Cr improved from 2.18 to 1.98 today. Continue to monitor Type 2 MS: cardiology consulted, appreciate recs Hyperkalemia: resolved HTN: continue metoprolol Insulin-dependent DM: SSI, was holding due to low blood sugars, patient is eating now and can resume insulin this evening CAD: continue ASA and statin ALEIDA BACON MD 05/02/23 1414: Supervisory-Addendum Brief Verification & Attestation Participated in pt care: history, physical Personally performed: exam, history Care discussed with: Medical Student Procedures: n/a Verification and Attestation of Medical Student E/M Service A medical student performed and documented this service in my presence. I reviewed and verified all information documented by the medical student and made modifications to such information, when appropriate. I personally performed the physical exam and medical decision making. Aleida Bacon, May 02, 2023,14:11 A/P Acute on chronic Respiratory Failure with hypoxia AECOPD HCAP Normocytic Anemia CKD IV Type 2 MS Hyperkalemia HTN IDDM CAD Debility Admit to ICU. Patient is requiring bipap. This AM had hypoglycemia. Will stop long acting insulin and just have SSI. Check blood sugars q 6hrs while NPO on bipap. CT chest pending. Will transfuse 1 unit pRBCs. Discussed plan with Yuridia and she said that she would be arriving soon. Revisited code status and she states that he wants to be intubated and everything done because "he is not ready to give up the fight". 05/02: Much improved this AM, on Vapotherm, will titrate as tolerated. Discussed with patient that he has 3 end stage medical problems and discussed hospice care. He is not ready for hospice. Blood sugars improved after hypoglycemia yesterday. Will restart when PO intake improves. Would recommend facility placement GREY ORTEGA May 02, 2023 13:12 ALEIDA BACON MD May 02, 2023 14:14
--- NOTE | 2023-05-02 13:24 | Tele-ICU Progress Note ---
Subjective Date Seen by a Provider: May 02, 2023 Time Seen by a Provider: 13:24 Subjective/Events-last exam (Tele-ICU Physician , Progress Note ) Service provided via interactive audio and video telecommunications E-CARE system to a patient admitted to ICU bed in [facility]. Patient is seen today due to persistent need of ICU care Available chart/ vitals / labs / Images reviewed Video assessment done using teleICU camera, rest of exam as per RN Discussed with RN Events overnight : Afebrile hemodynamically stable A/P Impression 1. Acute on chronic respiratory failure-off bipap , on VT high flow 2. Underlying pneumonia- CT chest 0 infiltrates , improving 3. Acute on chronic congestive heart failure 4. Acute on chronic kidney disease. 5. small left and trace right pleural effusions Recommendations 1. Continue IV antibiotic therapy 2. IV Lasix per cardiology 3. Continue monitor BUN/creatinine 4. We will get a CTA of the chest to further evaluate the underlying infi ltrates as chest x-ray is not much informative in this patient. 5. DVT prophylaxis. VTE Prophylaxis: hep sq Stress Ulcer Prophylaxis: na Plans in collaboration with bedside consultants and IM MDs. Discussed with RN to reach out if any questions or concerns Case and care daily discussed on multidisciplinary rounds ( RN, PharmD, Audit Analyst , Respiratory Therapy, computer networker ) A total of 15 minutes of critical care time was devoted to this patient today, required to treat and/or prevent further deterioration of critical care condition ( as above ) . I am remotely monitoring this patient from another state. I am unable to do the bedside exam, and history/physical and pertinent information is taken from other notes in the computer and bedside staff. Sepsis Event Evaluation Height, Weight, BMI Height: 5'11.00" Weight: 225lbs. 0.0oz. 102.635645fh; 31.22 BMI Method:Stated Focused Exam Lactate Level 04/30/23 17:29: Lactic Acid Level 2.30*H 04/30/23 19:31: Lactic Acid Level 0.60 Time of Focused Exam: 18:35 Exam Exam Patient acknowledged, consented, and participated in this virtual visit which was conducted using real time audio/video Vital Signs Date Time Temp Pulse Resp B/P (MAP) Pulse Ox O2 Delivery O2 Flow Rate FiO2 05/02/23 13:00 101 162/77 (105) 92 Vapotherm 40.00 30.00 05/02/23 12:34 98 05/02/23 12:18 36.8 05/02/23 12:00 93 161/83 (109) 93 Vapotherm 40.00 30.00 05/02/23 11:00 98 153/92 (112) 95 Vapotherm 40.00 30.00 05/02/23 10:03 100 Vapotherm 40.00 50 05/02/23 10:00 96 140/67 (91) 100 Vapotherm 40.00 30.00 05/02/23 09:00 100 159/68 (98) 99 Vapotherm 40.00 50.00 05/02/23 08:00 104 89 Vapotherm 40.00 50.00 05/02/23 08:00 97 NIV Bilevel 30 05/02/23 07:53 Vapotherm 40.00 50.00 05/02/23 07:51 36.6 05/02/23 07:45 96 Vapotherm 40.00 50 05/02/23 07:44 96 Vapotherm 40.00 50 05/02/23 07:38 93 Vapotherm 40.00 30 05/02/23 07:00 84 155/95 (115) 95 NIV Bilevel 40.00 05/02/23 07:00 91 05/02/23 06:00 92 175/84 (114) 96 NIV Bilevel 40.00 05/02/23 05:00 95 171/82 (111) 100 NIV Bilevel 40.00 05/02/23 04:00 93 171/95 (120) 94 NIV Bilevel 40.00 05/02/23 04:00 97 NIV Bilevel 30 05/02/23 03:00 92 172/86 (114) 100 NIV Bilevel 40.00 05/02/23 02:33 92 26 30.00 05/02/23 02:00 88 174/78 (110) 100 NIV Bilevel 40.00 05/02/23 01:00 94 05/02/23 01:00 82 180/80 (113) 100 NIV Bilevel 40.00 05/02/23 00:00 89 174/87 (116) 100 NIV Bilevel 40.00 05/01/23 23:30 97 NIV Bilevel 30 05/01/23 23:00 82 180/80 (113) 100 NIV Bilevel 40.00 05/01/23 22:00 78 182/79 (113) 97 NIV Bilevel 40.00 05/01/23 21:51 82 22 30.00 05/01/23 21:00 68 178/94 (122) 97 NIV Bilevel 40.00 05/01/23 20:00 97 NIV Bilevel 40 05/01/23 20:00 63 177/81 (113) 98 NIV Bilevel 40.00 05/01/23 19:12 57 24 30.00 05/01/23 19:00 60 05/01/23 19:00 56 136/94 (108) 97 NIV Bilevel 40.00 05/01/23 18:09 97 NIV Bilevel 40 05/01/23 18:00 52 148/74 (98) 100 NIV Bilevel 40.00 05/01/23 17:00 51 149/72 (97) 100 NIV Bilevel 40.00 05/01/23 16:00 35.0 NIV Bilevel 40.00 05/01/23 16:00 97 NIV Bilevel 40 05/01/23 16:00 53 129/64 (85) 100 NIV Bilevel 40.00 05/01/23 15:06 53 28 40.00 05/01/23 15:00 53 161/80 (107) 100 NIV Bilevel 30.00 05/01/23 14:00 52 161/77 (105) 99 NIV Bilevel 30.00 I & O 05/02/23 06:59 Intake Total 2850 ml Output Total 1975 ml Balance 875 ml Height & Weight Height: 5'11.00" Weight: 225lbs. 0.0oz. 102.020421jj; 31.22 BMI Method:Stated General Appearance: WD/WN, Anxious Respiratory: Wheezing (wheezing on left, decreased BS on right with crackles) Cardiovascular: Regular Rate, Rhythm Gastrointestinal: normal bowel sounds, non tender, soft, no organomegaly Extremity: Pedal Edema (+3 bilateral leg edema) Neurologic/Psychiatric: Alert, Oriented x3 Results Lab Laboratory Tests 04/30/23 17:28 05/01/23 04:30 05/01/23 12:59 05/02/23 04:21 Assessment/Plan Assessment/Plan 1 JESSY RAMIREZ MD May 02, 2023 13:24
[2023-05-02] MEDS: FLUTICASONE NASAL SPRAY (120 SPRAYS) NS SCH (13:38)
--- NOTE | 2023-05-02 16:13 | Progress Note - Cardiology ---
Cardiology SOAP Progress Note Subjective: Gen weakness No cp or palp or syncope No n/v/d No focal weakness Shortness of breath present Also notes bilat leg swelling Objective: I&O/Vital Signs 05/02/23 05/02/23 05/02/23 05/02/23 05:00 06:00 07:00 07:00 Pulse 95 92 91 84 B/P (MAP) 171/82 (111) 175/84 (114) 155/95 (115) Pulse Ox 100 96 95 O2 Delivery NIV Bilevel NIV Bilevel NIV Bilevel O2 Flow Rate 40.00 40.00 40.00 05/02/23 05/02/23 05/02/23 05/02/23 07:38 07:44 07:45 07:51 Temp 36.6 Pulse Ox 93 96 96 O2 Delivery Vapotherm Vapotherm Vapotherm O2 Flow Rate 40.00 40.00 40.00 FiO2 30 50 50 05/02/23 05/02/23 05/02/23 05/02/23 07:53 08:00 08:00 09:00 Pulse 104 100 B/P (MAP) 159/68 (98) Pulse Ox 97 89 99 O2 Delivery Vapotherm NIV Bilevel Vapotherm Vapotherm O2 Flow Rate 40.00 40.00 40.00 50.00 50.00 50.00 FiO2 30 05/02/23 05/02/23 05/02/23 05/02/23 10:00 10:03 11:00 12:00 Pulse 96 98 B/P (MAP) 140/67 (91) 153/92 (112) Pulse Ox 100 100 95 97 O2 Delivery Vapotherm Vapotherm Vapotherm NIV Bilevel O2 Flow Rate 40.00 40.00 40.00 30.00 30.00 FiO2 50 30 05/02/23 05/02/23 05/02/23 05/02/23 12:00 12:18 12:34 13:00 Temp 36.8 Pulse 93 98 101 B/P (MAP) 161/83 (109) 162/77 (105) Pulse Ox 93 92 O2 Delivery Vapotherm Vapotherm O2 Flow Rate 40.00 40.00 30.00 30.00 05/02/23 05/02/23 05/02/23 05/02/23 14:00 14:51 15:00 16:11 Temp 36.7 Pulse 96 92 B/P (MAP) 162/75 (104) 154/73 (100) Pulse Ox 90 96 93 O2 Delivery Vapotherm Vapotherm Vapotherm O2 Flow Rate 40.00 40.00 40.00 30.00 30.00 FiO2 40 05/02/23 00:00 Intake Total 500 ml Output Total 850 ml Balance -350 ml Weight (Pounds): 225 Weight (Ounces): 0.0 Weight (Calculated Kilograms): 102.277222 Constitutional: AAO x 3, well-developed, well-nourished, other (anxious) Respiratory: other (coarse breathsounds throughout, dimininished lower lobes bilat) Cardiovascular: regular rate-rhythm; No JVD; S1 and S2 Gastrointestional: No tender; soft; No guarding; audible bowel sounds Extremities: other (bilat LE pitting edema) Neurologic/Psychiatric: other (moves all extremities) Skin: No rash on exposed areas, No ulcerations on exposed areas Results/Procedures: Labs Laboratory Tests 05/01/23 16:25: Glucometer 21*L 05/01/23 17:28: Glucometer 97 05/01/23 18:22: Glucometer 87 05/01/23 20:40: Glucometer 108 05/02/23 04:21: White Blood Count 10.2, Red Blood Count 2.77L, Hemoglobin 7.8L, Hematocrit 25L, Mean Corpuscular Volume 89, Mean Corpuscular Hemoglobin 28, Mean Corpuscular Hemoglobin Concent 32, Red Cell Distribution Width 18.5H, Platelet Count 235, Mean Platelet Volume 11.7, Immature Granulocyte % (Auto) 1, Neutrophils (%) (Auto) 95H, Lymphocytes (%) (Auto) 3L, Monocytes (%) (Auto) 2, Eosinophils (%) (Auto) 0, Basophils (%) (Auto) 0, Neutrophils # (Auto) 9.7H, Lymphocytes # (Auto) 0.3L, Monocytes # (Auto) 0.2, Eosinophils # (Auto) 0.0, Basophils # (Auto) 0.0, Immature Granulocyte # (Auto) 0.1, Sodium Level 144, Potassium Level 4.7, Chloride Level 110H, Carbon Dioxide Level 21, Anion Gap 13, Blood Urea Nitrogen 84H, Creatinine 1.98H, Estimat Glomerular Filtration Rate 36, BUN/Creatinine Ratio 42, Glucose Level 185H, Calcium Level 8.4L, Corrected Calcium 9.3, Total Bilirubin 0.4, Aspartate Amino Transf (AST/SGOT) 19, Alanine Aminotransferase (ALT/SGPT) 26, Alkaline Phosphatase 47, Total Protein 5.6L, Albumin 2.9L 05/02/23 05:17: Glucometer 192H 05/02/23 10:39: Glucometer 246H 05/02/23 15:45: Glucometer 216H Microbiology 04/30/23 MRSA Screen - Final, Complete MRSA not isolated 04/30/23 Blood Culture - Preliminary, Resulted No growth Laboratory Tests 04/30/23 17:28 05/01/23 04:30 05/01/23 12:59 05/02/23 04:21 A/P: Assessment: Acute on chronic respiratory failure likely multi-factorial d/t acute on chronic exacerbation of COPD due to pneumonia - requiring Bi-pap tx initially - now on Vapo-therm - Echocardiogram of 02-26-[address] Pizarro showed LVEF 55-60% - CT of the chest 04-18-23: 1. Airspace and groundglass opacities in the lungs bilaterally,concerning for infection. Aspiration and an inflammatory process or in the differential as well. Underlying neoplasm is not excluded. Chronic scarring and bullous disease in the right lung apex. Small left and trace right pleural effusions. Chronic diastolic CHF Hypertension DM - management per medical services. CAD - Cardiac cath of by Dr. Pizarro showed: Moderate disease in the mid right coronary artery with occlusion of the distal right PDA, small artery not amendable to intervention. Patent multiple stents in the proximal and mid LAD and proximal mid circumflex artery with mild to moderate in-stent restenosis and mild to moderate coronary artery disease in the left system nonobstructive disease. Normal left ventricular end-diastolic pressure - medical management advised at that time - continue antiplatelet therapy. Positive troponin (seen at time of last admission and again at time of this admission) - likely type II KS due to acute respiratory failure with hypoxia Reported h/o PAD in previous notes - details unknown Stage IV chronic kidney disease Ex tobaccoism, patient recently quit smoking Left bundle branch block - chronic Anemia - management per medical services Moderate to severe back pain. Plan: Complex management Acute on chronic resp failure likely d/t pneumonia, acute on chronic exacerbation of COPD, chronic diastolic CHF - management of COPD per medical services - management of pneumonia per medical services Chronic diastolic CHF - resume diuretics Bilat LE swelliing - stop Norvasc BP not well controlled - increase BB CKD 4 - monitor renal function closely - Cr improving Anemia - management per medical services - we recommend consideration of blood transfusion NORBERTO DRIVER MD FACP FAC CCDS May 02, 2023 16:13
[2023-05-02] MEDS: MONTELUKAST 10 MG TABLET PO SCH (17:14)
[2023-05-02] MEDS: TAMSULOSIN 0.4 MG (FLOMAX) CAP PO SCH (17:14)
[2023-05-02 21:29] VITALS: BP_DIAS 138
[2023-05-02] MEDS ORDERED: TROUGH ORDER-PHARMACY XX NR (22:15)
[2023-05-03 02:09] VITALS: BP_DIAS 131
[2023-05-03] MEDS: RT-Ipratropium/Albuterol NEB 3 ML VIAL INH SCH ×6 (02:09→21:47)
[2023-05-03] MEDS: D5 NS 1,000 ML IV SOLN 1,000 ML IV SCH ×3 (02:17→19:07)
[2023-05-03 04:08] LABS: BASOPHILS % (AUTO) 0 % (0-10); EOSINOPHILS # (AUTO) 0.2 10^3/uL (0.0-0.3); EOSINOPHILS % (AUTO) 1 % (0-10); HEMATOCRIT 23 % (40-54); HEMOGLOBIN 7.2 g/dL (13.3-17.7); LYMPHOCYTES # (AUTO) 1.2 10^3/uL (1.0-4.0); LYMPHOCYTES % (AUTO) 11 % (12-44); MEAN CORPUSCULAR HEMOGLOBIN 28 pg (25-34); MEAN CORPUSCULAR HGB CONC 31 g/dL (32-36); MEAN CORPUSCULAR VOLUME 89 fL (80-99); MEAN PLATELET VOLUME 11.5 fL (9.0-12.2); MONOCYTES % (AUTO) 9 % (0-12); NEUTROPHILS # (AUTO) 9.2 10^3/uL (1.8-7.8); NEUTROPHILS % (AUTO) 79 % (42-75); PLATELET COUNT 214 10^3/uL (130-400); WHITE BLOOD COUNT 11.7 10^3/uL (4.3-11.0)
[2023-05-03 04:28] LABS: ALBUMIN 2.8 GM/DL (3.2-4.5); BILIRUBIN,TOTAL 0.6 MG/DL (0.1-1.0); CALCIUM 8.1 MG/DL (8.5-10.1); CREATININE SERUM 2.28 MG/DL (0.60-1.30); POTASSIUM 4.4 MMOL/L (3.6-5.0); TOTAL PROTEIN 5.4 GM/DL (6.4-8.2)
[2023-05-03] MEDS: POTASSIUM CHLORIDE 20 MEQ TABLET PO SCH (05:22)
[2023-05-03] MEDS: NS IV 1000 ML 1,000 ML IV SCH ×2 (05:22→16:59)
[2023-05-03] MEDS: POTASSIUM CL 10MEQ/50ML IVPB 50 ML IV SCH (05:22)
[2023-05-03] MEDS: MAGNESIUM 1 GM/100 ML IVPB 100 ML IV SCH (05:22)
[2023-05-03] MEDS: PIPERACILLIN SODIUM/TAZOBACTAM 4.5 GM in NS (IVPB) 100 ML 100 ML IV SCH ×3 (06:08→23:31)
[2023-05-03] MEDS: PANTOPRAZOLE 40 MG (PROTONIX) TAB PO SCH (06:09)
[2023-05-03] MEDS: inSUlin ASPART 1 UNIT/0.01 ML (PER UNIT) SC SCH ×4 (06:09→20:54)
[2023-05-03] MEDS: FLUTICASONE/VILANTEROL 200/25 MCG (7 DOSES) IH SCH (08:29)
[2023-05-03] MEDS: TIOTROPIUM INH 4 GM (SPIRIVA Respimat) IH SCH (08:29)
--- NOTE | 2023-05-03 08:47 | Tele-ICU Progress Note ---
Subjective Date Seen by a Provider: May 03, 2023 Time Seen by a Provider: 08:45 Subjective/Events-last exam (Tele-ICU Physician , consultation as per request of PCP Service provided via interactive audio and video telecommunications E-CARE system to a patient admitted to ICU bed in [facility]. Available chart/ vitals / labs / Images reviewed H&P is from ER notes Patient's information available about PMH, Shx, Fhx allergy reviewed in EMR. ROS as per chart and RN report Now in ICU, hemodynamically stable Video assessment done using teleICU camera, rest of exam as per RN Discussed with RN. 72 yo M admitted 04/30 for PNA, CHF, COPD, started on BIPAP now on vapotherm 40 lpm. FiO2 40%, spont RR 24 SpO2 99% Last CT chest still showed bilateral patchy infiltrates but improving On IV Vanco/Zosyn with Vanco trough level at 22, will hold redosing Sepsis Event Evaluation Height, Weight, BMI Height: 5'11.00" Weight: 225lbs. 0.0oz. 102.482025ia; 31.18 BMI Method:Stated Focused Exam Lactate Level 04/30/23 17:29: Lactic Acid Level 2.30*H 04/30/23 19:31: Lactic Acid Level 0.60 Time of Focused Exam: 18:35 Exam Exam Patient acknowledged, consented, and participated in this virtual visit which was conducted using real time audio/video Vital Signs Date Time Temp Pulse Resp B/P (MAP) Pulse Ox O2 Delivery O2 Flow Rate FiO2 05/03/23 08:34 98 Vapotherm 40.00 50 05/03/23 08:33 98 Vapotherm 40.00 50 05/03/23 08:32 98 Vapotherm 40.00 40 05/03/23 08:12 Vapotherm 40.00 40.00 05/03/23 08:00 86 97 NIV Bilevel 30.00 05/03/23 07:14 36.5 NIV Bilevel 30.00 05/03/23 07:00 75 141/75 (97) 97 NIV Bilevel 30.00 05/03/23 07:00 74 05/03/23 06:00 77 160/78 (105) 94 Vapotherm 40.00 30.00 05/03/23 05:00 80 152/67 (95) 96 Vapotherm 40.00 30.00 05/03/23 04:04 95 NIV Bilevel 30 05/03/23 04:00 76 157/71 (99) 96 Vapotherm 40.00 30.00 05/03/23 03:00 73 168/81 (110) 98 Vapotherm 40.00 30.00 05/03/23 02:09 99 26 30.00 05/03/23 02:00 73 155/77 (103) 99 Vapotherm 40.00 30.00 05/03/23 01:00 80 05/03/23 01:00 74 131/68 (89) 97 Vapotherm 40.00 30.00 05/03/23 00:00 82 99 Vapotherm 40.00 30.00 05/02/23 23:30 95 NIV Bilevel 30 05/02/23 23:00 78 135/62 (86) 97 Vapotherm 40.00 30.00 05/02/23 22:00 82 145/70 (95) 97 Vapotherm 40.00 30.00 05/02/23 21:29 96 26 30.00 05/02/23 21:00 79 138/70 (92) 96 Vapotherm 40.00 30.00 05/02/23 20:00 92 Vapotherm 40 05/02/23 20:00 89 147/80 (102) 94 Vapotherm 40.00 30.00 05/02/23 19:00 93 153/71 (98) 93 Vapotherm 40.00 30.00 05/02/23 19:00 90 05/02/23 18:28 96 Vapotherm 40.00 40 05/02/23 18:00 87 94 Vapotherm 40.00 30.00 05/02/23 17:00 88 164/78 (106) 95 Vapotherm 40.00 30.00 05/02/23 16:11 36.7 05/02/23 16:00 97 NIV Bilevel 30 05/02/23 16:00 90 164/58 (93) 96 Vapotherm 40.00 30.00 05/02/23 15:00 92 154/73 (100) 93 Vapotherm 40.00 30.00 05/02/23 14:51 96 Vapotherm 40.00 40 05/02/23 14:00 96 162/75 (104) 90 Vapotherm 40.00 30.00 05/02/23 13:00 101 162/77 (105) 92 Vapotherm 40.00 30.00 05/02/23 12:34 98 05/02/23 12:18 36.8 05/02/23 12:00 93 161/83 (109) 93 Vapotherm 40.00 30.00 05/02/23 12:00 97 NIV Bilevel 30 05/02/23 11:00 98 153/92 (112) 95 Vapotherm 40.00 30.00 05/02/23 10:03 100 Vapotherm 40.00 50 05/02/23 10:00 96 140/67 (91) 100 Vapotherm 40.00 30.00 05/02/23 09:00 100 159/68 (98) 99 Vapotherm 40.00 50.00 I & O 05/03/23 07:00 Intake Total 3650 ml Output Total 1750 ml Balance 1900 ml Height & Weight Height: 5'11.00" Weight: 225lbs. 0.0oz. 102.637851pm; 31.18 BMI Method:Stated General Appearance: WD/WN, Anxious Respiratory: Rhonci, Wheezing (wheezing on left, decreased BS on right with crackles) Cardiovascular: Regular Rate, Rhythm Gastrointestinal: normal bowel sounds, non tender, soft, no organomegaly Extremity: Pedal Edema (+2 bilateral leg edema) Neurologic/Psychiatric: Alert, Oriented x3 Results Lab Laboratory Tests 05/01/23 12:59 05/02/23 04:21 05/03/23 03:43 Assessment/Plan Assessment/Plan PNA, COPD, CHF, will continue on abx, hold Vanco dosing, continue on vapotherm for now Continue Breo PRN albuterol, po Lasix On DVT and GIB prophylaxsis CKD Cr 2.28, will cut down on IVF, Episode of hypoglycemia, now resolved, pt is eating and drinking well Critical Care: Critically Ill Patient Time spent with patient (mins): 25 CAMERON CHEUNG MD May 03, 2023 08:46
--- NOTE | 2023-05-03 08:59 | Progress Note ---
Standard Progress Note Progress Notes/Assess & Plan Date Seen by a Provider: May 03, 2023 Focused Exam Lactate Level 04/30/23 17:29: Lactic Acid Level 2.30*H 04/30/23 19:31: Lactic Acid Level 0.60 Time of Focused Exam: 18:35 SHERI STONE MD May 03, 2023 08:59
[2023-05-03] MEDS ORDERED: FUROSEMIDE 40 MG TABLET PO SCH (09:00)
[2023-05-03] MEDS ORDERED: VANCOMYCIN 1 GM/NS 250 ML IVPB IV SCH ×2 (09:00)
[2023-05-03] MEDS: FOLIC ACID 1 MG TAB PO SCH (10:27)
[2023-05-03] MEDS: CYANOCOBALAMIN 1,000 MCG TABLET PO SCH (10:28)
[2023-05-03] MEDS: CLOPIDOGREL 75 MG TABLET PO SCH (10:28)
[2023-05-03] MEDS: ASPIRIN enteric coated 81MG TABLET PO SCH (10:29)
[2023-05-03] MEDS: FLUTICASONE NASAL SPRAY (120 SPRAYS) NS SCH (10:35)
--- NOTE | 2023-05-03 10:57 | Progress Note ---
SHERI BARRAZA MD 05/03/23 1057: Subjective HPI/CC On Admission Date Seen by Provider: May 03, 2023 Time Seen by Provider: 09:45 Subjective/Events-last exam Patient continuing to have shortness of breath. He is also feeling constipated. He otherwise has no concerns today. Would just like to get better. Review of Systems General: No Fatigue, No Appetite HEENT: No Head Aches Pulmonary: Dyspnea; No Cough Cardiovascular: No: Chest Pain, Palpitations, Edema Gastrointestinal: No: Nausea, Vomiting, Diarrhea, Constipation Genitourinary: No Dysuria Focused Exam Lactate Level 04/30/23 17:29: Lactic Acid Level 2.30*H 04/30/23 19:31: Lactic Acid Level 0.60 Time of Focused Exam: 18:35 Objective Exam Vital Signs Vital Signs Date Time Temp Pulse Resp B/P (MAP) Pulse Ox O2 Delivery O2 Flow Rate FiO2 05/03/23 12:00 89 146/69 (94) 99 NIV Bilevel 30.00 05/03/23 11:32 40 05/03/23 11:28 36.4 05/03/23 02:09 26 Capillary Refill : General Appearance: No Apparent Distress HEENT: PERRL/EOMI Neck: Full Range of Motion Respiratory: Chest Non Tender, No Accessory Muscle Use, No Respiratory Distress, Crackles (Mild in bases of lung), Other (On BiPAP) Cardiovascular: Regular Rate, Rhythm, No Edema, No Murmur Gastrointestinal: Normal Bowel Sounds, Non Tender, Soft Neurologic/Psychiatric: Alert, Oriented x3 Skin: Warm/Dry Results/Procedures Lab Laboratory Tests 05/03/23 03:43 Patient resulted labs reviewed. 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 Onset Date: Unknown Status: Chronic Assessment & Plan: Continue sliding scale insulin only due to prior episode of hypoglycemia during hospitalization (4) Anemia Status: Chronic Assessment & Plan: Hemoglobin of 7.8 --> 7.2 No overt signs of bleeding at this time we will continue to monitor Otherwise stable for now Qualifiers: Qualified Codes: D64.9 - Anemia, unspecified (5) BHAVANA (acute kidney injury) Status: Acute Assessment & Plan: Likely secondary to restart of furosemide Will continue furosemide for now due to edema and closely monitor kidney function (6) Peripheral edema Status: Acute Assessment & Plan: Continue home furosemide MARY MCDUFFIE DO 05/03/23 1553: Assessment/Plan Assessment and Plan Assess & Plan/Chief Complaint Rounded with Dr Barraza and interviewed the patient and discussed case in- depth with results review and med management. Maintain biPAP Needs Hospice and patient and will not accept that Predict respiratory distress and ultimate intubation and probable cardiac arrest LTAC possible? SHERI BARRAZA MD May 03, 2023 10:57 MARY MCDUFFIE DO May 03, 2023 15:53
[2023-05-03] MEDS ORDERED: VANCOMYCIN 750 MG/NS 250 ML IVPB IV SCH ×4 (12:00→22:30)
[2023-05-03] MEDS ORDERED: LACTULOSE SYRUP 10GM/15ML 30ML UDC PO PRN (12:30)
[2023-05-03] MEDS ORDERED: SENNA W/DOCUSATE (SENOKOT S) TABLET PO PRN (12:30)
[2023-05-03] MEDS ORDERED: FUROSEMIDE INJECTION 40 MG/4 ML VIAL IVP ONE (13:45)
--- NOTE | 2023-05-03 14:08 | Progress Note - Cardiology ---
Cardiology SOAP Progress Note Subjective: More short of breath More leg swelling More gen malaise and weakness No n/v/d No cp or palp or syncope Objective: I&O/Vital Signs 05/03/23 05/03/23 05/03/23 05/03/23 02:09 03:00 04:00 04:04 Pulse 99 73 76 Resp 26 B/P (MAP) 168/81 (110) 157/71 (99) Pulse Ox 98 96 95 O2 Delivery Vapotherm Vapotherm NIV Bilevel O2 Flow Rate 30.00 40.00 40.00 30.00 30.00 FiO2 30 05/03/23 05/03/23 05/03/23 05/03/23 05:00 06:00 07:00 07:00 Pulse 80 77 74 75 B/P (MAP) 152/67 (95) 160/78 (105) 141/75 (97) Pulse Ox 96 94 97 O2 Delivery Vapotherm Vapotherm NIV Bilevel O2 Flow Rate 40.00 40.00 30.00 30.00 30.00 05/03/23 05/03/23 05/03/23 05/03/23 07:14 08:00 08:12 08:32 Temp 36.5 Pulse 86 Pulse Ox 97 98 O2 Delivery NIV Bilevel NIV Bilevel Vapotherm Vapotherm O2 Flow Rate 30.00 30.00 40.00 40.00 40.00 FiO2 40 05/03/23 05/03/23 05/03/23 05/03/23 08:33 08:34 09:00 10:00 Pulse 90 89 B/P (MAP) 159/72 (101) 139/65 (89) Pulse Ox 98 98 96 98 O2 Delivery Vapotherm Vapotherm Vapotherm Vapotherm O2 Flow Rate 40.00 40.00 40.00 40.00 40.00 40.00 FiO2 50 50 05/03/23 05/03/23 05/03/23 05/03/23 10:40 11:00 11:28 11:32 Temp 36.4 Pulse 89 B/P (MAP) 149/67 (94) Pulse Ox 100 99 O2 Delivery NIV Bilevel NIV Bilevel NIV Bilevel Vapotherm O2 Flow Rate 30.00 30.00 30.00 40.00 FiO2 40 05/03/23 05/03/23 05/03/23 12:00 12:47 13:00 Pulse 89 92 82 B/P (MAP) 146/69 (94) 164/81 (108) Pulse Ox 99 99 O2 Delivery NIV Bilevel NIV Bilevel O2 Flow Rate 30.00 30.00 05/03/23 00:00 Intake Total 1600 ml Output Total 950 ml Balance 650 ml Weight (Pounds): 225 Weight (Ounces): 0.0 Weight (Calculated Kilograms): 102.339219 Constitutional: AAO x 3, well-developed, well-nourished, other (anxious) Respiratory: other (coarse breathsounds throughout, dimininished lower lobes bilat) Cardiovascular: regular rate-rhythm; No JVD; S1 and S2 Gastrointestional: No tender; soft; No guarding; audible bowel sounds Extremities: other (bilat LE pitting edema) Neurologic/Psychiatric: other (moves all extremities) Skin: No rash on exposed areas, No ulcerations on exposed areas Results/Procedures: Labs Laboratory Tests 05/02/23 15:45: Glucometer 216H 05/02/23 20:21: Glucometer 251H 05/02/23 22:18: Vancomycin Level Trough 22.5H 05/03/23 03:43: White Blood Count 11.7H, Red Blood Count 2.61L, Hemoglobin 7.2L, Hematocrit 23L, Mean Corpuscular Volume 89, Mean Corpuscular Hemoglobin 28, Mean Corpuscular Hemoglobin Concent 31L, Red Cell Distribution Width 18.8H, Platelet Count 214, Mean Platelet Volume 11.5, Immature Granulocyte % (Auto) 0, Neutrophils (%) (Auto) 79H, Lymphocytes (%) (Auto) 11L, Monocytes (%) (Auto) 9, Eosinophils (%) (Auto) 1, Basophils (%) (Auto) 0, Neutrophils # (Auto) 9.2H, Lymphocytes # (Auto) 1.2, Monocytes # (Auto) 1.0, Eosinophils # (Auto) 0.2, Basophils # (Auto) 0.0, Immature Granulocyte # (Auto) 0.1, Sodium Level 141, Potassium Level 4.4, Chloride Level 107, Carbon Dioxide Level 21, Anion Gap 13, Blood Urea Nitrogen 83H, Creatinine 2.28H, Estimat Glomerular Filtration Rate 30, BUN/Creatinine Ratio 36, Glucose Level 180H, Calcium Level 8.1L, Corrected Calcium 9.1, Total Bilirubin 0.6, Aspartate Amino Transf (AST/SGOT) 17, Alanine Aminotransferase (ALT/SGPT) 29, Alkaline Phosphatase 46, Total Protein 5.4L, Albumin 2.8L 05/03/23 06:04: Glucometer 173H 05/03/23 10:22: Glucometer 265H 05/03/23 11:16: Vancomycin Level Trough 19.7 Microbiology 04/30/23 MRSA Screen - Final, Complete MRSA not isolated 04/30/23 Blood Culture - Preliminary, Resulted No growth A/P: Assessment: Acute on chronic respiratory failure likely multi-factorial d/t acute on chronic exacerbation of COPD due to pneumonia - requiring Bi-pap tx initially - now on Vapo-therm - Echocardiogram of 02-26-[address] Pizarro showed LVEF 55-60% - CT of the chest 04-18-23: 1. Airspace and groundglass opacities in the lungs bilaterally,concerning for infection. Aspiration and an inflammatory process or in the differential as well. Underlying neoplasm is not excluded. Chronic scarring and bullous disease in the right lung apex. Small left and trace right pleural effusions. Ac on chronic diastolic CHF Hypertension DM - management per medical services. CAD - Cardiac cath of by Dr. Pizarro showed: Moderate disease in the mid right coronary artery with occlusion of the distal right PDA, small artery not amendable to intervention. Patent multiple stents in the proximal and mid LAD and proximal mid circumflex artery with mild to moderate in-stent restenosis and mild to moderate coronary artery disease in the left system nonobstructive disease. Normal left ventricular end-diastolic pressure - medical management advised at that time - continue antiplatelet therapy. Positive troponin (seen at time of last admission and again at time of this admission) - likely type II [place] due to acute respiratory failure with hypoxia Reported h/o PAD in previous notes - details unknown Stage IV chronic kidney disease Ex tobaccoism, patient recently quit smoking Left bundle branch block - chronic Anemia - management per medical services Moderate to severe back pain. Plan: * Diuretics as needed and as tolerate * Amlodipine d/c'd because of leg swelling * BB increase for better control of bp * Med and ICU svces managing resp failure and ac exac of COPD due to probable pneumonia * Monitor labs * We recommend blood transfusion. Med svce managing NORBERTO DRIVER MD FACP FACC CCDS May 03, 2023 14:08
[2023-05-03 14:39] VITALS: BP_DIAS 147
[2023-05-03] MEDS: MONTELUKAST 10 MG TABLET PO SCH (17:40)
[2023-05-03] MEDS: TAMSULOSIN 0.4 MG (FLOMAX) CAP PO SCH (17:40)
[2023-05-03 20:40] VITALS: BP_DIAS 144
[2023-05-03] MEDS: dexAMETHasone INJ 4 MG/ML SDV IV SCH (20:45)
[2023-05-03] MEDS ORDERED: TROUGH ORDER-PHARMACY XX NR (21:00)
[2023-05-03 21:48] VITALS: BP_DIAS 159
[2023-05-04] MEDS: NS IV 1000 ML 1,000 ML IV SCH ×2 (01:15→11:56)
[2023-05-04 02:18] VITALS: BP_DIAS 173
[2023-05-04] MEDS: RT-Ipratropium/Albuterol NEB 3 ML VIAL INH SCH ×6 (02:18→21:27)
[2023-05-04 04:45] LABS: BASOPHILS % (AUTO) 0 % (0-10); EOSINOPHILS % (AUTO) 0 % (0-10); HEMATOCRIT 23 % (40-54); HEMOGLOBIN 7.5 g/dL (13.3-17.7); LYMPHOCYTES # (AUTO) 0.5 10^3/uL (1.0-4.0); LYMPHOCYTES % (AUTO) 5 % (12-44); MEAN CORPUSCULAR HEMOGLOBIN 28 pg (25-34); MEAN CORPUSCULAR HGB CONC 32 g/dL (32-36); MEAN CORPUSCULAR VOLUME 88 fL (80-99); MEAN PLATELET VOLUME 11.5 fL (9.0-12.2); MONOCYTES # (AUTO) 0.6 10^3/uL (0.0-1.0); MONOCYTES % (AUTO) 6 % (0-12); NEUTROPHILS # (AUTO) 8.7 10^3/uL (1.8-7.8); NEUTROPHILS % (AUTO) 88 % (42-75); PLATELET COUNT 223 10^3/uL (130-400); WHITE BLOOD COUNT 9.9 10^3/uL (4.3-11.0)
[2023-05-04] MEDS: D5 NS 1,000 ML IV SOLN 1,000 ML IV SCH ×2 (05:17→15:30)
[2023-05-04 05:25] LABS: ALBUMIN 2.9 GM/DL (3.2-4.5); BILIRUBIN,TOTAL 0.6 MG/DL (0.1-1.0); CALCIUM 8.7 MG/DL (8.5-10.1); CREATININE SERUM 2.34 MG/DL (0.60-1.30); MAGNESIUM 1.8 MG/DL (1.6-2.4); POTASSIUM 4.5 MMOL/L (3.6-5.0); TOTAL PROTEIN 5.7 GM/DL (6.4-8.2)
[2023-05-04] MEDS: POTASSIUM CL 10MEQ/50ML IVPB 50 ML IV SCH (05:31)
[2023-05-04] MEDS: POTASSIUM CHLORIDE 20 MEQ TABLET PO SCH (05:31)
[2023-05-04] MEDS: MAGNESIUM 1 GM/100 ML IVPB 100 ML IV SCH (05:31)
[2023-05-04] MEDS: inSUlin ASPART 1 UNIT/0.01 ML (PER UNIT) SC SCH ×5 (06:08→20:55)
[2023-05-04] MEDS: PIPERACILLIN SODIUM/TAZOBACTAM 4.5 GM in NS (IVPB) 100 ML 100 ML IV SCH ×3 (06:08→23:14)
[2023-05-04] MEDS: PANTOPRAZOLE 40 MG (PROTONIX) TAB PO SCH (06:08)
[2023-05-04] MEDS: FLUTICASONE/VILANTEROL 200/25 MCG (7 DOSES) IH SCH (06:19)
[2023-05-04] MEDS: TIOTROPIUM INH 4 GM (SPIRIVA Respimat) IH SCH (06:19)
--- NOTE | 2023-05-04 07:59 | Tele-ICU Progress Note ---
Progress Note video rounds completed 72 y/o male admitted with hypoxemia and PNA. Was recently discharged with the same Put on BIPAP and zosyn and vanc (now stopped) Overall much improved PE: sitting up in bed with baseball cap, eating breakfast. ALL VSS and normal WBC: 9.9 Hgb: 7.5 Cardiology following for troponin leak thought to be demand ischemia Recent echo 55% EF IMP: PNA, and hypoxemia : improved PLAN: continue nebs, steroids and antibiotics I am reviewing this patient remotely and am unable to directly exam the patient. Review is based upon video, auditory and communication with nursing staff and review of medical records, labs and xrays. Time spent in review 20 minutes Focused Exam Height, Weight, BMI Height: 5'11.00" Weight: 225lbs. 0.0oz. 102.724532ym; 31.18 BMI Method:Stated Time of Focused Exam: 18:35 Labs Laboratory Tests 05/04/23 04:22 Results Results/Procedures Labs Laboratory Tests 05/03/23 03:43 05/04/23 04:22 Patient resulted labs reviewed. Results Labs Labs Laboratory Tests 05/03/23 10:22: Glucometer 265H 05/03/23 11:16: Vancomycin Level Trough 19.7 05/03/23 15:30: Glucometer 149H 05/03/23 20:37: Glucometer 164H 05/03/23 20:40: Vancomycin Level Trough 17.6 05/04/23 04:22: White Blood Count 9.9, Red Blood Count 2.67L, Hemoglobin 7.5L, Hematocrit 23L, Mean Corpuscular Volume 88, Mean Corpuscular Hemoglobin 28, Mean Corpuscular Hemoglobin Concent 32, Red Cell Distribution Width 18.7H, Platelet Count 223, Mean Platelet Volume 11.5, Immature Granulocyte % (Auto) 1, Neutrophils (%) (Auto) 88H, Lymphocytes (%) (Auto) 5L, Monocytes (%) (Auto) 6, Eosinophils (%) (Auto) 0, Basophils (%) (Auto) 0, Neutrophils # (Auto) 8.7H, Lymphocytes # (Auto) 0.5L, Monocytes # (Auto) 0.6, Eosinophils # (Auto) 0.0, Basophils # (Au to) 0.0, Immature Granulocyte # (Auto) 0.1, Sodium Level 140, Potassium Level 4.5, Chloride Level 106, Carbon Dioxide Level 23, Anion Gap 11, Blood Urea Nitrogen 78H, Creatinine 2.34H, Estimat Glomerular Filtration Rate 29, BUN/Creatinine Ratio 33, Glucose Level 218H, Calcium Level 8.7, Corrected Calcium 9.6, Magnesium Level 1.8, Total Bilirubin 0.6, Aspartate Amino Transf (AST/SGOT) 19, Alanine Aminotransferase (ALT/SGPT) 28, Alkaline Phosphatase 46, Total Protein 5.7L, Albumin 2.9L Microbiology 04/30/23 MRSA Screen - Final, Complete MRSA not isolated 04/30/23 Blood Culture - Preliminary, Resulted No growth CAMERON REIS MD May 04, 2023 07:59
--- NOTE | 2023-05-04 08:09 | Progress Note ---
SHERI STONE MD 05/04/23 0809: Subjective HPI/CC On Admission Date Seen by Provider: May 04, 2023 Time Seen by Provider: 10:00 Shortness of breath Subjective/Events-last exam Patient doing well today, has no concerns this morning. Feels his breathing is doing well today. Review of Systems General: No Fatigue; Appetite HEENT: No Head Aches Pulmonary: No Dyspnea, No Cough Cardiovascular: No: Chest Pain, Palpitations, Edema Gastrointestinal: No: Nausea, Vomiting, Diarrhea, Constipation Genitourinary: No Dysuria Neurological: No: Weakness Focused Exam Time of Focused Exam: 18:35 Objective Exam Vital Signs Vital Signs Date Time Temp Pulse Resp B/P (MAP) Pulse Ox O2 Delivery O2 Flow Rate FiO2 05/04/23 12:34 78 05/04/23 12:00 95 NIV Bilevel 30.00 05/04/23 12:00 36.4 05/04/23 10:14 22 05/04/23 10:00 177/75 (109) 05/04/23 08:45 40 Capillary Refill : General Appearance: No Apparent Distress HEENT: Moist Mucous Membranes Neck: Full Range of Motion Respiratory: Chest Non Tender, Lungs Clear, Normal Breath Sounds, No Accessory Muscle Use, No Respiratory Distress, Other (On BiPAP) Cardiovascular: Regular Rate, Rhythm, No Edema, No Murmur, Normal Peripheral Pulses Gastrointestinal: Normal Bowel Sounds, Non Tender, Soft Neurologic/Psychiatric: Alert, Oriented x3 Skin: Warm/Dry Results/Procedures Lab Laboratory Tests 05/04/23 04:22 Patient resulted labs reviewed. Assessment/Plan Assessment and Plan Assess & Plan/Chief Complaint Acute on chronic respiratory failure Diagnosis/Problems Diagnosis/Problems (1) Acute and chronic respiratory failure with hypoxia Status: Acute Assessment & Plan: Continues to be on BiPAP, however weaning down on FiO2, currently at 30% Poor prognosis given that patient has had repeated hospitalizations for similar findings Patient and family amenable to prison placement as patient will likely be nefit from regular and closer care Titrate as tolerated (2) COPD exacerbation Status: Acute Assessment & Plan: Continue vancomycin and Zosyn We will do Decadron 2 mg IV twice daily Continue inhalers (3) 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 Onset Date: Unknown Status: Chronic Assessment & Plan: Continue sliding scale insulin only due to prior episode of hypoglycemia during hospitalization Adjusted to mid dose sliding scale today given frequent and high hyperglycemia (4) Anemia Status: Chronic Assessment & Plan: Hemoglobin of 7.2 --> 7.5, stable No overt signs of bleeding at this time we will continue to monitor Qualifiers: Qualified Codes: D64.9 - Anemia, unspecified (5) BHAVANA (acute kidney injury) Status: Acute Assessment & Plan: Likely secondary to restart of furosemide Will continue furosemide for now due to edema and closely monitor kidney function (6) Peripheral edema Status: Acute Assessment & Plan: Continue home furosemide MARY MCDUFFIE DO 05/04/23 1630: Assessment/Plan Assessment and Plan Assess & Plan/Chief Complaint I performed a history and physical examination of the patient and discussed the management with the resident. I reviewed the residents note and agree with the documented findings and plan of care Spoke with at the bedsideedy is willing to go to a prison since she declines long-term care hospital and hospice and cannot tolerate home with home health and cannot tolerate inpatient rehab 3-hour physical therapy requirement and insurance declined anyway so now she will talk to social sciences professor tomorrow about prison placement.. SHERI STONE MD May 04, 2023 08:09 MARY MCDUFFIE DO May 04, 2023 16:30
[2023-05-04] MEDS ORDERED: TROUGH ORDER-PHARMACY XX NR (08:30)
[2023-05-04] MEDS: CLOPIDOGREL 75 MG TABLET PO SCH (09:17)
[2023-05-04] MEDS: CYANOCOBALAMIN 1,000 MCG TABLET PO SCH (09:17)
[2023-05-04] MEDS: ASPIRIN enteric coated 81MG TABLET PO SCH (09:17)
[2023-05-04] MEDS: FOLIC ACID 1 MG TAB PO SCH (09:18)
[2023-05-04] MEDS: FUROSEMIDE INJECTION 40 MG/4 ML VIAL IVP SCH (09:19)
[2023-05-04] MEDS: dexAMETHasone INJ 4 MG/ML SDV IV SCH ×2 (09:19→20:54)
[2023-05-04] MEDS ORDERED: VANCOMYCIN 500 MG/NS 100 ML IV SCH ×2 (10:00)
[2023-05-04 10:17] VITALS: BP 156/68
--- NOTE | 2023-05-04 12:02 | Progress Note - Cardiology ---
Cardiology SOAP Progress Note Subjective: No cp or palp or syncope Gen weakness and malaise Modest improvement of shortness of breath Denies n/v/d Denies focal weakness Leg swelling better than yesterday Objective: I&O/Vital Signs 05/04/23 05/04/23 05/04/23 05/04/23 00:00 00:17 00:38 01:00 Temp 36.4 Pulse 82 85 B/P (MAP) 162/79 (106) 173/81 (111) Pulse Ox 100 100 O2 Delivery NIV Bilevel Vapotherm Vapotherm O2 Flow Rate 30.00 40.00 40.00 40.00 40.00 05/04/23 05/04/23 05/04/23 05/04/23 01:00 01:15 02:00 02:18 Pulse 78 74 75 Resp 22 B/P (MAP) 176/82 (113) Pulse Ox 100 100 O2 Delivery NIV Bilevel NIV Bilevel O2 Flow Rate 30.00 30.00 30.00 05/04/23 05/04/23 05/04/23 05/04/23 02:50 03:00 04:00 04:00 Temp 36.2 Pulse 89 84 B/P (MAP) 163/78 (106) 149/65 (93) Pulse Ox 90 96 O2 Delivery Vapotherm Vapotherm Vapotherm O2 Flow Rate 40.00 40.00 40.00 40.00 40.00 40.00 05/04/23 05/04/23 05/04/23 05/04/23 04:00 05:00 06:00 06:19 Pulse 96 84 B/P (MAP) 163/77 (105) Pulse Ox 100 91 99 96 O2 Delivery Vapotherm Vapotherm Vapotherm Vapotherm O2 Flow Rate 40.00 40.00 40.00 40.00 40.00 40.00 FiO2 40 40 05/04/23 05/04/23 05/04/23 05/04/23 07:00 07:00 07:59 08:00 Temp 36.2 Pulse 85 90 86 B/P (MAP) 169/88 (115) 160/86 (110) Pulse Ox 94 95 O2 Delivery Vapotherm Vapotherm O2 Flow Rate 40.00 40.00 40.00 40.00 05/04/23 05/04/23 05/04/23 05/04/23 08:45 09:00 10:00 10:14 Pulse 87 87 76 Resp 22 B/P (MAP) 156/68 (97) 177/75 (109) Pulse Ox 94 95 69 O2 Delivery Vapotherm Vapotherm Vapotherm O2 Flow Rate 40.00 40.00 40.00 30.00 40.00 40.00 FiO2 40 05/04/23 05/04/23 05/04/23 10:17 10:26 11:00 Temp 36.2 Pulse 76 82 Pulse Ox 69 95 O2 Delivery NIV Bilevel NIV Bilevel O2 Flow Rate 30.00 30.00 05/04/23 00:00 Intake Total 600 ml Output Total 2225 ml Balance -1625 ml Weight (Pounds): 225 Weight (Ounces): 0.0 Weight (Calculated Kilograms): 102.942081 Constitutional: AAO x 3, well-developed, well-nourished, other (anxious) Respiratory: other (coarse breathsounds throughout, dimininished lower lobes bilat) Cardiovascular: regular rate-rhythm; No JVD; S1 and S2 Gastrointestional: No tender; soft; No guarding; audible bowel sounds Extremities: other (bilat LE pitting edema) Neurologic/Psychiatric: other (moves all extremities) Skin: No rash on exposed areas, No ulcerations on exposed areas Results/Procedures: Labs Laboratory Tests 05/03/23 15:30: Glucometer 149H 05/03/23 20:37: Glucometer 164H 05/03/23 20:40: Vancomycin Level Trough 17.6 05/04/23 04:22: White Blood Count 9.9, Red Blood Count 2.67L, Hemoglobin 7.5L, Hematocrit 23L, Mean Corpuscular Volume 88, Mean Corpuscular Hemoglobin 28, Mean Corpuscular Hemoglobin Concent 32, Red Cell Distribution Width 18.7H, Platelet Count 223, Mean Platelet Volume 11.5, Immature Granulocyte % (Auto) 1, Neutrophils (%) (Auto) 88H, Lymphocytes (%) (Auto) 5L, Monocytes (%) (Auto) 6, Eosinophils (%) (Auto) 0, Basophils (%) (Auto) 0, Neutrophils # (Auto) 8.7H, Lymphocytes # (Auto) 0.5L, Monocytes # (Auto) 0.6, Eosinophils # (Auto) 0.0, Basophils # (Auto) 0.0, Immature Granulocyte # (Auto) 0.1, Sodium Level 140, Potassium Level 4.5, Chloride Level 106, Carbon Dioxide Level 23, Anion Gap 11, Blood Urea Nitrogen 78H, Creatinine 2.34H, Estimat Glomerular Filtration Rate 29, BUN/Creatinine Ratio 33, Glucose Level 218H, Calcium Level 8.7, Corrected Calcium 9.6, Magnesium Level 1.8, Total Bilirubin 0.6, Aspartate Amino Transf (AST/SGOT) 19, Alanine Aminotransferase (ALT/SGPT) 28, Alkaline Phosphatase 46, Total Protein 5.7L, Albumin 2.9L 05/04/23 09:02: Vancomycin Level Trough 16.0 05/04/23 10:35: Glucometer 441*H Microbiology 04/30/23 MRSA Screen - Final, Complete MRSA not isolated 04/30/23 Blood Culture - Preliminary, Resulted No growth Laboratory Tests 05/03/23 03:43 05/04/23 04:22 A/P: Assessment: Acute on chronic respiratory failure likely multi-factorial d/t acute on chronic exacerbation of COPD due to pneumonia - Echocardiogram of 02-26-[address] Pizarro showed LVEF 55-60% - CT of the chest 04-18-23: 1. Airspace and groundglass opacities in the lungs bilaterally,concerning for infection. Aspiration and an inflammatory process or in the differential as well. Underlying neoplasm is not excluded. Chronic scarring and bullous disease in the right lung apex. Small left and trace right pleural effusions. Ac on chronic diastolic CHF Hypertension DM - management per medical services. CAD - Cardiac cath of by Dr. Pizarro showed: Moderate disease in the mid right coronary artery with occlusion of the distal right PDA, small artery not amendable to intervention. Patent multiple stents in the proximal and mid LAD and proximal mid circumflex artery with mild to moderate in-stent restenosis and mild to moderate coronary artery disease in the left system nonobstructive disease. Normal left ventricular end-diastolic pressure - medical management advised at that time - continue antiplatelet therapy. Positive troponin (seen at time of last admission and again at time of this admission) - likely type II [place] due to acute respiratory failure with hypoxia Reported h/o PAD in previous notes - details unknown Stage IV chronic kidney disease Ex tobaccoism, patient recently quit smoking Left bundle branch block - chronic Anemia - management per medical services Moderate to severe back pain. Plan: * Diuretics as needed and as tolerate * Amlodipine d/c'd on 05/02/23 because of leg swelling * BB increased for better control of bp * Med and ICU svces managing resp failure and ac exac of COPD due to probable pneumonia * Monitor labs * We recommend blood transfusion. Med svce managing * I spoke with her and his and answered CV-related questions NORBERTO DRIVER MD FACP FAC CCDS May 04, 2023 12:02
[2023-05-04 14:46] VITALS: BP_DIAS 162
[2023-05-04] MEDS: MONTELUKAST 10 MG TABLET PO SCH (17:09)
[2023-05-04] MEDS: TAMSULOSIN 0.4 MG (FLOMAX) CAP PO SCH (17:10)
[2023-05-05 02:59] VITALS: BP_DIAS 172
[2023-05-05] MEDS: RT-Ipratropium/Albuterol NEB 3 ML VIAL INH SCH ×6 (02:59→21:35)
[2023-05-05 05:07] LABS: BASOPHILS % (AUTO) 0 % (0-10); EOSINOPHILS # (AUTO) 0.1 10^3/uL (0.0-0.3); EOSINOPHILS % (AUTO) 1 % (0-10); HEMATOCRIT 24 % (40-54); HEMOGLOBIN 7.4 g/dL (13.3-17.7); LYMPHOCYTES # (AUTO) 0.7 10^3/uL (1.0-4.0); LYMPHOCYTES % (AUTO) 7 % (12-44); MEAN CORPUSCULAR HEMOGLOBIN 27 pg (25-34); MEAN CORPUSCULAR HGB CONC 32 g/dL (32-36); MEAN CORPUSCULAR VOLUME 87 fL (80-99); MEAN PLATELET VOLUME 11.8 fL (9.0-12.2); MONOCYTES # (AUTO) 0.5 10^3/uL (0.0-1.0); MONOCYTES % (AUTO) 5 % (0-12); NEUTROPHILS # (AUTO) 8.4 10^3/uL (1.8-7.8); NEUTROPHILS % (AUTO) 87 % (42-75); PLATELET COUNT 207 10^3/uL (130-400); WHITE BLOOD COUNT 9.7 10^3/uL (4.3-11.0)
[2023-05-05 05:46] LABS: ALBUMIN 2.9 GM/DL (3.2-4.5); BILIRUBIN,TOTAL 0.5 MG/DL (0.1-1.0); CALCIUM 8.4 MG/DL (8.5-10.1); CREATININE SERUM 2.76 MG/DL (0.60-1.30); MAGNESIUM 1.7 MG/DL (1.6-2.4); TOTAL PROTEIN 5.7 GM/DL (6.4-8.2)
[2023-05-05] MEDS: TIOTROPIUM INH 4 GM (SPIRIVA Respimat) IH SCH (06:57)
[2023-05-05] MEDS: FLUTICASONE/VILANTEROL 200/25 MCG (7 DOSES) IH SCH (06:58)
[2023-05-05] MEDS: POTASSIUM CL 10MEQ/50ML IVPB 50 ML IV SCH (07:12)
[2023-05-05] MEDS: MAGNESIUM 1 GM/100 ML IVPB 100 ML IV SCH (07:13)
[2023-05-05] MEDS: POTASSIUM CHLORIDE 20 MEQ TABLET PO SCH (07:13)
[2023-05-05] MEDS: CYANOCOBALAMIN 1,000 MCG TABLET PO SCH (07:32)
[2023-05-05] MEDS: ASPIRIN enteric coated 81MG TABLET PO SCH (07:32)
[2023-05-05] MEDS: PANTOPRAZOLE 40 MG (PROTONIX) TAB PO SCH (07:33)
[2023-05-05] MEDS: FOLIC ACID 1 MG TAB PO SCH (07:33)
[2023-05-05] MEDS: CLOPIDOGREL 75 MG TABLET PO SCH (07:33)
[2023-05-05] MEDS: inSUlin ASPART 1 UNIT/0.01 ML (PER UNIT) SC SCH ×4 (07:34→21:44)
[2023-05-05] MEDS: FUROSEMIDE INJECTION 40 MG/4 ML VIAL IVP SCH (07:35)
[2023-05-05] MEDS: dexAMETHasone INJ 4 MG/ML SDV IV SCH ×2 (07:35→21:43)
[2023-05-05] MEDS: FLUTICASONE NASAL SPRAY (120 SPRAYS) NS SCH (09:15)
[2023-05-05] MEDS: PIPERACILLIN SODIUM/TAZOBACTAM 4.5 GM in NS (IVPB) 100 ML 100 ML IV SCH ×2 (09:16→15:28)
--- NOTE | 2023-05-05 11:07 | Tele-ICU Progress Note ---
Subjective Date Seen by a Provider: May 05, 2023 Time Seen by a Provider: 11:07 Subjective/Events-last exam (Tele-ICU Physician , Progress Note ) Service provided via interactive audio and video telecommunications E-CARE system to a patient admitted to ICU bed in [facility]. Patient is seen today due to persistent need of ICU care Available chart/ vitals / labs / Images reviewed Video assessment done using teleICU camera, rest of exam as per RN Discussed with RN Events overnight : Afebrile hemodynamically stable 05/05 VT 25% 35L A/P Impression 1. Acute on chronic respiratory failure-off bipap , on VT high flow - improving , no dyspnea com-plaind , off BIPAP repeat cxr tomorow Underlying pneumonia- CT chest infiltrates , improving - follow wiup cxr - finiched abx Acute on chronic congestive heart failure - diuretics as per cards Acute on chronic kidney disease - Slightly worse , presumed due to diuretics - on IV as per cards small left and trace right pleural effusions VTE Prophylaxis: hep sq Stress Ulcer Prophylaxis: na Plans in collaboration with bedside consultants and IM MDs. Discussed with RN to reach out if any questions or concerns Case and care daily discussed on multidisciplinary rounds ( RN, PharmD, Chief Medical Officer , Respiratory Therapy, ball worker ) A total of 15 minutes of critical care time was devoted to this patient today, required to treat and/or prevent further deterioration of critical care condition ( as above ) . I am remotely monitoring this patient from another state. I am unable to do the bedside exam, and history/physical and pertinent information is taken from other notes in the computer and bedside staff. Sepsis Event Evaluation Height, Weight, BMI Height: 5'11.00" Weight: 225lbs. 0.0oz. 102.091781kj; 31.03 BMI Method:Stated Focused Exam Time of Focused Exam: 18:35 Exam Exam Patient acknowledged, consented, and participated in this virtual visit which was conducted using real time audio/video Vital Signs Date Time Temp Pulse Resp B/P (MAP) Pulse Ox O2 Delivery O2 Flow Rate FiO2 05/05/23 10:49 93 Vapotherm 25.00 30 05/05/23 09:05 96 Vapotherm 25.00 30.00 05/05/23 09:00 148/58 (89) Vapotherm 30.00 30.00 05/05/23 08:02 36.6 05/05/23 08:00 85 174/85 (120) 93 Vapotherm 30.00 30.00 05/05/23 08:00 95 Vapotherm 25.00 35 05/05/23 07:01 92 Vapotherm 30.00 40 05/05/23 07:00 79 176/77 (116) 97 Vapotherm 30.00 30.00 05/05/23 07:00 85 05/05/23 06:58 92 Vapotherm 30.00 40 05/05/23 06:55 92 Vapotherm 30.00 40 05/05/23 06:00 79 175/80 (111) 99 Vapotherm 30.00 30.00 05/05/23 05:00 84 181/81 (114) 98 Vapotherm 30.00 30.00 05/05/23 04:20 Vapotherm 30.00 30.00 05/05/23 04:00 86 165/78 (107) 97 NIV Bilevel 30.00 05/05/23 04:00 Vapotherm 40.00 40 05/05/23 03:00 68 175/76 (109) 97 NIV Bilevel 30.00 05/05/23 02:59 71 24 98 30.00 05/05/23 02:00 71 172/80 (110) 96 NIV Bilevel 30.00 05/05/23 01:00 79 180/83 (115) 95 NIV Bilevel 30.00 05/05/23 00:53 82 05/05/23 00:00 73 173/68 (103) 96 NIV Bilevel 30.00 05/04/23 23:30 Vapotherm 40.00 40 05/04/23 23:21 176/70 (105) NIV Bilevel 30.00 05/04/23 23:00 81 97 Vapotherm 30.00 30.00 05/04/23 22:00 76 167/65 (99) 97 Vapotherm 30.00 30.00 05/04/23 21:27 92 Vapotherm 30.00 40 05/04/23 21:24 Vapotherm 30.00 30.00 05/04/23 21:00 72 164/77 (106) 94 NIV Bilevel 30.00 05/04/23 21:00 Vapotherm 40.00 40 05/04/23 20:01 NIV Bilevel 30.00 05/04/23 20:00 36.4 05/04/23 20:00 81 163/70 (101) 93 Vapotherm 30.00 40.00 05/04/23 19:00 80 05/04/23 19:00 80 169/75 (106) 94 Vapotherm 30.00 40.00 05/04/23 18:22 94 Vapotherm 30.00 40 05/04/23 18:00 81 179/82 (114) 97 Vapotherm 30.00 40.00 05/04/23 17:14 Vapotherm 30.00 40.00 05/04/23 17:00 79 156/72 (100) 99 Vapotherm 35.00 40.00 05/04/23 16:00 75 148/67 (94) 97 Vapotherm 35.00 40.00 05/04/23 16:00 Vapotherm 40.00 40 05/04/23 16:00 36.3 05/04/23 15:34 Vapotherm 35.00 40.00 05/04/23 15:00 72 97 NIV Bilevel 30.00 05/04/23 14:46 77 25 96 30.00 05/04/23 14:00 76 162/75 (104) 97 NIV Bilevel 30.00 05/04/23 13:00 80 96 NIV Bilevel 30.00 05/04/23 12:34 78 05/04/23 12:00 82 95 NIV Bilevel 30.00 05/04/23 12:00 36.4 05/04/23 12:00 Vapotherm 40.00 40 I & O 05/05/23 06:59 Intake Total 2050 ml Output Total 5350 ml Balance -3300 ml Height & Weight Height: 5'11.00" Weight: 225lbs. 0.0oz. 102.742500mr; 31.03 BMI Method:Stated General Appearance: No Apparent Distress HEENT: Moist Mucous Membranes Neck: Full Range of Motion Respiratory: Chest Non Tender, Lungs Clear, Normal Breath Sounds, No Accessory Muscle Use, No Respiratory Distress, Other Cardiovascular: Regular Rate, Rhythm, No Edema, No Murmur, Normal Peripheral Pulses Gastrointestinal: normal bowel sounds, non tender, soft, no organomegaly Extremity: Pedal Edema (+2 bilateral leg edema) Neurologic/Psychiatric: Alert, Oriented x3 Skin: Warm/Dry Results Lab Laboratory Tests 05/04/23 04:22 05/05/23 04:10 Assessment/Plan Assessment/Plan 1 JESSY RAMIREZ MD May 05, 2023 11:07
--- NOTE | 2023-05-05 14:05 | Physical Therapy Evaluation ---
PT Evaluation-General Medical Diagnosis Admission Date Apr 30, 2023 at 21:08 Medical Diagnosis: Pneumonia, respiratory failure Onset Date: Apr 30, 2023 Therapy Diagnosis Therapy Diagnosis: Gait deficit Height/Weight Height (Feet): 5 Height (Inches): 11.00 Weight (Pounds): 225 Weight (Ounces): 0.0 Precautions Precautions/Isolations: Fall Prevention, Standard Precautions Weight Bear Status Right Lower Extremity: Right Full Weight Bearing Left Lower Extremity: Left Full Weight Bearing Referral Physician: Dr. Sabillon Reason for Referral: Evaluation/Treatment Medical History Reviewed History: Yes Social History Home: Apartment Current Living Status: Spouse Entry Into Home: Level Entry Prior Prior Level of Function SCALE: Activities may be completed with or without assistive devices. 2-Lpotxnsoek-luxhjql completes the activity by him/herself with no assistance from a helper. 5-Set-up or Clean-up Assistance-helper sets up or cleans up; patient completes activity. [place] assists only prior to or following the activity. 4-Supervision or Touching Assistance-helper provides verbal cues and/or touching/steadying and/or contact guard assistance as patient completes activity. Assistance may be provided throughout the activity or intermittently. 3-Partial/Moderate Assistance-helper does LESS THAN HALF the effort. [place] lifts, holds or supports trunk or limbs, but provides less than half the effort. 2-Substantial/Maximal Assistance-helper does MORE THAN HALF the effort. [place] lifts or holds trunk or limbs and provides more than half the effort. 9-Legvltjhw-rpeytd does ALL the effort. Patient does none of the effort to complete the activity. Or, the assistance of 2 or more helpers is required for the patient to complete the activity. If activity was not attempted, code reason: 7-Patient Refused. 9-Not Applicable-not attempted and the patient did not perform the activity be fore the current illness, exacerbation or injury. 10-Not Attempted due to Environmental Limitations-(lack of equipment, weather restraints, etc.). 88-Not Attempted due to Medical Conditions or Safety Concerns. Bed Mobility: 6 Transfers (B,C,W/C): 6 Gait: 6 Indoor Mobility (Ambulation): Independent Prior Devices Use: Walker PT Evaluation-Current Subjective Patient sitting in chair upon PT arrival, agreeable to treatment. Patient rates pain currently at 0/10. Objective Patient Orientation: Person, Place, Time, Situation Attachments: Oxygen, Johnson Catheter ROM/Strength ROM Lower Extremities WFLs BLEs all planes Strength Lower Extremities 3+/5 BLEs all planes Sensory Vision: Wears Glasses Hearing: Functional Sensation Right Lower Extremit: Intact Sensation Left Lower Extremity: Intact Transfers Roll Left to Right (QC): 3 Sit to Lying (QC): 3 Lying to Sitting/Side of Bed(Q: 3 Sit to Stand (QC): 2 Gait Does the Patient Walk?: No and Walking Goal IS indicated Mode of Locomotion: Walk Anticipated Mode of Locomotion: Walk Gait Assistive Device: FWW Balance Sitting Static: Good Sitting Dynamic: Fair Standing Static: Fair Standing Dynamic: Fair Assessment/Needs Patient tolerated treatment fair. He is unable to ambulate at this time due to patients report of LE weakness and he is afraid the knees will give as they did previously. Patient performs all observed transfers with max for sit to stand. Patient stands at chair ~ 5 minutes with min/mod A. Patient in chair post treatment with all needs met, nursing notified, call light in hand. 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 Goals [facility] Goals PT [employer] Administrator Goals Time Frame: May 29, 2023 Roll Left & Right (QC): 6 Sit to Lying (QC): 6 Lying-Sitting on Side/Bed(QC): 6 Sit to Stand (QC): 6 Chair/Gbl-rp-Kkhzf Xfer(QC): 6 Toilet Transfer (QC): 6 Does the Patient Walk: Yes Walk 10 feet (QC): 4 Walk 50ft with 2 Turns (QC): 4 Walk 150 ft (QC): 4 PT Plan Problem List Problem List: Activity Tolerance, Functional Strength, Safety, Balance, Gait, Transfer, Bed Mobility, ROM Treatment/Plan Treatment Plan: Continue Plan of Care Treatment Plan: Bed Mobility, Education, Functional Activity González, Functional Strength, Group Therapy, Gait, Safety, Therapeutic Exercise, Transfers Treatment Duration: Jun 28, 2023 Frequency: 6 times per week Estimated Hrs Per Day: .25 hour per day Patient and/or Family Agrees t: Yes Safety Risks/Education Patient Education: Gait Training, Transfer Techniques Teaching Recipient: Patient Teaching Methods: Demonstration, Discussion Response to Teaching: Verbalize Understanding, Return Demonstration Time Time In: 1330 Time Out: 1351 DATE: May 05, 2023 Total Billed Treatment Time: 21 Total Billed Treatment Visit, LISA YADAV PT May 05, 2023 14:05
--- NOTE | 2023-05-05 14:22 | Progress Note - Hospitalist ---
MALIHA BLANCO 05/05/23 1422: Subjective HPI/CC On Admission Date Seen by Provider: May 05, 2023 Time Seen by Provider: 11:20 Shortness of breath Subjective/Events-last exam 72-year-old male with h/o COPD, CHF, ACS, and CKD presents to the ED with shortness of breath. Patient was recently discharged from ED w/ pneumonia & COPD. Started having severe shortness of breath while at home and then was admitted again to the ED. He also noted that his leg swelling has gotten worse and has been having severe orthopnea. Review of Systems Cardiovascular: Edema Focused Exam Time of Focused Exam: 18:35 Objective Exam Vital Signs Vital Signs Date Time Temp Pulse Resp B/P (MAP) Pulse Ox O2 Delivery O2 Flow Rate FiO2 05/05/23 13:00 75 05/05/23 12:00 155/65 (109) 97 Vapotherm 25.00 30.00 05/05/23 11:55 36.5 05/05/23 10:49 30 05/05/23 02:59 24 Capillary Refill : General Appearance: No Apparent Distress, Chronically ill HEENT: PERRL/EOMI, Pharynx Normal, Moist Mucous Membranes Neck: Full Range of Motion, Normal Inspection Respiratory: Chest Non Tender, Normal Breath Sounds, No Accessory Muscle Use, No Respiratory Distress Cardiovascular: Regular Rate, Rhythm, No Gallop, No JVD, No Murmur, Normal Peripheral Pulses Gastrointestinal: Normal Bowel Sounds, No Pulsatile Mass, Non Tender, Soft Extremity: Normal Capillary Refill, Normal Range of Motion Neurologic/Psychiatric: Alert, Oriented x3, Normal Mood/Affect Skin: Normal Color, Warm/Dry Results/Procedures Lab Laboratory Tests 05/05/23 04:10 Patient resulted labs reviewed. Assessment/Plan Assessment and Plan Assess & Plan/Chief Complaint Assessment: Acute & chronic respiratory failure with hypoxia COPD exacerbation T2DM Anemia BHAVANA Peripheral edema Plan: Continue BiPAP Continue antibiotics Continue sliding scale insulin Continue furosemide & closely monitor kidney function Monitor closely Critical Care: Critically Ill Patient CT MCDUFFIE DO 05/06/23 0552: Supervisory-Addendum Brief Verification & Attestation Participated in pt care: history, MDM, physical Personally performed: exam, history, MDM, supervision of care Care discussed with: Medical Student Procedures: n/a Results interpretation: Verified all documentation Verification and Attestation of Medical Student E/M Service A medical student performed and documented this service in my presence. I reviewed and verified all information documented by the medical student and made modifications to such information, when appropriate. I personally performed the physical exam and medical decision making. Ct Mcduffie, May 06, 2023,05:52 MALIHA BLANCO May 05, 2023 14:22 CT MCDUFFIE DO May 06, 2023 05:52
[2023-05-05] MEDS: inSUlin DETERMIR 1 UNIT/0.01 ML (CHARGE PER UNIT) SQ SCH ×2 (14:26→21:43)
[2023-05-05] MEDS: TAMSULOSIN 0.4 MG (FLOMAX) CAP PO SCH (16:38)
[2023-05-05] MEDS: MONTELUKAST 10 MG TABLET PO SCH (16:38)
--- NOTE | 2023-05-05 19:15 | Progress Note - Cardiology ---
Cardiology SOAP Progress Note Subjective: Shortness of breath modestly improved No cp or palp or syncope No n/v/d Gen weakness and malaise No focal weakness Leg swelling somewhat improved Objective: I&O/Vital Signs 05/05/23 05/05/23 05/05/23 05/05/23 08:00 08:00 08:02 09:00 Temp 36.6 Pulse 85 B/P (MAP) 174/85 (120) 148/58 (89) Pulse Ox 95 93 O2 Delivery Vapotherm Vapotherm Vapotherm O2 Flow Rate 25.00 30.00 30.00 30.00 30.00 FiO2 35 05/05/23 05/05/23 05/05/23 05/05/23 09:05 10:00 10:49 11:00 B/P (MAP) 157/70 (109) 164/68 (109) Pulse Ox 96 93 93 93 O2 Delivery Vapotherm Vapotherm Vapotherm Vapotherm O2 Flow Rate 25.00 25.00 25.00 25.00 30.00 30.00 30.00 FiO2 30 05/05/23 05/05/23 05/05/23 05/05/23 11:55 12:00 13:00 14:51 Temp 36.5 Pulse 80 75 B/P (MAP) 155/65 (109) Pulse Ox 97 91 O2 Delivery Vapotherm Vapotherm O2 Flow Rate 25.00 25.00 30.00 FiO2 30 05/05/23 05/05/23 16:00 18:46 Temp 37.0 Pulse 79 Resp 21 B/P (MAP) 155/66 (95) Pulse Ox 91 O2 Delivery Vapotherm Vapotherm O2 Flow Rate 25.00 25.00 35.00 FiO2 30 05/05/23 00:00 Intake Total 950 ml Output Total 2700 ml Balance -1750 ml Weight (Pounds): 225 Weight (Ounces): 0.0 Weight (Calculated Kilograms): 102.777891 Constitutional: AAO x 3, well-developed, well-nourished, other (anxious) Respiratory: other (coarse breathsounds throughout, dimininished lower lobes bilat (more so on the R), dullness to percussion on R base) Cardiovascular: regular rate-rhythm; No JVD; S1 and S2 Gastrointestional: No tender; soft; No guarding; audible bowel sounds Extremities: other (bilat LE pitting edema) Neurologic/Psychiatric: other (moves all extremities) Skin: No rash on exposed areas, No ulcerations on exposed areas Results/Procedures: Labs Laboratory Tests 05/04/23 20:38: Glucometer 259H 05/05/23 04:10: White Blood Count 9.7, Red Blood Count 2.70L, Hemoglobin 7.4L, Hematocrit 24L, Mean Corpuscular Volume 87, Mean Corpuscular Hemoglobin 27, Mean Corpuscular Hemoglobin Concent 32, Red Cell Distribution Width 18.5H, Platelet Count 207, Mean Platelet Volume 11.8, Immature Granulocyte % (Auto) 0, Neutrophils (%) (Auto) 87H, Lymphocytes (%) (Auto) 7L, Monocytes (%) (Auto) 5, Eosinophils (%) (Auto) 1, Basophils (%) (Auto) 0, Neutrophils # (Auto) 8.4H, Lymphocytes # (Auto) 0.7L, Monocytes # (Auto) 0.5, Eosinophils # (Auto) 0.1, Basophils # (Auto) 0.0, Immature Granulocyte # (Auto) 0.0, Sodium Level 143, Potassium Level 4.0, Chloride Level 105, Carbon Dioxide Level 26, Anion Gap 12, Blood Urea Nitrogen 73H, Creatinine 2.76#H, Estimat Glomerular Filtration Rate 24, BUN/Creatinine Ratio 26, Glucose Level 214H, Calcium Level 8.4L, Corrected Calcium 9.3, Magnesium Level 1.7, Total Bilirubin 0.5, Aspartate Amino Transf (AST/SGOT) 12, Alanine Aminotransferase (ALT/SGPT) 25, Alkaline Phosphatase 45, Total Protein 5.7L, Albumin 2.9L 05/05/23 10:34: Glucometer 256H 05/05/23 15:54: Glucometer 225H Microbiology 04/30/23 MRSA Screen - Final, Complete MRSA not isolated 04/30/23 Blood Culture - Preliminary, Resulted No growth Laboratory Tests 05/04/23 04:22 05/05/23 04:10 A/P: Assessment: Acute on chronic respiratory failure likely multi-factorial d/t acute on chronic exacerbation of COPD due to pneumonia - Echocardiogram of 02-26-[address] Pizarro showed LVEF 55-60% - CT of the chest 04-18-23: 1. Airspace and groundglass opacities in the lungs bilaterally,concerning for infection. Aspiration and an inflammatory process or in the differential as well. Underlying neoplasm is not excluded. Chronic scarring and bullous disease in the right lung apex. Small left and trace right pleural effusions. Ac on chronic diastolic CHF Hypertension DM - management per medical services. CAD - Cardiac cath of by Dr. Pizarro showed: Moderate disease in the mid right coronary artery with occlusion of the distal right PDA, small artery not amendable to intervention. Patent multiple stents in the proximal and mid LAD and proximal mid circumflex artery with mild to moderate in-stent restenosis and mild to moderate coronary artery disease in the left system nonobstructive disease. Normal left ventricular end-diastolic pressure - medical management advised at that time - continue antiplatelet therapy. Positive troponin (seen at time of last admission and again at time of this admission) - likely type II FL due to acute respiratory failure with hypoxia Reported h/o PAD in previous notes - details unknown Stage IV chronic kidney disease Ex tobaccoism, patient recently quit smoking Left bundle branch block - chronic Anemia - management per medical services Moderate to severe back pain. Plan: * Diuretics as needed and as tolerated * Amlodipine d/c'd on 05/02/23 because of leg swelling. BB increased for better control of bp * Med and ICU svces managing resp failure and ac exac of COPD due to probable pneumonia * Monitor labs * We recommend blood transfusion. Med svce managing NORBERTO DRIVER [facility] May 05, 2023 19:14
[2023-05-06] MEDS: RT-Ipratropium/Albuterol NEB 3 ML VIAL INH SCH ×6 (01:31→22:23)
[2023-05-06 05:04] LABS: BASOPHILS % (AUTO) 0 % (0-10); EOSINOPHILS # (AUTO) 0.1 10^3/uL (0.0-0.3); EOSINOPHILS % (AUTO) 1 % (0-10); HEMATOCRIT 24 % (40-54); HEMOGLOBIN 7.5 g/dL (13.3-17.7); LYMPHOCYTES # (AUTO) 0.6 10^3/uL (1.0-4.0); LYMPHOCYTES % (AUTO) 5 % (12-44); MEAN CORPUSCULAR HEMOGLOBIN 27 pg (25-34); MEAN CORPUSCULAR HGB CONC 31 g/dL (32-36); MEAN CORPUSCULAR VOLUME 88 fL (80-99); MEAN PLATELET VOLUME 11.3 fL (9.0-12.2); MONOCYTES # (AUTO) 0.7 10^3/uL (0.0-1.0); MONOCYTES % (AUTO) 5 % (0-12); NEUTROPHILS # (AUTO) 11.4 10^3/uL (1.8-7.8); NEUTROPHILS % (AUTO) 89 % (42-75); PLATELET COUNT 203 10^3/uL (130-400); WHITE BLOOD COUNT 12.9 10^3/uL (4.3-11.0)
[2023-05-06 05:36] LABS: ALBUMIN 3.1 GM/DL (3.2-4.5); BILIRUBIN,TOTAL 0.4 MG/DL (0.1-1.0); CALCIUM 8.4 MG/DL (8.5-10.1); CREATININE SERUM 2.59 MG/DL (0.60-1.30); MAGNESIUM 1.6 MG/DL (1.6-2.4); POTASSIUM 3.9 MMOL/L (3.6-5.0); TOTAL PROTEIN 5.9 GM/DL (6.4-8.2)
[2023-05-06 05:48] LABS: EOSINOPHILS % (MANUAL) 1 %; LYMPHOCYTES % (MANUAL) 5 %; MONOCYTES % (MANUAL) 4 %; NEUTROPHILS % (MANUAL) 90 %
[2023-05-06 05:50] LABS: ELLIPT/OVALOCYTES SLIGHT; HYPOCHROMASIA SLIGHT; MICROCYTOSIS SLIGHT
[2023-05-06] MEDS: POTASSIUM CL 10MEQ/50ML IVPB 50 ML IV SCH (06:00)
[2023-05-06] MEDS: inSUlin ASPART 1 UNIT/0.01 ML (PER UNIT) SC SCH ×4 (06:00→21:07)
[2023-05-06] MEDS: POTASSIUM CHLORIDE 20 MEQ TABLET PO SCH (06:00)
[2023-05-06] MEDS: MAGNESIUM 1 GM/100 ML IVPB 100 ML IV SCH (06:00)
--- NOTE | 2023-05-06 06:28 | Diagnostic Imaging Report ---
INDICATION: 72-year-old male pneumonia follow-up. COMPARISONS: 04/30/2023 FINDINGS: Single view of the chest shows the cardiac contour to be upper limits of normal. Again demonstrated are patchy right lung consolidations as well as in the left perihilar and left lower lobe consolidation the pattern and distribution which is similar to the previous study given differences in technique. Aortic calcific atherosclerosis seen. Soft tissues and bony thorax are grossly unchanged. IMPRESSION: Persistent right middle lobe, right lower lobe and left lingular and left lower lobe consolidation the pattern and distribution which is similar to the previous study. There is also some central venous congestion accentuated by the portable technique. Overall no change since the prior exam. Dictated by: Dictated on workstation # [id number]
[2023-05-06] MEDS: FLUTICASONE/VILANTEROL 200/25 MCG (7 DOSES) IH SCH (06:44)
[2023-05-06] MEDS: TIOTROPIUM INH 4 GM (SPIRIVA Respimat) IH SCH (06:44)
--- NOTE | 2023-05-06 07:04 | Progress Note - Hospitalist ---
Subjective HPI/CC On Admission Date Seen by Provider: May 06, 2023 Time Seen by Provider: 09:00 Shortness of breath Subjective/Events-last exam Still on Vapotherm Moving down to fourth floor Working with PT and OT Awaiting correction placement Review of Systems Pulmonary: Dyspnea Focused Exam Time of Focused Exam: 18:35 Objective Exam Vital Signs Vital Signs Date Time Temp Pulse Resp B/P (MAP) Pulse Ox O2 Delivery O2 Flow Rate FiO2 05/07/23 03:25 36.7 86 16 148/68 (94) 95 Vapotherm 40.00 20.00 05/07/23 01:59 40 Capillary Refill : General Appearance: No Apparent Distress, WD/WN, Chronically ill Respiratory: Lungs Clear, Normal Breath Sounds Cardiovascular: Regular Rate, Rhythm Neurologic/Psychiatric: Alert, Oriented x3, No Motor/Sensory Deficits, Normal Mood/Affect Results/Procedures Lab Patient resulted labs reviewed. Assessment/Plan Assessment and Plan Assess & Plan/Chief Complaint Assessment: Acute & chronic respiratory failure with hypoxia COPD exacerbation T2DM Anemia BHAVANA Peripheral edema Plan: Continue BiPAP at night and Vapotherm Continue antibiotics Continue sliding scale insulin Continue furosemide & closely monitor kidney function Monitor closely Critical Care Critically Ill Patient MARY MCDUFFIE DO May 06, 2023 07:04
[2023-05-06] MEDS ORDERED: POTASSIUM CHLORIDE 20 MEQ TABLET PO ONE (07:30)
[2023-05-06] MEDS: PANTOPRAZOLE 40 MG (PROTONIX) TAB PO SCH (07:36)
[2023-05-06] MEDS: inSUlin DETERMIR 1 UNIT/0.01 ML (CHARGE PER UNIT) SQ SCH ×2 (08:04→21:05)
[2023-05-06] MEDS: CYANOCOBALAMIN 1,000 MCG TABLET PO SCH (08:05)
[2023-05-06] MEDS: FUROSEMIDE INJECTION 40 MG/4 ML VIAL IVP SCH (08:05)
[2023-05-06] MEDS: ASPIRIN enteric coated 81MG TABLET PO SCH (08:05)
[2023-05-06] MEDS: dexAMETHasone INJ 4 MG/ML SDV IV SCH ×3 (08:05→21:06)
[2023-05-06] MEDS: FOLIC ACID 1 MG TAB PO SCH (08:06)
[2023-05-06] MEDS: FLUTICASONE NASAL SPRAY (120 SPRAYS) NS SCH (08:06)
[2023-05-06] MEDS: CLOPIDOGREL 75 MG TABLET PO SCH (08:06)
--- NOTE | 2023-05-06 08:37 | Tele-ICU Progress Note ---
Subjective Date Seen by a Provider: May 06, 2023 Subjective/Events-last exam (Tele-ICU Physician, Progress Note ) Service provided via interactive audio and video telecommunications E-CARE system to a patient admitted to ICU bed in [facility]. Patient is seen today due to persistent need of ICU care Available chart/ vitals / labs / Images reviewed Video assessment done using teleICU camera, rest of exam as per RN Discussed with RN Events overnight : Afebrile hemodynamically stable Hospital course: 05/06 Weaned to VT 25L/40% A/P 72 yo M hx of COPD, CKD came to ED with c/o SOB found to be hypoxic to 70s. CXR with bilateral opacities + right sided effusion. Initially started on BiPAP. Labs also notable for elevated creatinine cocnerning for BHAVANA Impression 1. Acute on chronic respiratory failure, likely multifactorial 2/2 pneumonia + CHF exacerbation -Stable -Currently on VT 25L/40% . Downtrending oxygen requirements -CXR with persistent RML, RLL and Left lingula, LLL consolidation consisent with pneumonia. Unchanged in appearance -Cont to wean as tolerated - Completed 5 day course of IV antibiotics. If conts to have rising WBC will likely need to restart for prolonged course 2. Acute on chronic congestive heart failure -Echocardiogram of 02-26-[address] Pizarro showed LVEF 55-60% -Cont diuresis -Cards following, appreciate recs 3. Acute on chronic kidney disease -Stable creatinine, may have cardiorenal component. Cont diuresis as tolerated 4. CAD - Cardiac cath of by Dr. Pizarro showed: Moderate disease in the mid right coronary artery with occlusion of the distal right PDA, small artery not amendable to intervention. Patent multiple stents in the proximal and mid LAD and proximal mid circumflex artery with mild to moderate in-stent restenosis and mild to moderate coronary artery disease in the left system nonobstructive disease. Normal left ventricular end-diastolic pressure - medical management advised at that time - continue antiplatelet therapy. VTE Prophylaxis: hep sq Stress Ulcer Prophylaxis: na Plans in collaboration with bedside consultants and IM MDs. Discussed with RN to reach out if any questions or concerns Case and care daily discussed on multidisciplinary rounds ( RN, PharmD, Stock Preparation Operator , Respiratory Therapy, animal care service worker ) A total of 15 minutes of critical care time was devoted to this patient today, required to treat and/or prevent further deterioration of critical care condition ( as above) Sepsis Event Evaluation Height, Weight, BMI Height: 5'11.00" Weight: 225lbs. 0.0oz. 102.401493ea; 31.03 BMI Method:Stated Focused Exam Time of Focused Exam: 18:35 Exam Exam Patient acknowledged, consented, and participated in this virtual visit which was conducted using real time audio/video Vital Signs Date Time Temp Pulse Resp B/P (MAP) Pulse Ox O2 Delivery O2 Flow Rate FiO2 05/06/23 07:54 36.7 89 21 186/84 (118) 95 Vapotherm 05/06/23 06:50 Vapotherm 05/06/23 06:50 99 Vapotherm 30.00 45 05/06/23 06:44 99 Vapotherm 30.00 45 05/06/23 04:29 79 174/80 (111) 98 Vapotherm 30.00 45.00 05/06/23 01:31 100 Vapotherm 25.00 45 05/06/23 01:00 77 99 Vapotherm 30.00 45.00 05/06/23 01:00 55 05/06/23 00:29 82 150/64 (92) 97 Vapotherm 25.00 30.00 05/05/23 23:29 82 143/57 (85) 99 Vapotherm 25.00 30.00 05/05/23 22:40 83 160/63 (104) 100 Vapotherm 25.00 30.00 05/05/23 21:40 87 143/53 (91) 89 Vapotherm 25.00 30.00 05/05/23 21:35 94 Vapotherm 25.00 35 05/05/23 21:00 100 Vapotherm 30.00 45 05/05/23 20:40 80 141/55 (92) 93 Vapotherm 25.00 30.00 05/05/23 20:04 36.5 05/05/23 19:40 79 141/59 (92) 96 Vapotherm 25.00 30.00 05/05/23 19:00 68 05/05/23 18:46 Vapotherm 25.00 30 05/05/23 16:00 37.0 79 21 155/66 (95) 91 Vapotherm 25.00 35.00 05/05/23 14:51 91 Vapotherm 25.00 30 05/05/23 13:00 75 05/05/23 12:00 80 155/65 (109) 97 Vapotherm 25.00 30.00 05/05/23 11:55 36.5 05/05/23 11:00 164/68 (109) 93 Vapotherm 25.00 30.00 05/05/23 10:49 93 Vapotherm 25.00 30 05/05/23 10:00 157/70 (109) 93 Vapotherm 25.00 30.00 05/05/23 09:05 96 Vapotherm 25.00 30.00 05/05/23 09:00 148/58 (89) Vapotherm 30.00 30.00 I & O 05/06/23 07:00 Intake Total 2225 ml Output Total 3625 ml Balance -1400 ml Height & Weight Height: 5'11.00" Weight: 225lbs. 0.0oz. 102.805229hw; 31.03 BMI Method:Stated General Appearance: No Apparent Distress, Chronically ill HEENT: PERRL/EOMI, Pharynx Normal, Moist Mucous Membranes Neck: Full Range of Motion, Normal Inspection Respiratory: Chest Non Tender, Normal Breath Sounds, No Accessory Muscle Use, No Respiratory Distress Cardiovascular: Regular Rate, Rhythm, No Gallop, No JVD, No Murmur, Normal Peripheral Pulses Gastrointestinal: normal bowel sounds, non tender, soft, no organomegaly Extremity: Normal Capillary Refill, Normal Range of Motion Neurologic/Psychiatric: Alert, Oriented x3, Normal Mood/Affect Skin: Normal Color, Warm/Dry Results Lab Laboratory Tests 05/05/23 04:10 05/06/23 04:27 Assessment/Plan Assessment/Plan . MARY BANUELOS MD May 06, 2023 08:37
--- NOTE | 2023-05-06 10:10 | Physical Therapy Daily Note ---
PT Daily Note-Current Subjective Patient very agreeable to participate with PT. Pain Section J - Health Conditions 1. Rarely or not at all 2. Occasionally 3. Frequently 4. Almost constantly 8. Unable to answer Pain Effect on Sleep: 1 Pain Interference with Therapy: 1 Pain Interference w/Day-to-Day: 1 Mental Status Patient Orientation: Normal For Age Attachments: Oxygen (vapotherm 30L/45%), Johnson Catheter Transfers SCALE: Activities may be completed with or without assistive devices. 7-Thuleoqsnj-hjtppyx completes the activity by him/herself with no assistance from a helper. 5-Set-up or Clean-up Assistance-helper sets up or cleans up; patient completes activity. [place] assists only prior to or following the activity. 4-Supervision or Touching Assistance-helper provides verbal cues and/or touching/steadying and/or contact guard assistance as patient completes activity. Assistance may be provided throughout the activity or intermittently. 3-Partial/Moderate Assistance-helper does LESS THAN HALF the effort. [place] lifts, holds or supports trunk or limbs, but provides less than half the effort. 2-Substantial/Maximal Assistance-helper does MORE THAN HALF the effort. [place] lifts or holds trunk or limbs and provides more than half the effort. 2-Euahdyonn-sdavoq does ALL the effort. Patient does none of the effort to complete the activity. Or, the assistance of 2 or more helpers is required for the patient to complete the activity. If activity was not attempted, code reason: 7-Patient Refused. 9-Not Applicable-not attempted and the patient did not perform the activity before the current illness, exacerbation or injury. 10-Not Attempted due to Environmental Limitations-(lack of equipment, weather restraints, etc.). 88-Not Attempted due to Medical Conditions or Safety Concerns. Lying to Sitting/Side of Bed(Q: 6 Sit to Stand (QC): 4 Chair/Urp-ak-Metnq Xfer(QC): 4 Weight Bearing Right Lower Extremity: Right Full Weight Bearing Left Lower Extremity: Left Full Weight Bearing Gait Training Distance: 10' Walk 10 feet (QC): 4 Gait Assistive Device: FWW Exercises Standing: Marching Standing Reps: 10 (2 sets) Assessment Patient's SAO2 remains >90% with all activity on vaptherm. PT to increase activity as tolerated by patient. Patient has noted bilateral LE pitting edema. PT Career Technical Education Teacher Goals Jail Goals PT Jail Goals Time Frame: May 29, 2023 Roll Left & Right (QC): 6 Sit to Lying (QC): 6 Lying-Sitting on Side/Bed(QC): 6 Sit to Stand (QC): 6 Chair/Wor-dz-Kuowp Xfer(QC): 6 Toilet Transfer (QC): 6 Does the Patient Walk: Yes Walk 10 feet (QC): 4 Walk 50ft with 2 Turns (QC): 4 Walk 150 ft (QC): 4 PT Plan Treatment/Plan Treatment Plan: Continue Plan of Care Treatment Plan: Bed Mobility, Education, Functional Activity González, Functional Strength, Group Therapy, Gait, Safety, Therapeutic Exercise, Transfers Treatment Duration: Jun 28, 2023 Frequency: 6 times per week Estimated Hrs Per Day: .25 hour per day Patient and/or Family Agrees t: Yes Time Time In: 900 Time Out: 914 DATE: May 06, 2023 Total Billed Treatment Time: 14 Total Billed Treatment 1 visit FA 14 min YUNG HASSAN PT May 06, 2023 10:10
--- NOTE | 2023-05-06 10:16 | Progress Note - Cardiology ---
Cardiology SOAP Progress Note Subjective: Sitting up on the side of the bed Continues to c/o LE swelling No c/o CP Feels breathing is better Objective: I&O/Vital Signs 05/13/23 05/13/23 05/13/23 05/13/23 07:17 07:19 07:31 08:49 Temp 36.6 Pulse 82 80 Resp 18 B/P (MAP) 141/59 (86) Pulse Ox 93 92 O2 Delivery High Flow N/C High Flow N/C High Flow N/C O2 Flow Rate 5.00 5.00 5.00 05/13/23 05/13/23 05/13/23 05/13/23 10:04 11:18 12:36 15:10 Temp 36.5 36.0 Pulse 138 83 82 74 Resp 18 16 B/P (MAP) 135/62 (86) 146/74 (98) Pulse Ox 94 96 O2 Delivery High Flow N/C High Flow N/C O2 Flow Rate 5.00 5.00 05/12/23 23:59 Intake Total 680 ml Output Total 1600 ml Balance -920 ml Weight (Pounds): 225 Weight (Ounces): 0.0 Weight (Calculated Kilograms): 102.848943 Constitutional: AAO x 3, well-developed, well-nourished, other Respiratory: other Cardiovascular: regular rate-rhythm, S1 and S2 Gastrointestional: soft, audible bowel sounds Extremities: other (bilat pitting edema from knees to feet) Neurologic/Psychiatric: other Skin: No rash on exposed areas, No ulcerations on exposed areas Results/Procedures: Labs Laboratory Tests 05/12/23 20:01: Glucometer 123H 05/13/23 05:13: White Blood Count 9.3, Red Blood Count 3.00L, Hemoglobin 8.4L, Hematocrit 27L, Mean Corpuscular Volume 89, Mean Corpuscular Hemoglobin 28, Mean Corpuscular Hemoglobin Concent 32, Red Cell Distribution Width 18.5H, Platelet Count 227, Mean Platelet Volume 11.6, Sodium Level 143, Potassium Level 3.6, Chloride Level 106, Carbon Dioxide Level 26, Anion Gap 11, Blood Urea Nitrogen 59H, Creatinine 2.17H, Estimat Glomerular Filtration Rate 32, BUN/Creatinine Ratio 27, Glucose Level 92, Calcium Level 8.8, Corrected Calcium 9.6, Magnesium Level 1.7, Total Bilirubin 0.5, Aspartate Amino Transf (AST/SGOT) 17, Alanine Aminotransferase (ALT/SGPT) 24, Alkaline Phosphatase 75, Total Protein 6.3L, Albumin 3.0L 05/13/23 05:15: Glucometer 93 05/13/23 10:35: Glucometer 170H 05/13/23 15:12: Glucometer 87 Microbiology 04/30/23 MRSA Screen - Final, Complete MRSA not isolated 04/30/23 Blood Culture - Final, Complete No growth A/P: Assessment: Acute on chronic respiratory failure likely multi-factorial d/t acute on chronic exacerbation of COPD due to pneumonia - Echocardiogram of 02-26-[address] Pizarro showed LVEF 55-60% - CT of the chest 04-18-23: 1. Airspace and groundglass opacities in the lungs bilaterally,concerning for infection. Aspiration and an inflammatory process or in the differential as well. Underlying neoplasm is not excluded. Chronic scarring and bullous disease in the right lung apex. Small left and trace right pleural effusions. Ac on chronic diastolic CHF Hypertension DM - management per medical services. CAD - Cardiac cath of by Dr. Pizarro showed: Moderate disease in the mid right coronary artery with occlusion of the distal right PDA, small artery not amendable to intervention. Patent multiple stents in the proximal and mid LAD and proximal mid circumflex artery with mild to moderate in-stent restenosis and mild to moderate coronary artery disease in the left system nonobstructive disease. Normal left ventricular end-diastolic pressure - medical management advised at that time - continue antiplatelet therapy. Positive troponin (seen at time of last admission and again at time of this admission) - likely type II [place] due to acute respiratory failure with hypoxia Reported h/o PAD in previous notes - details unknown Stage IV chronic kidney disease Ex tobaccoism, patient recently quit smoking Left bundle branch block - chronic Anemia - management per medical services Moderate to severe back pain. Plan: * Diuretics as needed and as tolerated * Amlodipine d/c'd on 05/02/23 because of leg swelling. BB increased for better control of bp * Med and ICU svces managing resp failure and ac exac of COPD due to probable pneumonia * BRAYAN hose for LE swelling * Monitor labs * We recommend blood transfusion. Med svce managing ENRIQUE HAYES May 06, 2023 10:16
--- NOTE | 2023-05-06 15:05 | Occupational Therapy Eval ---
OT Evaluation-General/PLF Medical Diagnosis Admission Date Apr 30, 2023 at 21:08 Medical Diagnosis: Pneumonia, respiratory failure Onset Date: Apr 30, 2023 Therapy Diagnosis Therapy Diagnosis: SOA Height/Weight Height (Feet): 5 Height (Inches): 11.00 Weight (Pounds): 225 Weight (Ounces): 0.0 Precautions Precautions/Isolations: Fall Prevention, Standard Precautions Referral Physician: Dr. Sabillon Referral Reason: Evaluation/Treatment Social History Home: Apartment Current Living Status: Spouse Entry Into Home: Level Entry ADL-Prior Level of Function SCALE: Activities may be completed with or without assistive devices. 5-Caqycrgmbu-okijjmv completes the activity by him/herself with no assistance from a helper. 5-Set-up or Clean-up Assistance-helper sets up or cleans up; patient completes activity. Ayr assists only prior to or following the activity. 4-Supervision or Touching Assistance-helper provides verbal cues and/or touching/steadying and/or contact guard assistance as patient completes activity. Assistance may be provided throughout the activity or intermittently. 3-Partial/Moderate Assistance-helper does LESS THAN HALF the effort. Ayr lifts, holds or supports trunk or limbs, but provides less than half the effort. 2-Substantial/Maximal Assistance-helper does MORE THAN HALF the effort. Ayr lifts or holds trunk or limbs and provides more than half the effort. 6-Djvjvbdix-nnbmun does ALL the effort. Patient does none of the effort to complete the activity. Or, the assistance of 2 or more helpers is required for the patient to complete the activity. If activity was not attempted, code reason: 7-Patient Refused. 9-Not Applicable-not attempted and the patient did not perform the activity before the current illness, exacerbation or injury. 10-Not Attempted due to Environmental Limitations-(lack of equipment, weather restraints, etc.). 88-Not Attempted due to Medical Conditions or Safety Concerns. Self Care: Independent Functional Cognition: Independent OT Current Status Subjective PREFERRED NAME 'BILL' Mental Status/Objective Patient Orientation: Person, Place, Time, Situation Attachments: Oxygen (Oxygen (vapotherm 30L/45%), Johnson Catheter) Current Glasses/Contacts: Yes Hand Dominance: Right Upper Extremity ROM WFLS Upper Extremity Coordination WFLS Upper Extremity Sensation WFL Upper Extremity Strength WFL, AGE APPROPRIATE, HOWEVER DOES NOT SUSTAIN W/ ACTIVITY ADL-Treatment Eating (QC): 6 Oral Hygiene (QC): 5 Shower/Bathe Self (QC): 88 Upper Body Dressing (QC): 4 Lower Body Dressing (QC): 4 On/Off Footwear (QC): 4 (SITTING EOB) Toileting Hygiene (QC): 5 (URINAL, DOES NOT COMPLETE HAND HYGIENE) Education OT Patient Education: Correct positioning, Energy conservation, Modified ADL techniques, Progress toward Goal/Update tx plan, Purpose of tx/functional activities, Reviewed precautions, Rehab process, Safety issues, Transfer techniques, Use of adapted equipment Teaching Recipient: Patient Teaching Methods: Demonstration, Discussion Response to Teaching: Reinforcement Needed OT [facility] Goals 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 2=Patient will verbalize/demonstrate understanding of assistive devices/modifications for ADL. 3=Patient will improve strength/tolerance for activity to enable patient to perform ADL's. OT Education/Plan Problem List/Assessment Assessment: Decreased Activ Tolerance, Impaired Self-Care Skills Discharge Recommendations Plan/Recommendations: Continue POC Treatment Plan/Plan of Care Treatment,Training & Education: Yes Patient would benefit from OT for education, treatment and training to promote independence in ADL's, mobility, safety and/or upper extremity function for ADL's. Plan of Care: ADL Retraining, Functional Mobility, Group Exercise/Act as Ind, UE Funct Exercise/Act Treatment Duration: May 16, 2023 Frequency: 3 times per week (3-5 TIMES PER WEEK) Estimated Hrs Per Day: .25 hour per day Agreement: Yes Rehab Potential: Fair Time Start Time: 14:30 Stop Time: 14:45 DATE: May 06, 2023 Total Time Billed (hr/min): 15 Billed Treatment Time EVM 15 MIN BETSEY GARCIA OT May 06, 2023 15:05
[2023-05-06 15:55] VITALS: BP 164/72
--- NOTE | 2023-05-06 16:01 | Progress Note - Cardiology ---
Cardiology SOAP Progress Note Subjective: No cp or palp or syncope Shortness of breath modestly improved Leg swelling as before Gen weakness as before No n/v/d No focal weakness Objective: I&O/Vital Signs 05/06/23 05/06/23 05/06/23 05/06/23 04:29 06:44 06:50 06:50 Pulse 79 B/P (MAP) 174/80 (111) Pulse Ox 98 99 99 O2 Delivery Vapotherm Vapotherm Vapotherm Vapotherm O2 Flow Rate 30.00 30.00 30.00 45.00 FiO2 45 45 05/06/23 05/06/23 05/06/23 05/06/23 07:00 07:54 08:00 08:28 Temp 36.7 Pulse 81 89 81 82 Resp 21 B/P (MAP) 186/84 (118) 146/62 (90) Pulse Ox 95 93 O2 Delivery Vapotherm Vapotherm O2 Flow Rate 30.00 45.00 05/06/23 05/06/23 05/06/23 05/06/23 09:00 10:18 10:27 10:35 Pulse Ox 95 97 94 O2 Delivery Vapotherm Vapotherm Vapotherm Vapotherm O2 Flow Rate 30.00 30.00 25.00 25.00 40.00 FiO2 45 45 40 05/06/23 05/06/23 05/06/23 05/06/23 11:31 12:00 13:00 13:00 Temp 36.7 Pulse 87 89 95 95 B/P (MAP) 160/100 (120) Pulse Ox 95 96 O2 Delivery Vapotherm Vapotherm Vapotherm O2 Flow Rate 25.00 25.00 40.00 40.00 05/06/23 05/06/23 05/06/23 05/06/23 14:00 14:17 14:21 14:23 Pulse 81 Pulse Ox 98 98 94 O2 Delivery Vapotherm Vapotherm Vapotherm Vapotherm O2 Flow Rate 25.00 25.00 20.00 20.00 40.00 40.00 FiO2 40 40 05/06/23 15:00 Pulse 86 Pulse Ox 96 O2 Delivery Vapotherm O2 Flow Rate 20.00 40.00 05/06/23 00:00 Intake Total 1375 ml Output Total 1675 ml Balance -300 ml Weight (Pounds): 225 Weight (Ounces): 0.0 Weight (Calculated Kilograms): 102.851937 Constitutional: AAO x 3, well-developed, well-nourished, other Respiratory: other Cardiovascular: regular rate-rhythm, S1 and S2 Gastrointestional: soft, audible bowel sounds Extremities: other (bilat pitting edema from knees to feet) Neurologic/Psychiatric: other Skin: No rash on exposed areas, No ulcerations on exposed areas Results/Procedures: Labs Laboratory Tests 05/05/23 21:39: Glucometer 190H 05/06/23 04:27: White Blood Count 12.9H, Red Blood Count 2.74L, Hemoglobin 7.5L, Hematocrit 24L, Mean Corpuscular Volume 88, Mean Corpuscular Hemoglobin 27, Mean Corpuscular Hemoglobin Concent 31L, Red Cell Distribution Width 18.5H, Platelet Count 203, Mean Platelet Volume 11.3, Immature Granulocyte % (Auto) 1, Neutrophils (%) (Auto) 89H, Lymphocytes (%) (Auto) 5L, Monocytes (%) (Auto) 5, Eosinophils (%) (Auto) 1, Basophils (%) (Auto) 0, Neutrophils # (Auto) 11.4H, Lymphocytes # (Au to) 0.6L, Monocytes # (Auto) 0.7, Eosinophils # (Auto) 0.1, Basophils # (Auto) 0.0, Immature Granulocyte # (Auto) 0.1, Neutrophils % (Manual) 90, Lymphocytes % (Manual) 5, Monocytes % (Manual) 4, Eosinophils % (Manual) 1, Band Neutrophils , Hypochromasia SLIGHT, Microcytosis SLIGHT, Elliptocytes SLIGHT, Sodium Level 143, Potassium Level 3.9, Chloride Level 106, Carbon Dioxide Level 25, Anion Gap 12, Blood Urea Nitrogen 66H, Creatinine 2.59H, Estimat Glomerular Filtration Rate 26, BUN/Creatinine Ratio 25, Glucose Level 179H, Calcium Level 8.4L, Corrected Calcium 9.1, Magnesium Level 1.6, Total Bilirubin 0.4, Aspartate Amino Transf (AST/SGOT) 14, Alanine Aminotransferase (ALT/SGPT) 23, Alkaline Phos phatase 45, Total Protein 5.9L, Albumin 3.1L 05/06/23 10:44: Glucometer 267H 05/06/23 15:55: Glucometer 260H Microbiology 04/30/23 MRSA Screen - Final, Complete MRSA not isolated 04/30/23 Blood Culture - Final, Complete No growth Laboratory Tests 05/05/23 04:10 05/06/23 04:27 A/P: Assessment: Acute on chronic respiratory failure likely multi-factorial d/t acute on chronic exacerbation of COPD due to pneumonia - Echocardiogram of 02-26-[address] Pizarro showed LVEF 55-60% - CT of the chest 04-18-23: 1. Airspace and groundglass opacities in the lungs bilaterally,concerning for infection. Aspiration and an inflammatory process or in the differential as well. Underlying neoplasm is not excluded. Chronic scarring and bullous disease in the right lung apex. Small left and trace right pleural effusions. Ac on chronic diastolic CHF Hypertension DM - management per medical services. CAD - Cardiac cath of by Dr. Pizarro showed: Moderate disease in the mid right coronary artery with occlusion of the distal right PDA, small artery not amen dable to intervention. Patent multiple stents in the proximal and mid LAD and proximal mid circumflex artery with mild to moderate in-stent restenosis and mild to moderate coronary artery disease in the left system nonobstructive disease. Normal left ventricular end-diastolic pressure - medical management advised at that time - continue antiplatelet therapy. Positive troponin (seen at time of last admission and again at time of this admission) - likely type II [place] due to acute respiratory failure with hypoxia Reported h/o PAD in previous notes - details unknown Stage IV chronic kidney disease Ex tobaccoism, patient recently quit smoking Left bundle branch block - chronic Anemia - management per medical services Moderate to severe back pain. Plan: * Diuretics as needed and as tolerated * Amlodipine d/c'd on 05/02/23 because of leg swelling. BB increased for better control of bp * Med and ICU svces managing resp failure and ac exac of COPD due to probable pneumonia * BRAYAN hose for LE swelling * Monitor labs * We recommend blood transfusion. Med svce managing NORBERTO DRIVER MD [facility] CCDS May 06, 2023 16:01
[2023-05-06] MEDS: RT-ALBUTEROL SULF 2.5 MG/3 ML PRE-MIX VIAL INH PRN (17:06)
[2023-05-06] MEDS: TAMSULOSIN 0.4 MG (FLOMAX) CAP PO SCH (17:32)
[2023-05-06] MEDS: MONTELUKAST 10 MG TABLET PO SCH (17:32)
[2023-05-06 19:50] VITALS: BP 160/71
[2023-05-06 23:49] VITALS: BP 159/89
[2023-05-07] VITALS (7 sets, daily range): BP systolic 148–182; BP diastolic 67–80
[2023-05-07] MEDS: RT-Ipratropium/Albuterol NEB 3 ML VIAL INH SCH ×6 (01:59→21:26)
--- NOTE | 2023-05-07 05:31 | Progress Note - Hospitalist ---
Subjective HPI/CC On Admission Date Seen by Provider: May 07, 2023 Time Seen by Provider: 12:00 Shortness of breath Subjective/Events-last exam Patient doing about the same Maintained on Vapotherm Blister on right lower leg will require wound care Focused Exam Time of Focused Exam: 18:35 Objective Exam Vital Signs Vital Signs Date Time Temp Pulse Resp B/P (MAP) Pulse Ox O2 Delivery O2 Flow Rate FiO2 05/07/23 13:24 86 05/07/23 11:29 36.6 20 182/80 (114) 93 Vapotherm 40.00 20.00 05/07/23 11:00 40 Capillary Refill : General Appearance: No Apparent Distress, WD/WN, Chronically ill Respiratory: Lungs Clear, Normal Breath Sounds, Decreased Breath Sounds Cardiovascular: Regular Rate, Rhythm Neurologic/Psychiatric: Alert, Oriented x3, No Motor/Sensory Deficits, Normal Mood/Affect Results/Procedures Lab Laboratory Tests 05/07/23 05:12 Patient resulted labs reviewed. Assessment/Plan Assessment and Plan Assess & Plan/Chief Complaint Assessment: Acute & chronic respiratory failure with hypoxia COPD exacerbation T2DM Anemia BHAVANA Peripheral edema Plan: Continue BiPAP at night and Vapotherm Continue antibiotics Continue sliding scale insulin Continue furosemide & closely monitor kidney function Monitor closely Needs alf Critical Care Critically Ill Patient MARY MCDUFFIE DO May 07, 2023 05:31
[2023-05-07 05:44] LABS: BASOPHILS % (AUTO) 0 % (0-10); EOSINOPHILS # (AUTO) 0.1 10^3/uL (0.0-0.3); EOSINOPHILS % (AUTO) 1 % (0-10); HEMATOCRIT 25 % (40-54); HEMOGLOBIN 7.7 g/dL (13.3-17.7); LYMPHOCYTES # (AUTO) 0.8 10^3/uL (1.0-4.0); LYMPHOCYTES % (AUTO) 6 % (12-44); MEAN CORPUSCULAR HEMOGLOBIN 28 pg (25-34); MEAN CORPUSCULAR HGB CONC 31 g/dL (32-36); MEAN CORPUSCULAR VOLUME 88 fL (80-99); MEAN PLATELET VOLUME 11.9 fL (9.0-12.2); MONOCYTES # (AUTO) 0.7 10^3/uL (0.0-1.0); MONOCYTES % (AUTO) 5 % (0-12); NEUTROPHILS # (AUTO) 11.6 10^3/uL (1.8-7.8); NEUTROPHILS % (AUTO) 88 % (42-75); PLATELET COUNT 197 10^3/uL (130-400); WHITE BLOOD COUNT 13.3 10^3/uL (4.3-11.0)
[2023-05-07 06:03] LABS: ALBUMIN 3.1 GM/DL (3.2-4.5); BILIRUBIN,TOTAL 0.3 MG/DL (0.1-1.0); CALCIUM 8.1 MG/DL (8.5-10.1); CREATININE SERUM 2.79 MG/DL (0.60-1.30); MAGNESIUM 1.5 MG/DL (1.6-2.4); POTASSIUM 3.8 MMOL/L (3.6-5.0)
[2023-05-07] MEDS: PANTOPRAZOLE 40 MG (PROTONIX) TAB PO SCH (06:07)
[2023-05-07] MEDS: inSUlin ASPART 1 UNIT/0.01 ML (PER UNIT) SC SCH ×4 (06:08→20:56)
[2023-05-07] MEDS: FLUTICASONE/VILANTEROL 200/25 MCG (7 DOSES) IH SCH (08:13)
[2023-05-07] MEDS: TIOTROPIUM INH 4 GM (SPIRIVA Respimat) IH SCH (08:13)
--- NOTE | 2023-05-07 09:21 | Progress Note - Cardiology ---
Cardiology SOAP Progress Note Subjective: No cp or palp or syncope Leg swelling worse Modest improvement of shortness of breath No n/v/d No focal weakness Gen weakness and malaise Objective: I&O/Vital Signs 05/06/23 05/06/23 05/07/23 05/07/23 22:24 23:49 01:00 01:59 Temp 37.2 Pulse 83 83 Resp 16 B/P (MAP) 159/89 (112) Pulse Ox 93 96 94 O2 Delivery Vapotherm Vapotherm Vapotherm O2 Flow Rate 20.00 40.00 20.00 20.00 FiO2 40 40 05/07/23 05/07/23 05/07/23 05/07/23 03:25 07:29 07:53 08:15 Temp 36.7 36.4 Pulse 86 83 88 Resp 16 20 B/P (MAP) 148/68 (94) 169/72 (104) Pulse Ox 95 94 93 O2 Delivery Vapotherm Vapotherm Vapotherm O2 Flow Rate 40.00 40.00 20.00 20.00 20.00 FiO2 40 05/07/23 05/07/23 08:17 08:17 O2 Delivery Vapotherm Vapotherm 05/07/23 00:00 Intake Total 1700 ml Output Total 2550 ml Balance -850 ml Weight (Pounds): 225 Weight (Ounces): 0.0 Weight (Calculated Kilograms): 102.978606 Constitutional: AAO x 3, well-developed, well-nourished, other Respiratory: other Cardiovascular: regular rate-rhythm, S1 and S2 Gastrointestional: soft, audible bowel sounds Extremities: other (bilat pitting edema from knees to feet) Neurologic/Psychiatric: other Skin: No rash on exposed areas, No ulcerations on exposed areas Results/Procedures: Labs Laboratory Tests 05/06/23 10:44: Glucometer 267H 05/06/23 15:55: Glucometer 260H 05/06/23 20:14: Glucometer 164H 05/07/23 05:02: Glucometer 271H 05/07/23 05:12: White Blood Count 13.3H, Red Blood Count 2.78L, Hemoglobin 7.7L, Hematocrit 25L, Mean Corpuscular Volume 88, Mean Corpuscular Hemoglobin 28, Mean Corpuscular Hemoglobin Concent 31L, Red Cell Distribution Width 18.4H, Platelet Count 197, Mean Platelet Volume 11.9, Immature Granulocyte % (Auto) 1, Neutrophils (%) (Auto) 88H, Lymphocytes (%) (Auto) 6L, Monocytes (%) (Auto) 5, Eosinophils (%) (Auto) 1, Basophils (%) (Auto) 0, Neutrophils # (Auto) 11.6H, Lymphocytes # (Auto) 0.8L, Monocytes # (Auto) 0.7, Eosinophils # (Auto) 0.1, Basophils # (Auto) 0.0, Immature Granulocyte # (Auto) 0.1, Sodium Level 141, Potassium Level 3.8, Chloride Level 104, Carbon Dioxide Level 27, Anion Gap 10, Blood Urea Nitrogen 65H, Creatinine 2.79H, Estimat Glomerular Filtration Rate 24, BUN/Creatinine Ratio 23, Glucose Level 252H, Calcium Level 8.1L, Corrected Calcium 8.8, Magnesium Level 1.5L, Total Bilirubin 0.3, Aspartate Amino Transf (AST/SGOT) 14, Alanine Aminotransferase (ALT/SGPT) 23, Alkaline Phosphatase 51, Total Protein 6.0L, Albumin 3.1L Microbiology 04/30/23 MRSA Screen - Final, Complete MRSA not isolated 04/30/23 Blood Culture - Final, Complete No growth Laboratory Tests 05/06/23 04:27 05/07/23 05:12 A/P: Assessment: Acute on chronic respiratory failure likely multi-factorial d/t acute on chronic exacerbation of COPD due to pneumonia - Echocardiogram of 02-26-[address] Pizarro showed LVEF 55-60% - CT of the chest 04-18-23: 1. Airspace and groundglass opacities in the lungs bilaterally,concerning for infection. Aspiration and an inflammatory process or in the differential as well. Underlying neoplasm is not excluded. Chronic s carring and bullous disease in the right lung apex. Small left and trace right pleural effusions. Ac on chronic diastolic CHF Marked leg edema Hypertension DM - management per medical services. CAD - Cardiac cath of by Dr. Pizarro showed: Moderate disease in the mid right coronary artery with occlusion of the distal right PDA, small artery not amendable to intervention. Patent multiple stents in the proximal and mid LAD and proximal mid circumflex artery with mild to moderate in-stent restenosis and mild to moderate coronary artery disease in the left system nonobstructive disease. Normal left ventricular end-diastolic pressure - medical management advised at that time - continue antiplatelet therapy. Positive troponin (seen at time of last admission and again at time of this admission) - likely type II [place] due to acute respiratory failure with hypoxia Reported h/o PAD in previous notes - details unknown Stage IV chronic kidney disease Ex tobaccoism, patient recently quit smoking Left bundle branch block - chronic Anemia - management per medical services Moderate to severe back pain. Plan: * Diuretics as needed and as tolerated. Additional furosemide today * Med svce managing resp failure and ac exac of COPD due to probable pneumonia * BRAYAN clements recommended for LE swelling * Monitor labs * We recommend blood transfusion. Med svce managing NORBERTO DRIVER MD FACP [facility] CCDS May 07, 2023 09:20
[2023-05-07] MEDS: CLOPIDOGREL 75 MG TABLET PO SCH (09:24)
[2023-05-07] MEDS: CYANOCOBALAMIN 1,000 MCG TABLET PO SCH (09:25)
[2023-05-07] MEDS: ASPIRIN enteric coated 81MG TABLET PO SCH (09:25)
[2023-05-07] MEDS: FOLIC ACID 1 MG TAB PO SCH (09:25)
[2023-05-07] MEDS: dexAMETHasone INJ 4 MG/ML SDV IV SCH (09:28)
[2023-05-07] MEDS: inSUlin DETERMIR 1 UNIT/0.01 ML (CHARGE PER UNIT) SQ SCH ×2 (09:28→20:55)
[2023-05-07] MEDS: FUROSEMIDE INJECTION 40 MG/4 ML VIAL IVP SCH (09:29)
[2023-05-07] MEDS ORDERED: FUROSEMIDE INJECTION 40 MG/4 ML VIAL IVP ONE (09:30)
[2023-05-07] MEDS: FLUTICASONE NASAL SPRAY (120 SPRAYS) NS SCH (09:37)
--- NOTE | 2023-05-07 14:31 | Wound Care Assessment ---
Wound Care Assessment Date Seen by Provider: May 07, 2023 Time Seen by Provider: 12:30 Chief Complaint Blister R. calf HPI This pleasant 72 year old patient was admitted to the hospital with COPD and pneumonia. He also has a h/o CHF, stage 4 CKD, and lymphedema. He has known PAD with intervention in 2020. I was consulted today after he developed a large serous fluid filled blister to anterior R. calf. I did deroof this blister at bedside and the resulting ulcer is partial thickness. It did continue to weep serous fluid (due to severe lymphedema) so we will dress accordingly. I do think this will dry up and heal relatively quickly with LE elevation (if tolerated). It is unlikely to require outpatient follow up if this is successful. Past Medical History: Admits Diabetes Type II, Admits Heart Disease, Admits Peripheral Artery Disease Chronic lymphedema, CHF, stage 4 CKD, anemia (significant) of renal disease, Tobaccoism, pneumonia Smoking Status: Current Someday Smoker Recreational Drug Use: No Alcohol Use: Denies Use Review of Systems Pulmonary: Dyspnea, Cough Cardiovascular: Edema Exam Vital Signs Date Time Temp Pulse Resp B/P (MAP) Pulse Ox O2 Delivery O2 Flow Rate FiO2 05/07/23 13:24 86 05/07/23 11:29 36.6 20 182/80 (114) 93 Vapotherm 40.00 20.00 05/07/23 11:00 40 Capillary Refill : General Appearance: WD/WN, no apparent distress HEENT: other (normal hearing) Neck: full range of motion Respiratory: no respiratory distress, no accessory muscle use, other (on vapotherm) Extremities: pedal edema (3+ bilateral) Neurologic/Psychiatric: alert, normal mood/affect, oriented x 3 Skin Problem Location: other (pale ) Skin Character: bullous, drainage Wound assessment:[id number]. The epithelialization is none. There is no tunneling or undermining. Drainage is large and serous. No granulation or necrotic. Margins flat. Partial thickness Results Laboratory Tests 05/06/23 15:55: Glucometer 260H 05/06/23 20:14: Glucometer 164H 05/07/23 05:02: Glucometer 271H 05/07/23 05:12: White Blood Count 13.3H, Red Blood Count 2.78L, Hemoglobin 7.7L, Hematocrit 25L, Mean Corpuscular Volume 88, Mean Corpuscular Hemoglobin 28, Mean Corpuscular Hemoglobin Concent 31L, Red Cell Distribution Width 18.4H, Platelet Count 197, Mean Platelet Volume 11.9, Immature Granulocyte % (Auto) 1, Neutrophils (%) (Au to) 88H, Lymphocytes (%) (Auto) 6L, Monocytes (%) (Auto) 5, Eosinophils (%) (Auto) 1, Basophils (%) (Auto) 0, Neutrophils # (Auto) 11.6H, Lymphocytes # (Auto) 0.8L, Monocytes # (Auto) 0.7, Eosinophils # (Auto) 0.1, Basophils # (Auto) 0.0, Immature Granulocyte # (Auto) 0.1, Sodium Level 141, Potassium Level 3.8, Chloride Level 104, Carbon Dioxide Level 27, Anion Gap 10, Blood Urea Nitrogen 65H, Creatinine 2.79H, Estimat Glomerular Filtration Rate 24, BUN/Creatinine Ratio 23, Glucose Level 252H, Calcium Level 8.1L, Corrected Calcium 8.8, Magnesium Level 1.5L, Total Bilirubin 0.3, Aspartate Amino Transf (AST/SGOT) 14, Alanine Aminotransferase (ALT/SGPT) 23, Alkaline Phosphatase 51, Total Protein 6.0L, Albumin 3.1L 05/07/23 10:25: Glucometer 188H Microbiology 04/30/23 MRSA Screen - Final, Complete MRSA not isolated 04/30/23 Blood Culture - Final, Complete No growth Assessment/Plan/Dx Assessment: 1. Partial thickness ulcer R. anterior calf (ruptured blister) 2. PAD (s/p intervention in 2020) 3. Chronic lymphedema 4. CHF/CAD 5. DM2 6. CKD stage 4 7. Anemia of renal disease 8. COPD with pneumonia 9. Tobaccoism Plan: 1. Silver alginate to wound bed and secure with BFD. Change daily until drainage resolved, then KASIA 2. No need for further evaluation currently 3. Elevation encouraged 4. Defer to cardiology 5. Defer to PCP 6. Defer to PCP 7. Transfusion recommended by cards today. This will certainly aide with wound healing and edema 8. Defer to PCP 9. Cessation adviseable THOMAS ANAND MD May 07, 2023 14:31
--- NOTE | 2023-05-07 14:55 | Physical Therapy Daily Note ---
PT Daily Note-Current Subjective Patient sitting on the EOB upon PT arrival, agreeable to treatment. Patient rates pain at 0/10. Pain Section J - Health Conditions 1. Rarely or not at all 2. Occasionally 3. Frequently 4. Almost constantly 8. Unable to answer Pain Effect on Sleep: 1 Pain Interference with Therapy: 1 Pain Interference w/Day-to-Day: 1 Transfers SCALE: Activities may be completed with or without assistive devices. 2-Frywwmbhry-iawitwp completes the activity by him/herself with no assistance from a helper. 5-Set-up or Clean-up Assistance-helper sets up or cleans up; patient completes activity. [place] assists only prior to or following the activity. 4-Supervision or Touching Assistance-helper provides verbal cues and/or touching/steadying and/or contact guard assistance as patient completes activity. Assistance may be provided throughout the activity or intermittently. 3-Partial/Moderate Assistance-helper does LESS THAN HALF the effort. [place] lifts, holds or supports trunk or limbs, but provides less than half the effort. 2-Substantial/Maximal Assistance-helper does MORE THAN HALF the effort. [place] lifts or holds trunk or limbs and provides more than half the effort. 8-Yavryqqzb-nbbxgi does ALL the effort. Patient does none of the effort to complete the activity. Or, the assistance of 2 or more helpers is required for the patient to complete the activity. If activity was not attempted, code reason: 7-Patient Refused. 9-Not Applicable-not attempted and the patient did not perform the activity before the current illness, exacerbation or injury. 10-Not Attempted due to Environmental Limitations-(lack of equipment, weather restraints, etc.). 88-Not Attempted due to Medical Conditions or Safety Concerns. Roll Left & Right (QC): 4 Sit to Lying (QC): 4 Lying to Sitting/Side of Bed(Q: 4 Sit to Stand (QC): 4 Chair/Kzu-ki-Muiha Xfer(QC): 4 Weight Bearing Right Lower Extremity: Right Full Weight Bearing Left Lower Extremity: Left Full Weight Bearing Gait Training Does the Patient Walk?: Yes Distance: 15' Walk 10 feet (QC): 4 Gait Assistive Device: FWW Assessment Current Status: Fair Progress Patient tolerated treatment well. Patient ambulates 15 feet with FWW, with CGA and verbal cues for safety, progression, posture and balance. Patient in chair post treatment with all needs met, nursing notified, call light in reach. Upon arriving to room, patient displayed a large blister on the anteromedial aspect of the distal right leg. Nurse notified and states she is addressing it. PT Spool Fixer Goals Residential Goals PT Residential Goals Time Frame: May 29, 2023 Roll Left & Right (QC): 6 Sit to Lying (QC): 6 Lying-Sitting on Side/Bed(QC): 6 Sit to Stand (QC): 6 Chair/Gpi-vo-Dchpt Xfer(QC): 6 Toilet Transfer (QC): 6 Does the Patient Walk: Yes Walk 10 feet (QC): 4 Walk 50ft with 2 Turns (QC): 4 Walk 150 ft (QC): 4 PT Plan Treatment/Plan Treatment Plan: Continue Plan of Care Treatment Plan: Bed Mobility, Education, Functional Activity González, Functional Strength, Group Therapy, Gait, Safety, Therapeutic Exercise, Transfers Treatment Duration: Jun 28, 2023 Frequency: 6 times per week Estimated Hrs Per Day: .25 hour per day Patient and/or Family Agrees t: Yes Safety Risks/Education Patient Education: Gait Training, Transfer Techniques Teaching Recipient: Patient Teaching Methods: Demonstration, Discussion Response to Teaching: Verbalize Understanding, Return Demonstration Time Time In: 1027 Time Out: 1040 DATE: May 07, 2023 Total Billed Treatment Time: 13 Total Billed Treatment Visit, LISA JIANG PT May 07, 2023 14:55
[2023-05-07] MEDS: RT-ALBUTEROL SULF 2.5 MG/3 ML PRE-MIX VIAL INH PRN (15:09)
--- NOTE | 2023-05-07 15:17 | Occupational Ther Daily Note ---
OT Current Status-Daily Note Subjective Sitting EOB on arrival, agreeable to ":small energy" exertion level session Pain Numeric Pain Scale: 5-Moderate Pain Location Body Site: Back Pain Description: Chronic Mental Status/Objective Patient Orientation: Person, Place, Time, Situation Attachments: Oxygen ADL-Treatment "I was home for one day and then I came back, I can't go home because I can't take care of myself " Therapy Code Descriptions/Definitions Functional [place] Measure: 0=Not Assessed/NA 4=Minimal Assistance 1=Total Assistance 5=Supervision or Setup 2=Maximal Assistance 6=Modified [place] 3=Moderate Assistance 7=Complete IndependenceSCALE: Activities may be completed with or without assistive devices. 1-Smhpysugzk-eqrqmij completes the activity by him/herself with no assistance from a helper. 5-Set-up or Clean-up Assistance-helper sets up or cleans up; patient completes activity. [place] assists only prior to or following the activity. 4-Supervision or Touching Assistance-helper provides verbal cues and/or touching/steadying and/or contact guard assistance as patient completes activity. Assistance may be provided throughout the activity or intermittently. 3-Partial/Moderate Assistance-helper does LESS THAN HALF the effort. [place] lifts, holds or supports trunk or limbs, but provides less than half the effort. 2-Substantial/Maximal Assistance-helper does MORE THAN HALF the effort. [place] lifts or holds trunk or limbs and provides more than half the effort. 1-Eskgvxvyr-wevxkp does ALL the effort. Patient does none of the effort to complete the activity. Or, the assistance of 2 or more helpers is required for the patient to complete the activity. If activity was not attempted, code reason: 7-Patient Refused. 9-Not Applicable-not attempted and the patient did not perform the activity before the current illness, exacerbation or injury. 10-Not Attempted due to Environmental Limitations-(lack of equipment, weather restraints, etc.). 88-Not Attempted due to Medical Conditions or Safety Concerns. Eating (QC): 6 Oral Hygiene (QC): 5 (sitting w/ rest breaks) Shower/Bathe Self (QC): 7 Upper Body Dressing (QC): 4 (rest breaks) Lower Body Dressing (QC): 3 (rest breaks) On/Off Footwear: 4 Toileting Hygiene (QC): 7 Toilet Transfer (QC): 7 5 sit/stands w/ breathing strategies, rest periods 30 between each set. Education OT Patient Education: Correct positioning, Energy conservation, Exercise program, Modified ADL techniques, Progress toward Goal/Update tx plan, Purpose of tx/functional activities, Reviewed precautions, Rehab process, Safety issues, Transfer techniques, Use of adapted equipment Teaching Recipient: Patient Teaching Methods: Demonstration Response to Teaching: Verbalize Understanding, Reinforcement Needed OT Mcc Goals Night [employer] Magistrate Goals Time Frame: May 16, 2023 Eating (QC): 6 Oral Hygiene (QC): 6 Toileting Hygiene (QC): 6 Shower/Bathe Self (QC): 5 Upper Body Dressing (QC): 6 Lower Body Dressing (QC): 6 On/Off Footwear (QC): 6 1=Demonstrate adherence to instructed precautions during ADL tasks. 2=Patient will verbalize/demonstrate understanding of assistive devices/modifications for ADL. 3=Patient will improve strength/tolerance for activity to enable patient to perform ADL's. OT Education/Plan Problem List/Assessment Assessment: Decreased Activ Tolerance, Decreased UE Strength, Impaired Self-Care Skills Discharge Recommendations Plan/Recommendations: Continue POC Therapy Discharge Recommendati: Post Acute OT Treatment Plan/Plan of Care Treatment,Training & Education: Yes Patient would benefit from OT for education, treatment and training to promote independence in ADL's, mobility, safety and/or upper extremity function for ADL's. Plan of Care: ADL Retraining, Functional Mobility, Group Exercise/Act as Ind, UE Funct Exercise/Act Treatment Duration: May 16, 2023 Frequency: 3 times per week (3-5 TIMES PER WEEK) Estimated Hrs Per Day: .25 hour per day Agreement: Yes Rehab Potential: Fair Time Start Time: 09:28 Stop Time: 09:39 DATE: May 07, 2023 Total Time Billed (hr/min): 11 Billed Treatment Time ADL 11 min BETSEY GARCIA OT May 07, 2023 15:17
[2023-05-07] MEDS: MONTELUKAST 10 MG TABLET PO SCH (16:53)
[2023-05-07] MEDS: TAMSULOSIN 0.4 MG (FLOMAX) CAP PO SCH (16:53)
[2023-05-08] MEDS: RT-Ipratropium/Albuterol NEB 3 ML VIAL INH SCH ×6 (02:12→22:26)
[2023-05-08 03:21] VITALS: BP 137/63
--- NOTE | 2023-05-08 05:54 | Progress Note - Hospitalist ---
Subjective HPI/CC On Admission Date Seen by Provider: May 08, 2023 Time Seen by Provider: 11:00 Shortness of breath Subjective/Events-last exam Patient doing much better Still on Vapotherm senior care will await Vapotherm discontinuation for 48 hours before accepting patient Focused Exam Time of Focused Exam: 18:35 Objective Exam Vital Signs Vital Signs Date Time Temp Pulse Resp B/P (MAP) Pulse Ox O2 Delivery O2 Flow Rate FiO2 05/08/23 20:02 High Flow N/C 6.00 05/08/23 19:38 37.0 76 18 147/64 (91) 98 05/08/23 14:34 40 Capillary Refill : General Appearance: No Apparent Distress, WD/WN, Chronically ill Respiratory: Lungs Clear, Normal Breath Sounds, Decreased Breath Sounds Cardiovascular: Regular Rate, Rhythm Neurologic/Psychiatric: Alert, Oriented x3, No Motor/Sensory Deficits, Normal Mood/Affect Results/Procedures Lab Laboratory Tests 05/08/23 05:25 Patient resulted labs reviewed. Assessment/Plan Assessment and Plan Assess & Plan/Chief Complaint Assessment: Acute & chronic respiratory failure with hypoxia COPD exacerbation T2DM Anemia BHAVANA Peripheral edema Plan: Wean Vapotherm Continue antibiotics Continue sliding scale insulin Continue furosemide & closely monitor kidney function Monitor closely Needs long-term Critical Care Critically Ill Patient MARY MCDUFFIE DO May 08, 2023 05:54
[2023-05-08] MEDS: PANTOPRAZOLE 40 MG (PROTONIX) TAB PO SCH (06:10)
[2023-05-08] MEDS: inSUlin ASPART 1 UNIT/0.01 ML (PER UNIT) SC SCH ×4 (06:10→19:52)
[2023-05-08] MEDS: predniSONE 20 MG TAB PO SCH (06:10)
[2023-05-08 06:16] LABS: BASOPHILS % (AUTO) 0 % (0-10); EOSINOPHILS # (AUTO) 0.2 10^3/uL (0.0-0.3); EOSINOPHILS % (AUTO) 2 % (0-10); HEMATOCRIT 23 % (40-54); HEMOGLOBIN 7.1 g/dL (13.3-17.7); LYMPHOCYTES % (AUTO) 10 % (12-44); MEAN CORPUSCULAR HEMOGLOBIN 28 pg (25-34); MEAN CORPUSCULAR HGB CONC 31 g/dL (32-36); MEAN CORPUSCULAR VOLUME 90 fL (80-99); MEAN PLATELET VOLUME 11.4 fL (9.0-12.2); MONOCYTES # (AUTO) 0.8 10^3/uL (0.0-1.0); MONOCYTES % (AUTO) 7 % (0-12); NEUTROPHILS # (AUTO) 8.1 10^3/uL (1.8-7.8); NEUTROPHILS % (AUTO) 80 % (42-75); PLATELET COUNT 168 10^3/uL (130-400); WHITE BLOOD COUNT 10.1 10^3/uL (4.3-11.0)
[2023-05-08] MEDS: TIOTROPIUM INH 4 GM (SPIRIVA Respimat) IH SCH (06:33)
[2023-05-08] MEDS: FLUTICASONE/VILANTEROL 200/25 MCG (7 DOSES) IH SCH (06:33)
[2023-05-08 06:42] LABS: ALBUMIN 2.9 GM/DL (3.2-4.5); BILIRUBIN,TOTAL 0.3 MG/DL (0.1-1.0); CREATININE SERUM 2.53 MG/DL (0.60-1.30); MAGNESIUM 1.5 MG/DL (1.6-2.4); POTASSIUM 3.7 MMOL/L (3.6-5.0); TOTAL PROTEIN 5.4 GM/DL (6.4-8.2)
[2023-05-08 07:39] VITALS: BP 158/68
[2023-05-08] MEDS: FUROSEMIDE INJECTION 40 MG/4 ML VIAL IVP SCH (08:31)
[2023-05-08] MEDS: inSUlin DETERMIR 1 UNIT/0.01 ML (CHARGE PER UNIT) SQ SCH ×2 (08:32→19:52)
[2023-05-08] MEDS: CYANOCOBALAMIN 1,000 MCG TABLET PO SCH (08:32)
[2023-05-08] MEDS: FOLIC ACID 1 MG TAB PO SCH (08:32)
[2023-05-08] MEDS: ASPIRIN enteric coated 81MG TABLET PO SCH (08:33)
[2023-05-08] MEDS: CLOPIDOGREL 75 MG TABLET PO SCH (08:33)
[2023-05-08] MEDS: FLUTICASONE NASAL SPRAY (120 SPRAYS) NS SCH (08:38)
--- NOTE | 2023-05-08 10:10 | Physical Therapy Daily Note ---
PT Daily Note-Current Subjective Patient agrees to therapy. Pain Section J - Health Conditions 1. Rarely or not at all 2. Occasionally 3. Frequently 4. Almost constantly 8. Unable to answer Pain Effect on Sleep: 1 Pain Interference with Therapy: 1 Pain Interference w/Day-to-Day: 1 Mental Status Patient Orientation: Normal For Age Attachments: Oxygen (vapotherm 20L/45%) Transfers SCALE: Activities may be completed with or without assistive devices. 7-Unckgccvvi-oqntmdc completes the activity by him/herself with no assistance from a helper. 5-Set-up or Clean-up Assistance-helper sets up or cleans up; patient completes activity. [place] assists only prior to or following the activity. 4-Supervision or Touching Assistance-helper provides verbal cues and/or touching/steadying and/or contact guard assistance as patient completes activity. Assistance may be provided throughout the activity or intermittently. 3-Partial/Moderate Assistance-helper does LESS THAN HALF the effort. [place] lifts, holds or supports trunk or limbs, but provides less than half the effort. 2-Substantial/Maximal Assistance-helper does MORE THAN HALF the effort. [place] lifts or holds trunk or limbs and provides more than half the effort. 2-Kvpcnbzqq-wshoux does ALL the effort. Patient does none of the effort to complete the activity. Or, the assistance of 2 or more helpers is required for the patient to complete the activity. If activity was not attempted, code reason: 7-Patient Refused. 9-Not Applicable-not attempted and the patient did not perform the activity before the current illness, exacerbation or injury. 10-Not Attempted due to Environmental Limitations-(lack of equipment, weather restraints, etc.). 88-Not Attempted due to Medical Conditions or Safety Concerns. Lying to Sitting/Side of Bed(Q: 3 Sit to Stand (QC): 4 Chair/Xnf-qy-Qtapf Xfer(QC): 4 Weight Bearing Right Lower Extremity: Right Full Weight Bearing Left Lower Extremity: Left Full Weight Bearing Gait Training Distance: 10' Walk 10 feet (QC): 4 Gait Assistive Device: FWW Assessment Patient's SAO2 decreases to 83% on vapotherm with minimal activity and requires several minutes of recovery to 93%. Patient up in recliner with needs met. PT Beauty Sales Advisor Goals Beauty Sales Advisor Goals PT Beauty Sales Advisor Goals Time Frame: May 29, 2023 Roll Left & Right (QC): 6 Sit to Lying (QC): 6 Lying-Sitting on Side/Bed(QC): 6 Sit to Stand (QC): 6 Chair/Vud-tb-Oullc Xfer(QC): 6 Toilet Transfer (QC): 6 Does the Patient Walk: Yes Walk 10 feet (QC): 4 Walk 50ft with 2 Turns (QC): 4 Walk 150 ft (QC): 4 PT Plan Treatment/Plan Treatment Plan: Continue Plan of Care Treatment Plan: Bed Mobility, Education, Functional Activity González, Functional Strength, Group Therapy, Gait, Safety, Therapeutic Exercise, Transfers Treatment Duration: Jun 28, 2023 Frequency: 6 times per week Estimated Hrs Per Day: .25 hour per day Patient and/or Family Agrees t: Yes Time Time In: 912 Time Out: 922 DATE: May 08, 2023 Total Billed Treatment Time: 10 Total Billed Treatment 1 visit FA 10 min YUNG HASSAN PT May 08, 2023 10:10
--- NOTE | 2023-05-08 10:14 | Occupational Ther Daily Note ---
OT Current Status-Daily Note Mental Status/Objective Patient Orientation: Person, Place ([facility]) Attachments: Johnson Catheter, Oxygen (vapo 40/15) ADL-Treatment Therapy Code Descriptions/Definitions Functional [place] Measure: 0=Not Assessed/NA 4=Minimal Assistance 1=Total Assistance 5=Supervision or Setup 2=Maximal Assistance 6=Modified [place] 3=Moderate Assistance 7=Complete IndependenceSCALE: Activities may be completed with or without assistive devices. 9-Onifrrhhmn-tglefbh completes the activity by him/herself with no assistance from a helper. 5-Set-up or Clean-up Assistance-helper sets up or cleans up; patient completes activity. [place] assists only prior to or following the activity. 4-Supervision or Touching Assistance-helper provides verbal cues and/or touching/steadying and/or contact guard assistance as patient completes activity. Assistance may be provided throughout the activity or intermittently. 3-Partial/Moderate Assistance-helper does LESS THAN HALF the effort. [place] lifts, holds or supports trunk or limbs, but provides less than half the effort. 2-Substantial/Maximal Assistance-helper does MORE THAN HALF the effort. [place] lifts or holds trunk or limbs and provides more than half the effort. 8-Pmqdxllaq-qinygs does ALL the effort. Patient does none of the effort to complete the activity. Or, the assistance of 2 or more helpers is required for the patient to complete the activity. If activity was not attempted, code reason: 7-Patient Refused. 9-Not Applicable-not attempted and the patient did not perform the activity before the current illness, exacerbation or injury. 10-Not Attempted due to Environmental Limitations-(lack of equipment, weather restraints, etc.). 88-Not Attempted due to Medical Conditions or Safety Concerns. Eating (QC): 6 (rest periods to eat) Oral Hygiene (QC): 5 Shower/Bathe Self (QC): 7 Upper Body Dressing (QC): 4 Lower Body Dressing (QC): 4 On/Off Footwear: 5 (w/ rest periods) Toileting Hygiene (QC): 4 Toilet Transfer (QC): 4 Education OT Patient Education: Correct positioning, Energy conservation, Modified ADL techniques, Progress toward Goal/Update tx plan, Purpose of tx/functional activities, Reviewed precautions, Rehab process, Safety issues, Transfer techniques, Use of adapted equipment Teaching Recipient: Patient Teaching Methods: Demonstration, Discussion Response to Teaching: Verbalize Understanding, Return Demonstration OT Residential Goals [employer] Farmworker Goals Time Frame: May 16, 2023 Eating (QC): 6 Oral Hygiene (QC): 6 Toileting Hygiene (QC): 6 Shower/Bathe Self (QC): 5 Upper Body Dressing (QC): 6 Lower Body Dressing (QC): 6 On/Off Footwear (QC): 6 1=Demonstrate adherence to instructed precautions during ADL tasks. 2=Patient will verbalize/demonstrate understanding of assistive devices/modifications for ADL. 3=Patient will improve strength/tolerance for activity to enable patient to perform ADL's. OT Education/Plan Problem List/Assessment Assessment: Decreased Activ Tolerance, Decreased UE Strength, Impaired Self- Care Skills Discharge Recommendations Plan/Recommendations: Continue POC Treatment Plan/Plan of Care Treatment,Training & Education: Yes Patient would benefit from OT for education, treatment and training to promote independence in ADL's, mobility, safety and/or upper extremity function for ADL's. Plan of Care: ADL Retraining, Functional Mobility, Group Exercise/Act as Ind, UE Funct Exercise/Act Treatment Duration: May 16, 2023 Frequency: 3 times per week (3-5 TIMES PER WEEK) Estimated Hrs Per Day: .25 hour per day Agreement: Yes Rehab Potential: Fair Time Start Time: 09:32 Stop Time: 09:43 DATE: May 08, 2023 Total Time Billed (hr/min): 11 Billed Treatment Time ADL 11 BETSEY GARCIA OT May 08, 2023 10:14
[2023-05-08 11:18] VITALS: BP 124/63
--- NOTE | 2023-05-08 12:47 | Progress Note - Cardiology ---
Cardiology SOAP Progress Note Subjective: Modest improvement of shortness of breath No palp or cp or syncope No significant improvement in leg swelling No n/v/d No focal weakness Objective: I&O/Vital Signs 05/08/23 05/08/23 05/08/23 05/08/23 01:00 02:13 03:21 06:33 Temp 36.7 Pulse 80 83 Resp 22 B/P (MAP) 137/63 (87) Pulse Ox 97 94 95 O2 Delivery Vapotherm Vapotherm Vapotherm O2 Flow Rate 20.00 40.00 20.00 15.00 FiO2 40 40 05/08/23 05/08/23 05/08/23 05/08/23 07:00 07:39 08:00 10:49 Temp 36.6 Pulse 86 87 Resp 20 B/P (MAP) 158/68 (98) Pulse Ox 93 96 91 O2 Delivery Vapotherm Vapotherm Vapotherm O2 Flow Rate 40.00 15.00 20.00 15.00 FiO2 40 40 05/08/23 05/08/23 11:18 12:16 Temp 36.5 Pulse 90 81 Resp 20 B/P (MAP) 124/63 (83) Pulse Ox 92 O2 Delivery Vapotherm O2 Flow Rate 40.00 20.00 05/08/23 00:00 Intake Total 1340 ml Output Total 3150 ml Balance -1810 ml Weight (Pounds): 225 Weight (Ounces): 0.0 Weight (Calculated Kilograms): 102.970537 Constitutional: AAO x 3, well-developed, well-nourished, other Respiratory: other Cardiovascular: regular rate-rhythm, S1 and S2 Gastrointestional: soft, audible bowel sounds Extremities: other (bilat pitting edema from knees to feet) Neurologic/Psychiatric: other Skin: No rash on exposed areas, No ulcerations on exposed areas Results/Procedures: Labs Laboratory Tests 05/07/23 16:31: Glucometer 297H 05/07/23 20:13: Glucometer 206H 05/08/23 05:25: White Blood Count 10.1, Red Blood Count 2.56L, Hemoglobin 7.1L, Hematocrit 23L, Mean Corpuscular Volume 90, Mean Corpuscular Hemoglobin 28, Mean Corpuscular Hemoglobin Concent 31L, Red Cell Distribution Width 18.6H, Platelet Count 168, Mean Platelet Volume 11.4, Immature Granulocyte % (Auto) 1, Neutrophils (%) (Auto) 80H, Lymphocytes (%) (Auto) 10L, Monocytes (%) (Auto) 7, Eosinophils (%) (Auto) 2, Basophils (%) (Auto) 0, Neutrophils # (Auto) 8.1H, Lymphocytes # (Auto ) 1.0, Monocytes # (Auto) 0.8, Eosinophils # (Auto) 0.2, Basophils # (Auto) 0.0, Immature Granulocyte # (Auto) 0.1, Sodium Level 143, Potassium Level 3.7, Chloride Level 105, Carbon Dioxide Level 27, Anion Gap 11, Blood Urea Nitrogen 71H, Creatinine 2.53H, Estimat Glomerular Filtration Rate 27, BUN/Creatinine Ratio 28, Glucose Level 177H, Calcium Level 8.0L, Corrected Calcium 8.9, Magnesium Level 1.5L, Total Bilirubin 0.3, Aspartate Amino Transf (AST/SGOT) 17, Alanine Aminotransferase (ALT/SGPT) 21, Alkaline Phosphatase 51, Total Protein 5.4L, Albumin 2.9L 05/08/23 05:57: Glucometer 166H 05/08/23 10:37: Glucometer 193H Microbiology 04/30/23 MRSA Screen - Final, Complete MRSA not isolated 04/30/23 Blood Culture - Final, Complete No growth Laboratory Tests 05/07/23 05:12 05/08/23 05:25 A/P: Assessment: Acute on chronic respiratory failure likely multi-factorial d/t acute on chronic exacerbation of COPD due to pneumonia - Echocardiogram of 02-26-[address] Pizarro showed LVEF 55-60% - CT of the chest 04-18-23: 1. Airspace and groundglass opacities in the lungs bilaterally,concerning for infection. Aspiration and an inflammatory process or in the differential as well. Underlying neoplasm is not excluded. Chronic scarring and bullous disease in the right lung apex. Small left and trace right pleural effusions. Ac on chronic diastolic CHF Marked leg edema Hypertension DM - management per medical services. CAD - Cardiac cath of by Dr. Pizarro showed: Moderate disease in the mid right coronary artery with occlusion of the distal right PDA, small artery not amendable to intervention. Patent multiple stents in the proximal and mid LAD and proximal mid circumflex artery with mild to moderate in-stent restenosis and mild to moderate coronary artery disease in the left system nonobstructive disease. Normal left ventricular end-diastolic pressure - medical management advised at that time - continue antiplatelet therapy. Positive troponin (seen at time of last admission and again at time of this admission) - likely type II ME due to acute respiratory failure with hypoxia Reported h/o PAD in previous notes - details unknown Stage IV chronic kidney disease Ex tobaccoism, patient recently quit smoking Left bundle branch block - chronic Anemia - management per medical services Moderate to severe back pain. Plan: * Diuretics as needed and as tolerated. * Med svce managing resp failure and ac exac of COPD due to probable pneumonia * BRAYAN clements recommended for LE swelling * Monitor labs * We recommend blood transfusion. Med svce managing NORBERTO DRIVER MD [facility] May 08, 2023 12:47
[2023-05-08 16:21] VITALS: BP 161/70
[2023-05-08] MEDS: MONTELUKAST 10 MG TABLET PO SCH (17:22)
[2023-05-08] MEDS: TAMSULOSIN 0.4 MG (FLOMAX) CAP PO SCH (17:22)
[2023-05-08 19:38] VITALS: BP 147/64
[2023-05-08 23:10] VITALS: BP 149/69
[2023-05-09] VITALS (8 sets, daily range): BP systolic 130–188; BP diastolic 60–75
[2023-05-09] MEDS: RT-Ipratropium/Albuterol NEB 3 ML VIAL INH SCH ×6 (01:14→22:37)
[2023-05-09] MEDS: inSUlin ASPART 1 UNIT/0.01 ML (PER UNIT) SC SCH ×4 (05:42→21:32)
[2023-05-09 05:55] LABS: BASOPHILS % (AUTO) 0 % (0-10); EOSINOPHILS # (AUTO) 0.1 10^3/uL (0.0-0.3); EOSINOPHILS % (AUTO) 1 % (0-10); HEMATOCRIT 24 % (40-54); HEMOGLOBIN 7.2 g/dL (13.3-17.7); LYMPHOCYTES % (AUTO) 9 % (12-44); MEAN CORPUSCULAR HEMOGLOBIN 27 pg (25-34); MEAN CORPUSCULAR HGB CONC 31 g/dL (32-36); MEAN CORPUSCULAR VOLUME 90 fL (80-99); MEAN PLATELET VOLUME 11.4 fL (9.0-12.2); MONOCYTES # (AUTO) 0.7 10^3/uL (0.0-1.0); MONOCYTES % (AUTO) 7 % (0-12); NEUTROPHILS # (AUTO) 9.1 10^3/uL (1.8-7.8); NEUTROPHILS % (AUTO) 83 % (42-75); PLATELET COUNT 182 10^3/uL (130-400)
[2023-05-09] MEDS: predniSONE 20 MG TAB PO SCH (06:03)
[2023-05-09] MEDS: PANTOPRAZOLE 40 MG (PROTONIX) TAB PO SCH (06:04)
[2023-05-09 06:07] LABS: ALBUMIN 2.9 GM/DL (3.2-4.5); POTASSIUM 3.7 MMOL/L (3.6-5.0)
[2023-05-09 06:08] LABS: CALCIUM 8.2 MG/DL (8.5-10.1)
[2023-05-09 06:09] LABS: TOTAL PROTEIN 5.8 GM/DL (6.4-8.2)
[2023-05-09 06:11] LABS: BILIRUBIN,TOTAL 0.4 MG/DL (0.1-1.0)
[2023-05-09 06:13] LABS: CREATININE SERUM 2.68 MG/DL (0.60-1.30)
[2023-05-09 06:16] LABS: MAGNESIUM 1.6 MG/DL (1.6-2.4)
[2023-05-09] MEDS: TIOTROPIUM INH 4 GM (SPIRIVA Respimat) IH SCH (07:40)
[2023-05-09] MEDS: FLUTICASONE/VILANTEROL 200/25 MCG (7 DOSES) IH SCH (07:40)
[2023-05-09] MEDS: FUROSEMIDE INJECTION 40 MG/4 ML VIAL IVP SCH (09:23)
[2023-05-09] MEDS: inSUlin DETERMIR 1 UNIT/0.01 ML (CHARGE PER UNIT) SQ SCH ×2 (09:24→21:33)
[2023-05-09] MEDS: FLUTICASONE NASAL SPRAY (120 SPRAYS) NS SCH (09:24)
[2023-05-09] MEDS: CLOPIDOGREL 75 MG TABLET PO SCH (09:24)
[2023-05-09] MEDS: CYANOCOBALAMIN 1,000 MCG TABLET PO SCH (09:24)
[2023-05-09] MEDS: ASPIRIN enteric coated 81MG TABLET PO SCH (09:26)
[2023-05-09] MEDS: FOLIC ACID 1 MG TAB PO SCH (09:26)
--- NOTE | 2023-05-09 11:16 | Physical Therapy Daily Note ---
PT Daily Note-Current Subjective Patient agrees to PT. Currently on 5L O2 HF NC. Pain Section J - Health Conditions 1. Rarely or not at all 2. Occasionally 3. Frequently 4. Almost constantly 8. Unable to answer Pain Effect on Sleep: 1 Pain Interference with Therapy: 1 Pain Interference w/Day-to-Day: 1 Mental Status Patient Orientation: Normal For Age Attachments: Oxygen (5L HF NC), Johnson Catheter Transfers SCALE: Activities may be completed with or without assistive devices. 6-Qqiynxtwsc-utchfmv completes the activity by him/herself with no assistance from a helper. 5-Set-up or Clean-up Assistance-helper sets up or cleans up; patient completes activity. [place] assists only prior to or following the activity. 4-Supervision or Touching Assistance-helper provides verbal cues and/or touching/steadying and/or contact guard assistance as patient completes activity. Assistance may be provided throughout the activity or intermittently. 3-Partial/Moderate Assistance-helper does LESS THAN HALF the effort. [place] lifts, holds or supports trunk or limbs, but provides less than half the effort. 2-Substantial/Maximal Assistance-helper does MORE THAN HALF the effort. [place] lifts or holds trunk or limbs and provides more than half the effort. 7-Nsvtczijw-wuqvdo does ALL the effort. Patient does none of the effort to complete the activity. Or, the assistance of 2 or more helpers is required for the patient to complete the activity. If activity was not attempted, code reason: 7-Patient Refused. 9-Not Applicable-not attempted and the patient did not perform the activity before the current illness, exacerbation or injury. 10-Not Attempted due to Environmental Limitations-(lack of equipment, weather restraints, etc.). 88-Not Attempted due to Medical Conditions or Safety Concerns. Lying to Sitting/Side of Bed(Q: 4 Sit to Stand (QC): 3 Chair/Wqr-kk-Ltenq Xfer(QC): 3 Weight Bearing Right Lower Extremity: Right Full Weight Bearing Left Lower Extremity: Left Full Weight Bearing Gait Training Distance: 40' Walk 10 feet (QC): 3 Gait Assistive Device: FWW slightly unsteady due to weakness and increase SOA Assessment PT increased O2 to 6L HF NC with SAO2 decreasing to 77% with minimal activity with quick recovery with O2 on 7L. Decreased O2 to 5L when recovered at 93%. Patient did perform pursed lip breathing to assist in recovery.Nursing notified. PT Care Home Goals Care Home Goals PT Care Home Goals Time Frame: May 29, 2023 Roll Left & Right (QC): 6 Sit to Lying (QC): 6 Lying-Sitting on Side/Bed(QC): 6 Sit to Stand (QC): 6 Chair/Jkq-ap-Quzfw Xfer(QC): 6 Toilet Transfer (QC): 6 Does the Patient Walk: Yes Walk 10 feet (QC): 4 Walk 50ft with 2 Turns (QC): 4 Walk 150 ft (QC): 4 PT Plan Treatment/Plan Treatment Plan: Continue Plan of Care Treatment Plan: Bed Mobility, Education, Functional Activity González, Functional Strength, Group Therapy, Gait, Safety, Therapeutic Exercise, Transfers Treatment Duration: Jun 28, 2023 Frequency: 6 times per week Estimated Hrs Per Day: .25 hour per day Patient and/or Family Agrees t: Yes Time Time In: 1030 Time Out: 1041 DATE: May 09, 2023 Total Billed Treatment Time: 11 Total Billed Treatment 1 visit FA 11 min YUNG HASSAN PT May 09, 2023 11:16
--- NOTE | 2023-05-09 11:28 | Occupational Ther Daily Note ---
OT Current Status-Daily Note Subjective Agreeable to OT, request short distance ambulation w/ 02 Pain Numeric Pain Scale: 7 Location Body Site: Knee Comment: Pain resolves when sitting Mental Status/Objective Patient Orientation: Person, Place, Time, Situation Attachments: Johnson Catheter, Oxygen (5 at rest 6-8 w/ actvity) 02 drop to 73% on 6 liters w/ 5 feet ambulation w/ FWW, 8 liters NC sitting 77%, rest period 1 minutes resolved to 91% ADL-Treatment Therapy Code Descriptions/Definitions Functional [place] Measure: 0=Not Assessed/NA 4=Minimal Assistance 1=Total Assistance 5=Supervision or Setup 2=Maximal Assistance 6=Modified [place] 3=Moderate Assistance 7=Complete IndependenceSCALE: Activities may be completed with or without assistive devices. 9-Danxxlrnkd-dwklzcx completes the activity by him/herself with no assistance from a helper. 5-Set-up or Clean-up Assistance-helper sets up or cleans up; patient completes activity. [place] assists only prior to or following the activity. 4-Supervision or Touching Assistance-helper provides verbal cues and/or touching/steadying and/or contact guard assistance as patient completes activity. Assistance may be provided throughout the activity or intermittently. 3-Partial/Moderate Assistance-helper does LESS THAN HALF the effort. [place] lifts, holds or supports trunk or limbs, but provides less than half the effort. 2-Substantial/Maximal Assistance-helper does MORE THAN HALF the effort. [place] lifts or holds trunk or limbs and provides more than half the effort. 0-Zsklmbvhu-mzkcjl does ALL the effort. Patient does none of the effort to complete the activity. Or, the assistance of 2 or more helpers is required for the patient to complete the activity. If activity was not attempted, code reason: 7-Patient Refused. 9-Not Applicable-not attempted and the patient did not perform the activity before the current illness, exacerbation or injury. 10-Not Attempted due to Environmental Limitations-(lack of equipment, weather restraints, etc.). 88-Not Attempted due to Medical Conditions or Safety Concerns. Eating (QC): 6 Oral Hygiene (QC): 5 Other Treatment Breathing strategies, Patient repeats holding breathe w/ transfer and activity w/ exertion. instructed patietn and PCT to perform 3-5 times sit/stand with nursing hourly Education OT Patient Education: Correct positioning, Energy conservation, Exercise program Teaching Recipient: Patient Teaching Methods: Demonstration, Discussion Response to Teaching: Verbalize Understanding OT Motel Front Desk Clerk Goals Fdc Goals Time Frame: May 16, 2023 Eating (QC): 6 Oral Hygiene (QC): 6 Toileting Hygiene (QC): 6 Shower/Bathe Self (QC): 5 Upper Body Dressing (QC): 6 Lower Body Dressing (QC): 6 On/Off Footwear (QC): 6 1=Demonstrate adherence to instructed precautions during ADL tasks. 2=Patient will verbalize/demonstrate understanding of assistive devices/modifications for ADL. 3=Patient will improve strength/tolerance for activity to enable patient to perform ADL's. OT Education/Plan Problem List/Assessment Assessment: Decreased Activ Tolerance, Decreased UE Strength, Impaired Self- Care Skills Discharge Recommendations Plan/Recommendations: Continue POC Treatment Plan/Plan of Care Treatment,Training & Education: Yes Patient would benefit from OT for education, treatment and training to promote independence in ADL's, mobility, safety and/or upper extremity function for ADL's. Plan of Care: ADL Retraining, Functional Mobility, Group Exercise/Act as Ind, UE Funct Exercise/Act Treatment Duration: May 16, 2023 Frequency: 3 times per week (3-5 TIMES PER WEEK) Estimated Hrs Per Day: .25 hour per day Agreement: Yes Rehab Potential: Fair Time Start Time: 10:30 Stop Time: 10:43 DATE: May 09, 2023 Total Time Billed (hr/min): 13 Billed Treatment Time FA 13 BETSEY GARCIA OT May 09, 2023 11:28
--- NOTE | 2023-05-09 12:22 | Progress Note - Hospitalist ---
Subjective HPI/CC On Admission Date Seen by Provider: May 09, 2023 Time Seen by Provider: 11:00 Shortness of breath Subjective/Events-last exam Patient doing well Off Vapotherm We will discharge to alf on Friday Discontinue catheter Review of Systems Pulmonary: Dyspnea Focused Exam Time of Focused Exam: 18:35 Objective Exam Vital Signs Vital Signs Date Time Temp Pulse Resp B/P (MAP) Pulse Ox O2 Delivery O2 Flow Rate FiO2 05/10/23 04:47 36.1 77 20 147/65 (92) 92 High Flow N/C 5.00 05/08/23 14:34 40 Capillary Refill : General Appearance: No Apparent Distress, WD/WN, Chronically ill Respiratory: Lungs Clear, Normal Breath Sounds Cardiovascular: Regular Rate, Rhythm, No Edema Neurologic/Psychiatric: Alert, Oriented x3, No Motor/Sensory Deficits, Normal Mood/Affect Results/Procedures Lab Laboratory Tests 05/10/23 05:15 Patient resulted labs reviewed. Assessment/Plan Assessment and Plan Assess & Plan/Chief Complaint Assessment: Acute & chronic respiratory failure with hypoxia COPD exacerbation T2DM Anemia BHAVANA Peripheral edema Plan: Wean Vapotherm Continue antibiotics Continue sliding scale insulin Continue furosemide & closely monitor kidney function Monitor closely Needs alf Critical Care Critically Ill Patient MARY MCDUFFIE DO May 09, 2023 12:22
--- NOTE | 2023-05-09 12:36 | Progress Note - Cardiology ---
Cardiology SOAP Progress Note Subjective: Gen weakness No focal weakness Shortness of breath and leg swelling somewhat better No cp or palp or syncope No n/v/d Objective: I&O/Vital Signs 05/09/23 05/09/23 05/09/23 05/09/23 01:00 01:14 03:05 07:00 Temp 36.3 Pulse 80 90 73 Resp 20 B/P (MAP) 130/60 (83) Pulse Ox 93 91 O2 Delivery High Flow N/C High Flow N/C O2 Flow Rate 6.00 5.00 05/09/23 05/09/23 05/09/23 05/09/23 07:42 07:47 08:00 10:57 Temp 36.4 Pulse 79 Resp 19 B/P (MAP) 188/75 (112) Pulse Ox 94 95 95 O2 Delivery High Flow N/C High Flow N/C High Flow N/C High Flow N/C O2 Flow Rate 3.00 5.00 5.00 5.00 05/09/23 11:53 Temp 36.7 Pulse 88 Resp 22 B/P (MAP) 144/62 (89) Pulse Ox 97 O2 Delivery High Flow N/C O2 Flow Rate 5.00 05/09/23 00:00 Intake Total 1655 ml Output Total 2500 ml Balance -845 ml Weight (Pounds): 225 Weight (Ounces): 0.0 Weight (Calculated Kilograms): 102.984192 Constitutional: AAO x 3, well-developed, well-nourished, other Respiratory: other Cardiovascular: regular rate-rhythm, S1 and S2 Gastrointestional: soft, audible bowel sounds Extremities: other (bilat pitting edema from knees to feet) Neurologic/Psychiatric: other Skin: No rash on exposed areas, No ulcerations on exposed areas Results/Procedures: Labs Laboratory Tests 05/08/23 16:25: Glucometer 292H 05/08/23 19:44: Glucometer 280H 05/09/23 05:36: White Blood Count 11.0, Red Blood Count 2.63L, Hemoglobin 7.2L, Hematocrit 24L, Mean Corpuscular Volume 90, Mean Corpuscular Hemoglobin 27, Mean Corpuscular Hemoglobin Concent 31L, Red Cell Distribution Width 18.6H, Platelet Count 182, Mean Platelet Volume 11.4, Immature Granulocyte % (Auto) 0, Neutrophils (%) (Auto) 83H, Lymphocytes (%) (Auto) 9L, Monocytes (%) (Auto) 7, Eosinophils (%) (Auto) 1, Basophils (%) (Auto) 0, Neutrophils # (Auto) 9.1H, Lymphocytes # (Auto) 1.0, Monocytes # (Auto) 0.7, Eosinophils # (Auto) 0.1, Basophils # (Auto) 0.0, Immature Granulocyte # (Auto) 0.0, Sodium Level 145, Potassium Level 3.7, Chloride Level 108H, Carbon Dioxide Level 26, Anion Gap 11, Blood Urea Nitrogen 74H, Creatinine 2.68H, Estimat Glomerular Filtration Rate 25, BUN/Creatinine R atio 28, Glucose Level 136H, Calcium Level 8.2L, Corrected Calcium 9.1, Magnesium Level 1.6, Total Bilirubin 0.4, Aspartate Amino Transf (AST/SGOT) 23, Alanine Aminotransferase (ALT/SGPT) 30, Alkaline Phosphatase 55, Total Protein 5.8L, Albumin 2.9L 05/09/23 05:37: Glucometer 127H 05/09/23 10:46: Glucometer 289H Microbiology 04/30/23 MRSA Screen - Final, Complete MRSA not isolated 04/30/23 Blood Culture - Final, Complete No growth Laboratory Tests 05/08/23 05:25 05/09/23 05:36 A/P: Assessment: Acute on chronic respiratory failure likely multi-factorial d/t acute on chronic exacerbation of COPD due to pneumonia - Echocardiogram of 02-26-[address] Pizarro showed LVEF 55-60% - CT of the chest 04-18-23: 1. Airspace and groundglass opacities in the lungs bilaterally,concerning for infection. Aspiration and an inflammatory process or in the differential as well. Underlying neoplasm is not excluded. Chronic scarring and bullous disease in the right lung apex. Small left and trace right pleural effusions. Ac on chronic diastolic CHF Bilateral leg edema, chronic Hypertension DM - management per medical services. CAD - Cardiac cath of by Dr. Pizarro showed: Moderate disease in the mid right coronary artery with occlusion of the distal right PDA, small artery not amendable to intervention. Patent multiple stents in the proximal and mid LAD and proximal mid circumflex artery with mild to moderate in-stent restenosis and mild to moderate coronary artery disease in the left system nonobstructive disease. Normal left ventricular end-diastolic pressure - medical management advised at that time - continue antiplatelet therapy. Positive troponin (seen at time of last admission and again at time of this admission) - likely type II [place] due to acute respiratory failure with hypoxia Reported h/o PAD in previous notes - details unknown Stage IV chronic kidney disease Ex tobaccoism, patient recently quit smoking Left bundle branch block - chronic Anemia - management per medical services Moderate to severe back pain. Plan: * Diuretics as needed and as tolerated. * Med svce managing resp failure and ac exac of COPD due to probable pneumonia * BRAYAN clements recommended for LE swelling * Monitor labs * We recommend blood transfusion. Med svce managing NORBERTO DRIVER MD FACP FAC CCDS May 09, 2023 12:36
[2023-05-09] MEDS: TAMSULOSIN 0.4 MG (FLOMAX) CAP PO SCH (16:28)
[2023-05-09] MEDS: MONTELUKAST 10 MG TABLET PO SCH (16:28)
[2023-05-10] MEDS: RT-Ipratropium/Albuterol NEB 3 ML VIAL INH SCH ×6 (02:45→21:38)
[2023-05-10 04:47] VITALS: BP 147/65
[2023-05-10] MEDS: PANTOPRAZOLE 40 MG (PROTONIX) TAB PO SCH (05:10)
[2023-05-10] MEDS: inSUlin ASPART 1 UNIT/0.01 ML (PER UNIT) SC SCH ×4 (05:36→20:34)
[2023-05-10 05:57] LABS: BASOPHILS % (AUTO) 0 % (0-10); EOSINOPHILS # (AUTO) 0.2 10^3/uL (0.0-0.3); EOSINOPHILS % (AUTO) 1 % (0-10); HEMATOCRIT 24 % (40-54); HEMOGLOBIN 7.5 g/dL (13.3-17.7); LYMPHOCYTES # (AUTO) 0.9 10^3/uL (1.0-4.0); LYMPHOCYTES % (AUTO) 8 % (12-44); MEAN CORPUSCULAR HEMOGLOBIN 28 pg (25-34); MEAN CORPUSCULAR HGB CONC 31 g/dL (32-36); MEAN CORPUSCULAR VOLUME 91 fL (80-99); MONOCYTES # (AUTO) 0.9 10^3/uL (0.0-1.0); MONOCYTES % (AUTO) 8 % (0-12); NEUTROPHILS # (AUTO) 10.3 10^3/uL (1.8-7.8); NEUTROPHILS % (AUTO) 83 % (42-75); PLATELET COUNT 217 10^3/uL (130-400); WHITE BLOOD COUNT 12.4 10^3/uL (4.3-11.0)
[2023-05-10 06:14] LABS: ALBUMIN 3.1 GM/DL (3.2-4.5); POTASSIUM 3.8 MMOL/L (3.6-5.0)
[2023-05-10 06:15] LABS: CALCIUM 8.5 MG/DL (8.5-10.1)
[2023-05-10 06:16] LABS: TOTAL PROTEIN 6.1 GM/DL (6.4-8.2)
[2023-05-10 06:18] LABS: BILIRUBIN,TOTAL 0.3 MG/DL (0.1-1.0)
[2023-05-10 06:20] LABS: CREATININE SERUM 2.2 MG/DL (0.60-1.30)
[2023-05-10 06:23] LABS: MAGNESIUM 1.7 MG/DL (1.6-2.4)
--- NOTE | 2023-05-10 06:34 | Progress Note - Hospitalist ---
Subjective HPI/CC On Admission Date Seen by Provider: May 10, 2023 Time Seen by Provider: 11:00 Shortness of breath Subjective/Events-last exam Patient doing a little better Required Johnson catheter replacement due to urinary retention Labs reviewed Less short of breath Off Vapotherm for 48 hours now Review of Systems General: Fatigue, Malaise Focused Exam Time of Focused Exam: 18:35 Objective Exam Vital Signs Vital Signs Date Time Temp Pulse Resp B/P (MAP) Pulse Ox O2 Delivery O2 Flow Rate FiO2 05/10/23 16:38 36.6 85 96 05/10/23 14:52 High Flow N/C 5.00 05/10/23 12:00 20 136/76 (96) 05/08/23 14:34 40 Capillary Refill : General Appearance: No Apparent Distress, WD/WN, Chronically ill Respiratory: Lungs Clear, Normal Breath Sounds, Decreased Breath Sounds Cardiovascular: Regular Rate, Rhythm Neurologic/Psychiatric: Alert, Oriented x3, No Motor/Sensory Deficits, Normal Mood/Affect Results/Procedures Lab Laboratory Tests 05/10/23 05:15 Patient resulted labs reviewed. Assessment/Plan Assessment and Plan Assess & Plan/Chief Complaint Assessment: Acute & chronic respiratory failure with hypoxia COPD exacerbation T2DM Anemia BHAVANA Peripheral edema Urinary retention requiring Johnson catheter replacement Plan: DC Vapotherm ror 48 hours now Continue sliding scale insulin Continue furosemide & closely monitor kidney function Monitor closely Needs group home Critical Care Critically Ill Patient MARY MCDUFFIE DO May 10, 2023 06:34
[2023-05-10] MEDS: FLUTICASONE/VILANTEROL 200/25 MCG (7 DOSES) IH SCH (07:28)
[2023-05-10 08:33] VITALS: BP 156/70
[2023-05-10] MEDS: FUROSEMIDE INJECTION 40 MG/4 ML VIAL IVP SCH (09:57)
[2023-05-10] MEDS: FOLIC ACID 1 MG TAB PO SCH (09:58)
[2023-05-10] MEDS: FLUTICASONE NASAL SPRAY (120 SPRAYS) NS SCH (09:58)
[2023-05-10] MEDS: CLOPIDOGREL 75 MG TABLET PO SCH (09:58)
[2023-05-10] MEDS: CYANOCOBALAMIN 1,000 MCG TABLET PO SCH (09:58)
[2023-05-10] MEDS: ASPIRIN enteric coated 81MG TABLET PO SCH (09:58)
[2023-05-10] MEDS: inSUlin DETERMIR 1 UNIT/0.01 ML (CHARGE PER UNIT) SQ SCH ×2 (09:58→20:33)
--- NOTE | 2023-05-10 10:29 | Physical Therapy Daily Note ---
PT Daily Note-Current Subjective Pt. in bed, agrees to ambulate. States he isn't having a good day due to removing the catheter but having to have it replaced. Pain Section J - Health Conditions 1. Rarely or not at all 2. Occasionally 3. Frequently 4. Almost constantly 8. Unable to answer Pain Effect on Sleep: 1 Pain Interference with Therapy: 1 Pain Interference w/Day-to-Day: 1 Mental Status Patient Orientation: Person, Place, Time, Situation Attachments: Oxygen, Johnson Catheter Transfers SCALE: Activities may be completed with or without assistive devices. 8-Oojmusjakx-ukixcna completes the activity by him/herself with no assistance from a helper. 5-Set-up or Clean-up Assistance-helper sets up or cleans up; patient completes activity. [place] assists only prior to or following the activity. 4-Supervision or Touching Assistance-helper provides verbal cues and/or touching/steadying and/or contact guard assistance as patient completes activity. Assistance may be provided throughout the activity or intermittently. 3-Partial/Moderate Assistance-helper does LESS THAN HALF the effort. [place] lifts, holds or supports trunk or limbs, but provides less than half the effort. 2-Substantial/Maximal Assistance-helper does MORE THAN HALF the effort. [place] lifts or holds trunk or limbs and provides more than half the effort. 6-Eqmziakvg-wbilyl does ALL the effort. Patient does none of the effort to complete the activity. Or, the assistance of 2 or more helpers is required for the patient to complete the activity. If activity was not attempted, code reason: 7-Patient Refused. 9-Not Applicable-not attempted and the patient did not perform the activity before the current illness, exacerbation or injury. 10-Not Attempted due to Environmental Limitations-(lack of equipment, weather restraints, etc.). 88-Not Attempted due to Medical Conditions or Safety Concerns. Lying to Sitting/Side of Bed(Q: 4 Sit to Stand (QC): 4 Weight Bearing Right Lower Extremity: Right Full Weight Bearing Left Lower Extremity: Left Full Weight Bearing Gait Training Does the Patient Walk?: Yes Distance: 40 ft Walk 10 feet (QC): 4 Gait Persons Needed: 1 Gait Assistive Device: FWW kyphotic posture and requires a standing rest break due to SOB Assessment Current Status: Fair Progress Pt. fatigues very quickly with ambulation. On 6L O2 patient's O2 sats at 89% in static standing and O2 increased to 8L per patient stating this is what he needs for ambulation. Post ambulation O2 sats at 89% on 8L and patient observably SOB and very fatigued. Pt. returned to supine position and O2 at 5L via NC, all needs met. PT Correction Goals Correction Goals PT Correction Goals Time Frame: May 29, 2023 Roll Left & Right (QC): 6 Sit to Lying (QC): 6 Lying-Sitting on Side/Bed(QC): 6 Sit to Stand (QC): 6 Chair/Yhm-sv-Kcxfg Xfer(QC): 6 Toilet Transfer (QC): 6 Does the Patient Walk: Yes Walk 10 feet (QC): 4 Walk 50ft with 2 Turns (QC): 4 Walk 150 ft (QC): 4 PT Plan Treatment/Plan Treatment Plan: Continue Plan of Care Treatment Plan: Bed Mobility, Education, Functional Activity González, Functional Strength, Group Therapy, Gait, Safety, Therapeutic Exercise, Transfers Treatment Duration: Jun 28, 2023 Frequency: 6 times per week Estimated Hrs Per Day: .25 hour per day Patient and/or Family Agrees t: Yes Time Time In: 914 Time Out: 929 DATE: May 10, 2023 Total Billed Treatment Time: 15 Total Billed Treatment 1, GT 15' KALANI CUEVAS PT May 10, 2023 10:29
[2023-05-10] MEDS: TIOTROPIUM INH 4 GM (SPIRIVA Respimat) IH SCH (10:46)
[2023-05-10 12:00] VITALS: BP 136/76
[2023-05-10 16:00] VITALS: BP 111/51
[2023-05-10 16:38] VITALS: BP 136/76
[2023-05-10] MEDS: MONTELUKAST 10 MG TABLET PO SCH (17:05)
[2023-05-10] MEDS: TAMSULOSIN 0.4 MG (FLOMAX) CAP PO SCH (17:05)
[2023-05-10 20:04] VITALS: BP 137/71
[2023-05-11] VITALS (10 sets, daily range): BP systolic 126–160; BP diastolic 58–86
[2023-05-11] MEDS: RT-Ipratropium/Albuterol NEB 3 ML VIAL INH SCH ×6 (03:33→22:21)
[2023-05-11] MEDS: PANTOPRAZOLE 40 MG (PROTONIX) TAB PO SCH (05:21)
[2023-05-11] MEDS: inSUlin ASPART 1 UNIT/0.01 ML (PER UNIT) SC SCH ×4 (05:21→20:28)
[2023-05-11 05:25] LABS: BASOPHILS % (AUTO) 0 % (0-10); EOSINOPHILS # (AUTO) 0.1 10^3/uL (0.0-0.3); EOSINOPHILS % (AUTO) 1 % (0-10); HEMATOCRIT 22 % (40-54); LYMPHOCYTES # (AUTO) 0.8 10^3/uL (1.0-4.0); LYMPHOCYTES % (AUTO) 8 % (12-44); MEAN CORPUSCULAR HEMOGLOBIN 28 pg (25-34); MEAN CORPUSCULAR HGB CONC 31 g/dL (32-36); MEAN CORPUSCULAR VOLUME 91 fL (80-99); MEAN PLATELET VOLUME 11.4 fL (9.0-12.2); MONOCYTES # (AUTO) 0.8 10^3/uL (0.0-1.0); MONOCYTES % (AUTO) 8 % (0-12); NEUTROPHILS # (AUTO) 8.8 10^3/uL (1.8-7.8); NEUTROPHILS % (AUTO) 83 % (42-75); PLATELET COUNT 197 10^3/uL (130-400); WHITE BLOOD COUNT 10.6 10^3/uL (4.3-11.0)
[2023-05-11 05:31] LABS: HEMOGLOBIN 6.9 g/dL (13.3-17.7)
[2023-05-11 05:39] LABS: ALBUMIN 2.8 GM/DL (3.2-4.5); POTASSIUM 3.8 MMOL/L (3.6-5.0)
[2023-05-11 05:41] LABS: CALCIUM 8.2 MG/DL (8.5-10.1)
[2023-05-11 05:42] LABS: TOTAL PROTEIN 5.7 GM/DL (6.4-8.2)
[2023-05-11 05:43] LABS: BILIRUBIN,TOTAL 0.4 MG/DL (0.1-1.0)
[2023-05-11 05:45] LABS: CREATININE SERUM 2.12 MG/DL (0.60-1.30)
[2023-05-11 05:48] LABS: MAGNESIUM 1.6 MG/DL (1.6-2.4)
--- NOTE | 2023-05-11 07:57 | Progress Note - Hospitalist ---
Subjective HPI/CC On Admission Date Seen by Provider: May 11, 2023 Time Seen by Provider: 11:00 Shortness of breath Subjective/Events-last exam Patient doing about the same Required 1 unit of blood transfusion today Awaiting fci placement tomorrow Review of Systems General: Fatigue, Malaise Pulmonary: Dyspnea Focused Exam Time of Focused Exam: 18:35 Objective Exam Vital Signs Vital Signs Date Time Temp Pulse Resp B/P (MAP) Pulse Ox O2 Delivery O2 Flow Rate FiO2 05/11/23 16:34 36.4 77 19 152/67 (95) 95 High Flow N/C 5.00 05/08/23 14:34 40 Capillary Refill : General Appearance: No Apparent Distress, WD/WN, Chronically ill Respiratory: Lungs Clear, Normal Breath Sounds, Decreased Breath Sounds Cardiovascular: Regular Rate, Rhythm Neurologic/Psychiatric: Alert, Oriented x3, No Motor/Sensory Deficits, Normal Mood/Affect Results/Procedures Lab Laboratory Tests 05/11/23 05:22 Patient resulted labs reviewed. Assessment/Plan Assessment and Plan Assess & Plan/Chief Complaint Assessment: Acute & chronic respiratory failure with hypoxia COPD exacerbation T2DM Anemia BHAVANA Peripheral edema Urinary retention requiring Johnson catheter replacement Plan: DC Vapotherm ror 48 hours now Continue sliding scale insulin Continue furosemide & closely monitor kidney function Monitor closely Needs fci Critical Care Critically Ill Patient MARY MCDUFFIE DO May 11, 2023 07:56
[2023-05-11] MEDS ORDERED: NS IV 500 ML 500 ML IV SCH ×2 (08:00)
[2023-05-11] MEDS: FUROSEMIDE INJECTION 40 MG/4 ML VIAL IVP SCH (09:30)
[2023-05-11] MEDS: ASPIRIN enteric coated 81MG TABLET PO SCH (09:32)
[2023-05-11] MEDS: FOLIC ACID 1 MG TAB PO SCH (09:32)
[2023-05-11] MEDS: CYANOCOBALAMIN 1,000 MCG TABLET PO SCH (09:33)
[2023-05-11] MEDS: CLOPIDOGREL 75 MG TABLET PO SCH (09:33)
[2023-05-11] MEDS: inSUlin DETERMIR 1 UNIT/0.01 ML (CHARGE PER UNIT) SQ SCH ×2 (09:33→20:28)
[2023-05-11] MEDS: FLUTICASONE NASAL SPRAY (120 SPRAYS) NS SCH (09:33)
[2023-05-11] MEDS: FLUTICASONE/VILANTEROL 200/25 MCG (7 DOSES) IH SCH (11:06)
[2023-05-11] MEDS: TIOTROPIUM INH 4 GM (SPIRIVA Respimat) IH SCH (11:07)
[2023-05-11] MEDS: TAMSULOSIN 0.4 MG (FLOMAX) CAP PO SCH (16:54)
[2023-05-11] MEDS: MONTELUKAST 10 MG TABLET PO SCH (16:54)
[2023-05-12] VITALS (7 sets, daily range): BP systolic 123–159; BP diastolic 51–86
[2023-05-12] MEDS: RT-Ipratropium/Albuterol NEB 3 ML VIAL INH SCH ×6 (02:14→21:42)
[2023-05-12] MEDS: inSUlin ASPART 1 UNIT/0.01 ML (PER UNIT) SC SCH ×4 (05:49→21:02)
[2023-05-12] MEDS: PANTOPRAZOLE 40 MG (PROTONIX) TAB PO SCH (05:54)
[2023-05-12 06:00] LABS: BASOPHILS % (AUTO) 0 % (0-10); EOSINOPHILS # (AUTO) 0.1 10^3/uL (0.0-0.3); EOSINOPHILS % (AUTO) 1 % (0-10); HEMATOCRIT 28 % (40-54); HEMOGLOBIN 8.4 g/dL (13.3-17.7); LYMPHOCYTES # (AUTO) 0.6 10^3/uL (1.0-4.0); LYMPHOCYTES % (AUTO) 6 % (12-44); MEAN CORPUSCULAR HGB CONC 31 g/dL (32-36); MEAN CORPUSCULAR VOLUME 90 fL (80-99); MEAN PLATELET VOLUME 11.6 fL (9.0-12.2); MONOCYTES # (AUTO) 0.8 10^3/uL (0.0-1.0); MONOCYTES % (AUTO) 8 % (0-12); NEUTROPHILS # (AUTO) 8.5 10^3/uL (1.8-7.8); NEUTROPHILS % (AUTO) 85 % (42-75); PLATELET COUNT 197 10^3/uL (130-400)
[2023-05-12 06:06] LABS: MEAN CORPUSCULAR HEMOGLOBIN 27 pg (25-34)
[2023-05-12 06:09] LABS: ALBUMIN 2.9 GM/DL (3.2-4.5); POTASSIUM 3.8 MMOL/L (3.6-5.0)
[2023-05-12 06:10] LABS: CALCIUM 8.7 MG/DL (8.5-10.1)
[2023-05-12 06:12] LABS: TOTAL PROTEIN 6.1 GM/DL (6.4-8.2)
[2023-05-12 06:13] LABS: BILIRUBIN,TOTAL 0.5 MG/DL (0.1-1.0)
[2023-05-12 06:15] LABS: CREATININE SERUM 2.36 MG/DL (0.60-1.30)
[2023-05-12 06:18] LABS: MAGNESIUM 1.7 MG/DL (1.6-2.4)
[2023-05-12 06:34] LABS: LYMPHOCYTES % (MANUAL) 5 %; NEUTROPHILS % (MANUAL) 91 %
[2023-05-12 06:35] LABS: ANISOCYTOSIS SLIGHT; HYPOCHROMASIA SLIGHT; MONOCYTES % (MANUAL) 4 %
[2023-05-12] MEDS: FLUTICASONE/VILANTEROL 200/25 MCG (7 DOSES) IH SCH (07:31)
[2023-05-12] MEDS: TIOTROPIUM INH 4 GM (SPIRIVA Respimat) IH SCH (07:31)
[2023-05-12] MEDS: FOLIC ACID 1 MG TAB PO SCH (09:31)
[2023-05-12] MEDS: CYANOCOBALAMIN 1,000 MCG TABLET PO SCH (09:31)
[2023-05-12] MEDS: CLOPIDOGREL 75 MG TABLET PO SCH (09:31)
[2023-05-12] MEDS: ASPIRIN enteric coated 81MG TABLET PO SCH (09:31)
[2023-05-12] MEDS: FUROSEMIDE INJECTION 40 MG/4 ML VIAL IVP SCH (09:32)
[2023-05-12] MEDS: inSUlin DETERMIR 1 UNIT/0.01 ML (CHARGE PER UNIT) SQ SCH ×2 (09:38→21:00)
[2023-05-12] MEDS: FLUTICASONE NASAL SPRAY (120 SPRAYS) NS SCH (09:39)
--- NOTE | 2023-05-12 11:32 | Physical Therapy Daily Note ---
PT Daily Note-Current Subjective Patient agrees to PT. Pain Section J - Health Conditions 1. Rarely or not at all 2. Occasionally 3. Frequently 4. Almost constantly 8. Unable to answer Pain Effect on Sleep: 1 Pain Interference with Therapy: 1 Pain Interference w/Day-to-Day: 1 Transfers SCALE: Activities may be completed with or without assistive devices. 8-Luovherohr-fywclfo completes the activity by him/herself with no assistance from a helper. 5-Set-up or Clean-up Assistance-helper sets up or cleans up; patient completes activity. [place] assists only prior to or following the activity. 4-Supervision or Touching Assistance-helper provides verbal cues and/or touching/steadying and/or contact guard assistance as patient completes activity. Assistance may be provided throughout the activity or intermittently. 3-Partial/Moderate Assistance-helper does LESS THAN HALF the effort. [place] lifts, holds or supports trunk or limbs, but provides less than half the effort. 2-Substantial/Maximal Assistance-helper does MORE THAN HALF the effort. [place] lifts or holds trunk or limbs and provides more than half the effort. 2-Cifhhflnq-uoaiul does ALL the effort. Patient does none of the effort to complete the activity. Or, the assistance of 2 or more helpers is required for the patient to complete the activity. If activity was not attempted, code reason: 7-Patient Refused. 9-Not Applicable-not attempted and the patient did not perform the activity before the current illness, exacerbation or injury. 10-Not Attempted due to Environmental Limitations-(lack of equipment, weather restraints, etc.). 88-Not Attempted due to Medical Conditions or Safety Concerns. Sit to Stand (QC): 4 Chair/Tcd-jf-Wehhd Xfer(QC): 4 Weight Bearing Right Lower Extremity: Right Full Weight Bearing Left Lower Extremity: Left Full Weight Bearing Gait Training Distance: 25' Walk 10 feet (QC): 4 Gait Assistive Device: FWW functional gait sequence Assessment Noted increase SOA with minimal activity. Patient stood to FWW x 4 min before having to sit. PT Assisted Goals Circular Knife Machine Cutter Goals PT Circular Knife Machine Cutter Goals Time Frame: May 29, 2023 Roll Left & Right (QC): 6 Sit to Lying (QC): 6 Lying-Sitting on Side/Bed(QC): 6 Sit to Stand (QC): 6 Chair/Yur-av-Cqizp Xfer(QC): 6 Toilet Transfer (QC): 6 Does the Patient Walk: Yes Walk 10 feet (QC): 4 Walk 50ft with 2 Turns (QC): 4 Walk 150 ft (QC): 4 PT Plan Treatment/Plan Treatment Plan: Continue Plan of Care Treatment Plan: Bed Mobility, Education, Functional Activity González, Functional Strength, Group Therapy, Gait, Safety, Therapeutic Exercise, Transfers Treatment Duration: Jun 28, 2023 Frequency: 6 times per week Estimated Hrs Per Day: .25 hour per day Patient and/or Family Agrees t: Yes Time Time In: 1100 Time Out: 1111 DATE: May 12, 2023 Total Billed Treatment Time: 11 Total Billed Treatment 1 visit FA 11 min YUNG HASASN PT May 12, 2023 11:32
--- NOTE | 2023-05-12 13:56 | Progress Note ---
Subjective Subjective/Events-last exam Pt still quite weak, worried about going to the nursing facility. Was standing in front of chair with PT at time of my arrival, became quite short of breath after walking around bed and standing in front of chair for short period. Focused Exam Time of Focused Exam: 18:35 Objective Exam Last Set of Vital Signs Vital Signs Date Time Temp Pulse Resp B/P (MAP) Pulse Ox O2 Delivery O2 Flow Rate FiO2 05/12/23 12:40 73 05/12/23 11:00 36.3 16 131/55 (80) High Flow N/C 5.00 05/12/23 08:24 97 05/08/23 14:34 40 Capillary Refill : I&O Intake and Output 05/12/23 00:00 Intake Total 2100 ml Output Total 2675 ml Balance -575 ml Intake Oral 2100 ml Output Urine Total 2675 ml # Bowel Movements 3 General: Alert, Mild Distress Lungs: Other (bibasilar rales) Heart: Regular Rate Abdomen: Normal Bowel Sounds, Soft Extremities: No Edema Neuro: Normal Speech Results/Procedures Lab Laboratory Tests 05/11/23 16:51: Glucometer 104 05/11/23 20:14: Glucometer 104 05/11/23 23:46: Glucometer 99 05/12/23 05:40: White Blood Count 10.0, Red Blood Count 3.06L, Hemoglobin 8.4#L, Hematocrit 28L, Mean Corpuscular Volume 90, Mean Corpuscular Hemoglobin 27, Mean Corpuscular Hemoglobin Concent 31L, Red Cell Distribution Width 18.4H, Platelet Count 197, Mean Platelet Volume 11.6, Immature Granulocyte % (Auto) 0, Neutrophils (%) ( Auto) 85H, Lymphocytes (%) (Auto) 6L, Monocytes (%) (Auto) 8, Eosinophils (%) (Auto) 1, Basophils (%) (Auto) 0, Neutrophils # (Auto) 8.5H, Lymphocytes # (Auto) 0.6L, Monocytes # (Auto) 0.8, Eosinophils # (Auto) 0.1, Basophils # (Auto) 0.0, Immature Granulocyte # (Auto) 0.0, Neutrophils % (Manual) 91, Lymphocytes % (Manual) 5, Monocytes % (Manual) 4, Hypochromasia SLIGHT, Anisocytosis SLIGHT, Sodium Level 142, Potassium Level 3.8, Chloride Level 106, Carbon Dioxide Level 24, Anion Gap 12, Blood Urea Nitrogen 63H, Creatinine 2.36H , Estimat Glomerular Filtration Rate 29, BUN/Creatinine Ratio 27, Glucose Level 159H, Calcium Level 8.7, Corrected Calcium 9.6, Magnesium Level 1.7, Total Bilirubin 0.5, Aspartate Amino Transf (AST/SGOT) 19, Alanine Aminotransferase (ALT/SGPT) 29, Alkaline Phosphatase 70, Total Protein 6.1L, Albumin 2.9L 05/12/23 05:41: Glucometer 148H 05/12/23 10:43: Glucometer 286H Microbiology 04/30/23 MRSA Screen - Final, Complete MRSA not isolated 04/30/23 Blood Culture - Final, Complete No growth Radiology NAME: [facility] REC#: [id number] PT STATUS: REG ER : 1950 PHYSICIAN: INDY MONTANEZ DO ADMIT DATE: 04/30/23/ER Signed Date of Exam:04/30/23 CHEST 1 VIEW, AP/PA ONLY EXAMINATION: Chest 1 view. HISTORY: Short of breath. COMPARISON: 04/19/2023. FINDINGS: There are multifocal airspace opacities, right greater than left. No pneumothorax. There is a small right effusion, unchanged. Heart size is normal. IMPRESSION: Multifocal airspace opacities, right greater than left with a small right effusion favored to represent pneumonia. Dictated by: Dictated on workstation # [id number] Dict: 04/30/23 1756 Trans: 04/30/231947 [facility] [id number] Interpreted by: LISA TREVIÑO MD Electronically signed by: LISA TREVIÑO MD 04/30/231947 Assessment/Plan Assessment/Plan (1) Respiratory distress Status: Resolved Assessment & Plan: ADMIT notes: Unknown etiology at this point Unlikely to be secondary to heart failure as patient has relatively normal heart function Unlikely to be edema based on lung exam and chest x-ray results May be secondary to pneumonia elevated D-dimer also concerning for PE, manage per below Continue on BiPAP, wean as tolerated. Baseline oxygen requirement is 4L at home. Concern for malignancy due to patient report of nodules on previous CT scan from January 202305/12- has completed treatment for pneumonia and steroids, on IV lasix still for suspected acute on chronic diastolic CHF, on 5 lpm supplemental oxygen but significant shortness of breath with any activity. Will change to oral lasix. (2) COPD exacerbation Status: Resolved Assessment & Plan: s/p Zosyn and vancomycin and IV steroids. Continued on tiotropium, Breo and Duonebs. Remains on 5 lpm supplemental oxygen (reports 4 lpm at baseline) (3) Hypertension Status: Chronic Assessment & Plan: Held antihypertensives on admit now given normal blood pressure at this time 05/12 resume amlodipine Qualifiers: Qualified Codes: I10 - Essential (primary) hypertension (4) CAD (coronary artery disease) Onset Date: Unknown Status: Chronic Assessment & Plan: Continue home aspirin and statin. Appreciate Cardiology recommendations. 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 Last 24 hour glucose reasonable, continue 15 units BID. (7) Anemia Status: Chronic Assessment & Plan: at baseline at admit, continue to monitor with daily CBC 05/12- s/p one unit PRBCs Qualifiers: Qualified Codes: D64.9 - Anemia, unspecified (8) Hyperkalemia Status: Resolved Assessment & Plan: K 5.5 on admission, will continue to monitor with daily CMP (9) Debility Status: Acute Assessment & Plan: Plan to go to [facility] facility when [facility] TRICIA BHATTI MD May 12, 2023 13:56
--- NOTE | 2023-05-12 15:00 | Occupational Ther Daily Note ---
OT Current Status-Daily Note Subjective UP in recliner, asking to stand, educated patient on requesting to stand w/ nursing staff Pain Numeric Pain Scale: 6 Pain Description: Chronic Mental Status/Objective Patient Orientation: Person, Place, Time, Situation Attachments: Singh Catheter, Oxygen (5 liter NC) ADL-Treatment Therapy Code Descriptions/Definitions Functional [place] Measure: 0=Not Assessed/NA 4=Minimal Assistance 1=Total Assistance 5=Supervision or Setup 2=Maximal Assistance 6=Modified [place] 3=Moderate Assistance 7=Complete IndependenceSCALE: Activities may be completed with or without assistive devices. 0-Vwvrvczgmk-qftaltc completes the activity by him/herself with no assistance from a helper. 5-Set-up or Clean-up Assistance-helper sets up or cleans up; patient completes activity. [place] assists only prior to or following the activity. 4-Supervision or Touching Assistance-helper provides verbal cues and/or touching/steadying and/or contact guard assistance as patient completes activity. Assistance may be provided throughout the activity or intermittently. 3-Partial/Moderate Assistance-helper does LESS THAN HALF the effort. [place] lifts, holds or supports trunk or limbs, but provides less than half the effort. 2-Substantial/Maximal Assistance-helper does MORE THAN HALF the effort. [place] lifts or holds trunk or limbs and provides more than half the effort. 6-Gwyeflqso-szzdwt does ALL the effort. Patient does none of the effort to complete the activity. Or, the assistance of 2 or more helpers is required for the patient to complete the activity. If activity was not attempted, code reason: 7-Patient Refused. 9-Not Applicable-not attempted and the patient did not perform the activity before the current illness, exacerbation or injury. 10-Not Attempted due to Environmental Limitations-(lack of equipment, weather restraints, etc.). 88-Not Attempted due to Medical Conditions or Safety Concerns. Eating (QC): 6 Oral Hygiene (QC): 5 (inconsistent routine) Shower/Bathe Self (QC): 88 (recommend sponge bathing) Upper Body Dressing (QC): 4 Lower Body Dressing (QC): 4 (extra time allowance and rest periods) On/Off Footwear: 5 Toileting Hygiene (QC): 88 (singh, denies need for bowel) Toilet Transfer (QC): 5 Other Treatment sit/stands x3 w/ 2 minutes static standing duration w/ FWW and breathing intervention 02 sustained 88-93 5 liters Education OT Patient Education: Energy conservation, Home exercise program, Progress toward Goal/Update tx plan, Purpose of tx/functional activities, Reviewed pre cautions, Safety issues, Transfer techniques Teaching Recipient: Patient Teaching Methods: Demonstration, Discussion Response to Teaching: Verbalize Understanding, Reinforcement Needed (patient continueally holds breath w/ activity) OT [employer] Information Clerk Goals Custodial Goals Time Frame: May 16, 2023 Eating (QC): 6 Oral Hygiene (QC): 6 Toileting Hygiene (QC): 6 Shower/Bathe Self (QC): 5 Upper Body Dressing (QC): 6 Lower Body Dressing (QC): 6 On/Off Footwear (QC): 6 1=Demonstrate adherence to instructed precautions during ADL tasks. 2=Patient will verbalize/demonstrate understanding of assistive devices/modifications for ADL. 3=Patient will improve strength/tolerance for activity to enable patient to perform ADL's. OT Education/Plan Problem List/Assessment Assessment: Decreased Activ Tolerance, Impaired Self-Care Skills Discharge Recommendations Plan/Recommendations: Continue POC Therapy Discharge Recommendati: Post Acute OT Treatment Plan/Plan of Care Treatment,Training & Education: Yes Patient would benefit from OT for education, treatment and training to promote independence in ADL's, mobility, safety and/or upper extremity function for ADL's. Plan of Care: ADL Retraining, Functional Mobility, Group Exercise/Act as Ind, UE Funct Exercise/Act Treatment Duration: May 16, 2023 Frequency: 3 times per week (3-5 TIMES PER WEEK) Estimated Hrs Per Day: .25 hour per day Agreement: Yes Rehab Potential: Fair Time Start Time: 11:30 Stop Time: 11:50 DATE: May 12, 2023 Total Time Billed (hr/min): 20 Billed Treatment Time EX 20 min BETSEY GARCIA OT May 12, 2023 15:00
[2023-05-12] MEDS: TAMSULOSIN 0.4 MG (FLOMAX) CAP PO SCH (16:38)
[2023-05-12] MEDS: MONTELUKAST 10 MG TABLET PO SCH (16:38)
[2023-05-13] VITALS (7 sets, daily range): BP systolic 126–146; BP diastolic 55–74
[2023-05-13] MEDS: RT-Ipratropium/Albuterol NEB 3 ML VIAL INH SCH ×4 (02:42→18:37)
[2023-05-13 05:49] LABS: HEMATOCRIT 27 % (40-54); HEMOGLOBIN 8.4 g/dL (13.3-17.7); MEAN CORPUSCULAR HEMOGLOBIN 28 pg (25-34); MEAN CORPUSCULAR HGB CONC 32 g/dL (32-36); MEAN CORPUSCULAR VOLUME 89 fL (80-99); MEAN PLATELET VOLUME 11.6 fL (9.0-12.2); PLATELET COUNT 227 10^3/uL (130-400); WHITE BLOOD COUNT 9.3 10^3/uL (4.3-11.0)
[2023-05-13] MEDS: PANTOPRAZOLE 40 MG (PROTONIX) TAB PO SCH (06:03)
[2023-05-13] MEDS: inSUlin ASPART 1 UNIT/0.01 ML (PER UNIT) SC SCH ×4 (06:03→20:23)
[2023-05-13 06:04] LABS: POTASSIUM 3.6 MMOL/L (3.6-5.0)
[2023-05-13 06:06] LABS: CALCIUM 8.8 MG/DL (8.5-10.1)
[2023-05-13 06:07] LABS: TOTAL PROTEIN 6.3 GM/DL (6.4-8.2)
[2023-05-13 06:09] LABS: BILIRUBIN,TOTAL 0.5 MG/DL (0.1-1.0)
[2023-05-13 06:10] LABS: CREATININE SERUM 2.17 MG/DL (0.60-1.30)
[2023-05-13 06:13] LABS: MAGNESIUM 1.7 MG/DL (1.6-2.4)
[2023-05-13] MEDS: TIOTROPIUM INH 4 GM (SPIRIVA Respimat) IH SCH (07:20)
[2023-05-13] MEDS: FLUTICASONE/VILANTEROL 200/25 MCG (7 DOSES) IH SCH (07:20)
[2023-05-13] MEDS: ASPIRIN enteric coated 81MG TABLET PO SCH (08:00)
[2023-05-13] MEDS: CLOPIDOGREL 75 MG TABLET PO SCH (08:00)
[2023-05-13] MEDS: FUROSEMIDE 40 MG TABLET PO SCH (08:00)
[2023-05-13] MEDS: amLODIPine 5 MG TABLET PO SCH (08:00)
[2023-05-13] MEDS: CYANOCOBALAMIN 1,000 MCG TABLET PO SCH (08:00)
[2023-05-13] MEDS: FOLIC ACID 1 MG TAB PO SCH (08:00)
[2023-05-13] MEDS: inSUlin DETERMIR 1 UNIT/0.01 ML (CHARGE PER UNIT) SQ SCH ×2 (08:01→20:39)
[2023-05-13] MEDS: FLUTICASONE NASAL SPRAY (120 SPRAYS) NS SCH (08:01)
--- NOTE | 2023-05-13 11:55 | Physical Therapy Daily Note ---
PT Daily Note-Current Subjective Patient agrees to PT. Pain Section J - Health Conditions 1. Rarely or not at all 2. Occasionally 3. Frequently 4. Almost constantly 8. Unable to answer Pain Effect on Sleep: 1 Pain Interference with Therapy: 1 Pain Interference w/Day-to-Day: 1 Mental Status Patient Orientation: Normal For Age Attachments: Oxygen, Johnson Catheter Transfers SCALE: Activities may be completed with or without assistive devices. 2-Znhrjlomtl-sgcuejh completes the activity by him/herself with no assistance from a helper. 5-Set-up or Clean-up Assistance-helper sets up or cleans up; patient completes activity. [place] assists only prior to or following the activity. 4-Supervision or Touching Assistance-helper provides verbal cues and/or touching/steadying and/or contact guard assistance as patient completes activity. Assistance may be provided throughout the activity or intermittently. 3-Partial/Moderate Assistance-helper does LESS THAN HALF the effort. [place] lifts, holds or supports trunk or limbs, but provides less than half the effort. 2-Substantial/Maximal Assistance-helper does MORE THAN HALF the effort. [place] lifts or holds trunk or limbs and provides more than half the effort. 4-Nykzwdsfm-vmsali does ALL the effort. Patient does none of the effort to complete the activity. Or, the assistance of 2 or more helpers is required for the patient to complete the activity. If activity was not attempted, code reason: 7-Patient Refused. 9-Not Applicable-not attempted and the patient did not perform the activity before the current illness, exacerbation or injury. 10-Not Attempted due to Environmental Limitations-(lack of equipment, weather restraints, etc.). 88-Not Attempted due to Medical Conditions or Safety Concerns. Lying to Sitting/Side of Bed(Q: 6 Sit to Stand (QC): 4 Chair/Gqc-vk-Teflc Xfer(QC): 4 Weight Bearing Right Lower Extremity: Right Full Weight Bearing Left Lower Extremity: Left Full Weight Bearing Gait Training Distance: 25' Walk 10 feet (QC): 4 Gait Assistive Device: FWW functional gait sequence Assessment Patient's SAO2 decreased to 81% on 5L HF NC with quick recovery with pursed lip breathing. Patient up in recliner with needs met. PT Valet Goals Valet Goals PT Valet Goals Time Frame: May 29, 2023 Roll Left & Right (QC): 6 Sit to Lying (QC): 6 Lying-Sitting on Side/Bed(QC): 6 Sit to Stand (QC): 6 Chair/Vdh-dy-Qkytg Xfer(QC): 6 Toilet Transfer (QC): 6 Does the Patient Walk: Yes Walk 10 feet (QC): 4 Walk 50ft with 2 Turns (QC): 4 Walk 150 ft (QC): 4 PT Plan Treatment/Plan Treatment Plan: Continue Plan of Care Treatment Plan: Bed Mobility, Education, Functional Activity González, Functional Strength, Group Therapy, Gait, Safety, Therapeutic Exercise, Transfers Treatment Duration: Jun 28, 2023 Frequency: 6 times per week Estimated Hrs Per Day: .25 hour per day Patient and/or Family Agrees t: Yes Time Time In: 1122 Time Out: 1132 DATE: May 13, 2023 Total Billed Treatment Time: 10 Total Billed Treatment 1 visit FA 10 min YUNG HASSAN PT May 13, 2023 11:55
--- NOTE | 2023-05-13 12:51 | Progress Note ---
Subjective Subjective/Events-last exam Pt lying in bed, states he feels about the same. Took a shower today and says it went okay but that his oxygen dropped significantly. Focused Exam Time of Focused Exam: 18:35 Objective Exam Last Set of Vital Signs Vital Signs Date Time Temp Pulse Resp B/P (MAP) Pulse Ox O2 Delivery O2 Flow Rate FiO2 05/13/23 12:36 82 05/13/23 11:18 36.5 18 135/62 (86) 94 High Flow N/C 5.00 05/08/23 14:34 40 Capillary Refill : I&O Intake and Output 05/12/23 23:59 Intake Total 1055 ml Output Total 2400 ml Balance -1345 ml Intake Oral 1055 ml Output Urine Total 2400 ml General: Alert, No Acute Distress Lungs: Clear to Auscultation Heart: Regular Rate Abdomen: Normal Bowel Sounds, Soft Extremities: Other (trace edema) Neuro: Normal Speech Psych/Mental Status: Mood NL Results/Procedures Lab Laboratory Tests 05/12/23 15:39: Glucometer 132H 05/12/23 20:01: Glucometer 123H 05/13/23 05:13: White Blood Count 9.3, Red Blood Count 3.00L, Hemoglobin 8.4L, Hematocrit 27L, Mean Corpuscular Volume 89, Mean Corpuscular Hemoglobin 28, Mean Corpuscular Hemoglobin Concent 32, Red Cell Distribution Width 18.5H, Platelet Count 227, Mean Platelet Volume 11.6, Sodium Level 143, Potassium Level 3.6, Chloride Level 106, Carbon Dioxide Level 26, Anion Gap 11, Blood Urea Nitrogen 59H, Creatinine 2.17H, Estimat Glomerular Filtration Rate 32, BUN/Creatinine Ratio 27, Glucose Level 92, Calcium Level 8.8, Corrected Calcium 9.6, Magnesium Level 1.7, Total Bilirubin 0.5, Aspartate Amino Transf (AST/SGOT) 17, Alanine Aminotransferase (ALT/SGPT) 24, Alkaline Phosphatase 75, Total Protein 6.3L, Albumin 3.0L 05/13/23 05:15: Glucometer 93 05/13/23 10:35: Glucometer 170H Microbiology 04/30/23 MRSA Screen - Final, Complete MRSA not isolated 04/30/23 Blood Culture - Final, Complete No growth Radiology [facility]: [facility] REC#: [id number] PT STATUS: REG ER : 1950 PHYSICIAN: INDY MONTANEZ DO ADMIT DATE: 04/30/23/ER Signed Date of Exam:04/30/23 CHEST 1 VIEW, AP/PA ONLY EXAMINATION: Chest 1 view. HISTORY: Short of breath. COMPARISON: 04/19/2023. FINDINGS: There are multifocal airspace opacities, right greater than left. No pneumothorax. There is a small right effusion, unchanged. Heart size is normal. IMPRESSION: Multifocal airspace opacities, right greater than left with a small right effusion favored to represent pneumonia. Dictated by: Dictated on workstation # [id number] Dict: 04/30/23 1756 Trans: 04/30/231947 [facility] [id number] Interpreted by: LISA TREVIÑO MD Electronically signed by: LISA TREVIÑO MD 04/30/231947 Assessment/Plan Assessment/Plan (1) Respiratory distress Status: Resolved Assessment & Plan: ADMIT notes: Unknown etiology at this point Unlikely to be secondary to heart failure as patient has relatively normal heart function Unlikely to be edema based on lung exam and chest x-ray results May be secondary to pneumonia elevated D-dimer also concerning for PE, manage per below Continue on BiPAP, wean as tolerated. Baseline oxygen requirement is 4L at home. Concern for malignancy due to patient report of nodules on previous CT scan from January 202305/12- has completed treatment for pneumonia and steroids, on IV lasix still for suspected acute on chronic diastolic CHF, on 5 lpm supplemental oxygen but significant shortness of breath with any activity. Will change to oral lasix. 05/13- continues to require higher than previous baseline supplemental oxygen and drops markedly with activity, will repeat CT. (2) COPD exacerbation Status: Resolved Assessment & Plan: s/p Zosyn and vancomycin and IV steroids. Continued on tiotropium, Breo and Duonebs. Remains on 5 lpm supplemental oxygen (reports 4 lpm at baseline) (3) Hypertension Status: Chronic Assessment & Plan: Held antihypertensives on admit now given normal blood pressure at this time 05/12 resume amlodipine Qualifiers: Qualified Codes: I10 - Essential (primary) hypertension (4) CAD (coronary artery disease) Onset Date: Unknown Status: Chronic Assessment & Plan: Continue home aspirin and statin. Appreciate Cardiology recommendations. 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 Last 24 hour glucose reasonable, continue 15 units BID. (7) Anemia Status: Chronic Assessment & Plan: at baseline at admit, continue to monitor with daily CBC 05/12- s/p one unit PRBCs Qualifiers: Qualified Codes: D64.9 - Anemia, unspecified (8) Hyperkalemia Status: Resolved Assessment & Plan: K 5.5 on admission, will continue to monitor with daily labs (9) Debility Status: Acute Assessment & Plan: Plan to go to longterm facility when stable (10) DVT prophylaxis Status: Acute Assessment & Plan: Heparin due to CKD (11) Discharge planning issues Status: Acute Assessment & Plan: 05/13 discussed current condition with via telephone for > 15 minutes. Given he has already completd steroids, antibiotics and remains on diuretics, uncertain why he continues to have such hypoxia with activity. Discused challenge with his CHF, COPD and CKD, and she notes he has had significant breathing issues for years, but worse in last several months, unclear if this may be a new baseline for him. She is concerned he is not moving around enough and that he is getting down. Will repeat CT today and possible d/c to SNF tomorrow. TRICIA BHATTI MD May 13, 2023 12:50
[2023-05-13] MEDS: TAMSULOSIN 0.4 MG (FLOMAX) CAP PO SCH (17:02)
[2023-05-13] MEDS: MONTELUKAST 10 MG TABLET PO SCH (17:03)
--- NOTE | 2023-05-13 17:17 | Diagnostic Imaging Report ---
EXAMINATION: CT chest without contrast. TECHNIQUE: Multiple contiguous axial images were obtained through the chest without the use of intravenous contrast. All CT scans use one or more of the following dose optimizing techniques: automated exposure control, MA and/or KvP adjustment based on patient size and exam type or iterative reconstruction. HISTORY: Persistent hypoxia. COMPARISON: 05/01/2023. FINDINGS: The heart size is prominent. No pericardial effusion is present. There is calcified aortic and coronary atherosclerotic plaque without aneurysm. Lymphadenopathy is seen in the mediastinum. Increasing consolidative opacities are seen throughout the right middle and lower lobes. Stable cystic area is seen in the right lung apex. Stable left-sided pleural effusion. There are increasing opacities in the lingula. The osseous structures demonstrate no acute abnormalities. Limited views of the upper abdominal structures demonstrate no acute abnormalities. Layering gallstones are seen within the gallbladder lumen. Both adrenal glands are unremarkable. IMPRESSION: 1. Worsening pneumonia in the right middle and lower lobes and lingula. 2. Stable left-sided pleural effusion. 3. Persistent cardiomegaly. 4. Cholelithiasis without CT evidence of acute cholecystitis. Dictated by: Dictated on workstation # [id number]
[2023-05-13] MEDS ORDERED: RT-Ipratropium/Albuterol NEB 3 ML VIAL INH SCH (19:15)
[2023-05-13] MEDS: CEFEPIME 1,000 MG/NS 50 ML IVPB IV SCH ×2 (22:03)
[2023-05-14 03:27] VITALS: BP 147/63
[2023-05-14] MEDS: CEFEPIME 1,000 MG/NS 50 ML IVPB IV SCH ×6 (06:01→21:14)
[2023-05-14] MEDS: PANTOPRAZOLE 40 MG (PROTONIX) TAB PO SCH (06:01)
[2023-05-14] MEDS: inSUlin ASPART 1 UNIT/0.01 ML (PER UNIT) SC SCH ×4 (06:01→21:14)
[2023-05-14] MEDS: TIOTROPIUM INH 4 GM (SPIRIVA Respimat) IH SCH (07:42)
[2023-05-14] MEDS: FLUTICASONE/VILANTEROL 200/25 MCG (7 DOSES) IH SCH (07:42)
[2023-05-14 07:59] VITALS: BP 174/74
[2023-05-14 08:24] LABS: BASOPHILS % (AUTO) 0 % (0-10); EOSINOPHILS # (AUTO) 0.1 10^3/uL (0.0-0.3); EOSINOPHILS % (AUTO) 2 % (0-10); HEMATOCRIT 27 % (40-54); HEMOGLOBIN 8.2 g/dL (13.3-17.7); LYMPHOCYTES # (AUTO) 0.6 10^3/uL (1.0-4.0); LYMPHOCYTES % (AUTO) 8 % (12-44); MEAN CORPUSCULAR HEMOGLOBIN 28 pg (25-34); MEAN CORPUSCULAR HGB CONC 31 g/dL (32-36); MEAN CORPUSCULAR VOLUME 91 fL (80-99); MEAN PLATELET VOLUME 11.7 fL (9.0-12.2); MONOCYTES # (AUTO) 0.8 10^3/uL (0.0-1.0); MONOCYTES % (AUTO) 10 % (0-12); NEUTROPHILS # (AUTO) 6.2 10^3/uL (1.8-7.8); NEUTROPHILS % (AUTO) 79 % (42-75); PLATELET COUNT 247 10^3/uL (130-400); WHITE BLOOD COUNT 7.8 10^3/uL (4.3-11.0)
[2023-05-14] MEDS: CYANOCOBALAMIN 1,000 MCG TABLET PO SCH (08:40)
[2023-05-14] MEDS: FOLIC ACID 1 MG TAB PO SCH (08:40)
[2023-05-14] MEDS: CLOPIDOGREL 75 MG TABLET PO SCH (08:40)
[2023-05-14] MEDS: amLODIPine 5 MG TABLET PO SCH (08:40)
[2023-05-14] MEDS: FUROSEMIDE 40 MG TABLET PO SCH ×2 (08:40→21:14)
[2023-05-14] MEDS: ASPIRIN enteric coated 81MG TABLET PO SCH (08:40)
[2023-05-14] MEDS: FLUTICASONE NASAL SPRAY (120 SPRAYS) NS SCH (08:41)
[2023-05-14] MEDS: inSUlin DETERMIR 1 UNIT/0.01 ML (CHARGE PER UNIT) SQ SCH ×2 (08:41→21:14)
[2023-05-14 08:42] LABS: ALBUMIN 2.9 GM/DL (3.2-4.5); BILIRUBIN,TOTAL 0.5 MG/DL (0.1-1.0); CALCIUM 8.6 MG/DL (8.5-10.1); CREATININE SERUM 2.12 MG/DL (0.60-1.30); POTASSIUM 3.9 MMOL/L (3.6-5.0); TOTAL PROTEIN 5.9 GM/DL (6.4-8.2)
[2023-05-14] MEDS ORDERED: CEFEPIME INJECTION 2,000 MG in NS (IVPB) 50 ML 50 ML IV SCH (09:00)
--- NOTE | 2023-05-14 09:47 | Progress Note ---
Subjective Subjective/Events-last exam Feeling okay at rest, states when he gets up he watches the monitor and sits down to rest when he gets down to 84%. CT showed worsening infiltrate yesterday. He does admit to feeling down, states he has usually been an upbeat person. He feels frustrated at his younger self and feels he is now seeing consequences of bad decisions long ago. He is worried about not getting better and leaving his of 34 years. Focused Exam Time of Focused Exam: 18:35 Objective Exam Last Set of Vital Signs Vital Signs Date Time Temp Pulse Resp B/P (MAP) Pulse Ox O2 Delivery O2 Flow Rate FiO2 05/14/23 07:59 36.5 79 18 174/74 (107) High Flow N/C 5.00 05/14/23 07:42 96 05/08/23 14:34 40 Capillary Refill : I&O Intake and Output 05/14/23 00:00 Intake Total 1870 ml Output Total 1825 ml Balance 45 ml Intake Oral 1820 ml IV Total 50 ml Output Urine Total 1825 ml General: Alert, No Acute Distress Lungs: Other (ronchi) Heart: Regular Rate Extremities: Other (1+ pitting edema) Neuro: Normal Speech Psych/Mental Status: Mental Status NL Results/Procedures Lab Laboratory Tests 05/13/23 10:35: Glucometer 170H 05/13/23 15:12: Glucometer 87 05/13/23 20:14: Glucometer 154H 05/14/23 05:25: White Blood Count 7.8, Red Blood Count 2.95L, Hemoglobin 8.2L, Hematocrit 27L, Mean Corpuscular Volume 91, Mean Corpuscular Hemoglobin 28, Mean Corpuscular Hemoglobin Concent 31L, Red Cell Distribution Width 18.4H, Platelet Count 247, Mean Platelet Volume 11.7, Immature Granulocyte % (Auto) 0, Neutrophils (%) (Aut o) 79H, Lymphocytes (%) (Auto) 8L, Monocytes (%) (Auto) 10, Eosinophils (%) (Auto) 2, Basophils (%) (Auto) 0, Neutrophils # (Auto) 6.2, Lymphocytes # (Auto) 0.6L, Monocytes # (Auto) 0.8, Eosinophils # (Auto) 0.1, Basophils # (Auto) 0.0, Immature Granulocyte # (Auto) 0.0, Sodium Level 143, Potassium Level 3.9, Chloride Level 106, Carbon Dioxide Level 26, Anion Gap 11, Blood Urea Nitrogen 57H, Creatinine 2.12H, Estimat Glomerular Filtration Rate 33, BUN/Creatinine Ratio 27, Glucose Level 118H, Calcium Level 8.6, Corrected Calcium 9.5, Total Bilirubin 0.5, Aspartate Amino Transf (AST/SGOT) 21, Alanine Aminotransferase (ALT/SGPT) 25, Alkaline Phosphatase 69, Total Protein 5.9L, Albumin 2.9L 05/14/23 05:35: Magnesium Level 1.7 05/14/23 05:58: Glucometer 94 Microbiology 04/30/23 MRSA Screen - Final, Complete MRSA not isolated 04/30/23 Blood Culture - Final, Complete No growth Radiology NAME: VINCENT JASSO [facility] REC#: [id number] PT STATUS: REG ER : 1950 PHYSICIAN: INDY MONTANEZ DO ADMIT DATE: 04/30/23/ER Signed Date of Exam:04/30/23 CHEST 1 VIEW, AP/PA ONLY EXAMINATION: Chest 1 view. HISTORY: Short of breath. COMPARISON: 04/19/2023. FINDINGS: There are multifocal airspace opacities, right greater than left. No pneumothorax. There is a small right effusion, unchanged. Heart size is normal. IMPRESSION: Multifocal airspace opacities, right greater than left with a small right effusion favored to represent pneumonia. Dictated by: Dictated on workstation # [id number] Dict: 04/30/23 1756 Trans: 04/30/231947 [facility] [id number] Interpreted by: LISA TREVIÑO MD Electronically signed by: LISA TREVIÑO MD 04/30/231947 Assessment/Plan Assessment/Plan (1) Respiratory distress Status: Resolved Assessment & Plan: ADMIT notes: Unknown etiology at this point Unlikely to be secondary to heart failure as patient has relatively normal heart function Unlikely to be edema based on lung exam and chest x-ray results May be secondary to pneumonia elevated D-dimer Continue on BiPAP, wean as tolerated. Baseline oxygen requirement is 4L at home. Concern for malignancy due to patient report of nodules on previous CT scan from January 202305/12- has completed treatment for pneumonia and steroids, on IV lasix still for suspected acute on chronic diastolic CHF, on 5 lpm supplemental oxygen but significant shortness of breath with any activity. Will change to oral lasix. 05/13- continues to require higher than previous baseline supplemental oxygen and drops markedly with activity, will repeat CT. 05/14- repeat CT with worsening infiltrate, no mass noted, given he had 5 days of antibiotic, will resume with cefepime, possibly inadequate length of treatment. Increase oral lasix to BID with persistent edema and persistent challenges with oxygenation with activity. (2) COPD exacerbation Status: Resolved Assessment & Plan: s/p Zosyn and vancomycin and IV steroids. Continued on tiotropium, Breo and Duonebs. Remains on 5 lpm supplemental oxygen (reports 4 lpm at baseline) (3) Hypertension Status: Chronic Assessment & Plan: Held antihypertensives on admit now given normal blood pressure at this time 05/12 resume amlodipine Qualifiers: Qualified Codes: I10 - Essential (primary) hypertension (4) CAD (coronary artery disease) Onset Date: Unknown Status: Chronic Assessment & Plan: Continue home aspirin and statin. Appreciate Cardiology recommendations. 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 Last 24 hour glucose reasonable, continue 15 units BID. (7) Anemia Status: Chronic Assessment & Plan: at baseline at admit, continue to monitor with daily CBC 05/12- s/p one unit PRBCs Qualifiers: Qualified Codes: D64.9 - Anemia, unspecified (8) Hyperkalemia Status: Resolved Assessment & Plan: K 5.5 on admission, will continue to monitor with daily labs (9) Debility Status: Acute Assessment & Plan: Plan to go to care home facility when stable (10) DVT prophylaxis Status: Acute Assessment & Plan: Heparin due to CKD (11) Discharge planning issues Status: Acute Assessment & Plan: 05/13 discussed current condition with via telephone for > 15 minutes. Given he has already completed steroids, antibiotics and remains on diuretics, uncertain why he continues to have such hypoxia with activity. Discused challenge with his CHF, COPD and CKD, and she notes he has had significant breathing issues for years, but worse in last several months, unclear if this may be a new baseline for him. She is concerned he is not moving around enough and that he is getting down. Will repeat CT today and possible d/c to SNF tomorrow. 05/14 discussed goals of care and planning with patient this morning, including the concern that with his multiple comorbidities he may be at a "new normal", discussed that if he chose to pursue comfort goals at some point, that he would be a reasonable candidate for that given his multiple end stage diseases. He expresses understanding and consideration, but wants to continue with aggressive care with curative goals at this time. Called and spoke with his as well and updated her on our conversation and the changes today. TRICIA BHATTI MD May 14, 2023 09:47
[2023-05-14 11:31] VITALS: BP 178/77
[2023-05-14] MEDS ORDERED: HYPOCHLOROUS ACID/NaCl (VASHE) 250 ML IR PRN (13:45)
[2023-05-14] MEDS ORDERED: RT-Ipratropium/Albuterol NEB 3 ML VIAL ONE (14:11)
[2023-05-14] MEDS: RT-Ipratropium/Albuterol NEB 3 ML VIAL INH SCH ×2 (14:18→19:50)
--- NOTE | 2023-05-14 15:23 | Physical Therapy Daily Note ---
PT Daily Note-Current Subjective Patient sitting in chair upon PT arrival, agreeable to treatment. Patient rates pain at 0/10. Pain Section J - Health Conditions 1. Rarely or not at all 2. Occasionally 3. Frequently 4. Almost constantly 8. Unable to answer Pain Effect on Sleep: 1 Pain Interference with Therapy: 1 Pain Interference w/Day-to-Day: 1 Mental Status Patient Orientation: Person Transfers SCALE: Activities may be completed with or without assistive devices. 1-Dprtxnokpf-mghtwhr completes the activity by him/herself with no assistance from a helper. 5-Set-up or Clean-up Assistance-helper sets up or cleans up; patient completes activity. [place] assists only prior to or following the activity. 4-Supervision or Touching Assistance-helper provides verbal cues and/or touching/steadying and/or contact guard assistance as patient completes activity. Assistance may be provided throughout the activity or intermittently. 3-Partial/Moderate Assistance-helper does LESS THAN HALF the effort. [place] lifts, holds or supports trunk or limbs, but provides less than half the effort. 2-Substantial/Maximal Assistance-helper does MORE THAN HALF the effort. [place] lifts or holds trunk or limbs and provides more than half the effort. 2-Emekdziwz-dabwqz does ALL the effort. Patient does none of the effort to complete the activity. Or, the assistance of 2 or more helpers is required for the patient to complete the activity. If activity was not attempted, code reason: 7-Patient Refused. 9-Not Applicable-not attempted and the patient did not perform the activity before the current illness, exacerbation or injury. 10-Not Attempted due to Environmental Limitations-(lack of equipment, weather restraints, etc.). 88-Not Attempted due to Medical Conditions or Safety Concerns. Sit to Stand (QC): 4 Chair/Pkh-fq-Xemuy Xfer(QC): 4 Weight Bearing Right Lower Extremity: Right Full Weight Bearing Left Lower Extremity: Left Full Weight Bearing Gait Training Does the Patient Walk?: Yes Distance: 60' x 2 Walk 10 feet (QC): 4 Walk 50 ft with 2 Turns(QC): 4 Gait Assistive Device: FWW Assessment Current Status: Poor Progress Patient tolerated treatment fair. Patient ambulates 60 feet x 2 with 4WW, with CGA and verbal cues for safety, progression, balance and posture. Patient in chair post treatment with all needs met, nursing notified, call light in reach. PT Shelter Goals Atomic Spectroscopist Goals PT Atomic Spectroscopist Goals Time Frame: May 29, 2023 Roll Left & Right (QC): 6 Sit to Lying (QC): 6 Lying-Sitting on Side/Bed(QC): 6 Sit to Stand (QC): 6 Chair/Drj-uv-Efrup Xfer(QC): 6 Toilet Transfer (QC): 6 Does the Patient Walk: Yes Walk 10 feet (QC): 4 Walk 50ft with 2 Turns (QC): 4 Walk 150 ft (QC): 4 PT Plan Treatment/Plan Treatment Plan: Continue Plan of Care Treatment Plan: Bed Mobility, Education, Functional Activity González, Functional Strength, Group Therapy, Gait, Safety, Therapeutic Exercise, Transfers Treatment Duration: Jun 28, 2023 Frequency: 6 times per week Estimated Hrs Per Day: .25 hour per day Patient and/or Family Agrees t: Yes Safety Risks/Education Patient Education: Gait Training, Transfer Techniques Time Time In: 1507 Time Out: 1523 DATE: May 14, 2023 Total Billed Treatment Time: 16 Total Billed Treatment Visit, LISA JIANG PT May 14, 2023 15:23
[2023-05-14 15:31] VITALS: BP 137/61
[2023-05-14] MEDS: TAMSULOSIN 0.4 MG (FLOMAX) CAP PO SCH (18:10)
[2023-05-14] MEDS: MONTELUKAST 10 MG TABLET PO SCH (18:10)
[2023-05-14 19:24] VITALS: BP 132/62
[2023-05-14 23:04] VITALS: BP 136/58
[2023-05-15 03:02] VITALS: BP 162/67
[2023-05-15 05:39] LABS: HEMATOCRIT 26 % (40-54); MEAN CORPUSCULAR HEMOGLOBIN 28 pg (25-34); MEAN CORPUSCULAR HGB CONC 31 g/dL (32-36); MEAN CORPUSCULAR VOLUME 90 fL (80-99); MEAN PLATELET VOLUME 10.8 fL (9.0-12.2); PLATELET COUNT 241 10^3/uL (130-400); WHITE BLOOD COUNT 7.9 10^3/uL (4.3-11.0)
[2023-05-15 05:49] LABS: ALBUMIN 2.7 GM/DL (3.2-4.5); POTASSIUM 3.7 MMOL/L (3.6-5.0)
[2023-05-15 05:50] LABS: CALCIUM 8.6 MG/DL (8.5-10.1)
[2023-05-15 05:52] LABS: TOTAL PROTEIN 5.9 GM/DL (6.4-8.2)
[2023-05-15 05:53] LABS: BILIRUBIN,TOTAL 0.4 MG/DL (0.1-1.0)
[2023-05-15] MEDS: inSUlin ASPART 1 UNIT/0.01 ML (PER UNIT) SC SCH ×4 (05:54→21:03)
[2023-05-15 05:55] LABS: CREATININE SERUM 1.96 MG/DL (0.60-1.30)
[2023-05-15] MEDS: PANTOPRAZOLE 40 MG (PROTONIX) TAB PO SCH (06:01)
[2023-05-15] MEDS: CEFEPIME 1,000 MG/NS 50 ML IVPB IV SCH ×6 (06:01→21:05)
[2023-05-15] MEDS: RT-Ipratropium/Albuterol NEB 3 ML VIAL INH SCH ×4 (07:09→18:33)
[2023-05-15] MEDS: TIOTROPIUM INH 4 GM (SPIRIVA Respimat) IH SCH (07:09)
[2023-05-15] MEDS: FLUTICASONE/VILANTEROL 200/25 MCG (7 DOSES) IH SCH (07:10)
[2023-05-15 07:46] VITALS: BP 138/63
[2023-05-15] MEDS: inSUlin DETERMIR 1 UNIT/0.01 ML (CHARGE PER UNIT) SQ SCH ×2 (08:49→21:04)
[2023-05-15] MEDS: amLODIPine 5 MG TABLET PO SCH (08:49)
[2023-05-15] MEDS: FOLIC ACID 1 MG TAB PO SCH (08:49)
[2023-05-15] MEDS: FUROSEMIDE 40 MG TABLET PO SCH ×2 (08:49→21:03)
[2023-05-15] MEDS: ASPIRIN enteric coated 81MG TABLET PO SCH (08:49)
[2023-05-15] MEDS: CYANOCOBALAMIN 1,000 MCG TABLET PO SCH (08:49)
[2023-05-15] MEDS: CLOPIDOGREL 75 MG TABLET PO SCH (08:49)
[2023-05-15] MEDS: FLUTICASONE NASAL SPRAY (120 SPRAYS) NS SCH (08:50)
--- NOTE | 2023-05-15 09:15 | Progress Note ---
Subjective Subjective/Events-last exam Pt states that he is feeling about the same. He says he dropped to the 80s when he got up and felt quite short of breath. A friend told him about a COPD medication that he is wondering if will help him breathe better- he has the name written down- Ketty. Focused Exam Time of Focused Exam: 18:35 Objective Exam Last Set of Vital Signs Vital Signs Date Time Temp Pulse Resp B/P (MAP) Pulse Ox O2 Delivery O2 Flow Rate FiO2 05/15/23 07:46 36.6 68 16 138/63 (88) 93 High Flow N/C 05/15/23 07:10 5.00 Capillary Refill : I&O Intake and Output 05/15/23 00:00 Intake Total 1720 ml Output Total 1975 ml Balance -255 ml Intake Oral 1570 ml IV Total 150 ml Output Urine Total 1975 ml # Bowel Movements 1 General: Alert, No Acute Distress Lungs: Other (end expiratory wheeze right base) Heart: Regular Rate, No Murmurs Abdomen: Normal Bowel Sounds, Soft Extremities: Other (2+ pitting edema to just below knee) Psych/Mental Status: Mood NL Results/Procedures Lab Laboratory Tests 05/14/23 10:36: Glucometer 132H 05/14/23 15:35: Glucometer 95 05/14/23 19:47: Glucometer 215H 05/15/23 05:24: White Blood Count 7.9, Red Blood Count 2.87L, Hemoglobin 8.0L, Hematocrit 26L, M xochilt Corpuscular Volume 90, Mean Corpuscular Hemoglobin 28, Mean Corpuscular Hemoglobin Concent 31L, Red Cell Distribution Width 17.9H, Platelet Count 241, Mean Platelet Volume 10.8, Sodium Level 145, Potassium Level 3.7, Chloride Level 107, Carbon Dioxide Level 28, Anion Gap 10, Blood Urea Nitrogen 51H, Creatinine 1.96H, Estimat Glomerular Filtration Rate 36, BUN/Creatinine Ratio 26, Glucose Level 103, Calcium Level 8.6, Corrected Calcium 9.6, Total Bilirubin 0.4, Aspartate Amino Transf (AST/SGOT) 17, Alanine Aminotransferase (ALT/SGPT) 21, Alkaline Phosphatase 77, Total Protein 5.9L, Albumin 2.7L Microbiology 04/30/23 MRSA Screen - Final, Complete MRSA not isolated 04/30/23 Blood Culture - Final, Complete No growth Radiology NAME: VINCENT JASSO [facility] REC#: [id number] PT STATUS: REG ER : 1950 PHYSICIAN: INDY MONTANEZ DO ADMIT DATE: 04/30/23/ER Signed Date of Exam:04/30/23 CHEST 1 VIEW, AP/PA ONLY EXAMINATION: Chest 1 view. HISTORY: Short of breath. COMPARISON: 04/19/2023. FINDINGS: There are multifocal airspace opacities, right greater than left. No pneumothorax. There is a small right effusion, unchanged. Heart size is normal. IMPRESSION: Multifocal airspace opacities, right greater than left with a small right effusion favored to represent pneumonia. Dictated by: Dictated on workstation # [email or web address] Dict: 04/30/236 Trans: 04/30/231947 [facility] [id number] Interpreted by: LISA TREVIÑO MD Electronically signed by: LISA TREVIÑO MD 04/30/231947 Assessment/Plan Assessment/Plan (1) Respiratory distress Status: Resolved Assessment & Plan: ADMIT notes: Unknown etiology at this point Unlikely to be secondary to heart failure as patient has relatively normal heart function Unlikely to be edema based on lung exam and chest x-ray results May be secondary to pneumonia elevated D-dimer Continue on BiPAP, wean as tolerated. Baseline oxygen requirement is 4L at home. Concern for malignancy due to patient report of nodules on previous CT scan from January 202305/12- has completed treatment for pneumonia and steroids, on IV lasix still for suspected acute on chronic diastolic CHF, on 5 lpm supplemental oxygen but significant shortness of breath with any activity. Will change to oral lasix. 05/13- continues to require higher than previous baseline supplemental oxygen and drops markedly with activity, will repeat CT. 05/14- repeat CT with worsening infiltrate, no mass noted, given he had 5 days of antibiotic, will resume with cefepime, possibly inadequate length of treatment. Increase oral lasix to BID with persistent edema and persistent challenges with oxygenation with activity. 05/15- continue cefepime and increased lasix dose, while he has high supplemental oxygen need and desaturation with activity, this has now been stable for several days, anticipate d/c to SNF tomorrow. (2) COPD exacerbation Status: Resolved Assessment & Plan: s/p Zosyn and vancomycin and IV steroids. Continued on tiotropium, Breo and Duonebs. Remains on 5 lpm supplemental oxygen (reports 4 lpm at baseline) 05/15- discussed that Daliresp does not treat exacerbations nor clearly improve baseline lung function but has moderate benefit for decreasing exacerbations when added to triple inhaled therapy. Discussed side effects and starting dose not therapeutic to minimize side effects and he does want to try even with these limitations. (3) Hypertension Status: Chronic Assessment & Plan: Held antihypertensives on admit now given normal blood pressure at this time 05/12 resume amlodipine Qualifiers: Qualified Codes: I10 - Essential (primary) hypertension (4) CAD (coronary artery disease) Onset Date: Unknown Status: Chronic Assessment & Plan: Continue home aspirin and statin. Appreciate Cardiology recommendations. 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 Last 24 hour glucose reasonable, continue 15 units BID. (7) Anemia Status: Chronic Assessment & Plan: at baseline at admit, continue to monitor with daily CBC 05/12- s/p one unit PRBCs Qualifiers: Qualified Codes: D64.9 - Anemia, unspecified (8) Hyperkalemia Status: Resolved Assessment & Plan: K 5.5 on admission, will continue to monitor with daily labs (9) Debility Status: Acute Assessment & Plan: Plan to go to long-term facility when stable (10) DVT prophylaxis Status: Acute Assessment & Plan: Heparin due to CKD (11) Discharge planning issues Status: Acute Assessment & Plan: 05/13 discussed current condition with via telephone for > 15 minutes. Given he has already completed steroids, antibiotics and remains on diuretics, uncertain why he continues to have such hypoxia with activity. Discused challenge with his CHF, COPD and CKD, and she notes he has had significant breathing issues for years, but worse in last several months, unclear if this may be a new baseline for him. She is concerned he is not moving around enough and that he is getting down. Will repeat CT today and possible d/c to SNF tomorrow. 05/14 discussed goals of care and planning with patient this morning, including the concern that with his multiple comorbidities he may be at a "new normal", discussed that if he chose to pursue comfort goals at some point, that he would be a reasonable candidate for that given his multiple end stage diseases. He expresses understanding and consideration, but wants to continue with aggressive care with curative goals at this time. Called and spoke with his as well and updated her on our conversation and the changes today. 05/15 discussed that he has been stable although somewhat tenuous for several days, anticipate trying to d/c to SNF tomorrow if he remains stable even at this relatively high supplemental oxygen requirement as it may take quite some time to improve, if he is going to return to previous baseline. TRICIA BHATTI MD May 15, 2023 09:14
[2023-05-15] MEDS: ROFLUMILAST 500 MCG TAB (DALIRESP) PO SCH (10:11)
[2023-05-15 11:27] VITALS: BP 154/63
--- NOTE | 2023-05-15 11:45 | Physical Therapy Daily Note ---
PT Daily Note-Current Subjective Patient agrees to PT. Pain Section J - Health Conditions 1. Rarely or not at all 2. Occasionally 3. Frequently 4. Almost constantly 8. Unable to answer Pain Effect on Sleep: 1 Pain Interference with Therapy: 1 Pain Interference w/Day-to-Day: 1 Mental Status Attachments: Oxygen Transfers SCALE: Activities may be completed with or without assistive devices. 7-Wyrxbnwqkb-otvnnam completes the activity by him/herself with no assistance from a helper. 5-Set-up or Clean-up Assistance-helper sets up or cleans up; patient completes activity. [place] assists only prior to or following the activity. 4-Supervision or Touching Assistance-helper provides verbal cues and/or touching/steadying and/or contact guard assistance as patient completes activity. Assistance may be provided throughout the activity or intermittently. 3-Partial/Moderate Assistance-helper does LESS THAN HALF the effort. [place] lifts, holds or supports trunk or limbs, but provides less than half the effort. 2-Substantial/Maximal Assistance-helper does MORE THAN HALF the effort. [place] lifts or holds trunk or limbs and provides more than half the effort. 8-Zoxkhrukj-vqtapw does ALL the effort. Patient does none of the effort to complete the activity. Or, the assistance of 2 or more helpers is required for the patient to complete the activity. If activity was not attempted, code reason: 7-Patient Refused. 9-Not Applicable-not attempted and the patient did not perform the activity before the current illness, exacerbation or injury. 10-Not Attempted due to Environmental Limitations-(lack of equipment, weather restraints, etc.). 88-Not Attempted due to Medical Conditions or Safety Concerns. Sit to Stand (QC): 4 Chair/Hwb-mi-Spudy Xfer(QC): 4 Weight Bearing Right Lower Extremity: Right Full Weight Bearing Left Lower Extremity: Left Full Weight Bearing Gait Training Distance: 150' x 2 Walk 10 feet (QC): 4 Walk 50 ft with 2 Turns(QC): 4 Walk 150 ft (QC): 4 Gait Assistive Device: Walker 4 Wheeled steady, functional gait sequence Assessment Patient's SAO2 79% on 6L with activity with quick recovery. O2 placed on 3L after recovery. Patient up in recliner with needs met. PT Medical Records Clerk Goals Mcc Goals PT Medical Records Clerk Goals Time Frame: May 29, 2023 Roll Left & Right (QC): 6 Sit to Lying (QC): 6 Lying-Sitting on Side/Bed(QC): 6 Sit to Stand (QC): 6 Chair/Evl-tp-Vgwds Xfer(QC): 6 Toilet Transfer (QC): 6 Does the Patient Walk: Yes Walk 10 feet (QC): 4 Walk 50ft with 2 Turns (QC): 4 Walk 150 ft (QC): 4 PT Plan Treatment/Plan Treatment Plan: Continue Plan of Care Treatment Plan: Bed Mobility, Education, Functional Activity González, Functional Strength, Group Therapy, Gait, Safety, Therapeutic Exercise, Transfers Treatment Duration: Jun 28, 2023 Frequency: 6 times per week Estimated Hrs Per Day: .25 hour per day Patient and/or Family Agrees t: Yes Time Time In: 1101 Time Out: 1124 DATE: May 15, 2023 Total Billed Treatment Time: 23 Total Billed Treatment 1 visit FA x 2 23 min YUNG HASSAN PT May 15, 2023 11:45
[2023-05-15 15:12] VITALS: BP 132/65
--- NOTE | 2023-05-15 15:36 | Occupational Ther Daily Note ---
OT Current Status-Daily Note Subjective AGREEABLE to OT, many question and concerns w/ home 02, 02 regulator, walk test w/ RT and tank sizes for upright walker Pain Numeric Pain Scale: 5-Moderate Pain Location Body Site: Back Pain Description: Chronic Comment: OT spoke w/ JEREMÍAS on phone to answer questions, RN Britany concluded ?'s Mental Status/Objective Patient Orientation: Person, Place, Time, Situation Attachments: Oxygen (high flow NC 4 liters) ADL-Treatment Therapy Code Descriptions/Definitions Functional [place] Measure: 0=Not Assessed/NA 4=Minimal Assistance 1=Total Assistance 5=Supervision or Setup 2=Maximal Assistance 6=Modified [place] 3=Moderate Assistance 7=Complete IndependenceSCALE: Activities may be completed with or without assistive devices. 5-Xrjfkpwmfd-yuoicta completes the activity by him/herself with no assistance from a helper. 5-Set-up or Clean-up Assistance-helper sets up or cleans up; patient completes activity. [place] assists only prior to or following the activity. 4-Supervision or Touching Assistance-helper provides verbal cues and/or touching/steadying and/or contact guard assistance as patient completes activity. Assistance may be provided throughout the activity or intermittently. 3-Partial/Moderate Assistance-helper does LESS THAN HALF the effort. [place] lifts, holds or supports trunk or limbs, but provides less than half the effort. 2-Substantial/Maximal Assistance-helper does MORE THAN HALF the effort. [place] lifts or holds trunk or limbs and provides more than half the effort. 1-Pytevwdlq-rrvchd does ALL the effort. Patient does none of the effort to complete the activity. Or, the assistance of 2 or more helpers is required for the patient to complete the activity. If activity was not attempted, code reason: 7-Patient Refused. 9-Not Applicable-not attempted and the patient did not perform the activity before the current illness, exacerbation or injury. 10-Not Attempted due to Environmental Limitations-(lack of equipment, weather restraints, etc.). 88-Not Attempted due to Medical Conditions or Safety Concerns. Eating (QC): 6 Oral Hygiene (QC): 5 (set up) Shower/Bathe Self (QC): 7 Upper Body Dressing (QC): 5 Lower Body Dressing (QC): 5 On/Off Footwear: 5 Toileting Hygiene (QC): 5 Toilet Transfer (QC): 5 Education OT Patient Education: Energy conservation, Exercise program, Modified ADL techniques, Progress toward Goal/Update tx plan, Purpose of tx/functional activities, Reviewed precautions, Rehab process, Safety issues, Transfer techniques, Use of adapted equipment Teaching Recipient: Patient, Family Teaching Methods: Discussion Response to Teaching: Verbalize Understanding, Reinforcement Needed OT Station Baggage Agent Goals Station Baggage Agent Goals Time Frame: May 16, 2023 Eating (QC): 6 Oral Hygiene (QC): 6 Toileting Hygiene (QC): 6 Shower/Bathe Self (QC): 5 Upper Body Dressing (QC): 6 Lower Body Dressing (QC): 6 On/Off Footwear (QC): 6 1=Demonstrate adherence to instructed precautions during ADL tasks. 2=Patient will verbalize/demonstrate understanding of assistive devices/modifications for ADL. 3=Patient will improve strength/tolerance for activity to enable patient to perform ADL's. OT Education/Plan Problem List/Assessment Assessment: Decreased Activ Tolerance, Impaired Self-Care Skills Discharge Recommendations Plan/Recommendations: Continue POC Therapy Discharge Recommendati: Post Acute OT Treatment Plan/Plan of Care Treatment,Training & Education: Yes Patient would benefit from OT for education, treatment and training to promote independence in ADL's, mobility, safety and/or upper extremity function for ADL's. Plan of Care: ADL Retraining, Functional Mobility, Group Exercise/Act as Ind, UE Funct Exercise/Act Treatment Duration: May 16, 2023 Frequency: 3 times per week (3-5 TIMES PER WEEK) Estimated Hrs Per Day: .25 hour per day Agreement: Yes Rehab Potential: Fair Time Start Time: 15:20 Stop Time: 15:35 DATE: May 15, 2023 Total Time Billed (hr/min): 15 Billed Treatment Time FA 15 min BETSEY GARCIA OT May 15, 2023 15:35
[2023-05-15] MEDS: MONTELUKAST 10 MG TABLET PO SCH (18:23)
[2023-05-15] MEDS: TAMSULOSIN 0.4 MG (FLOMAX) CAP PO SCH (18:23)
[2023-05-15 19:24] VITALS: BP 129/61
[2023-05-15 23:30] VITALS: BP 133/62
[2023-05-16] MEDS: RT-ALBUTEROL SULF 2.5 MG/3 ML PRE-MIX VIAL INH PRN (02:16)
[2023-05-16 03:40] VITALS: BP 126/54
[2023-05-16] MEDS: inSUlin ASPART 1 UNIT/0.01 ML (PER UNIT) SC SCH ×3 (05:31→15:41)
[2023-05-16] MEDS: PANTOPRAZOLE 40 MG (PROTONIX) TAB PO SCH (05:31)
[2023-05-16] MEDS: CEFEPIME 1,000 MG/NS 50 ML IVPB IV SCH ×4 (05:32→14:11)
[2023-05-16 05:55] LABS: HEMATOCRIT 24 % (40-54); HEMOGLOBIN 7.7 g/dL (13.3-17.7); MEAN CORPUSCULAR HEMOGLOBIN 28 pg (25-34); MEAN CORPUSCULAR HGB CONC 32 g/dL (32-36); MEAN CORPUSCULAR VOLUME 89 fL (80-99); MEAN PLATELET VOLUME 10.6 fL (9.0-12.2); PLATELET COUNT 254 10^3/uL (130-400); WHITE BLOOD COUNT 7.2 10^3/uL (4.3-11.0)
[2023-05-16 06:07] LABS: POTASSIUM 3.5 MMOL/L (3.6-5.0)
[2023-05-16 06:08] LABS: CALCIUM 8.4 MG/DL (8.5-10.1)
[2023-05-16 06:13] LABS: CREATININE SERUM 1.94 MG/DL (0.60-1.30)
[2023-05-16 07:04] VITALS: BP 136/60
[2023-05-16] MEDS: RT-Ipratropium/Albuterol NEB 3 ML VIAL INH SCH ×3 (07:24→15:07)
[2023-05-16] MEDS: TIOTROPIUM INH 4 GM (SPIRIVA Respimat) IH SCH (07:25)
[2023-05-16] MEDS: FLUTICASONE/VILANTEROL 200/25 MCG (7 DOSES) IH SCH (07:32)
[2023-05-16] MEDS: ASPIRIN enteric coated 81MG TABLET PO SCH (09:45)
[2023-05-16] MEDS: FLUTICASONE NASAL SPRAY (120 SPRAYS) NS SCH (09:45)
[2023-05-16] MEDS: FUROSEMIDE 40 MG TABLET PO SCH (09:45)
[2023-05-16] MEDS: amLODIPine 5 MG TABLET PO SCH (09:45)
[2023-05-16] MEDS: FOLIC ACID 1 MG TAB PO SCH (09:45)
[2023-05-16] MEDS: CLOPIDOGREL 75 MG TABLET PO SCH (09:45)
[2023-05-16] MEDS: CYANOCOBALAMIN 1,000 MCG TABLET PO SCH (09:45)
[2023-05-16] MEDS: ROFLUMILAST 500 MCG TAB (DALIRESP) PO SCH (09:48)
[2023-05-16] MEDS: inSUlin DETERMIR 1 UNIT/0.01 ML (CHARGE PER UNIT) SQ SCH (09:48)
[2023-05-16 11:12] VITALS: BP 137/63
[2023-05-16] MEDS ORDERED: ALOG6.25 PO (13:25)
[2023-05-16] MEDS ORDERED: TMSL.4C PO (13:25)
[2023-05-16] MEDS ORDERED: MONT-40 PO (13:25)
[2023-05-16] MEDS ORDERED: CEFD300C3 PO (13:25)
[2023-05-16] MEDS ORDERED: INSU100V5 SQ (13:25)
[2023-05-16] MEDS ORDERED: ALBU18HF2 INH (13:25)
[2023-05-16] MEDS ORDERED: FOLI0.4T6 PO (13:25)
[2023-05-16] MEDS ORDERED: NITR0.4T39 SL (13:25)
[2023-05-16] MEDS ORDERED: METO50TA7 PO (13:25)
[2023-05-16] MEDS ORDERED: PANT40TA52 PO (13:25)
[2023-05-16] MEDS ORDERED: CYAN-41 PO (13:25)
[2023-05-16] MEDS ORDERED: CLOP75TA28 PO (13:25)
[2023-05-16] MEDS ORDERED: ASPI-1238 PO (13:25)
[2023-05-16] MEDS ORDERED: BUDE10.7 IH (13:25)
[2023-05-16] MEDS ORDERED: FURO40TA4 PO (13:25)
[2023-05-16] MEDS ORDERED: ATOR40TA PO (13:25)
[2023-05-16] MEDS ORDERED: AMLO-250 PO (13:25)
[2023-05-16] MEDS ORDERED: FLUT9.9S NSEACH (13:25)
--- NOTE | 2023-05-16 13:47 | Discharge Inst-Skilled Nursing ---
Discharge Inst-Skilled NF Patient Instructions Patient Problems: COPD CHF CKD DMII Right guerrero ulceration Consult/Follow Up/Orders Follow up appt.: Follow up via physician at SNF. Follow up with Urology next week as scheduled. Skilled NF Admit to: [facility] Certifications SNF I certify that SNF services are required to be given on an inpatient basis because of the above named patient's need for shelter care on a continuing basis for the conditions(s) for which he/she was receiving inpatient hospital services prior to his/her transfer to the SNF. [facility] Facility Order: Nursing Services, Director Financial Services-Evaluate & Treat, Physical Therapy-Evaluate & Treat Oxygen Delivery Method: High Flow N/C Discharge Diet: Low Sodium Diet, ADA Diet Daily Activity as Tolerated: Yes New & Resume Previous Orders Other Instructions Right leg wound dressing changes: Silver alginate to wound bed and secure with bordered foam dressing. Change daily until drainage resolved, then KASIA. Check CBC and BMP on Friday05/19/23. Discharge Medications New, Converted or Re-Newed RX: Transmitted to Pharmacy New Medications: Cefdinir (Cefdinir) 300 Mg Capsule 300 MG PO BID, #14 CAP 0 Refills Furosemide (Furosemide) 40 Mg Tablet 40 MG PO BID, #60 TAB 0 Refills Metoprolol Succinate (Metoprolol Succinate) 50 Mg Tab.er.24h 50 MG PO DAILY, #30 TAB 0 Refills Changed Medications: Albuterol Sulfate (Ventolin Hfa) 90 Mcg Hfa.aer.ad 2 PUFF INH Q4H PRN for SHORTNESS OF BREATH, #1 INHALER 0 Refills (Changed from: Albuterol Sulfate (Ventolin Hfa) 18 Gm Hfa.aer.ad 2 Puff INH Q4H PRN SHORTNESS OF BREATH) Insulin Determir (Levemir) 100 Unit/Ml Soln 20 UNIT SQ BID, #1 EA 0 Refills (Changed from: 40 UNIT; Refills: ) Continued Medications: Alogliptin Benzoate (Nesina) 6.25 Mg Tablet 6.25 MG PO DAILY, #30 TAB 0 Refills (This prescription has been renewed) Amlodipine Besylate (Amlodipine Besylate) 5 Mg Tablet 5 MG PO DAILY, #30 TAB 0 Refills (This prescription has been renewed) Aspirin (Aspirin EC) 81 Mg Tablet.dr 81 MG PO DAILY, #30 TAB 0 Refills (This prescription has been renewed) Atorvastatin Calcium (Lipitor) 40 Mg Tablet 40 MG PO 1700, #30 TAB 0 Refills (This prescription has been renewed) Budesonide/Glycopyr/Formoterol (Breztri Aerosphere Inhaler) 160 Mcg-9 Mcg-4.8 Mcg/Actuation Hfa.aer.ad 2 PUFF IH BID, #1 EACH 0 Refills (This prescription has been renewed) Clopidogrel Bisulfate (Clopidogrel) 75 Mg Tablet 75 MG PO DAILY, #30 TAB 0 Refills (This prescription has been renewed) Cyanocobalamin (Vitamin B-12) (Vitamin B-12) 1,000 Mcg Tablet 1000 MCG PO DAILY, #30 TAB 0 Refills (This prescription has been renewed) Fluticasone Propionate (Flonase Allergy Relief) 50 Mcg/Actuation [place].susp 1-2 SPRAY NSEACH DAILY, #1 EACH 0 Refills (This prescription has been renewed) Folic Acid (Folic Acid) 0.4 Mg Tablet 0.4 MG PO DAILY, #30 TAB 0 Refills (This prescription has been renewed) Montelukast Sodium (Montelukast Sodium) 10 Mg Tablet 10 MG PO 1700, #30 TAB 0 Refills (This prescription has been renewed) Nitroglycerin (Nitroglycerin) 0.4 Mg Tab.subl 0.4 MG SL UD PRN for CHEST PAIN, #10 TAB 0 Refills (This prescription has been renewed) Pantoprazole Sodium (Pantoprazole Sodium) 40 Mg Tablet.dr 40 MG PO DAILY, #30 TAB 0 Refills (This prescription has been renewed) Tamsulosin HCl (Flomax) 0.4 Mg Cap 0.4 MG PO 1700, #30 CAP 0 Refills (This prescription has been renewed) Discontinued Medications: Carvedilol (Carvedilol) 25 Mg Tablet 12.5 MG PO BID WITH MEALS, TAB TAKES (25MG) TABLET Clonidine HCl (Clonidine HCl) 0.1 Mg Tablet 0.1 MG PO TID, #90 TAB Tricia Vogt May 16, 2023 13:44 TRICIA VOGT MD May 16, 2023 13:47
--- NOTE | 2023-05-16 13:48 | Discharge Summary ---
Discharge Summary Hospital Course Problems/Diagnosis: (1) Respiratory distress Status: Resolved Resolution Date/Time: 05/12/23 @ 13:52 Assessment & Plan: ADMIT notes: Unknown etiology at this point Unlikely to be secondary to heart failure as patient has relatively normal heart function Unlikely to be edema based on lung exam and chest x-ray results May be secondary to pneumonia elevated D-dimer Continue on BiPAP, wean as tolerated. Baseline oxygen requirement is 4L at home. Concern for malignancy due to patient report of nodules on previous CT scan from January 202305/12- has completed treatment for pneumonia and steroids, on IV lasix still for suspected acute on chronic diastolic CHF, on 5 lpm supplemental oxygen but significant shortness of breath with any activity. Changed to oral lasix. 05/14- repeat CT with worsening infiltrate, no mass noted, given he had 5 days of antibiotic, will resume with cefepime, possibly inadequate length of treatment. Increased oral lasix to BID with persistent edema and persistent challenges with oxygenation with activity. 05/16- stable with stable creatinine on higher dose lasix, actually on 4 lpm supplemental oxygen at times, discharged to SNF (2) COPD exacerbation Status: Resolved Resolution Date/Time: 05/12/23 @ 13:55 Assessment & Plan: s/p Zosyn and vancomycin and IV steroids. Continued on tiotropium, Breo and Duonebs. Remains on 5 lpm supplemental oxygen (reports 4 lpm at baseline) 05/15- discussed that Daliresp does not treat exacerbations nor clearly improve baseline lung function but has moderate benefit for decreasing exacerbations when added to triple inhaled therapy. Discussed side effects and starting dose not therapeutic to minimize side effects and he does want to try even with these limitations. (3) Hypertension Status: Chronic Assessment & Plan: Held antihypertensives on admit now given normal blood pressure at this time 05/12 resumed amlodipine Qualifiers: Qualified Codes: I10 - Essential (primary) hypertension (4) CAD (coronary artery disease) Onset Date: Unknown Status: Chronic Assessment & Plan: Continue home aspirin and statin. Appreciate Cardiology recommendations. 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 Dose decreased for home meds on d/c. (7) Anemia Status: Chronic Assessment & Plan: at baseline at admit, continue to monitor with daily CBC 05/12- s/p one unit PRBCs Qualifiers: Qualified Codes: D64.9 - Anemia, unspecified (8) Hyperkalemia Status: Resolved Resolution Date/Time: 05/12/23 @ 14:07 Assessment & Plan: K 5.5 on admission, will continue to monitor with daily labs (9) Debility Status: Acute Assessment & Plan: [facility] (10) Urinary retention Status: Acute Assessment & Plan: Discharged with cath in place, on Flomax, has follow up with Urology in [place] next week. (11) Leg ulcer Status: Acute Assessment & Plan: Ruptured blister on right guerrero, mild erythema surrounding, seen by wound care and dressing recommendations put in discharge orders. On cefdinir on d/c. Qualifiers: Qualified Codes: L97.911 - Non-pressure chronic ulcer of unspecified part of right lower leg limited to breakdown of skin (12) Pneumonia Status: Acute Assessment & Plan: Completed course of Zosyn but had worsening on repeat imaging when having trouble weaning O2. Started cefepime with some improvement, discharged on cefdinir. Qualifiers: Qualified Codes: J18.9 - Pneumonia, unspecified organism (13) Acute on chronic diastolic (congestive) heart failure Status: Acute (14) Discharge planning issues Status: Acute Assessment & Plan: 05/13 discussed current condition with via telephone for > 15 minutes. Given he has already completed steroids, antibiotics and remains on diuretics, uncertain why he continues to have such hypoxia with activity. Discused challenge with his CHF, COPD and CKD, and she notes he has had significant breathing issues for years, but worse in last several months, unclear if this may be a new baseline for him. She is concerned he is not moving around enough and that he is getting down. Will repeat CT today and possible d/c to SNF tomorrow. 05/14 discussed goals of care and planning with patient this morning, including the concern that with his multiple comorbidities he may be at a "new normal", discussed that if he chose to pursue comfort goals at some point, that he would be a reasonable candidate for that given his multiple end stage diseases. He expresses understanding and consideration, but wants to continue with aggressive care with curative goals at this time. Called and spoke with his as well and updated her on our conversation and the changes today. 05/15 discussed that he has been stable although somewhat tenuous for several days, anticipate trying to d/c to SNF tomorrow if he remains stable even at this relatively high supplemental oxygen requirement as it may take quite some time to improve, if he is going to return to previous baseline. Hospital Course Date of Admission: Apr 30, 2023 at 21:08 Admission Diagnosis : Family Physician/Provider: Jasmin Bland Yard Switch Operator Date of Discharge: 05/16/23 Discharge Diagnosis: See problem list Hospital Course: See problem list. Patient with lengthy complicated stay, had several discussions with him about his multiple comorbidities- CHF, CKD and COPD all making it very challenging to maximize his function, and unknown how much lung improvement he may expect. He will need repeat labs Friday to follow up his anemia and his CKD, will need lasix dose decreased likely at some point. Labs and Pending Lab Test: Laboratory Tests 05/15/23 15:31: Glucometer 82 05/15/23 20:12: Glucometer 210H 05/16/23 05:26: Glucometer 90 05/16/23 05:45: White Blood Count 7.2, Red Blood Count 2.75L, Hemoglobin 7.7L, Hematocrit 24L, Mean Corpuscular Volume 89, Mean Corpuscular Hemoglobin 28, Mean Corpuscular Hemoglobin Concent 32, Red Cell Distribution Width 18.0H, Platelet Count 254, Mean Platelet Volume 10.6, Sodium Level 145, Potassium Level 3.5L, Chloride Level 107, Carbon Dioxide Level 28, Anion Gap 10, Blood Urea Nitrogen 50H, Creatinine 1.94H, Estimat Glomerular Filtration Rate 37, BUN/Creatinine Ratio 26, Glucose Level 65L, Calcium Level 8.4L 05/16/23 10:45: Glucometer 213H Microbiology 05/14/23 Gram Stain - Final, Resulted 05/14/23 Wound Culture - Preliminary, Resulted No growth 04/30/23 MRSA Screen - Final, Complete MRSA not isolated 04/30/23 Blood Culture - Final, Complete No growth Home Meds Active Cefdinir 300 Mg Capsule 300 Mg PO BID Furosemide 40 Mg Tablet 40 Mg PO BID Metoprolol Succinate 50 Mg Tab.er.24h 50 Mg PO DAILY Levemir (Insulin Determir) 100 Unit/Ml Soln 20 Unit SQ BID Amlodipine Besylate 5 Mg Tablet 5 Mg PO DAILY Folic Acid 0.4 Mg Tablet 0.4 Mg PO DAILY Vitamin B-12 (Cyanocobalamin (Vitamin B-12)) 1,000 Mcg Tablet 1,000 Mcg PO DAILY Breztri Aerosphere Inhaler (Budesonide/Glycopyr/Formoterol) 160 Mcg-9 Mcg-4.8 Mcg/Actuation Hfa.aer.ad 2 Puff IH BID Nesina (Alogliptin Benzoate) 6.25 Mg Tablet 6.25 Mg PO DAILY Flonase Allergy Relief (Fluticasone Propionate) 50 Mcg/Actuation [place].susp 1-2 [place] NSEACH DAILY Nitroglycerin 0.4 Mg Tab.subl 0.4 Mg SL UD PRN Montelukast Sodium 10 Mg Tablet 10 Mg PO 1700 Ventolin Hfa (Albuterol Sulfate) 90 Mcg Hfa.aer.ad 2 Puff INH Q4H PRN Flomax (Tamsulosin HCl) 0.4 Mg Cap 0.4 Mg PO 1700 Lipitor (Atorvastatin Calcium) 40 Mg Tablet 40 Mg PO 1700 Aspirin EC (Aspirin) 81 Mg Tablet.dr 81 Mg PO DAILY Clopidogrel (Clopidogrel Bisulfate) 75 Mg Tablet 75 Mg PO DAILY Pantoprazole Sodium 40 Mg Tablet.dr 40 Mg PO DAILY Assessment/Pt DC Instructions Follow up via SNF. Discharge Diet: Low Sodium Diet, ADA Diet, Cardiac Diet Activity as Tolerated: Yes Discharge Physical Examination Allergies: Coded Allergies: liraglutide (Verified Allergy, Unknown, 09/06/21) General Appearance: No Apparent Distress Respiratory: Lungs Clear, Normal Breath Sounds Cardiovascular: Regular Rate, Rhythm, No Murmur Extremity: Other (2+ pedal edema) Skin: Other (ulcerated area about 5 cm in diameter on right guerrero with serous drainage and mild surrounding erythema) Neurologic/Psychiatric: Alert, Normal Mood/Affect TRICIA BHATTI MD May 16, 2023 13:47
[2023-05-16 15:26] VITALS: BP 116/60
== END 2023-05-16 17:00 | DRG 193 ==
LOC: EDUNIT# 17:19 → ER 17:20 → ICU 21:08 → 4TH 05-06 14:45
PROVIDERS: ADMIT Family Medicine; ATTEND Family Medicine
PROC: 5A09457 Assistance with Respiratory Ventilation, 24-96 Consecutive Hours, Continuous Positive Airway Pressure (ICD-10-PCS; principal; 2023-04-30)
PROC: 5A0955A Assistance with Respiratory Ventilation, Greater than 96 Consecutive Hours, High Flow/Velocity Cannula (ICD-10-PCS; 2023-05-08)
DX: J18.9 Pneumonia, unspecified organism (principal); I21.A1 Myocardial infarction type 2; I50.33 Acute on chronic diastolic (congestive) heart failure; J96.21 Acute and chronic respiratory failure with hypoxia; J44.0 Chronic obstructive pulmonary disease with (acute) lower respiratory infection; J44.1 Chronic obstructive pulmonary disease with (acute) exacerbation; I13.0 Hypertensive heart and chronic kidney disease with heart failure and stage 1 through stage 4 chronic kidney disease, or unspecified chronic kidney disease; N17.9 Acute kidney failure, unspecified; N18.4 Chronic kidney disease, stage 4 (severe); L97.911 Non-pressure chronic ulcer of unspecified part of right lower leg limited to breakdown of skin; E11.51 Type 2 diabetes mellitus with diabetic peripheral angiopathy without gangrene; I70.203 Unspecified atherosclerosis of native arteries of extremities, bilateral legs; E87.5 Hyperkalemia; Z79.82 Long term (current) use of aspirin; Z79.899 Other long term (current) drug therapy; Z95.5 Presence of coronary angioplasty implant and graft; I25.10 Atherosclerotic heart disease of native coronary artery without angina pectoris; I25.2 Old myocardial infarction; E78.00 Pure hypercholesterolemia, unspecified; E11.40 Type 2 diabetes mellitus with diabetic neuropathy, unspecified; E11.22 Type 2 diabetes mellitus with diabetic chronic kidney disease; M19.90 Unspecified osteoarthritis, unspecified site; G89.29 Other chronic pain; M54.9 Dorsalgia, unspecified; Z20.822 Contact with and (suspected) exposure to COVID-19; R53.81 Other malaise; E11.649 Type 2 diabetes mellitus with hypoglycemia without coma; R33.9 Retention of urine, unspecified; Z87.891 Personal history of nicotine dependence; I44.7 Left bundle-branch block, unspecified; D63.1 Anemia in chronic kidney disease
CPT/HCPCS: 36415; 36600; 70450; 71045; 71250; 80048; 80053; 80202; 82805; 82947; 83605; 83735; 83880; 84484; 85007; 85025; 85027; 85379; 85610; 85730; 86141; 86850; 86900; 86901; 86920; 87040; 87070; 87081; 87205; 87636; 93005; 94640; 94660; 94664; 94760; 96372; 96374; 96375

== ENCOUNTER 2023-05-18 11:18 | Emergency (ER) | payer MEDICARE, OTHER ==
[~2023-05-18] VITALS: Ht 177 cm; Wt 90.7 kg
[~2023-05-18 11:18] MED LIST changes: +FURO40TA4 PO
[2023-05-18 11:36] LABS: BASOPHILS % (AUTO) 0 % (0-10); EOSINOPHILS # (AUTO) 0.2 10^3/uL (0.0-0.3); EOSINOPHILS % (AUTO) 3 % (0-10); HEMATOCRIT 28 % (40-54); HEMOGLOBIN 8.5 g/dL (13.3-17.7); LYMPHOCYTES % (AUTO) 11 % (12-44); MEAN CORPUSCULAR HEMOGLOBIN 27 pg (25-34); MEAN CORPUSCULAR HGB CONC 31 g/dL (32-36); MEAN CORPUSCULAR VOLUME 89 fL (80-99); MEAN PLATELET VOLUME 10.3 fL (9.0-12.2); MONOCYTES % (AUTO) 11 % (0-12); NEUTROPHILS # (AUTO) 6.9 10^3/uL (1.8-7.8); NEUTROPHILS % (AUTO) 74 % (42-75); PLATELET COUNT 317 10^3/uL (130-400); WHITE BLOOD COUNT 9.2 10^3/uL (4.3-11.0)
--- NOTE | 2023-05-18 11:44 | ED Chest Pain ---
General Chief Complaint: Chest Pain Stated Complaint: CHEST PAIN Nursing Triage Note: PT PRESENTS TO ED VIA EMS FROM [facility] FOR CP STARTING AROUND 1000 THIS AM. PT DESCRIBED THE PAIN L SIDED AND STABBING. 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 PT REPORTS CP FREE UPON ARRIVAL TO ED. PT STATES HE WAS DISCHARGED FROM VIA TRIP 2 DAYS AGO. Source: patient Exam Limitations: no limitations History of Present Illness Date Seen by Provider: May 18, 2023 Time Seen by Provider: 11:21 Initial Comments 72-year-old male presents to the ER via EMS for left-sided chest pain which started around 10 AM this morning. He lives at [facility] and [facility] and the nurse gave him 2 nitros. He currently is pain-free. He states that prior to the nitros the pain was a sharp stabbing pain on the left side of his breastbone. He states it also radiated into his neck for a short period. States he was sitting while the pain started, he was not exerting himself. Denies any shortness of air, diaphoresis, nausea and vomiting with the pain. He denies fevers, and abdominal pain as well. Past medical history includes type 2 diabetes, hypertension, hyperlipidemia, COPD on oxygen, CKD, CHF, CAD. He recently quit smoking. Allergies and Home Medications Allergies Coded Allergies: liraglutide (Verified Allergy, Unknown, 09/06/21) Patient Home Medication List Home Medication List Reviewed: Yes Albuterol Sulfate (Ventolin Hfa) 90 Mcg Hfa.aer.ad, 2 PUFF INH Q4H PRN for SH ORTNESS OF BREATH Prescribed by: TRICIA BHATTI on 05/16/23 1325 Alogliptin Benzoate (Nesina) 6.25 Mg Tablet, 6.25 MG PO DAILY Prescribed by: TRICIA BHATTI on 05/16/23 1325 Amlodipine Besylate (Amlodipine Besylate) 5 Mg Tablet, 5 MG PO DAILY Prescribed by: TRICIA BHATTI on 05/16/23 1325 Aspirin (Aspirin EC) 81 Mg Tablet.dr, 81 MG PO DAILY Prescribed by: TRICIA BHATTI on 05/16/23 1325 Atorvastatin Calcium (Lipitor) 40 Mg Tablet, 40 MG PO 1700 Prescribed by: TRICIA BHATTI on 05/16/23 1325 Budesonide/Glycopyr/Formoterol (Breztri Aerosphere Inhaler) 160 Mcg-9 Mcg-4.8 Mcg/Actuation Hfa.aer.ad, 2 PUFF IH BID Prescribed by: TRICIA BHATTI on 05/16/23 132 Cefdinir (Cefdinir) 300 Mg Capsule, 300 MG PO BID Prescribed by: TRICIA BHATTI on 05/16/23 132 Clopidogrel Bisulfate (Clopidogrel) 75 Mg Tablet, 75 MG PO DAILY Prescribed by: TRICIA BHATTI on 05/16/23 132 Cyanocobalamin (Vitamin B-12) (Vitamin B-12) 1,000 Mcg Tablet, 1,000 MCG PO DAILY Prescribed by: TRICIA BHATTI on 05/16/23 132 Fluticasone Propionate (Flonase Allergy Relief) 50 Mcg/Actuation [place].susp, 1-2 SPRAY NSEACH DAILY Prescribed by: TRICIA BHATTI on 05/16/23 132 Folic Acid (Folic Acid) 0.4 Mg Tablet, 0.4 MG PO DAILY Prescribed by: TRICIA BHATTI on 05/16/23 132 Furosemide (Furosemide) 40 Mg Tablet, 40 MG PO BID Prescribed by: TRICIA BHATTI on 05/16/23 132 Insulin Determir (Levemir) 100 Unit/Ml Soln, 20 UNIT SQ BID Prescribed by: TRICIA BHATTI on 05/16/23 132 Metoprolol Succinate (Metoprolol Succinate) 50 Mg Tab.er.24h, 50 MG PO DAILY Prescribed by: TRICIA BHATTI on 05/16/23 132 Montelukast Sodium (Montelukast Sodium) 10 Mg Tablet, 10 MG PO 1700 Prescribed by: TRICIA BHATTI on 05/16/23 132 Nitroglycerin (Nitroglycerin) 0.4 Mg Tab.subl, 0.4 MG SL UD PRN for CHEST PAIN Prescribed by: TRICIA BHATTI on 05/16/23 132 Pantoprazole Sodium (Pantoprazole Sodium) 40 Mg Tablet.dr, 40 MG PO DAILY Prescribed by: TRICIA BHATTI on 05/16/23 132 Tamsulosin HCl (Flomax) 0.4 Mg Cap, 0.4 MG PO 1700 Prescribed by: TRICIA BHATTI on 05/16/23 1325 Discontinued Medications Carvedilol (Carvedilol) 25 Mg Tablet, 12.5 MG PO BID WITH MEALS, (Reported) Entered as Reported by: RADHA MACKAY on 05/16/21 0819 Clonidine HCl (Clonidine HCl) 0.1 Mg Tablet, 0.1 MG PO TID Prescribed by: DEYANIRA ALLAN on 04/29/23 1054 Review of Systems Review of Systems Constitutional: see HPI Past Kkgdyke-Fjshqu-Wwljux Hx Patient Social History Tobacco Use?: No Smoking Status: Former Smoker Substance use?: No Alcohol Use?: No Pt feels they are or have been: No Immunizations Up To Date Tetanus Booster (TDap): Unknown PED Vaccines UTD: Yes First/Initial COVID19 Vaccinat: NOVEMBER 2020, [employer] Second COVID19 Vaccination Nomi: NOVEMBER 2020, [employer] Third COVID19 Vaccination Date: NOVEMBER 2020, [employer] Seasonal Allergies Seasonal Allergies: No Past Medical History Surgery/Hospitalization HX: Pulmonary edema 02/25, CHF, COPD, DM2, HTN Parotid gland biopsy, CAD, CBP, HLD, MAC DEG. Surgeries: Yes (CHEST TUBE INSERTION, heart cathx9 stents) Cardiac, Coronary Stent Respiratory: Yes (Uses oxygen at 4 L/min nasal cannula at home) COPD Currently Using CPAP: No Currently Using BIPAP: No Cardiac: Yes Chronic Edema/Swelling, Coronary Artery Disease, Heart Attack, High Cholesterol, Hypertension Neurological: No Neuropathy Reproductive Disorders: No Genitourinary: Yes Gastrointestinal: Yes Hepatitis, Polyps Musculoskeletal: Yes Arthritis, Chronic Back Pain Endocrine: Yes Diabetes, Insulin dep HEENT: No (hemmoraging in back of both eyes-pt see specialist for it) Cataract, Macular Degeneration Cancer: No Psychosocial: No Integumentary: No Blood Disorders: No Family Medical History Patient reports no known family medical history. No Pertinent Family Hx Physical Exam Vital Signs Vital Signs - First Documented Capillary Refill : Less Than 3 Seconds Height, Weight, BMI Height: 5'11.00" Weight: 225lbs. 0.0oz. [id number]; 28.00 BMI Method:Stated General Appearance: No Apparent Distress, WD/WN Neck: Normal Inspection, Supple Respiratory: Lungs Clear, No Accessory Muscle Use, No Respiratory Distress, Decreased Breath Sounds Cardiovascular: Regular Rate, Rhythm Extremity: Pedal Edema (4+), Other (Upper extremity pulses equal bilaterally) Neurologic/Psychiatric: Alert, Normal Mood/Affect Skin: Normal Color, Warm/Dry Progress/Results/Core Measures Results/Orders Lab Results Laboratory Tests Test 05/18/23 11:30 05/18/23 13:16 05/18/23 16:23 Range/Units White Blood Count 9.2 4.3-11.0 10^3/uL Red Blood Count 3.10 L 4.30-5.52 10^6/uL Hemoglobin 8.5 L 13.3-17.7 g/dL Hematocrit 28 L 40-54 % Mean Corpuscular Volume 89 80-99 fL Mean Corpuscular Hemoglobin 27 25-34 pg Mean Corpuscular Hemoglobin Concent 31 L 32-36 g/dL Red Cell Distribution Width 17.6 H 10.0-14.5 % Platelet Count 317 130-400 10^3/uL Mean Platelet Volume 10.3 9.0-12.2 fL Immature Granulocyte % (Auto) 1 % Neutrophils (%) (Auto) 74 42-75 % Lymphocytes (%) (Auto) 11 L 12-44 % Monocytes (%) (Auto) 11 0-12 % Eosinophils (%) (Auto) 3 0-10 % Basophils (%) (Auto) 0 0-10 % Neutrophils # (Auto) 6.9 1.8-7.8 10^3/uL Lymphocytes # (Auto) 1.0 1.0-4.0 10^3/uL Monocytes # (Auto) 1.0 0.0-1.0 10^3/uL Eosinophils # (Auto) 0.2 0.0-0.3 10^3/uL Basophils # (Auto) 0.0 0.0-0.1 10^3/uL Immature Granulocyte # (Auto) 0.1 0.0-0.1 10^3/uL Prothrombin Time 13.9 12.2-14.7 SEC INR Comment 1.1 0.8-1.4 Activated Partial Thromboplast Time 25 24-35 SEC Sodium Level 143 135-145 MMOL/L Potassium Level 3.7 3.6-5.0 MMOL/L Chloride Level 104 98-107 MMOL/L Carbon Dioxide Level 29 21-32 MMOL/L Anion Gap 10 5-14 MMOL/L Blood Urea Nitrogen 43 H 7-18 MG/DL Creatinine 2.05 H 0.60-1.30 MG/DL Estimat Glomerular Filtration Rate 34 BUN/Creatinine Ratio 21 Glucose Level 148 H 70-105 MG/DL Calcium Level 8.8 8.5-10.1 MG/DL Corrected Calcium 9.7 8.5-10.1 MG/DL Magnesium Level 1.6 1.6-2.4 MG/DL Total Bilirubin 0.3 0.1-1.0 MG/DL Aspartate Amino Transf (AST/SGOT) 16 5-34 U/L Alanine Aminotransferase (ALT/SGPT) 18 0-55 U/L Alkaline Phosphatase 85 40-136 U/L Troponin I 0.070 H 0.054 H <0.028 NG/ML B-Type Natriuretic Peptide 446.3 H <100.0 PG/ML Total Protein 6.6 6.4-8.2 GM/DL Albumin 2.9 L 3.2-4.5 GM/DL Glucometer 117 H 70-110 MG/DL My Orders Orders - CHAVA MCKNIGHT APRN Cbc With Automated Diff (05/18/23 11:24) Magnesium (05/18/23 11:24) Chest 1 View, Ap/Pa Only (05/18/23 11:24) Comprehensive Metabolic Panel (05/18/23 11:24) Protime With Inr (05/18/23 11:24) Partial Thromboplastin Time (05/18/23 11:24) O2 (05/18/23 11:24) Monitor-Rhythm Ecg Trace Only (05/18/23 11:24) Ed Iv/Invasive Line Start (05/18/23 11:24) Troponin I Jason (05/18/23 11:24) Troponin I [place] (05/18/23 13:15) Bnp Jason (05/18/23 13:52) Vital Signs/I&O 05/18/23 05/18/23 05/18/23 11:21 11:21 17:23 Temp 36.4 Pulse 79 68 Resp 16 20 B/P (MAP) 145/68 (93) 141/54 Pulse Ox 94 94 97 O2 Delivery Nasal Cannula Nasal Cannula Nasal Cannula O2 Flow Rate 8.00 6.00 5.00 Blood Pressure Mean: 93 Progress Progress Note : Progress Note Patient seen and evaluated, resting comfortably in bed, no acute distress. Based on exam and symptoms, cardiac work-up initiated including CBC, CMP, coags, troponin, magnesium, EKG, chest x-ray. 1230 Labs and chest x-ray reviewed. CBC shows decreased hemoglobin 8.5, decreased hematocrit 28. These are improved from labs drawn 2 days ago. CMP shows BUN 43, creatinine 2.05, GFR 34. These are slightly worse than labs completed 2 days ago. Troponin elevated 0.070. Coags normal. Chest x-ray shows increased consolidation on the right from previous x-ray. And stable right effusion. Will repeat a 3-hour troponin. 1352 repeat troponin 0.054, this is decreased. BNP added on at this time to assess whether consolidation on chest x-ray is related to fluid overload versus pneumonia. 1436 BNP elevated 446. This is similar to previous BNP drawn on 04/30/2023. I considered giving additional Lasix for elevated BNP and consolidation on chest x-ray. Patient looks well, patient is not requiring any additional oxygen. He has been on 4 L of oxygen during his entire ER stay, he wears 4 to 5 L at all times at home. He has not had any episodes of hypoxia on the 4 L. Patient denies any trouble breathing. I think the consolidation on his chest x-ray is likely edema, I do not think it is pneumonia again for the reasons listed above including no hypoxia, requiring no additional oxygen, and no reports of shortness of air. I will not treat for pneumonia either. Patient instructed to continue his Lasix as prescribed. Discharge instructions and return precautions provided. Initial ECG Impression Date: May 18, 2023 Initial ECG Impression Time: 11:25 Initial ECG Rate: 75 Initial ECG Rhythm: Normal Sinus Initial ECG Intervals: QRS (Left bundle branch block) Initial ECG Impression: Nonspecific Changes Initial ECG Comparisson: Unchanged Departure Impression Primary Impression: Chest pain Disposition: 01 HOME, SELF-CARE Condition: Stable Departure-Patient Inst. Decision time for Depature: 14:38 Referrals: MIKEY ZAZUETA APRN (PCP/Family) Primary Care Physician Patient Instructions: Chest Pain, Adult ED Add. Discharge Instructions: Continue taking your Lasix as prescribed. 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 Return for severe chest pain, shortness of breath, fever, or any other new, concerning, or worsening symptoms. All discharge instructions reviewed with patient and/or family. Voiced understanding. CHAVA MCKNIGHT APRN May 18, 2023 11:44
[2023-05-18 11:48] LABS: ALBUMIN 2.9 GM/DL (3.2-4.5); POTASSIUM 3.7 MMOL/L (3.6-5.0)
[2023-05-18 11:49] LABS: INR 1.1 (0.8-1.4); PROTHROMBIN TIME PATIENT 13.9 SEC (12.2-14.7)
[2023-05-18 11:50] LABS: CALCIUM 8.8 MG/DL (8.5-10.1)
[2023-05-18 11:51] LABS: TOTAL PROTEIN 6.6 GM/DL (6.4-8.2)
[2023-05-18 11:52] LABS: BILIRUBIN,TOTAL 0.3 MG/DL (0.1-1.0)
--- NOTE | 2023-05-18 11:52 | Diagnostic Imaging Report ---
INDICATION: Chest pain. Dyspnea. COMPARISON: 05/06/2023. DISCUSSION: 2 portable frontal views of the chest were obtained. Volume loss within the right hemithorax is stable. Small right effusion is stable. Dense consolidation within the right lung and left lung base is stable in the left and increased on the right. This could represent worsening pneumonia or edema. Stable heart size. No pneumothorax. No osseous abnormality. IMPRESSION: 1. Right greater than left consolidation, increased on the right. Small right effusion is stable. Dictated by: Dictated on workstation # [id number]
[2023-05-18 11:54] LABS: CREATININE SERUM 2.05 MG/DL (0.60-1.30)
[2023-05-18 11:57] LABS: MAGNESIUM 1.6 MG/DL (1.6-2.4)
[2023-05-18 17:23] VITALS: BP 141/54
== END 2023-05-18 17:22 | disposition home or self-care (01) ==
LOC: EDUNIT# 11:18 → ER 11:20
DX: R07.89 Other chest pain (principal); R79.89 Other specified abnormal findings of blood chemistry; J44.9 Chronic obstructive pulmonary disease, unspecified; I13.0 Hypertensive heart and chronic kidney disease with heart failure and stage 1 through stage 4 chronic kidney disease, or unspecified chronic kidney disease; E11.22 Type 2 diabetes mellitus with diabetic chronic kidney disease; N18.9 Chronic kidney disease, unspecified; I50.9 Heart failure, unspecified; Z79.4 Long term (current) use of insulin; Z99.81 Dependence on supplemental oxygen; Z87.891 Personal history of nicotine dependence; Z86.79 Personal history of other diseases of the circulatory system
CPT/HCPCS: 36415; 71045; 80053; 82947; 83735; 83880; 84484; 85025; 85610; 85730; 93005; 93041

== ENCOUNTER 2023-06-08 03:47 | Inpatient (IN) | payer OTHER ==
[~2023-06-08] VITALS: Ht 177.8 cm; Wt 91.1 kg
[2023-06-08] MEDS ORDERED: methylPREDNISolone INJ 125 MG VIAL IV STA ×2 (03:49)
[2023-06-08] MEDS ORDERED: RT-ALBUTEROL SULF 2.5 MG/3 ML PRE-MIX VIAL INH STA (03:49)
[2023-06-08] MEDS ORDERED: RT-Ipratropium/Albuterol NEB 3 ML VIAL INH ONE (04:00)
[2023-06-08] MEDS ORDERED: CEFEPIME INJECTION 1,000 MG in NS (IVPB) 50 ML 50 ML IV ONE (04:00)
[2023-06-08] MEDS ORDERED: dexAMETHasone INJ 4 MG/ML SDV IH ONE (04:00)
[2023-06-08 04:09] LABS: BASOPHILS # (AUTO) 0.1 10^3/uL (0.0-0.1); BASOPHILS % (AUTO) 0 % (0-10); EOSINOPHILS % (AUTO) 0 % (0-10); HEMATOCRIT 30 % (40-54); HEMOGLOBIN 9.3 g/dL (13.3-17.7); LYMPHOCYTES % (AUTO) 6 % (12-44); MEAN CORPUSCULAR HEMOGLOBIN 27 pg (25-34); MEAN CORPUSCULAR HGB CONC 31 g/dL (32-36); MEAN CORPUSCULAR VOLUME 87 fL (80-99); MEAN PLATELET VOLUME 10.5 fL (9.0-12.2); MONOCYTES # (AUTO) 1.4 10^3/uL (0.0-1.0); MONOCYTES % (AUTO) 8 % (0-12); NEUTROPHILS # (AUTO) 15.5 10^3/uL (1.8-7.8); NEUTROPHILS % (AUTO) 85 % (42-75); PLATELET COUNT 308 10^3/uL (130-400); WHITE BLOOD COUNT 18.2 10^3/uL (4.3-11.0)
--- NOTE | 2023-06-08 04:17 | ED Respiratory ---
General Chief Complaint: Respiratory Problems Stated Complaint: SOB Source: patient (LIMITED INFORMATION DUE TO DYSPNEA AND BEING ON BIPAP ON ARRIVAL), EMS, old records History of Present Illness Date Seen by Provider: Jun 08, 2023 Time Seen by Provider: 03:48 Initial Comments PT ARRIVES VIA EMS FROM HOME PT WITH COPD ON O2 AT 4L/NC CONTINOUSLY C/O INCREASED SHORTNESS OF BREATH OVER THE LAST 3-4 DAYS C/O INCREASED COUGH DENIES CHEST PAIN DENIES FEVER DENIES ANY INCREASE IN CHRONIC LEG SWELLING O2 SATS IN THE 70'S--EMS PLACED ON CPAP. SATS ARE STILL IN THE 70'S ON ARRIVAL HERE. PT HAS HAD A MULTITUDE OF VISITS AND ADMITS HERE FOR RESPIRATORY ISSUES HE HAS BEEN IN AND OUT OF RETIREMENT HIS LAST VISIT HERE IN ER WAS 05/18/23 FOR CHEST PAIN AND HE WAS AT [facility] AT THAT TIME. HE HAS SINCE MOVED BACK HOME HE HAS HAD 3 ADMITS FROM [facility] THROUGH APRIL FOR RESPIRATORY ISSUES. LAST ADMIT HERE 04/30-05/16/23 PT WITH SEVERE COPD, CHF, CAD AND PAD WITH MULTIPLE STENTS/INTERVENTIONS, HTN, HYPERLIPIDEMIA, IDDM, CHRONIC KIDNEY DISEASE, CHRONIC ANEMIA PT CONTINUES TO SMOKE PCP: [facility] [place] Allergies and Home Medications Allergies Coded Allergies: liraglutide (Verified Allergy, Unknown, 09/06/21) Patient Home Medication List Home Medication List Reviewed: Yes Albuterol Sulfate (Ventolin Hfa) 90 Mcg Hfa.aer.ad, 2 PUFF INH Q4H PRN for SHORTNESS OF BREATH Prescribed by: TRICIA BHATTI on 05/16/231324 Last Action: Reviewed Alogliptin Benzoate (Nesina) 6.25 Mg Tablet, 6.25 MG PO DAILY Prescribed by: TRICIA BHATTI on 05/16/231324 Last Action: Held Amlodipine Besylate (Amlodipine Besylate) 5 Mg Tablet, 5 MG PO DAILY Prescribed by: TRICIA BHATTI on 05/16/231324 Last Action: Continued Aspirin (Aspirin EC) 81 Mg Tablet.dr, 81 MG PO DAILY Prescribed by: TRICIA BHATTI on 05/16/231324 Last Action: Reviewed Atorvastatin Calcium (Lipitor) 40 Mg Tablet, 40 MG PO 1700 Prescribed by: TRICIA BHATTI on 05/16/231324 Last Action: Continued Budesonide/Glycopyr/Formoterol (Breztri Aerosphere Inhaler) 160 Mcg-9 Mcg-4.8 Mcg/Actuation Hfa.aer.ad, 2 PUFF IH BID Prescribed by: TRICIA BHATTI on 05/16/231324 Last Action: Reviewed Clopidogrel Bisulfate (Clopidogrel) 75 Mg Tablet, 75 MG PO DAILY Prescribed by: TRICIA BHATTI on 05/16/231324 Last Action: Continued Cyanocobalamin (Vitamin B-12) (Vitamin B-12) 1,000 Mcg Tablet, 1,000 MCG PO DAILY Prescribed by: TRICIA BHATTI on 05/16/231324 Last Action: Continued Fluticasone Propionate (Flonase Allergy Relief) 50 Mcg/Actuation [place].susp, 1-2 SPRAY NSEACH DAILY Prescribed by: TRICIA BHATTI on 05/16/231324 Last Action: Converted Folic Acid (Folic Acid) 0.4 Mg Tablet, 0.4 MG PO DAILY Prescribed by: TRICIA BHATTI on 05/16/231324 Last Action: Converted Furosemide (Furosemide) 40 Mg Tablet, 40 MG PO BID Prescribed by: TRICIA BHATTI on 05/16/231324 Last Action: Reviewed Insulin Detemir (Levemir Flexpen) 100 Unit/Ml (3 Ml) Insuln.pen, 20 UNIT SQ BID, (Reported) Entered as Reported by: JIM MCDONALD on 06/10/231358 Last Action: Held Metoprolol Succinate (Metoprolol Succinate) 100 Mg Tab.er.24h, 50 MG PO DAILY, (Reported) Entered as Reported by: JIM MCDONALD on 06/10/231358 Last Action: Continued Montelukast Sodium (Montelukast Sodium) 10 Mg Tablet, 10 MG PO 1700 Prescribed by: TRICIA BHATTI on 05/16/231324 Last Action: Continued Nitroglycerin (Nitroglycerin) 0.4 Mg Tab.subl, 0.4 MG SL UD PRN for CHEST PAIN Prescribed by: TRICIA BHATTI on 05/16/231324 Last Action: Held Pantoprazole Sodium (Pantoprazole Sodium) 40 Mg Tablet.dr, 40 MG PO DAILY Prescribed by: TRICIA BHATTI on 05/16/231324 Last Action: Continued Tamsulosin HCl (Flomax) 0.4 Mg Cap, 0.4 MG PO 1700 Prescribed by: TRICIA BHATTI on 05/16/231324 Last Action: Continued Discontinued Medications Cefdinir (Cefdinir) 300 Mg Capsule, 300 MG PO BID Discontinued Reason: No Longer Taking Prescribed by: TRICIA BHATTI on 05/16/231324 Last Action: Discontinued Insulin Determir (Levemir) 100 Unit/Ml Soln, 20 UNIT SQ BID Discontinued Reason: Duplicate Order Prescribed by: TRICIA BHATTI on 05/16/231324 Last Action: Discontinued Metoprolol Succinate (Metoprolol Succinate) 50 Mg Tab.er.24h, 50 MG PO DAILY Discontinued Reason: Duplicate Order Prescribed by: TRICIA BHATTI on 05/16/231324 Last Action: Discontinued Review of Systems Review of Systems Constitutional: No fever; malaise, weakness EENTM: no symptoms reported Respiratory: see HPI, cough, short of breath Cardiovascular: No chest pain; edema Gastrointestinal: no symptoms reported Genitourinary: no symptoms reported Musculoskeletal: see HPI Skin: no symptoms reported Psychiatric/Neurological: No Symptoms Reported Hematologic/Lymphatic: No Symptoms Reported Immunological/Allergic: no symptoms reported Past Hxbkjyw-Agkdmt-Ztpxyn Hx Patient Social History Tobacco Use?: Yes Tobacco type used: Cigarettes Smoking Status: Current Everyday Smoker Substance use?: No Alcohol Use?: Yes Alcohol Frequency: Once in a while Immunizations Up To Date Tetanus Booster (TDap): Unknown PED Vaccines UTD: Yes First/Initial COVID19 Vaccinat: NOVEMBER 2020, SHRUTHI AND SHRUTHI Second COVID19 Vaccination Nomi: NOVEMBER 2020, [employer]HI [employer] SHR[employer]HI Third COVID19 Vaccination Date: NOVEMBER 2020, DONALD Seasonal Allergies Seasonal Allergies: No Past Medical History Surgery/Hospitalization HX: Pulmonary edema 02/25, CHF, COPD, DM2, HTN Parotid gland biopsy, CAD, CBP, HLD, MAC DEG. Surgeries: Yes (CHEST TUBE INSERTION;PAROTID GLAND BX; MULT STENTS/INTERVENTIONS) Cardiac, Coronary Stent, Vascular Surgery Respiratory: Yes (Uses oxygen at 4 L/min nasal cannula at home) Pneumonia, COPD Currently Using CPAP: No Currently Using BIPAP: No Cardiac: Yes (PAD AND CAD WITH MULTIPLE INTERVENTIONS/STENTS; CHF; LBBB) Chronic Edema/Swelling, Coronary Artery Disease, Heart Attack, High Cholesterol, Hypertension, Peripheral Vascular Neurological: Yes Neuropathy Reproductive Disorders: No Genitourinary: Yes (CKD) Renal Failure Gastrointestinal: Yes Hepatitis, Polyps Musculoskeletal: Yes Degenerate Disk Disease, Arthritis, Chronic Back Pain Endocrine: Yes Diabetes, Insulin dep HEENT: Yes (hemmoraging in back of both eyes-pt see specialist for it) Cataract, Macular Degeneration Cancer: No Psychosocial: No Integumentary: No Blood Disorders: No Family Medical History Patient reports no known family medical history. No Pertinent Family Hx SOCIAL HISTORY: -SMOKES 1 PPD -ETOH--OCCASIONAL USE -DRUGS--DENIES USE PAST SURGICAL HISTORY: -MULTIPLE CARDIAC CATHS AND PERIPHERAL ANGIOGRAMS WITH CAD AND PAD WITH MULTIPLE STENTS AND INTERVENTIONS -PAROTID GLAND BIOPSY -CHEST TUBE -- Echocardiogram of 02-26-[address] Pizarro showed LVEF 55-60% -- Cardiac cath of by Dr. Pizarro showed: Moderate disease in the mid right coronary artery with occlusion of the distal right PDA, small artery not amendable to intervention. Patent multiple stents in the proximal and mid LAD and proximal mid circumflex artery with mild to moderate in-stent restenosis and mild to moderate coronary artery disease in the left system nonobstructive disease. Normal left ventricular end-diastolic pressure - medical management advised at that time - continue antiplatelet therapy. Physical Exam Vital Signs - First Documented 06/08/23 03:49 Temp 38.3 Pulse 118 Resp 26 B/P (MAP) 121/76 (91) Pulse Ox 96 O2 Delivery NIV CPAP O2 Flow Rate 4.00 FiO2 40 Capillary Refill : Height: 5'11.00" Weight: 225lbs. 0.0oz. 102.181526iz; 28.00 BMI Method:Stated General Appearance: WD/WN, mild distress, other (STRONG ODOR OF CIGARETTES) HEENT: PERRL/EOMI Neck: normal inspection Respiratory: respiratory distress (MILD), decreased breath sounds, accessory muscle use, wheezing, other (DECREASED AERATION IN ALL LUNG ARANDA, COARSE EXPIRATORY WHEEZING BILATERALLY) Cardiovascular: tachycardia Gastrointestinal: non tender, soft Extremities: normal capillary refill, pedal edema (1+ EDEMA. 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 as tested, no motor/sensory deficits, alert, oriented x 3 Skin: normal color, warm/dry Focused Exam Sepsis Stage: Sepsis Possible Source: Pulmonary Lactate Level 06/08/23 03:56: Lactic Acid Level 1.43 Time of Focused Exam: 04:45 Respiratory: Other (INCREASED AERATION, DECREASED WHEEZING, NO DYSPNEA--ON BIPAP) Cardiovascular: No JVD, Tachycardia (100-110) Skin: warm/dry Lactic Acid Level Laboratory Tests Test 06/08/23 03:56 Lactic Acid Level 1.43 MMOL/L (0.50-2.00) Within 3hrs of presentation: Admin ABX, Blood cultures prior to ABX's, Focus exam, Lactate level Progress/Results/Core Measures Suspected Sepsis SIRS Temperature: Pulse: Respiratory Rate: Blood Pressure / Mean: 06/08/23 03:56: Lactic Acid Level 1.43 Laboratory Tests 06/08/23 03:56: INR Comment 1.1 Results/Orders Lab Results Laboratory Tests Test 06/08/23 03:49 06/08/23 03:55 06/08/23 03:56 Range/Units Blood Gas Puncture Site LEFT RADIAL Blood Gas Patient Temperature 38.3 Arterial Blood pH 7.32 *L 7.37-7.43 Arterial Blood Partial Pressure CO2 50 H 35-45 MMHG Arterial Blood Partial Pressure O2 81 79-93 MMHG Arterial Blood HCO3 25 23-27 MMOL/L Arterial Blood Total CO2 26.2 21.0-31.0 MMOL/L Arterial Blood Oxygen Saturation 95 94-100 % Arterial Blood Base Excess -0.2 -2.5-2.5 MMOL/L Howie Test YES-POS Blood Gas Ventilator Setting NO Blood Gas Inspired Oxygen 40 L Influenza Type A (RT-PCR) Not Detected Not Detecte Influenza Type B (RT-PCR) Not Detected Not Detecte SARS-CoV-2 RNA (RT-PCR) Detected H Not Detecte White Blood Count 18.2 H 4.3-11.0 10^3/uL Red Blood Count 3.45 L 4.30-5.52 10^6/uL Hemoglobin 9.3 L 13.3-17.7 g/dL Hematocrit 30 L 40-54 % Mean Corpuscular Volume 87 80-99 fL Mean Corpuscular Hemoglobin 27 25-34 pg Mean Corpuscular Hemoglobin Concent 31 L 32-36 g/dL Red Cell Distribution Width 15.9 H 10.0-14.5 % Platelet Count 308 130-400 10^3/uL Mean Platelet Volume 10.5 9.0-12.2 fL Immature Granulocyte % (Auto) 1 % Neutrophils (%) (Auto) 85 H 42-75 % Lymphocytes (%) (Auto) 6 L 12-44 % Monocytes (%) (Auto) 8 0-12 % Eosinophils (%) (Auto) 0 0-10 % Basophils (%) (Auto) 0 0-10 % Neutrophils # (Auto) 15.5 H 1.8-7.8 10^3/uL Lymphocytes # (Auto) 1.0 1.0-4.0 10^3/uL Monocytes # (Auto) 1.4 H 0.0-1.0 10^3/uL Eosinophils # (Auto) 0.0 0.0-0.3 10^3/uL Basophils # (Auto) 0.1 0.0-0.1 10^3/uL Immature Granulocyte # (Auto) 0.2 H 0.0-0.1 10^3/uL Neutrophils % (Manual) 87 % Lymphocytes % (Manual) 2 % Monocytes % (Manual) 4 % Band Neutrophils 6 % Reactive Lymphocytes 1 % Anisocytosis SLIGHT Schistocytes SLIGHT Erythrocyte Sedimentation Rate > 140 H 0-30 MM/HR Prothrombin Time 14.7 12.2-14.7 SEC INR Comment 1.1 0.8-1.4 Activated Partial Thromboplast Time 30 24-35 SEC D-Dimer 3.70 H 0.00-0.49 UG/ML Sodium Level 140 135-145 MMOL/L Potassium Level 4.3 3.6-5.0 MMOL/L Chloride Level 100 98-107 MMOL/L Carbon Dioxide Level 22 21-32 MMOL/L Anion Gap 18 H 5-14 MMOL/L Blood Urea Nitrogen 31 H 7-18 MG/DL Creatinine 2.08 H 0.60-1.30 MG/DL Estimat Glomerular Filtration Rate 34 BUN/Creatinine Ratio 15 Glucose Level 142 H 70-105 MG/DL Lactic Acid Level 1.43 0.50-2.00 MMOL/L Calcium Level 9.1 8.5-10.1 MG/DL Corrected Calcium 9.8 8.5-10.1 MG/DL Magnesium Level 1.7 1.6-2.4 MG/DL Total Bilirubin 0.4 0.1-1.0 MG/DL Aspartate Amino Transf (AST/SGOT) 15 5-34 U/L Alanine Aminotransferase (ALT/SGPT) 9 0-55 U/L Alkaline Phosphatase 78 40-136 U/L Total Creatine Kinase 40 30-200 U/L Creatine Kinase MB 1.4 <6.6 NG/ML Myoglobin 194.4 H 10.0-92.0 NG/ML Troponin I 0.152 H <0.028 NG/ML C-Reactive Protein High Sensitivity 10.06 H 0.00-0.50 MG/DL B-Type Natriuretic Peptide 1002.7 H <100.0 PG/ML Total Protein 7.4 6.4-8.2 GM/DL Albumin 3.1 L 3.2-4.5 GM/DL Micro Results Microbiology 06/08/23 Blood Culture - Preliminary, Resulted 06/08/23 Blood Culture - Preliminary, Resulted My Orders Orders - VICKEY JONES DO Ed Iv/Invasive Line Start (06/08/23 03:49) Ekg Tracing (06/08/23 03:49) O2 (06/08/23 03:49) Monitor-Rhythm Ecg Trace Only (06/08/23 03:49) Chest 1 View, Ap/Pa Only (06/08/23 03:49) Arterial Blood Gas (06/08/23 03:49) Bnp Jason (06/08/23 03:49) Cbc With Automated Diff (06/08/23 03:49) Comprehensive Metabolic Panel (06/08/23 03:49) Creatine Kinase (06/08/23 03:49) Creatine Kinase Mb (06/08/23 03:49) Hs C Reactive Protein (06/08/23 03:49) Fibrin Degradation Products (06/08/23 03:49) Lactic Acid Analyzer (06/08/23 03:49) Magnesium (06/08/23 03:49) Protime With Inr (06/08/23 03:49) Partial Thromboplastin Time (06/08/23 03:49) Ua Culture If Indicated (06/08/23 03:49) Blood Culture (06/08/23 03:49) Erythrocyte Sedimentation Rate (06/08/23 03:49) Myoglobin Serum (06/08/23 03:49) Troponin I Jason (06/08/23 03:49) Covid 19 Inhouse Test (06/08/23 03:49) Urine Culture (06/08/23 03:49) Ed Iv/Invasive Line Start (06/08/23 03:49) Ed Iv/Invasive Line Start (06/08/23 03:49) Vital Signs Adult Sepsis Patie Q15M (06/08/23 03:49) O2 (06/08/23 03:49) Cefepime Injection (Cefepime Injection) (06/08/23 04:00) Influenza A And B By Pcr (06/08/23 03:49) Albuterol Pre-Mix Nebs (Rt) (Albuterol (06/08/23 03:49) Ipratropium/Albuterol Inh Soln (Ipratrop (06/08/23 04:00) Dexamethasone Injection (Decadron Injec (06/08/23 04:00) Rt Request For Service (06/08/23 03:49) Methylprednisolone Sod Succ (Methylpredn (06/08/23 03:49) Svn Small Volume Nebulizer (06/08/23 03:49) Svn Small Volume Nebulizer (06/08/23 03:49) Methylprednisolone Sod Succ (Methylpredn (06/08/23 03:49) Manual Differential (06/08/23 03:56) Arterial Blood Draw - Obtain (06/08/23 ) Furosemide Injection (Furosemide Injec (06/08/23 05:00) Ed Admission (Communication) (06/08/23 04:57) Enoxaparin Injection (Enoxaparin Injecti (06/08/23 05:00) Code/Resuscitation (06/08/23 05:01) Medications Given in ED Vital Signs/I&O 06/08/23 06/08/23 06/08/23 06/08/23 03:49 03:49 03:49 04:18 Temp 38.3 Pulse 118 106 Resp 26 26 B/P (MAP) 121/76 (91) Pulse Ox 96 96 O2 Delivery NIV CPAP NIV CPAP Nasal Cannula O2 Flow Rate 4.00 4.00 40.00 FiO2 40 06/08/23 05:05 Temp 38.2 Pulse 112 Resp 24 B/P (MAP) 124/55 Pulse Ox 96 O2 Delivery NIV Bilevel Capillary Refill : Progress Note : Progress Note IMMEDIATELY SWITCHED TO BIPAP ON ARRIVAL, AND O2 SATS QUICKLY WENT UP TO 100% AND PT APPEARS TO BE LESS DYSPNEIC. VITALS ON ARRIVAL: TEMP 38.3, HR 118, RR 26, BP 121/76 INITIALLY O2 SATS IN 70'S ON ARRIVAL, THEN QUICKLY WENT UP SOON PT WAS PLACED ON BIPAP SEPSIS PROTOCOL INITIATED GIVEN: -HOUR LONG DUO NEB TREATMENT, PLUS INHALED DECADRON -SOLU-MEDROL -CEFEPIME -LASIX -LOVENOX TYLENOL/MOTRIN HELD AT THIS TIME DUE TO NEED FOR BIPAP AND IS RECEIVING CONTINUOUS NEB TREATMENT AT THIS TIME IV FLUIDS HELD DUE TO CHF LABS: -CBC WITH WBC 18.2, HGB 9.3, PLT 308,000 -CMP WITH NA 140, K 4.3, BUN 31, CR 2.08, GLU 142 -MG 1.7 -CK 40, CK-MB 1.4, MYOGLOBIN 194.4 -TROPONIN 0.152 -BNP 1002.7 -CRP 10.06 -LACTIC ACID 1.43 -PT 14.7, PTT 30, INR 1.1 -D-DIMER 3.70 -ABG'S--PH 7.32, PCO2 50, PO2 81, O2 SAT 95% ON BIPAP -COVID/FLU--STILL PENDING AT TIME OF ADMIT ( PROBLEMS WITH LAB ) EKG WITH CHRONIC LBBB, NO ACUTE CHANGES CXR WITH PERSISTENT BILATERAL INFILTRATES, RIGHT PLEURAL EFFUSION AND CHF--PENDING RADIOLOGIST REVIEW NO DETERIORATION IN PT'S CONDITION DURING ER STAY VITALS STABLE PT WISHES TO BE A FULL CODE REVIEWED PRIOR RECORDS INCLUDING ER VISITS, ADMITS/H&P'S/CONSULTS/DISCHARGE SUMMARIES, TESTS/PROCEDURES. DISCUSSED TEST RESULTS, NEED FOR ADMIT AND PT IS AGREEABLE TO PLAN ECG Initial ECG Impression Date: Jun 08, 2023 Initial ECG Impression Time: 04:01 Initial ECG Rate: 103 Initial ECG Rhythm: S.Tach (LBBB) Initial ECG Intervals DE 135 QRS 142 QT/QTC 380/439 Initial ECG Comparisson: Unchanged Comment INTERPRETED BY ME Diagnostic Imaging Comments CXR--PENDING RADIOLOGIST REVIEW -CHF -BILATERAL INFILTRATES -RIGHT PLEURAL EFFUSION Reviewed: Reviewed by Me Departure Communication (Admissions) 0349--SPOKE WITH DR. MCDUFFIE, HOSPITALIST FOR [facility], ACCEPTS PT FOR ADMIT. SHE WILL DO ADMIT ORDERS Impression Primary Impression: Acute on chronic respiratory failure with hypoxia and hypercapnia Additional Impressions: Acute on chronic diastolic CHF (congestive heart failure) Elevated troponin Chronic kidney disease (CKD) IDDM (insulin dependent diabetes mellitus) Sepsis Pneumonia Pleural effusion Disposition: ADMITTED INPATIENT Condition: Stable Admissions Decision to Admit Reason: Admit from ER (General) Decision to Admit/Date: Jun 08, 2023 Time/Decision to Admit Time: 04:55 Departure-Patient Inst. Referrals: MIKEY ZAZUETA APRN (PCP/Family) Primary Care Physician VICKEY JONES DO Jun 08, 2023 04:17
[2023-06-08 04:21] LABS: INR 1.1 (0.8-1.4); PROTHROMBIN TIME PATIENT 14.7 SEC (12.2-14.7)
[2023-06-08 04:21] LABS: ABG BASE EXCESS -0.2 MMOL/L (-2.5-2.5); ABG OXYGEN SATURATION 95 % (94-100); ABG PCO2 50 MMHG (35-45); ABG PO2 81 MMHG (79-93); ABG TCO2 26.2 MMOL/L (21.0-31.0)
[2023-06-08 04:30] LABS: ABG PH 7.32 (7.37-7.43); ALLENS TEST YES-POS; INSPIRED O2 40 L; PATIENT TEMP 38.3; VENTILATOR NO
[2023-06-08 04:31] LABS: ALBUMIN 3.1 GM/DL (3.2-4.5); BILIRUBIN,TOTAL 0.4 MG/DL (0.1-1.0); CALCIUM 9.1 MG/DL (8.5-10.1); CREATININE SERUM 2.08 MG/DL (0.60-1.30); MAGNESIUM 1.7 MG/DL (1.6-2.4); POTASSIUM 4.3 MMOL/L (3.6-5.0); TOTAL PROTEIN 7.4 GM/DL (6.4-8.2)
[2023-06-08 04:39] LABS: CREATINE KINASE MB 1.4 NG/ML (<6.6)
[2023-06-08 04:48] LABS: ANISOCYTOSIS SLIGHT; BAND NEUTROPHILS 6 %; ERYTHROCYTE SEDIMENTATION RATE > 140 MM/HR (0-30); LYMPHOCYTES % (MANUAL) 2 %; MONOCYTES % (MANUAL) 4 %; NEUTROPHILS % (MANUAL) 87 %; REACTIVE LYMPHOCYTES 1 %; SCHISTOCYTES SLIGHT
[2023-06-08 04:50] LABS: FIBRIN DEGRADATION PRODUCTS 3.7 UG/ML (0.00-0.49)
[2023-06-08] MEDS ORDERED: ENOXAPARIN 100 MG/1 ML SYRINGE SC ONE (05:00)
[2023-06-08] MEDS ORDERED: FUROSEMIDE INJECTION 40 MG/4 ML VIAL IVP ONE (05:00)
--- NOTE | 2023-06-08 05:48 | Tele-ICU Consult ---
History of Present Illness History of Present Illness Date Seen by Provider: Jun 08, 2023 Time Seen by Provider: 05:43 History of Present Illness eICU Critical Care Consult 72 yo M brought to ED with SOB, leg swelling, hypoxia with SpO2 in 70's, frequent admissions for same problem. PMH HLD, CHF, CAD with multiple stents, PAD, HTN, IDDM CKD, pt is smoker has LVEF 55%, supposed to be on DPT Started on IV Lasix, IV Medrol, IV Cefepime I reviewed CXR, shows elevated diaphragms, prom plum art, congestion and right mid lung infiltrate On BiPAP 16/05, rate 16, FIO2 40%, helping Allergies and Home Medications Allergies Coded Allergies: liraglutide (Verified Allergy, Unknown, 09/06/21) Home Medications Albuterol Sulfate 90 Mcg Hfa.aer.ad, 2 PUFF INH Q4H PRN for SHORTNESS OF BREATH Prescribed by: TRICIA BHATTI on 05/16/23 1325 Alogliptin Benzoate 6.25 Mg Tablet, 6.25 MG PO DAILY Prescribed by: TRICIA BHATTI on 05/16/23 1325 Amlodipine Besylate 5 Mg Tablet, 5 MG PO DAILY Prescribed by: TRICIA BHATTI on 05/16/23 1325 Aspirin 81 Mg Tablet.dr, 81 MG PO DAILY Prescribed by: TRICIA BHATTI on 05/16/23 132 Atorvastatin Calcium 40 Mg Tablet, 40 MG PO 1700 Prescribed by: TRICIA BHATTI on 05/16/23 1325 Budesonide/Glycopyr/Formoterol 160 Mcg-9 Mcg-4.8 Mcg/Actuation Hfa.aer.ad, 2 PUFF IH BID Prescribed by: TRICIA BHATTI on 05/16/23 1325 Cefdinir 300 Mg Capsule, 300 MG PO BID Prescribed by: TRICIA BHATTI on 05/16/23 1325 Clopidogrel Bisulfate 75 Mg Tablet, 75 MG PO DAILY Prescribed by: TRICIA BHATTI on 05/16/23 1325 Cyanocobalamin (Vitamin B-12) 1,000 Mcg Tablet, 1,000 MCG PO DAILY Prescribed by: TRICIA BHATTI on 05/16/23 1325 Fluticasone Propionate 50 Mcg/Actuation [place].susp, 1-2 SPRAY NSEACH DAILY Prescribed by: TRICIA BHATTI on 05/16/23 1325 Folic Acid 0.4 Mg Tablet, 0.4 MG PO DAILY Prescribed by: TRICIA BHATTI on 05/16/23 132 Furosemide 40 Mg Tablet, 40 MG PO BID Prescribed by: TRICIA BHATTI on 05/16/23 132 Insulin Determir 100 Unit/Ml Soln, 20 UNIT SQ BID Prescribed by: TRICIA BHATTI on 05/16/23 132 Metoprolol Succinate 50 Mg Tab.er.24h, 50 MG PO DAILY Prescribed by: TRICIA BHATTI on 05/16/23 132 Montelukast Sodium 10 Mg Tablet, 10 MG PO 1700 Prescribed by: TRICIA BHATTI on 05/16/23 132 Nitroglycerin 0.4 Mg Tab.subl, 0.4 MG SL UD PRN for CHEST PAIN Prescribed by: TRICIA BHATTI on 05/16/23 132 Pantoprazole Sodium 40 Mg Tablet.dr, 40 MG PO DAILY Prescribed by: TRICIA BHATTI on 05/16/23 132 Tamsulosin HCl 0.4 Mg Cap, 0.4 MG PO 1700 Prescribed by: TRICIA BHATTI on 05/16/23 132 Past Medical/Social/Family Hx Patient Social History Tobacco Use?: Yes Tobacco type used: Cigarettes Smoking Status: Current Everyday Smoker Substance use?: No Alcohol Use?: Yes Alcohol Frequency: Once in a while Pt stated abuse/neglect: No Immunizations Up To Date First/Initial COVID19 Vaccinat: NOVEMBER 2020, SHRUTHI [employer] SHR[employer]HI Second COVID19 Vaccination Nomi: NOVEMBER 2020, [employer]HI [employer] SHR[employer]HI Tetanus Booster (TDap): Unknown Hepatitis A: No Hepatitis B: No TB Skin Test: Negative Date of Pneumonia Vaccine: Jul 25, 2017 Current Status Advance Directives: No Communicates: Verbally Primary Language: Finnish Preferred Spoken Language: Finnish Is interpretation needed?: No Past Medical History COPD Diabetes Chronic kidney disease Hypertension Family Medical History Family Hx: SOCIAL HISTORY: -SMOKES 1 PPD -ETOH--OCCASIONAL USE -DRUGS--DENIES USE PAST SURGICAL HISTORY: -MULTIPLE CARDIAC CATHS AND PERIPHERAL ANGIOGRAMS WITH CAD AND PAD WITH MULTIPLE STENTS AND INTERVENTIONS -PAROTID GLAND BIOPSY -CHEST TUBE -- Echocardiogram of 02-26-[address] Pizarro showed LVEF 55-60% -- Cardiac cath of by Dr. Pizarro showed: Moderate disease in the mid right coronary artery with occlusion of the distal right PDA, small artery not amendable to intervention. Patent multiple stents in the proximal and mid LAD and proximal mid circumflex artery with mild to moderate in-stent restenosis and mild to moderate coronary artery disease in the left system nonobstructive disease. Normal left ventricular end-diastolic pressure - medical management advised at that time - continue antiplatelet therapy. Review of Systems Constitutional: see HPI EENTM: see HPI Respiratory: see HPI Cardiovascular: see HPI Gastrointestinal: see HPI Genitourinary: see HPI Musculoskeletal: see HPI Skin: see HPI Psychiatric/Neurological: Paresthesia Focused Exam Lactate Level 06/08/23 03:56: Lactic Acid Level 1.43 Height, Weight, BMI Height: 5'11.00" Weight: 225lbs. 0.0oz. 102.004121nu; 29.00 BMI Method:Stated Time of Focused Exam: 04:45 Lactic Acid Level Laboratory Tests Test 06/08/23 03:56 Lactic Acid Level 1.43 MMOL/L (0.50-2.00) Exam Exam Patient acknowledged, consented, and participated in this virtual visit which was conducted using real time audio/video Vital Signs Date Time Temp Pulse Resp B/P (MAP) Pulse Ox O2 Delivery O2 Flow Rate FiO2 06/08/23 05:05 38.2 112 24 124/55 96 NIV Bilevel 06/08/23 04:18 106 26 96 40.00 06/08/23 03:49 Nasal Cannula 4.00 06/08/23 03:49 38.3 118 26 121/76 (91) 96 NIV CPAP 4.00 06/08/23 03:49 NIV CPAP 40 I & O 06/08/23 06:59 Intake Total 50 ml Balance 50 ml Height & Weight Height: 5'11.00" Weight: 225lbs. 0.0oz. 102.214394qq; 29.00 BMI Method:Stated General Appearance: Mild Distress Respiratory: Lungs Clear, Decreased Breath Sounds, Rhonci, Other (INCREASED AERATION, DECREASED WHEEZING, NO DYSPNEA--ON BIPAP) Cardiovascular: Regular Rate, Rhythm, No JVD, Tachycardia (100-110) Capillary Refill: Less Than 3 Seconds Gastrointestinal: non tender, soft, other (mild LUQ on palpation 03/08) Extremity: Pedal Edema (+1 both legs) Neurologic/Psychiatric: Alert, No Motor/Sensory Deficits Results Lab Laboratory Tests 06/08/23 03:56 Assessment/Plan Assessment/Plan CHF, PNA, AECOPD continue IV Medrol, IV Cefepime, Continue BiPAP 16/05 spoke with rcp: Critically Ill Patient Time spent with patient (mins): 30 CAMERON CHEUNG MD Jun 08, 2023 05:48
[2023-06-08] MEDS ORDERED: PATIENT MAY USE OWN MEDS, ALL PO SCH (06:00)
[2023-06-08] MEDS ORDERED: MILK OF MAGNESIA 400 MG/5 ML 30 ML UDC PO PRN (06:00)
[2023-06-08] MEDS ORDERED: NS IV 500 ML 500 ML IV PRN (06:00)
[2023-06-08] MEDS ORDERED: LIDOCAINE UROJET 2% GEL 10 ML PKG TOP ONE ×2 (06:00→10:15)
[2023-06-08] MEDS ORDERED: ANTACID SUSPENSION 30 ML UDC PO PRN (06:00)
[2023-06-08] MEDS ORDERED: diphenhydrAMINE 25 MG TABLET PO PRN (06:00)
[2023-06-08] MEDS ORDERED: LACTULOSE SYRUP 10GM/15ML 30ML UDC PO PRN (06:00)
[2023-06-08] MEDS ORDERED: CALCIUM CARBONATE 500 MG CHEW TABLET PO PRN (06:00)
[2023-06-08] MEDS ORDERED: oxyCODONE IMMEDIATE RELEASE 5 MG TABLET PO PRN (06:00)
[2023-06-08] MEDS ORDERED: ONDANSETRON 4 MG ORAL DISSOLVE TABLET PO PRN (06:00)
[2023-06-08] MEDS ORDERED: PHARMACY TO DOSE IV SCH (06:00)
[2023-06-08] MEDS ORDERED: BISACODYL 10 MG SUPPOSITORY PR PRN (06:00)
[2023-06-08] MEDS ORDERED: LORazepam 0.5 MG TABLET PO PRN (06:00)
[2023-06-08] MEDS ORDERED: ONDANSETRON INJECTION 4 MG/2 ML (SDV) IV PRN (06:00)
[2023-06-08] MEDS ORDERED: diphenhydrAMINE INJ 50 MG/ML VIAL IVP PRN (06:00)
[2023-06-08] MEDS ORDERED: ACETAMINOPHEN 325 MG TABLET PO PRN (06:00)
[2023-06-08] MEDS ORDERED: HYDROmorphone INJECTION 2 MG/ML VIAL IV PRN (06:00)
[2023-06-08 06:17] VITALS: BP 106/47
--- NOTE | 2023-06-08 06:17 | History & Physical-Hospitalist ---
History of Present Illness Source: patient, family, RN/MD, old records Exam Limitations: clinical condition Date Seen 06/08/23 Time Seen by a Provider: 11:00 Attending Physician Jasmin Bland Aprn PCP Admitting Physician: Ct Sabillon DO Attending Physician: Ct Sabillon DO Referring Physician Date of Admission Jun 08, 2023 at 05:08 Home Medications & Allergies Home Medications Reviewed patient Home Medication Reconciliation performed by pharmacy medication reconciliations windows deployment technician and/or nursing. Patients Allergies have been reviewed. Allergies Allergies Coded Allergies liraglutide (Verified Allergy, Unknown, 09/06/21) Past Rxqchce-Lpqite-Fsmdey Hx Patient Social History Tobacco Use?: Yes Tobacco type used: Cigarettes Smoking Status: Current Everyday Smoker Substance use?: No Alcohol Use?: Yes Alcohol Frequency: Once in a while Pt feels they are or have been: No Immunizations Up To Date Date of Influenza Vaccine: Jul 08, 2021 First/Initial COVID19 Vaccinat: NOVEMBER 2020, SHRUTHI AND SH[employer]HI Second COVID19 Vaccination Nomi: NOVEMBER 2020, SHRUTHI AND SHRUTHI Tetanus Booster (TDap): Unknown Hepatitis A: No Hepatitis B: No PED Vaccines UTD: Yes Date of Pneumonia Vaccine: Jul 25, 2017 Seasonal Allergies Seasonal Allergies: No Current Status Advance Directives: No Communicates: Verbally Primary Language: Latvian Preferred Spoken Language: Latvian Is interpretation needed?: No Past Medical History Surgeries: Cardiac, Coronary Stent, Vascular Surgery Pneumonia, COPD Currently Using CPAP: No Currently Using BIPAP: No Chronic Edema/Swelling, Coronary Artery Disease, Heart Attack, High Cholesterol, Hypertension, Peripheral Vascular Neuropathy Renal Failure Hepatitis, Polyps Degenerate Disk Disease, Arthritis, Chronic Back Pain Diabetes, Insulin dep Cataract, Macular Degeneration Blood Disorders: No COPD Diabetes Chronic kidney disease Hypertension Family Medical History Patient reports no known family medical history. No Pertinent Family Hx SOCIAL HISTORY: -SMOKES 1 PPD -ETOH--OCCASIONAL USE -DRUGS--DENIES USE PAST SURGICAL HISTORY: -MULTIPLE CARDIAC CATHS AND PERIPHERAL ANGIOGRAMS WITH CAD AND PAD WITH MULTIPLE STENTS AND INTERVENTIONS -PAROTID GLAND BIOPSY -CHEST TUBE -- Echocardiogram of 02-26-[address] Pizarro showed LVEF 55-60% -- Cardiac cath of by Dr. Pizarro showed: Moderate disease in the mid right coronary artery with occlusion of the distal right PDA, small artery not amendable to intervention. Patent multiple stents in the proximal and mid LAD and proximal mid circumflex artery with mild to moderate in-stent restenosis and mild to moderate coronary artery disease in the left system nonobstructive disease. Normal left ventricular end-diastolic pressure - medical management advised at that time - continue antiplatelet therapy. Physical Exam Physical Exam Vital Signs Vital Signs - First Documented 06/08/23 03:49 Temp 38.3 Pulse 118 Resp 26 B/P (MAP) 121/76 (91) Pulse Ox 96 O2 Delivery NIV CPAP O2 Flow Rate 4.00 FiO2 40 Capillary Refill : Less Than 3 Seconds Height, Weight, BMI Height: 5'11.00" Weight: 225lbs. 0.0oz. 102.264222lf; 28.81 BMI Method:Stated Results Results/Procedures Labs Laboratory Tests 06/08/23 03:56 Patient resulted labs reviewed. CT SABILLON DO Jun 08, 2023 06:17
[2023-06-08] MEDS ORDERED: RT-Ipratropium/Albuterol NEB 3 ML VIAL INH PRN (06:30)
[2023-06-08] MEDS ORDERED: RT-Ipratropium/Albuterol NEB 3 ML VIAL ONE (06:45)
[2023-06-08] MEDS: POTASSIUM CL 10MEQ/50ML IVPB 50 ML IV SCH (06:51)
[2023-06-08] MEDS: MAGNESIUM 1 GM/100 ML IVPB 100 ML IV SCH (06:52)
[2023-06-08] MEDS: POTASSIUM CHLORIDE 20 MEQ TABLET PO SCH (06:52)
[2023-06-08] MEDS: inSUlin ASPART 1 UNIT/0.01 ML (PER UNIT) SC SCH ×4 (06:53→20:29)
--- NOTE | 2023-06-08 07:39 | Diagnostic Imaging Report ---
INDICATION: Dyspnea. COMPARISON: 05/18/2023. DISCUSSION: Single portable upright view of the chest was obtained. Bilateral consolidation is essentially stable. Elevated right hemidiaphragm. Heart borders are mostly obscured. Pleural thickening along the right lung apex is stable. No pneumothorax or osseous abnormality. IMPRESSION: 1. Stable chest. Dictated by: Dictated on workstation # [id number]
[2023-06-08] MEDS ORDERED: VANCOMYCIN 1250MG/250ML PREMIX 250 ML IV SCH (08:00)
--- NOTE | 2023-06-08 08:04 | History & Physical-Hospitalist ---
CHAVA MARINELLI MD 06/08/23 0804: History of Present Illness HPI/Chief Complaint 72 yo male with medical hx significant for COPD, CAD, multiple admissions for hypoxia, here for COPD exacerbation 2/2 to COVID-19 infection. He reports that he was recently [facility] from a [facility] and yesterday morning he felt increased SOB and increased his home O2 requirement. He presented to the ED where he was found to be COVID positive. CXR congestion and right mid lung infiltrate. EKG LBBB (similar to previous), WBC, CRP, troponins elevated. He was admitted to the ICU for further care. Source: patient Date Seen 06/08/23 Time Seen by a Provider: 10:00 Attending Physician Jasmin Bland Aprn PCP Admitting Physician: Ct Mcduffie DO Attending Physician: Ct Mcduffie DO Referring Physician Date of Admission Jun 08, 2023 at 05:08 Home Medications & Allergies Home Medications Reviewed patient Home Medication Reconciliation performed by pharmacy medication reconciliations breeder service technician and/or nursing. Patients Allergies have been reviewed. Allergies Allergies Coded Allergies liraglutide (Verified Allergy, Unknown, 09/06/21) Past Jvogjjo-Xkkuic-Rvcsgz Hx Patient Social History Tobacco Use?: No Tobacco type used: Cigarettes Smoking Status: Former Smoker Substance use?: No Alcohol Use?: No Alcohol Frequency: Once in a while Pt feels they are or have been: No Immunizations Up To Date Date of Influenza Vaccine: Jul 08, 2021 First/Initial COVID19 Vaccinat: NOVEMBER 2020, SHRUTHI AND SHR[employer]HI Second COVID19 Vaccination Nomi: NOVEMBER 2020, SHRUTHI AND SHRUTHI Tetanus Booster (TDap): Unknown Hepatitis A: No Hepatitis B: No PED Vaccines UTD: Yes Date of Pneumonia Vaccine: Jul 25, 2017 Seasonal Allergies Seasonal Allergies: No Current Status Advance Directives: Unable to obtain Communicates: Verbally Primary Language: Telugu Preferred Spoken Language: Telugu Is interpretation needed?: No Sensory deficits: Vision impairment Additional sensory deficits: galsses at bedside Past Medical History Surgeries: Cardiac, Coronary Stent, Vascular Surgery Pneumonia, COPD Currently Using CPAP: No Currently Using BIPAP: No Chronic Edema/Swelling, Coronary Artery Disease, Heart Attack, High Cholesterol, Hypertension, Peripheral Vascular Neuropathy Renal Failure Hepatitis, Polyps Degenerate Disk Disease, Arthritis, Chronic Back Pain Diabetes, Insulin dep Cataract, Macular Degeneration Blood Disorders: No COPD Diabetes Chronic kidney disease Hypertension Family Medical History Patient reports no known family medical history. No Pertinent Family Hx SOCIAL HISTORY: -SMOKES 1 PPD -ETOH--OCCASIONAL USE -DRUGS--DENIES USE PAST SURGICAL HISTORY: -MULTIPLE CARDIAC CATHS AND PERIPHERAL ANGIOGRAMS WITH CAD AND PAD WITH MULTIPLE STENTS AND INTERVENTIONS -PAROTID GLAND BIOPSY -CHEST TUBE -- Echocardiogram of 02-26-[address] Pizarro showed LVEF 55-60% -- Cardiac cath of by Dr. Pizarro showed: Moderate disease in the mid right coronary artery with occlusion of the distal right PDA, small artery not amendable to intervention. Patent multiple stents in the proximal and mid LAD and proximal mid circumflex artery with mild to moderate in-stent restenosis and mild to moderate coronary artery disease in the left system nonobstructive disease. Normal left ventricular end-diastolic pressure - medical management advised at that time - continue antiplatelet therapy. Review of Systems Constitutional: malaise, weakness EENTM: no symptoms reported Respiratory: see HPI, cough, short of breath, wheezing Cardiovascular: Hx of Intervention Musculoskeletal: no symptoms reported Skin: no symptoms reported Physical Exam Physical Exam Vital Signs Vital Signs - First Documented 06/08/23 03:49 Temp 38.3 Pulse 118 Resp 26 B/P (MAP) 121/76 (91) Pulse Ox 96 O2 Delivery NIV CPAP O2 Flow Rate 4.00 FiO2 40 Capillary Refill : Less Than 3 Seconds Height, Weight, BMI Height: 5'11.00" Weight: 225lbs. 0.0oz. 102.185884dy; 28.81 BMI Method:Stated General Appearance: Mild Distress Eyes: Bilateral Eye EOMI HEENT: Moist Mucous Membranes Neck: Full Range of Motion Respiratory: Rhonci, Wheezing Cardiovascular: Regular Rate, Rhythm Gastrointestinal: Non Tender Extremity: No Calf Tenderness, Pedal Edema Neurologic/Psychiatric: Alert, Oriented x3, Normal Mood/Affect Skin: Warm/Dry Results Results/Procedures Labs Laboratory Tests 06/08/23 03:56 Patient resulted labs reviewed. Assessment/Plan Admission Diagnosis COVID-19 Admission Status: Inpatient Order (span 2 midnights) Reason for Inpatient Admission: COPD exacerbation 2/2 COVID-19 Diagnosis/Problems Diagnosis/Problems (1) COVID Status: Acute (2) SOB (shortness of breath) (3) Acute and chronic respiratory failure Status: Acute Assessment & Plan: COPD exacerbation likely 2/2 to COVID-19 vs PNA PLAN: BiPAP support dexamethasone duonebs, RT protocol vancomycin cefepime (4) COPD (chronic obstructive pulmonary disease) Onset Date: Unknown Status: Chronic (5) Peripheral edema Status: Acute (6) Acute on chronic diastolic CHF (congestive heart failure) Status: Acute Assessment & Plan: Increased peripheral edema Hazy cardiac silhouette on CXR PLAN: Cardiology consult Consider diuresis for volume overload CT MCDUFFIE DO 06/08/23 2017: History of Present Illness HPI/Chief Complaint CC: Acute on chronic hypoxic resp failure with COVID HPI: This is a 72yoWM known to me from multiple admits for CHF and BHAVANA/CKD and severe COPD who just DC home from [facility] on but became ill and short of breath requiring ER visit found to have AECOPD with COVID. Source: patient Exam Limitations: no limitations Past Ydpehcm-Qruziv-Cawxlb Hx Patient Social History Marrital Status: Employed/Student: retired Smoking Status: Former Smoker Past Medical History Pneumonia, COPD Family Medical History Patient reports no known family medical history. Review of Systems Constitutional: see HPI, malaise, weakness Respiratory: dyspnea on exertion, short of breath Physical Exam Physical Exam General Appearance: No Apparent Distress, Chronically ill Respiratory: Decreased Breath Sounds Cardiovascular: Regular Rate, Rhythm Assessment/Plan Admission Diagnosis Admission Status: Inpatient Order (span 2 midnights) Reason for Inpatient Admission: AECOPD with COVID CHAVA MARINELLI MD Jun 08, 2023 08:04 CT MCDUFFIE DO Jun 08, 2023 20:17
[2023-06-08] MEDS: ENOXAPARIN 40 MG/0.4 ML SYRINGE SC SCH (08:49)
[2023-06-08] MEDS: dexAMETHasone INJ 4 MG/ML SDV IV SCH ×2 (08:50→20:27)
[2023-06-08] MEDS: ASPIRIN 81 MG CHEWABLE TABLET PO SCH (08:51)
[2023-06-08] MEDS: FUROSEMIDE INJECTION 40 MG/4 ML VIAL IV SCH ×2 (08:51→20:27)
[2023-06-08] MEDS: SENNOSIDES 8.6 MG TABLET PO SCH ×2 (08:51→20:12)
[2023-06-08] MEDS: DOCUSATE SODIUM 100 MG CAPSULE PO SCH ×2 (08:51→20:10)
[2023-06-08] MEDS ORDERED: LIDOCAINE UROJET 2% GEL 10 ML PKG ONE (08:59)
[2023-06-08] MEDS ORDERED: CEFEPIME INJECTION 2,000 MG in NS (IVPB) 50 ML 50 ML IV SCH (09:00)
[2023-06-08] MEDS ORDERED: RT-Ipratropium/Albuterol NEB 3 ML VIAL INH SCH (10:00)
[2023-06-08] MEDS: RT-ALBUTEROL HFA 8.5 GM INHALER IH SCH ×4 (11:08→22:45)
[2023-06-08] MEDS: CEFEPIME 1,000 MG/NS 50 ML IVPB IV SCH ×4 (13:17→19:38)
--- NOTE | 2023-06-08 13:49 | Consultation-Cardiology ---
HPI-Cardiology Cardiology Consultation: Date of Consultation 06/08/23 Date of Admission Attending Physician Jasmin Bland Aprn Admitting Physician Admitting Physician: Ct Sabillon DO Attending Physician: Ct Sabillon DO Consulting Physician Demetri PALACIOS MD HPI: Time Seen by a Provider: 13:49 Chief Complaint: shortness of breath 72 year old male with history of cad, pad, chf, copd, presents with shortness of breath and hypoxia. active smoker. DM, CKD. Review of Systems-Cardiology Review of Systems Constitutional: tiredness Eyes: no symptoms reported Ears/Nose/Throat: no symptoms reported Respiratory: shortness of breath Cardiovascular: no symptoms reported Gastrointestinal: no symptoms reported Musculoskeletal: no symptoms reported Skin: no symptoms reported Psychiatric/Neurological: no symptoms reported OLR-Hfaadn-Chvvkg Hx Patient Social History Smoking Status: Former Smoker Alcohol Use?: No Pt feels they are or have been: No Tobacco type used: Cigarettes Immunizations Up To Date Tetanus Booster (TDap): Unknown Date of Pneumonia Vaccine: Jul 25, 2017 Date of Influenza Vaccine: Jul 08, 2021 Past Medical History PMH As described under Assessment. Family Medical History Family Medical History: He previously does not report fam h/o early CAD Family History: Patient reports no known family medical history. Allergies and Home Medications Allergies Coded Allergies: liraglutide (Verified Allergy, Unknown, 09/06/21) Patient Home Medication List Home Medication List Reviewed: Yes Albuterol Sulfate (Ventolin Hfa) 90 Mcg Hfa.aer.ad, 2 PUFF INH Q4H PRN for SHORTNESS OF BREATH Prescribed by: TRICIA BHATTI on 05/16/23 1325 Alogliptin Benzoate (Nesina) 6.25 Mg Tablet, 6.25 MG PO DAILY Prescribed by: TRICIA BHATTI on 05/16/23 132 Amlodipine Besylate (Amlodipine Besylate) 5 Mg Tablet, 5 MG PO DAILY Prescribed by: TRICIA BHATTI on 05/16/23 132 Aspirin (Aspirin EC) 81 Mg Tablet.dr, 81 MG PO DAILY Prescribed by: TRICIA BHATTI on 05/16/23 132 Atorvastatin Calcium (Lipitor) 40 Mg Tablet, 40 MG PO 1700 Prescribed by: RTICIA BHATTI on 05/16/23 1325 Budesonide/Glycopyr/Formoterol (Breztri Aerosphere Inhaler) 160 Mcg-9 Mcg-4.8 Mcg/Actuation Hfa.aer.ad, 2 PUFF IH BID Prescribed by: TRICIA BHATTI on 05/16/23 132 Cefdinir (Cefdinir) 300 Mg Capsule, 300 MG PO BID Prescribed by: TRICIA BHATTI on 05/16/23 132 Clopidogrel Bisulfate (Clopidogrel) 75 Mg Tablet, 75 MG PO DAILY Prescribed by: TRICIA BHATTI on 05/16/23 132 Cyanocobalamin (Vitamin B-12) (Vitamin B-12) 1,000 Mcg Tablet, 1,000 MCG PO DAILY Prescribed by: TRICIA BHATTI on 05/16/23 132 Fluticasone Propionate (Flonase Allergy Relief) 50 Mcg/Actuation [place].susp, 1-2 SPRAY NSEACH DAILY Prescribed by: TRICIA BHATTI on 05/16/231324 Folic Acid (Folic Acid) 0.4 Mg Tablet, 0.4 MG PO DAILY Prescribed by: TRICIA BHATTI on 05/16/23 132 Furosemide (Furosemide) 40 Mg Tablet, 40 MG PO BID Prescribed by: TRICIA BHATTI on 05/16/23 132 Insulin Determir (Levemir) 100 Unit/Ml Soln, 20 UNIT SQ BID Prescribed by: TRICIA BHATTI on 05/16/23 132 Metoprolol Succinate (Metoprolol Succinate) 50 Mg Tab.er.24h, 50 MG PO DAILY Prescribed by: TRICIA BHATTI on 05/16/23 132 Montelukast Sodium (Montelukast Sodium) 10 Mg Tablet, 10 MG PO 1700 Prescribed by: TRICIA BHATTI on 05/16/23 132 Nitroglycerin (Nitroglycerin) 0.4 Mg Tab.subl, 0.4 MG SL UD PRN for CHEST PAIN Prescribed by: TRICIA BHATTI on 05/16/23 132 Pantoprazole Sodium (Pantoprazole Sodium) 40 Mg Tablet.dr, 40 MG PO DAILY Prescribed by: TRICIA BHATTI on 05/16/23 132 Tamsulosin HCl (Flomax) 0.4 Mg Cap, 0.4 MG PO 1700 Prescribed by: TRICIA BHATTI on 8/18/23 1325 Exam Vital Signs Vital Signs Date Time Temp Pulse Resp B/P (MAP) Pulse Ox O2 Delivery O2 Flow Rate FiO2 06/08/23 19:00 100 06/08/23 18:43 90 High Flow N/C 6.00 06/08/23 18:00 127/64 (87) 06/08/23 16:00 36.6 06/08/23 07:06 31 06/08/23 06:17 40 Physical Exam constitutional exam- mild respiratory distress Chest: mild respiratory distress. labored breathing CVS: RRR no pedal edema Labs Laboratory Tests Test 06/08/23 03:49 06/08/23 03:55 06/08/23 03:56 06/08/23 11:22 Range/Units Blood Gas Puncture Site LEFT RADIAL Blood Gas Patient Temperature 38.3 Arterial Blood pH 7.32 *L 7.37-7.43 Arterial Blood Partial Pressure CO2 50 H 35-45 MMHG Arterial Blood Partial Pressure O2 81 79-93 MMHG Arterial Blood HCO3 25 23-27 MMOL/L Arterial Blood Total CO2 26.2 21.0-31.0 MMOL/L Arterial Blood Oxygen Saturation 95 94-100 % Arterial Blood Base Excess -0.2 -2.5-2.5 MMOL/L Howie Test YES-POS Blood Gas Ventilator Setting NO Blood Gas Inspired Oxygen 40 L Influenza Type A (RT-PCR) Not Detected Not Detecte Influenza Type B (RT-PCR) Not Detected Not Detecte SARS-CoV-2 RNA (RT-PCR) Detected H Not Detecte White Blood Count 18.2 H 4.3-11.0 10^3/uL Red Blood Count 3.45 L 4.30-5.52 10^6/uL Hemoglobin 9.3 L 13.3-17.7 g/dL Hematocrit 30 L 40-54 % Mean Corpuscular Volume 87 80-99 fL Mean Corpuscular Hemoglobin 27 25-34 pg Mean Corpuscular Hemoglobin Concent 31 L 32-36 g/dL Red Cell Distribution Width 15.9 H 10.0-14.5 % Platelet Count 308 130-400 10^3/uL Mean Platelet Volume 10.5 9.0-12.2 fL Immature Granulocyte % (Auto) 1 % Neutrophils (%) (Auto) 85 H 42-75 % Lymphocytes (%) (Auto) 6 L 12-44 % Monocytes (%) (Auto) 8 0-12 % Eosinophils (%) (Auto) 0 0-10 % Basophils (%) (Auto) 0 0-10 % Neutrophils # (Auto) 15.5 H 1.8-7.8 10^3/uL Lymphocytes # (Auto) 1.0 1.0-4.0 10^3/uL Monocytes # (Auto) 1.4 H 0.0-1.0 10^3/uL Eosinophils # (Auto) 0.0 0.0-0.3 10^3/uL Basophils # (Auto) 0.1 0.0-0.1 10^3/uL Immature Granulocyte # (Auto) 0.2 H 0.0-0.1 10^3/uL Neutrophils % (Manual) 87 % Lymphocytes % (Manual) 2 % Monocytes % (Manual) 4 % Band Neutrophils 6 % Reactive Lymphocytes 1 % Anisocytosis SLIGHT Schistocytes SLIGHT Erythrocyte Sedimentation Rate > 140 H 0-30 MM/HR Prothrombin Time 14.7 12.2-14.7 SEC INR Comment 1.1 0.8-1.4 Activated Partial Thromboplast Time 30 24-35 SEC D-Dimer 3.70 H 0.00-0.49 UG/ML Sodium Level 140 135-145 MMOL/L Potassium Level 4.3 3.6-5.0 MMOL/L Chloride Level 100 98-107 MMOL/L Carbon Dioxide Level 22 21-32 MMOL/L Anion Gap 18 H 5-14 MMOL/L Blood Urea Nitrogen 31 H 7-18 MG/DL Creatinine 2.08 H 0.60-1.30 MG/DL Estimat Glomerular Filtration Rate 34 BUN/Creatinine Ratio 15 Glucose Level 142 H 70-105 MG/DL Lactic Acid Level 1.43 0.50-2.00 MMOL/L Calcium Level 9.1 8.5-10.1 MG/DL Corrected Calcium 9.8 8.5-10.1 MG/DL Magnesium Level 1.7 1.6-2.4 MG/DL Total Bilirubin 0.4 0.1-1.0 MG/DL Aspartate Amino Transf (AST/SGOT) 15 5-34 U/L Alanine Aminotransferase (ALT/SGPT) 9 0-55 U/L Alkaline Phosphatase 78 40-136 U/L Total Creatine Kinase 40 30-200 U/L Creatine Kinase MB 1.4 <6.6 NG/ML Myoglobin 194.4 H 10.0-92.0 NG/ML Troponin I 0.152 H <0.028 NG/ML C-Reactive Protein High Sensitivity 10.06 H 0.00-0.50 MG/DL B-Type Natriuretic Peptide 1002.7 H <100.0 PG/ML Total Protein 7.4 6.4-8.2 GM/DL Albumin 3.1 L 3.2-4.5 GM/DL Glucometer 242 H 70-110 MG/DL Test 06/08/23 16:02 06/08/23 20:24 Range/Units Glucometer 242 H 286 H 70-110 MG/DL ECG Impression ECG Initial ECG Rhythm: S.Tach Comment sinus tachycardia, LBBB A/P-Cardiology Assessment/Admission Diagnosis Covid pneumona sepsis acute respiratory failure cad pad acute on chronic diastolic CHF smoker Plan acute respiratory failure - covid, sepsis, pneumonia - defer to the primary team cad- mild elevated troponin; type II AR pad- no acute issues active smoking - acute on chronic CHF - lasix CKD Demetri PALACIOS MD Jun 08, 2023 13:49
[2023-06-08] MEDS: guaiFENesin 600 MG TABLET PO PRN (16:26)
[2023-06-09] MEDS: CEFEPIME 1,000 MG/NS 50 ML IVPB IV SCH ×4 (03:46→17:24)
[2023-06-09] MEDS: RT-ALBUTEROL HFA 8.5 GM INHALER IH SCH ×6 (03:53→22:36)
[2023-06-09 04:46] LABS: BASOPHILS % (AUTO) 0 % (0-10); EOSINOPHILS % (AUTO) 0 % (0-10); HEMATOCRIT 25 % (40-54); HEMOGLOBIN 7.7 g/dL (13.3-17.7); LYMPHOCYTES # (AUTO) 0.9 10^3/uL (1.0-4.0); LYMPHOCYTES % (AUTO) 4 % (12-44); MEAN CORPUSCULAR HEMOGLOBIN 26 pg (25-34); MEAN CORPUSCULAR HGB CONC 31 g/dL (32-36); MEAN CORPUSCULAR VOLUME 86 fL (80-99); MEAN PLATELET VOLUME 10.5 fL (9.0-12.2); MONOCYTES # (AUTO) 0.8 10^3/uL (0.0-1.0); MONOCYTES % (AUTO) 4 % (0-12); NEUTROPHILS # (AUTO) 19.8 10^3/uL (1.8-7.8); NEUTROPHILS % (AUTO) 91 % (42-75); PLATELET COUNT 304 10^3/uL (130-400); WHITE BLOOD COUNT 21.7 10^3/uL (4.3-11.0)
[2023-06-09 05:14] LABS: ALBUMIN 2.8 GM/DL (3.2-4.5); BILIRUBIN,TOTAL 0.2 MG/DL (0.1-1.0); CALCIUM 8.1 MG/DL (8.5-10.1); CREATININE SERUM 2.5 MG/DL (0.60-1.30); MAGNESIUM 1.7 MG/DL (1.6-2.4); PHOSPHORUS 4.7 MG/DL (2.3-4.7); POTASSIUM 3.8 MMOL/L (3.6-5.0); TOTAL PROTEIN 6.4 GM/DL (6.4-8.2)
[2023-06-09] MEDS ORDERED: MAGNESIUM 2 GM/50 ML IVPB 50 ML IV ONE (05:30)
--- NOTE | 2023-06-09 05:42 | Tele-ICU Progress Note ---
Progress Note TeleeICU Called by nursing for pt c/o transient left chest pain . Pt admitted on 06/08 with acute reoiratory distress and PNA due to COVID. PMHx: CHF, COPD on home O2 , CAD and s/p multiple stents, cigarette abuse. Last ECHO 02/18 reoprted EF 55-60% Labs remarkable for markedly elevated ESR at 140, CBC WBCs 21,700 Hgb 7.7 Plts 304,000 DDimer 3.70 COVID + initial trop 0.152 BUN 31 Cr 2.08 EKG on admit LBBB, sinus Obtained stat EKG shows sinus, LBBB Current VS HR 74 sinus 138/76 100% sats on 35% FiO2 on BiPAP Repat AM labs are remarkable for the fall in Hgb from 9.3 to 7.7 (no evidence of bleeding per nursing), BUN up to 45 from 31 and Creatinine 2.5 from 2.08 A: 1--Chest pain , now resolved with elevated ESR may be related to COVID + Pneumonia 2-Anemia- fall in Hgb to 7.7 3- Acute kidney injury P: 1-Added troponin and CK to AM labs-2-Type and screen and repeat CBC Cardiology, nephrology following and to be notified with results in AM. Focused Exam Lactate Level 06/08/23 03:56: Lactic Acid Level 1.43 Height, Weight, BMI Height: 5'11.00" Weight: 225lbs. 0.0oz. 102.361733rj; 28.81 BMI Method:Stated Time of Focused Exam: 04:45 RIANNA CROUCH DO Jun 09, 2023 05:42
[2023-06-09 05:49] LABS: BAND NEUTROPHILS 16 %; LYMPHOCYTES % (MANUAL) 2 %; MONOCYTES % (MANUAL) 5 %; NEUTROPHILS % (MANUAL) 75 %; REACTIVE LYMPHOCYTES 2 %
[2023-06-09 05:51] LABS: ANISOCYTOSIS MODERATE; SCHISTOCYTES SLIGHT
[2023-06-09] MEDS: POTASSIUM CHLORIDE 20 MEQ TABLET PO SCH (06:22)
[2023-06-09] MEDS: POTASSIUM CL 10MEQ/50ML IVPB 50 ML IV SCH (06:22)
[2023-06-09] MEDS: MAGNESIUM 1 GM/100 ML IVPB 100 ML IV SCH ×2 (06:22→06:38)
[2023-06-09] MEDS: inSUlin ASPART 1 UNIT/0.01 ML (PER UNIT) SC SCH ×4 (06:38→21:43)
[2023-06-09] MEDS: ENOXAPARIN 40 MG/0.4 ML SYRINGE SC SCH (06:52)
[2023-06-09 07:13] LABS: BASOPHILS % (AUTO) 0 % (0-10); EOSINOPHILS % (AUTO) 0 % (0-10); HEMATOCRIT 24 % (40-54); HEMOGLOBIN 7.4 g/dL (13.3-17.7); LYMPHOCYTES # (AUTO) 0.9 10^3/uL (1.0-4.0); LYMPHOCYTES % (AUTO) 4 % (12-44); MEAN CORPUSCULAR HEMOGLOBIN 27 pg (25-34); MEAN CORPUSCULAR HGB CONC 31 g/dL (32-36); MEAN CORPUSCULAR VOLUME 86 fL (80-99); MEAN PLATELET VOLUME 10.4 fL (9.0-12.2); MONOCYTES % (AUTO) 4 % (0-12); NEUTROPHILS # (AUTO) 20.2 10^3/uL (1.8-7.8); NEUTROPHILS % (AUTO) 91 % (42-75); PLATELET COUNT 326 10^3/uL (130-400); WHITE BLOOD COUNT 22.3 10^3/uL (4.3-11.0)
[2023-06-09] MEDS: SENNOSIDES 8.6 MG TABLET PO SCH ×2 (08:59→21:44)
[2023-06-09] MEDS: DOCUSATE SODIUM 100 MG CAPSULE PO SCH ×2 (08:59→21:44)
--- NOTE | 2023-06-09 09:16 | Cardiology Progress Note ---
Subjective Date Seen by Provider: Jun 09, 2023 Time Seen by Provider: 09:11 Subjective/Events-last exam Patient was seen at bedside, laying down in bed comfortably Denied any active chest pain but reported some chest pain yesterday. Review of Systems General: No Chills, No Night Sweats; Fatigue; No Malaise, No Appetite, No Other HEENT: No Head Aches, No Visual Changes, No Eye Pain, No Ear Pain, No Dysphasia, No Sinus Congestion, No Post Nasal Drip, No Sore Throat, No Other Pulmonary: Dyspnea; No Cough, No Pleuritic Chest Pain, No Other Cardiovascular: No: Chest Pain, Palpitations, Orthopnea, Paroxysmal Noc. Dyspnea, Edema, Lt Headedness, Other Focused Exam Lactate Level 06/08/23 03:56: Lactic Acid Level 1.43 Time of Focused Exam: 04:45 Objective-Cardiology Exam Last Set of Vital Signs Vital Signs 06/08/23 06/09/23 16:00 08:00 Temp 36.6 Pulse 72 B/P (MAP) 129/66 (87) Pulse Ox 100 O2 Delivery High Flow N/C O2 Flow Rate 6.00 I&O Intake and Output 06/09/23 00:00 Intake Total 2050 ml Output Total 1300 ml Balance 750 ml Intake Oral 1950 ml IV Total 100 ml Output Urine Total 1300 ml Daily Weight Change No General: Alert, Oriented X3, Cooperative HEENT: Atraumatic, PERRLA Neck: Supple, No JVD, No Thyromegaly Lungs: Clear to Auscultation, Normal Air Movement Heart: Regular Rate, Normal S1, Normal S2, No Murmurs Abdomen: Normal Bowel Sounds, Soft, No Tenderness, No Hepatosplenomegaly, No Masses Extremities: No Clubbing, No Cyanosis, No Edema, Normal Pulses, No Tenderness/Swelling Skin: No Rashes, No Breakdown, No Significant Lesion Neuro: Normal Gait, Normal Speech, Strength at 5/5 X4 Ext, Normal Tone, Sensation Intact Psych/Mental Status: Mental Status NL, Mood NL Results Lab Laboratory Tests 06/09/23 04:25 06/09/23 06:26 A/P-Cardiology Admission Diagnosis Acute respiratory failure Non-ST elevation myocardial infarction COVID-19 pneumonia Coronary artery disease Assessment/Plan Acute respiratory insufficiency, COVID-19 pneumonia Persistent leukocytosis Improving slowly Non-ST elevation myocardial infarction, underlying chronic left bundle branch block Conservative management is recommended Coronary artery disease, cardiac catheterization was done in April 2021 with moderate disease in the mid right coronary artery with occlusion at the distal right PDA that is a small vessel not amendable to intervention, had multiple stents in the proximal and mid LAD and proximal and mid circumflex artery and they were patent. Mild to moderate in-stent restenosis. His troponin elevation is probably due to the occluded right PDA and small vessel disease. Conservative management is recommended. Anemia, worsening H&H, cannot tolerate aggressive anticoagulation Maintain on PPI and I will add aspirin 81 mg daily and monitor tolerance and response Hypertension, continue to monitor blood pressure Chronic kidney disease stage IV, monitor renal function Chronic left bundle branch block Peripheral arterial disease, chronic pedal edema. Hyperlipidemia, monitor lipids Diabetes mellitus, followed and managed by primary care physician History of chronic back pain FADUMO TALAVERA MD Jun 09, 2023 09:16
[2023-06-09] MEDS: FUROSEMIDE INJECTION 40 MG/4 ML VIAL IV SCH ×2 (09:31→21:44)
[2023-06-09] MEDS: ASPIRIN 81 MG CHEWABLE TABLET PO SCH (09:31)
[2023-06-09] MEDS: VANCOMYCIN 1 GM/NS 250 ML IVPB IV SCH ×2 (09:32)
[2023-06-09] MEDS: dexAMETHasone INJ 4 MG/ML SDV IV SCH ×2 (09:34→21:44)
[2023-06-09] MEDS: PANTOPRAZOLE 40 MG TABLET PO SCH (09:39)
[2023-06-09] MEDS: ASPIRIN enteric coated 81MG TABLET PO SCH (10:03)
--- NOTE | 2023-06-09 11:29 | Tele-ICU Progress Note ---
Subjective Date Seen by a Provider: Jun 09, 2023 Time Seen by a Provider: 11:29 Subjective/Events-last exam (Tele-ICU Physician , Progress Note ) Service provided via interactive audio and video telecommunications E-CARE system to a patient admitted to ICU bed in [facility]. Patient is seen today due to persistent need of ICU care Available chart/ vitals / labs / Images reviewed Video assessment done using teleICU camera, rest of exam as per RN Discussed with RN Events overnight : Afebrile hemodynamically stable Respiratory - 6l I/O = Drips: Pressors- no Hospital course: (06/08) 72yr M admitted for Pneumonia, Acute on chronic respiratory failure with hypoxia and hypercapnia, COPD Exacerbation. Patient to ER via EMS increased SOB, increased cough. 02 Sats in the 70's upon arrival. 06/09- 6 l o2 Chest pain am with wlv trop , Hb ? to 7.4 ( frpm 9.3 ) A/P COVID PNA - steroids IV AECOPD - nebs , steroids IV Bilat infitrates on CXR -can nort r/o bact infection , s/p recent tx for pNA 04/2023 - on empiric abx for HAP coverage Acute on chronic respiratory failure due to above -off bipap Chest pain 06/09 with elev trop on face of [place] CAD ( not amendable for interb vention in past ) - EKG LBBB (similar to previous) - cards consulted Anemia - no sourse of bleeding , close to baselinbe HB - follow closely , transfuse if chest pain again - cotn PPI Acute on chronic congestive heart failure - diuretics to cont Effusion - persistent after recent PNA - follow CKD - baseline DM II - ISS Lines : perip , (Central Line Necessity Reviewed) Johnson: + OG: Nutrition: po Analgesia: Anxiety/ delirium VTE Prophylaxis: maxime 40 Stress Ulcer Prophylaxis: Plans in collaboration with bedside consultants and IM MDs. Discussed with RN to reach out if any questions or concerns Case and care daily discussed on multidisciplinary rounds ( RN, PharmD, Pantry Worker , Respiratory Therapy, boiler plant worker ) A total of _25 minutes of critical care time was devoted to this patient today, required to treat and/or prevent further deterioration of critical care condition ( as above ) . I am remotely monitoring this patient from another state. I am unable to do the bedside exam, and history/physical and pertinent information is taken from other notes in the computer and bedside staff. Sepsis Event Evaluation Height, Weight, BMI Height: 5'11.00" Weight: 225lbs. 0.0oz. [id number]; 28.75 BMI Method:Stated Focused Exam Lactate Level 06/08/23 03:56: Lactic Acid Level 1.43 Time of Focused Exam: 04:45 Exam Exam Patient acknowledged, consented, and participated in this virtual visit which was conducted using real time audio/video Vital Signs Date Time Temp Pulse Resp B/P (MAP) Pulse Ox O2 Delivery O2 Flow Rate FiO2 06/09/23 10:00 70 136/70 (92) 100 High Flow N/C 6.00 06/09/23 10:00 NIV Bilevel 35.00 06/09/23 09:00 78 140/71 (94) 100 High Flow N/C 6.00 06/09/23 08:00 72 129/66 (87) 100 High Flow N/C 6.00 06/09/23 08:00 95 High Flow N/C 6.00 06/09/23 07:04 76 06/09/23 07:00 75 137/70 (92) 99 High Flow N/C 6.00 06/09/23 06:50 76 100 High Flow N/C 6.00 06/09/23 06:00 67 127/63 (89) 100 NIV Bilevel 35.00 06/09/23 05:00 73 132/61 (96) 100 NIV Bilevel 35.00 06/09/23 04:00 95 NIV Bilevel 35 06/09/23 04:00 82 143/73 (96) 100 NIV Bilevel 35.00 06/09/23 03:00 75 138/65 (89) 99 NIV Bilevel 35.00 06/09/23 02:00 74 137/71 (93) 99 NIV Bilevel 35.00 06/09/23 01:00 81 136/64 (88) 99 NIV Bilevel 35.00 06/09/23 01:00 81 06/09/23 00:00 97 NIV Bilevel 35 06/09/23 00:00 77 125/64 (84) 99 NIV Bilevel 35.00 06/08/23 23:00 79 124/65 (84) 99 NIV Bilevel 35.00 06/08/23 22:45 79 19 99 35.00 06/08/23 22:45 79 125/64 (84) 100 NIV Bilevel 35.00 06/08/23 22:00 84 128/63 (84) 100 NIV Bilevel 40.00 06/08/23 21:15 85 120/59 (79) 98 NIV Bilevel 40.00 06/08/23 21:00 80 118/58 (78) 100 High Flow N/C 6.00 06/08/23 20:00 95 High Flow N/C 6.00 06/08/23 20:00 102 121/63 (82) 98 High Flow N/C 6.00 06/08/23 19:00 102 124/59 (80) 95 High Flow N/C 6.00 06/08/23 19:00 100 06/08/23 18:43 90 High Flow N/C 6.00 06/08/23 18:00 95 127/64 (87) 94 High Flow N/C 5.00 06/08/23 17:00 97 105/50 (78) 97 High Flow N/C 5.00 06/08/23 16:00 94 High Flow N/C 6.00 06/08/23 16:00 36.6 06/08/23 16:00 103 116/51 (74) 97 High Flow N/C 5.00 06/08/23 15:00 96 124/62 (86) 94 High Flow N/C 5.00 06/08/23 14:00 101 117/62 (97) 95 High Flow N/C 5.00 06/08/23 13:00 98 111/54 (74) 95 High Flow N/C 5.00 06/08/23 12:49 100 06/08/23 12:23 95 Nasal Cannula 10.00 06/08/23 12:00 111 111/59 (78) 91 High Flow N/C 5.00 06/08/23 11:46 36.6 I & O 06/09/23 07:00 Intake Total 2370 ml Output Total 2000 ml Balance 370 ml Height & Weight Height: 5'11.00" Weight: 225lbs. 0.0oz. 102.756379lk; 28.75 BMI Method:Stated General Appearance: No Apparent Distress, Chronically ill HEENT: Moist Mucous Membranes Neck: Full Range of Motion Respiratory: Decreased Breath Sounds Cardiovascular: Regular Rate, Rhythm Capillary Refill: Less Than 3 Seconds Gastrointestinal: non tender, soft Extremity: No Calf Tenderness, Pedal Edema Neurologic/Psychiatric: Alert, Oriented x3, Normal Mood/Affect Skin: Warm/Dry Results Lab Laboratory Tests 06/08/23 03:56 06/09/23 04:25 06/09/23 06:26 Assessment/Plan Assessment/Plan 1 JESSY RAMIREZ MD Jun 09, 2023 11:29
--- NOTE | 2023-06-09 13:49 | Diagnostic Imaging Report ---
EXAMINATION: Chest, one view. HISTORY: Dyspnea. COMPARISON: 06/08/2023. FINDINGS: Stable cardiomegaly with central pulmonary vascular congestion. Small right-sided pleural effusion is seen. The right hemidiaphragm is elevated. IMPRESSION: 1. Stable chest with stable cardiomegaly and congestion. Dictated by: Dictated on workstation # [id number]
--- NOTE | 2023-06-09 14:19 | Physical Therapy Evaluation ---
PT Evaluation-General Medical Diagnosis Admission Date Jun 08, 2023 at 05:08 Medical Diagnosis: COVID Onset Date: Jun 08, 2023 Therapy Diagnosis Therapy Diagnosis: Gait deficit, strength deficit Height/Weight Height (Feet): 5 Height (Inches): 11.00 Weight (Pounds): 225 Weight (Ounces): 0.0 Precautions Precautions/Isolations: Airborne Isolation, Fall Prevention Weight Bear Status Right Lower Extremity: Right Full Weight Bearing Left Lower Extremity: Left Full Weight Bearing Referral Physician: Dr. Sabillon Reason for Referral: Evaluation/Treatment Medical History Reviewed History: Yes Social History Home: Apartment Current Living Status: Spouse Entry Into Home: Level Entry Prior Prior Level of Function SCALE: Activities may be completed with or without assistive devices. 4-Drpucvdxau-msgzydv completes the activity by him/herself with no assistance from a helper. 5-Set-up or Clean-up Assistance-helper sets up or cleans up; patient completes activity. [place] assists only prior to or following the activity. 4-Supervision or Touching Assistance-helper provides verbal cues and/or touching/steadying and/or contact guard assistance as patient completes activity. Assistance may be provided throughout the activity or intermittently. 3-Partial/Moderate Assistance-helper does LESS THAN HALF the effort. [place] lifts, holds or supports trunk or limbs, but provides less than half the effort. 2-Substantial/Maximal Assistance-helper does MORE THAN HALF the effort. [place] lifts or holds trunk or limbs and provides more than half the effort. 1-Opgrogtxm-pnbxhp does ALL the effort. Patient does none of the effort to complete the activity. Or, the assistance of 2 or more helpers is required for the patient to complete the activity. If activity was not attempted, code reason: 7-Patient Refused. 9-Not Applicable-not attempted and the patient did not perform the activity before the current illness, exacerbation or injury. 10-Not Attempted due to Environmental Limitations-(lack of equipment, weather restraints, etc.). 88-Not Attempted due to Medical Conditions or Safety Concerns. Bed Mobility: 6 Transfers (B,C,W/C): 6 Gait: 6 Indoor Mobility (Ambulation): Independent Stairs: Not Applicalbe Prior Devices Use: Walker PT Evaluation-Current Subjective Patient lying supine in bed upon PT arrival, HOB elevated fully, in the room, both agreeable to treatment. Patient rates 8/10 in low back. Objective Patient Orientation: Person, Place, Time, Situation Attachments: Oxygen, Johnson Catheter, IV ROM/Strength ROM Lower Extremities WLFs BLEs all planes Strength Lower Extremities 3+/5 BLEs all planes Sensory Vision: Wears Glasses Hearing: Hearing Aid/Aides Sensation Right Lower Extremit: Intact Sensation Left Lower Extremity: Intact Transfers Roll Left to Right (QC): 4 Sit to Lying (QC): 4 Lying to Sitting/Side of Bed(Q: 4 Sit to Stand (QC): 4 Chair/Kec-ou-Gjxii Xfer(QC): 4 Gait Does the Patient Walk?: Yes Mode of Locomotion: Walk Anticipated Mode of Locomotion: Walk Walk 10 feet (QC): 4 Distance: 5' forwards/back Gait Assistive Device: FWW Balance Sitting Static: Fair Sitting Dynamic: Fair Standing Static: Poor Standing Dynamic: Poor Assessment/Needs Patient tolerated treatment poorly. He performed all bed mobility and transfers with CGA/SBA. Patient ambulates 5 feet forwards/backwards with FWW, with CGA and verbal cues. Reports increase in LBP and requests to sit. Initially agreeable to ambulate a second time, but reports back pain too severe and requests to return to bed. Patient in bed post treatment with all needs met, nursing notified, call light in reach and in the room. Rehab Potential: Fair PT Halfway Goals Catalogue Librarian Goals PT Halfway Goals Time Frame: Jun 28, 2023 Roll Left & Right (QC): 6 Sit to Lying (QC): 6 Lying-Sitting on Side/Bed(QC): 6 Sit to Stand (QC): 6 Chair/Ykc-tk-Noahe Xfer(QC): 6 Toilet Transfer (QC): 6 Does the Patient Walk: Yes Walk 10 feet (QC): 6 Walk 50ft with 2 Turns (QC): 6 Walk 150 ft (QC): 4 PT Plan Problem List Problem List: Activity Tolerance, Functional Strength, Safety, Balance, Gait, Transfer, Bed Mobility, ROM Treatment/Plan Treatment Plan: Continue Plan of Care Treatment Plan: Bed Mobility, Education, Functional Activity González, Functional Strength, Group Therapy, Gait, Safety, Therapeutic Exercise, Transfers Treatment Duration: Jun 28, 2023 Frequency: 6 times per week Estimated Hrs Per Day: .25 hour per day Patient and/or Family Agrees t: Yes Safety Risks/Education Patient Education: Gait Training, Transfer Techniques Teaching Recipient: Patient, Family Teaching Methods: Demonstration, Discussion Response to Teaching: Reinforcement Needed Time Time In: 1330 Time Out: 1359 DATE: Jun 09, 2023 Total Billed Treatment Time: 29 Total Billed Treatment Visit, ERIC LANGLEY JOHN A PT Jun 09, 2023 14:19
--- NOTE | 2023-06-09 14:30 | Progress Note ---
Subjective Subjective/Events-last exam Pt states he is a little better. Is on bipap at this time, requested it, did not require for oxygenation purposes, just felt short of breath. Focused Exam Lactate Level 06/08/23 03:56: Lactic Acid Level 1.43 Time of Focused Exam: 04:45 Objective Exam Last Set of Vital Signs Vital Signs Date Time Temp Pulse Resp B/P (MAP) Pulse Ox O2 Delivery O2 Flow Rate FiO2 06/09/23 13:00 86 142/72 (95) 100 High Flow N/C 6.00 06/09/23 04:00 35 06/08/23 22:45 19 06/08/23 16:00 36.6 Capillary Refill : Less Than 3 Seconds I&O Intake and Output 06/09/23 00:00 Intake Total 2050 ml Output Total 1300 ml Balance 750 ml Intake Oral 1950 ml IV Total 100 ml Output Urine Total 1300 ml Daily Weight Change No General: Alert, No Acute Distress Lungs: Clear to Auscultation Heart: Regular Rate Extremities: No Edema Neuro: Normal Speech Psych/Mental Status: Mood NL Results/Procedures Lab Laboratory Tests 06/08/23 16:02: Glucometer 242H 06/08/23 20:24: Glucometer 286H 06/09/23 01:00: Total Creatine Kinase 46 06/09/23 04:25: White Blood Count 21.7H, Red Blood Count 2.93L, Hemoglobin 7.7L, Hematocrit 25L, Mean Corpuscular Volume 86, Mean Corpuscular Hemoglobin 26, Mean Corpuscular Hemoglobin Concent 31L, Red Cell Distribution Width 16.0H, Platelet Count 304, Mean Platelet Volume 10.5, Immature Granulocyte % (Auto) 1, Neutrophils (%) (Auto) 91H, Lymphocytes (%) (Auto) 4L, Monocytes (%) (Auto) 4, Eosinophils (%) (Auto) 0, Basophils (%) (Auto) 0, Neutrophils # (Auto) 19.8H, Lymphocytes # (Auto) 0.9L, Monocytes # (Auto) 0.8, Eosinophils # (Auto) 0.0, Basophils # (Auto) 0.0, Immature Granulocyte # (Auto) 0.2H, Neutrophils % (Manual) 75, Lymphocytes % (Manual) 2, Monocytes % (Manual) 5, Band Neutrophils 16, Reactive Lymphocytes 2, Anisocytosis MODERATE, Schistocytes SLIGHT, Sodium Level 136, Potassium Level 3.8, Chloride Level 101, Carbon Dioxide Level 23, Anion Gap 12, Blood Urea Nitrogen 45H, Creatinine 2.50#H, Estimat Glomerular Filtration Rate 27, BUN/Creatinine Ratio 18, Glucose Level 263H, Calcium Level 8.1L, Corrected Calcium 9.1, Phosphorus Level 4.7, Magnesium Level 1.7, Total Bilirubin 0.2, Aspartate Amino Transf (AST/SGOT) 14, Alanine Aminotransferase (ALT/SGPT) 7, A lkaline Phosphatase 62, Troponin I 1.147*H, Total Protein 6.4, Albumin 2.8L 06/09/23 06:26: White Blood Count 22.3H, Red Blood Count 2.77L, Hemoglobin 7.4L, Hematocrit 24L, Mean Corpuscular Volume 86, Mean Corpuscular Hemoglobin 27, Mean Corpuscular Hemoglobin Concent 31L, Red Cell Distribution Width 15.9H, Platelet Count 326, Mean Platelet Volume 10.4, Immature Granulocyte % (Auto) 1, Neutrophils (%) (Auto) 91H, Lymphocytes (%) (Auto) 4L, Monocytes (%) (Auto) 4, Eosinophils (%) (Auto) 0, Basophils (%) (Auto) 0, Neutrophils # (Auto) 20.2H, Lymphocytes # (Auto) 0.9L, Monocytes # (Auto) 1.0, Eosinophils # (Auto) 0.0, Basophils # (Auto) 0.0, Immature Granulocyte # (Auto) 0.2H 06/09/23 09:50: Glucometer 222H Assessment/Plan Assessment/Plan (1) COVID Status: Acute Assessment & Plan: Supportive care, dexamethasone given COPD and COVID, started on cefepime on admit with possible pneumonia, but CXR while with bilateral findings is not significantly changed from last admission. (2) Acute and chronic respiratory failure Status: Acute Assessment & Plan: Recently discharged with significant home oxygen requirements to SNF, was home for very brief period. COVID likely exacerbating, but unclear how severe given 6 lpm is not significantly above baseline for him. (3) COPD (chronic obstructive pulmonary disease) Onset Date: Unknown Status: Chronic (4) Chronic kidney disease (CKD) Status: Acute Qualifiers: Qualified Codes: N18.4 - Chronic kidney disease, stage 4 (severe) (5) CHF (congestive heart failure) Status: Chronic Qualifiers: (6) CAD (coronary artery disease) Onset Date: Unknown Status: Chronic (7) NSTEMI (non-ST elevated myocardial infarction) Status: Acute Assessment & Plan: Appreciate Cardiology recommendations, recommend conservative treatment, cannot tolerate aggressive anticoagulation due to significant anemia. (8) Diastolic heart failure Status: Chronic Assessment & Plan: On IV lasix BID given bilateral lung findings on CXR with possible edema. Qualifiers: Qualified Codes: I50.32 - Chronic diastolic (congestive) heart failure (9) Elevated d-dimer Status: Acute Assessment & Plan: Significantly increased from last hospitalization, cannot obtain CTA due to kidney function. Possibly due to COVID. Oxygenation not far from baseline, consider V/Q if worsening. Cannot tolerate aggressive anticoagulation due to significant anemia. (10) DVT prophylaxis Status: Acute Assessment & Plan: Enoxaparin TRICIA BHATTI MD Jun 09, 2023 14:30
[2023-06-10] MEDS: RT-ALBUTEROL HFA 8.5 GM INHALER IH SCH ×6 (02:59→22:14)
[2023-06-10] MEDS: CEFEPIME 1,000 MG/NS 50 ML IVPB IV SCH ×6 (03:37→20:01)
[2023-06-10 04:16] LABS: BASOPHILS % (AUTO) 0 % (0-10); EOSINOPHILS % (AUTO) 0 % (0-10); HEMATOCRIT 27 % (40-54); HEMOGLOBIN 8.4 g/dL (13.3-17.7); LYMPHOCYTES # (AUTO) 0.7 10^3/uL (1.0-4.0); LYMPHOCYTES % (AUTO) 3 % (12-44); MEAN CORPUSCULAR HEMOGLOBIN 27 pg (25-34); MEAN CORPUSCULAR HGB CONC 32 g/dL (32-36); MEAN CORPUSCULAR VOLUME 84 fL (80-99); MEAN PLATELET VOLUME 10.7 fL (9.0-12.2); MONOCYTES # (AUTO) 0.6 10^3/uL (0.0-1.0); MONOCYTES % (AUTO) 3 % (0-12); NEUTROPHILS # (AUTO) 20.5 10^3/uL (1.8-7.8); NEUTROPHILS % (AUTO) 93 % (42-75); PLATELET COUNT 335 10^3/uL (130-400)
[2023-06-10 04:43] LABS: ALBUMIN 2.9 GM/DL (3.2-4.5); BILIRUBIN,TOTAL 0.3 MG/DL (0.1-1.0); CALCIUM 8.3 MG/DL (8.5-10.1); CREATININE SERUM 2.36 MG/DL (0.60-1.30); MAGNESIUM 2.1 MG/DL (1.6-2.4); POTASSIUM 3.8 MMOL/L (3.6-5.0); TOTAL PROTEIN 6.7 GM/DL (6.4-8.2)
[2023-06-10] MEDS: POTASSIUM CL 10MEQ/50ML IVPB 50 ML IV SCH (04:49)
[2023-06-10] MEDS: MAGNESIUM 1 GM/100 ML IVPB 100 ML IV SCH (04:50)
[2023-06-10] MEDS: POTASSIUM CHLORIDE 20 MEQ TABLET PO SCH (04:51)
[2023-06-10] MEDS: inSUlin ASPART 1 UNIT/0.01 ML (PER UNIT) SC SCH ×4 (05:26→20:14)
[2023-06-10] MEDS: ENOXAPARIN 40 MG/0.4 ML SYRINGE SC SCH (05:27)
--- NOTE | 2023-06-10 07:35 | Progress Note ---
Subjective Subjective/Events-last exam States he is feeling poorly today, didn't sleep well. Feeling cold. Bottom is sore. Breathing is not too bad but is having congestion that is starting to try to come up. Focused Exam Lactate Level 06/08/23 03:56: Lactic Acid Level 1.43 Time of Focused Exam: 04:45 Objective Exam Last Set of Vital Signs Vital Signs Date Time Temp Pulse Resp B/P (MAP) Pulse Ox O2 Delivery O2 Flow Rate FiO2 06/10/23 07:27 98 High Flow N/C 5.00 06/10/23 06:00 90 14 154/72 (99) 06/09/23 19:29 36.5 06/09/23 04:00 35 Capillary Refill : Less Than 3 Seconds I&O Intake and Output 06/10/23 00:00 Intake Total 1320 ml Output Total 1725 ml Balance -405 ml Intake Oral 1270 ml IV Total 50 ml Output Urine Total 1725 ml General: Alert, No Acute Distress Lungs: Clear to Auscultation, Normal Air Movement Heart: Regular Rate, No Murmurs Abdomen: Normal Bowel Sounds, Soft Extremities: No Edema Neuro: Normal Speech Psych/Mental Status: Mood NL Results/Procedures Lab Laboratory Tests 06/09/23 09:50: Glucometer 222H 06/09/23 15:48: Glucometer 233H 06/09/23 20:54: Glucometer 269H 06/10/23 03:55: White Blood Count 22.0H, Red Blood Count 3.17L, Hemoglobin 8.4L, Hematocrit 27L, Mean Corpuscular Volume 84, Mean Corpuscular Hemoglobin 27, Mean Corpuscular Hemoglobin Concent 32, Red Cell Distribution Width 16.0H, Platelet Count 335, Mean Platelet Volume 10.7, Immature Granulocyte % (Auto) 1, Neutrophils (%) (Auto) 93H, Lymphocytes (%) (Auto) 3L, Monocytes (%) (Auto) 3, Eosinophils (%) (Auto) 0, Basophils (%) (Auto) 0, Neutrophils # (Auto) 20.5H, Lymphocytes # (Auto) 0.7L, Monocytes # (Auto) 0.6, Eosinophils # (Auto) 0.0, Basophils # (Auto) 0.0, Immature Granulocyte # (Auto) 0.2H, Sodium Level 137, Potassium Level 3.8, Chloride Level 100, Carbon Dioxide Level 23, Anion Gap 14, Blood Urea Nitrogen 52H, Creatinine 2.36H, Estimat Glomerular Filtration Rate 29, BUN/Creatinine Ratio 22, Glucose Level 269H, Calcium Level 8.3L, Corrected Calcium 9.2, Phosphorus Level 4.0, Magnesium Level 2.1, Total Bilirubin 0.3, Aspartate Amino Transf (AST/SGOT) 14, Alanine Aminotransferase (ALT/SGPT) 10, Alkaline Phosphatase 61, Total Protein 6.7, Albumin 2.9L Microbiology 06/08/23 Blood Culture - Preliminary, Resulted Assessment/Plan Assessment/Plan (1) COVID Status: Acute Assessment & Plan: Supportive care, dexamethasone given COPD and COVID, started on cefepime on admit with possible pneumonia, but CXR while with bilateral findings is not significantly changed from last admission. (2) Acute and chronic respiratory failure Status: Acute Assessment & Plan: Recently discharged with significant home oxygen requirements to SNF, was home for very brief period. COVID likely exacerbating, but unclear how severe given 6 lpm is not significantly above baseline for him. -On 5 lpm this morning, used bipap only overnight. Will transfer to floor. (3) COPD (chronic obstructive pulmonary disease) Onset Date: Unknown Status: Chronic (4) Chronic kidney disease (CKD) Status: Acute Qualifiers: Qualified Codes: N18.4 - Chronic kidney disease, stage 4 (severe) (5) CHF (congestive heart failure) Status: Chronic Qualifiers: (6) CAD (coronary artery disease) Onset Date: Unknown Status: Chronic (7) NSTEMI (non-ST elevated myocardial infarction) Status: Acute Assessment & Plan: Appreciate Cardiology recommendations, recommend conservative treatment, cannot tolerate aggressive anticoagulation due to signi ficant anemia. (8) Diastolic heart failure Status: Chronic Assessment & Plan: On IV lasix BID given bilateral lung findings on CXR with possible edema. Qualifiers: Qualified Codes: I50.32 - Chronic diastolic (congestive) heart failure (9) Elevated d-dimer Status: Acute Assessment & Plan: Significantly increased from last hospitalization, cannot obtain CTA due to kidney function. Possibly due to COVID. Oxygenation not far from baseline, consider V/Q if worsening. Cannot tolerate aggressive anticoagulation due to significant anemia. (10) DVT prophylaxis Status: Acute Assessment & Plan: Enoxaparin TRICIA BHATTI MD Jun 10, 2023 07:35
[2023-06-10] MEDS ORDERED: POTASSIUM CHLORIDE 20 MEQ TABLET PO ONE (08:00)
[2023-06-10] MEDS: FUROSEMIDE INJECTION 40 MG/4 ML VIAL IV SCH ×2 (08:29→20:01)
[2023-06-10] MEDS: dexAMETHasone INJ 4 MG/ML SDV IV SCH ×2 (08:29→20:01)
[2023-06-10] MEDS: DOCUSATE SODIUM 100 MG CAPSULE PO SCH ×2 (08:30→20:02)
[2023-06-10] MEDS: ASPIRIN 81 MG CHEWABLE TABLET PO SCH (08:30)
[2023-06-10] MEDS: SENNOSIDES 8.6 MG TABLET PO SCH ×2 (08:30→20:02)
[2023-06-10] MEDS: PANTOPRAZOLE 40 MG TABLET PO SCH (08:30)
[2023-06-10] MEDS: VANCOMYCIN 1 GM/NS 250 ML IVPB IV SCH ×2 (08:31)
[2023-06-10] MEDS ORDERED: NON-FORMULARY MEDICATION 1 EA EA (Budesonide/Glycopyr/Formoterol (Breztri Aerosphere Inhal IH SCH (09:00)
--- NOTE | 2023-06-10 09:01 | Tele-ICU Progress Note ---
Subjective Date Seen by a Provider: Jun 10, 2023 Time Seen by a Provider: 08:55 Subjective/Events-last exam (Tele-ICU Physician , Progress Note ) Service provided via interactive audio and video telecommunications E-CARE system to a patient admitted to ICU bed in [facility]. Patient is seen today due to persistent need of ICU care Available chart/ vitals / labs / Images reviewed Video assessment done using teleICU camera, rest of exam as per RN Discussed with RN Events overnight : Afebrile hemodynamically stable Respiratory - I/O = Drips: ns 125 Pressors- no 72 yo M admitted on 06/08 with PNA, Also has COPD with most recent ABG on 06/08 7.32/50/81. Now on 6 lpm high flow Able to get up to chair and did not drop SpO2 On Decadron IV, LABA/ICS/LAMA, PRN albuterol, Pt on BID IV Lasix, On IV Vanco/Cefepime, blood cultures are negative Last CXR on 06/09 shows elevated diaphragms, congestion, increased HS Serology + for Covid, on IV Decadron, not on Remdesivir, Probably contracted Covid at [facility] Has CKD, today Cr 2.36m BUN 52 Sepsis Event Evaluation Height, Weight, BMI Height: 5'11.00" Weight: 225lbs. 0.0oz. 102.722616er; 28.78 BMI Method:Stated Focused Exam Lactate Level 06/08/23 03:56: Lactic Acid Level 1.43 Time of Focused Exam: 04:45 Exam Exam Patient acknowledged, consented, and participated in this virtual visit which was conducted using real time audio/video Vital Signs Date Time Temp Pulse Resp B/P (MAP) Pulse Ox O2 Delivery O2 Flow Rate FiO2 06/10/23 08:27 36.8 06/10/23 08:26 High Flow N/C 6.00 06/10/23 07:30 High Flow N/C 5.00 06/10/23 07:27 98 High Flow N/C 5.00 06/10/23 07:26 100 High Flow N/C 6.00 06/10/23 07:04 80 06/10/23 07:00 83 32 152/66 (94) 100 NIV Bilevel 35.00 06/10/23 06:00 90 14 154/72 (99) 100 NIV Bilevel 35.00 06/10/23 05:00 74 25 146/72 (96) 99 NIV Bilevel 35.00 06/10/23 04:00 89 25 148/76 (100) 99 NIV Bilevel 35.00 06/10/23 03:49 High Flow N/C 6.00 06/10/23 03:00 85 23 150/70 (96) 98 NIV Bilevel 35.00 06/10/23 02:59 98 High Flow N/C 6.00 06/10/23 02:00 84 19 109/88 (95) 96 NIV Bilevel 35.00 06/10/23 01:00 82 06/10/23 01:00 82 20 146/70 (95) 99 NIV Bilevel 35.00 06/10/23 00:00 85 21 148/73 (98) 100 NIV Bilevel 35.00 06/09/23 23:34 High Flow N/C 6.00 06/09/23 23:00 85 21 144/66 (92) 99 NIV Bilevel 35.00 06/09/23 22:38 92 21 98 35.00 06/09/23 22:36 91 High Flow N/C 6.00 06/09/23 22:00 85 27 154/74 (100) 96 High Flow N/C 6.00 06/09/23 21:00 87 24 152/68 (96) 97 High Flow N/C 6.00 06/09/23 20:00 87 27 126/65 (85) 95 High Flow N/C 6.00 06/09/23 20:00 High Flow N/C 6.00 06/09/23 19:29 36.5 06/09/23 19:00 92 24 145/72 (96) 95 High Flow N/C 6.00 06/09/23 19:00 92 06/09/23 17:25 High Flow N/C 6.00 06/09/23 17:15 92 137/74 (95) 99 High Flow N/C 6.00 06/09/23 16:00 95 High Flow N/C 6.00 06/09/23 14:00 High Flow N/C 6.00 06/09/23 13:00 86 142/72 (95) 100 High Flow N/C 6.00 06/09/23 12:07 90 06/09/23 12:00 95 High Flow N/C 6.00 06/09/23 12:00 76 134/60 (84) 100 High Flow N/C 6.00 06/09/23 11:30 High Flow N/C 6.00 06/09/23 11:00 78 136/76 (96) 100 NIV Bilevel 35.00 06/09/23 10:00 70 136/70 (92) 100 High Flow N/C 6.00 06/09/23 10:00 NIV Bilevel 35.00 06/09/23 09:00 78 140/71 (94) 100 High Flow N/C 6.00 I & O 06/10/23 06:59 Intake Total 1500 ml Output Total 2675 ml Balance -1175 ml Height & Weight Height: 5'11.00" Weight: 225lbs. 0.0oz. 102.803428jd; 28.78 BMI Method:Stated General Appearance: No Apparent Distress, Chronically ill HEENT: Moist Mucous Membranes Neck: Full Range of Motion Respiratory: Decreased Breath Sounds Cardiovascular: Regular Rate, Rhythm Capillary Refill: Less Than 3 Seconds Gastrointestinal: non tender, soft Extremity: No Calf Tenderness, Pedal Edema Neurologic/Psychiatric: Alert, Oriented x3, Normal Mood/Affect Skin: Warm/Dry Results Lab Laboratory Tests 06/09/23 04:25 06/09/23 06:26 06/10/23 03:55 Assessment/Plan Assessment/Plan AECOPD, continue on LAMA/ICS/LABA + Covid, continue on IV Decadron PNA, blood cultures neg so far, continue on IV Vanco, Cefepime Dropped Hb, today up to 8.4, no active bleeding, on IV PPI, DM on sliding scale insulin, needs at times, glu runs in 200's Critical Care: Critically Ill Patient Time spent with patient (mins): 25 CAMERON CHEUNG MD Jun 10, 2023 09:01
[2023-06-10] MEDS: FLUTICASONE/VILANTEROL 100/25 MCG (7 DOSES) IH SCH (11:20)
[2023-06-10] MEDS: TIOTROPIUM INH 4 GM (SPIRIVA Respimat) IH SCH (11:21)
--- NOTE | 2023-06-10 11:47 | Physical Therapy Daily Note ---
PT Daily Note-Current Subjective Patient agrees to PT. Pain Section J - Health Conditions 1. Rarely or not at all 2. Occasionally 3. Frequently 4. Almost constantly 8. Unable to answer Pain Effect on Sleep: 1 Pain Interference with Therapy: 1 Pain Interference w/Day-to-Day: 1 Mental Status Patient Orientation: Normal For Age Attachments: Oxygen, Johnson Catheter Transfers SCALE: Activities may be completed with or without assistive devices. 8-Bhlqjqminl-itqenej completes the activity by him/herself with no assistance from a helper. 5-Set-up or Clean-up Assistance-helper sets up or cleans up; patient completes activity. [place] assists only prior to or following the activity. 4-Supervision or Touching Assistance-helper provides verbal cues and/or touching/steadying and/or contact guard assistance as patient completes activity. Assistance may be provided throughout the activity or intermittently. 3-Partial/Moderate Assistance-helper does LESS THAN HALF the effort. [place] lifts, holds or supports trunk or limbs, but provides less than half the effort. 2-Substantial/Maximal Assistance-helper does MORE THAN HALF the effort. [place] lifts or holds trunk or limbs and provides more than half the effort. 7-Knycxepwy-nipggs does ALL the effort. Patient does none of the effort to complete the activity. Or, the assistance of 2 or more helpers is required for the patient to complete the activity. If activity was not attempted, code reason: 7-Patient Refused. 9-Not Applicable-not attempted and the patient did not perform the activity before the current illness, exacerbation or injury. 10-Not Attempted due to Environmental Limitations-(lack of equipment, weather restraints, etc.). 88-Not Attempted due to Medical Conditions or Safety Concerns. Sit to Stand (QC): 3 Weight Bearing Right Lower Extremity: Right Full Weight Bearing Left Lower Extremity: Left Full Weight Bearing Exercises Seated Therapy Exercises: Ankle pumps, Sit to stand (5 sets with standing x 1 min each), Long arc quads, Hip flexion Seated Reps: 15 Assessment Patient's SAO2 decreases to 84% on 5L with minimal activity. Patient requires seated recovery periods due to SOA. Patient remains up in recliner with needs met. Continue to increase activity as tolerated by patient. PT [facility] Goals [facility] Goals PT [facility] Goals Time Frame: Jun 28, 2023 Roll Left & Right (QC): 6 Sit to Lying (QC): 6 Lying-Sitting on Side/Bed(QC): 6 Sit to Stand (QC): 6 Chair/Qxx-aa-Imiwv Xfer(QC): 6 Toilet Transfer (QC): 6 Does the Patient Walk: Yes Walk 10 feet (QC): 6 Walk 50ft with 2 Turns (QC): 6 Walk 150 ft (QC): 4 PT Plan Treatment/Plan Treatment Plan: Continue Plan of Care Treatment Plan: Bed Mobility, Education, Functional Activity González, Functional Strength, Group Therapy, Gait, Safety, Therapeutic Exercise, Transfers Treatment Duration: Jun 28, 2023 Frequency: 6 times per week Estimated Hrs Per Day: .25 hour per day Patient and/or Family Agrees t: Yes Time Time In: 1125 Time Out: 1140 DATE: Jun 10, 2023 Total Billed Treatment Time: 15 Total Billed Treatment 1 visit EX 15 min YUNG HASSAN PT Jun 10, 2023 11:47
[2023-06-10] MEDS: ASPIRIN enteric coated 81MG TABLET PO SCH (11:54)
--- NOTE | 2023-06-10 12:38 | Cardiology Progress Note ---
Subjective Date Seen by Provider: Jun 10, 2023 Time Seen by Provider: 12:37 Subjective/Events-last exam Patient was seen at bedside, sitting comfortably, feeling better. No new complain Focused Exam Lactate Level 06/08/23 03:56: Lactic Acid Level 1.43 Time of Focused Exam: 04:45 Objective-Cardiology Exam Last Set of Vital Signs Vital Signs 06/09/23 06/10/23 06/10/23 04:00 08:27 11:30 Temp 36.8 Pulse 96 Resp 19 B/P (MAP) 130/62 (84) Pulse Ox 93 O2 Delivery High Flow N/C O2 Flow Rate 5.00 FiO2 35 I&O Intake and Output 06/10/23 00:00 Intake Total 1320 ml Output Total 1725 ml Balance -405 ml Intake Oral 1270 ml IV Total 50 ml Output Urine Total 1725 ml General: Alert, No Acute Distress HEENT: Atraumatic, PERRLA Neck: Supple, No Thyromegaly Lungs: Normal Air Movement Heart: Regular Rate, No Murmurs Abdomen: Normal Bowel Sounds, Soft Extremities: No Edema Skin: No Rashes, No Breakdown, No Significant Lesion Neuro: Normal Speech Psych/Mental Status: Mood NL Results Lab Laboratory Tests 06/10/23 03:55 A/P-Cardiology Admission Diagnosis Acute respiratory failure Non-ST elevation myocardial infarction COVID-19 pneumonia Coronary artery disease Assessment/Plan Status post acute respiratory insufficiency, COVID-19 pneumonia Persistent leukocytosis Improving slowly Non-ST elevation myocardial infarction, underlying chronic left bundle branch block Conservative management is recommended Coronary artery disease, cardiac catheterization was done in April 2021 with moderate disease in the mid right coronary artery with occlusion at the distal right PDA that is a small vessel not amendable to intervention, had multiple stents in the proximal and mid LAD and proximal and mid circumflex artery and they were patent. Mild to moderate in-stent restenosis. His troponin elevation is probably due to the occluded right PDA and small vessel disease. Conservative management is recommended. Anemia, worsening H&H, cannot tolerate aggressive anticoagulation Maintain on PPI and I will add aspirin 81 mg daily and monitor tolerance and response Hypertension, continue to monitor blood pressure Chronic kidney disease stage IV, monitor renal function Chronic left bundle branch block Peripheral arterial disease, chronic pedal edema. Hyperlipidemia, monitor lipids Diabetes mellitus, followed and managed by primary care physician History of chronic back pain FADUMO TALAVERA MD Jun 10, 2023 12:38
[2023-06-10] MEDS ORDERED: MTP100TCR PO (13:59)
[2023-06-10] MEDS ORDERED: INSU100I88 SQ (13:59)
[2023-06-10 15:31] VITALS: BP 136/64
[2023-06-10 19:59] VITALS: BP 150/66
[2023-06-10] MEDS ORDERED: inSUlin DETERMIR 1 UNIT/0.01 ML (CHARGE PER UNIT) SQ SCH (21:00)
[2023-06-11] VITALS (8 sets, daily range): BP systolic 126–155; BP diastolic 60–75
[2023-06-11] MEDS: RT-ALBUTEROL HFA 8.5 GM INHALER IH SCH ×6 (03:35→22:45)
[2023-06-11] MEDS: CEFEPIME 1,000 MG/NS 50 ML IVPB IV SCH ×6 (04:35→21:30)
[2023-06-11] MEDS: ENOXAPARIN 40 MG/0.4 ML SYRINGE SC SCH (05:41)
[2023-06-11] MEDS: inSUlin ASPART 1 UNIT/0.01 ML (PER UNIT) SC SCH ×4 (05:41→21:30)
[2023-06-11 06:28] LABS: ALBUMIN 2.9 GM/DL (3.2-4.5)
[2023-06-11 06:29] LABS: POTASSIUM 4.2 MMOL/L (3.6-5.0)
[2023-06-11 06:30] LABS: CALCIUM 8.3 MG/DL (8.5-10.1)
[2023-06-11 06:31] LABS: TOTAL PROTEIN 6.6 GM/DL (6.4-8.2)
[2023-06-11 06:33] LABS: BILIRUBIN,TOTAL 0.3 MG/DL (0.1-1.0)
[2023-06-11 06:34] LABS: BASOPHILS % (AUTO) 0 % (0-10); EOSINOPHILS % (AUTO) 0 % (0-10); HEMATOCRIT 27 % (40-54); HEMOGLOBIN 8.2 g/dL (13.3-17.7); LYMPHOCYTES # (AUTO) 0.7 10^3/uL (1.0-4.0); LYMPHOCYTES % (AUTO) 3 % (12-44); MEAN CORPUSCULAR HEMOGLOBIN 27 pg (25-34); MEAN CORPUSCULAR HGB CONC 31 g/dL (32-36); MEAN CORPUSCULAR VOLUME 86 fL (80-99); MEAN PLATELET VOLUME 10.8 fL (9.0-12.2); MONOCYTES # (AUTO) 0.8 10^3/uL (0.0-1.0); MONOCYTES % (AUTO) 4 % (0-12); NEUTROPHILS # (AUTO) 19.3 10^3/uL (1.8-7.8); NEUTROPHILS % (AUTO) 91 % (42-75); PLATELET COUNT 312 10^3/uL (130-400); WHITE BLOOD COUNT 21.2 10^3/uL (4.3-11.0)
[2023-06-11 06:35] LABS: CREATININE SERUM 2.33 MG/DL (0.60-1.30)
[2023-06-11] MEDS ORDERED: NON-FORMULARY MEDICATION 1 EA EA (Fluticasone Propionate (Flonase Allergy Relief) 1 SPRAY) NSEACH SCH (09:00)
[2023-06-11] MEDS ORDERED: PANTOPRAZOLE 40 MG TABLET PO SCH (09:00)
[2023-06-11] MEDS ORDERED: NON-FORMULARY MEDICATION 1 EA EA (Folic Acid 0.4 MG) PO SCH (09:00)
[2023-06-11] MEDS: TIOTROPIUM INH 4 GM (SPIRIVA Respimat) IH SCH (10:26)
[2023-06-11] MEDS: FLUTICASONE/VILANTEROL 100/25 MCG (7 DOSES) IH SCH (10:26)
[2023-06-11] MEDS: FUROSEMIDE INJECTION 40 MG/4 ML VIAL IV SCH ×2 (10:51→21:29)
[2023-06-11] MEDS: dexAMETHasone INJ 4 MG/ML SDV IV SCH (10:52)
[2023-06-11] MEDS: FLUTICASONE NASAL SPRAY (120 SPRAYS) NS SCH (10:52)
[2023-06-11] MEDS: CYANOCOBALAMIN 1,000 MCG TABLET PO SCH (10:55)
[2023-06-11] MEDS: SENNOSIDES 8.6 MG TABLET PO SCH ×2 (10:55→21:29)
[2023-06-11] MEDS: PANTOPRAZOLE 40 MG TABLET PO SCH (10:55)
[2023-06-11] MEDS: DOCUSATE SODIUM 100 MG CAPSULE PO SCH ×2 (10:55→21:28)
[2023-06-11] MEDS: CLOPIDOGREL 75 MG TABLET PO SCH (10:55)
[2023-06-11] MEDS: ASPIRIN enteric coated 81MG TABLET PO SCH (10:55)
[2023-06-11] MEDS: FOLIC ACID 1 MG TAB PO SCH (10:56)
[2023-06-11] MEDS: amLODIPine 5 MG TABLET PO SCH (10:56)
--- NOTE | 2023-06-11 15:12 | Physical Therapy Progress Note ---
Therapy Progress Note Patient lying supine in bed upon PT arrival, refuses treatment stating "I'm tired, trying to get some sleep, I didn't sleep last night." LISA CORRALES PT Jun 11, 2023 15:12
[2023-06-11] MEDS: TAMSULOSIN 0.4 MG (FLOMAX) CAP PO SCH (16:45)
[2023-06-11] MEDS: MONTELUKAST 10 MG TABLET PO SCH (16:46)
--- NOTE | 2023-06-11 17:22 | Cardiology Progress Note ---
Subjective Date Seen by Provider: Jun 11, 2023 Time Seen by Provider: 17:21 Subjective/Events-last exam Patient was seen at bedside, laying down comfortably. No new complaint. Focused Exam Time of Focused Exam: 04:45 Objective-Cardiology Exam Last Set of Vital Signs Vital Signs 06/11/23 06/11/23 15:41 16:18 Temp 36.2 Pulse 83 Resp 18 B/P (MAP) 127/63 (84) Pulse Ox 98 O2 Delivery High Flow N/C O2 Flow Rate 9.00 FiO2 40 I&O Intake and Output 06/11/23 00:00 Intake Total 2040 ml Output Total 3600 ml Balance -1560 ml Intake Oral 1990 ml IV Total 50 ml Output Urine Total 3600 ml # Bowel Movements 1 General: Alert, No Acute Distress HEENT: Atraumatic, PERRLA Neck: Supple, No Thyromegaly Lungs: Normal Air Movement Heart: Regular Rate, Normal S1, Normal S2, No Murmurs Abdomen: Normal Bowel Sounds, Soft Extremities: No Edema Skin: No Rashes, No Breakdown, No Significant Lesion Neuro: Normal Speech Psych/Mental Status: Mood NL Results Lab Laboratory Tests 06/11/23 05:15 A/P-Cardiology Admission Diagnosis Acute respiratory failure Non-ST elevation myocardial infarction COVID-19 pneumonia Coronary artery disease Assessment/Plan Status post acute respiratory insufficiency, COVID-19 pneumonia Persistent leukocytosis Improving slowly Non-ST elevation myocardial infarction, underlying chronic left bundle branch block Conservative management is recommended Coronary artery disease, cardiac catheterization was done in April 2021 with moderate disease in the mid right coronary artery with occlusion at the distal right PDA that is a small vessel not amendable to intervention, had multiple stents in the proximal and mid LAD and proximal and mid circumflex artery and they were patent. Mild to moderate in-stent restenosis. His troponin elevation is probably due to the occluded right PDA and small vessel disease. Conservative management is recommended. Anemia, worsening H&H, cannot tolerate aggressive anticoagulation Maintain on PPI and I will add aspirin 81 mg daily and monitor tolerance and response Hypertension, continue to monitor blood pressure Chronic kidney disease stage IV, monitor renal function Chronic left bundle branch block Peripheral arterial disease, chronic pedal edema. Hyperlipidemia, monitor lipids Diabetes mellitus, followed and managed by primary care physician History of chronic back pain FADUMO TALAVERA MD Jun 11, 2023 17:22
--- NOTE | 2023-06-11 19:01 | Progress Note ---
Subjective Subjective/Events-last exam Pt wearing bipap, states he was just trying to take a nap and put on for that. Denies concerns. Focused Exam Time of Focused Exam: 04:45 Objective Exam Last Set of Vital Signs Vital Signs Date Time Temp Pulse Resp B/P (MAP) Pulse Ox O2 Delivery O2 Flow Rate FiO2 06/11/23 16:18 36.2 83 18 127/63 (84) 98 High Flow N/C 9.00 06/11/23 15:41 40 Capillary Refill : Less Than 3 Seconds I&O Intake and Output 06/11/23 00:00 Intake Total 2040 ml Output Total 3600 ml Balance -1560 ml Intake Oral 1990 ml IV Total 50 ml Output Urine Total 3600 ml # Bowel Movements 1 General: Alert, No Acute Distress Neuro: Normal Speech Psych/Mental Status: Mood NL Results/Procedures Lab Laboratory Tests 06/10/23 20:09: Glucometer 382H 06/11/23 05:15: White Blood Count 21.2H, Red Blood Count 3.10L, Hemoglobin 8.2L, Hematocrit 27L, Mean Corpuscular Volume 86, Mean Corpuscular Hemoglobin 27, Mean Corpuscular Hemoglobin Concent 31L, Red Cell Distribution Width 16.0H, Platelet Count 312, Mean Platelet Volume 10.8, Immature Granulocyte % (Auto) 2, Neutrophils (%) (Auto) 91H, Lymphocytes (%) (Auto) 3L, Monocytes (%) (Auto) 4, Eosinophils (%) (Auto) 0, Basophils (%) (Auto) 0, Neutrophils # (Auto) 19.3H, Lymphocytes # (Auto) 0.7L, Monocytes # (Auto) 0.8, Eosinophils # (Auto) 0.0, Basophils # (Auto) 0.0, Immature Granulocyte # (Auto) 0.3H, Sodium Level 136, Potassium Level 4.2, Chloride Level 100, Carbon Dioxide Level 24, Anion Gap 12, Blood Urea Nitrogen 59H, Creatinine 2.33H, Estimat Glomerular Filtration Rate 29, BUN/Creatinine Ratio 25, Glucose Level 344H, Calcium Level 8.3L, Corrected Calcium 9.2, Total Bilirubin 0.3, Aspartate Amino Transf (AST/SGOT) 14, Alanine Aminotransferase (ALT/SGPT) 9, Alkaline Phosphatase 56, Total Protein 6.6, Albumin 2.9L 06/11/23 05:31: Glucometer 320H 06/11/23 11:15: Glucometer 289H 06/11/23 16:27: Glucometer 353H Microbiology 06/08/23 Blood Culture - Preliminary, Resulted Assessment/Plan Assessment/Plan (1) COVID Status: Acute Assessment & Plan: Supportive care, dexamethasone given COPD and COVID, started on cefepime on admit with possible pneumonia, but CXR while with bilateral findings is not significantly changed from last admission. 06/11 decrease dexamethasone dose (2) Acute and chronic respiratory failure Status: Acute Assessment & Plan: Recently discharged with significant home oxygen requirements to SNF, was home for very brief period. COVID likely exacerbating, but unclear how severe given 6 lpm is not significantly above baseline for him. -On 5 lpm this morning, used bipap only overnight. (3) COPD (chronic obstructive pulmonary disease) Onset Date: Unknown Status: Chronic (4) Chronic kidney disease (CKD) Status: Acute Qualifiers: Qualified Codes: N18.4 - Chronic kidney disease, stage 4 (severe) (5) CHF (congestive heart failure) Status: Chronic Qualifiers: (6) CAD (coronary artery disease) Onset Date: Unknown Status: Chronic (7) NSTEMI (non-ST elevated myocardial infarction) Status: Acute Assessment & Plan: Appreciate Cardiology recommendations, recommend conservative treatment, cannot tolerate aggressive anticoagulation due to si gnificant anemia. (8) Diastolic heart failure Status: Chronic Assessment & Plan: On IV lasix BID given bilateral lung findings on CXR with possible edema. Qualifiers: Qualified Codes: I50.32 - Chronic diastolic (congestive) heart failure (9) Elevated d-dimer Status: Acute Assessment & Plan: Significantly increased from last hospitalization, cannot obtain CTA due to kidney function. Possibly due to COVID. Oxygenation not far from baseline, consider V/Q if worsening. Cannot tolerate aggressive anticoagulation due to significant anemia. (10) DVT prophylaxis Status: Acute Assessment & Plan: Enoxaparin TRICIA BHATTI MD Jun 11, 2023 19:01
[2023-06-11] MEDS: inSUlin DETERMIR 1 UNIT/0.01 ML (CHARGE PER UNIT) SQ SCH (21:29)
[2023-06-12] VITALS (7 sets, daily range): BP systolic 124–166; BP diastolic 58–75
[2023-06-12] MEDS: RT-ALBUTEROL HFA 8.5 GM INHALER IH SCH ×6 (02:44→21:24)
[2023-06-12] MEDS: ENOXAPARIN 40 MG/0.4 ML SYRINGE SC SCH (05:31)
[2023-06-12] MEDS: inSUlin ASPART 1 UNIT/0.01 ML (PER UNIT) SC SCH ×4 (05:31→20:38)
[2023-06-12] MEDS: CEFEPIME 1,000 MG/NS 50 ML IVPB IV SCH ×6 (05:31→20:38)
[2023-06-12 07:10] LABS: BASOPHILS % (AUTO) 0 % (0-10); EOSINOPHILS # (AUTO) 0.1 10^3/uL (0.0-0.3); EOSINOPHILS % (AUTO) 0 % (0-10); HEMATOCRIT 30 % (40-54); HEMOGLOBIN 9.6 g/dL (13.3-17.7); LYMPHOCYTES # (AUTO) 1.2 10^3/uL (1.0-4.0); LYMPHOCYTES % (AUTO) 6 % (12-44); MEAN CORPUSCULAR HEMOGLOBIN 27 pg (25-34); MEAN CORPUSCULAR HGB CONC 32 g/dL (32-36); MEAN CORPUSCULAR VOLUME 84 fL (80-99); MEAN PLATELET VOLUME 10.8 fL (9.0-12.2); MONOCYTES # (AUTO) 1.2 10^3/uL (0.0-1.0); MONOCYTES % (AUTO) 6 % (0-12); NEUTROPHILS # (AUTO) 17.2 10^3/uL (1.8-7.8); NEUTROPHILS % (AUTO) 86 % (42-75); PLATELET COUNT 321 10^3/uL (130-400); WHITE BLOOD COUNT 19.9 10^3/uL (4.3-11.0)
[2023-06-12 07:28] LABS: ALBUMIN 3.2 GM/DL (3.2-4.5); BILIRUBIN,TOTAL 0.4 MG/DL (0.1-1.0); CALCIUM 8.8 MG/DL (8.5-10.1); CREATININE SERUM 1.95 MG/DL (0.60-1.30); POTASSIUM 3.9 MMOL/L (3.6-5.0)
[2023-06-12] MEDS: FLUTICASONE/VILANTEROL 100/25 MCG (7 DOSES) IH SCH (07:53)
[2023-06-12] MEDS: TIOTROPIUM INH 4 GM (SPIRIVA Respimat) IH SCH (07:54)
[2023-06-12] MEDS ORDERED: dexAMETHasone INJ 4 MG/ML SDV IV SCH (09:00)
--- NOTE | 2023-06-12 09:07 | Cardiology Progress Note ---
Subjective Date Seen by Provider: Jun 12, 2023 Time Seen by Provider: 09:06 Subjective/Events-last exam Patient was seen at bedside, maintained on BiPAP Focused Exam Time of Focused Exam: 04:45 Objective-Cardiology Exam Last Set of Vital Signs Vital Signs 06/11/23 06/12/23 15:41 04:59 Temp 36.8 Pulse 82 Resp 18 B/P (MAP) 145/75 (98) Pulse Ox 94 O2 Delivery High Flow N/C O2 Flow Rate 9.00 FiO2 40 I&O Intake and Output 06/12/23 00:00 Intake Total 1850 ml Output Total 2850 ml Balance -1000 ml Intake Oral 1800 ml IV Total 50 ml Output Urine Total 2850 ml # Bowel Movements 1 General: Alert, No Acute Distress HEENT: Atraumatic, PERRLA Neck: Supple, No Thyromegaly Lungs: Normal Air Movement Heart: Regular Rate, Normal S1, Normal S2, No Murmurs Abdomen: Normal Bowel Sounds, Soft Extremities: No Edema Skin: No Rashes, No Breakdown, No Significant Lesion Neuro: Normal Speech Psych/Mental Status: Mood NL Results Lab Laboratory Tests 06/12/23 06:59 A/P-Cardiology Admission Diagnosis Acute respiratory failure Non-ST elevation myocardial infarction COVID-19 pneumonia Coronary artery disease Assessment/Plan Status post acute respiratory insufficiency, COVID-19 pneumonia Persistent leukocytosis Back on BiPAP, still having shortness of breath and generalized weakness Non-ST elevation myocardial infarction, underlying chronic left bundle branch block Conservative management is recommended Coronary artery disease, cardiac catheterization was done in April 2021 with moderate disease in the mid right coronary artery with occlusion at the distal right PDA that is a small vessel not amendable to intervention, had multiple stents in the proximal and mid LAD and proximal and mid circumflex artery and they were patent. Mild to moderate in-stent restenosis. His troponin elevation is probably due to the occluded right PDA and small vessel disease. Conservative management is recommended. Anemia, worsening H&H, cannot tolerate aggressive anticoagulation Maintain on PPI and I will add aspirin 81 mg daily and monitor tolerance and response Hypertension, continue to monitor blood pressure Chronic kidney disease stage IV, monitor renal function Chronic left bundle branch block Peripheral arterial disease, chronic pedal edema. Hyperlipidemia, monitor lipids Diabetes mellitus, followed and managed by primary care physician History of chronic back pain FADUMO TALAVERA MD Jun 12, 2023 09:07
[2023-06-12] MEDS: amLODIPine 5 MG TABLET PO SCH (09:43)
[2023-06-12] MEDS: CLOPIDOGREL 75 MG TABLET PO SCH (09:43)
[2023-06-12] MEDS: SENNOSIDES 8.6 MG TABLET PO SCH ×2 (09:44→20:38)
[2023-06-12] MEDS: DOCUSATE SODIUM 100 MG CAPSULE PO SCH ×2 (09:44→20:38)
[2023-06-12] MEDS: ASPIRIN enteric coated 81MG TABLET PO SCH (09:44)
[2023-06-12] MEDS: FUROSEMIDE INJECTION 40 MG/4 ML VIAL IV SCH (09:44)
[2023-06-12] MEDS: PANTOPRAZOLE 40 MG TABLET PO SCH (09:44)
[2023-06-12] MEDS: inSUlin DETERMIR 1 UNIT/0.01 ML (CHARGE PER UNIT) SQ SCH ×2 (09:45→20:38)
[2023-06-12] MEDS: FOLIC ACID 1 MG TAB PO SCH (09:49)
[2023-06-12] MEDS: CYANOCOBALAMIN 1,000 MCG TABLET PO SCH (09:49)
[2023-06-12] MEDS: FLUTICASONE NASAL SPRAY (120 SPRAYS) NS SCH (09:50)
[2023-06-12] MEDS ORDERED: LORazepam 0.5 MG TABLET PO PRN (14:15)
--- NOTE | 2023-06-12 14:37 | Physical Therapy Daily Note ---
PT Daily Note-Current Subjective Patient sitting in bed upon PT arrival, agreeable to treatment but reports he does not want to get out of bed due to having on his CPAP and being tired. Pain Section J - Health Conditions 1. Rarely or not at all 2. Occasionally 3. Frequently 4. Almost constantly 8. Unable to answer Pain Effect on Sleep: 1 Pain Interference with Therapy: 1 Pain Interference w/Day-to-Day: 1 Mental Status Patient Orientation: Person Transfers SCALE: Activities may be completed with or without assistive devices. 2-Reyobhvnbp-jxpsjpg completes the activity by him/herself with no assistance from a helper. 5-Set-up or Clean-up Assistance-helper sets up or cleans up; patient completes activity. [place] assists only prior to or following the activity. 4-Supervision or Touching Assistance-helper provides verbal cues and/or touching/steadying and/or contact guard assistance as patient completes activity. Assistance may be provided throughout the activity or intermittently. 3-Partial/Moderate Assistance-helper does LESS THAN HALF the effort. [place] lifts, holds or supports trunk or limbs, but provides less than half the effort. 2-Substantial/Maximal Assistance-helper does MORE THAN HALF the effort. [place] lifts or holds trunk or limbs and provides more than half the effort. 3-Pwdwizgrv-czxuor does ALL the effort. Patient does none of the effort to complete the activity. Or, the assistance of 2 or more helpers is required for the patient to complete the activity. If activity was not attempted, code reason: 7-Patient Refused. 9-Not Applicable-not attempted and the patient did not perform the activity before the current illness, exacerbation or injury. 10-Not Attempted due to Environmental Limitations-(lack of equipment, weather restraints, etc.). 88-Not Attempted due to Medical Conditions or Safety Concerns. Weight Bearing Right Lower Extremity: Right Full Weight Bearing Left Lower Extremity: Left Full Weight Bearing Exercises Supine Ex: Ankle pumps, Quad Set, Glut sets, Heel Slides, Short Arc Quads, Straight leg raise, Hip abd/add Supine Reps: 20 Assessment Current Status: Poor Progress Patient able to tolerate increased activity this date, but only minimal. Patien t agrees to therapeutic exercise and performs ther ex as listed above. Patient in bed post treatment with all needs met, nursing notified, call light in hand. PT [employer] Goals [employer] [facility] Goals PT [facility] Goals Time Frame: Jun 28, 2023 Roll Left & Right (QC): 6 Sit to Lying (QC): 6 Lying-Sitting on Side/Bed(QC): 6 Sit to Stand (QC): 6 Chair/Zjm-br-Vzbfp Xfer(QC): 6 Toilet Transfer (QC): 6 Does the Patient Walk: Yes Walk 10 feet (QC): 6 Walk 50ft with 2 Turns (QC): 6 Walk 150 ft (QC): 4 PT Plan Treatment/Plan Treatment Plan: Continue Plan of Care Treatment Plan: Bed Mobility, Education, Functional Activity González, Functional Strength, Group Therapy, Gait, Safety, Therapeutic Exercise, Transfers Treatment Duration: Jun 28, 2023 Frequency: 6 times per week Estimated Hrs Per Day: .25 hour per day Patient and/or Family Agrees t: Yes Time Time In: 1406 Time Out: 1420 DATE: Jun 12, 2023 Total Billed Treatment Time: 14 Total Billed Treatment Visit, Ex LISA CORRALES PT Jun 12, 2023 14:37
[2023-06-12] MEDS: TAMSULOSIN 0.4 MG (FLOMAX) CAP PO SCH (17:04)
[2023-06-12] MEDS: MONTELUKAST 10 MG TABLET PO SCH (17:04)
--- NOTE | 2023-06-12 17:42 | Progress Note ---
Subjective Subjective/Events-last exam Seen at about 1150 am. He states he feels short of breath, and worries about his oxygen level. His nurse notes that he frequently asks for bipap, but has not been desaturating on nasal cannula. Focused Exam Time of Focused Exam: 04:45 Objective Exam Last Set of Vital Signs Vital Signs Date Time Temp Pulse Resp B/P (MAP) Pulse Ox O2 Delivery O2 Flow Rate FiO2 06/12/23 15:53 36.6 88 18 145/61 (89) 100 High Flow N/C 10.00 06/11/23 15:41 40 Capillary Refill : Less Than 3 Seconds I&O Intake and Output 06/12/23 00:00 Intake Total 1850 ml Output Total 2850 ml Balance -1000 ml Intake Oral 1800 ml IV Total 50 ml Output Urine Total 2850 ml # Bowel Movements 1 General: Alert, No Acute Distress Lungs: Other (bibasilar rales) Heart: Regular Rate Abdomen: Normal Bowel Sounds, Soft Extremities: No Edema Neuro: Normal Speech Psych/Mental Status: Mood NL Results/Procedures Lab Laboratory Tests 06/11/23 20:57: Glucometer 357H 06/12/23 05:07: Glucometer 167H 06/12/23 06:59: White Blood Count 19.9H, Red Blood Count 3.60L, Hemoglobin 9.6L, Hematocrit 30L, Mean Corpuscular Volume 84, Mean Corpuscular Hemoglobin 27, Mean Corpuscular Hemoglobin Concent 32, Red Cell Distribution Width 15.9H, Platelet Count 321, Mean Platelet Volume 10.8, Immature Granulocyte % (Auto) 2, Neutrophils (%) (Auto) 86H, Lymphocytes (%) (Auto) 6L, Monocytes (%) (Auto) 6, Eosinophils (%) (Auto) 0, Basophils (%) (Auto) 0, Neutrophils # (Auto) 17.2H, Lymphocytes # (Auto) 1.2, Monocytes # (Auto) 1.2H, Eosinophils # (Auto) 0.1, Basophils # (Auto) 0.0, Immature Granulocyte # (Auto) 0.3H, Sodium Level 138, Potassium Level 3.9, Chloride Level 97L, Carbon Dioxide Level 32, Anion Gap 9, Blood Urea Nitrogen 59H, Creatinine 1.95H, Estimat Glomerular Filtration Rate 36, B UN/Creatinine Ratio 30, Glucose Level 106H, Calcium Level 8.8, Corrected Calcium 9.4, Total Bilirubin 0.4, Aspartate Amino Transf (AST/SGOT) 13, Alanine Aminotransferase (ALT/SGPT) 10, Alkaline Phosphatase 55, Total Protein 7.0, Albumin 3.2 06/12/23 11:32: Glucometer 138H 06/12/23 15:53: Glucometer 206H Microbiology 06/08/23 Blood Culture - Preliminary, Resulted Assessment/Plan Assessment/Plan (1) COVID Status: Acute Assessment & Plan: Supportive care, dexamethasone given COPD and COVID, started on cefepime on admit with possible pneumonia, but CXR while with bilateral findings is not significantly changed from last admission. 06/11 decrease dexamethasone dose (2) Acute and chronic respiratory failure Status: Acute Assessment & Plan: Recently discharged with significant home oxygen requirements to SNF, was home for very brief period. COVID likely exacerbating, but unclear how severe given 6 lpm is not significantly above baseline for him. -On 5 lpm this morning, used bipap only overnight. 06/12- suspect some of his bipap use is related to anxiety/shortness of air sensation as he is maintaining adequate respiratory effort and oxygenation on high flow nasal cannula which he uses at home, will try low dose benzo (3) COPD (chronic obstructive pulmonary disease) Onset Date: Unknown Status: Chronic (4) Chronic kidney disease (CKD) Status: Acute Qualifiers: Qualified Codes: N18.4 - Chronic kidney disease, stage 4 (severe) (5) CHF (congestive heart failure) Status: Chronic Assessment & Plan: Furosemide 40 mg IV BID, change to oral 06/12 Qualifiers: (6) CAD (coronary artery disease) Onset Date: Unknown Status: Chronic (7) NSTEMI (non-ST elevated myocardial infarction) Status: Acute Assessment & Plan: Appreciate Cardiology recommendations, recommend conser vative treatment, cannot tolerate aggressive anticoagulation due to significant anemia. (8) Diastolic heart failure Status: Chronic Assessment & Plan: On IV lasix BID given bilateral lung findings on CXR with possible edema. Qualifiers: Qualified Codes: I50.32 - Chronic diastolic (congestive) heart failure (9) Elevated d-dimer Status: Acute Assessment & Plan: Significantly increased from last hospitalization, cannot obtain CTA due to kidney function. Possibly due to COVID. Oxygenation not far from baseline, consider V/Q if worsening. Cannot tolerate aggressive anticoagulation due to significant anemia. (10) DVT prophylaxis Status: Acute Assessment & Plan: Enoxaparin TRICIA BHATTI MD Jun 12, 2023 17:42
[2023-06-13] VITALS (7 sets, daily range): BP systolic 133–159; BP diastolic 60–76
[2023-06-13] MEDS: RT-ALBUTEROL HFA 8.5 GM INHALER IH SCH ×6 (02:09→22:34)
[2023-06-13 04:25] LABS: BASOPHILS % (AUTO) 0 % (0-10); EOSINOPHILS # (AUTO) 0.1 10^3/uL (0.0-0.3); EOSINOPHILS % (AUTO) 0 % (0-10); HEMATOCRIT 25 % (40-54); LYMPHOCYTES # (AUTO) 0.9 10^3/uL (1.0-4.0); LYMPHOCYTES % (AUTO) 6 % (12-44); MEAN CORPUSCULAR HEMOGLOBIN 27 pg (25-34); MEAN CORPUSCULAR HGB CONC 32 g/dL (32-36); MEAN CORPUSCULAR VOLUME 83 fL (80-99); MEAN PLATELET VOLUME 10.5 fL (9.0-12.2); MONOCYTES # (AUTO) 0.9 10^3/uL (0.0-1.0); MONOCYTES % (AUTO) 6 % (0-12); NEUTROPHILS # (AUTO) 12.6 10^3/uL (1.8-7.8); NEUTROPHILS % (AUTO) 86 % (42-75); PLATELET COUNT 241 10^3/uL (130-400); WHITE BLOOD COUNT 14.7 10^3/uL (4.3-11.0)
[2023-06-13 04:35] LABS: ALBUMIN 2.9 GM/DL (3.2-4.5)
[2023-06-13 04:36] LABS: POTASSIUM 3.9 MMOL/L (3.6-5.0)
[2023-06-13 04:37] LABS: CALCIUM 8.6 MG/DL (8.5-10.1)
[2023-06-13 04:38] LABS: TOTAL PROTEIN 6.6 GM/DL (6.4-8.2)
[2023-06-13 04:40] LABS: BILIRUBIN,TOTAL 0.3 MG/DL (0.1-1.0)
[2023-06-13 04:41] LABS: CREATININE SERUM 2.01 MG/DL (0.60-1.30)
[2023-06-13] MEDS: CEFEPIME 1,000 MG/NS 50 ML IVPB IV SCH ×2 (05:17)
[2023-06-13] MEDS: FUROSEMIDE 40 MG TABLET PO SCH ×2 (05:17→17:44)
[2023-06-13] MEDS: inSUlin ASPART 1 UNIT/0.01 ML (PER UNIT) SC SCH ×4 (05:17→20:21)
[2023-06-13] MEDS: ENOXAPARIN 40 MG/0.4 ML SYRINGE SC SCH (05:17)
[2023-06-13] MEDS: CYANOCOBALAMIN 1,000 MCG TABLET PO SCH (08:57)
[2023-06-13] MEDS: dexAMETHasone 6 MG TABLET PO SCH (08:57)
[2023-06-13] MEDS: PANTOPRAZOLE 40 MG TABLET PO SCH (08:57)
[2023-06-13] MEDS: DOCUSATE SODIUM 100 MG CAPSULE PO SCH ×2 (08:58→20:22)
[2023-06-13] MEDS: CLOPIDOGREL 75 MG TABLET PO SCH (08:58)
[2023-06-13] MEDS: ASPIRIN enteric coated 81MG TABLET PO SCH (08:58)
[2023-06-13] MEDS: SENNOSIDES 8.6 MG TABLET PO SCH ×2 (08:58→20:22)
[2023-06-13] MEDS: amLODIPine 5 MG TABLET PO SCH (08:58)
[2023-06-13] MEDS: FOLIC ACID 1 MG TAB PO SCH (08:58)
[2023-06-13] MEDS: FLUTICASONE NASAL SPRAY (120 SPRAYS) NS SCH (08:59)
[2023-06-13] MEDS: inSUlin DETERMIR 1 UNIT/0.01 ML (CHARGE PER UNIT) SQ SCH ×2 (08:59→20:20)
--- NOTE | 2023-06-13 10:10 | Physical Therapy Progress Note ---
Therapy Progress Note Patient on BiPap and declined OOB activity and exercise on this date. Will attempt tomorrow. YUNG HASSAN PT Jun 13, 2023 10:10
[2023-06-13] MEDS: FLUTICASONE/VILANTEROL 100/25 MCG (7 DOSES) IH SCH (14:11)
[2023-06-13] MEDS: TIOTROPIUM INH 4 GM (SPIRIVA Respimat) IH SCH (14:12)
--- NOTE | 2023-06-13 14:23 | Progress Note ---
Subjective Subjective/Events-last exam Pt sleeping with bipap in place, wakes up and speaks easily when questioned. States he feels about the same. Says his tested positive for COVID and is doing as well as she can be at home. Focused Exam Time of Focused Exam: 04:45 Objective Exam Last Set of Vital Signs Vital Signs Date Time Temp Pulse Resp B/P (MAP) Pulse Ox O2 Delivery O2 Flow Rate FiO2 06/13/23 14:17 75 27 97 35.00 06/13/23 11:58 36.2 133/64 (87) NIV Bilevel 06/11/23 15:41 40 Capillary Refill : Less Than 3 Seconds I&O Intake and Output 06/13/23 00:00 Intake Total 1590 ml Output Total 3400 ml Balance -1810 ml Intake Oral 1590 ml Output Urine Total 3400 ml General: Alert, No Acute Distress Lungs: Other (bibasilar rales) Heart: Regular Rate, No Murmurs Abdomen: Normal Bowel Sounds, Soft Neuro: Normal Speech Psych/Mental Status: Mood NL Results/Procedures Lab Laboratory Tests 06/12/23 15:53: Glucometer 206H 06/12/23 20:14: Glucometer 336H 06/13/23 04:15: White Blood Count 14.7H, Red Blood Count 3.00L, Hemoglobin 8.0L, Hematocrit 25L, Mean Corpuscular Volume 83, Mean Corpuscular Hemoglobin 27, Mean Corpuscular Hemoglobin Concent 32, Red Cell Distribution Width 16.0H, Platelet Count 241, Mean Platelet Volume 10.5, Immature Granulocyte % (Auto) 1, Neutrophils (%) (Auto) 86H, Lymphocytes (%) (Auto) 6L, Monocytes (%) (Auto) 6, Eosinophils (%) (Auto) 0, Basophils (%) (Auto) 0, Neutrophils # (Auto) 12.6H, Lymphocytes # (Auto) 0.9L, Monocytes # (Auto) 0.9, Eosinophils # (Auto) 0.1, Basophils # (Auto) 0.0, Immature Granulocyte # (Auto) 0.2H, Sodium Level 140, Potassium Level 3.9, Chloride Level 99, Carbon Dioxide Level 26, Anion Gap 15H, Blood Urea Nitrogen 60H, Creatinine 2.01H, Estimat Glomerular Filtration Rate 35, BUN/Creatinine Ratio 30, Glucose Level 165H, Calcium Level 8.6, Corrected Calcium 9.5, Total Bilirubin 0.3, Aspartate Amino Transf (AST/SGOT) 13, Alanine Aminotransferase (ALT/SGPT) 10, Alkaline Phosphatase 61, Total Protein 6.6, Albumin 2.9L 06/13/23 11:58: Glucometer 259H Microbiology 06/08/23 Blood Culture - Preliminary, Resulted Assessment/Plan Assessment/Plan (1) COVID Status: Acute Assessment & Plan: Supportive care, dexamethasone given COPD and COVID, started on cefepime on admit with possible pneumonia, but CXR while with bilateral findings is not significantly changed from last admission. 06/11 decrease dexamethasone dose, complete 10 day course (2) Acute and chronic respiratory failure Status: Acute Assessment & Plan: Recently discharged with significant home oxygen requirements to SNF, was home for very brief period. COVID likely exacerbating, but unclear how severe given 6 lpm is not significantly above baseline for him. -On 5 lpm this morning, used bipap only overnight. 06/12- suspect some of his bipap use is related to anxiety/shortness of air sensation as he is maintaining adequate respiratory effort and oxygenation on high flow nasal cannula which he uses at home, will try low dose benzo (3) COPD (chronic obstructive pulmonary disease) Onset Date: Unknown Status: Chronic (4) Chronic kidney disease (CKD) Status: Acute Qualifiers: Qualified Codes: N18.4 - Chronic kidney disease, stage 4 (severe) (5) CHF (congestive heart failure) Status: Chronic Assessment & Plan: Furosemide 40 mg IV BID, change to oral 06/12 Qualifiers: (6) CAD (coronary artery disease) Onset Date: Unknown Status: Chronic (7) NSTEMI (non-ST elevated myocardial infarction) Status: Acute Assessment & Plan: Appreciate Cardiology recommendations, recommend conservative treatment, cannot tolerate aggressive anticoagulation due to significant anemia. (8) Diastolic heart failure Status: Chronic Assessment & Plan: On IV lasix BID given bilateral lung findings on CXR with possible edema. Qualifiers: Qualified Codes: I50.32 - Chronic diastolic (congestive) heart failure (9) Elevated d-dimer Status: Acute Assessment & Plan: Significantly increased from last hospitalization, cannot ob tain CTA due to kidney function. Possibly due to COVID. Oxygenation not far from baseline, consider V/Q if worsening. Cannot tolerate aggressive anticoagulation due to significant anemia. (10) DVT prophylaxis Status: Acute Assessment & Plan: Enoxaparin TRICIA BHATTI MD Jun 13, 2023 14:23
--- NOTE | 2023-06-13 16:32 | Cardiology Progress Note ---
Subjective Date Seen by Provider: Jun 13, 2023 Time Seen by Provider: 15:00 Subjective/Events-last exam Patient states that seems to be doing better. Notes that he prefers to sleep with his BiPAP on but otherwise no acute concerns. Worried about his at home who also has COVID Focused Exam Time of Focused Exam: 04:45 Lactic Acid Level Gen: NAD, resting comfortably Neck: No bruits, no JVD Lungs: Diminished breath sounds bilaterally but otherwise CTA B; no w-r-r CV: nl s1/s2; no murmurs gallops or rubs. Regular rate and rhythm. g-r; Abd: gravid uterus; + BS, soft NT,ND Ext: 2+ radial and DP pulses; no c-c-e, wwp Objective-Cardiology Exam Last Set of Vital Signs Vital Signs 06/11/23 06/13/23 15:41 15:28 Temp 36.4 Pulse 72 Resp 20 B/P (MAP) 140/63 (88) Pulse Ox 98 O2 Delivery NIV Bilevel O2 Flow Rate 35.00 FiO2 40 I&O Intake and Output 06/13/23 00:00 Intake Total 1590 ml Output Total 3400 ml Balance -1810 ml Intake Oral 1590 ml Output Urine Total 3400 ml General: Alert, No Acute Distress HEENT: Atraumatic, PERRLA Neck: Supple, No Thyromegaly Lungs: Other (bibasilar rales) Heart: Regular Rate, No Murmurs Abdomen: Normal Bowel Sounds, Soft Extremities: No Edema Skin: No Rashes, No Breakdown, No Significant Lesion Neuro: Normal Speech Psych/Mental Status: Mood NL Results Lab Laboratory Tests 06/13/23 04:15 A/P-Cardiology Admission Diagnosis Acute respiratory failure Non-ST elevation myocardial infarction COVID-19 pneumonia Coronary artery disease Assessment/Plan ## Status post acute respiratory insufficiency, COVID-19 pneumonia; On intermittent BiPAP. Maintaining saturations with NC, however. IMproving slowly ## Non-ST elevation myocardial infarction, underlying chronic left bundle branch block -Hx of cardiac catheterization in April 2021 with moderate disease in the mid right coronary artery with occlusion at the distal right PDA that is a small vessel not amendable to intervention, had multiple stents in the proximal and mid LAD and proximal and mid circumflex artery and they were patent. Mild to moderate in-stent restenosis. His troponin elevation is probably due to the occluded right PDA and small vessel disease. Conservative management is recommended.cont conservative management - cont asa/statin/toprol ## Anemia; Hgb 8 cannot tolerate aggressive anticoagulation - cont PPI - currently on ASA/Plavix; could consider single agent if Hgb cont to downtrend. ## Hypertension, ststolics 130s - cont toprol and norvasc ] ## Chronic kidney disease stage IV, Cr 2.0 ## Hyperlipidemia, - cont atorvastatin ## Diabetes mellitus, - plan per primary team. ## Dispo: We will continue to follow along but will see only on as needed basis through the weekend; pl call with questions. DENZEL MA MD Jun 13, 2023 4:32 pm
[2023-06-13] MEDS: MONTELUKAST 10 MG TABLET PO SCH (17:44)
[2023-06-13] MEDS: TAMSULOSIN 0.4 MG (FLOMAX) CAP PO SCH (17:44)
[2023-06-14] MEDS: MELATONIN 3 MG TABLET PO PRN ×2 (00:37→20:23)
[2023-06-14] MEDS: RT-ALBUTEROL HFA 8.5 GM INHALER IH SCH ×6 (02:27→21:41)
[2023-06-14 03:12] VITALS: BP 139/63
[2023-06-14] MEDS: ENOXAPARIN 40 MG/0.4 ML SYRINGE SC SCH (05:54)
[2023-06-14] MEDS: FUROSEMIDE 40 MG TABLET PO SCH ×2 (05:55→16:38)
[2023-06-14] MEDS: inSUlin ASPART 1 UNIT/0.01 ML (PER UNIT) SC SCH ×4 (06:04→20:38)
[2023-06-14 06:36] LABS: BASOPHILS % (AUTO) 0 % (0-10); EOSINOPHILS # (AUTO) 0.1 10^3/uL (0.0-0.3); EOSINOPHILS % (AUTO) 1 % (0-10); HEMATOCRIT 26 % (40-54); HEMOGLOBIN 8.2 g/dL (13.3-17.7); LYMPHOCYTES % (AUTO) 7 % (12-44); MEAN CORPUSCULAR HEMOGLOBIN 26 pg (25-34); MEAN CORPUSCULAR HGB CONC 32 g/dL (32-36); MEAN CORPUSCULAR VOLUME 82 fL (80-99); MEAN PLATELET VOLUME 10.9 fL (9.0-12.2); MONOCYTES # (AUTO) 0.7 10^3/uL (0.0-1.0); MONOCYTES % (AUTO) 5 % (0-12); NEUTROPHILS # (AUTO) 13.1 10^3/uL (1.8-7.8); NEUTROPHILS % (AUTO) 87 % (42-75); PLATELET COUNT 249 10^3/uL (130-400); WHITE BLOOD COUNT 15.1 10^3/uL (4.3-11.0)
[2023-06-14] MEDS: FLUTICASONE/VILANTEROL 100/25 MCG (7 DOSES) IH SCH (06:52)
[2023-06-14] MEDS: TIOTROPIUM INH 4 GM (SPIRIVA Respimat) IH SCH (06:52)
[2023-06-14 07:02] LABS: ALBUMIN 2.8 GM/DL (3.2-4.5); BILIRUBIN,TOTAL 0.3 MG/DL (0.1-1.0); CALCIUM 8.5 MG/DL (8.5-10.1); CREATININE SERUM 1.72 MG/DL (0.60-1.30); POTASSIUM 3.7 MMOL/L (3.6-5.0); TOTAL PROTEIN 6.2 GM/DL (6.4-8.2)
[2023-06-14 07:26] VITALS: BP 139/63
[2023-06-14 07:53] VITALS: BP 152/70
[2023-06-14] MEDS: FLUTICASONE NASAL SPRAY (120 SPRAYS) NS SCH (09:23)
[2023-06-14] MEDS: guaiFENesin 600 MG TABLET PO PRN (09:23)
[2023-06-14] MEDS: SENNOSIDES 8.6 MG TABLET PO SCH ×2 (09:23→20:23)
[2023-06-14] MEDS: PANTOPRAZOLE 40 MG TABLET PO SCH (09:23)
[2023-06-14] MEDS: ASPIRIN enteric coated 81MG TABLET PO SCH (09:23)
[2023-06-14] MEDS: CLOPIDOGREL 75 MG TABLET PO SCH (09:23)
[2023-06-14] MEDS: FOLIC ACID 1 MG TAB PO SCH (09:23)
[2023-06-14] MEDS: DOCUSATE SODIUM 100 MG CAPSULE PO SCH ×2 (09:23→20:22)
[2023-06-14] MEDS: dexAMETHasone 6 MG TABLET PO SCH (09:23)
[2023-06-14] MEDS: amLODIPine 5 MG TABLET PO SCH (09:23)
[2023-06-14] MEDS: CYANOCOBALAMIN 1,000 MCG TABLET PO SCH (09:23)
[2023-06-14] MEDS: inSUlin DETERMIR 1 UNIT/0.01 ML (CHARGE PER UNIT) SQ SCH ×2 (09:24→20:38)
[2023-06-14] MEDS: RT-ALBUTEROL HFA 8.5 GM INHALER IH PRN (09:24)
--- NOTE | 2023-06-14 10:44 | Physical Therapy Progress Note ---
Therapy Progress Note Pt refused PT this AM. Pt was given multiple PT intervention options and refused all. DELORES SANCHEZ TURKISH RUBBER Jun 14, 2023 10:44
--- NOTE | 2023-06-14 10:58 | Progress Note - Hospitalist ---
Subjective HPI/CC On Admission Date Seen by Provider: Jun 14, 2023 Time Seen by Provider: 10:52 CC: Acute on chronic hypoxic resp failure with COVID HPI: This is a 72yoWM known to me from multiple admits for CHF and BHAVANA/CKD and severe COPD who just DC home from [facility] on but became ill and short of breath requiring ER visit found to have AECOPD with COVID. Subjective/Events-last exam Patient reports some generalized weakness about the same but denies chills fever reports baseline sputum production usual grayish color no hemoptysis noted no chest pain no orthopnea or PND and reports that he came in with leg edema which is now resolved. Focused Exam Time of Focused Exam: 04:45 Objective Exam Vital Signs Vital Signs Date Time Temp Pulse Resp B/P (MAP) Pulse Ox O2 Delivery O2 Flow Rate FiO2 06/14/23 08:00 High Flow N/C 5.00 40 06/14/23 07:53 36.5 65 18 152/70 (97) 98 Capillary Refill : Less Than 3 Seconds General Appearance: No Apparent Distress, Chronically ill Respiratory: No Accessory Muscle Use, No Respiratory Distress, Other (Scattered rhonchi throughout except for right base where there is absent breath sounds little more congestion in the right midlung field compared to the left no wheezing noted on regular inspiration) Cardiovascular: Regular Rate, Rhythm, No Edema, No Gallop, No JVD, No Murmur Extremity: Non Tender, No Pedal Edema Results/Procedures Lab Laboratory Tests 06/14/23 06:03 Patient resulted labs reviewed. Assessment/Plan Assessment and Plan Assess & Plan/Chief Complaint (1) COVID Status: Acute Assessment & Plan: Supportive care, dexamethasone given COPD and COVID, started on cefepime on admit with possible pneumonia, but CXR while with bilateral findings is not significantly changed from last admission. 06/11 decrease dexamethasone dose, complete 10 day course (2) Acute and chronic respiratory failure Status: Acute Assessment & Plan: Recently discharged with significant home oxygen requirements to SNF, was home for very brief period. COVID likely exacerbating, but unclear how severe given 6 lpm is not significantly above baseline for him. -On 5 lpm this morning, used bipap only overnight. 06/12- suspect some of his bipap use is related to anxiety/shortness of air sensation as he is maintaining adequate respiratory effort and oxygenation on h igh flow nasal cannula which he uses at home, will try low dose benzo 06/14: Slow improvement. With absent breath sounds in the right base with evidence for likely infiltrate and atelectasis on chest x-ray postobstructive process is clearly in the differential in individual who is at significant risk for underlying bronchogenic carcinoma considering heavy smoking history. He has finished course of cefepime has no purulent sputum production no chills or fever he is finishing out dexamethasone which at this point is the most likely cause of his leukocytosis we will continue to monitor. (3) COPD (chronic obstructive pulmonary disease) Onset Date: Unknown Status: Chronic (4) Chronic kidney disease (CKD) Status: Acute Qualifiers: Qualified Codes: N18.4 - Chronic kidney disease, stage 4 (severe) (5) CHF (congestive heart failure) Status: Chronic Assessment & Plan: Furosemide 40 mg IV BID, change to oral 06/12 Qualifiers: (6) CAD (coronary artery disease) Onset Date: Unknown Status: Chronic (7) NSTEMI (non-ST elevated myocardial infarction) Status: Acute Assessment & Plan: Appreciate Cardiology recommendations, recommend conservative treatment, cannot tolerate aggressive anticoagulation due to significant anemia. (8) Diastolic heart failure Status: Chronic Assessment & Plan: On IV lasix BID given bilateral lung findings on CXR with possible edema. Qualifiers: Qualified Codes: I50.32 - Chronic diastolic (congestive) heart failure (9) Elevated d-dimer Status: Acute Assessment & Plan: Significantly increased from last hospitalization, cannot obtain CTA due to kidney function. Possibly due to COVID. Oxygenation not far from baseline, consider V/Q if worsening. Cannot tolerate aggressive anticoagulation due to significant anemia. (10) DVT prophylaxis Status: Acute Assessment & Plan: Enoxaparin Critical Care Critically Ill Patient LAYNE PELLETIER MD Jun 14, 2023 10:57
[2023-06-14 11:01] VITALS: BP 146/67
[2023-06-14 16:07] VITALS: BP 130/62
[2023-06-14] MEDS: MONTELUKAST 10 MG TABLET PO SCH (16:38)
[2023-06-14] MEDS: TAMSULOSIN 0.4 MG (FLOMAX) CAP PO SCH (16:38)
[2023-06-14 19:15] VITALS: BP 127/62
[2023-06-15] VITALS (7 sets, daily range): BP systolic 122–160; BP diastolic 56–73
[2023-06-15] MEDS: RT-ALBUTEROL HFA 8.5 GM INHALER IH SCH ×6 (02:00→22:24)
[2023-06-15] MEDS: FUROSEMIDE 40 MG TABLET PO SCH ×2 (05:43→17:22)
[2023-06-15] MEDS: ENOXAPARIN 40 MG/0.4 ML SYRINGE SC SCH (05:43)
[2023-06-15] MEDS: inSUlin ASPART 1 UNIT/0.01 ML (PER UNIT) SC SCH ×6 (05:44→20:57)
[2023-06-15 06:05] LABS: BASOPHILS % (AUTO) 0 % (0-10); EOSINOPHILS # (AUTO) 0.1 10^3/uL (0.0-0.3); EOSINOPHILS % (AUTO) 1 % (0-10); HEMATOCRIT 25 % (40-54); LYMPHOCYTES # (AUTO) 1.1 10^3/uL (1.0-4.0); LYMPHOCYTES % (AUTO) 7 % (12-44); MEAN CORPUSCULAR HEMOGLOBIN 27 pg (25-34); MEAN CORPUSCULAR HGB CONC 32 g/dL (32-36); MEAN CORPUSCULAR VOLUME 83 fL (80-99); MEAN PLATELET VOLUME 11.4 fL (9.0-12.2); MONOCYTES # (AUTO) 0.8 10^3/uL (0.0-1.0); MONOCYTES % (AUTO) 5 % (0-12); NEUTROPHILS # (AUTO) 13.7 10^3/uL (1.8-7.8); NEUTROPHILS % (AUTO) 86 % (42-75); PLATELET COUNT 265 10^3/uL (130-400); WHITE BLOOD COUNT 15.9 10^3/uL (4.3-11.0)
[2023-06-15 06:22] LABS: ALBUMIN 2.7 GM/DL (3.2-4.5); BILIRUBIN,TOTAL 0.3 MG/DL (0.1-1.0); CALCIUM 8.3 MG/DL (8.5-10.1); CREATININE SERUM 2.1 MG/DL (0.60-1.30); POTASSIUM 3.7 MMOL/L (3.6-5.0); TOTAL PROTEIN 6.1 GM/DL (6.4-8.2)
[2023-06-15 06:38] LABS: ANISOCYTOSIS SLIGHT; EOSINOPHILS % (MANUAL) 1 %; HYPOCHROMASIA SLIGHT; LYMPHOCYTES % (MANUAL) 7 %; MICROCYTOSIS SLIGHT; MONOCYTES % (MANUAL) 5 %; NEUTROPHILS % (MANUAL) 87 %; POIKILOCYTOSIS SLIGHT
[2023-06-15 06:39] LABS: SCHISTOCYTES SLIGHT
[2023-06-15] MEDS: TIOTROPIUM INH 4 GM (SPIRIVA Respimat) IH SCH (07:24)
[2023-06-15] MEDS: FLUTICASONE/VILANTEROL 100/25 MCG (7 DOSES) IH SCH (07:25)
[2023-06-15] MEDS: amLODIPine 5 MG TABLET PO SCH (09:13)
[2023-06-15] MEDS: CLOPIDOGREL 75 MG TABLET PO SCH (09:13)
[2023-06-15] MEDS: ASPIRIN enteric coated 81MG TABLET PO SCH (09:13)
[2023-06-15] MEDS: inSUlin DETERMIR 1 UNIT/0.01 ML (CHARGE PER UNIT) SQ SCH ×2 (09:13→20:57)
[2023-06-15] MEDS: dexAMETHasone 6 MG TABLET PO SCH (09:13)
[2023-06-15] MEDS: PANTOPRAZOLE 40 MG TABLET PO SCH (09:13)
[2023-06-15] MEDS: SENNOSIDES 8.6 MG TABLET PO SCH ×2 (09:13→20:28)
[2023-06-15] MEDS: CYANOCOBALAMIN 1,000 MCG TABLET PO SCH (09:13)
[2023-06-15] MEDS: DOCUSATE SODIUM 100 MG CAPSULE PO SCH ×2 (09:14→20:28)
[2023-06-15] MEDS: FLUTICASONE NASAL SPRAY (120 SPRAYS) NS SCH (09:14)
[2023-06-15] MEDS: FOLIC ACID 1 MG TAB PO SCH (09:14)
--- NOTE | 2023-06-15 11:14 | Progress Note - Hospitalist ---
Subjective HPI/CC On Admission Date Seen by Provider: Jun 15, 2023 Time Seen by Provider: 11:10 CC: Acute on chronic hypoxic resp failure with COVID HPI: This is a 72yoWM known to me from multiple admits for CHF and BHAVANA/CKD and severe COPD who just DC home from [facility] on but became ill and short of breath requiring ER visit found to have AECOPD with COVID. Subjective/Events-last exam Patient denies night sweats chills fever or purulent sputum production just reporting generalized weakness and usual aches and pains. Focused Exam Time of Focused Exam: 04:45 Objective Exam Vital Signs Vital Signs Date Time Temp Pulse Resp B/P (MAP) Pulse Ox O2 Delivery O2 Flow Rate FiO2 06/15/23 11:05 36.6 69 18 132/63 (86) 97 Nasal Cannula 4.00 06/15/23 08:00 40 Capillary Refill : Less Than 3 Seconds General Appearance: No Apparent Distress, Chronically ill Respiratory: No Accessory Muscle Use, No Respiratory Distress, Other (Unchanged from yesterday scattered rhonchi worse in the right middle lobe with absent right lower lobe breath sounds) Cardiovascular: Regular Rate, Rhythm, No Edema, No Gallop, No JVD, No Murmur Gastrointestinal: Normal Bowel Sounds, Non Tender, Soft Results/Procedures Lab Laboratory Tests 06/15/23 05:16 Patient resulted labs reviewed. Assessment/Plan Assessment and Plan Assess & Plan/Chief Complaint (1) COVID Status: Acute Assessment & Plan: Supportive care, dexamethasone given COPD and COVID, started on cefepime on admit with possible pneumonia, but CXR while with bilateral findings is not significantly changed from last admission. 06/11 decrease dexamethasone dose, complete 10 day course (2) Acute and chronic respiratory failure Status: Acute Assessment & Plan: Recently discharged with significant home oxygen requirements to SNF, was home for very brief period. COVID likely exacerbating, but unclear how severe given 6 lpm is not significantly above baseline for him. -On 5 lpm this morning, used bipap only overnight. 06/12- suspect some of his bipap use is related to anxiety/shortness of air sensation as he is maintaining adequate respiratory effort and oxygenation on high flow nasal cannula which he uses at home, will try low dose benzo 06/14: Slow improvement. With absent breath sounds in the right base with evidence for likely infiltrate and atelectasis on chest x-ray postobstructive process is clearly in the differential in individual who is at significant risk for underlying bronchogenic carcinoma considering heavy smoking history. He has finished course of cefepime has no purulent sputum production no chills or fever he is finishing out dexamethasone which at this point is the most likely cause of his leukocytosis we will continue to monitor. 06/15 slow improvement with underlying severe deconditioning. No changes from above except that blood sugar is not under reasonable control on basal insulin and sliding scale insulin. We will add NovoLog 10 units AC. This will likely need to be reduced when his course of dexamethasone is finished I believe after 2 more doses. (3) COPD (chronic obstructive pulmonary disease) Onset Date: Unknown Status: Chronic (4) Chronic kidney disease (CKD) Status: Acute Qualifiers: Qualified Codes: N18.4 - Chronic kidney disease, stage 4 (severe) (5) CHF (congestive heart failure) Status: Chronic Assessment & Plan: Furosemide 40 mg IV BID, change to oral 06/12 Qualifiers: (6) CAD (coronary artery disease) Onset Date: Unknown Status: Chronic (7) NSTEMI (non-ST elevated myocardial infarction) Status: Acute Assessment & Plan: Appreciate Cardiology recommendations, recommend conservative treatment, cannot tolerate aggressive anticoagulation due to significant anemia. (8) Diastolic heart failure Status: Chronic Assessment & Plan: On IV lasix BID given bilateral lung findings on CXR with possible edema. Qualifiers: Qualified Codes: I50.32 - Chronic diastolic (congestive) heart failure (9) Elevated d-dimer Status: Acute Assessment & Plan: Significantly increased from last hospitalization, cannot obtain CTA due to kidney function. Possibly due to COVID. Oxygenation not far from baseline, consider V/Q if worsening. Cannot tolerate aggressive anticoagulation due to significant anemia. (10) DVT prophylaxis Status: Acute Assessment & Plan: Enoxaparin Critical Care Critically Ill Patient LAYNE PELLETIER MD Jun 15, 2023 11:14
[2023-06-15] MEDS ORDERED: inSUlin ASPART 1 UNIT/0.01 ML (PER UNIT) SC SCH (12:00)
[2023-06-15] MEDS ORDERED: morphine INJ 4 MG/ML 1 ML (VIAL/SYRINGE) IVP PRN (12:45)
[2023-06-15] MEDS: TAMSULOSIN 0.4 MG (FLOMAX) CAP PO SCH (17:22)
[2023-06-15] MEDS: MONTELUKAST 10 MG TABLET PO SCH (17:22)
[2023-06-15] MEDS: MELATONIN 3 MG TABLET PO PRN (20:26)
[2023-06-16] MEDS: RT-ALBUTEROL HFA 8.5 GM INHALER IH SCH ×6 (02:26→22:07)
[2023-06-16 03:04] VITALS: BP 158/71
[2023-06-16] MEDS: ENOXAPARIN 40 MG/0.4 ML SYRINGE SC SCH (05:02)
[2023-06-16] MEDS: FUROSEMIDE 40 MG TABLET PO SCH ×2 (05:02→16:32)
[2023-06-16] MEDS: inSUlin ASPART 1 UNIT/0.01 ML (PER UNIT) SC SCH ×7 (06:17→20:28)
[2023-06-16 07:06] LABS: BASOPHILS % (AUTO) 0 % (0-10); EOSINOPHILS # (AUTO) 0.1 10^3/uL (0.0-0.3); EOSINOPHILS % (AUTO) 1 % (0-10); HEMATOCRIT 26 % (40-54); HEMOGLOBIN 8.4 g/dL (13.3-17.7); LYMPHOCYTES # (AUTO) 1.3 10^3/uL (1.0-4.0); LYMPHOCYTES % (AUTO) 7 % (12-44); MEAN CORPUSCULAR HEMOGLOBIN 26 pg (25-34); MEAN CORPUSCULAR HGB CONC 32 g/dL (32-36); MEAN CORPUSCULAR VOLUME 83 fL (80-99); MONOCYTES # (AUTO) 0.6 10^3/uL (0.0-1.0); MONOCYTES % (AUTO) 4 % (0-12); NEUTROPHILS # (AUTO) 15.8 10^3/uL (1.8-7.8); NEUTROPHILS % (AUTO) 88 % (42-75); PLATELET COUNT 290 10^3/uL (130-400)
[2023-06-16 07:26] LABS: ALBUMIN 2.8 GM/DL (3.2-4.5); BILIRUBIN,TOTAL 0.2 MG/DL (0.1-1.0); CALCIUM 8.2 MG/DL (8.5-10.1); CREATININE SERUM 2.54 MG/DL (0.60-1.30); POTASSIUM 3.7 MMOL/L (3.6-5.0); TOTAL PROTEIN 6.3 GM/DL (6.4-8.2)
[2023-06-16] MEDS: SENNOSIDES 8.6 MG TABLET PO SCH ×2 (08:11→20:28)
[2023-06-16] MEDS: ASPIRIN enteric coated 81MG TABLET PO SCH (08:11)
[2023-06-16] MEDS: amLODIPine 5 MG TABLET PO SCH (08:11)
[2023-06-16] MEDS: DOCUSATE SODIUM 100 MG CAPSULE PO SCH ×2 (08:11→20:28)
[2023-06-16] MEDS: CLOPIDOGREL 75 MG TABLET PO SCH (08:11)
[2023-06-16] MEDS: PANTOPRAZOLE 40 MG TABLET PO SCH (08:11)
[2023-06-16] MEDS: dexAMETHasone 6 MG TABLET PO SCH (08:15)
[2023-06-16] MEDS: CYANOCOBALAMIN 1,000 MCG TABLET PO SCH (08:15)
[2023-06-16] MEDS: FOLIC ACID 1 MG TAB PO SCH (08:15)
[2023-06-16] MEDS: inSUlin DETERMIR 1 UNIT/0.01 ML (CHARGE PER UNIT) SQ SCH ×2 (08:17→20:28)
[2023-06-16 08:20] VITALS: BP 166/80
--- NOTE | 2023-06-16 09:24 | Cardiology Progress Note ---
Subjective Date Seen by Provider: Jun 16, 2023 Time Seen by Provider: 08:45 Subjective/Events-last exam Patient asleep in bed, easily awakens to answer questions. Denies any chest pain Focused Exam Time of Focused Exam: 04:45 Objective-Cardiology Exam Last Set of Vital Signs Vital Signs 06/15/23 06/16/23 06/16/23 08:00 08:20 11:29 Temp 36.0 Pulse 69 Resp 16 B/P (MAP) 148/69 (95) Pulse Ox 93 O2 Delivery NIV Bilevel O2 Flow Rate 4.00 FiO2 40 I&O Intake and Output 06/16/23 00:00 Intake Total 2185 ml Output Total 3700 ml Balance -1515 ml Intake Oral 2185 ml Output Urine Total 3700 ml General: Alert, No Acute Distress HEENT: Atraumatic, PERRLA Neck: Supple, No Thyromegaly Lungs: Other (bibasilar rales) Heart: Regular Rate, No Murmurs Abdomen: Normal Bowel Sounds, Soft Extremities: No Edema Skin: No Rashes, No Breakdown, No Significant Lesion Neuro: Normal Speech Psych/Mental Status: Mood NL Results Lab Laboratory Tests 06/16/23 06:45 A/P-Cardiology Admission Diagnosis Acute respiratory failure Non-ST elevation myocardial infarction COVID-19 pneumonia Coronary artery disease Assessment/Plan Status post acute respiratory insufficiency, COVID-19 pneumonia Improving Non-ST elevation myocardial infarction, underlying chronic left bundle branch block Conservative management is recommended Coronary artery disease, cardiac catheterization was done in April 2021 with moderate disease in the mid right coronary artery with occlusion at the distal right PDA that is a small vessel not amendable to intervention, had multiple stents in the proximal and mid LAD and proximal and mid circumflex artery and they were patent. Mild to moderate in-stent restenosis. His troponin elevation is probably due to the occluded right PDA and small vessel disease. Conservative management is recommended. Anemia, worsening H&H, cannot tolerate aggressive anticoagulation Maintain on PPI and I will add aspirin 81 mg daily and monitor tolerance and response Hypertension, continue to monitor blood pressure Chronic kidney disease stage IV, monitor renal function Chronic left bundle branch block Peripheral arterial disease, chronic pedal edema. Hyperlipidemia, monitor lipids Diabetes mellitus, followed and managed by primary care physician History of chronic back pain Supervisory-Addendum Brief Supervisory Addendum Participated in pt care: history, MDM, physical Personally performed: exam, history, MDM Care discussed with: TON Results interpretation: Verified all documentation Notes: Patient was seen and evaluated with Roger, examination performed, management plan was discussed, agree with the current scribed note, I made few changes to the note using Italic font Patient denied any chest pain Monitor H&H Monitor renal function ROGER GRANT Jun 16, 2023 09:24 FADUMO TALAVERA MD Jun 16, 2023 12:53
[2023-06-16] MEDS: FLUTICASONE NASAL SPRAY (120 SPRAYS) NS SCH ×2 (10:00→18:42)
[2023-06-16] MEDS: FLUTICASONE/VILANTEROL 100/25 MCG (7 DOSES) IH SCH (10:28)
[2023-06-16] MEDS: TIOTROPIUM INH 4 GM (SPIRIVA Respimat) IH SCH (10:28)
--- NOTE | 2023-06-16 11:24 | Physical Therapy Progress Note ---
Therapy Progress Note Patient declined PT on this date. Will attempt later today if time permits or tomorrow YUNG Aviles PT Jun 16, 2023 11:24
[2023-06-16 11:29] VITALS: BP 148/69
--- NOTE | 2023-06-16 11:29 | Progress Note - Hospitalist ---
BEV COLLIER 06/16/23 1129: Subjective HPI/CC On Admission Date Seen by Provider: Jun 16, 2023 Time Seen by Provider: 09:02 CC: Acute on chronic hypoxic resp failure with COVID HPI: This is a 72yoWM known to me from multiple admits for CHF and BHAVANA/CKD and severe COPD who just DC home from [facility] on but became ill and short of breath requiring ER visit found to have AECOPD with COVID. Subjective/Events-last exam 06/16/2023: CC: Acute on Chronic Hypoxic Respiratory Failure HPI/update: Gilmar, 73M, notes that he is feeling slightly better. When asked about sleep, he said that it has been hard for him to sleep at nights while in the hospital. He notes that he sometimes struggles with sleeping at home. He denies the cause of sleeplessness to be respiratory, saying that he feels like he can breathe okay at night. Gilmar continues to use the BiPAP when sleeping. When awake he uses the H/F NC at 4L. He says that he doesn't feel like his respiratory status has changed much, but it hasnt gotten worse. He notes a lot of anxiety currently about his breathing. He mentioned that it was one of the scariest moments to not be able to breathe, so he wants to use the oxygen as much as he can. He notes that the Lorazepam that was given didn't help and he didnt want to take it. An additional concern he mentioned was his code status, with it originally being DNR. He noted that he wants to be a full code, which has been updated in his chart, on the door, and the DNR bracelet has been removed. Gilmar says that he has also stopped smoking, with his last day being around . He is in good spirits, appears well. He is able to follow conversations. He wants his medical information told to his since she "knows more about this stuff". He denies a BM and has refused any medication to help with constipation. He is eating well. Labs: BUN increased, Cr increased, WBC increased since yesterday. Review of Systems General: No Chills, No Night Sweats; Fatigue; No Malaise, No Appetite, No Other HEENT: No Head Aches, No Ear Pain, No Dysphasia Pulmonary: Dyspnea, Cough, Pleuritic Chest Pain Cardiovascular: No: Chest Pain, Palpitations, Orthopnea, Paroxysmal Noc. Dyspnea, Edema Gastrointestinal: Constipation; No: Nausea, Vomiting, Abdominal Pain, Diarrhea, Melena, Hematochezia, Other Genitourinary: No Dysuria, No Frequency, No Incontinence, No Hematuria, No Retention, No Other Musculoskeletal: No: other, neck pain, shoulder pain, arm pain, back pain, hand pain, leg pain, foot pain Neurological: No: Weakness, Numbness, Incoordination, Change in speech, Confusion, Seizures, Other Focused Exam Time of Focused Exam: 04:45 Objective Exam Vital Signs Vital Signs Date Time Temp Pulse Resp B/P (MAP) Pulse Ox O2 Delivery O2 Flow Rate FiO2 06/16/23 10:28 66 35 95 25.00 06/16/23 09:55 NIV Bilevel 06/16/23 08:20 36.0 166/80 (108) 06/15/23 08:00 40 Capillary Refill : Less Than 3 Seconds General Appearance: No Apparent Distress, WD/WN, Anxious HEENT: PERRL/EOMI, Moist Mucous Membranes; No Scleral Icterus (L), No Scleral Icterus (R) Neck: Full Range of Motion, Normal Inspection, Non Tender, Supple Respiratory: Crackles, Decreased Breath Sounds, Wheezing Cardiovascular: Regular Rate, Rhythm, No Edema, No Gallop, No JVD, No Murmur, N ormal Peripheral Pulses; No Diastolic Murmur, No Systolic Murmur Gastrointestinal: Normal Bowel Sounds, No Organomegaly, Non Tender, Soft Rectal: Deferred Back: Normal Inspection Extremity: Normal Capillary Refill, Normal Inspection Neurologic/Psychiatric: Alert, Oriented x3, No Motor/Sensory Deficits, Normal Mood/Affect (anxious ) Skin: Normal Color, Warm/Dry Lymphatic: No Adenopathy Results/Procedures Lab Laboratory Tests 06/16/23 06:45 Patient resulted labs reviewed. Assessment/Plan Assessment and Plan Assess & Plan/Chief Complaint 06/16/2023: Assessment: * Acute on Chronic Hypoxic Respiratory Failure * COVID pneumonia * COPD * Diastolic HF * NSTEMI * CKD IV Plan: * Decadron * H/F NC @ 4L, BiPAP as needed, sleeping * DuoNeb treatments * Lasix 40mg * Aspirin, Statin, Metoprolol * Fluid support Diagnosis/Problems Diagnosis/Problems (1) Acute and chronic respiratory failure with hypoxia Status: Acute Assessment & Plan: O2 support, decadron, DuoNeb (2) COPD exacerbation Status: Resolved (3) Diastolic heart failure Status: Chronic Assessment & Plan: Lasix 40mg Qualifiers: Qualified Codes: I50.32 - Chronic diastolic (congestive) heart failure (4) NSTEMI (non-ST elevated myocardial infarction) Status: Acute Assessment & Plan: Aspirin, Statin, Metoprolol, Cardio consults (5) COVID Status: Acute Assessment & Plan: 06/08 dx, no longer in isolation, likely etiology of respiratory symptoms (6) CKD (chronic kidney disease), stage IV Status: Chronic (7) Debility Status: Chronic CT MCDUFFIE DO 06/16/231947: Subjective Subjective/Events-last exam Patient doing a little bit better Lungs remain clear Remains on BiPAP Patient very complicated Patient remains a full code Objective Exam General Appearance: No Apparent Distress, WD/WN, Chronically ill Respiratory: No Accessory Muscle Use, No Respiratory Distress, Decreased Breath Sounds, Other (On BiPAP) Cardiovascular: Regular Rate, Rhythm Assessment/Plan Assessment and Plan Assess & Plan/Chief Complaint O2 BiPAP Monitor creatinine Supervisory-Addendum Brief Verification & Attestation Participated in pt care: history, MDM, physical Personally performed: exam, history, MDM, supervision of care Care discussed with: Medical Student Procedures: n/a Results interpretation: Verified all documentation Verification and Attestation of Medical Student E/M Service A medical student performed and documented this service in my presence. I reviewed and verified all information documented by the medical student and made modifications to such information, when appropriate. I personally performed the physical exam and medical decision making. Ct Mcduffie Jun 16, 2023,19:47 BEV COLLIER Jun 16, 2023 11:29 CT MCDUFFIE DO Jun 16, 2023 19:48
[2023-06-16 15:58] VITALS: BP 143/67
[2023-06-16] MEDS: TAMSULOSIN 0.4 MG (FLOMAX) CAP PO SCH (16:32)
[2023-06-16] MEDS: MONTELUKAST 10 MG TABLET PO SCH (16:32)
[2023-06-16 19:02] VITALS: BP 121/52
[2023-06-16] MEDS: MELATONIN 3 MG TABLET PO PRN (20:27)
[2023-06-16 23:13] VITALS: BP 139/64
[2023-06-16] MEDS ORDERED: LIDOCAINE UROJET 2% GEL 10 ML PKG ONE (23:20)
[2023-06-16] MEDS ORDERED: LIDOCAINE UROJET 2% GEL 10 ML PKG TOP ONE (23:30)
[2023-06-17] MEDS: RT-ALBUTEROL HFA 8.5 GM INHALER IH SCH ×6 (02:15→22:11)
[2023-06-17 03:16] VITALS: BP 125/63
[2023-06-17 05:32] LABS: BASOPHILS % (AUTO) 0 % (0-10); EOSINOPHILS # (AUTO) 0.3 10^3/uL (0.0-0.3); EOSINOPHILS % (AUTO) 1 % (0-10); HEMATOCRIT 27 % (40-54); HEMOGLOBIN 8.5 g/dL (13.3-17.7); LYMPHOCYTES # (AUTO) 1.6 10^3/uL (1.0-4.0); LYMPHOCYTES % (AUTO) 8 % (12-44); MEAN CORPUSCULAR HEMOGLOBIN 27 pg (25-34); MEAN CORPUSCULAR HGB CONC 32 g/dL (32-36); MEAN CORPUSCULAR VOLUME 84 fL (80-99); MEAN PLATELET VOLUME 11.5 fL (9.0-12.2); MONOCYTES % (AUTO) 5 % (0-12); NEUTROPHILS % (AUTO) 84 % (42-75); PLATELET COUNT 324 10^3/uL (130-400); WHITE BLOOD COUNT 20.2 10^3/uL (4.3-11.0)
[2023-06-17 05:54] LABS: ALBUMIN 2.9 GM/DL (3.2-4.5); BILIRUBIN,TOTAL 0.2 MG/DL (0.1-1.0); CALCIUM 8.1 MG/DL (8.5-10.1); CREATININE SERUM 2.46 MG/DL (0.60-1.30); POTASSIUM 4.3 MMOL/L (3.6-5.0); TOTAL PROTEIN 6.4 GM/DL (6.4-8.2)
[2023-06-17] MEDS: FUROSEMIDE 40 MG TABLET PO SCH ×2 (06:20→16:33)
[2023-06-17] MEDS: inSUlin ASPART 1 UNIT/0.01 ML (PER UNIT) SC SCH ×7 (06:20→20:38)
[2023-06-17] MEDS: ENOXAPARIN 30 MG/0.3 ML SYRINGE SC SCH (06:20)
[2023-06-17 07:05] VITALS: BP 150/67
[2023-06-17] MEDS: TIOTROPIUM INH 4 GM (SPIRIVA Respimat) IH SCH (07:32)
[2023-06-17] MEDS: FLUTICASONE/VILANTEROL 100/25 MCG (7 DOSES) IH SCH (07:33)
[2023-06-17] MEDS: PANTOPRAZOLE 40 MG TABLET PO SCH (08:59)
[2023-06-17] MEDS: DOCUSATE SODIUM 100 MG CAPSULE PO SCH ×2 (08:59→20:38)
[2023-06-17] MEDS: FOLIC ACID 1 MG TAB PO SCH (09:01)
[2023-06-17] MEDS: amLODIPine 5 MG TABLET PO SCH (09:02)
[2023-06-17] MEDS: ASPIRIN enteric coated 81MG TABLET PO SCH (09:02)
[2023-06-17] MEDS: dexAMETHasone 6 MG TABLET PO SCH (09:02)
[2023-06-17] MEDS: inSUlin DETERMIR 1 UNIT/0.01 ML (CHARGE PER UNIT) SQ SCH ×2 (09:02→20:38)
[2023-06-17] MEDS: SENNOSIDES 8.6 MG TABLET PO SCH ×2 (09:02→20:38)
[2023-06-17] MEDS: CYANOCOBALAMIN 1,000 MCG TABLET PO SCH (09:02)
[2023-06-17] MEDS: CLOPIDOGREL 75 MG TABLET PO SCH (09:02)
[2023-06-17] MEDS: FLUTICASONE NASAL SPRAY (120 SPRAYS) NS SCH (09:03)
--- NOTE | 2023-06-17 09:03 | Cardiology Progress Note ---
Subjective Date Seen by Provider: Jun 17, 2023 Time Seen by Provider: 09:02 Subjective/Events-last exam Patient was seen at bedside, sitting comfortably, still having some shortness of breath but overall reporting improvement Review of Systems General: No Chills, No Night Sweats, No Fatigue, No Malaise, No Appetite, No Other HEENT: No Head Aches, No Visual Changes, No Eye Pain, No Ear Pain, No Dysphasia, No Sinus Congestion, No Post Nasal Drip, No Sore Throat, No Other Pulmonary: Dyspnea; No Cough, No Pleuritic Chest Pain, No Other Cardiovascular: No: Chest Pain, Palpitations, Orthopnea, Paroxysmal Noc. Dyspnea, Edema, Lt Headedness, Other Focused Exam Time of Focused Exam: 04:45 Objective-Cardiology Exam Last Set of Vital Signs Vital Signs 06/15/23 06/17/23 06/17/23 08:00 07:05 07:33 Temp 36.6 Pulse 65 Resp 16 B/P (MAP) 150/67 (94) Pulse Ox 95 O2 Delivery High Flow N/C O2 Flow Rate 4.00 FiO2 40 I&O Intake and Output 06/17/23 00:00 Intake Total 1490 ml Output Total 2225 ml Balance -735 ml Intake Oral 1490 ml Output Urine Total 2225 ml Bladder Scan Volume Amount 667 ml General: Alert, No Acute Distress HEENT: Atraumatic, PERRLA Neck: Supple, No Thyromegaly Lungs: Other (bibasilar rales) Heart: Regular Rate, Normal S1, Normal S2, No Murmurs Abdomen: Normal Bowel Sounds, Soft Extremities: No Edema Skin: No Rashes, No Breakdown, No Significant Lesion Neuro: Normal Speech Psych/Mental Status: Mood NL Results Lab Laboratory Tests 06/17/23 05:00 A/P-Cardiology Admission Diagnosis Acute respiratory failure Non-ST elevation myocardial infarction COVID-19 pneumonia Coronary artery disease Assessment/Plan Status post acute respiratory insufficiency, COVID-19 pneumonia Reporting improvement Still have bilateral rhonchi worse on the right. Increase in WBCs I will repeat chest x-ray PA and lateral. Non-ST elevation myocardial infarction, underlying chronic left bundle branch block Conservative management is recommended Coronary artery disease, cardiac catheterization was done in April 2021 with moderate disease in the mid right coronary artery with occlusion at the distal right PDA that is a small vessel not amendable to intervention, had multiple stents in the proximal and mid LAD and proximal and mid circumflex artery and they were patent. Mild to moderate in-stent restenosis. His troponin elevation is probably due to the occluded right PDA and small vessel disease. Conservative management is recommended. Anemia, worsening H&H, cannot tolerate aggressive anticoagulation Maintain on PPI and I will add aspirin 81 mg daily and monitor tolerance and response Hypertension, continue to monitor blood pressure Acute on chronic renal failure, history of chronic kidney disease stage IV. Continue to monitor renal function Chronic left bundle branch block Peripheral arterial disease, chronic pedal edema. Hyperlipidemia, monitor lipids Diabetes mellitus, followed and managed by primary care physician History of chronic back pain FADUMO TALAVERA MD Jun 17, 2023 09:03
--- NOTE | 2023-06-17 09:15 | Progress Note - Hospitalist ---
BEV COLLIER 06/17/23 0915: Subjective HPI/CC On Admission Date Seen by Provider: Jun 17, 2023 Time Seen by Provider: 08:45 CC: Acute on chronic hypoxic resp failure with COVID HPI: This is a 72yoWM known to me from multiple admits for CHF and BHAVANA/CKD and severe COPD who just DC home from [facility] on but became ill and short of breath requiring ER visit found to have AECOPD with COVID. Subjective/Events-last exam 06/17/2023: CC: Acute on Chronic Hypoxic Respiratory Failure HPI/update: Gilmar, 73M, notes that last night he slept better. He has previously had issues with sleeping. 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 Last night he said that he was able to get more sleep than his other days in the hospital. Additionally, he notes that he is eating much better today. Gilmar notes that he has had some sputum produced with his cough. He also notes that he is breathing better overall. When talking to Gilmar he didn't have his oxygen on his nose and was able to maintain long sentences without SOB. Gilmar notes that he likes to have the oxygen just in case something changes. He notes that at home he has an oxygen set up for when he goes home. Gilmar denies any pain, he denies any new symptoms. Gilmar overall appears to be improving. Gilmar noted that he denied PT, but he has had PT in the past so he knows what to do. Patient was advised to participate in PT today if offered. No other concerns. Review of Systems General: No Chills, No Night Sweats; Fatigue; No Malaise, No Appetite, No Other HEENT: No Head Aches, No Visual Changes, No Eye Pain, No Ear Pain, No Dysphasia, No Sinus Congestion, No Post Nasal Drip, No Sore Throat, No Other Pulmonary: Dyspnea, Cough; No Pleuritic Chest Pain, No Other Cardiovascular: No: Chest Pain, Palpitations, Orthopnea, Paroxysmal Noc. Dyspnea, Edema, Lt Headedness, Other Gastrointestinal: No: Nausea, Vomiting, Abdominal Pain, Diarrhea, Constipation, Melena, Hematochezia, Other Genitourinary: No Dysuria, No Frequency, No Incontinence, No Hematuria, No Retention, No Other Musculoskeletal: No: other, neck pain, shoulder pain, arm pain, back pain, hand pain, leg pain, foot pain Neurological: No: Weakness, Numbness, Incoordination, Change in speech, Confusion, Seizures, Other Focused Exam Time of Focused Exam: 04:45 Objective Exam Vital Signs Vital Signs Date Time Temp Pulse Resp B/P (MAP) Pulse Ox O2 Delivery O2 Flow Rate FiO2 06/17/23 07:33 95 High Flow N/C 4.00 06/17/23 07:05 36.6 65 16 150/67 (94) 06/15/23 08:00 40 Capillary Refill : Less Than 3 Seconds General Appearance: No Apparent Distress, WD/WN HEENT: PERRL/EOMI, Moist Mucous Membranes; No Pale Conjunctivae (L), No Pale Conjunctivae (R) Neck: Full Range of Motion, Normal Inspection, Non Tender, Supple Respiratory: No Accessory Muscle Use, No Respiratory Distress, Crackles, Expiration, Wheezing Cardiovascular: Regular Rate, Rhythm, No Edema, No Gallop, Normal Peripheral Pulses Gastrointestinal: Normal Bowel Sounds, Non Tender, Soft Rectal: Deferred Back: Normal Inspection Extremity: Normal Capillary Refill, Normal Inspection, Normal Range of Motion, Non Tender, No Calf Tenderness Neurologic/Psychiatric: Alert, Oriented x3, No Motor/Sensory Deficits, Normal Mood/Affect Skin: Normal Color, Warm/Dry Lymphatic: No Adenopathy Results/Procedures Lab Laboratory Tests 06/17/23 05:00 Patient resulted labs reviewed. Assessment/Plan Assessment and Plan Assess & Plan/Chief Complaint 06/16/2023: Assessment: * Acute on Chronic Hypoxic Respiratory Failure * COVID pneumonia * COPD * Diastolic HF * NSTEMI * CKD IV Plan: * Decadron * H/F NC @ 4L, BiPAP as needed, sleeping * DuoNeb treatments * Lasix 40mg * Aspirin, Statin, Metoprolol * Fluid support 06/17/2023: Assessment: * Acute on Chronic Hypoxic Respiratory Failure * PNA * CKD IV * COPD * Diastolic HF * NSTEMI Plan: * Decadron * H/F NC, BiPAP as neede * Fluticisone/Vilaterol, tiotropium, ambulation * Montior BUN and Cr * Lasix * Encourage fluids Diagnosis/Problems Diagnosis/Problems (1) Acute and chronic respiratory failure with hypoxia Status: Acute Assessment & Plan: O2 support, decadron, DuoNeb (2) COPD exacerbation Status: Resolved (3) CKD (chronic kidney disease), stage IV Status: Chronic (4) Diastolic heart failure Status: Chronic Assessment & Plan: Lasix 40mg Qualifiers: Qualified Codes: I50.32 - Chronic diastolic (congestive) heart failure (5) NSTEMI (non-ST elevated myocardial infarction) Status: Acute Assessment & Plan: Aspirin, Statin, Metoprolol, Cardio consults (6) COVID Status: Acute Assessment & Plan: 06/08 dx, no longer in isolation, likely etiology of respiratory symptoms (7) Debility Status: Chronic CT MCDUFFIE DO 06/17/23 1932: Subjective Subjective/Events-last exam No major issues O2 maintained No falls no pain Review of Systems General: Fatigue, Malaise Objective Exam General Appearance: No Apparent Distress, WD/WN, Chronically ill Respiratory: Decreased Breath Sounds, Expiration Cardiovascular: Regular Rate, Rhythm Neurologic/Psychiatric: Alert, Oriented x3 Assessment/Plan Assessment and Plan Assess & Plan/Chief Complaint Maintain aggressive care Poor prognosis Supervisory-Addendum Brief Verification & Attestation Participated in pt care: history, MDM, physical Personally performed: exam, history, MDM, supervision of care Care discussed with: Medical Student Procedures: n/a Results interpretation: Verified all documentation Verification and Attestation of Medical Student E/M Service A medical student performed and documented this service in my presence. I reviewed and verified all information documented by the medical student and made modifications to such information, when appropriate. I personally performed the physical exam and medical decision making. Ct Mcduffie Jun 17, 2023,19:31 BEV COLLIER Jun 17, 2023 09:15 CT MCDUFFIE DO Jun 17, 2023 19:32
--- NOTE | 2023-06-17 10:28 | Physical Therapy Progress Note ---
Therapy Progress Note Patient declined PT stating he is doing his exercises on his own and he's fine. He also reports he is unable to stand without assistance. PT attempted to educate patient on importance of participating with skilled PT to improve strength and mobility, however, patient continued to decline. Will attempt tomorrow. YUNG HASSAN PT Jun 17, 2023 10:28
--- NOTE | 2023-06-17 10:32 | Diagnostic Imaging Report ---
INDICATION: Dyspnea, recent Covid. TECHNIQUE: Two view chest 9:44 AM CORRELATION STUDY: 06/09/2023 FINDINGS: Heart size and mediastinum are enlarged and prominent, appears generally stable given differences in technique and positioning. Scattered bilateral airspace opacities are again demonstrated but overall appears slightly improved from prior. Unchanged elevated right diaphragm. Right apical pleural thickening and/or fluid. Visualized osseous structures are unremarkable. IMPRESSION: 1. Bilateral pulmonary infiltrate like opacities do persist but overall appears to be improved with improvement in aeration to the lung carr. Overall less edema as well. Dictated by: Dictated on workstation # [id number]
[2023-06-17 11:32] VITALS: BP 124/56
[2023-06-17 15:29] VITALS: BP 123/57
[2023-06-17] MEDS: MONTELUKAST 10 MG TABLET PO SCH (16:33)
[2023-06-17] MEDS: TAMSULOSIN 0.4 MG (FLOMAX) CAP PO SCH (16:34)
[2023-06-17 20:05] VITALS: BP 136/63
[2023-06-17 23:01] VITALS: BP 126/59
[2023-06-18] MEDS: RT-ALBUTEROL HFA 8.5 GM INHALER IH SCH ×6 (03:24→22:26)
[2023-06-18 03:39] VITALS: BP 162/70
[2023-06-18] MEDS: RT-ALBUTEROL HFA 8.5 GM INHALER IH PRN (04:15)
[2023-06-18 05:27] LABS: BASOPHILS % (AUTO) 0 % (0-10); EOSINOPHILS # (AUTO) 0.2 10^3/uL (0.0-0.3); EOSINOPHILS % (AUTO) 1 % (0-10); HEMATOCRIT 26 % (40-54); HEMOGLOBIN 8.3 g/dL (13.3-17.7); LYMPHOCYTES # (AUTO) 1.6 10^3/uL (1.0-4.0); LYMPHOCYTES % (AUTO) 7 % (12-44); MEAN CORPUSCULAR HEMOGLOBIN 27 pg (25-34); MEAN CORPUSCULAR HGB CONC 32 g/dL (32-36); MEAN CORPUSCULAR VOLUME 84 fL (80-99); MEAN PLATELET VOLUME 10.9 fL (9.0-12.2); MONOCYTES # (AUTO) 1.3 10^3/uL (0.0-1.0); MONOCYTES % (AUTO) 5 % (0-12); NEUTROPHILS # (AUTO) 20.5 10^3/uL (1.8-7.8); NEUTROPHILS % (AUTO) 86 % (42-75); PLATELET COUNT 329 10^3/uL (130-400)
[2023-06-18 05:48] LABS: BILIRUBIN,TOTAL 0.2 MG/DL (0.1-1.0); CREATININE SERUM 2.69 MG/DL (0.60-1.30); POTASSIUM 4.5 MMOL/L (3.6-5.0); TOTAL PROTEIN 6.3 GM/DL (6.4-8.2)
[2023-06-18] MEDS: FUROSEMIDE 40 MG TABLET PO SCH ×2 (06:26→17:29)
[2023-06-18] MEDS: ENOXAPARIN 30 MG/0.3 ML SYRINGE SC SCH (06:27)
[2023-06-18] MEDS: inSUlin ASPART 1 UNIT/0.01 ML (PER UNIT) SC SCH ×7 (06:27→20:23)
[2023-06-18] MEDS: FLUTICASONE/VILANTEROL 100/25 MCG (7 DOSES) IH SCH (07:19)
[2023-06-18] MEDS: TIOTROPIUM INH 4 GM (SPIRIVA Respimat) IH SCH (07:19)
[2023-06-18 07:56] VITALS: BP 148/67
[2023-06-18] MEDS: CYANOCOBALAMIN 1,000 MCG TABLET PO SCH (08:49)
[2023-06-18] MEDS: FOLIC ACID 1 MG TAB PO SCH (08:49)
[2023-06-18] MEDS: ASPIRIN enteric coated 81MG TABLET PO SCH (08:49)
[2023-06-18] MEDS: amLODIPine 5 MG TABLET PO SCH (08:49)
[2023-06-18] MEDS: DOCUSATE SODIUM 100 MG CAPSULE PO SCH ×2 (08:49→19:53)
[2023-06-18] MEDS: FLUTICASONE NASAL SPRAY (120 SPRAYS) NS SCH (08:50)
[2023-06-18] MEDS: SENNOSIDES 8.6 MG TABLET PO SCH ×2 (08:50→19:53)
[2023-06-18] MEDS: inSUlin DETERMIR 1 UNIT/0.01 ML (CHARGE PER UNIT) SQ SCH ×2 (08:50→20:36)
[2023-06-18] MEDS: PANTOPRAZOLE 40 MG TABLET PO SCH (08:50)
[2023-06-18] MEDS: CLOPIDOGREL 75 MG TABLET PO SCH (08:50)
[2023-06-18 11:16] VITALS: BP 131/60
--- NOTE | 2023-06-18 12:13 | Progress Note - Hospitalist ---
BEV COLLIER 06/18/23 1213: Subjective HPI/CC On Admission Date Seen by Provider: Jun 18, 2023 Time Seen by Provider: 11:00 CC: Acute on chronic hypoxic resp failure with COVID HPI: This is a 72yoWM known to me from multiple admits for CHF and BHAVANA/CKD and severe COPD who just DC home from [facility] on but became ill and short of breath requiring ER visit found to have AECOPD with COVID. Subjective/Events-last exam 06/18/2023: CC: Acute on Chronic Hypoxic Respiratory Failure HPI/update: Gilmar, 73M, notes that last night he slept okay. He previously noted that he was waking up in a panic, but says that this didn't happen last night. He says that his respiratory status appears the same- he denies it getting worse and only notes slight improvement. Gilmar was aware that his lungs will not fully recover due to the COPD, but was glad that he was functioning on her previous amount of oxygen. He is still using 4L via H/F NC during the day. He notes that he used the BiPAP last night and remembered his SPO2 being 95, but he still felt like it could do more. He says that despite this, he was able to sleep well. He notes that he has some productive coughs, yielding some rios mucus. He also notes that when he tried to stand, he needed 8L of oxygen. PT was encouraged. He notes that he wants to go home soon, and reiterated his code status being full code. Finished Decadron on 06/17 (5/5 doses) Elevated Glucose Review of Systems General: No Chills, No Night Sweats, No Fatigue; Appetite HEENT: No Head Aches, No Visual Changes, No Eye Pain Pulmonary: Dyspnea, Cough; No Pleuritic Chest Pain Cardiovascular: No: Chest Pain, Palpitations, Orthopnea, Paroxysmal Noc. Dysp shasta, Edema, Lt Headedness Gastrointestinal: No: Nausea, Vomiting, Abdominal Pain, Diarrhea, Constipation, Melena Genitourinary: No Dysuria, No Frequency, No Incontinence, No Hematuria, No Retention, No Other Musculoskeletal: shoulder pain; No: other, neck pain, arm pain, back pain, hand pain, leg pain, foot pain Neurological: No: Weakness, Numbness, Incoordination, Change in speech, Confusion, Seizures, Other Focused Exam Time of Focused Exam: 04:45 Objective Exam Vital Signs Vital Signs Date Time Temp Pulse Resp B/P (MAP) Pulse Ox O2 Delivery O2 Flow Rate FiO2 06/18/23 11:16 36.6 73 18 131/60 (83) 96 High Flow N/C 4.00 06/15/23 08:00 40 Capillary Refill : Less Than 3 Seconds General Appearance: No Apparent Distress, WD/WN HEENT: PERRL/EOMI, Moist Mucous Membranes; No Pale Conjunctivae (L), No Pale Conjunctivae (R), No Scleral Icterus (L), No Scleral Icterus (R) Neck: Full Range of Motion, Normal Inspection, Non Tender, Supple; No JVD Respiratory: No Accessory Muscle Use, No Respiratory Distress, Crackles, Expiration, Inspiration, Wheezing Cardiovascular: Regular Rate, Rhythm, No Edema, No Gallop, No JVD, No Murmur, Normal Peripheral Pulses Gastrointestinal: No Pulsatile Mass, Non Tender, Soft; No Distended Rectal: Deferred; No Black Stool, No Heme Positive Stool Back: Normal Inspection Extremity: Normal Capillary Refill, Normal Range of Motion, Non Tender, No Calf Tenderness Neurologic/Psychiatric: Alert, Oriented x3, No Motor/Sensory Deficits, Normal Mood/Affect Skin: Normal Color, Warm/Dry Lymphatic: No Adenopathy Results/Procedures Lab Laboratory Tests 06/18/23 05:08 Patient resulted labs reviewed. Assessment/Plan Assessment and Plan Assess & Plan/Chief Complaint 06/16/2023: Assessment: * Acute on Chronic Hypoxic Respiratory Failure * COVID pneumonia * COPD * Diastolic HF * NSTEMI * CKD IV Plan: * Decadron * H/F NC @ 4L, BiPAP as needed, sleeping * DuoNeb treatments * Lasix 40mg * Aspirin, Statin, Metoprolol * Fluid support 06/17/2023: Assessment: * Acute on Chronic Hypoxic Respiratory Failure * PNA * CKD IV * COPD * Diastolic HF * NSTEMI Plan: * Decadron * H/F NC, BiPAP as neede * Fluticisone/Vilaterol, tiotropium, ambulation * Montior BUN and Cr * Lasix * Encourage fluids 06/18/2023: Assessment: * Acute on Chronic Hypoxic Respiratory Failure * COPD * Hyperglycemia * CKD IV * Diastolic HF * PNA * NSTEMI Plan: * O2 support with NC or BiPAP * Fluticisone/Vilaterol, tiotropium, ambulation, encourage PT participation * Insulin Aspart, repeat testing * Montior BUN and Cr * Lasix * Encourage fluids * D/C soon, potentially tomorrow to home, depending on Diagnosis/Problems Diagnosis/Problems (1) Acute and chronic respiratory failure with hypoxia Status: Acute Assessment & Plan: O2 support, DuoNeb (2) COPD exacerbation Status: Resolved (3) CKD (chronic kidney disease), stage IV Status: Chronic (4) Diastolic heart failure Status: Chronic Assessment & Plan: Lasix 40mg Qualifiers: Qualified Codes: I50.32 - Chronic diastolic (congestive) heart failure (5) NSTEMI (non-ST elevated myocardial infarction) Status: Acute Assessment & Plan: Aspirin, Statin, Metoprolol, Cardio consults (6) COVID Status: Acute Assessment & Plan: 06/08 dx, no longer in isolation, likely etiology of respiratory symptoms (7) Debility Status: Chronic (8) Steroid-induced hyperglycemia Status: Acute Assessment & Plan: Insulin CT MCDUFFIE DO 06/18/232027: Subjective Subjective/Events-last exam Patient doing a lot better Elevated sugars will be managed and naturally decrease after steroids finished Objective Exam General Appearance: No Apparent Distress, WD/WN, Chronically ill Respiratory: Lungs Clear, Normal Breath Sounds Cardiovascular: Regular Rate, Rhythm Neurologic/Psychiatric: Alert, Oriented x3 Assessment/Plan Assessment and Plan Assess & Plan/Chief Complaint Discharge soon Monitor closely Supervisory-Addendum Brief Verification & Attestation Participated in pt care: history, MDM, physical Personally performed: exam, history, MDM, supervision of care Care discussed with: Medical Student Procedures: n/a Results interpretation: Verified all documentation Verification and Attestation of Medical Student E/M Service A medical student performed and documented this service in my presence. I reviewed and verified all information documented by the medical student and made modifications to such information, when appropriate. I personally performed the physical exam and medical decision making. Ct Mcduffie Jun 18, 2023,20:27 BEV COLLIER Jun 18, 2023 12:13 CT MCDUFFIE DO Jun 18, 2023 20:28
--- NOTE | 2023-06-18 12:56 | Physical Therapy Daily Note ---
PT Daily Note-Current Subjective Patient right sidelying in bed upon PT arrival, agreeable to treatment. Patient rates pain at 0/10 currently. Pain Section J - Health Conditions 1. Rarely or not at all 2. Occasionally 3. Frequently 4. Almost constantly 8. Unable to answer Pain Effect on Sleep: 1 Pain Interference with Therapy: 1 Pain Interference w/Day-to-Day: 1 Transfers SCALE: Activities may be completed with or without assistive devices. 3-Tqvnjflpbl-jsojtsw completes the activity by him/herself with no assistance from a helper. 5-Set-up or Clean-up Assistance-helper sets up or cleans up; patient completes activity. [place] assists only prior to or following the activity. 4-Supervision or Touching Assistance-helper provides verbal cues and/or touching/steadying and/or contact guard assistance as patient completes activity. Assistance may be provided throughout the activity or intermittently. 3-Partial/Moderate Assistance-helper does LESS THAN HALF the effort. Acton lifts, holds or supports trunk or limbs, but provides less than half the effort. 2-Substantial/Maximal Assistance-helper does MORE THAN HALF the effort. Acton lifts or holds trunk or limbs and provides more than half the effort. 1-Cvoaijrjc-neuzhg does ALL the effort. Patient does none of the effort to complete the activity. Or, the assistance of 2 or more helpers is required for the patient to complete the activity. If activity was not attempted, code reason: 7-Patient Refused. 9-Not Applicable-not attempted and the patient did not perform the activity before the current illness, exacerbation or injury. 10-Not Attempted due to Environmental Limitations-(lack of equipment, weather restraints, etc.). 88-Not Attempted due to Medical Conditions or Safety Concerns. Roll Left & Right (QC): 4 Sit to Lying (QC): 4 Lying to Sitting/Side of Bed(Q: 4 Sit to Stand (QC): 4 Weight Bearing Right Lower Extremity: Right Full Weight Bearing Left Lower Extremity: Left Full Weight Bearing Gait Training Does the Patient Walk?: Yes Distance: 150' x 2 Walk 10 feet (QC): 4 Walk 50 ft with 2 Turns(QC): 4 Walk 150 ft (QC): 4 Gait Persons Needed: 1 Gait Assistive Device: FWW Assessment Current Status: Fair Progress Patient tolerated treatment well. Performs all bed mobility and transfers with SBA. Patient ambulates 150 feet x 2 with 1 sitting rest break, with SBA. Patient in bed per his request post treatment with all needs met, nursing not ified, call light in reach. 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 Goals Custodial Goals PT Custodial Goals Time Frame: Jun 28, 2023 Roll Left & Right (QC): 6 Sit to Lying (QC): 6 Lying-Sitting on Side/Bed(QC): 6 Sit to Stand (QC): 6 Chair/Syt-xi-Blzqs Xfer(QC): 6 Toilet Transfer (QC): 6 Does the Patient Walk: Yes Walk 10 feet (QC): 6 Walk 50ft with 2 Turns (QC): 6 Walk 150 ft (QC): 4 PT Plan Treatment/Plan Treatment Plan: Continue Plan of Care Treatment Plan: Bed Mobility, Education, Functional Activity González, Functional Strength, Group Therapy, Gait, Safety, Therapeutic Exercise, Transfers Treatment Duration: Jun 28, 2023 Frequency: 6 times per week Estimated Hrs Per Day: .25 hour per day Patient and/or Family Agrees t: Yes Safety Risks/Education Patient Education: Gait Training, Transfer Techniques Teaching Recipient: Patient Teaching Methods: Demonstration, Discussion Response to Teaching: Verbalize Understanding, Return Demonstration Time Time In: 1120 Time Out: 1133 DATE: Jun 18, 2023 Total Billed Treatment Time: 13 Total Billed Treatment Visit, LISA JIANG PT Jun 18, 2023 12:56
[2023-06-18 16:06] VITALS: BP 122/71
[2023-06-18] MEDS: TAMSULOSIN 0.4 MG (FLOMAX) CAP PO SCH (17:29)
[2023-06-18] MEDS: MONTELUKAST 10 MG TABLET PO SCH (17:29)
[2023-06-18 19:42] VITALS: BP 131/66
[2023-06-18 23:26] VITALS: BP 136/54
[2023-06-19] MEDS: RT-ALBUTEROL HFA 8.5 GM INHALER IH SCH ×2 (03:36→07:21)
[2023-06-19 03:48] VITALS: BP 128/70
[2023-06-19 05:32] LABS: BASOPHILS % (AUTO) 0 % (0-10); EOSINOPHILS # (AUTO) 0.5 10^3/uL (0.0-0.3); EOSINOPHILS % (AUTO) 2 % (0-10); HEMATOCRIT 26 % (40-54); HEMOGLOBIN 8.3 g/dL (13.3-17.7); LYMPHOCYTES # (AUTO) 1.8 10^3/uL (1.0-4.0); LYMPHOCYTES % (AUTO) 9 % (12-44); MEAN CORPUSCULAR HEMOGLOBIN 26 pg (25-34); MEAN CORPUSCULAR HGB CONC 32 g/dL (32-36); MEAN CORPUSCULAR VOLUME 83 fL (80-99); MEAN PLATELET VOLUME 11.1 fL (9.0-12.2); MONOCYTES # (AUTO) 1.3 10^3/uL (0.0-1.0); MONOCYTES % (AUTO) 6 % (0-12); NEUTROPHILS # (AUTO) 16.7 10^3/uL (1.8-7.8); NEUTROPHILS % (AUTO) 81 % (42-75); PLATELET COUNT 343 10^3/uL (130-400); WHITE BLOOD COUNT 20.6 10^3/uL (4.3-11.0)
[2023-06-19] MEDS: ENOXAPARIN 30 MG/0.3 ML SYRINGE SC SCH (05:55)
[2023-06-19] MEDS: FUROSEMIDE 40 MG TABLET PO SCH (05:55)
[2023-06-19 06:01] LABS: ALBUMIN 2.9 GM/DL (3.2-4.5); BILIRUBIN,TOTAL 0.2 MG/DL (0.1-1.0); CALCIUM 7.9 MG/DL (8.5-10.1); CREATININE SERUM 2.67 MG/DL (0.60-1.30); POTASSIUM 4.4 MMOL/L (3.6-5.0); TOTAL PROTEIN 5.9 GM/DL (6.4-8.2)
[2023-06-19] MEDS: inSUlin ASPART 1 UNIT/0.01 ML (PER UNIT) SC SCH ×4 (06:23→11:59)
[2023-06-19] MEDS: TIOTROPIUM INH 4 GM (SPIRIVA Respimat) IH SCH (07:21)
[2023-06-19] MEDS: FLUTICASONE/VILANTEROL 100/25 MCG (7 DOSES) IH SCH (07:22)
[2023-06-19 08:15] VITALS: BP 110/56
[2023-06-19] MEDS: CLOPIDOGREL 75 MG TABLET PO SCH (08:43)
[2023-06-19] MEDS: CYANOCOBALAMIN 1,000 MCG TABLET PO SCH (08:43)
[2023-06-19] MEDS: ASPIRIN enteric coated 81MG TABLET PO SCH (08:43)
[2023-06-19] MEDS: FOLIC ACID 1 MG TAB PO SCH (08:43)
[2023-06-19] MEDS: DOCUSATE SODIUM 100 MG CAPSULE PO SCH (08:43)
[2023-06-19] MEDS: SENNOSIDES 8.6 MG TABLET PO SCH (08:43)
[2023-06-19] MEDS: FLUTICASONE NASAL SPRAY (120 SPRAYS) NS SCH (08:44)
[2023-06-19] MEDS: amLODIPine 5 MG TABLET PO SCH (08:44)
[2023-06-19] MEDS: PANTOPRAZOLE 40 MG TABLET PO SCH (08:44)
[2023-06-19] MEDS: inSUlin DETERMIR 1 UNIT/0.01 ML (CHARGE PER UNIT) SQ SCH (08:46)
[2023-06-19] MEDS ORDERED: TIOT4MIS2 IH (11:51)
--- NOTE | 2023-06-19 11:51 | D/C HH Face to Face Order ---
D/C HH Face to Face Orders Reconcile Patient Problems Problems Reviewed?: Yes Instructions for Patient HH Patient Instructions/FollowUp: PCP 1 week Physician to follow Patient: [facility] Discharge Diet for Home: No Restrictions Patient Problems: CHF COPD CKD Patient Data-Allergies,Ht & Wt Patient Allergies: Coded Allergies: liraglutide (Verified Allergy, Unknown, 09/06/21) Height (Feet): 5 Height (Inches): 11.00 Weight (Pounds): 225 Weight (Ounces): 0.0 Home Health Need/Face to Face Date of Face to Face: Jun 19, 2023 Clinical Findings: Generalized weakness and fatigue, Instability, Muscle weakness, Shortness of breath I have seen Pt [id number]-[id number]: Yes Discharged To: Home Diagnosis/Conditions: Debility Patient is Homebound due to: Michael fall risk due to instabilty, Muscle weakness, Shortness of breath/distress Homebound Status Due to the above stated illness, injury or surgical procedure (medical condition or diagnosis) and associated clinical findings, the patient is homebound because of his/her inability to leave home except with aid of a supportive device and/or person AND leaving the home requires a considerable and taxing effort or is medically contraindicated. Pt req the following assistanc: Walker Home Health Nursing Orders Home Health Services Order: Nursing Services, Yard Coupler-Evaluate & Treat, Physical Therapy-Evaluate & Treat Certify Stmt I certify that this patient is under my care and that I, a nurse practitioner or a physician; a bioinformatics assistant working with me, had a face to face encounter that - meets the physician face to face encounter requirements with this patient as dated. MARY MCDUFFIE DO Jun 19, 2023 11:51
[2023-06-19 11:52] VITALS: BP 133/64
--- NOTE | 2023-06-19 11:52 | Discharge Summary ---
Discharge Summary Hospital Course Was the Problem List Reviewed?: Yes Problems/Dx: (1) Acute and chronic respiratory failure with hypoxia Status: Acute (2) COPD exacerbation Status: Resolved (3) CKD (chronic kidney disease), stage IV Status: Chronic (4) Diastolic heart failure Status: Chronic Qualifiers: Qualified Codes: I50.32 - Chronic diastolic (congestive) heart failure (5) NSTEMI (non-ST elevated myocardial infarction) Status: Acute (6) COVID Status: Acute (7) Debility Status: Chronic (8) Steroid-induced hyperglycemia Status: Acute Hospital Course Date of Admission: Jun 08, 2023 at 05:08 Admission Diagnosis : Family Physician/Provider: Jasmin Bland Shot Core Drill Operator Helper Date of Discharge: 06/19/23 Discharge Diagnosis: [ ] Hospital Course: 06/19/2023: CC: Acute on Chronic Respiratory Failure Course: Gilmar is a 73 year old male that presented to the ED on 06/08 with SOB, leg swelling, and hypoxia with SpO2 in the 70s. Gilmar has a past medical history of HLD, HTN, CHF, IDDM, CAD with history of intervention, PAD, and a history of smoking. In the ED, a CXR was performed and revealed that he had elevated diaphragms, prominent pulmonary arteries, congestion, and R-mid lung infiltrate. He also showed bilateral infiltrates. He was placed on BiPAP. This lead to a diagnosis of pneumonia causing acute on chronic hypoxic respiratory failure. He was also tested for COVID-19 which came back positive and he was placed in isolation. For respiratory concerns, Gilmar was placed on decadron, LABA/ICS/LAMA, and albuterol. Additionally, he was placed on Lasix for his CHF. His kidney function has been monitored via CBC with his BUN and Cr being elevated consistent with CKD. Additionally, Gilmar had chest pain and elevated troponin on 06/09 consistent with an NSTEMI, which was managed medically per cardiology consult. EKG revealed LBBB, which was present prior to admission. Gilmar was in the ICU, but was later transferred to the MED/SURG unit due to improvement. RT was involved in ensuring proper respiratory function. Gilmar consistently used 4L via H/F NC O2 and uses the BiPAP at night. Gilmar has had a lot of anxiety about not being able to breathe, so the BiPAP brought him comfort when sleeping. He has continued to be able to properly oxygenate when sleeping with the 4L via H/F NC. It was found that his PNA was likely caused by pneumonia and did not require any Abx treatment due to positive covid testing and presentation on CXR. Gilmar continued to be seen by cardiology to manage his NSTEMI and CHF. For respiratory issues associated with COVID, Gilmar was treated with a full course of decadron which showed a lot of improvement in symptoms. His lungs have continued to improve in terms of auscultation. Gilmar also notes that he can breath much better, with his saturation remaining in the mid to high 90s. On 06/18, Gilmar showed hyperglycemia, which has been treated with insulin. This is determined to be associated with his steroid usage for COVID. Glucose levels continue to improve. Gilmar has been very involved in his healthcare, with him deciding to revoke his DNR on 06/16 stating that he wants to be full code. He has also made it clear that he does not want to go to a retirement facility. He will discharge to home where he has support from caregivers and family. The prognosis for Franko issues is poor. In the past few months there have been numerous hospitalizations related to his respiratory concerns. At time of discharge, Gilmar has returned to his baseline. He was be en seen by PT and is able to ambulate with SBA. Gilmar will require consistent care. He will be discharged back on his home meds, with his nurse discussing proper usage of medication. Gilmar is motivated to remain home. BEV COLLIER Labs and Pending Lab Test: Laboratory Tests 06/18/23 16:05: Glucometer 279H 06/18/23 20:27: Glucometer 219H 06/19/23 04:55: White Blood Count 20.6H, Red Blood Count 3.16L, Hemoglobin 8.3L, Hematocrit 26L, Mean Corpuscular Volume 83, Mean Corpuscular Hemoglobin 26, Mean Corpuscular Hemoglobin Concent 32, Red Cell Distribution Width 16.4H, Platelet Count 343, Mean Platelet Volume 11.1, Immature Granulocyte % (Auto) 1, Neutrophils (%) (Auto) 81H, Lymphocytes (%) (Auto) 9L, Monocytes (%) (Auto) 6, Eosinophils (%) (Auto) 2, Basophils (%) (Auto) 0, Neutrophils # (Auto) 16.7H, Lymphocytes # (A uto) 1.8, Monocytes # (Auto) 1.3H, Eosinophils # (Auto) 0.5H, Basophils # (Auto) 0.0, Immature Granulocyte # (Auto) 0.3H, Sodium Level 140, Potassium Level 4.4, Chloride Level 100, Carbon Dioxide Level 28, Anion Gap 12, Blood Urea Nitrogen 95H, Creatinine 2.67H, Estimat Glomerular Filtration Rate 25, BUN/Creatinine Ratio 36, Glucose Level 286H, Calcium Level 7.9L, Corrected Calcium 8.8, Total Bilirubin 0.2, Aspartate Amino Transf (AST/SGOT) 18, Alanine Aminotransferase (ALT/SGPT) 16, Alkaline Phosphatase 58, Total Protein 5.9L, Albumin 2.9L 06/19/23 11:41: Glucometer 199H Microbiology 06/08/23 Blood Culture - Final, Complete Home Meds Active Spiriva Respimat 2.5MCG/ACTUATION (Tiotropium [place]) 2.5 Mcg/Actuation Mist.inhal 0 Inh IH DAILY@0800 1 puff daily Furosemide 40 Mg Tablet 40 Mg PO BID Amlodipine Besylate 5 Mg Tablet 5 Mg PO DAILY Folic Acid 0.4 Mg Tablet 0.4 Mg PO DAILY Vitamin B-12 (Cyanocobalamin (Vitamin B-12)) 1,000 Mcg Tablet 1,000 Mcg PO DAILY Breztri Aerosphere Inhaler (Budesonide/Glycopyr/Formoterol) 160 Mcg-9 Mcg-4.8 Mcg/Actuation Hfa.aer.ad 2 Puff IH BID Nesina (Alogliptin Benzoate) 6.25 Mg Tablet 6.25 Mg PO DAILY Flonase Allergy Relief (Fluticasone Propionate) 50 Mcg/Actuation [place].susp 1-2 [place] NSEACH DAILY Nitroglycerin 0.4 Mg Tab.subl 0.4 Mg SL UD PRN Montelukast Sodium 10 Mg Tablet 10 Mg PO 1700 Ventolin Hfa (Albuterol Sulfate) 90 Mcg Hfa.aer.ad 2 Puff INH Q4H PRN Flomax (Tamsulosin HCl) 0.4 Mg Cap 0.4 Mg PO 1700 Lipitor (Atorvastatin Calcium) 40 Mg Tablet 40 Mg PO 1700 Aspirin EC (Aspirin) 81 Mg Tablet.dr 81 Mg PO DAILY Clopidogrel (Clopidogrel Bisulfate) 75 Mg Tablet 75 Mg PO DAILY Pantoprazole Sodium 40 Mg Tablet.dr 40 Mg PO DAILY Reported Levemir Flexpen (Insulin Detemir) 100 Unit/Ml (3 Ml) Insuln.pen 20 Unit SQ BID HOLD WHEN BLOOD SUGAR IS UNDER 100 Metoprolol Succinate 100 Mg Tab.er.24h 50 Mg PO DAILY TAKES OF A 100MG TAB Assessment/Pt Instructions PCP 1 week Discharge Planning: <30 minutes discharge planning Discharge Instructions Discharge Diet: No Restrictions Activity as Tolerated: Yes Discharge Physical Examination Vital Signs Vital Signs Date Time Temp Pulse Resp B/P (MAP) Pulse Ox O2 Delivery O2 Flow Rate FiO2 06/19/23 08:15 36.3 76 23 110/56 (74) 93 NIV Bilevel 3.50 06/18/23 20:00 40 General Appearance: No Apparent Distress, WD/WN, Chronically ill Allergies: Coded Allergies: liraglutide (Verified Allergy, Unknown, 09/06/21) Discharge Summary Date of Admission Jun 08, 2023 at 05:08 Date of Discharge Discharge Date: Jun 19, 2023 Admission Diagnosis COVID-19 Discharge Diagnosis Discharge soon Monitor closely (1) Acute and chronic respiratory failure with hypoxia Status: Acute Assessment & Plan: O2 support, DuoNeb (2) COPD exacerbation Status: Resolved (3) CKD (chronic kidney disease), stage IV Status: Chronic (4) Diastolic heart failure Status: Chronic Assessment & Plan: Lasix 40mg Qualifiers: Qualified Codes: I50.32 - Chronic diastolic (congestive) heart failure (5) NSTEMI (non-ST elevated myocardial infarction) Status: Acute Assessment & Plan: Aspirin, Statin, Metoprolol, Cardio consults (6) COVID Status: Acute Assessment & Plan: 06/08 dx, no longer in isolation, likely etiology of respiratory symptoms (7) Debility Status: Chronic (8) Steroid-induced hyperglycemia Status: Acute Assessment & Plan: Insulin MARY MCDUFFIE DO Jun 19, 2023 11:52
--- NOTE | 2023-06-19 12:14 | Progress Note ---
BEV COLLIER 06/19/23 1214: Progress Note 06/19/2023: CC: Acute on Chronic Respiratory Failure Course: Gilmar is a 73 year old male that presented to the ED on 06/08 with SOB, leg swelling, and hypoxia with SpO2 in the 70s. Gilmar has a past medical history of HLD, HTN, CHF, IDDM, CAD with history of intervention, PAD, and a history of smoking. In the ED, a CXR was performed and revealed that he had elevated diaphragms, prominent pulmonary arteries, congestion, and R-mid lung infiltrate. He also showed bilateral infiltrates. He was placed on BiPAP. This lead to a diagnosis of pneumonia causing acute on chronic hypoxic respiratory failure. He was also tested for COVID-19 which came back positive and he was placed in isolation. For respiratory concerns, Gilmar was placed on decadron, LABA/ICS/LAMA, and albuterol. Additionally, he was placed on Lasix for his CHF. His kidney function has been monitored via CBC with his BUN and Cr being elevated consistent with CKD. Additionally, Gilmar had chest pain and elevated troponin on 06/09 consistent with an NSTEMI, which was managed medically per cardiology consult. EKG revealed LBBB, which was present prior to admission. Gilmar was in the ICU, but was later transferred to the MED/SURG unit due to improvement. RT was involved in ensuring proper respiratory function. Gilmar consistently used 4L via H/F NC O2 and uses the BiPAP at night. Gilmar has had a lot of anxiety about not being able to breathe, so the BiPAP brought him comfort when sleeping. He has continued to be able to properly oxygenate when sleeping with the 4L via H/F NC. It was found that his PNA was likely caused by pneumonia and did not require any Abx treatment due to positive covid testing and presentation on CXR. Gilmar continued to be seen by cardiology to manage his NSTEMI and CHF. For respiratory issues associated with COVID, Gilmar was t reated with a full course of decadron which showed a lot of improvement in symptoms. His lungs have continued to improve in terms of auscultation. Gilmar also notes that he can breath much better, with his saturation remaining in the mid to high 90s. On 06/18, Gilmar showed hyperglycemia, which has been treated with insulin. This is determined to be associated with his steroid usage for COVID. Glucose levels continue to improve. Gilmar has been very involved in his healthcare, with him deciding to revoke his DNR on 06/16 stating that he wants to be full code. He has also made it clear that he does not want to go to a detention facility. He will discharge to home where he has support from caregivers and family. The prognosis for Franko issues is poor. In the past few months there have been numerous hospitalizations related to his respiratory concerns. At time of discharge, Gilmar has returned to his baseline. He was been seen by PT and is able to ambulate with SBA. Gilmar will require consistent care. He will be discharged back on his home meds, with his nurse discussing proper usage of medication. Gilmar is motivated to remain home. CT MCDUFFIE DO 06/19/232053: Supervisory-Addendum Brief Verification & Attestation Participated in pt care: history, MDM, physical Personally performed: exam, history, MDM, supervision of care Care discussed with: Medical Student Procedures: n/a Results interpretation: Verified all documentation Verification and Attestation of Medical Student E/M Service A medical student performed and documented this service in my presence. I reviewed and verified all information documented by the medical student and made modifications to such information, when appropriate. I personally performed the physical exam and medical decision making. Ct Mcduffie, Jun 19, 2023,20:54 BEV COLLIER Jun 19, 2023 12:14 CT MCDUFFIE DO Jun 19, 2023 20:54
== END 2023-06-19 13:50 | disposition home health service (06) | DRG 871 ==
LOC: EDUNIT# 03:47 → ER 03:49 → ICU 05:08 → 4TH 06-10 14:40
PROVIDERS: ADMIT Internal Medicine; ATTEND Internal Medicine
PROC: 5A09357 Assistance with Respiratory Ventilation, Less than 24 Consecutive Hours, Continuous Positive Airway Pressure (ICD-10-PCS; principal; 2023-06-08)
PROC: 8E0ZXY6 Isolation (ICD-10-PCS; 2023-06-08)
PROC: 5A0945A Assistance with Respiratory Ventilation, 24-96 Consecutive Hours, High Flow/Velocity Cannula (ICD-10-PCS; 2023-06-10)
DX: A41.89 Other specified sepsis (principal); I21.4 Non-ST elevation (NSTEMI) myocardial infarction; I50.33 Acute on chronic diastolic (congestive) heart failure; J12.82 Pneumonia due to coronavirus disease 2019; U07.1 COVID-19; J96.22 Acute and chronic respiratory failure with hypercapnia; J96.21 Acute and chronic respiratory failure with hypoxia; N17.9 Acute kidney failure, unspecified; J44.1 Chronic obstructive pulmonary disease with (acute) exacerbation; J44.0 Chronic obstructive pulmonary disease with (acute) lower respiratory infection; I13.0 Hypertensive heart and chronic kidney disease with heart failure and stage 1 through stage 4 chronic kidney disease, or unspecified chronic kidney disease; N18.4 Chronic kidney disease, stage 4 (severe); F17.210 Nicotine dependence, cigarettes, uncomplicated; Z99.81 Dependence on supplemental oxygen; E11.22 Type 2 diabetes mellitus with diabetic chronic kidney disease; E11.65 Type 2 diabetes mellitus with hyperglycemia; Z79.4 Long term (current) use of insulin; E11.40 Type 2 diabetes mellitus with diabetic neuropathy, unspecified; T38.0X5A Adverse effect of glucocorticoids and synthetic analogues, initial encounter; T82.855D Stenosis of coronary artery stent, subsequent encounter; I25.10 Atherosclerotic heart disease of native coronary artery without angina pectoris; Z95.5 Presence of coronary angioplasty implant and graft; D64.9 Anemia, unspecified; E78.00 Pure hypercholesterolemia, unspecified; Z79.82 Long term (current) use of aspirin
CPT/HCPCS: 36415; 36600; 71045; 71046; 80053; 82550; 82553; 82805; 82947; 83605; 83735; 83874; 83880; 84100; 84484; 85007; 85025; 85027; 85379; 85610; 85652; 85730; 86141; 86850; 86900; 86901; 87040; 87636; 93005; 93041; 94640; 94660; 94760; 96365; 96372; 96375

== ENCOUNTER 2023-07-28 21:26 | Inpatient (IN) | payer OTHER ==
[~2023-07-28] VITALS: Ht 177.8 cm; Wt 85.1 kg
[~2023-07-28 21:26] MED LIST changes: +BTH10T PO; -GLIP5TAB13 PO; +GLIP5TAB23 PO; +INSU100I88 SQ; +SCOP1PAT10 TD
[2023-07-28] MEDS ORDERED: CEFEPIME INJECTION 1,000 MG in NS (IVPB) 50 ML 50 ML IV ONE (21:45)
[2023-07-28 21:46] LABS: BASOPHILS # (AUTO) 0.1 10^3/uL (0.0-0.1); BASOPHILS % (AUTO) 0 % (0-10); EOSINOPHILS # (AUTO) 0.4 10^3/uL (0.0-0.3); EOSINOPHILS % (AUTO) 3 % (0-10); HEMATOCRIT 27 % (40-54); LYMPHOCYTES # (AUTO) 1.3 10^3/uL (1.0-4.0); LYMPHOCYTES % (AUTO) 9 % (12-44); MEAN CORPUSCULAR HEMOGLOBIN 26 pg (25-34); MEAN CORPUSCULAR HGB CONC 30 g/dL (32-36); MEAN CORPUSCULAR VOLUME 85 fL (80-99); MEAN PLATELET VOLUME 10.3 fL (9.0-12.2); MONOCYTES % (AUTO) 7 % (0-12); NEUTROPHILS # (AUTO) 11.6 10^3/uL (1.8-7.8); NEUTROPHILS % (AUTO) 80 % (42-75); PLATELET COUNT 318 10^3/uL (130-400); WHITE BLOOD COUNT 14.5 10^3/uL (4.3-11.0)
--- NOTE | 2023-07-28 21:51 | ED General ---
General Chief Complaint: Altered Mental Status Stated Complaint: HALLUCINATIONS Source of Information: Patient (VERY DIFFICULT HISTORIAN), Old Records History of Present Illness Date Seen by Provider: Jul 28, 2023 Time Seen by Provider: 21:26 Initial Comments PT ARRIVES VIA EMS FROM HOME--LIVES WITH PT STATES 'I'M SEEIN' PEOPLE -I DON'T KNOW IF THEY'RE OR ALIVE" PT THEN PROCEEDS TO TALK NON-STOP, LAUGH, ETC. 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 BEEN IN AND OUT OF NURSING HOMES PCP: MARU Allergies and Home Medications Allergies Coded Allergies: liraglutide (Verified Allergy, Unknown, 07/22/23) Patient Home Medication List Home Medication List Reviewed: Yes Albuterol Sulfate (Ventolin Hfa) 90 Mcg Hfa.aer.ad, 2 PUFF INH Q4H PRN for SHORT NESS OF BREATH Prescribed by: TRICIA BHATTI on 05/16/23 1325 Alogliptin Benzoate (Nesina) 6.25 Mg Tablet, 6.25 MG PO DAILY Prescribed by: TRICIA BHATTI on 05/16/23 1325 Amlodipine Besylate (Amlodipine Besylate) 5 Mg Tablet, 5 MG PO DAILY Prescribed by: TRICIA BHATTI on 05/16/23 1325 Aspirin (Aspirin EC) 81 Mg Tablet.dr, 81 MG PO DAILY Prescribed by: TRICIA BHATTI on 05/16/23 132 Atorvastatin Calcium (Lipitor) 40 Mg Tablet, 40 MG PO 1700 Prescribed by: TRICIA BHATTI on 05/16/23 1325 Bethanechol Chloride (Urecholine) 10 Mg Tablet, 10 MG PO ACHS Prescribed by: Julia Barraza on 07/25/23 1648 Budesonide/Glycopyr/Formoterol (Breztri Aerosphere Inhaler) 160 Mcg-9 Mcg-4.8 Mcg/Actuation Hfa.aer.ad, 2 PUFF IH BID Prescribed by: TRICIA BHATTI on 05/16/23 132 Clopidogrel Bisulfate (Clopidogrel) 75 Mg Tablet, 75 MG PO DAILY Prescribed by: TRICIA BHATTI on 05/16/23 132 Cyanocobalamin (Vitamin B-12) (Vitamin B-12) 1,000 Mcg Tablet, 1,000 MCG PO DAILY Prescribed by: TRICIA BHATTI on 05/16/23 132 Fluticasone Propionate (Flonase Allergy Relief) 50 Mcg/Actuation [place].susp, 1-2 SPRAY NSEACH DAILY Prescribed by: TRICIA BHATTI on 05/16/23 132 Folic Acid (Folic Acid) 0.4 Mg Tablet, 0.4 MG PO DAILY Prescribed by: TRICIA BHATTI on 05/16/231324 Furosemide (Furosemide) 40 Mg Tablet, 40 MG PO BID Prescribed by: TRICIA BHATTI on 05/16/23 132 Insulin Detemir (Levemir Flexpen) 100 Unit/Ml (3 Ml) Insuln.pen, 24 UNIT SQ DAILY, (Reported) Entered as Reported by: JIM MCDONALD on 06/10/23 135 Insulin Detemir (Levemir Flexpen) 100 Unit/Ml (3 Ml) Insuln.pen, 20 UNIT SQ HS, (Reported) Entered as Reported by: JIM MCDONALD on 07/23/23 1551 Metoprolol Succinate (Metoprolol Succinate) 100 Mg Tab.er.24h, 50 MG PO DAILY, (Reported) Entered as Reported by: JIM MCDONALD on 06/10/23 1359 Montelukast Sodium (Montelukast Sodium) 10 Mg Tablet, 10 MG PO 1700 Prescribed by: TRICIA BHATTI on 05/16/23 132 Nitroglycerin (Nitroglycerin) 0.4 Mg Tab.subl, 0.4 MG SL UD PRN for CHEST PAIN Prescribed by: TRICIA BHATTI on 05/16/23 132 Pantoprazole Sodium (Pantoprazole Sodium) 40 Mg Tablet.dr, 40 MG PO DAILY Prescribed by: TRICIA BHATTI on 05/16/23 132 Scopolamine (Transderm-Scop) 1 Mg/3 Day Patch.td72, 1 EACH TD Q72H Prescribed by: Julia Barraza on 07/25/231647 Tamsulosin HCl (Flomax) 0.4 Mg Cap, 0.4 MG PO BID Prescribed by: Julia Barraza on 07/25/231647 Review of Systems Review of Systems Constitutional: other (PT UNABLE TO GIVE ANY INFORMATION) Psychiatric/Neurological: See HPI Past Popsjvh-Hnoxqk-Uclyyz Hx Immunizations Up To Date Tetanus Booster (TDap): Unknown PED Vaccines UTD: Yes First/Initial COVID19 Vaccinat: NOVEMBER 2020, SHRUTHI AND SHRUTHI Second COVID19 Vaccination Nomi: NOVEMBER 2020, SHRUTHI AND SHRUTHI Third COVID19 Vaccination Date: NOVEMBER 2020, DONALD Seasonal Allergies Seasonal Allergies: No Past Medical History Surgery/Hospitalization HX: Pulmonary edema , CHF, COPD, DM2, HTN Parotid gland biopsy, CAD, CBP, HLD, MAC DEG. Surgeries: Yes (CHEST TUBE INSERTION;PAROTID GLAND BX; MULT STENTS/INTERVENTIONS) Cardiac, Coronary Stent, Vascular Surgery Respiratory: Yes (Uses oxygen at 4 L/min nasal cannula at home) Pneumonia, COPD Currently Using CPAP: No Currently Using BIPAP: No Cardiac: Yes (PAD AND CAD WITH MULTIPLE INTERVENTIONS/STENTS; CHF; LBBB) Chronic Edema/Swelling, Coronary Artery Disease, Heart Attack, High Cholesterol, Hypertension, Peripheral Vascular Neurological: Yes Neuropathy Reproductive Disorders: No Genitourinary: Yes (CKD) Renal Failure Gastrointestinal: Yes Hepatitis, Polyps Musculoskeletal: Yes Degenerate Disk Disease, Arthritis, Chronic Back Pain Endocrine: Yes Diabetes, Insulin dep HEENT: Yes (hemmoraging in back of both eyes-pt see specialist for it) Cataract, Macular Degeneration Cancer: No Psychosocial: No Integumentary: No Blood Disorders: Yes (CHRONIC ANEMIA) Family Medical History Patient reports no known family medical history. No Pertinent Family Hx SOCIAL HISTORY: -SMOKES 1 PPD -ETOH--OCCASIONAL USE -DRUGS--DENIES USE MULTIPLE VISITS AND ADMITS --MANY FOR RESPIRATORY ISSUES PT HAS BEEN IN AND OUT OF NURSING HOMES, HAS BEEN BACK AT HOME OF ADMIT ON 07/28/23. PAST SURGICAL HISTORY: -MULTIPLE CARDIAC CATHS AND PERIPHERAL ANGIOGRAMS WITH CAD AND PAD WITH MULTIPLE STENTS AND INTERVENTIONS -PAROTID GLAND BIOPSY -CHEST TUBE -- Echocardiogram of 02-26-[address] Pizarro showed LVEF 55-60% -- Cardiac cath of by Dr. Pizarro showed: Moderate disease in the mid right coronary artery with occlusion of the distal right PDA, small artery not amendable to intervention. Patent multiple stents in the proximal and mid LAD and proximal mid circumflex artery with mild to moderate in-stent restenosis and mild to moderate coronary artery disease in the left system nonobstructive disease. Normal left ventricular end-diastolic pressure - medical management advised at that time - continue antiplatelet therapy. Physical Exam Vital Signs Vital Signs - First Documented 07/28/23 21:27 Temp 37.1 Pulse 77 Resp 20 B/P (MAP) 138/61 (86) Pulse Ox 93 Capillary Refill : Height, Weight, BMI Height: 5'11.00" Weight: 225lbs. 0.0oz. 102.805891tu; 28.69 BMI Method:Stated General Appearance: No Apparent Distress, WD/WN, Other (PT ACTIVELY HALLUCINATING ON ARRIVAL--SEEING CARS IN ROOM, TALKING ABOUT STAFF MEMBERS HAIR--SAYING IT'S BLOND WHEN IT IS ACTUALLY RED, SAYING A DIFFERENT STAFF MEMBER'S HAIR IS JODIE HAIR WHITE, WHEN IT IS VERY DARK BROWN, ETC. PT IS VERY JOVIAL. PT REEKS OF CIGARETTES AND THERE ARE EXTENSIVE CIGARETTE BURN HOLES IN CLOTHING AND HIS HOUSE SLIPPERS. ) HEENT: PERRL/EOMI Neck: Normal Inspection Respiratory: No Accessory Muscle Use, No Respiratory Distress, Rales (BILATERAL); No Wheezing Cardiovascular: Regular Rate, Rhythm, No Edema, No JVD, No Murmur Gastrointestinal: Non Tender, Soft Back: No CVA Tenderness Extremity: Normal Capillary Refill, No Pedal Edema Neurologic/Psychiatric: Alert, No Motor/Sensory Deficits, Other ( ABOVE) Skin: Normal Color, Warm/Dry Focused Exam Sepsis Stage: Sepsis Possible Source: Other (URINARY AND RESPIRATORY) Lactate Level 07/28/23 21:37: Lactic Acid Level 0.84 Time of Focused Exam: 22:20 Respiratory: No Accessory Muscle Use, No Respiratory Distress, Rales Cardiovascular: Regular Rate, Rhythm, No Edema Capillary Refill: Less Than 3 Seconds Skin: normal color, warm/dry Lactic Acid Level Laboratory Tests Test 07/28/23 21:37 Lactic Acid Level 0.84 MMOL/L (0.50-2.00) Within 3hrs of presentation: Admin fluids, Admin ABX, Blood cultures prior to ABX's, Focus exam, Lactate level Progress/Results/Core Measures Suspected Sepsis SIRS Temperature: Pulse: Respiratory Rate: Laboratory Tests 07/28/23 21:37: White Blood Count 14.5H Blood Pressure / Mean: 07/28/23 21:37: Lactic Acid Level 0.84 Laboratory Tests 07/28/23 21:37: Creatinine 2.46H, INR Comment 1.0, Platelet Count 318, Total Bilirubin 0.2 Results/Orders Lab Results Laboratory Tests Test 07/28/23 21:37 07/28/23 21:42 Range/Units White Blood Count 14.5 H 4.3-11.0 10^3/uL Red Blood Count 3.14 L 4.30-5.52 10^6/uL Hemoglobin 8.0 L 13.3-17.7 g/dL Hematocrit 27 L 40-54 % Mean Corpuscular Volume 85 80-99 fL Mean Corpuscular Hemoglobin 26 25-34 pg Mean Corpuscular Hemoglobin Concent 30 L 32-36 g/dL Red Cell Distribution Width 17.5 H 10.0-14.5 % Platelet Count 318 130-400 10^3/uL Mean Platelet Volume 10.3 9.0-12.2 fL Immature Granulocyte % (Auto) 0 % Neutrophils (%) (Auto) 80 H 42-75 % Lymphocytes (%) (Auto) 9 L 12-44 % Monocytes (%) (Auto) 7 0-12 % Eosinophils (%) (Auto) 3 0-10 % Basophils (%) (Auto) 0 0-10 % Neutrophils # (Auto) 11.6 H 1.8-7.8 10^3/uL Lymphocytes # (Auto) 1.3 1.0-4.0 10^3/uL Monocytes # (Auto) 1.0 0.0-1.0 10^3/uL Eosinophils # (Auto) 0.4 H 0.0-0.3 10^3/uL Basophils # (Auto) 0.1 0.0-0.1 10^3/uL Immature Granulocyte # (Auto) 0.1 0.0-0.1 10^3/uL Neutrophils % (Manual) 84 % Lymphocytes % (Manual) 11 % Monocytes % (Manual) 4 % Eosinophils % (Manual) 1 % Platelet Estimate ADEQUATE Hypochromasia SLIGHT Poikilocytosis MODERATE Anisocytosis SLIGHT Prothrombin Time 13.7 12.2-14.7 SEC INR Comment 1.0 0.8-1.4 Activated Partial Thromboplast Time 31 24-35 SEC Sodium Level 140 135-145 MMOL/L Potassium Level 4.3 3.6-5.0 MMOL/L Chloride Level 105 98-107 MMOL/L Carbon Dioxide Level 23 21-32 MMOL/L Anion Gap 12 5-14 MMOL/L Blood Urea Nitrogen 48 H 7-18 MG/DL Creatinine 2.46 H 0.60-1.30 MG/DL Estimat Glomerular Filtration Rate 27 BUN/Creatinine Ratio 20 Glucose Level 156 H 70-105 MG/DL Lactic Acid Level 0.84 0.50-2.00 MMOL/L Calcium Level 8.7 8.5-10.1 MG/DL Corrected Calcium 9.4 8.5-10.1 MG/DL Magnesium Level 2.0 1.6-2.4 MG/DL Total Bilirubin 0.2 0.1-1.0 MG/DL Aspartate Amino Transf (AST/SGOT) 15 5-34 U/L Alanine Aminotransferase (ALT/SGPT) 7 0-55 U/L Alkaline Phosphatase 74 40-136 U/L Ammonia 22 11-32 UMOL/L Total Protein 7.1 6.4-8.2 GM/DL Albumin 3.1 L 3.2-4.5 GM/DL Lipase 16 8-78 U/L TSH [place] Testing 1.04 0.35-4.94 UIU/ML Serum Alcohol < 10 <10 MG/DL Influenza Type A (RT-PCR) Not Detected Not Detecte Influenza Type B (RT-PCR) Not Detected Not Detecte SARS-CoV-2 RNA (RT-PCR) Not Detected Not Detecte Urine Color YELLOW Urine Clarity SLIGHTLY CLOUDY Urine pH 6.0 5-9 Urine Specific [place] 1.025 H 1.016-1.022 Urine Protein 3+ H NEGATIVE Urine Glucose (UA) NEGATIVE NEGATIVE Urine Ketones NEGATIVE NEGATIVE Urine Nitrite POSITIVE H NEGATIVE Urine Bilirubin NEGATIVE NEGATIVE Urine Urobilinogen 0.2 < = 1.0 MG/DL Urine Leukocyte Esterase 1+ H NEGATIVE Urine RBC (Auto) TRACE H NEGATIVE Urine RBC 2-5 H /HPF Urine WBC 50-100 H /HPF Urine Squamous Epithelial Cells 2-5 /HPF Urine Crystals PRESENT H /LPF Urine Amorphous Sediment RARE SHAW URATES H /LPF Urine Bacteria MODERATE H /HPF Urine Casts PRESENT /LPF Urine Hyaline Casts 0-2 H /LPF Urine Granular Casts 2-5 H /LPF Urine Mucus SMALL H /LPF Urine Culture Indicated CULTURE PENDING Urine Opiates Screen NEGATIVE NEGATIVE Urine Oxycodone Screen NEGATIVE NEGATIVE Urine Methadone Screen NEGATIVE NEGATIVE Urine Barbiturates Screen NEGATIVE NEGATIVE Ur Tricyclic Antidepressants Screen NEGATIVE NEGATIVE Urine Phencyclidine Screen NEGATIVE NEGATIVE Urine Amphetamines Screen NEGATIVE NEGATIVE Urine Methamphetamines Screen NEGATIVE NEGATIVE Urine Benzodiazepines Screen POSITIVE H NEGATIVE Urine Cocaine Screen NEGATIVE NEGATIVE Urine Cannabinoids Screen NEGATIVE NEGATIVE My Orders Orders - VICKEY JONES DO Ed Iv/Invasive Line Start (07/28/23 21:31) Ekg Tracing (07/28/23 21:31) O2 (07/28/23 21:31) Monitor-Rhythm Ecg Trace Only (07/28/23 21:31) Alcohol (07/28/23 21:31) Ammonia (07/28/23 21:31) Cbc And Automated Diff (07/28/23 21:31) Comprehensive Metabolic Panel (07/28/23 21:31) Drug Screen Stat (Urine) (07/28/23 21:31) Lipase (07/28/23 21:31) Magnesium (07/28/23 21:31) Protime With Inr (07/28/23 21:31) Partial Thromboplastin Time (07/28/23 21:31) Thyroid Analyzer (07/28/23 21:31) Ua Culture If Indicated (07/28/23 21:31) Ct Head Wo-R/O Stroke (07/28/23 21:31) Chest 1 View, Ap/Pa Only (07/28/23 21:31) Covid 19 Inhouse Test (07/28/23 21:31) Influenza A And B By Pcr (07/28/23 21:31) Blood Culture (07/28/23 21:35) Sputum Culture (07/28/23 21:35) Urine Culture (07/28/23 21:35) Vital Signs Adult Sepsis Patie Q15M (07/28/23 21:35) Remove Rings In Anticipation O (07/28/23 21:35) Lactic Acid Analyzer (07/28/23 21:35) Cefepime Injection (Cefepime Injection) (07/28/23 21:45) Manual Differential (07/28/23 21:37) Medications Given in ED Current Medications Medications Dose Ordered Sig/[place] Route Start Time Stop Time Status Last Admin Dose Admin Cefepime HCl 1000 mg/Sodium Chloride 50 ml @ 100 mls/hr ONCE ONCE IV 07/28/23 21:45 07/28/23 22:14 DC 07/28/23 22:27 100 MLS/HR Vital Signs/I&O 07/28/23 07/28/23 07/28/23 07/28/23 21:27 21:27 21:27 23:36 Temp 37.1 37.1 Pulse 77 66 Resp 20 18 B/P (MAP) 138/61 (86) 169/79 Pulse Ox 93 96 O2 Delivery Nasal Cannula Nasal Cannula Nasal Cannula Nasal Cannula O2 Flow Rate 4.00 4.00 4.00 4.00 07/29/23 00:00 Intake Total 50 ml Balance 50 ml Capillary Refill : Progress Note : Progress Note VITALS ON ARRIVAL: TEMP 37.1=98.8, HR 77 RR 20, BP 138/61, O2 SAT 77-80% ON ROOM AIR, 93-95% ON 4L / NC GIVEN: -IV FLUIDS -CEFEPIME LABS: -CBC WITH WBC 14.5, HGB 8.0, PLT 318,000 -CMP WITH NORMAL ELECTROLYTES, BUN 48, CR 2.46, GLUCOSE 156, NORMAL LFT'S -LIPASE NORMAL -LACTIC ACID 0.84 -UA WITH 3+ PROTEIN, + NITRITES, 1+ LEUKOCYTES, 50-100 WBC, MODERATE BACTERIA -UDS + BENZO'S -ETOH NEGATIVE -COVID/FLU NEGATIVE EKG UNCHANGED FROM PREVIOUS WITH CHRONIC LBBB CXR WITH BILATERAL INFILTRATES, UNCHANGED FROM PREVIOUS CT HEAD WITH NO ACUTE PROCESS VITALS REMAIN STABLE AND NO FEVER DURING ER STAY NO COUGH, NO DYSPNEA OR WHEEZING, AND O2 SATS REMAIN IN MID 90'S ON O2 AT 4L/NC REVIEWED PRIOR RECORDS, INCLUDING ER VISITS, ADMITS/H&P'S/CONSULTS/DISCHARGE SUMMARIES, TESTS/PROCEDURES. RN SPOKE WITH PT'S , AND SHE STATES HE STARTED ACTING LIKE THIS YESTERDAY/LAST NIGHT, AND THAT HE DID NOT SLEEP ALL NIGHT CODE STATUS IS NOT KNOWN AT THIS TIME. RN DISCUSSED NEED FOR ADMIT AND TEST FINDINGS. 2239--PT BECOMING SOMEWHAT AGITATED, AND BECOMING ARGUMENTATIVE WITH NURSE AND SAID SHE SHOULD JUST SHOOT HERSELF. 2257--PT CONTINUES TO BE SOMEWHAT AGITATED, AND TALKING CONTINUOUSLY AND LOOKING AT THE COUNTER/CABINET AREA IN THE ROOM IF HE IS TALKING TO SOMEONE. DURING ER STAY, HE TALKS ABOUT SEEING HIS [employer] HAT "NEXT TO THE SALT AND PEPPER SHAKERS" ON THE COUNTER IN THE ROOM AND WANTING STAFF MEMBERS TO GIVE HIM HIS HAT---THERE IS NO HAT OR SALT & PEPPER SHAKERS ON THE COUNTER. ECG Initial ECG Impression Date: Jul 28, 2023 Initial ECG Impression Time: 21:47 Initial ECG Rate: 73 Initial ECG Rhythm: Normal Sinus (LBBB) Initial ECG Intervals MN 175 QRS 135 QT/QTC 425/451 Initial ECG Comparisson: Unchanged (CHRONIC LBBB) Comment INTERPRETED BY ME Diagnostic Imaging Comments CXR--PENDING RADIOLOGIST REVIEW -BILATERAL INFILTRATES, PLEURAL EFFUSION--ESSENTIALLY UNCHANGED FROM PREVIOUS. CT HEAD--PER [facility] VIA PHONE AT 2219 -NO ACUTE PROCESS Reviewed: Reviewed by Me, Discussed w/Radiologist Departure Communication (Admissions) 2219--SPOKE WITH DR. MCDUFFIE, HOSPITALIST FOR [facility]. ACCEPTS PT FOR ADMIT. ADVISES TO ADMIT TO ICU ON PRECEDEX DRIP DUE TO AGITATION, CONFUSION AND HALLUCINATIONS. 2226--REPORT TO E-ICU PHYSICIAN. Impression Primary Impression: Altered mental status Additional Impressions: Hallucination, visual Sepsis UTI (urinary tract infection) Chronic respiratory failure Chronic kidney disease Chronic anemia Pneumonia Pleural effusion Disposition: ADMITTED INPATIENT Condition: Stable Admissions Decision to Admit Reason: Admit from ER (General) Decision to Admit/Date: Jul 28, 2023 Time/Decision to Admit Time: 22:20 Departure-Patient Inst. Referrals: MIKEY ZAZUETA APRN (PCP/Family) Primary Care Physician VICKEY JONES DO Jul 28, 2023 21:51
[2023-07-28 21:54] LABS: ALBUMIN 3.1 GM/DL (3.2-4.5); CHLORIDE 105 MMOL/L (98-107); POTASSIUM 4.3 MMOL/L (3.6-5.0); SODIUM 140 MMOL/L (135-145)
[2023-07-28 21:55] LABS: AMMONIA 22 UMOL/L (11-32); CALCIUM 8.7 MG/DL (8.5-10.1)
[2023-07-28 21:56] LABS: GLUCOSE 156 MG/DL (70-105); TOTAL PROTEIN 7.1 GM/DL (6.4-8.2)
[2023-07-28 21:57] LABS: CARBON DIOXIDE 23 MMOL/L (21-32)
[2023-07-28 21:58] LABS: BILIRUBIN,TOTAL 0.2 MG/DL (0.1-1.0)
[2023-07-28 21:59] LABS: PROTHROMBIN TIME PATIENT 13.7 SEC (12.2-14.7)
[2023-07-28 22:00] LABS: ALKALINE PHOSPHATASE 74 U/L (40-136); CREATININE SERUM 2.46 MG/DL (0.60-1.30); GFR ESTIMATED 27
[2023-07-28 22:01] LABS: BUN/CREATININE RATIO 20
[2023-07-28 22:03] LABS: ALANINE AMINOTRANSFERASE 7 U/L (0-55)
[2023-07-28 22:04] LABS: LIPASE 16 U/L (8-78)
[2023-07-28 22:12] LABS: BACTERIA,URINE MODERATE /HPF; BILIRUBIN,URINE NEGATIVE (NEGATIVE); CLARITY,URINE SLIGHTLY CLOUDY; COLOR,URINE YELLOW; GLUCOSE, URINE (UA) NEGATIVE (NEGATIVE); KETONES,URINE NEGATIVE (NEGATIVE); LEUKOCYTE ESTERASE ,URINE 1+ (NEGATIVE); NITRITE,URINE POSITIVE (NEGATIVE); PROTEIN,URINE 3+ (NEGATIVE); WBC,URINE 50-100 /HPF
[2023-07-28 22:13] LABS: AMORPHOUS SEDIMENT,UR RARE AMOR URATES /LPF; HYALINE CASTS, URINE 0-2 /LPF
[2023-07-28 22:15] LABS: AMPHETAMINE SCREEN, URINE NEGATIVE (NEGATIVE); BARBITURATE SCREEN URINE NEGATIVE (NEGATIVE); CANNABINOID SCREEN, URINE NEGATIVE (NEGATIVE); COCAINE SCREEN URINE NEGATIVE (NEGATIVE); METHADONE STAT NEGATIVE (NEGATIVE); OPIATE SCREEN URINE NEGATIVE (NEGATIVE); OXYCODONE STAT NEGATIVE (NEGATIVE); TRICYCLIC ANTIDEPRESSANTS SCRE NEGATIVE (NEGATIVE)
[2023-07-28 22:23] LABS: TSH (THYROID ANALYZER) 1.04 UIU/ML (0.35-4.94)
[2023-07-28 22:49] LABS: ANISOCYTOSIS SLIGHT; EOSINOPHILS % (MANUAL) 1 %; HYPOCHROMASIA SLIGHT; LYMPHOCYTES % (MANUAL) 11 %; MONOCYTES % (MANUAL) 4 %; NEUTROPHILS % (MANUAL) 84 %; PLATELET ESTIMATE ADEQUATE; POIKILOCYTOSIS MODERATE
[2023-07-29] MEDS ORDERED: DexMEDEtomidine 1,000mcg/250ml 250 ML IV ONE (00:20)
[2023-07-29] MEDS ORDERED: DexMEDEtomidine 1,000 MCG/250 ML IV SCH (00:30)
[2023-07-29] MEDS ORDERED: EPINEPHrine 1 MG INJECTION 4 MG in NS (IVPB) 250 ML 248 ML IV SCH (00:30)
[2023-07-29] MEDS ORDERED: ONDANSETRON INJECTION 4 MG/2 ML (SDV) IV PRN (00:30)
[2023-07-29] MEDS ORDERED: ACETAMINOPHEN 500 MG TABLET PO PRN (00:30)
[2023-07-29 00:36] VITALS: BP 138/61
[2023-07-29] MEDS: NS IV 1000 ML 1,000 ML IV SCH ×5 (00:41→22:29)
[2023-07-29] MEDS: VASOPRESSIN INJECTION 20 UNIT in NS (IVPB) 100 ML 100 ML IV SCH ×3 (00:43→23:27)
[2023-07-29] MEDS: NOREPINEPHRINE 8 MG/250 ML 250 ML IV SCH ×2 (00:43→15:17)
[2023-07-29] MEDS ORDERED: RT-Ipratropium/Albuterol NEB 3 ML VIAL INH PRN (01:00)
--- NOTE | 2023-07-29 02:01 | Tele-ICU Progress Note ---
Progress Note 73M with CAD, COPD, frequent admissions, admitted today for hallucinations. Most recent 07/22-07/25 for vertigo thought to be viral in nature. Course complicated by urinary retention, discharged with indwelling singh and tamsulosin. Returns today with overt visual hallucinations. Otherwise alert, oriented, answering questions appropriately. Reportedly had some inappropriate laughter and giggling as well. - sepsis: secondary to urinary source. ---Cefepime initiated. ---Cultures pending. - delirium: secondary to sepsis vs benzos. ---Precedex initiated prior to my assessment. ---hold benzos - CKD: stable, at baseline - hyperglycemia ---ISS ordered Patient assessed via real time audiovisual communication system. CCT 8 min Focused Exam Lactate Level 07/28/23 21:37: Lactic Acid Level 0.84 Height, Weight, BMI Height: 5'11.00" Weight: 225lbs. 0.0oz. 102.206764jx; 26.57 BMI Method:Stated Time of Focused Exam: 22:20 PRASANTH MARSHALL MD Jul 29, 2023 02:01
[2023-07-29] MEDS: RT-Ipratropium/Albuterol NEB 3 ML VIAL INH SCH ×4 (03:49→19:47)
[2023-07-29 04:48] LABS: BASOPHILS # (AUTO) 0.1 10^3/uL (0.0-0.1); BASOPHILS % (AUTO) 1 % (0-10); EOSINOPHILS # (AUTO) 0.4 10^3/uL (0.0-0.3); EOSINOPHILS % (AUTO) 4 % (0-10); HEMATOCRIT 25 % (40-54); HEMOGLOBIN 7.6 g/dL (13.3-17.7); LYMPHOCYTES # (AUTO) 1.3 10^3/uL (1.0-4.0); LYMPHOCYTES % (AUTO) 12 % (12-44); MEAN CORPUSCULAR HEMOGLOBIN 26 pg (25-34); MEAN CORPUSCULAR HGB CONC 31 g/dL (32-36); MEAN CORPUSCULAR VOLUME 84 fL (80-99); MEAN PLATELET VOLUME 10.4 fL (9.0-12.2); MONOCYTES % (AUTO) 9 % (0-12); NEUTROPHILS # (AUTO) 8.6 10^3/uL (1.8-7.8); NEUTROPHILS % (AUTO) 75 % (42-75); PLATELET COUNT 273 10^3/uL (130-400); WHITE BLOOD COUNT 11.4 10^3/uL (4.3-11.0)
[2023-07-29 05:09] LABS: ALBUMIN 2.9 GM/DL (3.2-4.5); BILIRUBIN,TOTAL 0.2 MG/DL (0.1-1.0); CALCIUM 8.4 MG/DL (8.5-10.1); CREATININE SERUM 2.33 MG/DL (0.60-1.30); MAGNESIUM 1.9 MG/DL (1.6-2.4); PHOSPHORUS 4.6 MG/DL (2.3-4.7); TOTAL PROTEIN 6.2 GM/DL (6.4-8.2)
[2023-07-29] MEDS: inSUlin ASPART 1 UNIT/0.01 ML (PER UNIT) SC SCH ×4 (06:23→20:22)
[2023-07-29] MEDS: CEFEPIME INJECTION 1,000 MG in NS (IVPB) 50 ML 50 ML IV SCH ×3 (06:29→22:29)
[2023-07-29] MEDS ORDERED: NS IV 500 ML 500 ML IV PRN (07:00)
--- NOTE | 2023-07-29 07:01 | Diagnostic Imaging Report ---
EXAMINATION: CT head without contrast. TECHNIQUE: Multiple contiguous axial images were obtained through the brain without the use of intravenous contrast. All CT scans use one or more of the following dose optimizing techniques: automated exposure control, MA and/or KvP adjustment based on patient size and exam type or iterative reconstruction. HISTORY: Altered mental status, hallucinations COMPARISON: 07/22/2023 FINDINGS: Mild diffuse cerebral volume loss with proportional enlargement of the ventricles and sulci. Mild hypodensities throughout the supratentorial white matter of both cerebral hemispheres. No acute intraparenchymal hemorrhage or abnormal extra axial fluid collection. No hyperdense vessel. The calvarium is intact. There is a right mastoid effusion. The visualized paranasal sinuses are clear. Surgical changes from bilateral cataract repair. IMPRESSION: 1. No acute intracranial abnormality. 2. Chronic microangiopathy and volume loss. 3. Agree with preliminary interpretation. Dictated by: Dictated on workstation # [id number]
--- NOTE | 2023-07-29 07:23 | Diagnostic Imaging Report ---
HISTORY: Altered mental status COMPARISON: 07/22/2023 TECHNIQUE: Frontal view of the chest FINDINGS: There is prominent bullous disease in the right lung apex. There are airspace opacities in the lung bases. There is no large effusion or pneumothorax. The cardiac silhouette is normal in size. There is slight rightward shift of the mediastinum which is stable. IMPRESSION: 1. Stable chronic findings in the lungs with scarring and bullous disease. No new consolidation is seen. Dictated by: Dictated on workstation # [id number]
--- NOTE | 2023-07-29 07:43 | Physician Query Clarification ---
PQ-Link Infection to Dev/Proc Admission/Discharge Admission Date: Jul 28, 2023 at 23:45 Discharge Date: Dr. Sabillon, The medical record reflects the following clinical scenario: History/Risk Factors: Sepsis, UTI, indwelling singh Clinical Findings: AMS, visual hallucinations, UA - specific gravity 1.025, bacteria moderate, Esterase 1+, urine WBC 50-100 Treatment: IV Cefepime] Question: Can you specify if the UTI is due to/associated with the indwelling singh? Please document a response in Progress Note or Discharge Summary. 1. Yes - UTI is due to/associated with the indwelling singh. 2. No - UTI is not due to/associated with the indwelling singh. 3. Other, with explanation of the clinical findings. 4. Clinically undetermined, no explanation for the clinical findings. PHYSICIAN RESPONSE Specify if infection: 1 In responding to this query, please exercise your independent professional judgment. The purpose of this communication is to more accurately reflect the complexity of your patients condition. The fact that a question is asked does not imply that any particular answer is desired or expected. Thank you for your timely response to this clarification. Requestors name: Ravinder THIS PHYSICIAN QUERY FORM IS A PERMANENT PART OF THE MEDICAL RECORD RAVINDER MALDONADO Jul 29, 2023 07:43 MARY SABILLON DO Jul 29, 2023 18:47
--- NOTE | 2023-07-29 08:00 | Tele-ICU Progress Note ---
Subjective Date Seen by a Provider: Jul 29, 2023 Subjective/Events-last exam (Tele-ICU Physician , Progress Note ) Service provided via interactive audio and video telecommunAquicore E-CARE system to a patient admitted to ICU bed in [facility]. Patient is seen today due to persistent need of ICU care Available chart/ vitals / labs / Images reviewed Video assessment done using teleICU camera, rest of exam as per RN Discussed with RN Events overnight : hypotensive , Hb stable , s/p 1 u PRBC 07/27 Afebrile hemodynamically stable Respiratory - ra I/O = 73 yo M admitted with delirium, hallucinations. This am appears appropriate. No hallucinations, Does not appear delirious, No known Hx of EtOH or drug abuse No CP, No SOB, abd pain. On IV Precedex @ 0.4 possible from BDZ's Has COPD, on 3-4 l/min home oxygen, CXR today shows elevated diaphgrams, some fluid in fissure Sepsis Event Evaluation Height, Weight, BMI Height: 5'11.00" Weight: 225lbs. 0.0oz. 102.651454fq; 26.57 BMI Method:Stated Focused Exam Lactate Level 07/28/23 21:37: Lactic Acid Level 0.84 Time of Focused Exam: 22:20 Exam Exam Patient acknowledged, consented, and participated in this virtual visit which was conducted using real time audio/video Vital Signs Date Time Temp Pulse Resp B/P (MAP) Pulse Ox O2 Delivery O2 Flow Rate FiO2 07/29/23 06:00 54 11 148/62 (98) 100 High Flow N/C 7.00 07/29/23 05:00 53 12 146/64 (100) 100 High Flow N/C 7.00 07/29/23 04:41 58 131/82 07/29/23 04:15 54 11 147/65 (99) 98 High Flow N/C 7.00 07/29/23 04:00 95 High Flow N/C 5.00 07/29/23 03:00 58 12 131/82 (97) 99 High Flow N/C 7.00 07/29/23 02:00 67 13 155/50 (90) 94 High Flow N/C 7.00 07/29/23 01:15 69 129/55 (82) 98 High Flow N/C 7.00 07/29/23 01:00 70 91/64 (72) 96 High Flow N/C 7.00 07/29/23 01:00 70 07/29/23 00:45 68 14 118/53 (92) 94 High Flow N/C 7.00 07/29/23 00:41 73 154/62 07/29/23 00:36 37.1 77 93 07/29/23 00:30 72 26 127/80 (99) 93 High Flow N/C 7.00 07/29/23 00:15 73 21 154/62 (83) 94 High Flow N/C 7.00 07/29/23 00:00 69 16 124/78 (85) 96 High Flow N/C 7.00 07/29/23 00:00 96 High Flow N/C 7.00 07/28/23 23:53 80 07/28/23 23:52 36.7 71 18 150/82 (104) 94 High Flow N/C 7.00 07/28/23 23:36 37.1 66 18 169/79 96 Nasal Cannula 4.00 07/28/23 21:27 37.1 77 20 138/61 (86) 93 Nasal Cannula 4.00 07/28/23 21:27 Nasal Cannula 4.00 07/28/23 21:27 Nasal Cannula 4.00 I & O 07/29/23 07:00 Intake Total 400 ml Output Total 2100 ml Balance -1700 ml Height & Weight Height: 5'11.00" Weight: 225lbs. 0.0oz. 102.677625jp; 26.57 BMI Method:Stated General Appearance: No Apparent Distress, WD/WN, Other (PT ACTIVELY HALLUCINATING ON ARRIVAL--SEEING CARS IN ROOM, TALKING ABOUT STAFF MEMBERS HAIR--SAYING IT'S BLOND WHEN IT IS ACTUALLY RED, SAYING A DIFFERENT STAFF MEMBER'S HAIR IS JODIE HAIR WHITE, WHEN IT IS VERY DARK BROWN, ETC. PT IS VERY JOVIAL. PT REEKS OF CIGARETTES AND THERE ARE EXTENSIVE CIGARETTE BURN HOLES IN CLOTHING AND HIS HOUSE SLIPPERS. ) HEENT: PERRL/EOMI Neck: Normal Inspection Respiratory: Lungs Clear, No Accessory Muscle Use, No Respiratory Distress, Rales Cardiovascular: Regular Rate, Rhythm, No Edema Capillary Refill: Less Than 3 Seconds Gastrointestinal: normal bowel sounds, non tender, soft Extremity: Normal Capillary Refill, No Pedal Edema Neurologic/Psychiatric: Alert, Oriented x3, No Motor/Sensory Deficits, Other ( ABOVE) Skin: Normal Color, Warm/Dry Results Lab Laboratory Tests 07/28/23 21:37 07/29/23 03:55 Assessment/Plan Assessment/Plan Delirium Critical Care: Critically Ill Patient Time spent with patient (mins): 20 CAMERON CHEUNG MD Jul 29, 2023 08:00
--- NOTE | 2023-07-29 10:25 | Diagnostic Imaging Report ---
INDICATION: Pneumonia. COMPARISON: 07/28/2023. FINDINGS: Volume loss and infiltrates bilaterally, greater right, have progressed. Bullous changes in the right apex with unchanged apical lucency are stable. The heart size has increased and is there increased vascular congestion. IMPRESSION: Progressive cardiomegaly, venous congestion, and likely an element of increased edema with worsened pneumonia. Lucency in the right apex is unchanged, presumed stable bullous disease. No pneumothorax. The right pleural fluid has likely also mildly progressed. Dictated by: Dictated on workstation # [id number]
--- NOTE | 2023-07-29 10:44 | History & Physical-Hospitalist ---
SHERI STONE MD, RESIDENT 07/29/23 1044: History of Present Illness HPI/Chief Complaint CC: Confusion Patient presents via EMS from home due to hallucinations and confusion. Patient is quite familiar to our staff as he has been frequently hospitalized as of late. Was discharged a couple days ago after being admitted for vertigo. It was noted that he was unable to urinate on his own and thus he was sent home with a Johnson catheter. Per ED physician evaluation it does appear that patient was oriented but was confused and unable to provide any history. He was placed on a Precedex drip and admitted to the ICU for further management. Work-up was notable for infection delete that urinary tract infection for which he was started on cefepime. This a.m., patient continues to be oriented but does mention that he was seeing things. He continues to be on the Precedex drip at this time. He otherwise has no concerns today. Source: patient, RN/MD Exam Limitations: no limitations Date Seen 07/29/23 Time Seen by a Provider: 07:30 Attending Physician Jasmin Bland Aprn PCP Admitting Physician: Ct Mcduffie DO Attending Physician: Ct Mcduffie DO Referring Physician Date of Admission Jul 28, 2023 at 23:45 Home Medications & Allergies Home Medications Reviewed patient Home Medication Reconciliation performed by pharmacy medication reconciliations emergency technician and/or nursing. Patients Allergies have been reviewed. Allergies Allergies Coded Allergies liraglutide (Verified Allergy, Unknown, 07/22/23) Past Bcxomxd-Erdznw-Hvcjqt Hx Patient Social History Tobacco Use?: No Substance use?: No Alcohol Use?: No Pt feels they are or have been: No Immunizations Up To Date Date of Influenza Vaccine: Jun 29, 2023 First/Initial COVID19 Vaccinat: NOVEMBER 2020, [employer] Second COVID19 Vaccination Nomi: NOVEMBER 2020, [employer] Tetanus Booster (TDap): Unknown Hepatitis A: No Hepatitis B: No PED Vaccines UTD: Yes Date of Pneumonia Vaccine: Jul 25, 2017 Seasonal Allergies Seasonal Allergies: No Current Status Communicates: Verbally Primary Language: Libyan Preferred Spoken Language: Libyan Is interpretation needed?: No Sensory deficits: Vision impairment Past Medical History Surgeries: Cardiac, Coronary Stent, Vascular Surgery Pneumonia, COPD Currently Using CPAP: No Currently Using BIPAP: No Chronic Edema/Swelling, Coronary Artery Disease, Heart Attack, High Cholesterol, Hypertension, Peripheral Vascular Neuropathy Renal Failure Hepatitis, Polyps Degenerate Disk Disease, Arthritis, Chronic Back Pain Diabetes, Insulin dep Cataract, Macular Degeneration Blood Disorders: Yes (CHRONIC ANEMIA) COPD Diabetes Chronic kidney disease Hypertension Family Medical History Patient reports no known family medical history. No Pertinent Family Hx SOCIAL HISTORY: -SMOKES 1 PPD -ETOH--OCCASIONAL USE -DRUGS--DENIES USE MULTIPLE VISITS AND ADMITS --MANY FOR RESPIRATORY ISSUES PT HAS BEEN IN AND OUT OF NURSING HOMES, HAS BEEN BACK AT HOME OF ADMIT ON 07/28/23. PAST SURGICAL HISTORY: -MULTIPLE CARDIAC CATHS AND PERIPHERAL ANGIOGRAMS WITH CAD AND PAD WITH MULTIPLE STENTS AND INTERVENTIONS -PAROTID GLAND BIOPSY -CHEST TUBE -- Echocardiogram of 02-26-[address] Pizarro showed LVEF 55-60% -- Cardiac cath of by Dr. Pizarro showed: Moderate disease in the mid right coronary artery with occlusion of the distal right PDA, small artery not amendable to intervention. Patent multiple stents in the proximal and mid LAD and proximal mid circumflex artery with mild to moderate in-stent restenosis and mild to moderate coronary artery disease in the left system nonobstructive disease. Normal left ventricular end-diastolic pressure - medical management advised at that time - continue antiplatelet therapy. Review of Systems Constitutional: No fever, No weakness EENTM: No no symptoms reported Respiratory: No cough, No dyspnea on exertion, No short of breath Cardiovascular: No chest pain, No edema, No palpitations Gastrointestinal: No abdominal pain, No constipation, No diarrhea, No nausea, No vomiting Genitourinary: No dysuria, No frequency Psychiatric/Neurological: Other (Confusion) Physical Exam Physical Exam Vital Signs Vital Signs - First Documented 07/28/23 21:27 Temp 37.1 Pulse 77 Resp 20 B/P (MAP) 138/61 (86) Pulse Ox 93 Capillary Refill : Less Than 3 Seconds Height, Weight, BMI Height: 5'11.00" Weight: 225lbs. 0.0oz. 102.347023om; 26.57 BMI Method:Stated General Appearance: No Apparent Distress HEENT: PERRL/EOMI, Normal ENT Inspection Neck: Full Range of Motion, Non Tender, Supple Respiratory: Chest Non Tender, Lungs Clear, Normal Breath Sounds, No Accessory Muscle Use, No Respiratory Distress Cardiovascular: Regular Rate, Rhythm, No Edema, No Murmur Gastrointestinal: Normal Bowel Sounds, Non Tender, Soft Genital/Rectal: Other (Johnson in place) Neurologic/Psychiatric: Alert, Oriented x3 Skin: Normal Color, Warm/Dry Results Results/Procedures Labs Laboratory Tests 07/28/23 21:37 07/29/23 03:55 Patient resulted labs reviewed. Imaging: Reviewed Imaging Films, Reviewed Imaging Report Imaging Chest x-ray (07/28/2023): IMPRESSION: 1. Stable chronic findings in the lungs with scarring and bullous disease. No new consolidation is seen. CT head (07/28/2023): IMPRESSION: 1. No acute intracranial abnormality. 2. Chronic microangiopathy and volume loss. 3. Agree with preliminary interpretation. Assessment/Plan Admission Diagnosis Confusion Admission Status: Inpatient Order (span 2 midnights) Reason for Inpatient Admission: ICU admission requiring Precedex for confusion Diagnosis/Problems Diagnosis/Problems (1) Confusion Status: Acute Assessment & Plan: Patient presents for confusion. Unclear etiology at this time but may be secondary to UTI. Manage per below. Plan: Continue Precedex for agitation related to confusion, wean as tolerated If able to wean off Precedex today, will transfer patient to the floor. (2) UTI (urinary tract infection) Status: Acute Assessment & Plan: Patient noted to have a UTI with positive nitrites, 1+ leukocytes and 50-100 WBC. May explain patient's confusion. This may be secondary to catheter. Leukocytosis improving as of this morning. Plan: Continue cefepime for UTI treatment Follow-up urine culture (3) CAD (coronary artery disease) Onset Date: Unknown Status: Chronic Assessment & Plan: Continue CIRCUS ROUSTABOUT medications (4) COPD (chronic obstructive pulmonary disease) Onset Date: Unknown Status: Chronic Assessment & Plan: Patient has a history of COPD has had multiple hospitalization secondary to COPD exacerbation. Chest x-ray during this hospitalization is normal. Patient on 4 to 5 L of oxygen at baseline. Plan: Continue CIRCUS ROUSTABOUT medications Wean oxygen to home levels as tolerated (5) Hypertension Status: Chronic Assessment & Plan: Continue CIRCUS ROUSTABOUT medications. (6) History of [place] (myocardial infarction) Status: Chronic Assessment & Plan: Continue CIRCUS ROUSTABOUT medications. (7) CHF (congestive heart failure) Status: Chronic Assessment & Plan: Continue CIRCUS ROUSTABOUT medications. CT MCDUFFIE DO 07/30/23 0449: History of Present Illness HPI/Chief Complaint CC: AMS HPI: This is a 73yoWM known from multiple hospital stays with end stage COPD and severe CKD who presents to the ER with confusion. UTI treated with IV abx since admit. Precedex maintained due to agitation. Patient is confused and difficult to follow conversation topic. Source: patient, RN/MD, old records Exam Limitations: clinical condition (confusion) Past Ehytkul-Dewrmj-Hmaqpp Hx Patient Social History Marrital Status: Employed/Student: retired Smoking Status: Former Smoker Past Medical History Pneumonia, COPD Chronic Edema/Swelling, Coronary Artery Disease, High Cholesterol, Hypertension Neuropathy Gastroesophageal Reflux, Gastrointestinal Bleed Arthritis, Chronic Back Pain Family Medical History Patient reports no known family medical history. Review of Systems Constitutional: see HPI Physical Exam Physical Exam General Appearance: No Apparent Distress, Chronically ill Respiratory: Lungs Clear, Normal Breath Sounds Cardiovascular: Regular Rate, Rhythm Neurologic/Psychiatric: Alert, Disoriented Assessment/Plan Admission Diagnosis Assessment: Metabolic encephalopathy UTI COPD CKD severe stage IV HTN HLP COPD O2 dependence Anemia Plan: ICU Precedex Home meds I personally performed the [place] portions of the visit, discussed case with resident and concur with resident documentation of history, physical exam, assessment and treatment plan unless otherwise noted. Admission Status: Inpatient Order (span 2 midnights) Reason for Inpatient Admission: agitation with UTI SHERI STONE MD, RESIDENT Jul 29, 2023 10:44 CT MCDUFFIE DO Jul 30, 2023 04:49
[2023-07-29] MEDS ORDERED: TMSL.4C PO (15:42)
[2023-07-29] MEDS ORDERED: BTH10T PO (15:42)
[2023-07-29] MEDS ORDERED: RT-ALBUTEROL SULF 2.5 MG/3 ML PRE-MIX VIAL INH PRN (19:45)
[2023-07-29] MEDS ORDERED: SCOPOLAMINE 1.5 MG PATCH TD SCH (19:45)
[2023-07-29] MEDS ORDERED: NITROGLYCERIN 0.4 MG SL TABLETS BTL 25'S SL PRN (19:45)
[2023-07-29] MEDS: BETHANECHOL 10 MG TABLET PO SCH (20:21)
[2023-07-29] MEDS: FUROSEMIDE 40 MG TABLET PO SCH (20:21)
[2023-07-29] MEDS: inSUlin DETERMIR 1 UNIT/0.01 ML (CHARGE PER UNIT) SQ SCH (20:21)
[2023-07-29] MEDS: FLUTICASONE/VILANTEROL 200/25 MCG (7 DOSES) IH SCH (20:48)
[2023-07-29] MEDS: TIOTROPIUM INH 4 GM (SPIRIVA Respimat) IH SCH (20:48)
[2023-07-29 20:55] VITALS: BP 144/62
[2023-07-29] MEDS ORDERED: INSULIN DETEMIR 20 UNIT SQ SCH (21:00)
[2023-07-29] MEDS ORDERED: NON-FORMULARY MEDICATION 1 EA EA (Budesonide/Glycopyr/Formoterol (Breztri Aerosphere Inhal IH SCH (21:00)
[2023-07-30] MEDS: RT-Ipratropium/Albuterol NEB 3 ML VIAL INH SCH ×4 (01:23→21:11)
[2023-07-30 04:50] LABS: BASOPHILS # (AUTO) 0.1 10^3/uL (0.0-0.1); BASOPHILS % (AUTO) 1 % (0-10); EOSINOPHILS # (AUTO) 0.3 10^3/uL (0.0-0.3); EOSINOPHILS % (AUTO) 2 % (0-10); HEMATOCRIT 24 % (40-54); HEMOGLOBIN 7.2 g/dL (13.3-17.7); LYMPHOCYTES # (AUTO) 0.8 10^3/uL (1.0-4.0); LYMPHOCYTES % (AUTO) 7 % (12-44); MEAN CORPUSCULAR HEMOGLOBIN 26 pg (25-34); MEAN CORPUSCULAR HGB CONC 30 g/dL (32-36); MEAN CORPUSCULAR VOLUME 85 fL (80-99); MEAN PLATELET VOLUME 10.7 fL (9.0-12.2); MONOCYTES % (AUTO) 8 % (0-12); NEUTROPHILS # (AUTO) 10.7 10^3/uL (1.8-7.8); NEUTROPHILS % (AUTO) 83 % (42-75); PLATELET COUNT 280 10^3/uL (130-400)
[2023-07-30 05:07] LABS: ALBUMIN 2.8 GM/DL (3.2-4.5); BILIRUBIN,TOTAL 0.2 MG/DL (0.1-1.0); CALCIUM 8.1 MG/DL (8.5-10.1); CREATININE SERUM 2.01 MG/DL (0.60-1.30); MAGNESIUM 1.6 MG/DL (1.6-2.4); PHOSPHORUS 3.8 MG/DL (2.3-4.7); TOTAL PROTEIN 6.1 GM/DL (6.4-8.2)
[2023-07-30] MEDS: POTASSIUM CHLORIDE 20 MEQ TABLET PO SCH (05:22)
[2023-07-30] MEDS: inSUlin ASPART 1 UNIT/0.01 ML (PER UNIT) SC SCH ×4 (05:22→20:51)
[2023-07-30] MEDS ORDERED: MAGNESIUM 1 GM/100 ML IVPB 400 ML IV ONE (05:34)
[2023-07-30] MEDS: NS IV 1000 ML 1,000 ML IV SCH (05:46)
[2023-07-30] MEDS: CEFEPIME INJECTION 1,000 MG in NS (IVPB) 50 ML 50 ML IV SCH ×3 (05:46→20:56)
[2023-07-30] MEDS: FUROSEMIDE 40 MG TABLET PO SCH ×2 (05:47→15:33)
[2023-07-30] MEDS: MAGNESIUM 1 GM/100 ML IVPB 100 ML IV SCH ×3 (05:47→08:04)
[2023-07-30] MEDS: BETHANECHOL 10 MG TABLET PO SCH ×4 (05:47→20:56)
[2023-07-30] MEDS: NOREPINEPHRINE 8 MG/250 ML 250 ML IV SCH (05:48)
[2023-07-30] MEDS ORDERED: POTASSIUM CL 10MEQ/50ML IVPB 50 ML IV SCH (06:00)
[2023-07-30] MEDS ORDERED: MAGNESIUM 1 GM/100 ML IVPB 100 ML IV SCH (06:00)
[2023-07-30] MEDS: TIOTROPIUM INH 4 GM (SPIRIVA Respimat) IH SCH (06:25)
[2023-07-30] MEDS: FLUTICASONE/VILANTEROL 200/25 MCG (7 DOSES) IH SCH (06:25)
--- NOTE | 2023-07-30 07:28 | Diagnostic Imaging Report ---
INDICATION: Pneumonia Frontal chest obtained at 0153 a.m. and compared to 07/29/2023. There is cardiomegaly. There is central vascular congestion with diffuse interstitial edema and bilateral infiltrate. There is unchanged elevation of the right hemidiaphragm. Bullous change in the right apex again noted. There is right apical pleural thickening unchanged. IMPRESSION: Cardiomegaly and central vascular congestion with diffuse interstitial edema and bilateral infiltrates are unchanged. Bullous changes in right apex are noted with unchanged right apical pleural thickening. Unchanged elevation of the right hemidiaphragm. Dictated by: Dictated on workstation # [id number]
[2023-07-30] MEDS ORDERED: NON-FORMULARY MEDICATION 1 EA EA (Folic Acid 0.4 MG) PO SCH (09:00)
[2023-07-30] MEDS ORDERED: INSULIN DETEMIR 24 UNIT SQ SCH (09:00)
[2023-07-30] MEDS ORDERED: ALOGLIPTIN BENZOATE 6.25 MG PO SCH (09:00)
[2023-07-30] MEDS ORDERED: NON-FORMULARY MEDICATION 1 EA EA (Fluticasone Propionate (Flonase Allergy Relief) 0 SPRAY) NSEACH SCH (09:00)
[2023-07-30] MEDS: amLODIPine 5 MG TABLET PO SCH (09:11)
[2023-07-30] MEDS: ASPIRIN enteric coated 81MG TABLET PO SCH (09:11)
[2023-07-30] MEDS: PANTOPRAZOLE 40 MG TABLET PO SCH (09:11)
[2023-07-30] MEDS: CYANOCOBALAMIN 1,000 MCG TABLET PO SCH (09:11)
[2023-07-30] MEDS: CLOPIDOGREL 75 MG TABLET PO SCH (09:11)
[2023-07-30] MEDS: FOLIC ACID 1 MG TAB PO SCH (09:11)
[2023-07-30] MEDS: inSUlin DETERMIR 1 UNIT/0.01 ML (CHARGE PER UNIT) SQ SCH ×2 (09:12→20:57)
--- NOTE | 2023-07-30 09:37 | Tele-ICU Progress Note ---
Subjective Date Seen by a Provider: Jul 30, 2023 Time Seen by a Provider: 09:37 Subjective/Events-last exam (Tele-ICU Physician , Progress Note ) Service provided via interactive audio and video telecommunications E-CARE system to a patient admitted to ICU bed in [facility]. Patient is seen today due to persistent need of ICU care Available chart/ vitals / labs / Images reviewed Video assessment done using teleICU camera, rest of exam as per RN Discussed with RN Events overnight : - BIPAP last night for WOB Afebrile hemodynamically stable Respiratory - 5l I/O =neg 2 L Drips: Pressors- no Hospital course: A/P AECOPD, on 3-4 l/min home oxygen, CXR today shows elevated diaphgrams, some fluid in fissure -on 4 to 5 L of oxygen at baseline. - BIPAP last night for WOB delirium, hallucinations. - now appears appropriate. No hallucinations, Does not appear delirious, No known Hx of EtOH or drug abuse - precedex OFF -possible from scopolamine patch - was started recently - OFF noww CKD - stable cr 2 Anemia - hb 7.2 Urinary retentioon on recent admission- went home with singh - suspected UTI - on abx now , GNR in urine CAD, PAD - stable -EF 50% Lines : , (Central Line Necessity Reviewed) Singh: OG: Nutrition: Analgesia: Anxiety/ delirium VTE Prophylaxis: SCD , ambulate Stress Ulcer Prophylaxis: Plans in collaboration with bedside consultants and IM MDs. Discussed with RN to reach out if any questions or concerns Case and care daily discussed on multidisciplinary rounds ( RN, PharmD, Staying Machine Operator , Respiratory Therapy, distillery worker general ) A total of 22 minutes of critical care time was devoted to this patient today, required to treat and/or prevent further deterioration of critical care condition ( as above ) I am remotely monitoring this patient from another state. I am unable to do the bedside exam, and history/physical and pertinent information is taken from other notes in the computer and bedside staff. Sepsis Event Evaluation Height, Weight, BMI Height: 5'11.00" Weight: 225lbs. 0.0oz. 102.502683dg; 26.57 BMI Method:Stated Focused Exam Lactate Level 07/28/23 21:37: Lactic Acid Level 0.84 Time of Focused Exam: 22:20 Exam Exam Patient acknowledged, consented, and participated in this virtual visit which was conducted using real time audio/video Vital Signs Date Time Temp Pulse Resp B/P (MAP) Pulse Ox O2 Delivery O2 Flow Rate FiO2 07/30/23 07:50 36.4 07/30/23 06:28 Nasal Cannula 7.00 07/30/23 06:27 Nasal Cannula 7.00 07/30/23 06:27 98 Nasal Cannula 7.00 07/30/23 06:05 High Flow N/C 7.00 07/30/23 06:00 87 154/67 (96) 99 High Flow N/C 7.00 07/30/23 05:00 95 150/69 (97) 96 NIV Bilevel 55.00 07/30/23 04:00 90 145/68 (95) 99 NIV Bilevel 55.00 07/30/23 04:00 97 NIV Bilevel 55 07/30/23 03:46 36.8 07/30/23 03:00 96 147/67 (91) 98 NIV Bilevel 55.00 07/30/23 02:00 NIV Bilevel 55.00 07/30/23 02:00 101 152/68 (104) 92 NIV Bilevel 55.00 07/30/23 01:23 94 Nasal Cannula 7.00 07/30/23 01:20 High Flow N/C 7.00 07/30/23 01:00 82 07/30/23 01:00 82 159/80 (122) 100 NIV Bilevel 55.00 07/30/23 00:00 84 154/69 (106) 100 NIV Bilevel 55.00 07/29/23 23:59 97 NIV Bilevel 55 07/29/23 23:00 89 154/82 (116) 99 NIV Bilevel 55.00 07/29/23 22:30 89 159/70 (104) 100 NIV Bilevel 55.00 07/29/23 22:00 94 162/73 (107) 100 NIV Bilevel 55.00 07/29/23 21:30 90 158/73 (98) 99 NIV Bilevel 55.00 07/29/23 21:00 98 150/71 (96) 100 NIV Bilevel 55.00 07/29/23 20:58 NIV Bilevel 55.00 07/29/23 20:55 105 33 97 55.00 07/29/23 20:49 89 Nasal Cannula 7.00 07/29/23 20:48 89 Nasal Cannula 7.00 07/29/23 20:30 99 144/62 (93) 93 High Flow N/C 7.00 07/29/23 20:00 92 High Flow N/C 7.00 07/29/23 20:00 35.8 High Flow N/C 7.00 07/29/23 20:00 90 149/64 (75) 92 High Flow N/C 7.00 07/29/23 19:47 95 Nasal Cannula 7.00 07/29/23 19:30 92 156/70 (112) 91 High Flow N/C 7.00 07/29/23 19:15 80 160/75 (107) 91 High Flow N/C 7.00 07/29/23 19:00 89 132/101 (120) High Flow N/C 7.00 07/29/23 19:00 89 07/29/23 18:00 68 152/70 (97) 95 High Flow N/C 7.00 07/29/23 17:00 67 157/65 (95) 91 High Flow N/C 7.00 07/29/23 16:30 96 High Flow N/C 5.00 07/29/23 16:10 35.8 07/29/23 16:00 61 20 145/58 (87) 98 High Flow N/C 7.00 07/29/23 15:33 100 5.00 07/29/23 15:00 56 18 141/58 (85) 97 High Flow N/C 7.00 07/29/23 14:00 53 11 161/75 (103) 100 High Flow N/C 7.00 07/29/23 13:00 56 07/29/23 13:00 59 17 155/63 (93) 99 High Flow N/C 7.00 07/29/23 12:34 56 145/65 07/29/23 12:27 95 High Flow N/C 5.00 07/29/23 12:00 55 11 157/67 (97) 100 High Flow N/C 7.00 07/29/23 11:38 35.3 07/29/23 11:00 56 10 145/65 (91) 99 High Flow N/C 7.00 07/29/23 10:00 55 13 152/62 (92) 100 High Flow N/C 7.00 I & O 07/30/23 07:00 Intake Total 2220 ml Output Total 2900 ml Balance -680 ml Height & Weight Height: 5'11.00" Weight: 225lbs. 0.0oz. 102.021357ms; 26.57 BMI Method:Stated General Appearance: No Apparent Distress, Chronically ill HEENT: PERRL/EOMI Neck: Normal Inspection Respiratory: Lungs Clear, Normal Breath Sounds Cardiovascular: Regular Rate, Rhythm Capillary Refill: Less Than 3 Seconds Gastrointestinal: normal bowel sounds, non tender, soft Extremity: Normal Capillary Refill, No Pedal Edema Neurologic/Psychiatric: Alert, Disoriented Skin: Normal Color, Warm/Dry Results Lab Laboratory Tests 07/28/23 21:37 07/29/23 03:55 07/30/23 03:47 Assessment/Plan Assessment/Plan (Tele-ICU Physician , Progress Note ) Service provided via interactive audio and video telecommunications E-CARE system to a patient admitted to ICU bed in [facility]. Patient is seen today due to persistent need of ICU care Available chart/ vitals / labs / Images reviewed Video assessment done using teleICU camera, rest of exam as per RN Discussed with RN Events overnight : - BIPAP last night for WOB Afebrile hemodynamically stable Respiratory - 5l I/O =neg 2 L Drips: Pressors- no Hospital course: A/P AECOPD, on 3-4 l/min home oxygen, CXR today shows elevated diaphgrams, some fluid in fissure -on 4 to 5 L of oxygen at baseline. - BIPAP last night for WOB delirium, hallucinations. - now appears appropriate. No hallucinations, Does not appear delirious, No kno wn Hx of EtOH or drug abuse - precedex OFF -possible from scopolamine patch - was started recently - OFF noww CKD - stable cr 2 Anemia - hb 7.2 Urinary retentioon on recent admission- went home with singh - suspected UTI - on abx now , GNR in urine CAD, PAD - stable -EF 50% Lines : , (Central Line Necessity Reviewed) Singh: OG: Nutrition: Analgesia: Anxiety/ delirium VTE Prophylaxis: SCD , ambulate Stress Ulcer Prophylaxis: Plans in collaboration with bedside consultants and IM MDs. Discussed with RN to reach out if any questions or concerns Case and care daily discussed on multidisciplinary rounds ( RN, PharmD, Staying Machine Operator , Respiratory Therapy, distillery worker general ) A total of 22 minutes of critical care time was devoted to this patient today, required to treat and/or prevent further deterioration of critical care condition ( as above ) I am remotely monitoring this patient from another state. I am unable to do the bedside exam, and history/physical and pertinent information is taken from other notes in the computer and bedside staff. JESSY RAMIREZ MD Jul 30, 2023 09:37
[2023-07-30] MEDS: FLUTICASONE NASAL SPRAY (120 SPRAYS) NS SCH (09:38)
--- NOTE | 2023-07-30 09:46 | Progress Note ---
SHERI STONE MD, RESIDENT 07/30/23 0946: Subjective HPI/CC On Admission Date Seen by Provider: Jul 30, 2023 Time Seen by Provider: 08:15 CC: AMS HPI: This is a 73yoWM known from multiple hospital stays with end stage COPD and severe CKD who presents to the ER with confusion. UTI treated with IV abx since admit. Precedex maintained due to agitation. Patient is confused and difficult to follow conversation topic. Subjective/Events-last exam Patient is doing well this AM. He is no longer having any hallucinations. He believes this was likely secondary to the scopolamine patch. He has been off of the Precedex since 4:30 PM yesterday and has been doing well. Patient would like to go home today if possible. Review of Systems General: No Fatigue; Appetite Pulmonary: No Dyspnea, No Cough Cardiovascular: No: Chest Pain, Palpitations, Edema Gastrointestinal: No: Nausea, Vomiting, Diarrhea, Constipation Genitourinary: No Dysuria Neurological: No: Confusion Focused Exam Lactate Level 07/28/23 21:37: Lactic Acid Level 0.84 Time of Focused Exam: 22:20 Objective Exam Vital Signs Vital Signs Date Time Temp Pulse Resp B/P (MAP) Pulse Ox O2 Delivery O2 Flow Rate FiO2 07/30/23 11:28 36.6 07/30/23 07:48 93 Nasal Cannula 6.00 07/30/23 07:00 94 07/30/23 04:00 55 07/29/23 20:55 33 Capillary Refill : Less Than 3 Seconds General Appearance: No Apparent Distress HEENT: Normal ENT Inspection Neck: Full Range of Motion, Normal Inspection Respiratory: Chest Non Tender, Lungs Clear, Normal Breath Sounds, No Accessory Muscle Use, No Respiratory Distress Cardiovascular: Regular Rate, Rhythm, No Edema, No Murmur Gastrointestinal: Normal Bowel Sounds, Non Tender, Soft Genital/Rectal: Other (Urinary catheter in place) Neurologic/Psychiatric: Alert, Oriented x3 Skin: Normal Color, Warm/Dry Results/Procedures Lab Laboratory Tests 07/30/23 03:47 Patient resulted labs reviewed. Imaging: Reviewed Imaging Films, Reviewed Imaging Report Assessment/Plan Assessment and Plan Assess & Plan/Chief Complaint Altered mental status, hallucinations, UTI Diagnosis/Problems Diagnosis/Problems (1) Confusion Status: Resolved Assessment & Plan: Confusion is resolved at this time. Patient AAO x3 and is no longer having any hallucinations. Has been off of the Precedex since 4:30 PM yesterday. Likely secondary to recent scopolamine patch that was prescribed for dizziness. He is no longer having the symptoms and thus will discontinue this medication. Plan: Continue to monitor for confusion and hallucinations - Moving patient down to 4th floor today Resolution Date/Time: 07/30/23 @ 09:43 (2) UTI (urinary tract infection) Status: Acute Assessment & Plan: Patient noted to have a UTI with positive nitrites, 1+ l eukocytes and 50-100 WBC. May explain patient's confusion. This may be secondary to catheter. Leukocytosis did increase this morning to 13. Plan: Urine culture growing gram-negative rods, organism and susceptibilities pending Follow-up on urine culture Monitor daily CBC - Continue cefepime - Continue catheter care, will refer to urology on discharge Qualifiers: Qualified Codes: N30.00 - Acute cystitis without hematuria (3) CAD (coronary artery disease) Onset Date: Unknown Status: Chronic Assessment & Plan: Continue CAR WORKER medications (4) COPD (chronic obstructive pulmonary disease) Onset Date: Unknown Status: Chronic Assessment & Plan: Patient has a history of COPD has had multiple hos pitalization secondary to COPD exacerbation. Chest x-ray during this hospitalization is normal. Patient on 4 to 5 L of oxygen at baseline. Plan: Continue CAR WORKER medications Wean oxygen to 5 L if able today. (5) Hypertension Status: Chronic Assessment & Plan: Continue CAR WORKER medications. (6) History of [place] (myocardial infarction) Status: Chronic Assessment & Plan: Continue CAR WORKER medications. (7) CHF (congestive heart failure) Status: Chronic Assessment & Plan: Continue CAR WORKER medications. MARY MCDUFFIE DO 07/30/231951: Subjective Subjective/Events-last exam Patient doing much better We will move to fourth floor Objective Exam General Appearance: No Apparent Distress, WD/WN, Chronically ill Respiratory: Lungs Clear, Normal Breath Sounds Cardiovascular: Regular Rate, Rhythm Assessment/Plan Assessment and Plan Assess & Plan/Chief Complaint We will move to fourth floor DC scopolamine patch which could be the cause of the confusion Await urine culture SHERI STONE MD, RESIDENT Jul 30, 2023 09:46 MARY MCDUFFIE DO Jul 30, 2023 19:52
[2023-07-30] MEDS: VASOPRESSIN INJECTION 20 UNIT in NS (IVPB) 100 ML 100 ML IV SCH (10:55)
[2023-07-30 15:25] VITALS: BP 144/65
[2023-07-30] MEDS ORDERED: TAMSULOSIN 0.4 MG (FLOMAX) CAP PO SCH (17:00)
[2023-07-30] MEDS ORDERED: MONTELUKAST 10 MG TABLET PO SCH (17:00)
[2023-07-30 20:05] VITALS: BP 132/63
[2023-07-30 23:36] VITALS: BP 146/66
[2023-07-31] MEDS: RT-Ipratropium/Albuterol NEB 3 ML VIAL INH SCH ×2 (02:43→07:12)
[2023-07-31 04:00] VITALS: BP 138/63
[2023-07-31 04:57] LABS: BASOPHILS # (AUTO) 0.1 10^3/uL (0.0-0.1); BASOPHILS % (AUTO) 0 % (0-10); EOSINOPHILS # (AUTO) 0.5 10^3/uL (0.0-0.3); EOSINOPHILS % (AUTO) 4 % (0-10); HEMATOCRIT 24 % (40-54); HEMOGLOBIN 7.2 g/dL (13.3-17.7); LYMPHOCYTES # (AUTO) 1.2 10^3/uL (1.0-4.0); LYMPHOCYTES % (AUTO) 11 % (12-44); MEAN CORPUSCULAR HEMOGLOBIN 25 pg (25-34); MEAN CORPUSCULAR HGB CONC 30 g/dL (32-36); MEAN CORPUSCULAR VOLUME 84 fL (80-99); MEAN PLATELET VOLUME 10.4 fL (9.0-12.2); MONOCYTES # (AUTO) 1.2 10^3/uL (0.0-1.0); MONOCYTES % (AUTO) 10 % (0-12); NEUTROPHILS # (AUTO) 8.4 10^3/uL (1.8-7.8); NEUTROPHILS % (AUTO) 74 % (42-75); PLATELET COUNT 298 10^3/uL (130-400); WHITE BLOOD COUNT 11.3 10^3/uL (4.3-11.0)
[2023-07-31 05:17] LABS: ALBUMIN 2.9 GM/DL (3.2-4.5); BILIRUBIN,TOTAL 0.3 MG/DL (0.1-1.0); CALCIUM 8.5 MG/DL (8.5-10.1); CREATININE SERUM 2.05 MG/DL (0.60-1.30); MAGNESIUM 2.3 MG/DL (1.6-2.4); PHOSPHORUS 3.9 MG/DL (2.3-4.7); POTASSIUM 4.2 MMOL/L (3.6-5.0); TOTAL PROTEIN 6.3 GM/DL (6.4-8.2)
[2023-07-31] MEDS ORDERED: NS (IVPB) 50 ML 50 ML ONE (05:27)
[2023-07-31] MEDS: CEFEPIME INJECTION 1,000 MG in NS (IVPB) 50 ML 50 ML IV SCH (05:29)
[2023-07-31] MEDS: POTASSIUM CHLORIDE 20 MEQ TABLET PO SCH (05:30)
[2023-07-31] MEDS: FUROSEMIDE 40 MG TABLET PO SCH (05:30)
[2023-07-31] MEDS: BETHANECHOL 10 MG TABLET PO SCH ×2 (05:30→11:31)
[2023-07-31] MEDS: inSUlin ASPART 1 UNIT/0.01 ML (PER UNIT) SC SCH ×2 (05:50→11:29)
[2023-07-31] MEDS: FLUTICASONE/VILANTEROL 200/25 MCG (7 DOSES) IH SCH (07:13)
[2023-07-31] MEDS: TIOTROPIUM INH 4 GM (SPIRIVA Respimat) IH SCH (07:13)
[2023-07-31] MEDS: PANTOPRAZOLE 40 MG TABLET PO SCH (07:55)
[2023-07-31] MEDS: ASPIRIN enteric coated 81MG TABLET PO SCH (07:56)
[2023-07-31] MEDS: CYANOCOBALAMIN 1,000 MCG TABLET PO SCH (07:56)
[2023-07-31] MEDS: FOLIC ACID 1 MG TAB PO SCH (07:56)
[2023-07-31] MEDS: CLOPIDOGREL 75 MG TABLET PO SCH (07:56)
[2023-07-31] MEDS: amLODIPine 5 MG TABLET PO SCH (07:57)
[2023-07-31 08:20] VITALS: BP 125/57
[2023-07-31] MEDS: inSUlin DETERMIR 1 UNIT/0.01 ML (CHARGE PER UNIT) SQ SCH (09:11)
[2023-07-31] MEDS: FLUTICASONE NASAL SPRAY (120 SPRAYS) NS SCH (09:11)
--- NOTE | 2023-07-31 10:35 | Discharge Summary ---
Discharge Summary Hospital Course Was the Problem List Reviewed?: Yes Problems/Dx: (1) Confusion Status: Resolved Assessment & Plan: Confusion is resolved at this time. Patient AAO x3 and is no longer having any hallucinations. Has been off of the Precedex since 4:30 PM yesterday. Likely secondary to recent scopolamine patch that was prescribed for dizziness. He is no longer having the symptoms and thus will discontinue this medication. Plan: Patient continuing to deny confusion and hallucinations today. Likely seco ndary to scopolamine patch. Continue to monitor. (2) UTI (urinary tract infection) Status: Acute Assessment & Plan: Patient noted to have a UTI with positive nitrites, 1+ leukocytes and 50-100 WBC. May explain patient's confusion. This may be secondary to catheter. Leukocytosis did increase this morning to 13. Plan: Urine culture growing gram-negative rods, organism and susceptibilities pending Follow-up on urine culture Monitor daily CBC - Continue cefepime - Continue catheter care, will refer to urology on discharge Qualifiers: Qualified Codes: N30.00 - Acute cystitis without hematuria (3) CAD (coronary artery disease) Status: Chronic Assessment & Plan: Continue PROSTHETIC AIDE medications (4) COPD (chronic obstructive pulmonary disease) Status: Chronic Assessment & Plan: Patient has a history of COPD has had multiple hospitalization secondary to COPD exacerbation. Chest x-ray during this hospitalization is normal. Patient on 4 to 5 L of oxygen at baseline. Plan: Continue PROSTHETIC AIDE medications Continue oxygen at 5 L (5) Hypertension Status: Chronic Assessment & Plan: Continue PROSTHETIC AIDE medications. (6) History of LA (myocardial infarction) Status: Chronic Assessment & Plan: Continue PROSTHETIC AIDE medications. (7) CHF (congestive heart failure) Status: Chronic Assessment & Plan: Continue PROSTHETIC AIDE medications. Hospital Course Date of Admission: Jul 28, 2023 at 23:45 Admission Diagnosis : Family Physician/Provider: Jasmin Bland Aprn Date of Discharge: 07/31/23 Discharge Diagnosis: [Hallucinations] Hospital Course: [Patient is a 73-year-old male with a past medical history of COPD and frequent hospitalizations who was admitted for hallucinations. It was also found that he had a UTI that may have been secondary to recent Johnson catheter placement. He was initially placed on a Precedex drip due to agitation and was admitted to the ICU. Precedex drip was weaned off and patient was becoming more alert. He was recently admitted for vertigo and discharged home on a scopolamine patch. Scopolamine patch was discontinued while in the hospital and this seemed to have improved patient's hallucinations. Treated patient's UTI with IV cefepime. Urine culture was enterobacter cloecae. We will send patient home on 5 more days of cefpodoxime with referral to urology for further management given that patient required Johnson catheter placement due to urinary retention and was unable to spontaneously urinate on his own.] Labs and Pending Lab Test: Laboratory Tests 07/30/23 11:29: Glucometer 126H 07/30/23 15:23: Glucometer 89 07/30/23 20:03: Glucometer 114H 07/31/23 04:16: White Blood Count 11.3H, Red Blood Count 2.85L, Hemoglobin 7.2L, Hematocrit 24L, Mean Corpuscular Volume 84, Mean Corpuscular Hemoglobin 25, Mean Corpuscular Hemoglobin Concent 30L, Red Cell Distribution Width 17.7H, Platelet Count 298, Mean Platelet Volume 10.4, Immature Granulocyte % (Auto) 0, Neutrophils (%) ( Auto) 74, Lymphocytes (%) (Auto) 11L, Monocytes (%) (Auto) 10, Eosinophils (%) (Auto) 4, Basophils (%) (Auto) 0, Neutrophils # (Auto) 8.4H, Lymphocytes # (Auto) 1.2, Monocytes # (Auto) 1.2H, Eosinophils # (Auto) 0.5H, Basophils # (Auto) 0.1, Immature Granulocyte # (Auto) 0.1, Sodium Level 138, Potassium Level 4.2, Chloride Level 106, Carbon Dioxide Level 23, Anion Gap 9, Blood Urea Nitrogen 37H, Creatinine 2.05H, Estimat Glomerular Filtration Rate 34, BUN/Creatinine Ratio 18, Glucose Level 93, Calcium Level 8.5, Corrected Calcium 9.4, Phosphorus Level 3.9, Magnesium Level 2.3, Total Bilirubin 0.3, Aspartate Amino Transf (AST/SGOT) 14, Alanine Aminotransferase (ALT/SGPT) 6, Alkaline Phosphatase 68, Total Protein 6.3L, Albumin 2.9L Microbiology 07/29/23 MRSA Screen - Final, Complete MRSA not isolated 07/28/23 Blood Culture - Preliminary, Resulted 07/28/23 Urine Culture - Preliminary, Resulted Gram Negative [place] Home Meds Active Transderm-Scop (Scopolamine) 1 Mg/3 Day Patch.td72 1 Each TD Q72H 9 Days Furosemide 40 Mg Tablet 40 Mg PO BID Amlodipine Besylate 5 Mg Tablet 5 Mg PO DAILY Folic Acid 0.4 Mg Tablet 0.4 Mg PO DAILY Vitamin B-12 (Cyanocobalamin (Vitamin B-12)) 1,000 Mcg Tablet 1,000 Mcg PO DAILY Breztri Aerosphere Inhaler (Budesonide/Glycopyr/Formoterol) 160 Mcg-9 Mcg-4.8 Mcg/Actuation Hfa.aer.ad 2 Puff IH BID Nesina (Alogliptin Benzoate) 6.25 Mg Tablet 6.25 Mg PO DAILY Flonase Allergy Relief (Fluticasone Propionate) 50 Mcg/Actuation Dequincy.susp 1-2 Dequincy NSEACH DAILY Nitroglycerin 0.4 Mg Tab.subl 0.4 Mg SL UD PRN Montelukast Sodium 10 Mg Tablet 10 Mg PO 1700 Ventolin Hfa (Albuterol Sulfate) 90 Mcg Hfa.aer.ad 2 Puff INH Q4H PRN Lipitor (Atorvastatin Calcium) 40 Mg Tablet 40 Mg PO 1700 Aspirin EC (Aspirin) 81 Mg Tablet.dr 81 Mg PO DAILY Clopidogrel (Clopidogrel Bisulfate) 75 Mg Tablet 75 Mg PO DAILY Pantoprazole Sodium 40 Mg Tablet.dr 40 Mg PO DAILY Reported Urecholine (Bethanechol Chloride) 10 Mg Tablet 10 Mg PO ACHS Flomax (Tamsulosin HCl) 0.4 Mg Cap 0.4 Mg PO 1700 Levemir Flexpen (Insulin Detemir) 100 Unit/Ml (3 Ml) Insuln.pen 20 Unit SQ HS Levemir Flexpen (Insulin Detemir) 100 Unit/Ml (3 Ml) Insuln.pen 24 Unit SQ DAILY Metoprolol Succinate 100 Mg Tab.er.24h 50 Mg PO DAILY TAKES OF A 100MG TAB Assessment/Pt Instructions Please see electronic discharge instructions given to patient. Discharge Instructions Discharge Diet: No Restrictions Activity as Tolerated: Yes Discharge Physical Examination Vital Signs Vital Signs Date Time Temp Pulse Resp B/P (MAP) Pulse Ox O2 Delivery O2 Flow Rate FiO2 07/31/23 08:20 36.4 90 16 125/57 (79) 90 Nasal Cannula 5.00 07/30/23 04:00 55 General Appearance: No Apparent Distress HEENT: Normal ENT Inspection Respiratory: Chest Non Tender, Lungs Clear, Normal Breath Sounds, No Accessory Muscle Use, No Respiratory Distress Cardiovascular: Regular Rate, Rhythm, No Edema, No Murmur Gastrointestinal: Normal Bowel Sounds, Non Tender, Soft, Other (urinary catheter in place) Extremity: No Pedal Edema Skin: Normal Color, Warm/Dry Neurologic/Psychiatric: Alert, Oriented x3 Allergies: Coded Allergies: liraglutide (Verified Allergy, Unknown, 07/22/23) Discharge Summary Date of Admission Jul 28, 2023 at 23:45 Date of Discharge Admission Diagnosis Assessment: Metabolic encephalopathy UTI COPD CKD severe stage IV HTN HLP COPD O2 dependence Anemia Plan: ICU Precedex Home meds I personally performed the [place] portions of the visit, discussed case with resident and concur with resident documentation of history, physical exam, assessment and treatment plan unless otherwise noted. Discharge Diagnosis Altered mental status, hallucinations, UTI (1) Confusion Status: Resolved Assessment & Plan: Confusion is resolved at this time. Patient AAO x3 and is no longer having any hallucinations. Has been off of the Precedex since 4:30 PM yesterday. Likely secondary to recent scopolamine patch that was prescribed for dizziness. He is no longer having the symptoms and thus will discontinue this medication. Plan: Continue to monitor for confusion and hallucinations - Moving patient down to 4th floor today (2) UTI (urinary tract infection) Status: Acute Assessment & Plan: Patient noted to have a UTI with positive nitrites, 1+ leukocytes and 50-100 WBC. May explain patient's confusion. This may be secondary to catheter. Leukocytosis did increase this morning to 13. Plan: Urine culture growing gram-negative rods, organism and susceptibilities pending Follow-up on urine culture Monitor daily CBC - Continue cefepime - Continue catheter care, will refer to urology on discharge Qualifiers: Qualified Codes: N30.00 - Acute cystitis without hematuria (3) CAD (coronary artery disease) Onset Date: Unknown Status: Chronic Assessment & Plan: Continue PROSTHETIC AIDE medications (4) COPD (chronic obstructive pulmonary disease) Onset Date: Unknown Status: Chronic Assessment & Plan: Patient has a history of COPD has had multiple hospitalization secondary to COPD exacerbation. Chest x-ray during this hospitalization is normal. Patient on 4 to 5 L of oxygen at baseline. Plan: Continue PROSTHETIC AIDE medications Wean oxygen to 5 L if able today. (5) Hypertension Status: Chronic Assessment & Plan: Continue PROSTHETIC AIDE medications. (6) History of LA (myocardial infarction) Status: Chronic Assessment & Plan: Continue PROSTHETIC AIDE medications. (7) CHF (congestive heart failure) Status: Chronic Assessment & Plan: Continue PROSTHETIC AIDE medications. SHERI STONE MD, RESIDENT Jul 31, 2023 10:35
[2023-07-31 11:27] VITALS: BP 130/99
--- NOTE | 2023-07-31 12:24 | D/C HH Face to Face Order ---
D/C Face to Face Orders Reconcile Patient Problems Problems Reviewed?: Yes Instructions for Patient Via [email or web address], Patient Instructions/FollowUp: Please take cefpodoxime for an additional 5 days to complete a 7-day course of UTI treatment. Follow-up with urology in 1 week to evaluate catheter and urinary retention. Please discontinue use of scopolamine patch. Physician to follow Patient: Dr. Zavala and [facility] Discharge Diet for Home: No Restrictions Patient Problems: COPD, history of [place], CHF, UTI, urinary retention, hypertension Patient Data-Allergies,Ht & Wt Patient Allergies: Coded Allergies: liraglutide (Verified Allergy, Unknown, 07/22/23) Height (Feet): 5 Height (Inches): 11.00 Weight (Pounds): 225 Weight (Ounces): 0.0 Home Health Need/Face to Face Date of Face to Face: Jul 31, 2023 Clinical Findings: Instability, Shortness of breath I have seen Pt [id number]: Yes Discharged To: Home Diagnosis/Conditions: UTI secondary to urinary retention Patient is Homebound due to: Michael fall risk due to instabilty, Shortness of breath/distress Homebound Status Due to the above stated illness, injury or surgical procedure (medical condition or diagnosis) and associated clinical findings, the patient is homebound because of his/her inability to leave home except with aid of a supportive device and/or person AND leaving the home requires a considerable and taxing effort or is medically contraindicated. Pt req the following assistanc: Aid of another person Home Health Nursing Orders Home Health Services Order: Nursing Services, Bottle Tester-Evaluate & Treat, Physical Therapy-Evaluate & Treat Home Health Infusion Therapy Line Start Date: Jul 28, 2023 Certify Stmt I certify that this patient is under my care and that I, a nurse practitioner or a physician; a family readiness support assistant working with me, had a face to face encounter that - meets the physician face to face encounter requirements with this patient as dated. SHERI STONE MD, RESIDENT Jul 31, 2023 12:24
[2023-07-31] MEDS ORDERED: CEFP200T2 PO (12:27)
== END 2023-07-31 13:55 | disposition home health service (06) | DRG 698 ==
LOC: EDUNIT# 21:26 → ER 21:28 → ICU 23:45 → 4TH 07-30 13:17
PROVIDERS: ADMIT Internal Medicine; ATTEND Internal Medicine
PROC: 5A0935A Assistance with Respiratory Ventilation, Less than 24 Consecutive Hours, High Flow/Velocity Cannula (ICD-10-PCS; principal; 2023-07-28)
DX: T83.592A Infection and inflammatory reaction due to indwelling ureteral stent, initial encounter (principal); A41.9 Sepsis, unspecified organism; J18.9 Pneumonia, unspecified organism; G93.41 Metabolic encephalopathy; J96.10 Chronic respiratory failure, unspecified whether with hypoxia or hypercapnia; I13.0 Hypertensive heart and chronic kidney disease with heart failure and stage 1 through stage 4 chronic kidney disease, or unspecified chronic kidney disease; J44.0 Chronic obstructive pulmonary disease with (acute) lower respiratory infection; N39.0 Urinary tract infection, site not specified; N18.4 Chronic kidney disease, stage 4 (severe); R44.1 Visual hallucinations; E11.22 Type 2 diabetes mellitus with diabetic chronic kidney disease; E11.65 Type 2 diabetes mellitus with hyperglycemia; I50.9 Heart failure, unspecified; R33.9 Retention of urine, unspecified; J44.9 Chronic obstructive pulmonary disease, unspecified; Z99.81 Dependence on supplemental oxygen; D63.1 Anemia in chronic kidney disease; I25.10 Atherosclerotic heart disease of native coronary artery without angina pectoris; I25.2 Old myocardial infarction; Z79.82 Long term (current) use of aspirin; Z79.4 Long term (current) use of insulin; Z79.899 Other long term (current) drug therapy; Z95.5 Presence of coronary angioplasty implant and graft; E78.00 Pure hypercholesterolemia, unspecified; E11.40 Type 2 diabetes mellitus with diabetic neuropathy, unspecified; M19.90 Unspecified osteoarthritis, unspecified site; G89.29 Other chronic pain; M54.9 Dorsalgia, unspecified; H35.30 Unspecified macular degeneration; Z11.52 Encounter for screening for COVID-19
CPT/HCPCS: 36415; 70450; 71045; 80053; 80306; 80320; 81000; 82140; 82947; 83605; 83690; 83735; 84100; 84443; 85007; 85025; 85027; 85610; 85730; 87040; 87077; 87081; 87088; 87186; 87449; 87636; 93005; 93041; 94640; 94660; 96365